=== PATIENT | female | born 1960 | race Caucasian/White ===

== ENCOUNTER 2017-11-28 22:03 | Emergency (ER) | payer OTHER ==
--- OUTSIDE RECORDS SUMMARY | 2017-11-28 22:07 | XMS REPORT | Clinical Summary ---
:1960 Author Organization [facility] Address [address] [place] [address] Care Team Providers Name Role Phone Asked, No Pcp Primary Care Provider Unavailable Allergies Active Allergy Reactions Severity Noted Date Comments Codeine GI Intolerance Medium 10/11/2016 Vomiting Penicillins Anaphylaxis High 04/06/2017 Current Medications Prescription Sig. Disp. Refills Start Date End Date Status spironolactone Take 0.5 mg by Active (ALDACTONE) 25 MG mouth daily. tablet ALPRAZolam (XANAX) 2 Take 2 mg by Active MG tablet mouth 3 (three) times a day. furosemide (LASIX) Take 80 mg by Discontinued 80 mg tablet mouth daily. 7 enalapril (VASOTEC) Take 5 mg by Discontinued 5 MG tablet mouth daily. 7 digOXIN (LANOXIN) Take 125 mcg Discontinued 125 mcg tablet by mouth 7 daily. potassium chloride Take 20 mEq by Discontinued (KLOR-CON) 20 mEq mouth daily. 7 packet traMADol (ULTRAM) 50 Take 1 tablet 60 tablet 0 04/19/2017 mg tablet (50 mg total) 7 by mouth 3 (three) times a day as needed for moderate pain for up to 60 doses. amIODarone Take 1 tablet 60 tablet 1 04/19/2017 (PACERONE) 400 MG (400 mg total) 7 tablet by mouth every 12 (twelve) hours for 30 days. apixaban (ELIQUIS) Take 1 tablet 60 tablet 0 04/19/2017 2.5 mg tablet (2.5 mg total) 7 by mouth 2 (two) times a day for 30 days. docusate sodium Take 1 capsule 60 capsule 0 04/19/2017 (COLACE) 100 MG (100 mg total) 7 capsule by mouth 2 (two) times a day for 30 days. polyethylene glycol Take 17 g by 30 packet 0 04/19/2017 (MIRALAX) 17 gram mouth daily 7 packet for 30 days. furosemide (LASIX) Take 3 tablets 180 tablet 2 04/19/2017 Discontinued 20 mg tablet (60 mg total) 7 by mouth 2 (two) times a day for 30 days. lidocaine (LIDODERM) Place 1 patch 30 patch 0 04/19/2017 5 % on the skin 7 daily for 30 days. Remove & Discard patch within 12 hours or as directed by furosemide (LASIX) Take 4 tablets 120 tablet 11 05/05/2017 20 mg tablet (80 mg total) 7 by mouth 2 (two) times a day for 30 days. potassium chloride Take 20 mEq by 30 packet 0 05/05/2017 (KLOR-CON) 20 mEq mouth daily 7 packet for 30 days. Active Problems Problem Noted Date Hypokalemia 05/04/2017 VT (ventricular tachycardia) 05/04/2017 Delirium due to multiple etiologies 04/11/2017 A-fib 04/10/2017 Cardiogenic shock 04/10/2017 Atrial fibrillation 04/09/2017 Anxiety 04/07/2017 Acute right otitis media 04/07/2017 Shortness of breath 04/06/2017 Combined systolic and diastolic congestive heart failure 10/11/2016 Encounters Date Type Specialty Care Team Description 05/04/2017 - Hospital Encounter Intensive Care Nicole Venegas Acute on chronic 05/05/2017 MD Anaid combined systolic Cem Rascon and diastolic MD Michael congestive heart failure (Primary Dx) 04/21/2017 Telephone Cardiology Pedro Torres 04/19/2017 Documentation Transplant Stephanie Rice MD 04/10/2017 Procedure Pass Procedural Cardiology 04/10/2017 Surgery Procedural Trachtenberg, Cv right heart cath Cardiology MD Los - Please leave in triple lumen [12672 (CPT)] 04/09/2017 Anesthesia Event Procedural Mary Jimenez CRNA 04/09/2017 Procedure Pass Procedural Cardiology 04/09/2017 Surgery Procedural Kiley Carias Ep cardioversion Cardiology MD Francia aborted lacy performed [19945 (CPT)] 04/06/2017 - Hospital Encounter Cardiology Kymberly Contreras Chest pain, unspecified type (Primary Dx); 04/19/2017 MD Pepe Shortness of breath; Swapnil Cisneros, Leukocytosis, unspecified type; MD Juliette Acute renal failure, unspecified acute renal failure type; Prsaanna Pyle Dehydration; Carli Blandon MD Lactic acidosis; Chronic heart failure, unspecified heart failure type; SOB (shortness of breath); Acute on chronic combined systolic and diastolic congestive heart failure; Anxiety; Acute mucoid otitis media of right ear; Paroxysmal atrial fibrillation after 11/27/2016 Family History Medical History Relation Name Comments Heart disease Father Liver disease Mother Relation Name Status Comments Father Mother Social History Tobacco Use Types Packs/Day Years Used Date Former Smoker Cigarettes Tobacco Cessation: Counseling Given: No Alcohol Use Drinks/Week oz/Week Comments No Sex Assigned at Date Recorded Not on file Last Filed Vital Signs Vital Sign Reading Time Taken Blood Pressure 128/66 05/05/2017 9:00 AM CDT Pulse 69 05/05/2017 10:00 AM CDT Temperature 36.7 C (98.1 F) 05/05/2017 8:00 AM CDT Respiratory Rate 22 05/05/2017 10:00 AM CDT Oxygen Saturation 96% 05/05/2017 10:00 AM CDT Inhaled Oxygen Concentration - - Weight 57.9 kg (127 lb 9.6 oz) 05/05/2017 5:00 AM CDT Height 157.5 cm (5' 2") 04/07/2017 12:54 AM CDT Body Mass Index 23.34 05/05/2017 5:00 AM CDT Plan of Treatment Health Maintenance Due Date Last Done Comments PAP SMEAR 1980 COLONOSCOPY 2009 MAMMOGRAM 2009 INFLUENZA VACCINE 03/20/2018 Implants Implanted Type Area Hand Cell Tuber Device Expiration Model / Identifier Date Serial / Lot Generator Grega Tenrikki Florez Frame Polisher-D - [id number] - [id number] Cardiac Pacemaker N/A : [employer] 08/19/2018 [id number] / Implanted: Qty: 1 on 10/11/2016 by Kiley Carias Jr., MD Generators N/A MEDICAL [id number] / [id number] Quartet, Lv Leads, Model 1458q-86 - [id number] - [id number] Cardiac Pacing N/A : [employer] 05/19/2019 [id number] / Implanted: Qty: 1 on 10/11/2016 by Kiley Carias Jr., MD Leads or N/A MEDICAL [id number] / Electrodes or [id number] Accessories Tendril Sts, Pacemaker Leads, Model [id number]/52 - [id number] - [id number] Cardiac Pacing N/A: [employer] 07/19/2019 [id number] / Implanted: Qty: 1 on 10/11/2016 by Kiley Carias Jr., MD Leads or N/A MEDICAL [id number] / Electrodes or [id number] Accessories Envlp Impl Crdvrtr Dfb Antbctrl Fully Resorb Lg Aigissrx R - [id number] Cardiovascular N/A: [employer] [id number] / Implanted: 10/11/2016 (Quantity not on file) Implants N/A / Procedures Procedure Name Priority Date/Time Associated Comments Diagnosis ECHOCARDIOGRAM 2D Routine 05/04/2017 5:48 Results for this COMPLETE W MMODE PM CDT procedure are in SPECTRAL COLOR DOPPLER the results (12691) section. CV DEFIBRILLATOR Routine 05/04/2017 1:42 PROGRAMMING ML PM CDT CV RIGHT HEART CATH Routine 04/10/2017 5:28 Results for this PM CDT procedure are in the results section. ECHOCARDIOGRAM Routine 04/09/2017 11:54 Results for this TRANSESOPHAGEAL AM CDT procedure are in the results section. EP CARDIOVERSION ABORTED Routine 04/09/2017 11:37 Results for this LACY PERFORMED AM CDT procedure are in the results section. ECHOCARDIOGRAM 2D Routine 04/07/2017 8:34 Results for this COMPLETE W MMODE AM CDT procedure are in SPECTRAL COLOR DOPPLER the results (68928) section. after 11/27/2016 Results Potassium level (05/05/2017 5:45 AM)Only the most recent of3 resultswithin the time period is included. Component Value Ref Range Potassium SEE COMMENT 3.5 - 5.0 mEq/L Comment: Footnote--------- Unable to report result, specimen hemolyzed. Specimen Performing Laboratory Plasma specimen [facility] DEPARTMENT OF PATHOLOGY AND GENOMIC MEDICINE [address] [place] [address] Phosphorus level (05/05/2017 5:45 AM)Only the most recent of5 resultswithin the time period is included. Component Value Ref Range Phosphorus 3.0 2.4 - 4.5 mg/dL Specimen Performing Laboratory Plasma specimen [facility] DEPARTMENT OF PATHOLOGY AND GENOMIC MEDICINE [address] [place] [address] Estimated GFR (05/05/2017 3:30 AM)Only the most recent of17 resultswithin the time period is included. Component Value Ref Range GFR Non Af Amer 29 (A) mL/min/1.73 m2 GFR Af Amer 35 (A) mL/min/1.73 m2 Comment: Chronic kidney disease: <60 mL/min/1.73m2 Kidney failure: <15 mL/min/1.73m2 The estimated GFR is calculated from the IDMS-traceable Modification of Diet in Renal Disease Equation. The accuracy of the calculation is poor when the creatinine is normal. Calculated values >90 mL/min/1.73m2 are not reported. This equation has not been validated in children (<18 years), women, the elderly (>70 years), or ethnic groups other than Caucasians and Americans. Specimen Performing Laboratory Plasma specimen [facility] DEPARTMENT OF PATHOLOGY AND GENOMIC MEDICINE [address] [place] [address] 19670 CBC with platelet and differential (05/05/2017 3:30 AM)Only the most recent of14 resultswithin the time period is included. Component Value Ref Range WBC 7.10 4.50 - 11.00 k/uL RBC 3.32 (L) 4.20 - 5.50 m/uL HGB 9.6 (L) 12.0 - 16.0 g/dL HCT 31.2 (L) 37.0 - 47.0 % MCV 94.0 82.0 - 100.0 fL MCH 28.9 27.0 - 34.0 pg MCHC 30.8 (L) 31.0 - 37.0 g/dL RDW - SD 50.4 37.0 - 55.0 fL MPV 12.0 8.8 - 13.2 fL Platelet count 210 150 - 400 k/uL Nucleated RBC 0.60 /100 WBC Neutrophils 62.2 39.0 - 69.0 % Lymphocytes 17.7 (L) 25.0 - 45.0 % Monocytes 13.8 (H) 0.0 - 10.0 % Eosinophils 4.9 0.0 - 5.0 % Basophils 0.8 0.0 - 1.0 % Immature granulocytes 0.6Comment: "Immature granulocytes" 0.0 - 1.0 % (promyelocytes, myelocytes, metamyelocytes) Specimen Performing Laboratory Blood [facility] DEPARTMENT PATHOLOGY [address] [address] Magnesium level (05/05/2017 3:30 AM)Only the most recent of10 resultswithin the time period is included. Component Value Ref Range Magnesium 2.1 1.6 - 2.6 mg/dL Specimen Performing Laboratory Plasma specimen [facility] PATHOLOGY [place] [id number] Ionized calcium (05/05/2017 3:30 AM)Only the most recent of4 resultswithin the time period is included. Component Value Ref Range pH 7.68 Ionized calcium 0.88 (L) 1.11 - 1.32 mmol/L Specimen Performing Laboratory Plasma specimen [facility] PATHOLOGY [address] [address] Basic metabolic panel (05/05/2017 3:30 AM)Only the most recent of9 resultswithin the time period is included. Component Value Ref Range Sodium 136 135 - 148 mEq/L Potassium Footnote 3.5 - 5.0 mEq/L Chloride 95 (L) 98 - 112 mEq/L CO2 28 24 - 31 mEq/L Anion gap 13 7 - 15 mEq/L Comment: Starting from November , anion gap calculation no longer incorporates potassium. Please note the change. BUN 25 (H) 6 - 20 mg/dL Creatinine 1.8 (H) 0.5 - 0.9 mg/dL Glucose 102 (H) 65 - 99 mg/dL Calcium 8.2 (L) 8.3 - 10.2 mg/dL Specimen Performing Laboratory Plasma specimen [facility] DEPARTMENT PATHOLOGY AND [place] [id number] Echocardiogram complete w contrast and 3D if needed (05/04/2017 5:48 PM) Specimen Performing Laboratory [facility] [address] [place] [address] Narrative Echocardiography Report [address] [place], [place] [address]Alan[address], [place] [address] Pat.Name:Penelope MARI.ID:[id number] .Date: 05/04/2017 Refer.MD:CEM RASCON MD Exam Time: 4:54:00 PMStudy Type:Routine Echo Height:62inWeight:126lb BSA: 1.57 m2 DOBAge:1960,56Y Sex: FEMALEBP:84/54 HR:63 bpmSonogrphr: ABRAHAM Robison Pat. Stat.:Inpatient Room:[place] [address] Study Status:Final Echo Event ID:[id number] Order ID:[id number] Reason for Study:Arrhythmias - Sustained or nonsustained atrial fibrillation, SVT, or VT; HFrEF Procedures:2D Echo, Colorflow Doppler Race:C SUMMARY: LV systolic function is severely depressed. RV systolic function is mild to moderately depressed. FINDINGS: LV: LV size is severely enlarged. LV systolic function is severelydepressed. Global hypokinesis. Estimated EF is <20%. RV: RV size is normal. A pacemaker wire is seen in the RV. RV systolicfunction is mild to moderately depressed. RV wall motionis hypokinetic. LA: LA volume is difficult to assess. RA: RA volume is difficult to assess. A pacemaker wire is seen. AO: Aortic root diameter is normal. BERNADINE: Small posterior pericardial effusion. AV: Mild thickening of AV leaflets. MV: No structural MV abnormalities noted. Mild mitral regurgitation. PV: No structural PV abnormalities noted. Mild pulmonic regurgitation. TV: No structural TV abnormalities noted. Mild tricuspid regurgitation Lay: LV relaxation is impaired. LV filling pressure is elevated. Other:Estimated PA systolic pressure is 51 mmHg, assuming a mean RAPof 10 mmHg. MEASUREMENTS: 2D Parasternal [place] Ao An1.8 cmLVPWd0.8 cm LVOT 1.7 cmLA Ds3.5 cm LVIDd7.2 cmIndex 4.6 cm/m Ao Rtd 2.5 cm Index1.6 cm/m LVIDs6.6 cmLV Wlmw130.8 g(87-129) LV%fs8.4 % LVM Ycjws315.2 g/m2 IVSd 0.6 cmRWT0.2 DOPPLER LVOT Stroke Vol LVOT 1.7 cmLVOT CO1.2 l/min LVOT TVI 8.5 cmLVOT CI0.7 l/m/m2 LVOT Tm233 nuwsXL73 bpm LVOT SV 19.2 ml TV Pressure Gradient TV PkVel 316.4 cm/sTV PG 40 mmHg Signed 05/05/2017 05:52 PM Teresita Sanders M.D. Procedure Note Interface, Radiology Results In - 05/05/2017 5:52 PM CDT Echocardiography Report [address]Name: JALEEL MARI Pat.ID: [id number] St.Date: 05/04/2017 Refer.MD: CEM RASCON MD Exam Time: 4:54:00 PM Study Type:Routine Echo Height: 62in Weight: 126lb BSA: 1.57 m2 Age: 2 1960,56Y Sex: FEMALE BP: 84/54 HR: 63 bpm Sonogrphr: ABRAHAM Robison Pat. Stat.:Inpatient Room: [place] [address] Study Status:Final Echo Event ID:[id number] Order ID: [id number] Reason for Study:Arrhythmias - Sustained or nonsustained atrial fibrillation, SVT, or VT; HFrEF Procedures:2D Echo, Colorflow Doppler Race: C SUMMARY: LV systolic function is severely depressed. RV systolic function is mild to moderately depressed. FINDINGS: LV: LV size is severely enlarged. LV systolic function is severely depressed. Global hypokinesis. Estimated EF is <20%. RV: RV size is normal. A pacemaker wire is seen in the RV. RV systolic function is mild to moderately depressed. RV wall motion is hypokinetic. LA: LA volume is difficult to assess. RA: RA volume is difficult to assess. A pacemaker wire is seen. AO: Aortic root diameter is normal. BERNADINE: Small posterior pericardial effusion. AV: Mild thickening of AV leaflets. MV: No structural MV abnormalities noted. Mild mitral regurgitation. PV: No structural PV abnormalities noted. Mild pulmonic regurgitation. TV: No structural TV abnormalities noted. Mild tricuspid regurgitation Lay: LV relaxation is impaired. LV filling pressure is elevated. Other: Estimated PA systolic pressure is 51 mmHg, assuming a mean RAP of 10 mmHg. MEASUREMENTS: 2D Parasternal [place] Ao An 1.8 cm LVPWd 0.8 cm LVOT 1.7 cm LA Ds 3.5 cm LVIDd 7.2 cm Index 4.6 cm/m Ao Rtd 2.5 cm Index 1.6 cm/m LVIDs 6.6 cm LV Mass 224.8 g (87-129) LV%fs 8.4 % LVM Index 143.2 g/m2 IVSd 0.6 cm RWT 0.2 DOPPLER LVOT Stroke Vol LVOT 1.7 cm LVOT CO 1.2 l/min LVOT TVI 8.5 cm LVOT CI 0.7 l/m/m2 LVOT Tm 233 msec HR 60 bpm LVOT SV 19.2 ml TV Pressure Gradient TV PkVel 316.4 cm/s TV PG 40 mmHg Signed 05/05/2017 05:52 PM Teresita Sanders M.D. CV pacemaker defib or ilr interrogation (05/04/2017 1:42 PM) Specimen Performing Laboratory [facility] [address] [place] [address] POC glucose (05/04/2017 9:04 AM)Only the most recent of3 resultswithin the time period is included. Component Value Ref Range POC glucose 109 (H) 65 - 99 mg/dL Comment: [facility] Notified RN Meter ID: [id number] Pole Shaver: Kailey Davis Specimen Performing Laboratory [facility] DEPARTMENT OF PATHOLOGY AND GENOMIC MEDICINE [address] [place] [address] XR Chest 1 Vw Portable (05/04/2017 2:22 AM)Only the most recent of2 resultswithin the time period is included. Specimen Performing Laboratory [facility] [address] [place] [address] Narrative EXAMINATION: XR CHEST 1 VW PORTABLE CLINICAL HISTORY: Congestive Heart Failure COMPARISON:04/10/2017.. IMPRESSION: Left AICD with stable leads. No pleural effusion or pneumothorax. The cardiac silhouette appears prominent, stable. No acute osseous abnormalities. Right axillary clips. [facility]-[id number] Procedure Note Interface, Radiology Results Incoming - 05/04/2017 2:36 AM CDT EXAMINATION: XR CHEST 1 VW PORTABLE CLINICAL HISTORY: Congestive Heart Failure COMPARISON: 04/10/2017.. IMPRESSION: Left AICD with stable leads. No pleural effusion or pneumothorax. The cardiac silhouette appears prominent, stable. No acute osseous abnormalities. Right axillary clips. [facility]-[id number] Troponin (05/04/2017 1:00 AM)Only the most recent of3 resultswithin the time period is included. Component Value Ref Range Troponin <0.30 0.00 - 0.30 ng/mL Comment: 0.30 - 1.49 ng/mlMay indicate increased risk of acute coronary syndrome. >=1.5 ng/mlConsistent with acute myocardial infarction. The diagnostic value of a single normal or non-diagnostic result is questionable.Serial samples at 2-6 hour intervals are required to rule out acute myocardial injury. Specimen Performing Laboratory Plasma specimen [facility] DEPARTMENT OF PATHOLOGY AND [facility] MEDICINE [address] [place] [address] Partial thromboplastin time, activated (05/04/2017 1:00 AM) Component Value Ref Range PTT 32.2 23.0 - 36.0 sec Comment: PTT therapeutic range for unfractionated heparin is 61.0-112.0 seconds which corresponds to Anti-Xa 0.3-0.7 U/ml. Specimen Performing Laboratory Blood [facility] DEPARTMENT OF PATHOLOGY AND [facility] MEDICINE [address] [place] [address] Prothrombin time with INR (05/04/2017 1:00 AM)Only the most recent of3 resultswithin the time period is included. Component Value Ref Range Prothrombin time 17.8 (H) 12.0 - 15.0 sec INR 1.4 Comment: The International Normalized Ratio (INR) is a therapeutic monitoring tool for patients who are stable on oral anticoagulant therapy. An INR of 2.0-3.0 is suggested for deep vein thrombosis/pulmonary embolism. Specimen Performing Laboratory Blood [facility] DEPARTMENT OF PATHOLOGY AND [facility] MEDICINE [address] [place] [address] B natriuretic peptide (05/04/2017 1:00 AM)Only the most recent of2 resultswithin the time period is included. Component Value Ref Range BNP 1,284 (H) 0 - 100 pg/mL Specimen Performing Laboratory Blood [facility] DEPARTMENT OF PATHOLOGY AND [address] [address] Comprehensive metabolic panel (05/04/2017 1:00 AM)Only the most recent of8 resultswithin the time period is included. Component Value Ref Range Sodium 145 135 - 148 mEq/L Potassium 3.6 3.5 - 5.0 mEq/L Chloride 97 (L) 98 - 112 mEq/L CO2 30 24 - 31 mEq/L Anion gap 18 (H) 7 - 15 mEq/L Comment: Starting from November , anion gap calculation no longer incorporates potassium. Please note the change. BUN 27 (H) 6 - 20 mg/dL Creatinine 1.9 (H) 0.5 - 0.9 mg/dL Glucose 104 (H) 65 - 99 mg/dL Calcium 8.5 8.3 - 10.2 mg/dL Protein 6.9 6.3 - 8.3 g/dL Comment: [place] 4.6-7.0 g/dL 1 week 4.4-7.6 g/dL 7 months-1year5.1-7.3 g/dL 1-2 years5.6-7.5 g/dL >3 years6.0-8.0 g/dL 18-150 6.3-8.3 g/dL Albumin 3.2 (L) 3.5 - 5.0 g/dL A/G ratio 0.9 0.7 - 3.8 Alkaline phosphatase 94 35 - 104 U/L AST 38 (H) 10 - 35 U/L ALT 47 5 - 50 U/L Total bilirubin 1.2 0.0 - 1.2 mg/dL Specimen Performing Laboratory Plasma specimen [facility] DEPARTMENT OF PATHOLOGY AND GENOMIC MEDICINE [address] [place] [address] ECG 12 lead (05/04/2017 12:39 AM)Only the most recent of4 resultswithin the time period is included. Component Value Ref Range Ventricular rate 60 Atrial rate 58 QRSD interval 168 QT interval 590 QTC interval 590 QRS axis 1 141 T wave axis 251 EKG impression AV dual-paced rhythm-Abnormal ECG-In automated comparison with ECG of 10-APR-2017 18:38,-Vent. rate has decreased BY 20 BPM- Specimen Performing Laboratory [facility] MUSE [address] [place] [address] ECG ED Preliminary Interpretation - NOT AN ORDER (04/28/2017 6:00 PM) Flavia Contreras MD 04/28/20176:00 PM ECG ED Preliminary Interpretation - Not an Order Performed by: KYMBERLY CONTRERAS Authorized by: KYMBERLY CONTRERAS ECG reviewed by ED Physician in the absence of a 3d designer: yes Interpretation: Interpretation: abnormal Rate: ECG rate:85 ECG rate assessment: normal Rhythm: Rhythm comment:Paced v QRS: QRS axis:Left QRS intervals:Wide ST segments: ST segments:Normal Manual differential (04/19/2017 4:05 AM)Only the most recent of4 resultswithin the time period is included. Component Value Ref Range Manual differential PERFORMED Neutrophils 77.0 (H) 39.0 - 69.0 % Lymphocytes 12.0 (L) 25.0 - 45.0 % Monocytes 6.0 0.0 - 10.0 % Eosinophils 4.0 0.0 - 5.0 % Basophils 1.0 0.0 - 1.0 % Metamyelocytes 0 % Promyelocytes 0 % Platelet slide review Yenny adequate Enlarged platelets Moderate (A) Specimen Performing Laboratory [facility] DEPARTMENT OF PATHOLOGY AND [facility] MEDICINE [address] [place] [address] Hepatic function panel (04/18/2017 8:35 AM) Component Value Ref Range Albumin 3.4 (L) 3.5 - 5.0 g/dL Total bilirubin 0.8 0.0 - 1.2 mg/dL Bilirubin direct 0.3 0.0 - 0.3 mg/dL Alkaline phosphatase 107 (H) 35 - 104 U/L Protein 8.0 6.3 - 8.3 g/dL Comment: [place] 4.6-7.0 g/dL 1 week 4.4-7.6 g/dL 7 months-1year5.1-7.3 g/dL 1-2 years5.6-7.5 g/dL >3 years6.0-8.0 g/dL 18-150 6.3-8.3 g/dL ALT 139 (H) 5 - 50 U/L AST 42 (H) 10 - 35 U/L Specimen Performing Laboratory Plasma specimen [facility] DEPARTMENT OF PATHOLOGY AND GENOMIC MEDICINE [address] [place] [address] Digoxin level (04/17/2017 4:00 AM)Only the most recent of2 resultswithin the time period is included. Component Value Ref Range Digoxin 4.3 (HH) 0.8 - 2.0 ng/mL Comment: For valid Digoxin results, at least 6 hours should elapse between time of last dose and collection of blood. Otherwise, result may be false high. Therapeutic Range: 0.8 - 2.0 ng/mL DIG results called to and read back by Autumn Luis at04/17/2017 05:02 by BB. Specimen Performing Laboratory Plasma specimen [facility] DEPARTMENT OF PATHOLOGY AND GENOMIC MEDICINE [address] [place] [address] Venous blood gas (04/13/2017 1:20 PM) Component Value Ref Range pH, venous 7.45 (H) 7.32 - 7.42 pCO2, venous 65 (H) 45 - 51 mmHg pO2, venous 33 25 - 40 mmHg Base excess, venous 17 (H) -2 - 2 meq/L O2 saturation, venous 62 40 - 70 % Bicarbonate, venous 44.3 (H) 21.0 - 28.0 mmol/L Specimen Performing Laboratory Blood [facility] DEPARTMENT OF PATHOLOGY AND GENOMIC MEDICINE [address] [place] [address] O2 saturation, venous (04/12/2017 11:50 AM)Only the most recent of4 resultswithin the time period is included. Component Value Ref Range Hemoglobin, venous, syringe 12.7 12.0 - 16.0 g/dL O2 saturation, venous 48 40 - 70 % Specimen Performing Laboratory Blood [facility] DEPARTMENT OF PATHOLOGY AND GENOMIC MEDICINE [address] [place] [address] US Abdomen Complete (04/11/2017 1:39 AM) Specimen Performing Laboratory [facility] [address] [place] [address] Narrative EXAM: US ABDOMEN COMPLETE CLINICAL HISTORY:ABDOMINAL PAIN, Abdominal examination was abnormal for an oval shape mass in mid-abdominal wall in front of rectus abdominus - Please evaluate for possibleabdominal wall hernia - Thanks COMPARISON: None. FINDINGS: Liver:The liver demonstrates normal echogenicity without focal mass. MPV:Doppler evaluation of the portal vein demonstrates normal hepatopedal flow. Main portal vein diameter 0.9 cm. Gallbladder:Patient is status post cholecystectomy. Bile ducts:Common bile duct measures 4 mm, within normal limits. No intrahepatic biliary dilatation. Pancreas:The visualized portions of the pancreas are within normal limits. Spleen:The spleen is homogeneous and not enlarged measuring 8.7 cm. Right kidney:The right kidney is normal in size and echogenicity. There is no evidence of mass, calculi, or hydronephrosis. The right kidney measures 8.4 cm. Left kidney:The left kidney is normal in size and echogenicity. There is no evidence of mass, calculi, or hydronephrosis. The left kidney measures 8.6 cm. Aorta:The visualized upper abdominal aorta demonstrates no evidence of ectasia or aneurysm. IVC:The visualized portions of the inferior vena cava are unremarkable. Ascites:No abnormal abdominal fluid collections are visualized. There is no evidence of ascites. Pleural effusion:There are no pleural effusions. Abdominal ultrasound measurement guidelines *Liver: Abnormal > 15.5 cm (craniocaudal dimension at the midclavicular line) *Spleen:Abnormal > 13 cm *GB: Abnormal > 9 x 4 cm (longitudinal and transverse dimensions) *Gallbladder wall thickness: Abnormal > 3 mm *CBD with GB: Abnormal > 6 mm (under 60 years of age. Allowed 1 additional millimeter per decade after 60) *CBD without GB: Abnormal > 10 mm *Kidneys: Abnormal < 9 cm or > 13 cm *Aorta: Ectatic if 2.5 - 2.9 cm *Aorta: Aneurysmal if > 3 cm *Portal vein: Abnormal > 1.3 cm (varying measurement dependent upon hydration status and respiration) IMPRESSION: 1.No sonographic evidence for mass in the area of the rectus abdominis. The palpable abnormality on physical examination may be secondary to diastases of the rectus abdominis and protrusion of the intra-abdominal contents into the rectus defect. 2.Otherwise unremarkable sonographic evaluation of the abdomen. [facility]-[id number] Procedure Note [facility], Radiology Results Incoming - 04/11/2017 1:50 AM CDT EXAM: US ABDOMEN COMPLETE CLINICAL HISTORY: ABDOMINAL PAIN, Abdominal examination was abnormal for an oval shape mass in mid-abdominal wall in front of rectus abdominus - Please evaluate for possible abdominal wall hernia - Thanks COMPARISON: None. FINDINGS: Liver: The liver demonstrates normal echogenicity without focal mass. MPV: Doppler evaluation of the portal vein demonstrates normal hepatopedal flow. Main portal vein diameter 0.9 cm. Gallbladder: Patient is status post cholecystectomy. Bile ducts: Common bile duct measures 4 mm, within normal limits. No intrahepatic biliary dilatation. Pancreas: The visualized portions of the pancreas are within normal limits. Spleen: The spleen is homogeneous and not enlarged measuring 8.7 cm. Right kidney: The right kidney is normal in size and echogenicity. There is no evidence of mass, calculi, or hydronephrosis. The right kidney measures 8.4 cm. Left kidney: The left kidney is normal in size and echogenicity. There is no evidence of mass, calculi, or hydronephrosis. The left kidney measures 8.6 cm. Aorta: The visualized upper abdominal aorta demonstrates no evidence of ectasia or aneurysm. IVC: The visualized portions of the inferior vena cava are unremarkable. Ascites: No abnormal abdominal fluid collections are visualized. There is no evidence of ascites. Pleural effusion: There are no pleural effusions. Abdominal ultrasound measurement guidelines * Liver: Abnormal > 15.5 cm (craniocaudal dimension at the midclavicular line) * Spleen: Abnormal > 13 cm * GB: Abnormal > 9 x 4 cm (longitudinal and transverse dimensions) * Gallbladder wall thickness: Abnormal > 3 mm * CBD with GB: Abnormal > 6 mm (under 60 years of age. Allowed 1 additional millimeter per decade after 60) * CBD without GB: Abnormal > 10 mm * Kidneys: Abnormal < 9 cm or > 13 cm * Aorta: Ectatic if 2.5 - 2.9 cm * Aorta: Aneurysmal if > 3 cm * Portal vein: Abnormal > 1.3 cm (varying measurement dependent upon hydration status and respiration) IMPRESSION: 1. No sonographic evidence for mass in the area of the rectus abdominis. The palpable abnormality on physical examination may be secondary to diastases of the rectus abdominis and protrusion of the intra-abdominal contents into the rectus defect. 2. Otherwise unremarkable sonographic evaluation of the abdomen. [facility]-[id number] Urinalysis screen and microscopy, with reflex to culture (04/10/2017 10:10 PM) Only the most recent of2 resultswithin the time period is included. Component Value Ref Range Specimen site [place] Color, UA Straw Appearance, UA Clear Specific gravity, UA 1.006 1.001 - 1.035 pH, UA 5.0 5.0 - 8.5 Protein, UA Negative Negative Glucose, UA Negative Negative Ketones, UA Negative Negative Bilirubin, UA Negative Negative Blood, UA Small (A) Negative Nitrite, UA Negative Negative Urobilinogen, UA <2.0 <2.0 Leukocyte esterase, UA Negative Negative Epithelial cells, UA <1 /HPF WBC, UA 3 0 - 4 /HPF RBC, UA <1 0 - 2 /HPF Bacteria, UA Few None seen Yeast, UA None seen Yeast with pseudohyphae, UA None seen Specimen Performing Laboratory Urine [facility] DEPARTMENT OF PATHOLOGY AND GENOMIC MEDICINE [address] [place] [id number] Urine culture (04/10/2017 10:10 PM)Only the most recent of2 resultswithin the time period is included. Component Value Ref Range Urine culture SEE COMMENTComment: Bacteriuria screen negative. Specimen Performing Laboratory [facility] DEPARTMENT OF PATHOLOGY AND [address] [address] Thyroid stimulating hormone (04/10/2017 7:15 PM)Only the most recent of2 resultswithin the time period is included. Component Value Ref Range TSH 2.69 0.27 - 4.20 uIU/mL Specimen Performing Laboratory Plasma specimen [facility] PATHOLOGY [address] [address] T4, free (04/10/2017 7:15 PM)Only the most recent of2 resultswithin the time period is included. Component Value Ref Range T4, free 1.3 0.9 - 1.7 ng/dL Specimen Performing Laboratory Plasma specimen [facility] PATHOLOG[facility] [address] [address] Lactic acid level (04/10/2017 7:15 PM)Only the most recent of3 resultswithin the time period is included. Component Value Ref Range Lactic acid 1.4 0.5 - 2.2 mmol/L Specimen Performing Laboratory Plasma specimen [facility] PATHOLOG[facility] [address] [address] Lipid panel (04/10/2017 7:15 PM)Only the most recent of2 resultswithin the time period is included. Component Value Ref Range Cholesterol 103 <200 mg/dL Triglycerides 98 <150 mg/dL HDL cholesterol 18 (L) >40 mg/dL LDL cholesterol 59Comment: Result obtained by direct LDL <100 mg/dL measurement Lipid panel interpretation SeeBelow Comment: Total Cholesterol (mg/dL) <200 Desirable 310-782Puyveutiir-rtti >=240High Triglycerides (mg/dL) <150 Normal 112-976Lyhdqbxshh-jyeq 200-499High >=500Very high HDL Cholesterol (mg/dL) <40Low (male) <40Low (female) LDL Cholesterol (mg/dL) <100 Optimal 100-129Near or above optimal [phone]-pmhy 160-189High >=190Very high Risk Catergories that modify LDL goals. Risk CatergoriesLDL goal (mg/dL) CHD and CHD risk equivalent<100 (10-year risk >20%) Multiple (2+) risk factors <130 (10-year risk=<20%) 0-1 risk factors <160 (<10-year risk) Defining levels of lipids in metabolic syndrome Triglycerides>=150 mg/dL HDL Cholesterol Men<40 mg/dL Women<40 mg/dL Non-HDL cholesterol is a second target for therapy in persons with high triglycerides (>=200 mg/dL) Specimen Performing Laboratory Plasma specimen [facility] DEPARTMENT OF PATHOLOGY AND GENOMIC MEDICINE [address] [place] [address] Cv invasive peripheral vascular procedure (04/10/2017 5:28 PM) Specimen Performing Laboratory [facility] [address] [place] [address] Narrative Right heart filling pressure is moderately elevated. Pulmonary hypertension is moderate. Wedge pressure is moderate. Cardiac output is decreased. 1. Severely decreased CO and high filling pressures with secondary pulmonary HTN 2. Will start inotropic support and consider advanced therapies evaluation Cv salvage laborer procedure (04/10/2017 5:28 PM) Specimen Performing Laboratory [facility] [address] [place] [address] Narrative Right heart filling pressure is moderately elevated. Pulmonary hypertension is moderate. Wedge pressure is moderate. Cardiac output is decreased. 1. Severely decreased CO and high filling pressures with secondary pulmonary HTN 2. Will start inotropic support and consider advanced therapies evaluation Respiratory pathogen panel (04/09/2017 3:18 PM) Component Value Ref Range Respiratory pathogen panel Negative for all pathogens tested: Negative for Adenovirus Negative for Coronavirus HKU1 Negative for Coronavirus NL63 Negative for Coronavirus 229E Negative for Coronavirus OC43 Negative for Human Metapneumovirus Negative for Rhinovirus/Enterovirus Negative for Influenza A Negative for Influenza A/H1 Negative for Influenza A/H3 Negative for Influenza A/H1-2009 Negative for Influenza B Negative for Parainfluenza Virus 1 Negative for Parainfluenza Virus 2 Negative for Parainfluenza Virus 3 Negative for Parainfluenza Virus 4 Negative for Respiratory Syncytial Virus Negative for Bordetella pertussis Negative for Chlamydophila pneumoniae Negative for Mycoplasma pneumoniae This real-time PCR assay detects the presence of nucleic acids (RNA or DNA) for the respiratory pathogens listed. A result of "Not-detected" does not exclude the possibility of the presence of one or more pathogens at concentrations less than the detectable limits of the assay. Comment: Specimen Information Specimen Source: Nares Specimen Site: Not specified Specimen Performing Laboratory Nares - Not specified [facility] DEPARTMENT OF PATHOLOGY AND GENOMIC MEDICINE [address] [place] [address] Echocardiogram transesophageal (04/09/2017 11:54 AM) Specimen Performing Laboratory [facility] [address] [place] [address] Narrative Transesophageal Echo Report Radha Razo, [place], [place] [address] Pat.Name:Penelope MARI.ID:[id number] .Date: 04/09/2017 Refer.MD:PRASANNA PYLE MD Exam Time: 10:36:00 AM Study Type:LACY Height:62inWeight:120lb BSA: 1.54 m2 DOBAge:1960,56Y Sex: FEMALEBP:114/60 HR:80 bpmSonogrphr: Cony Knott MD Pat. Stat.:Inpatient Study Status:Final Echo Event ID:[id number] Order ID:[id number] Reason for Study:EVAL TO FACILITATE CLINICAL DECISION MAKING WITH REGARD TO ANTICOAGULATION, CARDIOVERSION, AND / OR RADIOFREQUENCY ABLATION. Procedures:Transesophageal Echo with Colorflow Doppler Race:C SUMMARY: Diagnostic of thrombus in LA appendage. Dr Carias notified. FINDINGS: LACY:The attending 3d designer performed the LACY procedure and waspresent for the entire duration. The patient was counseledand an informed consent was obtained. Topical and intravenousanesthesia was administered. The esophagus was intubatedwithout difficulty. The probe was passed to the gastricfundus and all standard echocardiographic views wereobtained. The patient tolerated the procedure well. LV: LV size is severely enlarged. LV function is severely depressed.Overall wall motion is hypokinetic. Estimated EF is<20%. RV: RV size is enlarged. A pacemaker wire is seen in the RV. RV functionis depressed. LA: LA volume is enlarged. Spontaneous echo contrast is seen in theLA/LA appendage. Diagnostic of thrombus in LA appendage. RA: RA volume is enlarged. A pacemaker wire is seen. AO: Mild atherosclerotic changes seen in the aortic arch and descendingaorta. BERNADINE: No pericardial effusion. AV: Tricuspid aortic valve. PV: No structural PV abnormalities noted. Mild pulmonic regurgitation. TV: No structural TV abnormalities noted. Mild tricuspid regurgitation MV: Moderate mitral regurgitation. Etiology of MR is secondary toLV dysfunction and remodeling. LACY: Anesthesia: Per Anesthesia ASA Class: 4 Physician: Paras Loza MD Aircraft Quality Control Inspector: Cony Knott MD Pre TEEBP HR Post LACY BP HR 114/60 53687/50 80 Meds:Viscous xylocaine, Cetacaine spray to oropharynx, Per Anesthesia Complications: None Condition: Stable Signed 04/09/2017 1:12:00 PM Paras Loza MD Procedure Note Interface, Radiology Results In - 04/10/2017 12:23 PM CDT Transesophageal Echo Report [id number], [place], [place] [address] Pat.Name: JALEEL MARI Pat.ID: [id number] .Date: 04/09/2017 Refer.MD: PRASANNA PYLE MD Exam Time: 10:36:00 AM Study Type:LACY Height: 62in Weight: 120lb BSA: 1.54 m2 Age: 2 1960,56Y Sex: FEMALE BP: 114/60 HR: 80 bpm Sonogrphr: Cony Knott MD Pat. Stat.:Inpatient Study Status:Final Echo Event ID:[id number] Order ID: [id number] Reason for Study:EVAL TO FACILITATE CLINICAL DECISION MAKING WITH REGARD TO ANTICOAGULATION, CARDIOVERSION, AND / OR RADIOFREQUENCY ABLATION. Procedures:Transesophageal Echo with Colorflow Doppler Race: C SUMMARY: Diagnostic of thrombus in LA appendage. Dr Carias notified. FINDINGS: LACY: The attending 3d designer performed the LACY procedure and was present for the entire duration. The patient was counseled and an informed consent was obtained. Topical and intravenous anesthesia was administered. The esophagus was intubated without difficulty. The probe was passed to the gastric fundus and all standard echocardiographic views were obtained. The patient tolerated the procedure well. LV: LV size is severely enlarged. LV function is severely depressed. Overall wall motion is hypokinetic. Estimated EF is <20%. RV: RV size is enlarged. A pacemaker wire is seen in the RV. RV function is depressed. LA: LA volume is enlarged. Spontaneous echo contrast is seen in the LA/LA appendage. Diagnostic of thrombus in LA appendage. RA: RA volume is enlarged. A pacemaker wire is seen. AO: Mild atherosclerotic changes seen in the aortic arch and descending aorta. BERNADINE: No pericardial effusion. AV: Tricuspid aortic valve. PV: No structural PV abnormalities noted. Mild pulmonic regurgitation. TV: No structural TV abnormalities noted. Mild tricuspid regurgitation MV: Moderate mitral regurgitation. Etiology of MR is secondary to LV dysfunction and remodeling. LACY: Anesthesia: Per Anesthesia ASA Class: 4 Physician: Paras Loza MD Aircraft Quality Control Inspector: Cony Knott MD Pre LACY BP HR Post LACY BP HR 114/60 80 108/50 80 Meds: Viscous xylocaine, Cetacaine spray to oropharynx, Per Anesthesia Complications: None Condition: Stable Signed 04/09/2017 1:12:00 PM Paras Loza MD Cv electrophysiology procedure (04/09/2017 11:37 AM) Specimen Performing Laboratory [facility] [address] [place] [address] Narrative Cardiversion aborted due to DECLAN clot and SEC Smear review (04/09/2017 5:30 AM)Only the most recent of2 resultswithin the time period is included. Component Value Ref Range Platelet slide review Yenny adequate Anisocytosis Moderate Ovalocytes Moderate Enlarged platelets Moderate (A) Neutrophils, vacuolated Slight Specimen Performing Laboratory [facility] DEPARTMENT OF PATHOLOGY AND GENOMIC MEDICINE [address] [place] [address] CBC hemogram (04/07/2017 6:50 PM) Component Value Ref Range WBC 8.62 4.50 - 11.00 k/uL RBC 4.22 4.20 - 5.50 m/uL HGB 12.5 12.0 - 16.0 g/dL HCT 38.5 37.0 - 47.0 % MCV 91.2 82.0 - 100.0 fL MCH 29.6 27.0 - 34.0 pg MCHC 32.5 31.0 - 37.0 g/dL RDW - SD 46.9 37.0 - 55.0 fL MPV 11.7 8.8 - 13.2 fL Platelet count 126 (L) 150 - 400 k/uL Nucleated RBC 0.00 /100 WBC Specimen Performing Laboratory [facility] DEPARTMENT OF PATHOLOGY AND GENOMIC MEDICINE [address] [place] [address] Echocardiogram complete w contrast and 3D if needed (04/07/2017 8:34 AM) Specimen Performing Laboratory [facility] [address] [place], [place] [id number] Narrative Echocardiography Report [address] [place] [address].Name:Penelope MARI.ID:[id number] St.Date: 04/07/2017 Refer.MD:PRASANNA PYLE MD Exam Time: 8:03:00 AMStudy Type:Routine Echo Height:62inWeight:125lb BSA: 1.57 m2 DOBAge:1960,56Y Sex: FEMALEBP:105/58 HR:86 bpmSonogrphr: VANDANA Morris, [facility] Pat. Stat.:Inpatient Room:J809 Study Status:Final Echo Event ID:[id number] Order ID:[id number] Reason for Study:Chest Pains History / Clinical:Congestive Heart Failure, Hyperlipidemia, Hypertension, Cancer, Respiratory Failure, Abdominal Pain Procedures:2D Echo, Colorflow Doppler, Intravenous Optison Contrast Race:C FINDINGS: LV: LV size is moderately enlarged. LV function is severely depressed.Estimated EF is <20%. Septal motion is paradoxical. RV: RV size is mildly enlarged. A pacemaker wire is seen in the RV.RV function is moderately depressed. LA: LA volume is moderately enlarged. RA: RA volume is normal. A catheter or pacemaker wire is seen. AO: Aortic root diameter is normal. BERNADINE: Trace posterolateral pericardial effusion. AV: Mild thickening and calcification of AV leaflets. A trace of aorticregurgitation. MV: Mild thickening of mitral leaflets with apical tethering. Mildmitral regurgitation. PV: No structural PV abnormalities noted. Mild pulmonic regurgitation. TV: No structural TV abnormalities noted. A trace of tricuspid regurgitation Other:Estimated PA systolic pressure is at least 30 mmHg, assuming amean RAP of 10 mmHg. MEASUREMENTS: 2D Parasternal [place] LVOT 1.7 cmLA Ds4.1 cm LVIDd5.4 cmIndex 3.5 cm/m Ao An1.8 cm LVIDs4.8 cmAo Rtd 2.6 cm Index1.7 cm/m LV%fs 11.1 % LV Edkz474.8 g(87-129) IVSd 0.8 cmLVM Index 69.3 g/m2 LVPWd0.4 cmRWT0.1 Right Ventricle RVIDd4.1 cm (2.6-4.3) LA Sng Plane LA Area 21.8 cm2(8.8-23.4) LA Vol66.6 ml Index42.4 ml/m LA LngAx 5.9 cm RA Sng Plane RA Area 16.7 cm2(8.3-19.5) RA Vol42.8 ml Index27.3 ml/m RA LngAx 5.2 cm DOPPLER LVOT Stroke Vol LVOT 1.7 cmLVOT CO1.9 l/min LVOT TVI10.6 cmLVOT CI1.2 l/m/m2 LVOT Tm215 dijbXJ56 bpm LVOT SV 24.1 ml WALL MOTION: RESTING WALL MOTION: Wall Index=2.6 Signed 04/07/2017 01:52 PM Shanel Villavicencio MD Procedure Note Interface, Radiology Results In - 04/07/2017 1:52 PM CDT Echocardiography Report [address] [place] [address] Pat.Name: JALEEL MARI Pat.ID: [id number] .Date: 04/07/2017 Refer.MD: PRASANNA PYLE MD Exam Time: 8:03:00 AM Study Type:Routine Echo Height: 62in Weight: 125lb BSA: 1.57 m2 Age: 2 1960,56Y Sex: FEMALE BP: 105/58 HR: 86 bpm Sonogrphr: VANDANA Morris, [facility] Pat. Stat.:Inpatient Room: [facility] Study Status:Final Echo Event ID:[id number] Order ID: [id number] Reason for Study:Chest Pains History / Clinical:Congestive Heart Failure, Hyperlipidemia, Hypertension, Cancer, Respiratory Failure, Abdominal Pain Procedures:2D Echo, Colorflow Doppler, Intravenous Optison Contrast Race: C FINDINGS: LV: LV size is moderately enlarged. LV function is severely depressed. Estimated EF is <20%. Septal motion is paradoxical. RV: RV size is mildly enlarged. A pacemaker wire is seen in the RV. RV function is moderately depressed. LA: LA volume is moderately enlarged. RA: RA volume is normal. A catheter or pacemaker wire is seen. AO: Aortic root diameter is normal. BERNADINE: Trace posterolateral pericardial effusion. AV: Mild thickening and calcification of AV leaflets. A trace of aortic regurgitation. MV: Mild thickening of mitral leaflets with apical tethering. Mild mitral regurgitation. PV: No structural PV abnormalities noted. Mild pulmonic regurgitation. TV: No structural TV abnormalities noted. A trace of tricuspid regurgitation Other: Estimated PA systolic pressure is at least 30 mmHg, assuming a mean RAP of 10 mmHg. MEASUREMENTS: 2D Parasternal [place] LVOT 1.7 cm LA Ds 4.1 cm LVIDd 5.4 cm Index 3.5 cm/m Ao An 1.8 cm LVIDs 4.8 cm Ao Rtd 2.6 cm Index 1.7 cm/m LV%fs 11.1 % LV Mass 108.8 g (87-129) IVSd 0.8 cm LVM Index 69.3 g/m2 LVPWd 0.4 cm RWT 0.1 Right Ventricle RVIDd 4.1 cm (2.6-4.3) LA Sng Plane LA Area 21.8 cm2 (8.8-23.4) LA Vol 66.6 ml Index 42.4 ml/m LA LngAx 5.9 cm RA Sng Plane RA Area 16.7 cm2 (8.3-19.5) RA Vol 42.8 ml Index 27.3 ml/m RA LngAx 5.2 cm DOPPLER LVOT Stroke Vol LVOT 1.7 cm LVOT CO 1.9 l/min LVOT TVI 10.6 cm LVOT CI 1.2 l/m/m2 LVOT Tm 215 msec HR 80 bpm LVOT SV 24.1 ml WALL MOTION: RESTING WALL MOTION: Wall Index=2.6 Signed 04/07/2017 01:52 PM Shanel Villavicencio MD Gram stain (04/07/2017 1:05 AM) Component Value Ref Range Gram stain result No WBC's or organisms seen. Comment: Specimen Information Specimen Source: Urine Specimen Site: See UA Specimen Performing Laboratory Urine [facility] DEPARTMENT OF PATHOLOGY AND GENOMIC MEDICINE [address] [place] [id number] Blood culture, aerobic & anaerobic (04/06/2017 7:44 PM)Only the most recent of2 resultswithin the time period is included. Component Value Ref Range Blood culture isolate No growth after 5 days of incubation. Comment: Specimen Information Specimen Source: Blood Specimen Site: Foot, left Specimen Performing Laboratory Blood - Foot, left [facility] DEPARTMENT OF PATHOLOGY AND GENOMIC MEDICINE [address] [place] [id number] XR Chest 2 Vw (04/06/2017 5:26 PM) Specimen Performing Laboratory [facility] [address] [place] [id number] Narrative EXAM: Chest PA and lateral. INDICATION: Dyspnea. COMPARISON: Chest AP dated 10/11/2016. FINDINGS: Left chest AICD with left subclavian approach leads tip superimposed on right atrium, right ventricle, and likely coronary sinus. Surgical clips right axilla, right breast, and right upper quadrant. Major airways patent. Normal lung inflation. Lungs clear without consolidation, pleural effusion, or pneumothorax. Marked cardiomegaly. Moderate tortuosity descending thoracic aorta. Minimal gas distention stomach and loops of bowel upper abdomen. Visualized osseous and soft tissue structures are unremarkable. IMPRESSION: Unchanged since 10/11/2016 with persistent marked cardiomegaly and support devices/surgical material as detailed above. Procedure Note [facility], Radiology Results Incoming - 04/06/2017 5:32 PM CDT EXAM: Chest PA and lateral. INDICATION: Dyspnea. COMPARISON: Chest AP dated 10/11/2016. FINDINGS: Left chest AICD with left subclavian approach leads tip superimposed on right atrium, right ventricle, and likely coronary sinus. Surgical clips right axilla, right breast, and right upper quadrant. Major airways patent. Normal lung inflation. Lungs clear without consolidation , pleural effusion, or pneumothorax. Marked cardiomegaly. Moderate tortuosity descending thoracic aorta. Minimal gas distention stomach and loops of bowel upper abdomen. Visualized osseous and soft tissue structures are unremarkable. IMPRESSION: Unchanged since 10/11/2016 with persistent marked cardiomegaly and support devices/surgical material as detailed above. Creatine kinase, total (CPK) (04/06/2017 3:33 PM) Component Value Ref Range Creatine kinase 177 26 - 192 U/L Specimen Performing Laboratory Plasma specimen [facility] DEPARTMENT OF PATHOLOGY AND GENOMIC MEDICINE [address] [place] [id number] after 11/27/2016 Insurance Payer Benefit Plan / Group Subscriber ID Type Phone Address MEDICARE MEDICARE PART A AND B xxxxxxxxxx Medicare [place], [place] Home: [address] [facility] [address] [phone] [address]
[2017-11-29] MEDS ORDERED: IBUPROFEN 400 MG TAB ONE (01:45)
[2017-11-29 01:59] LABS: Urine Blood 2+ (NEG); Urine Glucose NEGATIVE (NEG); Urine Protein 1+ (NEG); Urine Specific Gravity 1.015 (1.005-1.030)
[2017-11-29] MEDS ORDERED: ONDANSETRON 4 MG/2 ML VIAL ONE (02:04)
[2017-11-29] MEDS ORDERED: MORPHINE 4 MG/ML SYR ONE (02:04)
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
[2017-11-29] MEDS ORDERED: SMZ./TMP. 800/160 MG TABLET ONE (02:49)
[2017-11-29 04:20] VITALS: BP 93/59; TEMP 98.1; O2SAT 96
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
--- NOTE | 2017-11-29 07:43 | RAD REPORT ---
EXAM DESCRIPTION: RAD - Ankle Right 3 View - 11/29/2017 1:47 am CLINICAL HISTORY: Right ankle pain status post fall FINDINGS: No fracture or dislocation is seen. The bones are osteoporotic
--- NOTE | 2017-11-29 07:44 | RAD REPORT ---
EXAM DESCRIPTION: RAD - Shoulder Right 2 View - 11/29/2017 1:48 am CLINICAL HISTORY: Right shoulder pain status post fall FINDINGS: No fracture or dislocation is seen. The bones are osteoporotic
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
--- NOTE | 2017-11-29 07:45 | RAD REPORT ---
EXAM DESCRIPTION: RAD - Femur Right - 11/29/2017 2:24 am CLINICAL HISTORY: Right leg pain FINDINGS: No fracture is seen. The bones are osteoporotic. If the patient continues to have symptoms to suggest an occult fracture t hen a CT scan would be recommended
== END 2017-11-29 04:12 | disposition home or self-care (01) ==
LOC: ER 22:03
DX: M25.511 Pain in right shoulder (principal); M25.571 Pain in right ankle and joints of right foot; N30.90 Cystitis, unspecified without hematuria; Y04.8XXA Assault by other bodily force, initial encounter; Z88.0 Allergy status to penicillin; Z88.5 Allergy status to narcotic agent; Z85.3 Personal history of malignant neoplasm of breast; Z95.0 Presence of cardiac pacemaker; Z85.828 Personal history of other malignant neoplasm of skin; I48.91 Unspecified atrial fibrillation; I25.10 Atherosclerotic heart disease of native coronary artery without angina pectoris; I50.9 Heart failure, unspecified
CPT/HCPCS: 70450; 72125; 72170; 73030; 73552; 73610; 81003; 87077 ×2; 87086; 87088; 87186 ×2; 96372; 99283; J2405

== ENCOUNTER 2018-01-14 22:22 | Emergency (ER) | payer OTHER ==
--- OUTSIDE RECORDS SUMMARY | 2018-01-14 22:24 | XMS REPORT | Clinical Summary ---
:1960 Author Organization [facility] Address [address] [place] [address] Care Team Providers Name Role Phone Asked, [...] Procedure Pass Procedural Cardiology 04/10/2017 Surgery Procedural Briantenberg, Cv right heart cath Cardiology MD Los - Please leave in triple lumen [21386 (CPT)] 04/09/2017 Anesthesia Event Procedural Mary Jimenez Cardiology AI Bush 04/09/2017 Procedure Pass Procedural Cardiology 04/09/2017 Surgery Procedural Kiley Carias Ep cardioversion Cardiology MD Francia aborted lacy performed [33767 (CPT)] 04/06/2017 - Hospital Encounter Cardiology Kymberly Contreras Chest pain, unspecified type (Primary Dx); 04/19/2017 MD Pepe Shortness of breath; Swapnil Cisneros, Leukocytosis, unspecified type; MD Juliette Acute renal failure, unspecified acute renal failure type; Prasanna Pyle Dehydration; Carli Blandon MD Lactic acidosis; Chronic heart failure, unspecified heart failure type; SOB (shortness of breath); Acute on chronic combined systolic and diastolic congestive heart failure; Anxiety; Acute mucoid otitis media of right ear; Paroxysmal atrial fibrillation after 01/13/2017 Family History Medical History Relation Name Comments [...] Health Maintenance Due Date Last Done Comments CERVICAL CANCER SCREENING 1980 BREAST CANCER SCREENING 2009 COLON CANCER SCREENING 2009 SHINGRIX VACCINE (#1) 2009 INFLUENZA VACCINE 03/20/2018 Implants Implanted Type Area Materials And Processes Manager Device Expiration Model / Identifier Date Serial / Lot Generator Grega Tamie Florez Medical Parasitologist-D - [id number] - [id number] Cardiac Pacemaker N/A : [employer] 08/19/2018 [id number] / Implanted: Qty: 1 on 10/11/2016 by Kiley Carias Jr., MD Generators N/A MEDICAL [id number] / [id number] Quartet, Lv Leads, Model 1458q-86 - [id number] - [id number] Cardiac Pacing N/A : [employer] 05/19/2019 [id number] / Implanted: Qty: 1 on 10/11/2016 by Kiley Carias Jr., MD Leads or N/A MEDICAL [id number] / Electrodes or [id number] Accessories Tendril Sts, Pacemaker Leads, Model 2088tc/52 - [id number] - [id number] Cardiac Pacing N/A: [employer] 07/19/2019 [id number]/52 / Implanted: Qty: 1 on 10/11/2016 by Kiley Carias Jr., MD Leads or N/A MEDICAL [id number] / Electrodes or [id number] Accessories Envlp Impl Crdvrtr Dfb Antbctrl Fully Resorb Lg Aigissrx R - [id number] Cardiovascular N/A: [employer] [id number] / Implanted: 10/11/2016 (Quantity not on file) Implants N/A / Procedures Procedure Name Priority Date/Time Associated Comments Diagnosis ECHOCARDIOGRAM 2D Routine 05/04/2017 5:48 Results for this COMPLETE W MMODE PM CDT procedure are in SPECTRAL COLOR DOPPLER the results (71608) section. CV DEFIBRILLATOR Routine 05/04/2017 1:42 PROGRAMMING [...] are in SPECTRAL COLOR DOPPLER the results (40344) section. after 01/13/2017 Results Potassium level (05/05/2017 5:45 AM)Only the most recent of3 resultswithin the time period is included. Component Value Ref Range Potassium SEE COMMENT 3.5 - 5.0 mEq/L Comment: Footnote--------- Unable to report result, specimen hemolyzed. Specimen Performing Laboratory Plasma specimen [facility] DEPARTMENT OF PATHOLOGY AND GENOMIC MEDICINE [address] [place] [address] Phosphorus level (05/05/2017 5:45 AM)Only the most recent of5 resultswithin the time period is included. Component Value Ref Range Phosphorus 3.0 2.4 - 4.5 mg/dL Specimen Performing Laboratory Plasma specimen [facility] DEPARTMENT OF PATHOLOGY AND GENOMIC MEDICINE [address] [place] [address] Estimated GFR (05/05/2017 3:30 AM)Only the most [...] and Americans. Specimen Performing Laboratory Plasma specimen [facility] DEPARTMENT OF PATHOLOGY AND GENOMIC MEDICINE [address] [place] [address] CBC with platelet and differential (05/05/2017 3:30 [...] (promyelocytes, myelocytes, metamyelocytes) Specimen Performing Laboratory Blood [facility] PATHOLOGY [address] [address] Magnesium level (05/05/2017 3:30 AM)Only the most recent of10 resultswithin the time period is included. Component Value Ref Range Magnesium 2.1 1.6 - 2.6 mg/dL Specimen Performing Laboratory Plasma specimen [facility] [address] [address] Ionized calcium (05/05/2017 3:30 AM)Only the most recent of4 resultswithin the time period is included. Component Value Ref Range pH 7.68 Ionized calcium 0.88 (L) 1.11 - 1.32 mmol/L Specimen Performing Laboratory Plasma specimen [facility] [address] [address] Basic metabolic panel (05/05/2017 3:30 AM)Only the [...] 10.2 mg/dL Specimen Performing Laboratory Plasma specimen [facility] DEPARTMENT PATHOLOGY AND [address] [address] Echocardiogram complete w contrast and 3D if needed (05/04/2017 5:48 PM) Specimen Performing Laboratory [facility] [address] [place] [address] Narrative Echocardiography Report [address] [place], [place] [address]Alanis [address] [place], [place] [id number] Pat.Name:Penelope MARI.ID:[id number] .Date: 05/04/2017 Refer.MD:CEM RASCON MD Exam Time: 4:54:00 PMStudy Type:Routine Echo Height:62inWeight: 126lb BSA: 1.57 m2 DOBAge:1960,56Y Sex: FEMALEBP:84/54 HR:63 bpmSonogrphr: ABRAHAM Robison Pat. Stat.:Inpatient Room:[place] [address] Study Status:Final Echo Event ID:[id number] Order ID:[id number] Reason for Study:Arrhythmias - Sustained or nonsustained [...] RAPof 10 mmHg. MEASUREMENTS: 2D Parasternal [place] Ao An1.8 cmLVPWd0.8 cm LVOT 1.7 cmLA Ds3.5 cm LVIDd7.2 cmIndex 4.6 cm/m Ao Rtd 2.5 cm Index1.6 cm/m LVIDs6.6 cmLV Jomp768.8 g(87-129) LV%fs8.4 % LVM Fiwgb431.2 g/m2 IVSd 0.6 cmRWT0.2 DOPPLER LVOT Stroke Vol LVOT 1.7 cmLVOT CO1.2 l/min LVOT TVI 8.5 cmLVOT CI0.7 l/m/m2 LVOT Tm233 rriyGP64 bpm LVOT SV 19.2 ml TV Pressure Gradient TV PkVel 316.4 cm/sTV PG 40 mmHg Signed 05/05/2017 05:52 PM Teresita Sanders M.D. Procedure Note Interface, Radiology Results In - 05/05/2017 5:52 PM CDT Echocardiography Report [address] [place] [address] Pat.Name: JALEEL MARI Pat.ID: [id number] .Date: 05/04/2017 Refer.MD: CEM RASCON MD Exam Time: 4:54:00 PM Study Type:Routine Echo Height: 62in Weight: 126lb BSA: 1.57 m2 Age: 2 1960,56Y Sex: FEMALE BP: 84/54 HR: 63 bpm Sonogrphr: ABRAHAM Robison Pat. Stat.:Inpatient Room: [place] [address] Study Status:Final Echo Event ID:[id number] Order ID: [id number] Reason for Study:Arrhythmias - Sustained or nonsustained [...] of 10 mmHg. MEASUREMENTS: 2D Parasternal [place] Ao An 1.8 cm LVPWd 0.8 cm [...] 1:42 PM) Specimen Performing Laboratory [facility] [address] [place] [address] POC glucose (05/04/2017 9:04 AM)Only the most recent of3 resultswithin the time period is included. Component Value Ref Range POC glucose 109 (H) 65 - 99 mg/dL Comment: [facility] Notified RN Meter ID: [id number] Reimbursement Director: Kailey Davis Specimen Performing Laboratory [facility] DEPARTMENT OF PATHOLOGY AND GENOMIC MEDICINE [address] [place] [address] XR Chest 1 Vw Portable (05/04/2017 2:22 AM)Only the most recent of2 resultswithin the time period is included. Specimen Performing Laboratory [facility] [address] [place] [address] Narrative EXAMINATION: XR CHEST 1 VW PORTABLE CLINICAL HISTORY: Congestive Heart Failure COMPARISON:04/10/2017.. IMPRESSION: Left AICD with stable leads. No pleural effusion or pneumothorax. The cardiac silhouette appears prominent, stable. No acute osseous abnormalities. Right axillary clips. [facility]-[id number] Procedure Note Interface, Radiology Results Incoming - 05/04/2017 2:36 AM CDT EXAMINATION: XR CHEST 1 VW PORTABLE CLINICAL HISTORY: Congestive Heart Failure COMPARISON: 04/10/2017.. IMPRESSION: Left AICD with stable leads. No pleural effusion or pneumothorax. The cardiac silhouette appears prominent, stable. No acute osseous abnormalities. Right axillary clips. [facility]-[id number] Troponin (05/04/2017 1:00 AM)Only the most recent [...] myocardial injury. Specimen Performing Laboratory Plasma specimen [facility] DEPARTMENT OF PATHOLOGY AND [facility] MEDICINE [address] [place] [address] Partial thromboplastin time, activated (05/04/2017 1:00 AM) Component Value Ref Range PTT 32.2 23.0 - 36.0 sec Comment: PTT therapeutic range for unfractionated heparin is 61.0-112.0 seconds which corresponds to Anti-Xa 0.3-0.7 U/ml. Specimen Performing Laboratory Blood [facility] DEPARTMENT OF PATHOLOGY AND [facility] MEDICINE [address] [place] [address] Prothrombin time with INR (05/04/2017 1:00 AM)Only [...] vein thrombosis/pulmonary embolism. Specimen Performing Laboratory Blood [facility] DEPARTMENT OF PATHOLOGY AND [facility] MEDICINE [address] [place] [address] B natriuretic peptide (05/04/2017 1:00 AM)Only the most recent of2 resultswithin the time period is included. Component Value Ref Range BNP 1,284 (H) 0 - 100 pg/mL Specimen Performing Laboratory Blood [facility] OF PATHOLOGY AND [address] [address] Comprehensive metabolic panel (05/04/2017 1:00 AM)Only the [...] Protein 6.9 6.3 - 8.3 g/dL Comment: Sells 4.6-7.0 g/dL 1 week 4.4-7.6 g/dL 7 months-1year5.1-7.3 g/dL 1-2 years5.6-7.5 g/dL >3 years6.0-8.0 g/dL 18-150 6.3-8.3 g/dL Albumin 3.2 (L) 3.5 - 5.0 g/dL A/G ratio 0.9 0.7 - 3.8 Alkaline phosphatase 94 35 - 104 U/L AST 38 (H) 10 - 35 U/L ALT 47 5 - 50 U/L Total bilirubin 1.2 0.0 - 1.2 mg/dL Specimen Performing Laboratory Plasma specimen [facility] DEPARTMENT OF PATHOLOGY AND GENOMIC MEDICINE [address] [place] [address] ECG 12 lead (05/04/2017 12:39 AM)Only the [...] decreased BY 20 BPM- Specimen Performing Laboratory [facility] MUSE [address] [place] [address] ECG ED Preliminary Interpretation - NOT AN ORDER (04/28/2017 6:00 PM) Flavia Contreras MD 04/28/20176:00 PM ECG ED Preliminary Interpretation - Not an Order Performed by: KYMBERLY CONTRERAS Authorized by: KYMBERLY CONTRERAS ECG reviewed by ED Physician in the absence of a framing mill operator helper: yes Interpretation: Interpretation: abnormal Rate: ECG rate:85 [...] Enlarged platelets Moderate (A) Specimen Performing Laboratory [facility] DEPARTMENT OF PATHOLOGY AND GENOMIC MEDICINE [address] [place] [address] Hepatic function panel (04/18/2017 8:35 AM) Component Value Ref Range Albumin 3.4 (L) 3.5 - 5.0 g/dL Total bilirubin 0.8 0.0 - 1.2 mg/dL Bilirubin direct 0.3 0.0 - 0.3 mg/dL Alkaline phosphatase 107 (H) 35 - 104 U/L Protein 8.0 6.3 - 8.3 g/dL Comment: Sells 4.6-7.0 g/dL 1 week 4.4-7.6 g/dL 7 months-1year5.1-7.3 g/dL 1-2 years5.6-7.5 g/dL >3 years6.0-8.0 g/dL 18-150 6.3-8.3 g/dL ALT 139 (H) 5 - 50 U/L AST 42 (H) 10 - 35 U/L Specimen Performing Laboratory Plasma specimen [facility] DEPARTMENT OF PATHOLOGY AND GENOMIC MEDICINE [address] [place] [address] Digoxin level (04/17/2017 4:00 AM)Only the most [...] back by Autumn Luis at04/17/2017 05:02 by ROBYN. Specimen Performing Laboratory Plasma specimen [facility] DEPARTMENT OF PATHOLOGY AND GENOMIC MEDICINE [address] [place] [address] Venous blood gas (04/13/2017 1:20 PM) Component Value Ref Range pH, venous 7.45 (H) 7.32 - 7.42 pCO2, venous 65 (H) 45 - 51 mmHg pO2, venous 33 25 - 40 mmHg Base excess, venous 17 (H) -2 - 2 meq/L O2 saturation, venous 62 40 - 70 % Bicarbonate, venous 44.3 (H) 21.0 - 28.0 mmol/L Specimen Performing Laboratory Blood [facility] DEPARTMENT OF PATHOLOGY AND GENOMIC MEDICINE [address] [place] [address] O2 saturation, venous (04/12/2017 11:50 AM)Only the most recent of4 resultswithin the time period is included. Component Value Ref Range Hemoglobin, venous, syringe 12.7 12.0 - 16.0 g/dL O2 saturation, venous 48 40 - 70 % Specimen Performing Laboratory Blood [facility] DEPARTMENT OF PATHOLOGY AND GENOMIC MEDICINE [address] [place] [address] US Abdomen Complete (04/11/2017 1:39 AM) [facility] [address] [place] [address] Narrative EXAM: US ABDOMEN COMPLETE CLINICAL HISTORY:ABDOMINAL [...] 2.Otherwise unremarkable sonographic evaluation of the abdomen. [facility]-[id number] Procedure Note [facility], Radiology Results Incoming - 04/11/2017 1:50 [...] Otherwise unremarkable sonographic evaluation of the abdomen. [facility]-[id number] Urinalysis screen and microscopy, with reflex to culture (04/10/2017 10:10 PM) Only the most recent of2 resultswithin the time period is included. Component Value Ref Range Specimen site Lieberman Color, UA Straw Appearance, UA Clear Specific [...] UA None seen Specimen Performing Laboratory Urine [facility] DEPARTMENT OF PATHOLOGY AND GENOMIC MEDICINE [address] [place] [address] Urine culture (04/10/2017 10:10 PM)Only the most recent of2 resultswithin the time period is included. Component Value Ref Range Urine culture SEE COMMENTComment: Bacteriuria screen negative. Specimen Performing Laboratory [facility] DEPARTMENT OF PATHOLOGY AND GENOMIC MEDICINE [address] [place] [address] Thyroid stimulating hormone (04/10/2017 7:15 PM)Only the most recent of2 resultswithin the time period is included. Component Value Ref Range TSH 2.69 0.27 - 4.20 uIU/mL Specimen Performing Laboratory Plasma specimen [facility] DEPARTMENT OF PATHOLOGY AND GENOMIC MEDICINE [address] [place] [address] T4, free (04/10/2017 7:15 PM)Only the most recent of2 resultswithin the time period is included. Component Value Ref Range T4, free 1.3 0.9 - 1.7 ng/dL Specimen Performing Laboratory Plasma specimen [facility] DEPARTMENT OF PATHOLOGY AND GENOMIC MEDICINE [address] [place] [address] Lactic acid level (04/10/2017 7:15 PM)Only the most recent of3 resultswithin the time period is included. Component Value Ref Range Lactic acid 1.4 0.5 - 2.2 mmol/L Specimen Performing Laboratory Plasma specimen [facility] DEPARTMENT OF PATHOLOGY AND [address] [address] Lipid panel (04/10/2017 7:15 PM)Only the most recent of2 resultswithin the time period is included. Component Value Ref Range Cholesterol 103 <200 mg/dL Triglycerides 98 <150 mg/dL HDL cholesterol 18 (L) >40 mg/dL LDL cholesterol 59Comment: Result obtained by direct LDL <100 mg/dL measurement Lipid panel interpretation SeeBelow Comment: Total Cholesterol (mg/dL) <200 Desirable 426-623Ffrotgsznf-bfhw >=240High Triglycerides (mg/dL) <150 Normal 315-926Bzcgnrdsdx-dgkl 200-499High >=500Very high HDL Cholesterol (mg/dL) <40Low (male) <40Low (female) LDL Cholesterol (mg/dL) <100 Optimal 100-129Near or above optimal 203-550Aqzwpezkgx-ldpj 160-189High >=190Very high Risk Catergories that modify [...] (>=200 mg/dL) Specimen Performing Laboratory Plasma specimen [facility] DEPARTMENT OF PATHOLOGY AND GENOMIC MEDICINE [address] [place] [address] Cv invasive peripheral vascular procedure (04/10/2017 5:28 PM) Specimen Performing Laboratory [facility] [address] [place] [address] Narrative Right heart filling pressure is moderately elevated. Pulmonary hypertension is moderate. Wedge pressure is moderate. Cardiac output is decreased. 1. Severely decreased CO and high filling pressures with secondary pulmonary HTN 2. Will start inotropic support and consider advanced therapies evaluation Cv phlebotomist medical lab assistant procedure (04/10/2017 5:28 PM) Specimen Performing Laboratory [facility] [address] [place] [address] Narrative Right heart filling pressure is moderately [...] Specimen Performing Laboratory Nares - Not specified [facility] DEPARTMENT OF PATHOLOGY AND GENOMIC MEDICINE [address] [place] [address] Echocardiogram transesophageal (04/09/2017 11:54 AM) Specimen Performing Laboratory [facility] [address] [place] [address] Narrative Transesophageal Echo Report [address], [place], [place] [address] Pat.Name:Penelope MARI.ID:[id number] .Date: 04/09/2017 Refer.MD:PRASANNA PYLE MD Exam Time: 10:36:00 AM Study Type:LACY Height:62inWeight: 120lb BSA: 1.54 m2 DOBAge:1960,56Y Sex: FEMALEBP:114/60 HR:80 bpmSonogrphr: Cony Knott MD Pat. Stat.:Inpatient Study Status:Final Echo Event ID:[id number] Order ID:[id number] Reason for Study:EVAL TO FACILITATE CLINICAL DECISION MAKING WITH REGARD TO ANTICOAGULATION, CARDIOVERSION, AND / OR RADIOFREQUENCY ABLATION. Procedures:Transesophageal Echo with Colorflow Doppler Race:C SUMMARY: Diagnostic of thrombus in LA appendage. Dr Carias notified. FINDINGS: LACY:The attending framing mill operator helper performed the LACY procedure and waspresent for [...] ASA Class: 4 Physician: Paras Loza MD Insole Doubler: Cony Knott MD Pre TEEBP HR Post LACY BP HR 114/60 34244/50 80 Meds:Viscous xylocaine, Cetacaine spray to oropharynx, Per Anesthesia Complications: None Condition: Stable Signed 04/09/2017 1:12:00 PM Paras Loza MD Procedure Note Interface, Radiology Results In - 04/10/2017 12:23 PM CDT Transesophageal Echo Report [address], [place], [place] [address] Pat.Name: JALEEL MARI Pat.ID: [id number] .Date: 04/09/2017 Refer.MD: PRASANNA PYLE MD Exam Time: 10:36:00 AM Study Type:LACY Height: 62in Weight: 120lb BSA: 1.54 m2 Age: 2 1960,56Y Sex: FEMALE BP: 114/60 HR: 80 bpm Sonogrphr: Cony Knott MD Pat. Stat.:Inpatient Study Status:Final Echo Event ID:[id number] Order ID: [id number] Reason for Study:EVAL TO FACILITATE CLINICAL DECISION MAKING WITH REGARD TO ANTICOAGULATION, CARDIOVERSION, AND / OR RADIOFREQUENCY ABLATION. Procedures:Transesophageal Echo with Colorflow Doppler Race: C SUMMARY: Diagnostic of thrombus in [place] appendage. Dr Carias notified. FINDINGS: LACY: The attending framing mill operator helper performed the LACY procedure and was present [...] ASA Class: 4 Physician: Paras Loza MD Insole Doubler: Cony Knott MD Pre LACY BP HR Post LACY BP HR 114/60 80 108/50 80 Meds: Viscous xylocaine, Cetacaine spray to oropharynx, Per Anesthesia Complications: None Condition: Stable Signed 04/09/2017 1:12:00 PM Paras Loza MD Cv electrophysiology procedure (04/09/2017 11:37 AM) Specimen Performing Laboratory [facility] [address] [place] [address] Narrative Cardiversion aborted due to DECLAN clot and SEC Smear review (04/09/2017 5:30 AM)Only the most recent of2 resultswithin the time period is included. Component Value Ref Range Platelet slide review Yenny adequate Anisocytosis Moderate Ovalocytes Moderate Enlarged platelets Moderate (A) Neutrophils, vacuolated Slight Specimen Performing Laboratory [facility] DEPARTMENT OF PATHOLOGY AND GENOMIC MEDICINE [address] [place] [address] CBC hemogram (04/07/2017 6:50 PM) Component Value [...] RBC 0.00 /100 WBC Specimen Performing Laboratory [facility] DEPARTMENT OF PATHOLOGY AND GENOMIC MEDICINE [address] [place] [address] Echocardiogram complete w contrast and 3D if needed (04/07/2017 8:34 AM) Specimen [place] [address] Narrative Echocardiography Report [address] [place] [address] Pat.Name:Penelope MARI.ID:[id number] .Date: 04/07/2017 Refer.MD:PRASANNA PYLE MD Exam Time: 8:03:00 AMStudy Type:Routine Echo Height:62inWeight: 125lb BSA: 1.57 m2 DOBAge:1960,56Y Sex: FEMALEBP:105/58 HR:86 bpmSonogrphr: VANDANA Morris, [facility] Pat. Stat.:[facility] Study Status:Final Echo Event ID:[id number] Order ID:[id number] Reason for Study:Chest Pains History / Clinical:Congestive [...] of 10 mmHg. MEASUREMENTS: 2D Parasternal [place] LVOT 1.7 cmLA Ds4.1 cm LVIDd5.4 cmIndex 3.5 cm/m Ao An1.8 cm LVIDs4.8 cmAo Rtd 2.6 cm Index1.7 cm/m LV%fs 11.1 % LV Eplm770.8 g(87-129) IVSd 0.8 cmLVM Index 69.3 g/m2 LVPWd0.4 cmRWT0.1 Right Ventricle RVIDd4.1 cm (2.6-4.3) LA Sng Plane LA Area 21.8 cm2(8.8-23.4) LA Vol66.6 ml Index42.4 ml/m LA LngAx 5.9 cm RA Sng Plane RA Area 16.7 cm2(8.3-19.5) RA Vol42.8 ml Index27.3 ml/m RA LngAx 5.2 cm DOPPLER LVOT Stroke Vol LVOT 1.7 cmLVOT CO1.9 l/min LVOT TVI10.6 cmLVOT CI1.2 l/m/m2 LVOT Tm215 mutoRZ47 bpm LVOT SV 24.1 ml WALL MOTION: RESTING WALL MOTION: Wall Index=2.6 Signed 04/07/2017 01:52 PM Shanel Villavicencio MD Procedure Note Interface, Radiology Results In - 04/07/2017 1:52 PM CDT Echocardiography Report [address] [place] [address] Pat.Name: JALEEL MARI Pat.ID: [id number] .Date: 04/07/2017 Refer.MD: PRASANNA PYLE MD Exam Time: 8:03:00 AM Study Type:Routine Echo Height: 62in Weight: 125lb BSA: 1.57 m2 Age: 2 1960,56Y Sex: FEMALE BP: 105/58 HR: 86 bpm Sonogrphr: VANDANA Morris, [facility] Pat. Stat.:Inpatient Room: [facility] Study Status:Final Echo Event ID:[id number] Order ID: [id number] Reason for Study:Chest Pains History / Clinical:Congestive [...] of 10 mmHg. MEASUREMENTS: 2D Parasternal [place] LVOT 1.7 cm LA Ds 4.1 cm [...] Site: See UA Specimen Performing Laboratory Urine [facility] DEPARTMENT OF PATHOLOGY AND GENOMIC MEDICINE [address] [place] [address] Blood culture, aerobic & anaerobic (04/06/2017 7:44 PM)Only the most recent of2 resultswithin the time period is included. Component Value Ref Range Blood culture isolate No growth after 5 days of incubation. Comment: Specimen Information Specimen Source: Blood Specimen Site: Foot, left Specimen Performing Laboratory Blood - Foot, left [facility] DEPARTMENT OF PATHOLOGY AND GENOMIC MEDICINE [address] [place] [address] XR Chest 2 Vw (04/06/2017 5:26 PM) Specimen Performing Laboratory [facility] [address] [place] [address] Narrative EXAM: Chest PA and lateral. INDICATION: [...] devices/surgical material as detailed above. Procedure Note Interface, Radiology Results Incoming - 04/06/2017 5:32 PM [...] 192 U/L Specimen Performing Laboratory Plasma specimen [facility] DEPARTMENT OF PATHOLOGY AND GENOMIC MEDICINE [address] [place] [address] after 01/13/2017 Insurance Payer Benefit Plan / Group Subscriber ID Type Phone Address MEDICARE MEDICARE PART A AND B xxxxxxxxxx Medicare [place], [place] Home: [phone] [address]
[2018-01-14] MEDS ORDERED: MORPHINE 4 MG/ML SYR ONE (23:09)
[2018-01-14] MEDS ORDERED: ONDANSETRON 4 MG (ODT) TAB ONE (23:09)
[2018-01-14] MEDS ORDERED: TETANUS & DIPHTHERIA TOX,ADULT 0.5 ML VIAL ONE (23:09)
--- NOTE | 2018-01-14 23:46 | EDPHYS ---
Physician Documentation [facility] Name: Lise Loera Age: 57 yrs Sex: Female : 1960 Arrival Date: 01/14/2018 Time: 22:28 Bed 7 Private MD: Andrzej Treviño S ED Physician Mo Vanessa HPI: 01/14 23:05 This 57 yrs old Female presents to ER via Wheelchair with complaints of Fall kdr Injury. 23:05 Details of fall: The patient fell from an upright position, while standing. Onset: The kdr symptoms/episode began/occurred suddenly, just prior to arrival. Associated injuries: The patient sustained Left foot and knee. Severity of symptoms: At their worst the symptoms were mild, moderate, just prior to arrival, in the emergency department the symptoms are unchanged. The patient has not experienced similar symptoms in the past. The patient has not recently seen a physician. Historical: - Allergies: 22:53 Codeine; ak1 22:53 PENICILLINS; ak1 - Home Meds: 22:53 amlodipine oral once daily [Active]; Lasix 100 mg Oral tab 1 tab once daily [Active]; ak1 Potassium Chloride Oral once daily [Active]; Xanax 2 mg Oral tab 1 tab 3 times per day [Active]; Iron CR Oral daily [Active]; - PMHx: 22:53 Anxiety; Atrial Fib; CAD; cancer - skin; Cancer, Breast; CHF; ak1 - PSHx: 22:53 pacemaker/Defibrillator; breast cancer surg with lymph on right; ak1 - Immunization history:: Adult Immunizations unknown. - Social history:: Smoking status: Patient/guardian denies using tobacco. - Ebola Screening: : No symptoms or risks identified at this time. ROS: 23:05 Constitutional: Negative for fever, chills, and weight loss, Eyes: Negative for injury, kdr pain, redness, and discharge, Neck: Negative for injury, pain, and swelling, Cardiovascular: Negative for chest pain, palpitations, and edema, Respiratory: Negative for shortness of breath, cough, wheezing, and pleuritic chest pain, Abdomen/GI: Negative for abdominal pain, nausea, vomiting, diarrhea, and constipation, Back: Negative for injury and pain, : Negative for injury, bleeding, discharge, and swelling, Neuro: Negative for headache, weakness, numbness, tingling, and seizure activity. Psych: Negative for depression, anxiety, suicide ideation, homicidal ideation, and hallucinations, Allergy/Immunology: Negative for hives, rash, and allergies, Endocrine: Negative for neck swelling, polydipsia, polyuria, polyphagia, and marked weight changes, Hematologic/Lymphatic: Negative for swollen nodes, abnormal bleeding, and unusual bruising. 23:05 MS/extremity: Positive for injury or acute deformity, abrasion, pain, swelling, tenderness, Negative for paresthesias, puncture, rash, swelling, tenderness. Exam: 23:05 Constitutional: This is a well developed, well nourished patient who is awake, alert, kdr and in no acute distress. Head/Face: Normocephalic, atraumatic. Eyes: Pupils equal round and reactive to light, extra-ocular motions intact. Lids and lashes normal. Conjunctiva and sclera are non-icteric and not injected. Cornea within normal limits. Periorbital areas with no swelling, redness, or edema. Neck: Trachea midline, no thyromegaly or masses palpated, and no cervical lymphadenopathy. Supple, full range of motion without nuchal rigidity, or vertebral point tenderness. No Meningismus. Chest/axilla: Normal chest wall appearance and motion. Nontender with no deformity. No lesions are appreciated. Cardiovascular: Regular rate and rhythm with a normal S1 and S2. No gallops, murmurs, or rubs. Normal PMI, no JVD. No pulse deficits. Respiratory: Lungs have equal breath sounds bilaterally, clear to auscultation and percussion. No rales, rhonchi or wheezes noted. No increased work of breathing, no retractions or nasal flaring. Abdomen/GI: Soft, non-tender, with normal bowel sounds. No distension or tympany. No guarding or rebound. No evidence of tenderness throughout. Back: No spinal tenderness. No costovertebral tenderness. Full range of motion. Neuro: Awake and alert, GCS 15, oriented to person, place, time, and situation. Cranial nerves II-XII grossly intact. Motor strength 5/5 in all extremities. Sensory grossly intact. Cerebellar exam normal. Normal gait. Psych: Awake, alert, with orientation to person, place and time. Behavior, mood, and affect are within normal limits. 23:05 Skin: injury, abrasion(s), moderate sized abrasion noted, of the left knee. Vital Signs: 22:53 BP 102 / 75; Pulse 61; Resp 18; Pulse Ox 94% on R/A; Weight 58.06 kg; Height 5 ft. 2 rv in. (157.48 cm); 22:53 BP 102 / 75; Pulse 71; Resp 18; Temp 97.7(O); Pulse Ox 96% on R/A; Weight 58.06 kg (R); ak1 Height 5 ft. 2 in. (157.48 cm) (R); Pain 10/10; 23:49 BP 102 / 75; Pulse 84; Resp 17; rv 22:53 Body Mass Index 23.41 (58.06 kg, 157.48 cm) ak1 MDM: 23:05 Data reviewed: vital signs, nurses notes, radiologic studies. Counseling: I had a kdr detailed discussion with the patient and/or guardian regarding: the historical points, exam findings, and any diagnostic results supporting the discharge/admit diagnosis, radiology results, the need for outpatient follow up. 23:45 Patient medically screened. [facility] 01/14 23:05 Order name: Foot Left 3 View XRAY [facility] 01/14 23:05 Order name: Knee Left 3 View XRAY [facility] 01/14 23:48 Order name: Misc. Order: Clean and dress wounds on knee [facility] 01/14 23:48 Order name: Bran wrap-joint: Left knee [facility] 01/15 00:13 Order name: Crutches [facility] Administered Medications: 23:21 Not Given (Patient Refused): Tetanus-Diphtheria Toxoid Adult 0.5 ml IM once mg2 23:21 Drug: morphine 4 mg Route: IM; Site: right gluteus; mg2 23:33 Follow up: Response: No adverse reaction; Pain is decreased rv 23:21 Drug: Zofran 4 mg Route: PO; mg2 23:33 Follow up: Response: No adverse reaction rv Disposition: 01/14/18 23:45 Discharged to Home. Impression: Other sprain of left foot, Unspecified sprain of left foot, Abrasion, left knee, Pain in left knee. - Condition is Stable. - Discharge Instructions: Foot Sprain, Musculoskeletal Pain, Abrasion, [id number], Knee Pain, [id number]. - Medication Reconciliation Form, Thank You Letter form. - Follow up: Andrzej Treviño MD; When: 2 - 3 days; Reason: If symptoms return, Further diagnostic work-up, Recheck today's complaints, Continuance of care, Re-evaluation by your physician. - Problem is new. - Symptoms have improved. Signatures: Dispatcher [employer] EDMS Mo Vanessa MD MD [facility] Lisseth Morales RN RN ak1 Malvin Shepherd RN RN mg2 Js Tyson RN RN rv Corrections: (The following items were deleted from the chart) 01/15 00:24 01/14 23:45 01/14/2018 23:45 Discharged to Home. Impression: Other sprain of left foot; rv Unspecified sprain of left foot; Abrasion, left knee; Pain in left knee. Condition is Stable. Forms are Medication Reconciliation Form, Thank You Letter, Antibiotic Education, Prescription Opioid Use. Follow up: Andrzej Treviño; When: 2 - 3 days; Reason: If symptoms return, Further diagnostic work-up, Recheck today's complaints, Continuance of care, Re-evaluation by your physician. Problem is new. Symptoms have improved. kdr
--- NOTE | 2018-01-14 23:46 | ER ---
Nurse's Notes [facility] Name: Lise Loera Age: 57 yrs Sex: Female : 1960 Arrival Date: 01/14/2018 Time: 22:28 Bed 7 Private MD: Andrzej Treviño S Diagnosis: Other sprain of left foot;Unspecified sprain of left foot;Abrasion, left knee;Pain in left knee Presentation: 01/14 22:50 Presenting complaint: Patient states: left knee pain s/p fall on cement. pt with ak1 abrasions to bilateral knees. pt c/o pain to 2nd toe on left foot. Transition of care: patient was not received from another setting of care. Onset of symptoms was January 14, 2018. Risk Assessment: Do you want to hurt yourself or someone else? Patient reports no desire to harm self or others. Initial Sepsis Screen: Does the patient meet any 2 criteria? No. Patient's initial sepsis screen is negative. Does the patient have a suspected source of infection? No. Patient's initial sepsis screen is negative. Care prior to arrival: None. 22:50 Method Of Arrival: Wheelchair ak1 22:50 Acuity: ESTRELLITA 4 ak1 Historical: - Allergies: 22:53 Codeine; ak1 22:53 PENICILLINS; ak1 - Home Meds: 22:53 amlodipine oral once daily [Active]; Lasix 100 mg Oral tab 1 tab once daily [Active]; ak1 Potassium Chloride Oral once daily [Active]; Xanax 2 mg Oral tab 1 tab 3 times per day [Active]; Iron CR Oral daily [Active]; - PMHx: 22:53 Anxiety; Atrial Fib; CAD; cancer - skin; Cancer, Breast; CHF; ak1 - PSHx: 22:53 pacemaker/Defibrillator; breast cancer surg with lymph on right; ak1 - Immunization history:: Adult Immunizations unknown. - Social history:: Smoking status: Patient/guardian denies using tobacco. - Ebola Screening: : No symptoms or risks identified at this time. Screenin:54 Abuse screen: Denies threats or abuse. Denies injuries from another. Nutritional ak1 screening: No deficits noted. Tuberculosis screening: No symptoms or risk factors identified. Fall Risk None identified. Assessment: 22:48 General: Appears in no apparent distress. comfortable, Behavior is calm, cooperative, rv appropriate for age. Pain: Complains of pain in left second toe and Left second toenail. Neuro: Level of Consciousness is awake, alert, obeys commands, Oriented to person, place, time, situation. Cardiovascular: Rhythm is regular. Respiratory: Airway is patent. GI: No signs and/or symptoms were reported involving the gastrointestinal system. : No signs and/or symptoms were reported regarding the genitourinary system. EENT: No signs and/or symptoms were reported regarding the EENT system. Injury Description: Abrasion sustained to left knee. Vital Signs: 22:53 BP 102 / 75; Pulse 61; Resp 18; Pulse Ox 94% on R/A; Weight 58.06 kg; Height 5 ft. 2 rv in. (157.48 cm); 22:53 BP 102 / 75; Pulse 71; Resp 18; Temp 97.7(O); Pulse Ox 96% on R/A; Weight 58.06 kg (R); ak1 Height 5 ft. 2 in. (157.48 cm) (R); Pain 10/10; 23:49 BP 102 / 75; Pulse 84; Resp 17; rv 22:53 Body Mass Index 23.41 (58.06 kg, 157.48 cm) ak1 ED Course: 22:28 Patient arrived in ED. es 22:28 Andrzej Treviño MD is Private Physician. es 22:42 Malvin Shepherd, DAMASO is Primary Nurse. mg2 22:52 Triage completed. ak1 22:53 Arm band placed on Patient placed in an exam room, on a stretcher, on pulse oximetry, ak1 Patient notified of wait time. 22:55 Patient has correct armband on for positive identification. Bed in low position. Call ak1 light in reach. Side rails up X 1. Adult w/ patient. Pulse ox on. NIBP on. 22:56 Mo Vanessa MD is Attending Physician. kdr 23:34 Wound care: to abrasion, located on right leg and left knee was cleaned with Hibiclens. rv 23:35 X-ray completed. Portable x-ray completed in exam room. Patient tolerated procedure kw well. 23:35 Foot Left 3 View XRAY In Process Unspecified. EDMS 23:35 Knee Left 3 View XRAY In Process Unspecified. EDMS 23:44 Andrzej Treviño MD is Referral Physician. kdr 23:48 No provider procedures requiring assistance completed. Patient did not have IV access mg2 during this emergency room visit. Administered Medications: 23:21 Not Given (Patient Refused): Tetanus-Diphtheria Toxoid Adult 0.5 ml IM once mg2 23:21 Drug: morphine 4 mg Route: IM; Site: right gluteus; mg2 23:33 Follow up: Response: No adverse reaction; Pain is decreased rv 23:21 Drug: Zofran 4 mg Route: PO; mg2 23:33 Follow up: Response: No adverse reaction rv Outcome: 23:45 Discharge ordered by MD. kdr 23:49 Discharged to home ambulatory. rv 23:49 Condition: stable 23:49 Discharge instructions given to patient. 01/15 00:24 Patient left the ED. rv Signatures: Dispatcher [employer] EDAZ Mo Vanessa MD MD kdr Salyer, Edna es Whitley, Kimberlee kw Krenek, Amber, RN RN ak1 Malvin Shepherd RN RN mg2 Js Tyson RN RN rv
[2018-01-15 00:44] VITALS: BP 102/75; TEMP 97.7; O2SAT 96
--- NOTE | 2018-01-15 08:28 | RAD REPORT ---
EXAM DESCRIPTION: RAD - Knee Left 3 View - 01/14/2018 11:40 pm CLINICAL HISTORY: Left knee pain status post injury FINDINGS: No fracture or dislocation is seen. If the patient continues have symptoms to suggest an occult fracture, ligamentous or meniscal injury then MRI be recommended
--- NOTE | 2018-01-15 08:35 | RAD REPORT ---
EXAM DESCRIPTION: RAD - Foot Left 3 View - 01/14/2018 11:41 pm CLINICAL HISTORY: Left Foot pain status post fall FINDINGS: No fracture or dislocation is seen. The bones are osteoporotic
== END 2018-01-15 00:24 | disposition home or self-care (01) ==
LOC: ER 22:22
DX: S93.692A Other sprain of left foot, initial encounter (principal); S80.212A Abrasion, left knee, initial encounter; W19.XXXA Unspecified fall, initial encounter; Y93.9 Activity, unspecified; Y92.9 Unspecified place or not applicable; Z88.0 Allergy status to penicillin; Z85.3 Personal history of malignant neoplasm of breast; Z88.5 Allergy status to narcotic agent; Z85.828 Personal history of other malignant neoplasm of skin; Z95.810 Presence of automatic (implantable) cardiac defibrillator; I48.91 Unspecified atrial fibrillation; F41.9 Anxiety disorder, unspecified; I50.9 Heart failure, unspecified
CPT/HCPCS: 90714; 96372; 99284

== ENCOUNTER 2018-03-13 15:19 | Emergency (ER) | payer OTHER ==
--- OUTSIDE RECORDS SUMMARY | 2018-03-13 15:22 | XMS REPORT | Clinical Summary ---
:1960 Author Organization [facility] Address [address] [place] [address] Care Team Providers Name Role Phone Asked, [...] Los - Please leave in triple lumen [36953 (CPT)] 04/09/2017 Anesthesia Event Procedural Mary Jimenez Cardiology AI [place] 04/09/2017 Procedure Pass Procedural Cardiology 04/09/2017 Surgery Procedural Kiley Carias Ep cardioversion Cardiology MD Francia aborted lacy performed [51108 (CPT)] 04/06/2017 - Hospital Encounter Cardiology Kymberly [...] of right ear; Paroxysmal atrial fibrillation after 03/12/2017 Family History Medical History Relation Name Comments [...] INFLUENZA VACCINE 03/20/2018 Implants Implanted Type 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 08/19/2018 [id number] / Implanted: Qty: 1 on 10/11/2016 by Kiley Carias Jr., MD Generators N/A MEDICAL [id number] Quartet, Lv Leads, Model 1458q-86 - [id number] - [id number] Cardiac Pacing N/A : [employer] 05/19/2019 [id number] / Implanted: Qty: 1 on 10/11/2016 by Kiley Carias Jr., MD Leads or N/A MEDICAL [id number] / Electrodes or [id number] Accessories Tendril Sts, Pacemaker Leads, Model [id number]/52 - [id number] - [id number] Cardiac Pacing N/A: [employer] 07/19/2019 [id number] / Implanted: Qty: 1 on 10/11/2016 by Kiley Carias Jr., MD Leads or N/A MEDICAL [id number] / Electrodes or [id number] Accessories Envlp Impl Crdvrtr Dfb Antbctrl Fully Resorb Lg Aigissrx R - [id number] Cardiovascular N/A: [employer] [id number] / Implanted: 10/11/2016 (Quantity not on file) Implants N/A / Procedures Procedure Name Priority Date/Time Associated Comments Diagnosis PHOSPHORUS LEVEL Routine 05/05/2017 5:45 Results for this AM CDT procedure are in the results section. POTASSIUM LEVEL Routine 05/05/2017 5:45 Results for this AM CDT procedure are in the results section. ESTIMATED GFR Routine 05/05/2017 3:30 Results for this AM CDT procedure are in the results section. IONIZED CALCIUM Routine 05/05/2017 3:30 Results for this AM CDT procedure are in the results section. PHOSPHORUS LEVEL Routine 05/05/2017 3:30 Results for this AM CDT procedure are in the results section. MAGNESIUM LEVEL Routine 05/05/2017 3:30 Results for this AM CDT procedure are in the results section. BASIC METABOLIC PANEL Routine 05/05/2017 3:30 Results for this AM CDT procedure are in the results section. HC COMPLETE BLD COUNT Routine 05/05/2017 3:30 Results for this W/AUTO DIFF AM CDT procedure are in the results section. POTASSIUM LEVEL Timed 05/04/2017 6:00 Results for this PM CDT procedure are in the results section. ECHOCARDIOGRAM 2D Routine 05/04/2017 5:48 Results for this COMPLETE W MMODE PM CDT procedure are in SPECTRAL COLOR DOPPLER the results (63887) section. CV DEFIBRILLATOR Routine 05/04/2017 1:42 PROGRAMMING ML PM CDT POTASSIUM LEVEL Routine 05/04/2017 9:39 Results for this AM CDT procedure are in the results section. POC GLUCOSE Routine 05/04/2017 9:04 Results for this AM CDT procedure are in the results section. POC GLUCOSE Routine 05/04/2017 5:00 Results for this AM CDT procedure are in the results section. XR CHEST 1 VW PORTABLE STAT 05/04/2017 2:22 Results for this AM CDT procedure are in the results section. POC GLUCOSE Routine 05/04/2017 1:01 Results for this AM CDT procedure are in the results section. B NATRIURETIC PEPTIDE Routine 05/04/2017 1:00 Results for this AM CDT procedure are in the results section. TROPONIN Routine 05/04/2017 1:00 Results for this AM CDT procedure are in the results section. MAGNESIUM LEVEL Routine 05/04/2017 1:00 Results for this AM CDT procedure are in the results section. ESTIMATED GFR Routine 05/04/2017 1:00 Results for this AM CDT procedure are in the results section. PARTIAL THROMBOPLASTIN Routine 05/04/2017 1:00 Results for this TIME (PTT) AM CDT procedure are in the results section. PROTHROMBIN TIME WITH Routine 05/04/2017 1:00 Results for this INR AM CDT procedure are in the results section. COMPREHENSIVE METABOLIC Routine 05/04/2017 1:00 Results for this PANEL AM CDT procedure are in the results section. HC COMPLETE BLD COUNT Routine 05/04/2017 1:00 Results for this W/AUTO DIFF AM CDT procedure are in the results section. ECG 12-LEAD Routine 05/04/2017 12:39 Results for this AM CDT procedure are in the results section. ECG ED PRELIMINARY Routine 04/28/2017 6:00 Results for this INTERPRETATION PM CDT procedure are in the results section. MANUAL DIFFERENTIAL Routine 04/19/2017 4:05 Results for this AM CDT procedure are in the results section. CBC WITH PLATELET AND Routine 04/19/2017 4:05 Results for this DIFFERENTIAL AM CDT procedure are in the results section. ESTIMATED GFR Routine 04/19/2017 4:00 Results for this AM CDT procedure are in the results section. MAGNESIUM LEVEL Routine 04/19/2017 4:00 Results for this AM CDT procedure are in the results section. COMPREHENSIVE METABOLIC Routine 04/19/2017 4:00 Results for this PANEL AM CDT procedure are in the results section. MANUAL DIFFERENTIAL STAT 04/18/2017 8:35 Results for this AM CDT procedure are in the results section. ESTIMATED GFR STAT 04/18/2017 8:35 Results for this AM CDT procedure are in the results section. HEPATIC FUNCTION PANEL STAT 04/18/2017 8:35 Results for this AM CDT procedure are in the results section. CBC WITH PLATELET AND STAT 04/18/2017 8:35 Results for this DIFFERENTIAL AM CDT procedure are in the results section. BASIC METABOLIC PANEL STAT 04/18/2017 8:35 Results for this AM CDT procedure are in the results section. HC COMPLETE BLD COUNT Routine 04/17/2017 4:15 Results for this W/AUTO DIFF AM CDT procedure are in the results section. ESTIMATED GFR Routine 04/17/2017 4:00 Results for this AM CDT procedure are in the results section. DIGOXIN LEVEL Routine 04/17/2017 4:00 Results for this AM CDT procedure are in the results section. BASIC METABOLIC PANEL Routine 04/17/2017 4:00 Results for this AM CDT procedure are in the results section. MAGNESIUM LEVEL Routine 04/17/2017 4:00 Results for this AM CDT procedure are in the results section. ESTIMATED GFR Routine 04/16/2017 8:39 Results for this AM CDT procedure are in the results section. BASIC METABOLIC PANEL Routine 04/16/2017 8:39 Results for this AM CDT procedure are in the results section. MAGNESIUM LEVEL Routine 04/16/2017 4:00 Results for this AM CDT procedure are in the results section. MANUAL DIFFERENTIAL Routine 04/16/2017 3:25 Results for this AM CDT procedure are in the results section. CBC WITH PLATELET AND Routine 04/16/2017 3:25 Results for this DIFFERENTIAL AM CDT procedure are in the results section. ESTIMATED GFR Routine 04/15/2017 4:00 Results for this AM CDT procedure are in the results section. HC COMPLETE BLD COUNT Routine 04/15/2017 4:00 Results for this W/AUTO DIFF AM CDT procedure are in the results section. COMPREHENSIVE METABOLIC Routine 04/15/2017 4:00 Results for this PANEL AM CDT procedure are in the results section. MAGNESIUM LEVEL Routine 04/15/2017 4:00 Results for this AM CDT procedure are in the results section. PHOSPHORUS LEVEL Routine 04/14/2017 4:00 Results for this AM CDT procedure are in the results section. ESTIMATED GFR Timed 04/13/2017 4:00 Results for this PM CDT procedure are in the results section. BASIC METABOLIC PANEL Timed 04/13/2017 4:00 Results for this PM CDT procedure are in the results section. VENOUS BLOOD GAS Routine 04/13/2017 1:20 Results for this PM CDT procedure are in the results section. ESTIMATED GFR Routine 04/13/2017 11:07 Results for this AM CDT procedure are in the results section. COMPREHENSIVE METABOLIC Routine 04/13/2017 11:07 Results for this PANEL AM CDT procedure are in the results section. ESTIMATED GFR Routine 04/13/2017 6:48 Results for this AM CDT procedure are in the results section. MAGNESIUM LEVEL Routine 04/13/2017 6:48 Results for this AM CDT procedure are in the results section. PHOSPHORUS LEVEL Routine 04/13/2017 6:48 Results for this AM CDT procedure are in the results section. BASIC METABOLIC PANEL Routine 04/13/2017 6:48 Results for this AM CDT procedure are in the results section. HC COMPLETE BLD COUNT Routine 04/13/2017 6:48 Results for this W/AUTO DIFF AM CDT procedure are in the results section. O2 SATURATION, VENOUS Routine 04/12/2017 11:50 Results for this AM CDT procedure are in the results section. PHOSPHORUS LEVEL Routine 04/12/2017 3:52 Results for this AM CDT procedure are in the results section. ESTIMATED GFR Routine 04/12/2017 3:52 Results for this AM CDT procedure are in the results section. MAGNESIUM LEVEL Routine 04/12/2017 3:52 Results for this AM CDT procedure are in the results section. IONIZED CALCIUM Routine 04/12/2017 3:52 Results for this AM CDT procedure are in the results section. HC COMPLETE BLD COUNT Routine 04/12/2017 3:52 Results for this W/AUTO DIFF AM CDT procedure are in the results section. COMPREHENSIVE METABOLIC Routine 04/12/2017 3:52 Results for this PANEL AM CDT procedure are in the results section. ESTIMATED GFR Routine 04/11/2017 5:00 Results for this AM CDT procedure are in the results section. O2 SATURATION, VENOUS Routine 04/11/2017 5:00 Results for this AM CDT procedure are in the results section. MAGNESIUM LEVEL Routine 04/11/2017 5:00 Results for this AM CDT procedure are in the results section. IONIZED CALCIUM Routine 04/11/2017 5:00 Results for this AM CDT procedure are in the results section. HC COMPLETE BLD COUNT Routine 04/11/2017 5:00 Results for this W/AUTO DIFF AM CDT procedure are in the results section. COMPREHENSIVE METABOLIC Routine 04/11/2017 5:00 Results for this PANEL AM CDT procedure are in the results section. US ABDOMEN COMPLETE STAT 04/11/2017 1:39 Results for this AM CDT procedure are in the results section. O2 SATURATION, VENOUS Routine 04/10/2017 11:55 Results for this PM CDT procedure are in the results section. URINALYSIS SCREEN AND Routine 04/10/2017 10:10 Results for this MICROSCOPY, WITH REFLEX PM CDT procedure are in TO CULTURE the results section. URINE CULTURE Routine 04/10/2017 10:10 Results for this PM CDT procedure are in the results section. XR CHEST 1 VW PORTABLE STAT 04/10/2017 7:54 Results for this PM CDT procedure are in the results section. ESTIMATED GFR Routine 04/10/2017 7:15 Results for this PM CDT procedure are in the results section. O2 SATURATION, VENOUS Routine 04/10/2017 7:15 Results for this PM CDT procedure are in the results section. MAGNESIUM LEVEL Routine 04/10/2017 7:15 Results for this PM CDT procedure are in the results section. PROTHROMBIN TIME WITH Routine 04/10/2017 7:15 Results for this INR PM CDT procedure are in the results section. HC COMPLETE BLD COUNT Routine 04/10/2017 7:15 Results for this W/AUTO DIFF PM CDT procedure are in the results section. IONIZED CALCIUM Routine 04/10/2017 7:15 Results for this PM CDT procedure are in the results section. T4, FREE Routine 04/10/2017 7:15 Results for this PM CDT procedure are in the results section. THYROID STIMULATING Routine 04/10/2017 7:15 Results for this HORMONE PM CDT procedure are in the results section. COMPREHENSIVE METABOLIC Routine 04/10/2017 7:15 Results for this PANEL PM CDT procedure are in the results section. LACTIC ACID LEVEL Routine 04/10/2017 7:15 Results for this PM CDT procedure are in the results section. LIPID PANEL Routine 04/10/2017 7:15 Results for this PM CDT procedure are in the results section. ECG 12-LEAD Routine 04/10/2017 6:38 Results for this PM CDT procedure are in the results section. CV NON TUNNELED CATHETER Routine 04/10/2017 5:28 Results for this INSERTION PM CDT procedure are in the results section. CV RIGHT HEART CATH Routine 04/10/2017 5:28 Results for this PM CDT procedure are in the results section. RESPIRATORY PATHOGEN Routine 04/09/2017 3:18 Results for this PANEL PM CDT procedure are in the results section. ECHOCARDIOGRAM Routine 04/09/2017 11:54 Results for this TRANSESOPHAGEAL AM CDT procedure are in the results section. EP CARDIOVERSION ABORTED Routine 04/09/2017 11:37 Results for this LACY PERFORMED AM CDT procedure are in the results section. SMEAR REVIEW Routine 04/09/2017 5:30 Results for this AM CDT procedure are in the results section. HC COMPLETE BLD COUNT Routine 04/09/2017 5:30 Results for this W/AUTO DIFF AM CDT procedure are in the results section. ESTIMATED GFR Routine 04/09/2017 4:00 Results for this AM CDT procedure are in the results section. BASIC METABOLIC PANEL Routine 04/09/2017 4:00 Results for this AM CDT procedure are in the results section. MANUAL DIFFERENTIAL Routine 04/08/2017 12:12 Results for this PM CDT procedure are in the results section. ESTIMATED GFR Routine 04/08/2017 12:12 Results for this PM CDT procedure are in the results section. BASIC METABOLIC PANEL Routine 04/08/2017 12:12 Results for this PM CDT procedure are in the results section. CBC WITH PLATELET AND Routine 04/08/2017 12:12 Results for this DIFFERENTIAL PM CDT procedure are in the results section. SMEAR REVIEW Routine 04/07/2017 6:50 Results for this PM CDT procedure are in the results section. CBC HEMOGRAM Routine 04/07/2017 6:50 Results for this PM CDT procedure are in the results section. ECHOCARDIOGRAM 2D Routine 04/07/2017 8:34 Results for this COMPLETE W MMODE AM CDT procedure are in SPECTRAL COLOR DOPPLER the results (38178) section. TROPONIN Routine 04/07/2017 4:00 Results for this AM CDT procedure are in the results section. DIGOXIN LEVEL Routine 04/07/2017 4:00 Results for this AM CDT procedure are in the results section. ESTIMATED GFR Routine 04/07/2017 4:00 Results for this AM CDT procedure are in the results section. T4, FREE Routine 04/07/2017 4:00 Results for this AM CDT procedure are in the results section. THYROID STIMULATING Routine 04/07/2017 4:00 Results for this HORMONE AM CDT procedure are in the results section. LIPID PANEL Routine 04/07/2017 4:00 Results for this AM CDT procedure are in the results section. BASIC METABOLIC PANEL Routine 04/07/2017 4:00 Results for this AM CDT procedure are in the results section. URINALYSIS SCREEN AND Routine 04/07/2017 1:20 Results for this MICROSCOPY, WITH REFLEX AM CDT procedure are in TO CULTURE the results section. GRAM STAIN Routine 04/07/2017 1:05 Results for this AM CDT procedure are in the results section. URINE CULTURE Routine 04/07/2017 1:05 Results for this AM CDT procedure are in the results section. LACTIC ACID LEVEL Timed 04/06/2017 11:53 Results for this PM CDT procedure are in the results section. ECG 12-LEAD STAT 04/06/2017 11:02 Results for this PM CDT procedure are in the results section. LACTIC ACID LEVEL Timed 04/06/2017 7:44 Results for this PM CDT procedure are in the results section. BLOOD CULTURE, AEROBIC & Routine 04/06/2017 7:44 Results for this ANAEROBIC PM CDT procedure are in the results section. BLOOD CULTURE, AEROBIC & Routine 04/06/2017 7:14 Results for this ANAEROBIC PM CDT procedure are in the results section. XR CHEST 2 VW STAT 04/06/2017 5:26 Results for this PM CDT procedure are in the results section. ESTIMATED GFR STAT 04/06/2017 3:33 Results for this PM CDT procedure are in the results section. B NATRIURETIC PEPTIDE STAT 04/06/2017 3:33 Results for this PM CDT procedure are in the results section. TROPONIN STAT 04/06/2017 3:33 Results for this PM CDT procedure are in the results section. CREATINE KINASE, TOTAL STAT 04/06/2017 3:33 Results for this (CPK) PM CDT procedure are in the results section. COMPREHENSIVE METABOLIC STAT 04/06/2017 3:33 Results for this PANEL PM CDT procedure are in the results section. PROTHROMBIN TIME WITH STAT 04/06/2017 3:33 Results for this INR PM CDT procedure are in the results section. HC COMPLETE BLD COUNT STAT 04/06/2017 3:33 Results for this W/AUTO DIFF PM CDT procedure are in the results section. ECG 12-LEAD STAT 04/06/2017 1:48 Results for this PM CDT procedure are in the results section. after 03/12/2017 Results Potassium level (05/05/2017 5:45 AM)Only the most recent of3 resultswithin the time period is included. Potassium SEE COMMENT 3.5 - 5.0 mEq/L [facility] DEPARTMENT OF PATHOLOGY Comment: AND GENOMIC MEDICINE Footnote--------- Unable to report result, specimen hemolyzed. Specimen Plasma specimen Performing Organization Address City/[facility] Phone Number [facility] DEPARTMENT OF PATHOLOGY AND [address] [place] [address] Phosphorus level (05/05/2017 5:45 AM)Only the most recent of5 resultswithin the time period is included. Phosphorus 3.0 2.4 - 4.5 mg/dL [facility] DEPARTMENT OF PATHOLOGY AND GENOMIC MEDICINE Specimen Plasma specimen Performing Organization Address City/[facility]ode Phone Number [facility] DEPARTMENT OF PATHOLOGY AND [address] [place] [address] Estimated GFR (05/05/2017 3:30 AM)Only the most recent of17 resultswithin the time period is included. GFR Non Af Amer 29 (A) mL/min/1.[address] [facility] DEPARTMENT OF PATHOLOGY AND GENOMIC MEDICINE GFR Af Amer 35 (A) mL/min/1.[address] [facility] DEPARTMENT OF Comment: PATHOLOGY AND GENOMIC Chronic kidney disease: <60 mL/min/1.73m2 MEDICINE Kidney failure: <15 mL/min/1.73m2 The estimated GFR is calculated from the IDMS-traceable Modification of Diet in Renal Disease Equation. The accuracy of the calculation is poor when the creatinine is normal. Calculated values >90 mL/min/1.73m2 are not reported. This equation has not been validated in children (<18 years), women, the elderly (>70 years), or ethnic groups other than Caucasians and Americans. Specimen Plasma specimen Performing Organization Address City/[facility]/Zipcode Phone Number [facility] DEPARTMENT PATHOLOGY AND [address] [place] [address] [facility] CBC with platelet and differential (05/05/2017 3:30 AM)Only the most recent of14 resultswithin the time period is included. WBC 7.10 4.50 - 11.00 k/uL [facility] DEPARTMENT OF PATHOLOGY AND GENOMIC MEDICINE RBC 3.32 (L) 4.20 - 5.50 m/uL [facility] DEPARTMENT OF PATHOLOGY AND GENOMIC MEDICINE HGB 9.6 (L) 12.0 - 16.0 g/dL [facility] DEPARTMENT OF PATHOLOGY AND GENOMIC MEDICINE HCT 31.2 (L) 37.0 - 47.0 % [facility] DEPARTMENT OF PATHOLOGY AND GENOMIC MEDICINE MCV 94.0 82.0 - 100.[address] [facility] DEPARTMENT OF PATHOLOGY AND GENOMIC MEDICINE MCH 28.9 27.0 - 34.[address] [facility] DEPARTMENT OF PATHOLOGY AND GENOMIC MEDICINE MCHC 30.8 (L) 31.0 - 37.0 g/dL [facility] DEPARTMENT OF PATHOLOGY AND GENOMIC MEDICINE RDW - SD 50.4 37.0 - 55.[address] [facility] DEPARTMENT OF PATHOLOGY AND GENOMIC MEDICINE MPV 12.0 8.8 - 13.[address] [facility] DEPARTMENT OF PATHOLOGY AND GENOMIC MEDICINE Platelet count 210 150 - 400 k/uL [facility] DEPARTMENT OF PATHOLOGY AND GENOMIC MEDICINE Nucleated RBC 0.60 /[address] [facility] DEPARTMENT OF PATHOLOGY AND GENOMIC MEDICINE Neutrophils 62.2 39.0 - 69.0 % [facility] DEPARTMENT OF PATHOLOGY AND GENOMIC MEDICINE Lymphocytes 17.7 (L) 25.0 - 45.0 % [facility] DEPARTMENT OF PATHOLOGY AND GENOMIC MEDICINE Monocytes 13.8 (H) 0.0 - 10.0 % [facility] DEPARTMENT OF PATHOLOGY AND GENOMIC MEDICINE Eosinophils 4.9 0.0 - 5.0 % [facility] DEPARTMENT OF PATHOLOGY AND GENOMIC MEDICINE Basophils 0.8 0.0 - 1.0 % [facility] DEPARTMENT OF PATHOLOGY AND GENOMIC MEDICINE Immature granulocytes 0.6Comment: 0.0 - 1.0 % [facility] DEPARTMENT OF "Immature PATHOLOGY AND GENOMIC granulocytes" MEDICINE (promyelocytes, myelocytes, metamyelocytes) Specimen Blood Performing Organization Address City/[facility]/Zipcode Phone Number [facility] DEPARTMENT OF PATHOLOGY AND [address] Magnesium level (05/05/2017 3:30 AM)Only the most recent of10 resultswithin the time period is included. Magnesium 2.1 1.6 - 2.6 mg/dL [facility] DEPARTMENT OF PATHOLOGY AND GENOMIC MEDICINE Specimen Plasma specimen Performing Organization Address City/[facility]out Phone Number [facility] DEPARTMENT OF PATHOLOGY AND [address] [place] [address] Ionized calcium (05/05/2017 3:30 AM)Only the most recent of4 resultswithin the time period is included. pH 7.68 [facility] DEPARTMENT OF PATHOLOGY AND GENOMIC MEDICINE Ionized calcium 0.88 (L) 1.11 - 1.32 mmol/L [facility] DEPARTMENT OF PATHOLOGY AND GENOMIC MEDICINE Specimen Plasma specimen Performing Organization Address [facility] Phone Number [facility] DEPARTMENT OF PATHOLOGY AND [address] [place] [address] Basic metabolic panel (05/05/2017 3:30 AM)Only the most recent of9 resultswithin the time period is included. Sodium 136 135 - 148 mEq/L [facility] DEPARTMENT OF PATHOLOGY AND GENOMIC MEDICINE Potassium Footnote 3.5 - 5.0 mEq/L [facility] DEPARTMENT OF PATHOLOGY AND GENOMIC MEDICINE Chloride 95 (L) 98 - 112 mEq/L [facility] DEPARTMENT OF PATHOLOGY AND GENOMIC MEDICINE CO2 28 24 - 31 mEq/L [facility] DEPARTMENT OF PATHOLOGY AND GENOMIC MEDICINE Anion gap 13 7 - 15 mEq/L [facility] DEPARTMENT OF PATHOLOGY Comment: [facility] Starting from November , anion gap calculation no longer incorporates potassium. Please note the change. BUN 25 (H) 6 - 20 mg/dL [facility] DEPARTMENT OF PATHOLOGY AND GENOMIC MEDICINE Creatinine 1.8 (H) 0.5 - 0.9 mg/dL [facility] DEPARTMENT OF PATHOLOGY AND GENOMIC MEDICINE Glucose 102 (H) 65 - 99 mg/dL [facility] DEPARTMENT OF PATHOLOGY AND GENOMIC MEDICINE Calcium 8.2 (L) 8.3 - 10.2 mg/dL [facility] DEPARTMENT OF PATHOLOGY AND GENOMIC MEDICINE Specimen Plasma specimen Performing Organization Address [facility] Phone Number [facility] DEPARTMENT OF PATHOLOGY AND [address] [place] [address] Echocardiogram complete w contrast and 3D if needed (05/04/2017 5:48 PM) Narrative Performed At [facility] Echocardiography Report [id number] [address] Pat.Name:Penelope MARI.ID:[id number] .Date: 05/04/2017 Refer.MD:CEM RASCON MD Exam Time: 4:54:00 PMStudy Type:Routine Echo Height:62inWeight: 126lb BSA: 1.57 m2 DOBAge:1960,56Y Sex: FEMALEBP:84/54 HR:63 bpmSonogrphr: ABRAHAM Robison Pat. Stat.:Inpatient Room:[place] [address] Study Status:Final Echo Event ID:[id number] Order ID:[id number] Reason for Study:Arrhythmias - Sustained or nonsustained [...] RAPof 10 mmHg. MEASUREMENTS: 2D Parasternal [place] Ao An1.8 cmLVPWd0.8 cm LVOT 1.7 cmLA Ds3.5 cm LVIDd7.2 cmIndex4.6 cm/m Ao Rtd 2.5 cm Index1.6 cm/m LVIDs6.6 cmLV Zhwc974.8 g(87-129) LV%fs8.4 % LVM Rxtus301.2 g/m2 IVSd 0.6 cmRWT0.2 DOPPLER LVOT Stroke Vol LVOT 1.7 cmLVOT CO1.2 l/min LVOT TVI 8.5 cmLVOT CI0.7 l/m/m2 LVOT Tm233 tgjmNZ65 bpm LVOT SV 19.2 ml TV Pressure Gradient TV PkVel 316.4 cm/sTV PG 40 mmHg Signed 05/05/2017 05:52 PM Teresita Sanders M.D. Procedure Note Interface, Radiology Results In - 05/05/2017 5:52 PM [facility] Echocardiography Report [address] [place] [address] Pat.Name: JALEEL MARI Pat.ID: [id number] .Date: 05/04/2017 Refer.MD: CEM RASCON MD Exam Time: 4:54:00 PM Study Type:Routine Echo Height: 62in Weight: 126lb BSA: 1.57 m2 Age: 2 1960,56Y Sex: FEMALE BP: 84/54 HR: 63 bpm Sonogrphr: ABRAHAM Robison Pat. Stat.:Inpatient Room: [place] [address] Study Status:Final Echo Event ID:[id number] Order ID: [id number] Reason for Study:Arrhythmias - Sustained or nonsustained [...] of 10 mmHg. MEASUREMENTS: 2D Parasternal [place] Ao An 1.8 cm LVPWd 0.8 cm [...] Signed 05/05/2017 05:52 PM Teresita Sanders M.D. Performing Organization Address [facility]ode Phone Number [facility] [address] [place] [address] CV pacemaker defib or ilr interrogation (05/04/2017 1:42 PM) Narrative Performed At Performing Organization Address [facility] Center/[facility] Phone Number C[facility] [address] [place] [address] POC glucose (05/04/2017 9:04 AM)Only the most recent of3 resultswithin the time period is included. POC glucose 109 (H) 65 - 99 mg/dL [facility] DEPARTMENT OF PATHOLOGY AND Comment: GENOMIC MEDICINE [facility] Notified RN Meter ID: [id number] Raw Juice Weigher: Kailey Davis Performing Organization Address [facility] CenterInvoy Technologiesut Phone Number [facility] DEPARTMENT OF PATHOLOGY AND [address] [place] [phone] GENOMIC MEDICINE XR Chest 1 Vw Portable (05/04/2017 2:22 AM)Only the most recent of2 resultswithin the time period is included. Narrative Performed At EXAMINATION: XR CHEST 1 VW PORTABLE [facility]IANT CLINICAL HISTORY: Congestive Heart Failure COMPARISON:04/10/2017.. IMPRESSION: Left AICD with stable leads. No pleural effusion or pneumothorax. The cardiac silhouette appears prominent, stable. No acute osseous abnormalities. Right axillary clips. [facility]-[id number] Procedure Note Interface, Radiology Results Incoming - 05/04/2017 2:36 AM CDT EXAMINATION: XR CHEST 1 VW PORTABLE CLINICAL HISTORY: Congestive Heart Failure COMPARISON: 04/10/2017.. IMPRESSION: Left AICD with stable leads. No pleural effusion or pneumothorax. The cardiac silhouette appears prominent, stable. No acute osseous abnormalities. Right axillary clips. [facility]-[id number] Performing Organization Address [facility]/Zipcode Phone Number [facility] [address] [place] [phone] Troponin (05/04/2017 1:00 AM)Only the most recent of3 resultswithin the time period is included. Troponin <0.30 0.00 - 0.30 ng/mL [facility] DEPARTMENT OF PATHOLOGY Comment: AND [facility] 0.30 - 1.49 ng/mlMay indicate increased risk of acute coronary syndrome. >=1.5 ng/mlConsistent with acute myocardial infarction. The diagnostic value of a single normal or non-diagnostic result is questionable.Serial samples at 2-6 hour intervals are required to rule out acute myocardial injury. Specimen Plasma specimen Performing Organization Address [facility] Centercode Phone Number [facility] DEPARTMENT OF PATHOLOGY AND [address] [place] [address] Partial thromboplastin time, activated (05/04/2017 1:00 AM) PTT 32.2 23.0 - 36.[address] [facility] DEPARTMENT OF PATHOLOGY Comment: AND [facility] PTT therapeutic range for unfractionated heparin is 61.0-112.0 seconds which corresponds to Anti-Xa 0.3-0.7 U/ml. Specimen Blood Performing Organization Address [facility] Phone Number [facility] DEPARTMENT OF PATHOLOGY AND [address] [place] [address] Prothrombin time with INR (05/04/2017 1:00 AM)Only the most recent of3 resultswithin the time period is included. Prothrombin time 17.8 (H) 12.0 - 15.[address] [facility] DEPARTMENT OF PATHOLOGY AND [facility] INR 1.4 [facility] DEPARTMENT OF Comment: PATHOLOGY AND GENOMIC The International Normalized Ratio (INR) is a therapeutic MEDICINE monitoring tool for patients who are stable on oral anticoagulant therapy. An INR of 2.0-3.0 is suggested for deep vein thrombosis/pulmonary embolism. Specimen Blood Performing Organization Address [facility] Centercode Phone Number [facility] DEPARTMENT OF PATHOLOGY AND [address] [place] [address] B natriuretic peptide (05/04/2017 1:00 AM)Only the most recent of2 resultswithin the time period is included. BNP 1,284 (H) 0 - 100 pg/mL [facility] DEPARTMENT OF PATHOLOGY AND GENOMIC MEDICINE Specimen Blood Performing Organization Address City/[facility]/Zipcode Phone Number [facility] DEPARTMENT OF PATHOLOGY [place] [address] [place] [address] GENOMIC MEDICINE Comprehensive metabolic panel (05/04/2017 1:00 AM)Only the most recent of8 resultswithin the time period is included. Sodium 145 135 - 148 mEq/L [facility] DEPARTMENT OF PATHOLOGY AND GENOMIC MEDICINE Potassium 3.6 3.5 - 5.0 mEq/L [facility] DEPARTMENT OF PATHOLOGY AND GENOMIC MEDICINE Chloride 97 (L) 98 - 112 mEq/L [facility] DEPARTMENT OF PATHOLOGY AND GENOMIC MEDICINE CO2 30 24 - 31 mEq/L [facility] DEPARTMENT OF PATHOLOGY AND GENOMIC MEDICINE Anion gap 18 (H) 7 - 15 mEq/L [facility] DEPARTMENT OF Comment: PATHOLOGY AND GENOMIC Starting from November , anion gap calculation MEDICINE no longer incorporates potassium. Please note the change. BUN 27 (H) 6 - 20 mg/dL [facility] DEPARTMENT OF PATHOLOGY AND GENOMIC MEDICINE Creatinine 1.9 (H) 0.5 - 0.9 mg/dL [facility] DEPARTMENT OF PATHOLOGY AND GENOMIC MEDICINE Glucose 104 (H) 65 - 99 mg/dL [facility] DEPARTMENT OF PATHOLOGY AND GENOMIC MEDICINE Calcium 8.5 8.3 - 10.2 mg/dL [facility] DEPARTMENT OF PATHOLOGY AND GENOMIC MEDICINE Protein 6.9 6.3 - 8.3 g/dL [facility] DEPARTMENT OF Comment: PATHOLOGY AND GENOMIC [place] 4.6-7.0 g/dL MEDICINE 1 week 4.4-7.6 g/dL 7 months-1year5.1-7.3 g/dL 1-2 years5.6-7.5 g/dL >3 years6.0-8.0 g/dL 18-150 6.3-8.3 g/dL Albumin 3.2 (L) 3.5 - 5.0 g/dL [facility] DEPARTMENT OF PATHOLOGY AND GENOMIC MEDICINE A/G ratio 0.9 0.7 - 3.8 [facility] DEPARTMENT OF PATHOLOGY AND GENOMIC MEDICINE Alkaline phosphatase 94 35 - 104 U/L [facility] DEPARTMENT OF PATHOLOGY AND GENOMIC MEDICINE AST 38 (H) 10 - 35 U/L [facility] DEPARTMENT OF PATHOLOGY AND GENOMIC MEDICINE ALT 47 5 - 50 U/L [facility] DEPARTMENT OF PATHOLOGY AND GENOMIC MEDICINE Total bilirubin 1.2 0.0 - 1.2 mg/dL [facility] DEPARTMENT OF PATHOLOGY AND GENOMIC MEDICINE Specimen Plasma specimen Performing Organization Address City/State/Zipcode Phone Number [facility] DEPARTMENT OF PATHOLOGY AND [address] [place] [address] GENOMIC MEDICINE ECG 12 lead (05/04/2017 12:39 AM)Only the most recent of4 resultswithin the time period is included. Ventricular rate 60 [facility] Atrial rate 58 [facility] QRSD interval 168 [facility] QT interval 590 [facility] QTC interval [address] [facility] QRS axis [address] [facility] T wave axis 251 [facility] EKG impression AV dual-paced rhythm-Abnormal ECG-In [facility] automated comparison with ECG of 10-APR-2017 18:38,-Vent. rate has decreased BY 20 BPM- Performing Organization Address City/[facility] Centercode Phone Number [facility] [address] [place] [address] ECG ED Preliminary Interpretation - NOT AN ORDER (04/28/2017 6:00 PM) Narrative Performed At Kymberly Contreras MD 04/28/20176:00 PM ECG ED Preliminary Interpretation - Not an Order Performed by: KYMBERLY CONTRERAS Authorized by: KYMBERLY CONTRERAS ECG reviewed by ED Physician in the absence of a package reinspector: yes Interpretation: Interpretation: abnormal Rate: ECG rate:85 ECG rate assessment: normal Rhythm: Rhythm comment:Paced v QRS: QRS axis:Left QRS intervals:Wide ST segments: ST segments:Normal Manual differential (04/19/2017 4:05 AM)Only the most recent of4 resultswithin the time period is included. Manual differential PERFORMED [facility] DEPARTMENT OF PATHOLOGY AND GENOMIC MEDICINE Neutrophils 77.0 (H) 39.0 - 69.0 % [facility] DEPARTMENT OF PATHOLOGY AND GENOMIC MEDICINE Lymphocytes 12.0 (L) 25.0 - 45.0 % [facility] DEPARTMENT OF PATHOLOGY AND GENOMIC MEDICINE Monocytes 6.0 0.0 - 10.0 % [facility] DEPARTMENT OF PATHOLOGY AND GENOMIC MEDICINE Eosinophils 4.0 0.0 - 5.0 % [facility] DEPARTMENT OF PATHOLOGY AND GENOMIC MEDICINE Basophils 1.0 0.0 - 1.0 % [facility] DEPARTMENT OF PATHOLOGY AND GENOMIC MEDICINE Metamyelocytes 0 % [facility] DEPARTMENT OF PATHOLOGY AND GENOMIC MEDICINE Promyelocytes 0 % [facility] DEPARTMENT OF PATHOLOGY AND GENOMIC MEDICINE Platelet slide review Yenny adequate [facility] DEPARTMENT OF PATHOLOGY AND GENOMIC MEDICINE Enlarged platelets Moderate (A) [facility] DEPARTMENT OF PATHOLOGY AND GENOMIC MEDICINE Performing Organization Address City/[facility] Centercode Phone Number [facility] DEPARTMENT OF PATHOLOGY AND [address] [place] [phone] [facility] Hepatic function panel (04/18/2017 8:35 AM) Albumin 3.4 (L) 3.5 - 5.0 g/dL [facility] DEPARTMENT OF PATHOLOGY AND GENOMIC MEDICINE Total bilirubin 0.8 0.0 - 1.2 mg/dL [facility] DEPARTMENT OF PATHOLOGY AND GENOMIC MEDICINE Bilirubin direct 0.3 0.0 - 0.3 mg/dL [facility] DEPARTMENT OF PATHOLOGY AND GENOMIC MEDICINE Alkaline phosphatase 107 (H) 35 - 104 U/L [facility] DEPARTMENT OF PATHOLOGY AND GENOMIC MEDICINE Protein 8.0 6.3 - 8.3 g/dL [facility] DEPARTMENT OF Comment: PATHOLOGY AND GENOMIC 4.6-7.0 g/dL MEDICINE 1 week 4.4-7.6 g/dL 7 months-1year5.1-7.3 g/dL 1-2 years5.6-7.5 g/dL >3 years6.0-8.0 g/dL 18-150 6.3-8.3 g/dL ALT 139 (H) 5 - 50 U/L [facility] DEPARTMENT OF PATHOLOGY AND GENOMIC MEDICINE AST 42 (H) 10 - 35 U/L [facility] DEPARTMENT OF PATHOLOGY AND GENOMIC MEDICINE Specimen Plasma specimen Performing Organization Address [facility] Centercode Phone Number [facility] DEPARTMENT OF PATHOLOGY AND [address] [place] [phone] [facility] Digoxin level (04/17/2017 4:00 AM)Only the most recent of2 resultswithin the time period is included. Digoxin 4.3 (HH) 0.8 - 2.0 ng/mL [facility] DEPARTMENT OF PATHOLOGY Comment: AND [facility] For valid Digoxin results, at least 6 hours should elapse between time of last dose and collection of blood. Otherwise, result may be false high. Therapeutic Range: 0.8 - 2.0 ng/mL DIG results called to and read back by Autumn Luis at04/17/2017 05:02 by ROBYN. Specimen Plasma specimen Performing Organization Address City/[facility] Centercode Phone Number [facility] DEPARTMENT OF PATHOLOGY AND [address] [place] [phone] [facility] Venous blood gas (04/13/2017 1:20 PM) pH, venous 7.45 (H) 7.32 - 7.42 [facility] DEPARTMENT OF PATHOLOGY AND GENOMIC MEDICINE pCO2, venous 65 (H) 45 - [address] [facility] DEPARTMENT OF PATHOLOGY AND GENOMIC MEDICINE pO2, venous 33 25 - [address] [facility] DEPARTMENT OF PATHOLOGY AND GENOMIC MEDICINE Base excess, venous 17 (H) -2 - 2 meq/L [facility] DEPARTMENT OF PATHOLOGY AND GENOMIC MEDICINE O2 saturation, venous 62 40 - 70 % [facility] DEPARTMENT OF PATHOLOGY AND GENOMIC MEDICINE Bicarbonate, venous 44.3 (H) 21.0 - 28.0 mmol/L [facility] DEPARTMENT OF PATHOLOGY AND GENOMIC MEDICINE Specimen Blood Performing Organization Address City/[facility]/Zipcode Phone Number [facility] PATHOLOGY AND [address] [place] [address] O2 saturation, venous (04/12/2017 11:50 AM)Only the most recent of4 resultswithin the time period is included. Hemoglobin, venous, syringe 12.7 12.0 - 16.0 g/dL [facility] DEPARTMENT OF PATHOLOGY AND GENOMIC MEDICINE O2 saturation, venous 48 40 - 70 % [facility] OF PATHOLOGY AND GENOMIC MEDICINE Specimen Blood Performing Organization Address City/[facility]/Zipcode Phone Number [facility] AND [address] [place] [address] US Abdomen Complete (04/11/2017 1:39 AM) Narrative Performed At EXAM: US ABDOMEN COMPLETE RADIANT CLINICAL HISTORY:ABDOMINAL PAIN, Abdominal examination was abnormal [...] 2.Otherwise unremarkable sonographic evaluation of the abdomen. [facility]-[id number] Procedure Note [facility], Radiology Results Incoming - 04/11/2017 1:50 [...] Otherwise unremarkable sonographic evaluation of the abdomen. [facility]-[id number] Performing Organization Address City/State/Zipcode Phone Number [facility] [address] [place] [address] Urinalysis screen and microscopy, with reflex to culture (04/10/2017 10:10 PM) Only the most recent of2 resultswithin the time period is included. Specimen site Lieberman [facility] DEPARTMENT OF PATHOLOGY AND GENOMIC MEDICINE Color, UA Straw [facility] DEPARTMENT OF PATHOLOGY AND GENOMIC MEDICINE Appearance, UA Clear [facility] DEPARTMENT OF PATHOLOGY AND GENOMIC MEDICINE Specific gravity, UA 1.006 1.001 - 1.035 [facility] DEPARTMENT OF PATHOLOGY AND GENOMIC MEDICINE pH, UA 5.0 5.0 - 8.5 [facility] DEPARTMENT OF PATHOLOGY AND GENOMIC MEDICINE Protein, UA Negative Negative [facility] DEPARTMENT OF PATHOLOGY AND GENOMIC MEDICINE Glucose, UA Negative Negative [facility] DEPARTMENT OF PATHOLOGY AND GENOMIC MEDICINE Ketones, UA Negative Negative [facility] DEPARTMENT OF PATHOLOGY AND GENOMIC MEDICINE Bilirubin, UA Negative Negative [facility] DEPARTMENT OF PATHOLOGY AND GENOMIC MEDICINE Blood, UA Small (A) Negative [facility] DEPARTMENT OF PATHOLOGY AND GENOMIC MEDICINE Nitrite, UA Negative Negative [facility] DEPARTMENT OF PATHOLOGY AND GENOMIC MEDICINE Urobilinogen, UA <2.[address]0 [facility] DEPARTMENT OF PATHOLOGY AND GENOMIC MEDICINE Leukocyte esterase, UA Negative Negative [facility] DEPARTMENT OF PATHOLOGY AND GENOMIC MEDICINE Epithelial cells, UA <1 /HPF [facility] DEPARTMENT OF PATHOLOGY AND GENOMIC MEDICINE WBC, UA 3 0 - 4 /HPF [facility] DEPARTMENT OF PATHOLOGY AND GENOMIC MEDICINE RBC, UA <1 0 - 2 /HPF [facility] DEPARTMENT OF PATHOLOGY AND GENOMIC MEDICINE Bacteria, UA Few None seen [facility] DEPARTMENT OF PATHOLOGY AND GENOMIC MEDICINE Yeast, UA None seen [facility] DEPARTMENT OF PATHOLOGY AND GENOMIC MEDICINE Yeast with pseudohyphae, UA None seen [facility] DEPARTMENT OF PATHOLOGY AND GENOMIC MEDICINE Specimen Urine Performing Organization Address City/[facility] Centercode Phone Number [facility] DEPARTMENT OF PATHOLOGY AND [address] [place] [address] Urine culture (04/10/2017 10:10 PM)Only the most recent of2 resultswithin the time period is included. Urine culture SEE COMMENTComment: Bacteriuria [facility] DEPARTMENT OF PATHOLOGY screen negative. AND GENOMIC MEDICINE Performing Organization Address [facility] Phone Number [facility] DEPARTMENT OF PATHOLOGY AND [address] [place] [address] Thyroid stimulating hormone (04/10/2017 7:15 PM)Only the most recent of2 resultswithin the time period is included. TSH 2.69 0.27 - 4.20 uIU/mL [facility] DEPARTMENT OF PATHOLOGY AND GENOMIC MEDICINE Specimen Plasma specimen Performing Organization Address City/[facility] Centercode Phone Number [facility] DEPARTMENT OF PATHOLOGY AND [address] [place] [address] T4, free (04/10/2017 7:15 PM)Only the most recent of2 resultswithin the time period is included. T4, free 1.3 0.9 - 1.7 ng/dL [facility] DEPARTMENT OF PATHOLOGY AND GENOMIC MEDICINE Specimen Plasma specimen Performing Organization Address [facility] Centercode Phone Number [facility] DEPARTMENT OF PATHOLOGY AND [address] [place] [address] Lactic acid level (04/10/2017 7:15 PM)Only the most recent of3 resultswithin the time period is included. Lactic acid 1.4 0.5 - 2.2 mmol/L [facility] DEPARTMENT OF PATHOLOGY AND GENOMIC MEDICINE Specimen Plasma specimen Performing Organization Address City/State/Zipcode Phone Number [facility] DEPARTMENT OF PATHOLOGY AND [address] [place] [address] [facility] Lipid panel (04/10/2017 7:15 PM)Only the most recent of2 resultswithin the time period is included. Cholesterol 103 <200 mg/dL [facility] DEPARTMENT OF PATHOLOGY AND GENOMIC MEDICINE Triglycerides 98 <150 mg/dL [facility] DEPARTMENT OF PATHOLOGY AND GENOMIC MEDICINE HDL cholesterol 18 (L) >40 mg/dL [facility] DEPARTMENT OF PATHOLOGY AND GENOMIC MEDICINE LDL cholesterol 59Comment: Result <100 mg/dL [facility] DEPARTMENT obtained by direct LDL PATHOLOGY AND GENOMIC measurement MEDICINE Lipid panel interpretation SeeBelow [facility] DEPARTMENT OF Comment: PATHOLOGY AND GENOMIC Total Cholesterol (mg/dL) MEDICINE <200 Desirable [phone]-eonr >=240High Triglycerides (mg/dL) <150 Normal [id number]-ovnh 200-499High >=500Very high HDL Cholesterol (mg/dL) <40Low (male) <40Low (female) LDL Cholesterol (mg/dL) <100 Optimal 100-129Near or above optimal [phone]-fhuc 160-189High >=190Very high Risk Catergories that modify [...] persons with high triglycerides (>=200 mg/dL) Specimen Plasma specimen Performing Organization Address City/State/Zipcode Phone Number [facility] DEPARTMENT OF PATHOLOGY AND [address] [place] [address] [facility] MEDICINE Cv invasive peripheral vascular procedure (04/10/2017 5:28 PM) Narrative Performed At [facility] Right heart filling pressure is moderately elevated. Pulmonary hypertension is moderate. Wedge pressure is moderate. Cardiac output is decreased. 1. Severely decreased CO and high filling pressures with secondary pulmonary HTN 2. Will start inotropic support and consider advanced therapies evaluation Performing Organization Address [facility] Centercout Phone Number [facility] [address] [place] [address] Cv cardiac catheterization technologist procedure (04/10/2017 5:28 PM) Narrative Performed At [facility] Right heart filling pressure is moderately elevated. Pulmonary hypertension is moderate. Wedge pressure is moderate. Cardiac output is decreased. 1. Severely decreased CO and high filling pressures with secondary pulmonary HTN 2. Will start inotropic support and consider advanced therapies evaluation Performing Organization Address [facility] Phone Number [facility] [address] [place] [phone] Respiratory pathogen panel (04/09/2017 3:18 PM) Respiratory pathogen Negative for all pathogens tested: [facility] DEPARTMENT OF panel Negative for Adenovirus PATHOLOGY AND GENOMIC Negative for Coronavirus HKU1 MEDICINE Negative for Coronavirus NL63 Negative for Coronavirus [...] Source: Nares Specimen Site: Not specified Specimen Nares - Not specified Performing Organization Address [facility] Centercout Phone Number [facility] DEPARTMENT OF PATHOLOGY AND [address] [place] [phone] Audit Verify Echocardiogram transesophageal (04/09/2017 11:54 AM) Narrative Performed At [facility] Transesophageal Echo Report [id number], [place] [id number] Pat.Name:Penelope MARI.ID:[id number] .Date: 04/09/2017 Refer.MD:PRASANNA PYLE MD Exam Time: 10:36:00 AM Study Type:LACY Height:62inWeight: 120lb BSA: 1.54 m2 DOBAge:1960,56Y Sex: FEMALEBP:114/60 HR:80 bpmSonogrphr: Cony Knott MD Pat. Stat.:Inpatient Study Status:Final Echo Event ID:[id number] Order ID:[id number] Reason for Study:EVAL TO FACILITATE CLINICAL DECISION MAKING WITH REGARD TO ANTICOAGULATION, CARDIOVERSION, AND / OR RADIOFREQUENCY ABLATION. Procedures:Transesophageal Echo with Colorflow Doppler Race:C SUMMARY: Diagnostic of thrombus in [place] appendage. Dr Carias notified. FINDINGS: LACY:The attending package reinspector performed the LACY procedure and waspresent for [...] ASA Class: 4 Physician: Paras Loza MD Crew Lead: Cony Knott MD Pre TEEBP HR Post LACY BP HR 114/60 33259/50 80 Meds:Viscous xylocaine, Cetacaine spray to oropharynx, Per Anesthesia Complications: None Condition: Stable Signed 04/09/2017 1:12:00 PM Paras Loza MD Procedure Note Interface, Radiology Results In - 04/10/2017 12:23 PM CDT Transesophageal Echo Report [id number], [place], [place] [address] Pat.Name: JALEEL MARI Pat.ID: [id number] .Date: 04/09/2017 Refer.MD: PRASANNA PYLE MD Exam Time: 10:36:00 AM Study Type:LACY Height: 62in Weight: 120lb BSA: 1.54 m2 Age: 2 1960,56Y Sex: FEMALE BP: 114/60 HR: 80 bpm Sonogrphr: Cony Knott MD Pat. Stat.:Inpatient Study Status:Final Echo Event ID:[id number] Order ID: [id number] Reason for Study:EVAL TO FACILITATE CLINICAL DECISION MAKING WITH REGARD TO ANTICOAGULATION, CARDIOVERSION, AND / OR RADIOFREQUENCY ABLATION. Procedures:Transesophageal Echo with Colorflow Doppler Race: C SUMMARY: Diagnostic of thrombus in [place] appendage. Dr Carias notified. FINDINGS: LACY: The attending package reinspector performed the LACY procedure and was present [...] ASA Class: 4 Physician: Paras Loza MD Crew Lead: Cony Knott MD Pre LACY BP HR Post LACY BP HR 114/60 80 108/50 80 Meds: Viscous xylocaine, Cetacaine spray to oropharynx, Per Anesthesia Complications: None Condition: Stable Signed 04/09/2017 1:12:00 PM Paras Loza MD Performing Organization Address City/State/Zipcode Phone Number [facility] [address] [place] [address] Cv electrophysiology procedure (04/09/2017 11:37 AM) Narrative Performed At [facility] aborted due to DECLAN clot and SEC [facility] Performing Organization Address City/State/Zipcode Phone Number [facility] [address] [place] [address] Smear review (04/09/2017 5:30 AM)Only the most recent of2 resultswithin the time period is included. Platelet slide review Yenny adequate [facility] DEPARTMENT OF PATHOLOGY AND GENOMIC MEDICINE Anisocytosis Moderate [facility] DEPARTMENT OF PATHOLOGY AND GENOMIC MEDICINE Ovalocytes Moderate [facility] DEPARTMENT OF PATHOLOGY AND GENOMIC MEDICINE Enlarged platelets Moderate (A) [facility] DEPARTMENT OF PATHOLOGY AND GENOMIC MEDICINE Neutrophils, vacuolated Slight [facility] DEPARTMENT OF PATHOLOGY AND GENOMIC MEDICINE Performing Organization Address City/[facility] Centercout Phone Number [facility] DEPARTMENT OF PATHOLOGY AND [address] [place] [address] [facility] CBC hemogram (04/07/2017 6:50 PM) WBC 8.62 4.50 - 11.00 k/uL [facility] DEPARTMENT OF PATHOLOGY AND GENOMIC MEDICINE RBC 4.22 4.20 - 5.50 m/uL [facility] DEPARTMENT OF PATHOLOGY AND GENOMIC MEDICINE HGB 12.5 12.0 - 16.0 g/dL [facility] DEPARTMENT OF PATHOLOGY AND GENOMIC MEDICINE HCT 38.5 37.0 - 47.0 % [facility] DEPARTMENT OF PATHOLOGY AND GENOMIC MEDICINE MCV 91.2 82.0 - 100.[address] [facility] DEPARTMENT OF PATHOLOGY AND GENOMIC MEDICINE MCH 29.6 27.0 - 34.[address] [facility] DEPARTMENT OF PATHOLOGY AND GENOMIC MEDICINE MCHC 32.5 31.0 - 37.0 g/dL [facility] DEPARTMENT OF PATHOLOGY AND GENOMIC MEDICINE RDW - SD 46.9 37.0 - 55.[address] [facility] DEPARTMENT OF PATHOLOGY AND GENOMIC MEDICINE MPV 11.7 8.8 - 13.[address] [facility] DEPARTMENT OF PATHOLOGY AND GENOMIC MEDICINE Platelet count 126 (L) 150 - 400 k/uL [facility] DEPARTMENT OF PATHOLOGY AND GENOMIC MEDICINE Nucleated RBC 0.00 /[address] [facility] DEPARTMENT OF PATHOLOGY AND GENOMIC MEDICINE Performing Organization Address City/[facility] Centercode Phone Number [facility] DEPARTMENT PATHOLOGY AND [address] [place] [address] [employer] MEDICINE Echocardiogram complete w contrast and 3D if needed (04/07/2017 8:34 AM) Narrative Performed At [facility] Echocardiography Report [address] [address], [place] [address] Pat.Name:Penelope MARI.ID:[id number] .Date: 04/07/2017 Refer.MD:PRASANNA PYLE MD Exam Time: 8:03:00 AMStudy Type:Routine Echo Height:62inWeight: 125lb BSA: 1.57 m2 DOBAge:1960,56Y Sex: FEMALEBP:105/58 HR:86 bpmSonogrphr: VANDANA Morris, [facility] Pat. Stat.:Inpatient Room:[facility] Study Status:Final Echo Event ID:[id number] Order ID:[id number] Reason for Study:Chest Pains History / Clinical:Congestive [...] of 10 mmHg. MEASUREMENTS: 2D Parasternal Long [place] LVOT 1.7 cmLA Ds4.1 cm LVIDd5.4 cmIndex3.5 cm/m Ao An1.8 cm LVIDs4.8 cmAo Rtd 2.6 cm Index1.7 cm/m LV%fs 11.1 % LV Mgsv249.8 g(87-129) IVSd 0.8 cmLVM Index 69.3 g/m2 LVPWd0.4 cmRWT0.1 Right Ventricle RVIDd4.1 cm (2.6-4.3) LA Sng Plane LA Area 21.8 cm2(8.8-23.4) LA Vol66.6 ml Index42.4 ml/m LA LngAx 5.9 cm RA Sng Plane RA Area 16.7 cm2(8.3-19.5) RA Vol42.8 ml Index27.3 ml/m RA LngAx 5.2 cm DOPPLER LVOT Stroke Vol LVOT 1.7 cmLVOT CO1.9 l/min LVOT TVI10.6 cmLVOT CI1.2 l/m/m2 LVOT Tm215 rovyGT75 bpm LVOT SV 24.1 ml WALL MOTION: RESTING WALL MOTION: Wall Index=2.6 Signed 04/07/2017 01:52 PM Shanel Villavicencio MD Procedure Note Interface, Radiology Results In - 04/07/2017 1:52 PM CDT Echocardiography Report [address] [place] [address] Pat.Name: JALEEL MARI Pat.ID: [id number] .Date: 04/07/2017 Refer.MD: PRASANNA PYLE MD Exam Time: 8:03:00 AM Study Type:Routine Echo Height: 62in Weight: 125lb BSA: 1.57 m2 Age: 2 1960,56Y Sex: FEMALE BP: 105/58 HR: 86 bpm Sonogrphr: VANDANA Morris, R[facility] Pat. Stat.:Inpatient Room: 809 Study Status:Final Echo Event ID:[id number] Order ID: [id number] Reason for Study:Chest Pains History / Clinical:Congestive [...] of 10 mmHg. MEASUREMENTS: 2D Parasternal Long [place] LVOT 1.7 cm LA Ds 4.1 cm [...] Signed 04/07/2017 01:52 PM Shanel Villavicencio MD Performing Organization Address [facility] Phone Number [facility] [address] [place] [address] Gram stain (04/07/2017 1:05 AM) Gram stain result No WBC's or organisms seen. [facility] DEPARTMENT OF PATHOLOGY Comment: AND GENOMIC MEDICINE Specimen Information Specimen Source: Urine Specimen Site: See UA Specimen Urine Performing Organization Address [facility] Phone Number [facility] DEPARTMENT OF PATHOLOGY AND [address] [place] [address] [employer] Blood culture, aerobic & anaerobic (04/06/2017 7:44 PM)Only the most recent of2 resultswithin the time period is included. Blood culture isolate No growth after [address] [facility] DEPARTMENT OF Comment: PATHOLOGY AND GENOMIC Specimen Information MEDICINE Specimen Source: Blood Specimen Site: Foot, left Specimen Blood - Foot, left Performing Organization Address [facility] Phone Number [facility] DEPARTMENT OF PATHOLOGY AND [address] [place] [address] [employer] [facility] XR Chest 2 Vw (04/06/2017 5:26 PM) Narrative Performed At EXAM: [facility] Chest PA and lateral. INDICATION: Dyspnea. COMPARISON: [...] and support devices/surgical material as detailed above. Performing Organization Address [facility]/Zipcode Phone Number [facility] [address] [place] [address] Creatine kinase, total (CPK) (04/06/2017 3:33 PM) Creatine kinase 177 26 - 192 U/L [facility] DEPARTMENT OF PATHOLOGY AND GENOMIC MEDICINE Specimen Plasma specimen Performing Organization Address City/State/Zipcode Phone Number [facility] DEPARTMENT OF PATHOLOGY AND [address] [place] [address] GENOMIC MEDICINE after 03/12/2017 Insurance Payer Benefit Plan / Group Subscriber ID Type Phone Address MEDICARE MEDICARE PART A AND B xxxxxxxxxx Medicare [place], [place] Home: [address] [facility] [address] [phone] [place] [id number]
[2018-03-13 16:13] LABS: Urine Blood TRACE (NEG); Urine Glucose NEGATIVE (NEG); Urine Protein NEGATIVE (NEG); Urine Specific Gravity 1.015 (1.005-1.030)
--- NOTE | 2018-03-13 18:02 | ER ---
Nurse's Notes [facility] Name: Lise Loera Age: 57 yrs Sex: Female : 1960 Arrival Date: 03/13/2018 Time: 15:24 Bed 28 Private MD: Andrzej Treviño S Diagnosis: Concern for sexually transmitted infection Presentation: 03/13 15:26 Presenting complaint: Patient states: wants to get tested for STD and HIV. Pt had sex sv with a man that had sex with a man. Transition of care: patient was not received from another setting of care. Onset of symptoms is unknown. Care prior to arrival: None. 15:26 Method Of Arrival: Ambulatory sv 15:26 Acuity: ESTRELLITA 4 sv 17:26 Risk Assessment: Do you want to hurt yourself or someone else? Patient reports no fc desire to harm self or others. Initial Sepsis Screen: Does the patient meet any 2 criteria? No. Patient's initial sepsis screen is negative. Does the patient have a suspected source of infection? No. Patient's initial sepsis screen is negative. Triage Assessment: 15:26 General: Appears in no apparent distress. uncomfortable, Behavior is cooperative, sv anxious. Pain: Denies pain. Neuro: Level of Consciousness is awake, alert, obeys commands, Oriented to person, place, time, situation, Moves all extremities. Full function Gait is steady. Respiratory: Respiratory effort is even, unlabored, Respiratory pattern is regular, symmetrical. Derm: Skin is pink, warm \T\ dry. Musculoskeletal: Range of motion: intact in all extremities. Historical: - Allergies: 15:28 Codeine; sv 15:28 PENICILLINS; sv - Home Meds: 15:28 amlodipine oral once daily [Active]; Iron CR Oral daily [Active]; Lasix 100 mg Oral tab sv 1 tab once daily [Active]; Potassium Chloride Oral once daily [Active]; Xanax 2 mg Oral tab 1 tab 3 times per day [Active]; - PMHx: 15:28 Anxiety; Atrial Fib; CAD; cancer - skin; Cancer, Breast; CHF; sv - PSHx: 15:28 pacemaker/Defibrillator; breast cancer surg with lymph on right; sv - Immunization history:: Adult Immunizations up to date. - Social history:: Smoking status: Patient/guardian denies using tobacco. - Ebola Screening: : No symptoms or risks identified at this time. - Family history:: not pertinent. - Hospitalizations: : No recent hospitalization is reported. Screenin:21 Abuse screen: Denies threats or abuse. Denies injuries from another. Nutritional sv screening: No deficits noted. Tuberculosis screening: No symptoms or risk factors identified. Fall Risk None identified. Assessment: 17:05 Reassessment: No changes from previously documented assessment. See triage assessment. sv 17:15 Reassessment: No changes from previously documented assessment. Dr Yun in to see pt fc and explain about STD. Vital Signs: 15:28 BP 103 / 66; Pulse 80; Resp 18; Pulse Ox 97% ; Weight 58.97 kg; Height 5 ft. 2 in. sv (157.48 cm); Pain 0/10; 15:28 Body Mass Index 23.78 (58.97 kg, 157.48 cm) sv ED Course: 15:24 Patient arrived in ED. mr 15:24 Andrzej Treviño MD is Private Physician. mr 15:27 Triage completed. sv 15:28 Arm band placed on right wrist. sv 17:05 Gian Yun MD is Attending Physician. rn 17:21 Patient has correct armband on for positive identification. sv 17:21 No provider procedures requiring assistance completed. Patient did not have IV access sv during this emergency room visit. Administered Medications: No medications were administered Outcome: 17:26 Discharged to home ambulatory. fc 17:26 Condition: good 17:26 Discharge instructions given to patient, Instructed on discharge instructions, follow up and referral plans. Demonstrated understanding of instructions, follow-up care, Prescriptions given X none 18:02 Discharge ordered by . rn 18:03 Patient left the ED. fc Signatures: Reshma Sousa, RN DAMASO Caity Cash mr Beverly Soto RN RN Gian Yun MD MD rn
--- NOTE | 2018-03-13 18:03 | EDPHYS ---
Physician Documentation [facility] Name: Lise Loera Age: 57 yrs Sex: Female : 1960 Arrival Date: 03/13/2018 Time: 15:24 Bed 28 Private MD: Andrzej Treviño S ED Physician Gian Yun HPI: 03/13 17:19 This 57 yrs old Female presents to ER via Ambulatory with complaints of STD rn Exposure. 17:19 Reports had sex twice with homeless man, unprotected, last week, here today because rn wants to know if she has HIV/STD, doesn't have any symptoms, feels fine, "just freaking out". . 17:20 Onset: The symptoms/episode began/occurred at an unknown time. The patient has not rn experienced similar symptoms in the past. The patient has not recently seen a physician. Historical: - Allergies: 15:28 Codeine; sv 15:28 PENICILLINS; sv - Home Meds: 15:28 amlodipine oral once daily [Active]; Iron CR Oral daily [Active]; Lasix 100 mg Oral tab sv 1 tab once daily [Active]; Potassium Chloride Oral once daily [Active]; Xanax 2 mg Oral tab 1 tab 3 times per day [Active]; - PMHx: 15:28 Anxiety; Atrial Fib; CAD; cancer - skin; Cancer, Breast; CHF; sv - PSHx: 15:28 pacemaker/Defibrillator; breast cancer surg with lymph on right; sv - Immunization history:: Adult Immunizations up to date. - Social history:: Smoking status: Patient/guardian denies using tobacco. - Ebola Screening: : No symptoms or risks identified at this time. - Family history:: not pertinent. - Hospitalizations: : No recent hospitalization is reported. ROS: 17:20 Constitutional: Negative for fever, chills, and weight loss, Eyes: Negative for injury, rn pain, redness, and discharge, Cardiovascular: Negative for chest pain, palpitations, and edema, Respiratory: Negative for shortness of breath, cough, wheezing, and pleuritic chest pain, Abdomen/GI: Negative for abdominal pain, nausea, vomiting, diarrhea, and constipation, : Negative for injury, bleeding, discharge, and swelling, MS/Extremity: Negative for injury and deformity, Skin: Negative for injury, rash, and discoloration, Neuro: Negative for headache, weakness, numbness, tingling, and seizure. Exam: 17:20 Constitutional: This is a well developed, well nourished patient who is awake, alert, rn and in no acute distress. Head/Face: Normocephalic, atraumatic. Skin: Warm, dry with normal turgor. Normal color with no rashes, no lesions, and no evidence of cellulitis. Neuro: Awake and alert, GCS 15, oriented to person, place, time, and situation. Motor strength 5/5 in all extremities. Sensory grossly intact. Vital Signs: 15:28 BP 103 / 66; Pulse 80; Resp 18; Pulse Ox 97% ; Weight 58.97 kg; Height 5 ft. 2 in. sv (157.48 cm); Pain 0/10; 15:28 Body Mass Index 23.78 (58.97 kg, 157.48 cm) sv MDM: 17:05 Patient medically screened. rn 17:57 Differential Diagnosis STD exposure. Data reviewed: vital signs, nurses notes, and as a rn result, I will discharge patient. Counseling: I had a detailed discussion with the patient and/or guardian regarding: the need for outpatient follow up, to return to the emergency department if symptoms worsen or persist or if there are any questions or concerns that arise at home. ED course: Spoke with patient, told her we do not screen for STD/HIV, especially without symptoms, offered prophylactic treatment which she declined, and recommended f/u with her pcp for further testing.. 03/13 16:03 Order name: Urine Dipstick--Ancillary (enter results); Complete Time: 17:05 bd 03/13 16:03 Order name: Urine --Ancillary (enter results); Complete Time: 17:05 bd Administered Medications: No medications were administered Disposition: 03/13/18 18:02 Discharged to Home. Impression: Concern for sexually transmitted infection. - Condition is Stable. - Medication Reconciliation Form, Thank You Letter, Antibiotic Education, Prescription Opioid Use form. - Follow up: Private Physician; When: As needed; Reason: Recheck today's complaints, Re-evaluation by your physician. - Problem is new. - Symptoms are unchanged. Signatures: Dispatcher [employer] EDKY Reshma Sousa RN RN Beverly Soto RN RN fc Gian Yun MD MD furnace helper: (The following items were deleted from the chart) 18:03 18:02 03/13/2018 18:02 Discharged to Home. Impression: Concern for sexually transmitted fc infection. Condition is Stable. Forms are Medication Reconciliation Form, Thank You Letter, Antibiotic Education, Prescription Opioid Use. Follow up: Private Physician; When: As needed; Reason: Recheck today's complaints, Re-evaluation by your physician. Problem is new. Symptoms are unchanged. rn
[2018-03-13 18:07] VITALS: BP 103/66; O2SAT 97
== END 2018-03-13 18:03 | disposition home or self-care (01) ==
LOC: ER 15:19
DX: Z20.2 Contact with and (suspected) exposure to infections with a predominantly sexual mode of transmission (principal); I50.9 Heart failure, unspecified; Z88.6 Allergy status to analgesic agent; Z88.0 Allergy status to penicillin
CPT/HCPCS: 81003; 81025; 99281

== ENCOUNTER 2018-05-04 19:44 | Emergency (ER) | payer OTHER ==
--- OUTSIDE RECORDS SUMMARY | 2018-05-04 19:46 | XMS REPORT | Clinical Summary ---
:1960 Author Organization [facility] Address [address] [place] [address] Care Team Providers Name Role Phone Asked, [...] tablet mouth 3 (three) times a day. potassium chloride Take 20 mEq by Discontinued [...] on chronic 05/05/2017 MD Anaid combined systolic and Cem Hart diastolic congestive MD Michael heart failure (Primary Dx) after 05/03/2017 Family History Medical History Relation Name Comments [...] 9.6 oz) 05/05/2017 5:00 AM CDT Height - - Body Mass Index 23.34 05/05/2017 5:00 AM CDT Plan of Treatment Health Maintenance Due Date Last Done Comments CERVICAL CANCER SCREENING 1980 BREAST CANCER SCREENING 2009 COLON CANCER SCREENING 2009 SHINGRIX VACCINE (#1) 2009 INFLUENZA VACCINE 03/20/2018 Implants Implanted Type Area [employer] Superintendent Device Expiration Model / Identifier Date Serial / Lot Generator Quadrheidi Willett [employer] Inspection [employer] Testing Supervisor-D - [id number] - [id number] Cardiac Pacemaker N/A : [employer] 08/19/2018 [id number] / Implanted: Qty: 1 on 10/11/2016 by Kiley Carias Jr., MD Generators N/A MEDICAL [id number] / [id number] Quartet, Lv Leads, Model 1458q-86 - [id number] - [id number] Cardiac Pacing N/A : [employer] 05/19/2019 [id number] / Implanted: Qty: 1 on 10/11/2016 by Kiley Carias Jr., MD Leads or N/A MEDICAL [id number] / Electrodes or [id number] Accessories Tendril Sts, Pacemaker Leads, Model [id number]/52 - [id number] - [id number] Cardiac Pacing N/A: [employer] 07/19/2019 [id number]/52 / Implanted: Qty: 1 on 10/11/2016 by Kiley Carias Jr., MD Leads or N/A MEDICAL [id number] / Electrodes or [id number] Accessories Envlp Impl Crdvrtr Dfb Antbctrl Fully Resorb Lg Aigissrx R - [id number] Cardiovascular N/A: [employer] [id number] / Implanted: 10/11/2016 (Quantity not on file) Implants N/A / Procedures Procedure Name Priority Date/Time Associated Comments Diagnosis PHOSPHORUS LEVEL Routine 05/05/2017 5:45 Results for this AM CDT procedure are in the results section. POTASSIUM LEVEL Routine 05/05/2017 5:45 Results for this AM CDT procedure are in the results section. ZZESTIMATED GFR Routine 05/05/2017 3:30 Results for this [...] are in SPECTRAL COLOR DOPPLER the results (86033) section. CV DEFIBRILLATOR Routine 05/04/2017 1:42 PROGRAMMING [...] CDT procedure are in the results section. ZZESTIMATED GFR Routine 05/04/2017 1:00 Results for this [...] procedure are in the results section. after 05/03/2017 Results Potassium level (05/05/2017 5:45 AM)Only the most recent of3 resultswithin the time period is included. Potassium SEE COMMENT 3.5 - 5.0 mEq/L [facility] DEPARTMENT OF PATHOLOGY Comment: AND [facility] MEDICINE Footnote--------- Unable to report result, specimen hemolyzed. Specimen Plasma specimen Performing Organization Address City/[facility] Phone Number [facility] DEPARTMENT OF PATHOLOGY AND [address] [place] [address] Phosphorus level (05/05/2017 5:45 AM)Only the most recent of2 resultswithin the time period is included. Phosphorus 3.0 2.4 - 4.5 mg/dL [facility] DEPARTMENT OF PATHOLOGY AND GENOMIC MEDICINE Specimen Plasma specimen Performing Organization Address [facility] Phone Number [facility] DEPARTMENT OF PATHOLOGY AND [address] [place] [address] Estimated GFR (05/05/2017 3:30 AM)Only the most recent of2 resultswithin the time period is included. GFR Non Af Amer 29 (A) mL/min/1.73 m2 [facility] DEPARTMENT OF PATHOLOGY AND GENOMIC MEDICINE GFR Af Amer 35 (A) mL/min/1.73 m2 [facility] DEPARTMENT OF Comment: PATHOLOGY AND GENOMIC Chronic [...] Americans. Specimen Plasma specimen Performing Organization Address [facility] Services[facility] Phone Number [facility] DEPARTMENT OF PATHOLOGY AND [address] [place] [address] [facility] CBC with platelet and differential (05/05/2017 3:30 AM)Only the most recent of2 resultswithin the time period is included. WBC 7.10 4.50 - 11.00 k/uL [facility] DEPARTMENT OF PATHOLOGY AND GENOMIC MEDICINE RBC 3.32 (L) 4.20 - 5.50 m/uL [facility] DEPARTMENT OF PATHOLOGY AND GENOMIC MEDICINE HGB 9.6 (L) 12.0 - 16.0 g/dL [facility] DEPARTMENT OF PATHOLOGY AND GENOMIC MEDICINE HCT 31.2 (L) 37.0 - 47.0 % [facility] DEPARTMENT OF PATHOLOGY AND GENOMIC MEDICINE MCV 94.0 82.0 - 100.0 fL [facility] DEPARTMENT OF PATHOLOGY AND GENOMIC MEDICINE MCH 28.9 27.0 - 34.0 pg [facility] DEPARTMENT OF PATHOLOGY AND GENOMIC MEDICINE MCHC 30.8 (L) 31.0 - 37.0 g/dL [facility] DEPARTMENT OF PATHOLOGY AND GENOMIC MEDICINE RDW - SD 50.4 37.0 - 55.0 fL [facility] DEPARTMENT OF PATHOLOGY AND GENOMIC MEDICINE MPV 12.0 8.8 - 13.2 fL [facility] DEPARTMENT OF PATHOLOGY AND GENOMIC MEDICINE Platelet count 210 150 - 400 k/uL [facility] DEPARTMENT OF PATHOLOGY AND GENOMIC MEDICINE Nucleated RBC 0.60 /100 WBC [facility] DEPARTMENT OF PATHOLOGY AND GENOMIC MEDICINE Neutrophils 62.2 39.0 - 69.0 % [facility] DEPARTMENT OF PATHOLOGY AND GENOMIC MEDICINE Lymphocytes 17.7 (L) 25.0 - 45.0 % [facility] DEPARTMENT OF PATHOLOGY AND GENOMIC MEDICINE Monocytes 13.8 (H) 0.0 - 10.0 % [facility] DEPARTMENT OF PATHOLOGY AND GENOMIC MEDICINE Eosinophils 4.9 0.0 - 5.0 % [facility] DEPARTMENT OF PATHOLOGY AND GENOMIC MEDICINE Basophils 0.8 0.0 - 1.0 % [facility] DEPARTMENT OF PATHOLOGY AND GENOMIC MEDICINE Immature granulocytes 0.6Comment: 0.0 - 1.0 % [facility] DEPARTMENT OF "Immature PATHOLOGY AND GENOMIC granulocytes" MEDICINE (promyelocytes, myelocytes, metamyelocytes) Specimen Blood Performing Organization Address City/State/Zipcode Phone Number [facility] DEPARTMENT OF PATHOLOGY AND [address] [place] [address] GENOMIC MEDICINE Magnesium level (05/05/2017 3:30 AM)Only the most recent of2 resultswithin the time period is included. Magnesium 2.1 1.6 - 2.6 mg/dL [facility] DEPARTMENT OF PATHOLOGY AND GENOMIC MEDICINE Specimen Plasma specimen Performing Organization Address [facility] Phone Number [facility] DEPARTMENT OF PATHOLOGY AND [address] [place] [address] MEDICINE Ionized calcium (05/05/2017 3:30 AM) pH 7.68 [facility] DEPARTMENT OF PATHOLOGY AND GENOMIC MEDICINE Ionized calcium 0.88 (L) 1.11 - 1.32 mmol/L [facility] DEPARTMENT OF PATHOLOGY AND GENOMIC MEDICINE Specimen Plasma specimen Performing Organization Address [facility] Phone Number [facility] DEPARTMENT OF PATHOLOGY AND [address] [place] [address] Basic metabolic panel (05/05/2017 3:30 AM) Sodium 136 135 - 148 mEq/L [facility] DEPARTMENT OF PATHOLOGY AND GENOMIC MEDICINE Potassium Footnote 3.5 - 5.0 mEq/L [facility] DEPARTMENT OF PATHOLOGY AND GENOMIC MEDICINE Chloride 95 (L) 98 - 112 mEq/L [facility] DEPARTMENT OF PATHOLOGY AND GENOMIC MEDICINE CO2 28 24 - 31 mEq/L [facility] DEPARTMENT OF PATHOLOGY AND GENOMIC MEDICINE Anion gap 13 7 - 15 mEq/L [facility] DEPARTMENT OF PATHOLOGY Comment: AND [facility] Starting from November , anion gap calculation no longer incorporates potassium. Please note the change. BUN 25 (H) 6 - 20 mg/dL [facility] DEPARTMENT OF PATHOLOGY AND GENOMIC MEDICINE Creatinine 1.8 (H) 0.5 - 0.9 mg/dL [facility] DEPARTMENT OF PATHOLOGY AND GENOMIC MEDICINE Glucose 102 (H) 65 - 99 mg/dL [facility] DEPARTMENT OF PATHOLOGY AND GENOMIC MEDICINE Calcium 8.2 (L) 8.3 - 10.2 mg/dL [facility] DEPARTMENT OF PATHOLOGY AND GENOMIC MEDICINE Specimen Plasma specimen Performing Organization Address [facility] Phone Number [facility] DEPARTMENT OF PATHOLOGY AND [address] [place] [address] Echocardiogram complete w contrast and 3D if needed (05/04/2017 5:48 PM) Narrative Performed At [facility] Echocardiography Report [address] [place] [address] Pat.Name:Penelope HERNANDEZ.ID:[id number] .Date: 05/04/2017 Refer.MD:CEM HART MD Exam Time: 4:54:00 PMStudy Type:Routine Echo Height:62inWeight: 126lb BSA: 1.57 m2 DOBAge:1960,56Y Sex: FEMALEBP:84/54 HR:63 bpmSonogrphr: Yuni Rdz [facility] Pat. Stat.:Inpatient Room:[place] [address] Study Status:Final Echo Event ID:[id number] Order ID:[id number] Reason for Study:Arrhythmias - Sustained or nonsustained [...] RAPof 10 mmHg. MEASUREMENTS: 2D Parasternal [place] Ao An1.8 cmLVPWd0.8 cm LVOT 1.7 cmLA Ds3.5 cm LVIDd7.2 cmIndex4.6 cm/m Ao Rtd 2.5 cm Index1.6 cm/m LVIDs6.6 cmLV Fmkj790.8 g(87-129) LV%fs8.4 % LVM Msaeg144.2 g/m2 IVSd 0.6 cmRWT0.2 DOPPLER LVOT Stroke Vol LVOT 1.7 cmLVOT CO1.2 l/min LVOT TVI 8.5 cmLVOT CI0.7 l/m/m2 LVOT Tm233 ffezOZ41 bpm LVOT SV 19.2 ml TV Pressure Gradient TV PkVel 316.4 cm/sTV PG 40 mmHg Signed 05/05/2017 05:52 PM Teresita Sanders M.D. Procedure Note Interface, Radiology Results In - 05/05/2017 5:52 PM CDT Echocardiography Report [address] [place] [address] Pat.Name: JALEEL HERNANDEZ Pat.ID: [id number] .Date: 05/04/2017 Refer.MD: CEM HART MD Exam Time: 4:54:00 PM Study Type:Routine Echo Height: 62in Weight: 126lb BSA: 1.57 m2 Age: 2 1960,56Y Sex: FEMALE BP: 84/54 HR: 63 bpm Sonogrphr: ABRAHAM Robison Pat. Stat.:Inpatient Room: [place] [address] Study Status:Final Echo Event ID:[id number] Order ID: [id number] Reason for Study:Arrhythmias - Sustained or nonsustained [...] of 10 mmHg. MEASUREMENTS: 2D Parasternal [place] Ao An 1.8 cm LVPWd 0.8 cm [...] PM Teresita Sanders M.D. Performing Organization Address City/[facility]/Zipcode Phone Number [facility] [address] [place] [address] CV pacemaker defib or ilr interrogation (05/04/2017 1:42 PM) Narrative Performed At Performing Organization Address [facility]/Zipcode Phone Number [facility] [address] [place] [address] POC glucose (05/04/2017 9:04 AM)Only the most recent of3 resultswithin the time period is included. POC glucose 109 (H) 65 - 99 mg/dL [facility] DEPARTMENT OF PATHOLOGY AND Comment: GENOMIC MEDICINE [facility] Notified RN Meter ID: [id number] Writer Technical Publications: Kailey Davis Performing Organization Address [facility] Phone Number [facility] DEPARTMENT OF PATHOLOGY AND [address] [place] [address] GENOMIC MEDICINE XR Chest 1 Vw Portable (05/04/2017 2:22 AM) Narrative Performed At EXAMINATION: XR CHEST 1 VW PORTABLE [facility] CLINICAL HISTORY: Congestive Heart Failure COMPARISON:04/10/2017.. IMPRESSION: Left AICD with stable leads. No pleural effusion or pneumothorax. The cardiac silhouette appears prominent, stable. No acute osseous abnormalities. Right axillary clips. [facility]-[id number] Procedure Note Hm Interface, Radiology Results Incoming - 05/04/2017 2:36 AM CDT EXAMINATION: XR CHEST 1 VW PORTABLE CLINICAL HISTORY: Congestive Heart Failure COMPARISON: 04/10/2017.. IMPRESSION: Left AICD with stable leads. No pleural effusion or pneumothorax. The cardiac silhouette appears prominent, stable. No acute osseous abnormalities. Right axillary clips. [facility]-[id number] Performing Organization Address [facility]/Zipcode Phone Number [facility] [address] [place] [address] Troponin (05/04/2017 1:00 AM) Troponin <0.30 0.00 - 0.30 ng/mL [facility] DEPARTMENT OF PATHOLOGY Comment: AND GENOMIC MEDICINE 0.30 - 1.49 ng/mlMay indicate increased risk of acute coronary syndrome. >=1.5 ng/mlConsistent with acute myocardial infarction. The diagnostic value of a single normal or non-diagnostic result is questionable.Serial samples at 2-6 hour intervals are required to rule out acute myocardial injury. Specimen Plasma specimen Performing Organization Address [facility] Phone Number [facility] DEPARTMENT OF PATHOLOGY AND [address] [place] [address] Partial thromboplastin time, activated (05/04/2017 1:00 AM) PTT 32.2 23.0 - 36.0 sec [facility] DEPARTMENT OF PATHOLOGY Comment: AND [facility] PTT therapeutic range for unfractionated heparin is 61.0-112.0 seconds which corresponds to Anti-Xa 0.3-0.7 U/ml. Specimen Blood Performing Organization Address [facility] Phone Number [facility] DEPARTMENT OF PATHOLOGY AND [address] [place] [address] Prothrombin time with INR (05/04/2017 1:00 AM) Prothrombin time 17.8 (H) 12.0 - 15.0 sec [facility] DEPARTMENT OF PATHOLOGY AND GENOMIC MEDICINE INR 1.4 [facility] DEPARTMENT OF Comment: PATHOLOGY AND GENOMIC The International Normalized Ratio (INR) is a therapeutic MEDICINE monitoring tool for patients who are stable on oral anticoagulant therapy. An INR of 2.0-3.0 is suggested for deep vein thrombosis/pulmonary embolism. Specimen Blood Performing Organization Address [facility] Phone Number [facility] DEPARTMENT OF PATHOLOGY AND [address] [place] [address] B natriuretic peptide (05/04/2017 1:00 AM) BNP 1,284 (H) 0 - 100 pg/mL [facility] DEPARTMENT OF PATHOLOGY AND GENOMIC [facility] Specimen Blood Performing Organization Address [facility] Phone Number [facility] DEPARTMENT OF PATHOLOGY AND [address] [place] [address] Comprehensive metabolic panel (05/04/2017 1:00 AM) Sodium 145 135 - 148 mEq/L [facility] DEPARTMENT OF PATHOLOGY AND GENOMIC MEDICINE Potassium 3.6 3.5 - 5.0 mEq/L [facility] DEPARTMENT OF PATHOLOGY AND GENOMIC MEDICINE Chloride 97 (L) 98 - 112 mEq/L [facility] DEPARTMENT OF PATHOLOGY AND GENOMIC MEDICINE CO2 30 24 - 31 mEq/L [facility] DEPARTMENT OF PATHOLOGY AND GENOMIC MEDICINE Anion gap 18 (H) 7 - 15 mEq/L [facility] DEPARTMENT OF Comment: PATHOLOGY AND GENOMIC Starting from November , anion gap calculation MEDICINE no longer incorporates potassium. Please note the change. BUN 27 (H) 6 - 20 mg/dL [facility] DEPARTMENT OF PATHOLOGY AND GENOMIC MEDICINE Creatinine 1.9 (H) 0.5 - 0.9 mg/dL [facility] DEPARTMENT OF PATHOLOGY AND GENOMIC MEDICINE Glucose 104 (H) 65 - 99 mg/dL [facility] DEPARTMENT OF PATHOLOGY AND GENOMIC MEDICINE Calcium 8.5 8.3 - 10.2 mg/dL [facility] DEPARTMENT OF PATHOLOGY AND GENOMIC MEDICINE Protein 6.9 6.3 - 8.3 g/dL [facility] DEPARTMENT OF Comment: PATHOLOGY AND GENOMIC 4.6-7.0 g/dL MEDICINE 1 week 4.4-7.6 g/dL 7 months-1year5.1-7.3 g/dL 1-2 years5.6-7.5 g/dL >3 years6.0-8.0 g/dL 18-150 6.3-8.3 g/dL Albumin 3.2 (L) 3.5 - 5.0 g/dL [facility] DEPARTMENT OF PATHOLOGY AND GENOMIC MEDICINE A/G ratio 0.9 0.7 - 3.8 [facility] DEPARTMENT OF PATHOLOGY AND GENOMIC MEDICINE Alkaline phosphatase 94 35 - 104 U/L [facility] DEPARTMENT OF PATHOLOGY AND GENOMIC MEDICINE AST 38 (H) 10 - 35 U/L [facility] DEPARTMENT OF PATHOLOGY AND GENOMIC MEDICINE ALT 47 5 - 50 U/L [facility] DEPARTMENT OF PATHOLOGY AND GENOMIC MEDICINE Total bilirubin 1.2 0.0 - 1.2 mg/dL [facility] DEPARTMENT OF PATHOLOGY AND GENOMIC MEDICINE Specimen Plasma specimen Performing Organization Address City/[facility] Phone Number [facility] DEPARTMENT OF PATHOLOGY AND [address] [place] [address] [facility] ECG 12 lead (05/04/2017 12:39 AM) Ventricular rate 60 [facility] Atrial rate 58 [facility] QRSD interval 168 [facility] QT interval 590 [facility] QTC interval 590 [facility] QRS axis 1 141 [facility] T wave axis 251 [facility] EKG impression AV dual-paced rhythm-Abnormal ECG-In [facility] MUSE automated comparison with ECG of 10-APR-2017 18:38,-Vent. rate has decreased BY 20 BPM- Performing Organization Address City/[facility] Servicescode Phone Number [facility] MUSE [address] [place] [address] after 05/03/2017 Insurance Payer Benefit Plan / Group Subscriber ID Type Phone Address MEDICARE MEDICARE PART A AND B xxxxxxxxxx Medicare [place], [place] Home: [address] [facility] [address] [phone] [place] [id number]
[2018-05-04] MEDS ORDERED: NA CHLORIDE 0.9% 1,000 ML ONE (20:38)
--- NOTE | 2018-05-04 20:44 | RAD REPORT ---
EXAM DESCRIPTION: CT - Head Brain Wo Cont - 05/04/2018 8:34 pm CLINICAL HISTORY: Breast cancer and weakness COMPARISON: November 2017 TECHNIQUE: Computed axial tomography of the head was obtained. IV contrast was not requested. All CT scans are performed using dose optimization technique as appropriate and may include automated exposure control or mA/KV adjustment according to patient size. FINDINGS: An intracranial bleed is not seen . The ventricles are normal in caliber. No extra-axial fluid collection is noted. Mild to moderate low-density areas within periventricular, deep and subcortical white matter likely represent ischemic changes secondary to small vessel disease . Fluid within the sinuses/ mastoids is not seen. IMPRESSION: No acute intracranial abnormality is seen. If patient's symptoms persist MRI of the bra in would be recommended.
[2018-05-04 21:48] LABS: Barbiturates NEGATIVE (NEGATIVE); Benzodiazepines POSITIVE (NEGATIVE); Cocaine NEGATIVE (NEGATIVE); METHAMPHETAM NEGATIVE (NEGATIVE); Methadone NEGATIVE (NEGATIVE); Opiates NEGATIVE (NEGATIVE); Phencyclidine NEGATIVE (NEGATIVE); THC Cannibis NEGATIVE (NEGATIVE)
--- NOTE | 2018-05-04 22:40 | EDPHYS ---
Physician Documentation [facility] Name: Lise Loera Age: 57 yrs Sex: Female : 1960 Arrival Date: 05/04/2018 Time: 19:46 Bed 6 Private MD: ED Physician Donis Mota HPI: 05/04 22:31 This 57 yrs old Female presents to ER via EMS with complaints of Fatigue near gs syncope. 22:31 The patient has experienced near-syncope, almost passed out. Onset: The gs symptoms/episode began/occurred acutely, just prior to arrival. Duration: This was a single episode. Associated injury: The patient did not suffer any apparent associated injury. Associated signs and symptoms: Pertinent positives: back pain, Pertinent negatives: abdominal pain. Current symptoms: decreased level of consciousness, talking like she is intoxicated. The patient has experienced similar episodes in the past, a few times. Historical: - Allergies: 19:58 Codeine; ea 19:58 PENICILLINS; ea - Home Meds: 19:58 Xanax 2 mg Oral tab 1 tab 3 times per day [Active]; Potassium Chloride Oral once daily ea [Active]; Lasix 100 mg Oral tab 1 tab once daily [Active]; Iron CR Oral daily [Active]; amlodipine oral once daily [Active]; - PMHx: 19:58 CHF; Anxiety; Atrial Fib; CAD; cancer - skin; Cancer, Breast; ea - PSHx: 19:58 pacemaker/Defibrillator; breast cancer surg with lymph on right; ea - Immunization history:: Adult Immunizations up to date. - Social history:: Smoking status: Patient/guardian denies using tobacco. - Ebola Screening: : No symptoms or risks identified at this time. ROS: 22:31 All other systems are negative. gs Exam: 22:31 Head/Face: Normocephalic, atraumatic. Eyes: Pupils equal round and reactive to light, gs extra-ocular motions intact. Lids and lashes normal. Conjunctiva and sclera are non-icteric and not injected. Cornea within normal limits. Periorbital areas with no swelling, redness, or edema. ENT: Nares patent. No nasal discharge, no septal abnormalities noted. Tympanic membranes are normal and external auditory canals are clear. Oropharynx with no redness, swelling, or masses, exudates, or evidence of obstruction, uvula midline. Mucous membranes moist. Neck: Trachea midline, no thyromegaly or masses palpated, and no cervical lymphadenopathy. Supple, full range of motion without nuchal rigidity, or vertebral point tenderness. No Meningismus. Chest/axilla: Normal chest wall appearance and motion. Nontender with no deformity. No lesions are appreciated. Cardiovascular: Regular rate and rhythm with a normal S1 and S2. No gallops, murmurs, or rubs. Normal PMI, no JVD. No pulse deficits. Respiratory: Lungs have equal breath sounds bilaterally, clear to auscultation and percussion. No rales, rhonchi or wheezes noted. No increased work of breathing, no retractions or nasal flaring. Abdomen/GI: Soft, non-tender, with normal bowel sounds. No distension or tympany. No guarding or rebound. No evidence of tenderness throughout. Back: No spinal tenderness. No costovertebral tenderness. Full range of motion. Skin: Warm, dry with normal turgor. Normal color with no rashes, no lesions, and no evidence of cellulitis. MS/ Extremity: Pulses equal, no cyanosis. Neurovascular intact. Full, normal range of motion. 22:31 Neuro: Orientation: to person, place \T\ time. Mentation: slow to respond, Cranial nerves: CN II- XII are normal as tested, Cerebellar function: no acute changes, Motor: moves all fours, Sensation: no obvious gross deficits. Vital Signs: 19:48 BP 130 / 117; Pulse 73; Resp 18; Temp 98; Pulse Ox 99% on R/A; Weight 61.23 kg; Height ea 5 ft. 2 in. (157.48 cm); Pain 0/10; 20:02 BP 73 / 45; Pulse 73; Resp 18; Pulse Ox 99% ; ea 20:24 BP 77 / 53; Pulse 75; Resp 18; Pulse Ox 99% ; ea 21:09 BP 83 / 65; Pulse 72; Resp 18; Pulse Ox 99% on R/A; ea 19:48 Body Mass Index 24.69 (61.23 kg, 157.48 cm) ea MDM: 20:04 Patient medically screened. 22:31 Differential Diagnosis: aortic aneurysm, cerebrovascular accident, drug effect. Data gs reviewed: vital signs, nurses notes. Response to treatment: the patient's symptoms have mildly improved after treatment, pt demand morphine shot told her with her BP and incomplete workup could not give her meds, she chose to leave AMA. 22:40 ED course: also refused blood draw. 05/04 20:07 Order name: Basic Metabolic Panel 05/04 20:07 Order name: CBC with Diff 05/04 20:07 Order name: CPK 05/04 20:07 Order name: XRAY Chest (1 view) 05/04 20:07 Order name: Urine Drug Screen; Complete Time: 22:40 05/04 20:07 Order name: EKG; Complete Time: 20:08 05/04 20:07 Order name: Cardiac monitoring; Complete Time: 20:23 05/04 20:07 Order name: EKG - Nurse/Tech; Complete Time: 20:23 05/04 20:07 Order name: O2 Per Protocol; Complete Time: 20:23 05/04 20:07 Order name: O2 Sat Monitoring; Complete Time: 20:23 05/04 20:07 Order name: CT Head Brain wo Cont; Complete Time: 22:40 gs Administered Medications: No medications were administered Disposition: 05/04/18 22:39 Patient has left against medical advice. Impression: Syncope and collapse. - Patients states they are going to Home. - Condition is Stable. - Discharge Instructions: Near-Syncope. Follow up: Private Physician; When: 2 - 3 days; Reason: Re-evaluation by your physician. - Problem is new. - Symptoms have improved. Signatures: Dispatcher [employer] [facility] Beverly Soto RN RN fc Antunez, Elena, RN RN ea Starr, Gregory, MD MD Corrections: (The following items were deleted from the chart) 22:43 22:20 Stone Protocol+CT.RAD.BRZ ordered. [facility] 22:57 22:39 05/04/2018 22:39 Patients has left against medical advice. Impression: Syncope fc and collapse. Patient states they are going to Home. Condition is Stable. Follow up: Private Physician; When: 2 - 3 days; Reason: Re-evaluation by your physician. Problem is new. Symptoms have improved.
--- NOTE | 2018-05-04 22:40 | ER ---
Nurse's Notes [facility] Name: Lise Loera Age: 57 yrs Sex: Female : 1960 Arrival Date: 05/04/2018 Time: 19:46 Bed 6 Private MD: Diagnosis: Syncope and collapse Presentation: 05/04 19:48 Presenting complaint: EMS states: EMS reports patient was hypotensive and complaining ea of weakness. EMS states pt normally runs 90/50 but was running 74/40 and was positive for orthostatic hypotension. BGL 122. Transition of care: patient was not received from another setting of care. Onset of symptoms was May 04, 2018. Risk Assessment: Do you want to hurt yourself or someone else? Patient reports no desire to harm self or others. Initial Sepsis Screen: Does the patient meet any 2 criteria? No. Patient's initial sepsis screen is negative. Does the patient have a suspected source of infection? No. Patient's initial sepsis screen is negative. Care prior to arrival: BGL 122, EMS reports patient refused IV. 19:48 Method Of Arrival: EMS: [facility] ea 19:48 Acuity: ESTRELLITA 3 ea Triage Assessment: 19:58 General: Appears uncomfortable, Behavior is calm, cooperative, appropriate for age. ea Pain: Denies pain. EENT: No signs and/or symptoms were reported regarding the EENT system. Neuro: Level of Consciousness is awake, alert, obeys commands, Oriented to person, place, time, situation. Cardiovascular: Patient's skin is warm and dry. Cardiovascular: Heart tones S1 S2 present Parent/caregiver reports patient has had patient reports she has a pacemaker/defibrillator in place. Respiratory: Airway is patent Respiratory effort is even, unlabored, Respiratory pattern is regular, symmetrical. GI: No signs and/or symptoms were reported involving the gastrointestinal system. Bowel sounds present X 4 quads. : No signs and/or symptoms were reported regarding the genitourinary system. Derm: Skin is pink, warm \\T\\ dry. Musculoskeletal: Circulation, motion, and sensation intact. Historical: - Allergies: 19:58 Codeine; ea 19:58 PENICILLINS; ea - Home Meds: 19:58 Xanax 2 mg Oral tab 1 tab 3 times per day [Active]; Potassium Chloride Oral once daily ea [Active]; Lasix 100 mg Oral tab 1 tab once daily [Active]; Iron CR Oral daily [Active]; amlodipine oral once daily [Active]; - PMHx: 19:58 CHF; Anxiety; Atrial Fib; CAD; cancer - skin; Cancer, Breast; ea - PSHx: 19:58 pacemaker/Defibrillator; breast cancer surg with lymph on right; ea - Immunization history:: Adult Immunizations up to date. - Social history:: Smoking status: Patient/guardian denies using tobacco. - Ebola Screening: : No symptoms or risks identified at this time. Screenin:56 Abuse screen: Denies threats or abuse. Nutritional screening: No deficits noted. ea Tuberculosis screening: No symptoms or risk factors identified. Fall Risk Secondary diagnosis (15 points) weakness. Assessment: 19:48 Reassessment: see triage assessment. ea 20:26 Reassessment: Pt taken to CT. ea 20:42 Reassessment: Patient and/or family updated on plan of care and expected duration. Pain ea level reassessed. Patient is alert, oriented x 3, equal unlabored respirations, skin warm/dry/pink. Returned from CT. 20:50 Reassessment: Attempting to start IV, pt states she is unable to have IV's on ea extremities reports it's due to breast cancer with lymph removal. Pt states the only place available is in her foot. 21:30 Reassessment: Went in to start midline on pt and pt refused to allow that to happen. fc She states that she does not need the iv and just wants a shot. 21:35 Reassessment: Refused IV, patient states "all I need is a shot of morphine and ea something for nausea, I don't need an IV". Provider notified of pt refusing IV. 22:15 Reassessment: Dr Mota went in to talk with pt about her needing blood and an IV. Pt fc states that she does not want to do that, she is just wanting medication for her back. He explained to her that we needed to find out why she was feeling bad and pt stated that she just wants her back fixed and that her blood pressure is normally low. He tired to reason with pt and she continued to just state that she has back pain and needs medication for it. He explained again that he would not give her Morphine which she asked for. Pt got very upset and stated that she would just leave if he was not going to fix her back. He explained that she would have to sign out AMA and pt stated that she would. 22:20 Reassessment: Patient is alert, oriented x 3, equal unlabored respirations, skin ea warm/dry/pink. Pt requesting to go AMA, pt educated on the possible adverse effects of going AMA, pt verbalized the understanding. Vital Signs: 19:48 BP 130 / 117; Pulse 73; Resp 18; Temp 98; Pulse Ox 99% on R/A; Weight 61.23 kg; Height ea 5 ft. 2 in. (157.48 cm); Pain 0/10; 20:02 BP 73 / 45; Pulse 73; Resp 18; Pulse Ox 99% ; ea 20:24 BP 77 / 53; Pulse 75; Resp 18; Pulse Ox 99% ; ea 21:09 BP 83 / 65; Pulse 72; Resp 18; Pulse Ox 99% on R/A; ea 19:48 Body Mass Index 24.69 (61.23 kg, 157.48 cm) ea ED Course: 19:46 Patient arrived in ED. aa1 19:48 Renetta Nina, RN is Primary Nurse. ea 19:48 Arm band placed on left wrist. Patient placed in an exam room, on a stretcher, on ea outside property agent, on pulse oximetry. 19:49 Patient has correct armband on for positive identification. Bed in low position. Call aa1 light in reach. Side rails up X2. 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 Pulse ox on. NIBP on. Warm blanket given. 19:50 Donis Mota MD is Attending Physician. gs 19:56 Triage completed. ea 20:20 EKG done, by electrocardiograph technician. reviewed by Donis Mota MD. ea 20:33 CT completed. Patient moved to CT via stretcher. Patient moved back from CT. cw1 20:34 CT Head Brain wo Cont In Process Unspecified. EDMS 21:10 Missed attempt(s): 22 gauge in left foot. Pt refuses to allow staff to attempt IV start aa1 in any other location than her foot first. Pt informed that this is not an ideal location but she insists that staff attempt IV access in her foot prior to attempting any other location. Bleeding controlled, band aid applied, catheter tip intact. 21:20 Missed attempt(s): 22 gauge in right wrist. Bleeding controlled, band aid applied, aa1 catheter tip intact. 22:07 XRAY Chest (1 view) In Process Unspecified. EDMS 22:20 No provider procedures requiring assistance completed. Patient did not have IV access ea during this emergency room visit. 22:[address] via stretcher. cw1 Administered Medications: No medications were administered Outcome: 22:20 AMA AMA form signed ea 22:57 Patient left the ED. fc Signatures: Dispatcher [employer] EDHailey Cavazos RN RN aa1 Beverly Soto RN RN Jennifer Magana cw1 Renetta Nina RN RN ea Donis Mota MD MD gs Corrections: (The following items were deleted from the chart) 21:15 20:50 Reassessment: Attempting to start IV, pt states she is unable to have IV's on ea extremities reports it's due to breast cancer with lymph removal ea 05/05 00:51 00:48 Reassessment: Patient is alert, oriented x 3, equal unlabored respirations, skin ea warm/dry/pink. Pt requesting to go AMA, pt educated on the possible adverse effects of going AMA, pt verbalized the understanding. ea
[2018-05-04 23:01] VITALS: TEMP 98; O2SAT 99
[2018-05-04 23:04] VITALS: BP 83/65
--- NOTE | 2018-05-05 08:17 | RAD REPORT ---
EXAM DESCRIPTION: RAD - Chest Single View - 05/04/2018 10:08 pm CLINICAL HISTORY: Weakness, shortness of breath, history of coronary artery disease, atrial fibrilla tion and CHF COMPARISON: April 2017 TECHNIQUE: AP portable chest image was obtained 2047 hours . FINDINGS: No peripheral mass or consolidation. Prominent breast soft tissue hand implants increase o verall haziness to the lung [place]. Lung markings are not outside of normal range but are minimally p rominent. Interstitial pattern is similar to comparison. Mild cardiomegaly is present. No vascular engorgement seen. Pacemaker/ defibrillator is in place. Tr achea is midline. No measurable pleural effusion and no pneumothorax. No gross bony abnormality seen. No acute aortic findings suspected. IMPRESSION: Mild cardiomegaly similar to comparison. No vascular engorgement. Interstitial markings are mildly prominent but not clearly different. No focal consolidation, mass or significant failure.
--- NOTE | 2018-05-06 06:54 | EKG ---
Test Date: 2018-05-04 Test Time: 20:19:41 Corporate Pilot: RICKEY MEASUREMENT RESULTS: Intervals: Rate: 73 NJ: 126 QRSD: 172 QT: 548 QTc: 603 Junior: P: 67 NJ: 126 QRS: 145 T: -60 INTERPRETIVE STATEMENTS: Atrial-sensed ventricular-paced rhythm Biventricular pacemaker detected Abnormal ECG Compared to ECG 05/03/2017 19:47:44 No significant changes Electronically Signed On 05-06-18 06:51:29 CDT by Juma Dickey
== END 2018-05-04 22:57 | disposition left against medical advice (07) ==
LOC: ER 19:44
DX: R55 Syncope and collapse (principal); Z88.6 Allergy status to analgesic agent; Z88.0 Allergy status to penicillin; F41.9 Anxiety disorder, unspecified; I50.9 Heart failure, unspecified; Z95.0 Presence of cardiac pacemaker
CPT/HCPCS: 70450; 71045; 80307 ×8; 93005; 99285; J7030

== ENCOUNTER 2018-12-13 21:07 | Observation (INO) | payer OTHER ==
--- OUTSIDE RECORDS SUMMARY | 2018-12-13 21:09 | XMS REPORT | Clinical Summary ---
:1960 Author Organization [facility] Address [address] [place] [id number] Care Team Providers Name Role Phone Asked, No Pcp Primary Care Provider Unavailable Allergies Active Allergy Reactions Severity Noted Date Comments Codeine GI Intolerance Medium 10/11/2016 Vomiting Penicillins Anaphylaxis High 04/06/2017 Medications Medication Sig Dispensed Refills Start Date End Date Status spironolactone Take 0.5 mg by 0 Active (ALDACTONE) 25 MG tablet mouth daily. ALPRAZolam (XANAX) 2 MG Take 2 mg by 0 Active tablet mouth 3 (three) times a day. Active Problems Problem Noted Date Hypokalemia 05/04/2017 VT (ventricular tachycardia) 05/04/2017 Delirium due to multiple etiologies 04/11/2017 A-fib 04/10/2017 Cardiogenic shock 04/10/2017 Atrial fibrillation 04/09/2017 Anxiety 04/07/2017 Acute right otitis media 04/07/2017 Shortness of breath 04/06/2017 Combined systolic and diastolic congestive heart failure 10/11/2016 Family History Medical History Relation Name Comments Heart disease Father Liver disease Mother Relation Name Status Comments Father Mother Social History Tobacco Use Types Packs/Day Years Used Date Former Smoker Cigarettes Tobacco Cessation: Counseling Given: No Alcohol Use Drinks/Week oz/Week Comments No Sex Assigned at Date Recorded Not on file Job Start Date Occupation Industry Not on file Not on file Not on file Travel History Travel Start Travel End No recent travel history available. Last Filed Vital Signs Not on file Plan of Treatment Health Maintenance Due Date Last Done Comments CERVICAL CANCER SCREENING 1980 BREAST CANCER SCREENING 2009 COLON CANCER SCREENING 2009 SHINGLES VACCINES (#1) 2009 INFLUENZA VACCINE 03/20/2019 Implants Implanted Type Area Immigration Inspector Device Shelf Model / Identifier Expiration Serial / Date Lot Generator Quadra Assura Mp Coding Educator-D - [id number] - [id number] Cardiac Pacemaker N/A : [employer] 08/19/2018 [id number] / Implanted: Qty: 1 on 10/11/2016 by Kiley Carias Jr., MD Generators N/A MEDICAL [id number] / [id number] Quartet, Lv Leads, Model 1458q-86 - [id number] - [id number] Cardiac Pacing N/A : [employer] 05/19/2019 [id number] / Implanted: Qty: 1 on 10/11/2016 by Kiley Carias Jr., MD Leads or N/A MEDICAL [id number] / Electrodes or [id number] Accessories Tendril Sts, Pacemaker Leads, Model 8tc/52 - [id number] - [id number] Cardiac Pacing N/A: [employer] 07/19/2019 [id number] / Implanted: Qty: 1 on 10/11/2016 by Kiley Carias Jr., MD Leads or N/A MEDICAL [id number] / Electrodes or [id number] Accessories Envlp Impl Crdvrtr Dfb Antbctrl Fully Resorb Lg Aigissrx R - [id number] Cardiovascular N/A: [employer] [id number] / Implanted: 10/11/2016 (Quantity not on file) Implants N/A / Results Not on fileafter 12/12/2017 Insurance Payer Benefit Plan / Group Subscriber ID Type Phone Address MEDICARE MEDICARE PART A AND B xxxxxxxxxx Medicare [place], [place] Advance Directives Patient has advance care planning documents, and code status on file. For more information, please contact:[place] [address] Code Status Date Activated Date Inactivated Comments DNR 04/17/2017 10:02 AM 04/19/2017 4:40 PM Code Status decision reached by: Patient Full Code 04/07/2017 1:50 AM 04/17/2017 10:02 AM Code Status decision reached by: Patient
--- OUTSIDE RECORDS SUMMARY | 2018-12-13 21:09 | XMS REPORT ---
:1960 [facility] Address [address] [place] [address] Dr. Damon [address] [place] [id number] Care Team Providers Name Role Phone Unavailable Unavailable Unavailable Problems This patient has no known problems. Allergies, Adverse Reactions, Alerts This patient has no known allergies or adverse reactions. Medications This patient has no known medications.
[2018-12-13 22:11] LABS: Absolute Monocytes 0.7 K/uL (0.1-1.3); Absolute Neutrophil 3.6 K/uL (1.8-8.0); Basophils % 1.2 % (0-1.3); Eosinophils % 0.6 % (0-4.4); Lymphocytes % 18.8 % (15.3-44.8); MPV 10.6 fL (7.6-11.3); Monocytes % 12.4 % (3.3-12.3); RBC Red Blood Cell Count 4.15 M/uL (3.86-4.86)
[2018-12-13 22:17] LABS: Protime INR 1.06
[2018-12-13 22:40] LABS: Barbiturates NEGATIVE (NEGATIVE); Benzodiazepines POSITIVE (NEGATIVE); Cocaine NEGATIVE (NEGATIVE); METHAMPHETAM NEGATIVE (NEGATIVE); Methadone NEGATIVE (NEGATIVE); Opiates NEGATIVE (NEGATIVE); Phencyclidine NEGATIVE (NEGATIVE); THC Cannibis POSITIVE (NEGATIVE)
[2018-12-13 22:41] LABS: ALT/SGPT 36 U/L (12-78); AST/SGOT 34 U/L (15-37); Albumin 4.2 g/dL (3.4-5.0); Alkaline Phosphatase 190 U/L (45-117); BUN Blood Urea Nitrogen 35 mg/dL (7-18); Bicarbonate 29 mmol/L (21-32); Bilirubin Direct 0.1 mg/dL (0-0.2); Bilirubin Total 0.5 mg/dL (0.2-1.0); Glucose Level 109 mg/dL (74-106); Magnesium 2.5 mg/dL (1.8-2.4); NT PRO-BNP 13694 pg/mL (<125); Potassium 3.8 mmol/L (3.5-5.1); Protein, Total 7.9 g/dL (6.4-8.2); Sodium Level 143 mmol/L (136-145); Troponin (Emerg Dept Use Only) < 0.02 ng/mL (0.0-0.045)
[2018-12-13 23:47] LABS: Urine Blood 2+ (NEG); Urine Glucose NEGATIVE (NEG); Urine Protein TRACE (NEG); Urine pH 5.5 (5.0-7.0)
[2018-12-14] MEDS ORDERED: NA CHLORIDE 0.9% 1,000 ML ONE (00:33)
[2018-12-14] MEDS ORDERED: CEFTRIAXONE/SWI 1gm 1 GM/10 ML SYR ONE (00:33)
--- NOTE | 2018-12-14 00:46 | ER ---
Nurse's Notes [facility] Name: Lise Loera Age: 58 yrs Sex: Female : 1960 Arrival Date: 12/13/2018 Time: 21:12 Bed 25 Private MD: Diagnosis: Anxiety disorder, unspecified;Atrial fibrillation and flutter;Chest pain, unspecified;Cardiomegaly;Unspecified combined systolic (congestive) and diastolic (congestive) heart failure;Abuse of non-psychoactive substances;Bipolar disorder;Urinary tract infection, site not specified Presentation: 12/13 21:12 Presenting complaint: EMS states: called in for Chest pain and . Transition of care: ca1 patient was not received from another setting of care. Onset of symptoms was December 13, 2018. Risk Assessment: Do you want to hurt yourself or someone else? Patient reports no desire to harm self or others. Initial Sepsis Screen: Does the patient meet any 2 criteria? No. Patient's initial sepsis screen is negative. Does the patient have a suspected source of infection? No. Patient's initial sepsis screen is negative. 21:12 Method Of Arrival: EMS: [facility] ca1 21:12 Acuity: ESTRELLITA 3 ca1 21:12 Care prior to arrival: None. ca1 Triage Assessment: 21:18 General: Appears in no apparent distress. uncomfortable, Behavior is agitated. Pain: ca1 Complains of pain in anterior aspect of left upper chest. Historical: - Allergies: 21:18 Codeine; ca1 21:18 PENICILLINS; ca1 - Home Meds: 21:18 Lasix Oral [Active]; ca1 - PMHx: 21:18 Anxiety; Atrial Fib; CAD; cancer - skin; Cancer, Breast; CHF; ca1 - PSHx: 21:18 pacemaker/Defibrillator; breast cancer surg with lymph on right; ca1 - Immunization history:: Adult Immunizations up to date. - Social history:: Smoking status: Patient/guardian denies using tobacco. - Ebola Screening: : No symptoms or risks identified at this time. - Family history:: not pertinent. Screenin:21 Abuse screen: Denies threats or abuse. Denies injuries from another. Nutritional ca1 screening: No deficits noted. Tuberculosis screening: No symptoms or risk factors identified. Fall Risk None identified. Assessment: 21:21 General: Appears in no apparent distress. Behavior is agitated. Pain: Complains of pain ca1 in chest and anterior aspect of left upper chest Pain does not radiate. Pain currently is 9 out of 10 on a pain scale. Neuro: Level of Consciousness is awake, alert, obeys commands, Oriented to person, place, time, situation. Cardiovascular: Heart tones S1 S2 present Capillary refill < 3 seconds Patient's skin is warm and dry. Cardiovascular: Rhythm is Respiratory: Airway is patent Respiratory effort is even, unlabored, Respiratory pattern is regular, symmetrical, Breath sounds are clear bilaterally. GI: Abdomen is flat, non-distended, Bowel sounds present X 4 quads. Abd is soft and non tender X 4 quads. : No deficits noted. No signs and/or symptoms were reported regarding the genitourinary system. EENT: No deficits noted. No signs and/or symptoms were reported regarding the EENT system. Derm: Skin is intact, is healthy with good turgor, Skin is pink, warm \T\ dry. Musculoskeletal: Circulation, motion, and sensation intact. Capillary refill < 3 seconds. 21:30 Reassessment: Pt refused IV insertion after one failed attempt. Notified provider. ca1 22:30 Reassessment: Patient appears in no apparent distress at this time. No changes from ca1 previously documented assessment. Patient and/or family updated on plan of care and expected duration. Pain level reassessed. Patient is alert, oriented x 3, equal unlabored respirations, skin warm/dry/pink. 12/14 00:12 Reassessment: Notified provider that pt requested for EJ IV insertion. ca1 00:19 Reassessment: Patient appears in no apparent distress at this time. Patient is alert, ca1 oriented x 3, equal unlabored respirations, skin warm/dry/pink. 01:17 Reassessment: Patient appears in no apparent distress at this time. Patient is alert, ca1 oriented x 3, equal unlabored respirations, skin warm/dry/pink. Vital Signs: 12/13 21:18 BP 103 / 69; Pulse 81; Resp 19 S; Temp 97.8; Pulse Ox 97% on R/A; Weight 57.15 kg; ca1 Height 5 ft. 1 in. (154.94 cm); Pain 9/10; 22:30 BP 120 / 72; Pulse 75; Resp 18 S; Pulse Ox 98% on R/A; ca1 12/14 00:11 BP 99 / 66; Pulse 90; Resp 18 S; Pulse Ox 95% on R/A; ca1 01:11 BP 95 / 62; Pulse 73; Resp 17 S; Pulse Ox 98% on R/A; ca1 01:17 BP 91 / 67; Pulse 63; Resp 18 S; Pulse Ox 98% on R/A; ca1 02:21 BP 104 / 67; Pulse 81; Resp 18; Pulse Ox 97% ; rv 12/13 21:18 Body Mass Index 23.81 (57.15 kg, 154.94 cm) ca1 ED Course: 12/13 21:12 Patient arrived in ED. ca1 21:15 Triage completed. ca1 21:18 Major Sheridan MD is Attending Physician. adriana 21:18 Arm band placed on right wrist. ca1 21:21 Patient has correct armband on for positive identification. Placed in gown. Bed in low ca1 position. Call light in reach. Side rails up X 1. case monitor on. Pulse ox on. NIBP on. Warm blanket given. 21:28 Emily Camara, RN is Primary Nurse. ca1 21:30 Missed attempt(s): 22 gauge in left forearm. Bleeding controlled, band aid applied, ca1 catheter tip intact. 22:15 XRAY Chest (1 view) In Process Unspecified. EDMS 12/14 00:41 Inserted saline lock: 20 gauge in left EJ, using aseptic technique. ,using aseptic ca1 technique. by Dr. Sheridan. 00:43 Ethel Jacques MD is Hospitalizing Provider. adriana 02:22 No provider procedures requiring assistance completed. Patient admitted, IV remains in rv place. Administered Medications: 12/13 22:17 Not Given (Patient Refused): Ativan 1 mg IVP once ca1 22:17 Not Given (Patient Refused): Ativan 1 mg IVP once ca1 12/14 00:43 Drug: NS 0.9% 1000 ml Route: IV; Rate: 1 bolus; Site: left jugular; ca1 02:17 Follow up: IV Status: Completed infusion; IV Intake: 1000ml rv 00:43 Drug: Rocephin - (cefTRIAXone) 1 grams Route: IVPB; Infused Over: 30 mins; Site: left ca1 jugular; 00:52 Follow up: IV Status: IVP per pharmacy protocol ca1 02:18 Follow up: IV Status: Completed infusion; IV Intake: 10ml rv 00:45 Drug: LaSIX 20 mg Route: PO; ca1 02:20 Follow up: Response: No adverse reaction rv 00:50 Drug: Aspirin 81 mg Route: PO; ca1 02:20 Follow up: Response: No adverse reaction rv 00:51 Drug: Lovenox 40 mg Route: Sub-Q; Site: left lower abdomen; ca1 02:19 Follow up: Response: No adverse reaction rv 00:55 Drug: Zofran 4 mg Route: IVP; Site: left jugular; ca1 02:18 Follow up: Response: No adverse reaction rv 00:57 Drug: morphine 2 mg Route: IVP; Site: left jugular; ca1 02:19 Follow up: Response: No adverse reaction rv 00:58 Drug: XANax Tablet 1 mg Route: PO; ca1 02:18 Follow up: Response: No adverse reaction rv 02:17 Not Given (low bp): morphine 2 mg IVP once rv Intake: 02:17 IV: 1000ml; Total: 1000ml. rv 02:18 IV: 10ml; Total: 1010ml. rv Outcome: 00:45 Decision to Hospitalize by Provider. adriana 02:28 Admitted to Med/surg accompanied by nurse, via wheelchair, room 213, with chart, Report rv called to DANIELLE RN 02:28 Condition: good 02:28 Instructed on the need for admit, Demonstrated understanding of instructions. 02:46 Patient left the ED. Signatures: Dispatcher [employer] EDMajor Long MD MD cha Chretien, Felicia, RN RN Js Tyson RN RN rv Emily Camara RN RN ca1 Corrections: (The following items were deleted from the chart) 12/13 22:48 21:18 BP 103 / 69; Pulse 81bpm; Resp 19bpm; Pulse Ox 97% RA; ca1 ca1
--- NOTE | 2018-12-14 00:46 | EDPHYS ---
Physician Documentation [facility] Name: Lise Loera Age: 58 yrs Sex: Female : 1960 Arrival Date: 12/13/2018 Time: 21:12 Bed 25 Private MD: ED Physician Major Sheridan HPI: 12/13 21:29 This 58 yrs old Female presents to ER via EMS with complaints of anxiety. adriana 12/14 00:39 This 58 yrs old Female presents to ER via EMS with complaints of chest pain adriana and sob, anxious. 12/13 21:29 The patient presents to the emergency department with anxiety, over unknown adriana circumstances. Onset: The symptoms/episode began/occurred today. Past psychiatric history: Prior diagnosis: no previous psychiatric diagnosis known. Associated signs and symptoms: The patient has no apparent associated signs or symptoms. Severity of symptoms: At their worst the symptoms were mild moderate in the emergency department the symptoms are unchanged. It is unknown whether or not the patient has had similar symptoms in the past. Historical: - Allergies: 21:18 Codeine; ca1 21:18 PENICILLINS; ca1 - Home Meds: 21:18 Lasix Oral [Active]; ca1 - PMHx: 21:18 Anxiety; Atrial Fib; CAD; cancer - skin; Cancer, Breast; CHF; ca1 - PSHx: 21:18 pacemaker/Defibrillator; breast cancer surg with lymph on right; ca1 - Immunization history:: Adult Immunizations up to date. - Social history:: Smoking status: Patient/guardian denies using tobacco. - Ebola Screening: : No symptoms or risks identified at this time. - Family history:: not pertinent. ROS: 12/14 00:40 Constitutional: Negative for fever, chills, and weight loss, Eyes: Negative for injury, adriana pain, redness, and discharge, ENT: Negative for injury, pain, and discharge, Neck: Negative for injury, pain, and swelling, Abdomen/GI: Negative for abdominal pain, nausea, vomiting, diarrhea, and constipation, Back: Negative for injury and pain, : Negative for injury, bleeding, discharge, and swelling, MS/Extremity: Negative for injury and deformity, Skin: Negative for injury, rash, and discoloration, Neuro: Negative for headache, weakness, numbness, tingling, and seizure, Allergy/Immunology: Negative for hives, rash, and allergies, Endocrine: Negative for neck swelling, polydipsia, polyuria, polyphagia, and marked weight changes, Hematologic/Lymphatic: Negative for swollen nodes, abnormal bleeding, and unusual bruising. Cardiovascular: Positive for chest pain. Respiratory: Positive for cough, dyspnea on exertion, orthopnea, shortness of breath. Exam: 00:40 Constitutional: This is a well developed, well nourished patient who is awake, alert, adriana and in no acute distress. Head/Face: Normocephalic, atraumatic. Eyes: Pupils equal round and reactive to light, extra-ocular motions intact. Lids and lashes normal. Conjunctiva and sclera are non-icteric and not injected. Cornea within normal limits. Periorbital areas with no swelling, redness, or edema. ENT: Nares patent. No nasal discharge, no septal abnormalities noted. Tympanic membranes are normal and external auditory canals are clear. Oropharynx with no redness, swelling, or masses, exudates, or evidence of obstruction, uvula midline. Mucous membranes moist. Neck: Trachea midline, no thyromegaly or masses palpated, and no cervical lymphadenopathy. Supple, full range of motion without nuchal rigidity, or vertebral point tenderness. No Meningismus. Chest/axilla: Normal chest wall appearance and motion. Nontender with no deformity. No lesions are appreciated. Cardiovascular: Regular rate and rhythm with a normal S1 and S2. No gallops, murmurs, or rubs. Normal PMI, no JVD. No pulse deficits. Abdomen/GI: Soft, non-tender, with normal bowel sounds. No distension or tympany. No guarding or rebound. No evidence of tenderness throughout. Back: No spinal tenderness. No costovertebral tenderness. Full range of motion. Female : Normal external genitalia. Skin: Warm, dry with normal turgor. Normal color with no rashes, no lesions, and no evidence of cellulitis. MS/ Extremity: Pulses equal, no cyanosis. Neurovascular intact. Full, normal range of motion. Neuro: Awake and alert, GCS 15, oriented to person, place, time, and situation. Cranial nerves II-XII grossly intact. Motor strength 5/5 in all extremities. Sensory grossly intact. Cerebellar exam normal. Normal gait. Psych: Awake, alert, with orientation to person, place and time. Behavior, mood, and affect are within normal limits. 00:40 Respiratory: mild respiratory distress is noted, Respirations: labored breathing, that is mild. 00:40 Abdomen/GI: Inspection: abdomen appears normal, Bowel sounds: normal, Palpation: abdomen is soft and non-tender, in all quadrants, Liver: no appreciated palpable abnormalities, Hernia: not appreciated. Vital Signs: 12/13 21:18 BP 103 / 69; Pulse 81; Resp 19 S; Temp 97.8; Pulse Ox 97% on R/A; Weight 57.15 kg; ca1 Height 5 ft. 1 in. (154.94 cm); Pain 9/10; 22:30 BP 120 / 72; Pulse 75; Resp 18 S; Pulse Ox 98% on R/A; ca1 12/14 00:11 BP 99 / 66; Pulse 90; Resp 18 S; Pulse Ox 95% on R/A; ca1 01:11 BP 95 / 62; Pulse 73; Resp 17 S; Pulse Ox 98% on R/A; ca1 01:17 BP 91 / 67; Pulse 63; Resp 18 S; Pulse Ox 98% on R/A; ca1 02:21 BP 104 / 67; Pulse 81; Resp 18; Pulse Ox 97% ; rv 12/13 21:18 Body Mass Index 23.81 (57.15 kg, 154.94 cm) ca1 Procedures: 00:48 Peripheral line: by aseptic technique a peripheral line was placed in the left external adriana jugular vein. MDM: 12/13 21:18 Patient medically screened. [facility] 21:29 Data reviewed: vital signs, nurses notes, lab test result(s), EKG, radiologic studies, [facility] plain films. 12/13 21:28 Order name: Basic Metabolic Panel; Complete Time: 23:52 [facility] 12/13 21:28 Order name: CBC with Diff; Complete Time: 23:52 [facility] 12/13 21:28 Order name: LFT's; Complete Time: 23:52 [facility] 12/13 21:28 Order name: Magnesium; Complete Time: 23:52 [facility] 12/13 21:28 Order name: NT PRO-BNP; Complete Time: 23:52 [facility] 12/13 21:28 Order name: PT-INR; Complete Time: 23:52 [facility] 12/13 21:28 Order name: Troponin (emerg Dept Use Only); Complete Time: 23:52 [facility] 12/13 21:28 Order name: Acetaminophen; Complete Time: 23:52 [facility] 12/13 21:28 Order name: ETOH Level; Complete Time: 23:52 [facility] 12/13 21:28 Order name: Ptt, Activated; Complete Time: 23:52 [facility] 12/13 21:28 Order name: Salicylate; Complete Time: 23:52 [facility] 12/13 21:28 Order name: Urine Drug Screen; Complete Time: 23:52 [facility] 12/13 22:39 Order name: Urine Dipstick--Ancillary (enter results); Complete Time: 23:52 [facility] 12/13 23:54 Order name: Urine Culture [facility] 12/13 21:28 Order name: XRAY Chest (1 view) [facility] 12/14 02:09 Order name: Echo with Doppler [facility] 12/14 02:09 Order name: CBC with Automated Diff [facility] 12/14 02:09 Order name: CBC with Automated Diff [facility] 12/14 02:09 Order name: Comprehensive Metabolic Panel [facility] 12/14 02:09 Order name: Comprehensive Metabolic Panel [facility] 12/14 02:09 Order name: Troponin I [facility] 12/14 02:09 Order name: Troponin I [facility] 12/13 21:28 Order name: EKG; Complete Time: 21:30 [facility] 12/13 21:28 Order name: Cardiac monitoring; Complete Time: 22:12 [facility] 12/13 21:28 Order name: EKG - Nurse/Tech; Complete Time: 22:12 [facility] 12/13 21:28 Order name: IV Saline Lock; Complete Time: 00:43 [facility] 12/13 21:28 Order name: Labs collected and sent; Complete Time: 22:25 [facility] 12/13 21:28 Order name: O2 Per Protocol; Complete Time: 22:12 [facility] 12/13 21:28 Order name: O2 Sat Monitoring; Complete Time: 22:12 [facility] 12/13 21:28 Order name: Urine Dipstick-Ancillary (obtain specimen); Complete Time: 22:24 [facility] 12/14 02:09 Order name: CONS Pharmacy Consult [facility] 12/14 02:09 Order name: CONS Physician Consult [facility] 12/14 02:09 Order name: [facility] Administered Medications: 22:17 Not Given (Patient Refused): Ativan 1 mg IVP once ca1 22:17 Not Given (Patient Refused): Ativan 1 mg IVP once [facility] 12/14 00:43 Drug: NS 0.9% 1000 ml Route: IV; Rate: 1 bolus; Site: left jugular; ca1 02:17 Follow up: IV Status: Completed infusion; IV Intake: 1000ml rv 00:43 Drug: Rocephin - (cefTRIAXone) 1 grams Route: IVPB; Infused Over: 30 mins; Site: left ca1 jugular; 00:52 Follow up: IV Status: IVP per pharmacy protocol ca1 02:18 Follow up: IV Status: Completed infusion; IV Intake: 10ml rv 00:45 Drug: LaSIX 20 mg Route: PO; ca1 02:20 Follow up: Response: No adverse reaction rv 00:50 Drug: Aspirin 81 mg Route: PO; ca1 02:20 Follow up: Response: No adverse reaction rv 00:51 Drug: Lovenox 40 mg Route: Sub-Q; Site: left lower abdomen; ca1 02:19 Follow up: Response: No adverse reaction rv 00:55 Drug: Zofran 4 mg Route: IVP; Site: left jugular; ca1 02:18 Follow up: Response: No adverse reaction rv 00:57 Drug: morphine 2 mg Route: IVP; Site: left jugular; ca1 02:19 Follow up: Response: No adverse reaction rv 00:58 Drug: XANax Tablet 1 mg Route: PO; ca1 02:18 Follow up: Response: No adverse reaction rv 02:17 Not Given (low bp): morphine 2 mg IVP once rv Disposition: 12/14/18 00:45 Hospitalization ordered by Ethel Jacques for Inpatient Admission. Preliminary diagnosis are Anxiety disorder, unspecified, Atrial fibrillation and flutter, Chest pain, unspecified, Cardiomegaly, Unspecified combined systolic (congestive) and diastolic (congestive) heart failure, Abuse of non-psychoactive substances, Bipolar disorder, Urinary tract infection, site not specified. - Bed requested for Telemetry/MedSurg (Inpatient). - Status is Inpatient Admission. fc - Condition is Fair. - Problem is new. - Symptoms have improved. UTI on Admission? No Signatures: Dispatcher [employer] EDMS Sigrid Pappas RN RN mw Anderson, Corey, MD MD cha Chretien, Felicia, RN RN Emily Camara RN RN ca1 Vicente, Ronaldo RN rv Corrections: (The following items were deleted from the chart) 00:12/13 21:29 Constitutional: Negative for fever, chills, and weight loss, Eyes: Negative [facility] for injury, pain, redness, and discharge, ENT: Negative for injury, pain, and discharge, Neck: Negative for injury, pain, and swelling, Cardiovascular: Negative for chest pain, palpitations, and edema, Respiratory: Negative for shortness of breath, cough, wheezing, and pleuritic chest pain, Abdomen/GI: Negative for abdominal pain, nausea, vomiting, diarrhea, and constipation, Back: Negative for injury and pain, : Negative for injury, bleeding, discharge, and swelling, MS/Extremity: Negative for injury and deformity, Skin: Negative for injury, rash, and discoloration, Neuro: Negative for headache, weakness, numbness, tingling, and seizure, Allergy/Immunology: Negative for hives, rash, and allergies, Endocrine: Negative for neck swelling, polydipsia, polyuria, polyphagia, and marked weight changes, Hematologic/Lymphatic: Negative for swollen nodes, abnormal bleeding, and unusual bruising, [facility] 12/14 00:12/13 21:29 Psych: Positive for anxiety, [facility] 12/14 00:12/13 21:29 Constitutional: This is a well developed, well nourished patient who is adriana awake, alert, and in no acute distress. Head/Face: Normocephalic, atraumatic. Eyes: Pupils equal round and reactive to light, extra-ocular motions intact. Lids and lashes normal. Conjunctiva and sclera are non-icteric and not injected. Cornea within normal limits. Periorbital areas with no swelling, redness, or edema. ENT: Nares patent. No nasal discharge, no septal abnormalities noted. Tympanic membranes are normal and external auditory canals are clear. Oropharynx with no redness, swelling, or masses, exudates, or evidence of obstruction, uvula midline. Mucous membranes moist. Neck: Trachea midline, no thyromegaly or masses palpated, and no cervical lymphadenopathy. Supple, full range of motion without nuchal rigidity, or vertebral point tenderness. No Meningismus. Chest/axilla: Normal chest wall appearance and motion. Nontender with no deformity. No lesions are appreciated. Cardiovascular: Regular rate and rhythm with a normal S1 and S2. No gallops, murmurs, or rubs. Normal PMI, no JVD. No pulse deficits. Respiratory: Lungs have equal breath sounds bilaterally, clear to auscultation and percussion. No rales, rhonchi or wheezes noted. No increased work of breathing, no retractions or nasal flaring. Abdomen/GI: Soft, non-tender, with normal bowel sounds. No distension or tympany. No guarding or rebound. No evidence of tenderness throughout. Back: No spinal tenderness. No costovertebral tenderness. Full range of motion. Skin: Warm, dry with normal turgor. Normal color with no rashes, no lesions, and no evidence of cellulitis. MS/ Extremity: Pulses equal, no cyanosis. Neurovascular intact. Full, normal range of motion. Neuro: Awake and alert, GCS 15, oriented to person, place, time, and situation. Cranial nerves II-XII grossly intact. Motor strength 5/5 in all extremities. Sensory grossly intact. Cerebellar exam normal. Normal gait. [facility] 12/14 00:39 12/13 21:29 Psych: Behavior/mood is anxious, Affect is animated, Oriented to person, adriana place, time, Patient having thoughts of suicide. Judgement / Insight is normal. Delusions/hallucinations are not present. [facility] 12/14 00:45 00:45 Hospitalization Ordered by Ethel Jacques MD for Inpatient Admission. Preliminary [facility] diagnosis is Anxiety disorder, unspecified; Atrial fibrillation and flutter; Chest pain, unspecified; Cardiomegaly; Unspecified combined systolic (congestive) and diastolic (congestive) heart failure. Bed requested for Telemetry/MedSurg (Inpatient). Status is Inpatient Admission. Condition is Fair. Problem is new. Symptoms have improved. UTI on Admission? No. adriana 00:46 00:45 12/14/2018 00:45 Hospitalization Ordered by Ethel Jacques MD for Inpatient adriana Admission. Preliminary diagnosis is Anxiety disorder, unspecified; Atrial fibrillation and flutter; Chest pain, unspecified; Cardiomegaly; Unspecified combined systolic (congestive) and diastolic (congestive) heart failure; Abuse of non-psychoactive substances; Bipolar disorder. Bed requested for Telemetry/MedSurg (Inpatient). Status is Inpatient Admission. Condition is Fair. Problem is new. Symptoms have improved. UTI on Admission? No. adriana 00:53 00:46 12/14/2018 00:45 Hospitalization Ordered by Ethel Jacques MD for Inpatient Admission. Preliminary diagnosis is Anxiety disorder, unspecified; Atrial fibrillation and flutter; Chest pain, unspecified; Cardiomegaly; Unspecified combined systolic (congestive) and diastolic (congestive) heart failure; Abuse of non-psychoactive substances; Bipolar disorder; Urinary tract infection, site not specified. Bed requested for Telemetry/MedSurg (Inpatient). Status is Inpatient Admission. Condition is Fair. Problem is new. Symptoms have improved. UTI on Admission? No. adriana 02:46 00:53 12/14/2018 00:45 Hospitalization Ordered by Ethel Jacques MD for Inpatient Admission. Preliminary diagnosis is Anxiety disorder, unspecified; Atrial fibrillation and flutter; Chest pain, unspecified; Cardiomegaly; Unspecified combined systolic (congestive) and diastolic (congestive) heart failure; Abuse of non-psychoactive substances; Bipolar disorder; Urinary tract infection, site not specified. Bed requested for Telemetry/MedSurg (Inpatient). Status is Inpatient Admission. Condition is Fair. Problem is new. Symptoms have improved. UTI on Admission? No. mw
[2018-12-14] MEDS ORDERED: FUROSEMIDE 20 MG TABLET ONE (00:58)
[2018-12-14] MEDS ORDERED: ASPIRIN EC 81 MG TAB PO ONE (00:59)
[2018-12-14] MEDS ORDERED: ENOXAPARIN 40 MG/0.4 ML SQ ONE (00:59)
[2018-12-14] MEDS ORDERED: ALPRAZOLAM 1 MG TABLET ONE (01:10)
[2018-12-14] MEDS ORDERED: MORPHINE 4 MG/ML SYR ONE (01:10)
[2018-12-14] MEDS ORDERED: ONDANSETRON 4 MG/2 ML VIAL ONE (01:11)
[2018-12-14] MEDS ORDERED: ONDANSETRON 4 MG/2 ML VIAL IV PRN (02:03)
[2018-12-14] MEDS ORDERED: ACETAMINOPHEN 500 MG TAB PO PRN ×2 (02:03)
[2018-12-14] MEDS ORDERED: TEMAZEPAM 15 MG CAP PO PRN (02:10)
[2018-12-14 03:15] VITALS: BMI 23.8
[2018-12-14] MEDS: MORPHINE 2 MG/ML SYR IV PRN ×2 (04:57→09:46)
[2018-12-14] MEDS ORDERED: FUROSEMIDE 40 MG/4 ML VIAL IV SCH (09:00)
[2018-12-14] MEDS ORDERED: METOPROLOL TAR 50 MG TAB PO SCH (09:00)
--- NOTE | 2018-12-14 09:39 | RAD REPORT ---
EXAM DESCRIPTION: Manpreet Single View12/13/2018 10:15 pm CLINICAL HISTORY: sob COMPARISON: April 2018 FINDINGS: The lungs appear clear of acute infiltrate. The heart is moderately to markedly enlarged. Pacemaker leads are in place. IMPRESSION: No acute abnormalities displayed
[2018-12-14 09:56] VITALS: BP 92/55
[2018-12-14 10:04] VITALS: TEMP 98.3
--- NOTE | 2018-12-14 10:28 | EKG ---
Test Date: 2018-12-13 Test Time: 21:35:45 Accounting Associate: JULIETTE MEASUREMENT RESULTS: Intervals: Rate: 79 MO: 134 QRSD: 168 QT: 474 QTc: 543 [place]: P: 17 MO: 134 QRS: -60 T: -8 INTERPRETIVE STATEMENTS: Atrial-sensed ventricular-paced rhythm Biventricular pacemaker detected Abnormal ECG Compared to ECG 05/04/2018 20:19:41 No significant changes Electronically Signed On 12-14-18 10:28:04 CDT by Juma Dickey
--- NOTE | 2018-12-14 11:46 | P.SSS ---
Patient History Date of Service: 12/14/18 Reason for admission: Chest palpitation History of Present Illness: 58-year-old female with significant past medical history of atrial fibrillation , congestive heart failure, and significant psych history as well who presented to the ED stating that she was having an anxiety attack. Patient stated that she was having some chest palpitation because of her son at the house and thus decided to come to the ER. Patient was admitted to the hospital for AFib with RVR and CHF exacerbation. Allergies Penicillins Allergy (Intermediate, Verified 12/14/18 03:10) Hives/Rash codeine Allergy (Verified 12/14/18 03:10) Unknown Home Medications: ALPRAZolam [Alprazolam] 1 tab PO TID 12/14/18 Amiodarone HCl [Cordarone*] 1 tab PO DAILY 12/14/18 Aspirin [Adult Low Dose Aspirin EC] 2 tab PO DAILY 12/14/18 Furosemide 3 tab PO BID 12/14/18 Potassium Chloride 1 tab PO DAILY 12/14/18 - Past Medical/Surgical History Has patient received pneumonia vaccine in the past: No Diabetic: No -: anxiety -: AFIB -: CAD -: skin ca -: breast ca -: CHF -: cholecystectomy -: pacemaker/ defib -: R breast surg - Social History Smoking Status: Never smoker Alcohol use: No CD- Drugs: No Caffeine use: No Place of Residence: Home Review of Systems 10-point ROS is otherwise unremarkable Physical Examination - Vital Signs Temperature: 98.3 F Blood Pressure: 92/55 Pulse: 69 Respirations: 17 Pulse Ox (%): 94 - Physical Exam General: Alert, In no apparent distress HEENT: Atraumatic, PERRLA, Mucous membr. moist/pink, EOMI, Sclerae nonicteric Neck: Supple, 2+ carotid pulse no bruit, No LAD, Without JVD or thyroid abnormality Respiratory: Clear to auscultation bilaterally, Normal air movement Cardiovascular: Regular rate/rhythm, Normal S1 S2 Gastrointestinal: Normal bowel sounds, No tenderness Musculoskeletal: No tenderness Integumentary: No rashes Neurological: Normal gait, Normal speech, Normal strength at 5/5 x4 extr, Normal tone, Normal affect Lymphatics: No axilla or inguinal lymphadenopathy - Studies Laboratory Data (last 24 hrs) 12/13/18 22:00: PT 12.5, INR 1.06, APTT 28.0 04/26/19 22:00: WBC 5.4, Hgb 12.6, Hct 38.0, Plt Count 152 12/13/18 22:00: Sodium 143, Potassium 3.8, BUN 35 H, Creatinine 2.46 H, Glucose 109 H, Magnesium 2.5 H, Total Bilirubin 0.5, AST 34, ALT 36, Alkaline Phosphatase 190 H - Diagnosis (Problem(s)) (1) Atrial fibrillation Current Visit: Yes Status: Chronic Plan: AFib with RVR Qualifiers: Atrial fibrillation type: chronic Qualified Code(s): I48.2 - Chronic atrial fibrillation (2) CHF exacerbation Current Visit: Yes Status: Chronic Plan: Acute CHF exacerbation Qualifiers: Heart failure type: diastolic Qualified Code(s): I50.33 - Acute on chronic diastolic (congestive) heart failure (3) Anxiety attack Current Visit: Yes Status: Acute Treatment Summary: Overall during the hospital stay patient remained stable Patient was initially admitted to the hospital for atrial fibrillation with RVR and CHF exacerbation. Patient was started on Lasix IV here in the hospital along with her medication for atrial fibrillation at home. Patient stated that she has not been taking her medicine for AFib at home for past couple of days due to having anxiety at home. Cardiology was consulted who recommended the patient be restarted back on her medication and be discharged home under stable condition have outpatient follow up with cardiology to repeat an echocardiogram done and follow up with today's symptoms. Patient did well overall while here in the hospital. Rate was controlled. Patient thus was discharged home under stable condition was asked to continue taking her CHF medication of Lasix and was also asked to continue taking her atrial fibrillation medication which was amiodarone and aspirin. Patient was also asked to follow up with primary care provider along with cardiology in about 1-2 days post discharge. Patient demonstrate understanding and thus was discharged home under stable condition - Disposition Disposition: ROUTINE DISCHARGE Condition: GOOD Patient Discharge Instructions: Please f.u with PCP and Cardiology in 1 to 2 days post discharge. No new medication Diet: Regular Activity: Ad hugo
--- NOTE | 2018-12-14 14:34 | P.HP ---
Certification for Inpatient Patient admitted to: Observation With expected LOS: <2 Midnights Patient will require the following post-hospital care: None Practitioner: I am a practitioner with admitting privileges, knowledge of patient current condition, hospital course, and medical plan of care. Services: Services provided to patient in accordance with Admission requirements found in Title 42 Section 412.3 of the Code of Federal Regulations Patient History Date of Service: 12/14/18 Reason for admission: Chest palpitation; dyspnea History of Present Illness: Patient is a 58-year-old female who came to the hospital with congestive heart failure. Patient was short of breath and diaphoretic. Patient states she also has a history of COPD. She follows up with her senior network security architect Dr. Segovia. However, when I saw her she still appear to be feeling much better. She did have some basilar crackles but overall clinically she appears to be doing well. We will go ahead and admit her for observation. She has a pacemaker in place. We can discuss with Cardiology if this needs to be interrogated. But otherwise as far as her respiratory status goes it is improved after diuresing in the ER. Will continue on the floor and hopefully discharge in the next 24 hrs. Allergies Penicillins Allergy (Intermediate, Verified 12/14/18 03:10) Hives/Rash codeine Allergy (Verified 12/14/18 03:10) Unknown Home Medications: ALPRAZolam [Alprazolam] 1 tab PO TID 12/14/18 Amiodarone HCl [Cordarone*] 1 tab PO DAILY 12/14/18 Aspirin [Adult Low Dose Aspirin EC] 2 tab PO DAILY 12/14/18 Furosemide 3 tab PO BID 12/14/18 Potassium Chloride 1 tab PO DAILY 12/14/18 - Past Medical/Surgical History Has patient received pneumonia vaccine in the past: No Diabetic: No -: anxiety -: AFIB -: CAD -: skin ca -: breast ca -: CHF -: cholecystectomy -: pacemaker/ defib -: R breast surg - Family History Father Family History: Reviewed- Non-Contributory - Social History Smoking Status: Never smoker Alcohol use: No CD- Drugs: No Caffeine use: No Place of Residence: Home Review of Systems 10-point ROS is otherwise unremarkable Physical Examination - Vital Signs Temperature: 98.3 F Blood Pressure: 92/55 Pulse: 69 Respirations: 17 Pulse Ox (%): 94 - Physical Exam General: Alert, In no apparent distress, Oriented x3 HEENT: Atraumatic, PERRLA, Mucous membr. moist/pink, EOMI, Sclerae nonicteric Neck: Supple, 2+ carotid pulse no bruit, No LAD, Without JVD or thyroid abnormality Respiratory: Crackles/rales Cardiovascular: Regular rate/rhythm, Normal S1 S2, No murmurs Gastrointestinal: Normal bowel sounds, Soft and benign, Non-distended, No tenderness Musculoskeletal: No clubbing, No swelling, No tenderness Integumentary: No rashes Neurological: Normal gait, Normal speech, Normal strength at 5/5 x4 extr, Normal tone, Sensation intact, Cranial nerves 3-12 intact, Normal affect Lymphatics: No axilla or inguinal lymphadenopathy - Studies Laboratory Data (last 24 hrs) 12/13/18 22:00: PT 12.5, INR 1.06, APTT 28.0 12/13/18 22:00: WBC 5.4, Hgb 12.6, Hct 38.0, Plt Count 152 12/13/18 22:00: Sodium 143, Potassium 3.8, BUN 35 H, Creatinine 2.46 H, Glucose 109 H, Magnesium 2.5 H, Total Bilirubin 0.5, AST 34, ALT 36, Alkaline Phosphatase 190 H Assessment & Plan - Problems (Diagnosis) (1) Anxiety attack Status: Acute (2) Atrial fibrillation Status: Chronic Qualifiers: Atrial fibrillation type: chronic Qualified Code(s): I48.2 - Chronic atrial fibrillation (3) CHF exacerbation Status: Chronic Qualifiers: Heart failure type: diastolic Qualified Code(s): I50.33 - Acute on chronic diastolic (congestive) heart failure - Plan 1. Echocardiogram if it has not been performed in the last 6 months; otherwise this can be done as an outpatient if it is unavailable today 2. Continue ARB 3. Continue Beta jessica; rate controlled; anti-platelet therapy and no anticoagulation recommended by the senior network security architect because of an anaphylactic reaction 4. Cardiology consultation 5. Aggressive diuresis 6. Strict I's and O's 7. Repeat CXR 8. Daily weights 9. Education regarding diet and treatment of congestive heart failure Discharge Plan: Home Plan to discharge in: 24 Hours - Advance Directives Does patient have a Living Will: No Does patient have a Durable POA for Healthcare: No - Code Status/Comfort Care Code Status Assessed: Yes Code Status: Full Code Critical Care: No Time Spent Managing PTS Care (In Minutes): 45
[2018-12-14 15:02] VITALS: O2SAT 93
[2018-12-14] MEDS ORDERED: ENOXAPARIN 60 MG/0.6 ML SQ SCH (21:00)
[2018-12-15] MEDS ORDERED: ASPIRIN EC 81 MG TAB PO SCH (09:00)
[2018-12-15] MEDS ORDERED: AMIODARONE HCL 200 MG TAB PO SCH (09:00)
--- NOTE | 2018-12-15 14:02 | CON ---
Date of Consultation: 12/14/2018 Reason For Consultation: Atrial fibrillation. History Of Present Illness: Ms. Mari is a 58-year-old woman. She is a patient of Dr. Segovia in my office. She has had a history of atrial fibrillation before for which she takes amiodarone. She has a history of congestive heart failure that is a nonischemic dilated cardiomyopathy with normal co ronaries. She is status post AICD and pacemaker. Also, has a history of anxiety and history of el st cancer in the past. She apparently is allergic to anticoagulants according to her, and so she is not taking any anticoagulants for her atrial fibrillation except for aspirin. The main reason she re ally came in was an anxiety attack according to her and some shortness of breath. Her atrial fibrill ation is chronic. She is not feeling back to normal. Denied any chest pain, and denied any syncope. She denied any palpitations. Allergies: PENICILLIN, CODEINE, AND ELIQUIS. Review of Systems: Negative. Social History: Negative. Family History: Noncontributory. Medications: At home include Entresto, Xanax, amiodarone, aspirin, potassium, and Lasix 60 b.i.d. Physical Examination: General: She was anxious, but no acute distress. Denied any shortness of breath or chest pain. She was in a paced rhythm with underlying atrial fibrillation. HEENT: Negative. Neck: Supple without any bruit, lymphadenopathy, JVD, or thyromegaly. Chest: Reveals some rales, both bases. Cardiac: Revealed a regular rhythm and rate without any gallops, murmurs, or rubs. Abdomen: Benign. Extremities: Revealed only trace edema. Diagnostic Data: Creatinine of 2.36. Her BNP was 13,694. Urinalysis showed positive benzodiazepine and positive THC in the urine. Troponin was negative. Impression And Plan: 1.Anxiety. 2.Chronic atrial fibrillation, paced rhythm. 3.Congestive heart failure with normal coronaries, chronic systolic, status post automatic implantab le cardioverter-defibrillator and pacemaker. 4.History of breast cancer. 5.Renal insufficiency, stage 4. The patient is asymptomatic at this point. I feel comfortable with her going home. She has had an appointment to check her defibrillator on the January 11. She should also get an appointment and echocardiogram, and she needs her creatinine followed rather carefully. We may have to back off the Entresto down the road. We will continue the amiodarone otherwise. DON/MODL Voice ID: [id number] Report ID: [id number]
--- NOTE | 2018-12-16 07:11 | EKG ---
Test Date: 2018-12-14 Test Time: 04:11:26 Interventional Physiatrist: RT Arroyo MEASUREMENT RESULTS: Intervals: Rate: 63 DC: 126 QRSD: 192 QT: 572 QTc: 585 [place]: P: 49 DC: 126 QRS: -77 T: -31 INTERPRETIVE STATEMENTS: Electronic ventricular pacemaker Compared to ECG 12/13/2018 21:35:45 Atrial-sensed ventricular-paced complex(es) or rhythm no longer present Electronically Signed On 12-16-18 07:10:31 CDT by Stephen Segovia
== END 2018-12-14 13:40 | disposition home or self-care (01) ==
LOC: ER 21:07 → INTOOBSV 12-14 02:04 → ERHOLD 12-14 02:04 → 2ND 12-14 02:32
PROVIDERS: ADMIT Hospitalist; ATTEND Hospitalist
DX: I48.2 Chronic atrial fibrillation (principal); I50.33 Acute on chronic diastolic (congestive) heart failure; F41.9 Anxiety disorder, unspecified; I25.10 Atherosclerotic heart disease of native coronary artery without angina pectoris; Z85.3 Personal history of malignant neoplasm of breast; Z95.810 Presence of automatic (implantable) cardiac defibrillator; Z88.0 Allergy status to penicillin
CPT/HCPCS: 96361; 93005 ×2; 87088; 85025; 87086; 80048; 36415; 80320; 83735; 80329 ×2; 85610; 80076; 80307 ×8; 85730; 81003; 84484 ×2; 83880; 71045; 97162; 96375; 96372; 96374; 99285; J1940; J1650; J2270 ×2; J0696; J7030; J2405 ×2; G0378 ×2

== ENCOUNTER 2018-12-16 22:43 | Emergency (ER) | payer OTHER ==
--- OUTSIDE RECORDS SUMMARY | 2018-12-16 22:45 | XMS REPORT | Clinical Summary ---
:1960 Author Organization [facility] Address [address] [place] [id number] Care Team Providers Name Role Phone Asked, [...] INFLUENZA VACCINE 03/20/2019 Implants Implanted Type Area Reed Or Wind Instrument Repairer Device Shelf Model / Identifier Expiration Serial / Date Lot Generator Quadra Assura Mp Chemical Dependency Therapist-D - [id number] - [id number] Cardiac Pacemaker N/A : [employer] 08/19/2018 [id number] / Implanted: Qty: 1 on 10/11/2016 by Kiley Carias Jr., MD Generators N/A MEDICAL [id number] / [id number] Quartet, Lv Leads, Model 1458q-86 - [id number] - [id number] Cardiac Pacing N/A : [employer]WOA 05/19/2019 [id number] 86 / Implanted: Qty: 1 on 10/11/2016 by Kiley Carias Jr., MD Leads or N/A MEDICAL [id number] / Electrodes or [id number] Accessories Tendril Sts, Pacemaker Leads, Model 8tc/52 - [id number] - [id number] Cardiac Pacing N/A: [employer]WOA 07/19/2019 [id number]/52 / Implanted: Qty: 1 on 10/11/2016 by Kiley Carias Jr., MD Leads or N/A MEDICAL [id number] / Electrodes or [id number] Accessories Envlp Impl Crdvrtr Dfb Antbctrl Fully Resorb Lg Aigissrx R - [id number] Cardiovascular N/A: [employer] [id number] / Implanted: 10/11/2016 (Quantity not on file) Implants N/A / Results Not on fileafter 12/15/2017 Insurance Payer Benefit Plan / Group Subscriber ID Type Phone Address MEDICARE MEDICARE PART A AND B xxxxxxxxxx Medicare [place], [place] Advance Directives Patient has advance care planning documents, and code status on file. For more information, please contact:[place] [address] Code Status Date Activated Date Inactivated Comments DNR 04/17/2017 10:02 AM 04/19/2017 4:40 PM Code Status decision reached by: Patient Full Code 04/07/2017 1:50 AM 04/17/2017 10:02 AM Code Status decision reached by: Patient
--- OUTSIDE RECORDS SUMMARY | 2018-12-16 22:45 | XMS REPORT ---
:1960 [facility] Address [address] [place] [address] Dr. Damon [address] [place] [id number] Care Team Providers Name Role Phone Unavailable Unavailable Unavailable Problems This patient has no known problems. Allergies, Adverse Reactions, Alerts This patient has no known allergies or adverse reactions. Medications This patient has no known medications.
[2018-12-16 23:54] LABS: Urine Blood TRACE (NEG); Urine Glucose NEGATIVE (NEG); Urine Protein NEGATIVE (NEG); Urine Specific Gravity 1.015 (1.005-1.030); Urine pH 6.5 (5.0-7.0)
[2018-12-17 00:11] LABS: Barbiturates NEGATIVE (NEGATIVE); Benzodiazepines POSITIVE (NEGATIVE); Cocaine NEGATIVE (NEGATIVE); METHAMPHETAM NEGATIVE (NEGATIVE); Methadone NEGATIVE (NEGATIVE); Opiates NEGATIVE (NEGATIVE); Phencyclidine NEGATIVE (NEGATIVE); THC Cannibis POSITIVE (NEGATIVE)
[2018-12-17] MEDS ORDERED: ONDANSETRON 4 MG (ODT) TAB ONE (00:19)
[2018-12-17 00:32] LABS: Absolute Lymphocytes (CBC) 1.5 K/uL (0.7-4.9); Absolute Monocytes 0.9 K/uL (0.1-1.3); Absolute Neutrophil 4.5 K/uL (1.8-8.0); Eosinophils % 1.2 % (0-4.4); Hematocrit 37.2 % (36.0-45.0); Lymphocytes % 21.1 % (15.3-44.8); MPV 10.4 fL (7.6-11.3); Monocytes % 12.6 % (3.3-12.3); RBC Red Blood Cell Count 4.07 M/uL (3.86-4.86)
[2018-12-17 00:41] LABS: Protime INR 1.04
[2018-12-17] MEDS ORDERED: KETOROLAC 30 MG/ML INJ ONE (00:41)
[2018-12-17 00:53] LABS: ALT/SGPT 45 U/L (12-78); AST/SGOT 40 U/L (15-37); Alkaline Phosphatase 187 U/L (45-117); BUN Blood Urea Nitrogen 33 mg/dL (7-18); Bicarbonate 32 mmol/L (21-32); Bilirubin Direct 0.1 mg/dL (0-0.2); Bilirubin Total 0.5 mg/dL (0.2-1.0); Glucose Level 95 mg/dL (74-106); Magnesium 2.4 mg/dL (1.8-2.4); NT PRO-BNP 10665 pg/mL (<125); Potassium 3.4 mmol/L (3.5-5.1); Protein, Total 7.7 g/dL (6.4-8.2); Sodium Level 140 mmol/L (136-145); Troponin (Emerg Dept Use Only) < 0.02 ng/mL (0.0-0.045)
--- NOTE | 2018-12-17 01:02 | EDPHYS ---
Physician Documentation [facility] Name: Lise Loera Age: 58 yrs Sex: Female : 1960 Arrival Date: 12/16/2018 Time: 22:43 Bed 25 Private MD: ED Physician Pierre Roldan HPI: 12/16 23:41 This 58 yrs old Female presents to ER via EMS with complaints of chest pain. tw4 23:41 The patient or guardian reports chest pain that is located primarily in the anterior tw4 chest wall, left. Onset: today. The pain does not radiate. Associated signs and symptoms: The patient has no apparent associated signs or symptoms. The chest pain is described as dull. Duration: The patient or guardian reports a single episode. Severity of pain: At its worst the pain was moderate in the emergency department the pain is unchanged. Historical: - Allergies: 22:47 Codeine; rv 22:47 PENICILLINS; rv - Home Meds: 22:47 amlodipine oral once daily [Active]; Iron CR Oral daily [Active]; Lasix Oral [Active]; rv Potassium Chloride Oral once daily [Active]; Xanax 2 mg Oral tab 1 tab 3 times per day [Active]; - PMHx: 22:47 Anxiety; Atrial Fib; CAD; cancer - skin; Cancer, Breast; CHF; ADD/ADHD; rv - PSHx: 22:47 Unable to obtain; rv - Immunization history:: Adult Immunizations up to date. - Social history:: Smoking status: . - Ebola Screening: : No symptoms or risks identified at this time. ROS: 23:41 Constitutional: Negative for fever, chills, and weight loss, Eyes: Negative for injury, tw4 pain, redness, and discharge, Respiratory: Negative for shortness of breath, cough, wheezing, and pleuritic chest pain, Abdomen/GI: Negative for abdominal pain, nausea, vomiting, diarrhea, and constipation, Back: Negative for injury and pain, MS/Extremity: Negative for injury and deformity, Skin: Negative for injury, rash, and discoloration. 23:41 Cardiovascular: Positive for chest pain, Negative for edema, orthopnea, palpitations, paroxysmal nocturnal dyspnea. Exam: 23:41 Constitutional: This is a well developed, well nourished patient who is awake, alert, tw4 and in no acute distress. Head/Face: Normocephalic, atraumatic. Chest/axilla: Normal chest wall appearance and motion. Nontender with no deformity. No lesions are appreciated. Cardiovascular: Regular rate and rhythm with a normal S1 and S2. No gallops, murmurs, or rubs. Normal PMI, no JVD. No pulse deficits. Respiratory: Lungs have equal breath sounds bilaterally, clear to auscultation and percussion. No rales, rhonchi or wheezes noted. No increased work of breathing, no retractions or nasal flaring. Abdomen/GI: Soft, non-tender, with normal bowel sounds. No distension or tympany. No guarding or rebound. No evidence of tenderness throughout. Back: No spinal tenderness. No costovertebral tenderness. Full range of motion. MS/ Extremity: Pulses equal, no cyanosis. Neurovascular intact. Full, normal range of motion. Neuro: Awake and alert, GCS 15, oriented to person, place, time, and situation. Cranial nerves II-XII grossly intact. Motor strength 5/5 in all extremities. Sensory grossly intact. Cerebellar exam normal. Normal gait. Vital Signs: 22:48 BP 108 / 71; Pulse 68; Resp 17; Temp 98.1; Pulse Ox 98% on R/A; rv 12/17 00:57 BP 107 / 62; Pulse 83; Resp 18; Pulse Ox 95% on R/A; mg2 MDM: 12/16 22:53 Patient medically screened. tw4 12/17 05:54 Differential diagnosis: abnormal EKG, pulmonary embolus, stable angina, thoracic aortic tw4 disection. Data reviewed: vital signs, nurses notes. Data interpreted: Pulse oximetry: Interpretation: normal. Counseling: I had a detailed discussion with the patient and/or guardian regarding: the historical points, exam findings, and any diagnostic results supporting the discharge/admit diagnosis. Refusal of service: The patient/guardian displays adequate decision making capability and despite a detailed discussion of alternatives, benefits, risks, and consequences refuses: Admission to the hospital for further work-up and treatment, Medications. 05:54 ED course: Pt was requesting pain medications prior to initial workup. Pt had bizarre tw4 behavior that was witnessed by staff. Shouting and screaming for minor requests. Pt was recently seen in the ED for CP 2 days ago and admitted and had a negative workup. Pt was offered Toradol for pain and refused stating that she wanted morphine. Pt stated that since she not is receiving Morphine she is leaving. 12/16 22:47 Order name: Basic Metabolic Panel 12/16 22:47 Order name: CBC with Diff 12/16 22:47 Order name: LFT's 12/16 22:47 Order name: Magnesium 12/16 22:47 Order name: NT PRO-BNP 12/16 22:47 Order name: PT-INR 12/16 22:47 Order name: Troponin (emerg Dept Use Only) 12/16 22:47 Order name: XRAY Chest (1 view) 12/16 22:47 Order name: EKG; Complete Time: 22:48 12/16 23:30 Order name: Alcohol Level 12/16 23:30 Order name: Urine Drug Screen 12/16 23:52 Order name: Urine Dipstick--Ancillary (enter results) [facility] 12/16 22:47 Order name: Cardiac monitoring; Complete Time: 00:20 12/16 22:47 Order name: EKG - Nurse/Tech; Complete Time: 00:20 12/16 22:47 Order name: IV Saline Lock; Complete Time: 00:20 12/16 22:47 Order name: Labs collected and sent; Complete Time: 00:20 12/16 22:47 Order name: O2 Per Protocol; Complete Time: 00:20 12/16 22:47 Order name: O2 Sat Monitoring; Complete Time: 00:20 EC/29 23:42 Rate is 62 beats/min. Rhythm is regular. QRS [place] is Normal. IA interval is normal. QRS tw4 interval is normal. QT interval is normal. T waves are Inverted in leads V3, V5, V6. T waves are Flattened. No ST changes noted. Clinical impression: Abnormal EKG without significant change and No evidence of ischemia. Interpreted by me. Reviewed by me. Administered Medications: 12/17 01:03 Not Given (Patient Refused): Aspirin 81 mg PO once rv 01:03 Not Given (Patient Refused): TORadol 30 mg IVP once rv Disposition: 04/30/19 01:02 Patient left the facility after being seen by provider. Preliminary diagnosis are Cannabis abuse, Chest pain, unspecified, Substance abuse. - Patient left due to unknown. - Condition is Stable. - Problem is an ongoing problem. - Symptoms are unchanged. Signatures: Dispatcher [employer] EDPierre Harden MD MD tw4 Js Tyson, RN RN rv Corrections: (The following items were deleted from the chart) 01:04 01:02 12/17/2018 01:02 Patient left the facility after being seen by provider. rv Preliminary diagnosis is Cannabis abuse; Chest pain, unspecified; Substance abuse. Reason stated they are leaving due to unknown. Condition is Stable. Problem is an ongoing problem. Symptoms are unchanged. tw4
--- NOTE | 2018-12-17 01:02 | ER ---
Nurse's Notes [facility] Name: Lise Loera Age: 58 yrs Sex: Female : 1960 Arrival Date: 12/16/2018 Time: 22:43 Bed 25 Private MD: Diagnosis: Cannabis abuse;Chest pain, unspecified;Substance abuse Presentation: 12/16 22:44 Presenting complaint: Patient states: PATIENT WAS HERE SUNDAY FOR THE SAME REASON. rv ADMITTED FOR UTI. TODAY COMPLAINED AGAIN FOR CHEST PAIN. NON RADIATING. ASPIRIN GIVEN BY EMS. Transition of care: patient was not received from another setting of care. Onset of symptoms was December 16, 2018 at 22:15. Risk Assessment: Do you want to hurt yourself or someone else? Patient reports no desire to harm self or others. Initial Sepsis Screen: Does the patient meet any 2 criteria? No. Patient's initial sepsis screen is negative. Does the patient have a suspected source of infection? No. Patient's initial sepsis screen is negative. Care prior to arrival: None. 22:44 Method Of Arrival: EMS: [facility] 22:44 Acuity: ESTRELLITA 3 rv Triage Assessment: 22:49 General: Appears in no apparent distress. comfortable, Behavior is cooperative, crying, rv restless. Pain: Complains of pain in chest. EENT: No signs and/or symptoms were reported regarding the EENT system. Neuro: Level of Consciousness is awake, alert, obeys commands, Oriented to person, place, time, situation. Cardiovascular: Capillary refill < 3 seconds. Respiratory: Airway is patent. GI: No signs and/or symptoms were reported involving the gastrointestinal system. : No signs and/or symptoms were reported regarding the genitourinary system. Derm: Skin is intact. Musculoskeletal: No signs and/or symptoms reported regarding the musculoskeletal system. Historical: - Allergies: 22:47 Codeine; rv 22:47 PENICILLINS; rv - Home Meds: 22:47 amlodipine oral once daily [Active]; Iron CR Oral daily [Active]; Lasix Oral [Active]; rv Potassium Chloride Oral once daily [Active]; Xanax 2 mg Oral tab 1 tab 3 times per day [Active]; - PMHx: 22:47 Anxiety; Atrial Fib; CAD; cancer - skin; Cancer, Breast; CHF; ADD/ADHD; rv - PSHx: 22:47 Unable to obtain; rv - Immunization history:: Adult Immunizations up to date. - Social history:: Smoking status: . - Ebola Screening: : No symptoms or risks identified at this time. Screenin:51 Abuse screen: Denies threats or abuse. Denies injuries from another. Nutritional rv screening: No deficits noted. Tuberculosis screening: No symptoms or risk factors identified. Fall Risk None identified. Assessment: 12/17 00:30 Reassessment: Patient appears in no apparent distress at this time. Patient and/or rv family updated on plan of care and expected duration. Pain level reassessed. Patient is alert, oriented x 3, equal unlabored respirations, skin warm/dry/pink. patient refused toradol. asking for morphine. referred to Dr Roldan. 00:59 Reassessment: patient is agitated. Katy went to the room, took the patient's IV rv catheter. patient eloped. Vital Signs: 12/16 22:48 BP 108 / 71; Pulse 68; Resp 17; Temp 98.1; Pulse Ox 98% on R/A; rv 12/17 00:57 BP 107 / 62; Pulse 83; Resp 18; Pulse Ox 95% on R/A; mg2 ED Course: 12/16 22:43 Patient arrived in ED. rv 22:46 Triage completed. rv 22:51 Patient has correct armband on for positive identification. Bed in low position. Call rv light in reach. Side rails up X 1. orderly on. Pulse ox on. NIBP on. 22:51 Arm band placed on right wrist. Patient placed in an exam room, on a stretcher, on rv mixer runner, on pulse oximetry, Patient notified of wait time. 22:52 Js Tyson, DAMASO is Primary Nurse. rv 22:52 EKG completed in triage. Results shown to MD. rv 22:53 Pierre Roldan MD is Attending Physician. tw4 23:26 X-ray completed. Portable x-ray completed in exam room. Patient tolerated procedure kw well. 23:27 XRAY Chest (1 view) In Process Unspecified. EDMS 23:42 No provider procedures requiring assistance completed. mg2 23:51 Missed attempt(s): 22 gauge in left upper arm. rv 12/17 00:20 Initial lab(s) drawn, by me, sent to lab. Missed attempt(s): 22 gauge in left foot. bb Bleeding controlled, band aid applied, catheter tip intact. Inserted saline lock: 18 gauge in left upper arm, using aseptic technique. Blood collected. 01:04 IV discontinued, intact, bleeding controlled, No redness/swelling at site. Pressure rv dressing applied. Administered Medications: 01:03 Not Given (Patient Refused): Aspirin 81 mg PO once rv 01:03 Not Given (Patient Refused): TORadol 30 mg IVP once rv Outcome: 01:00 Eloped from patient exam room, after seeing physician patient refused treatment. walked rv out from the room. 01:00 Condition: stable 01:04 Patient left the ED. rv Signatures: Dispatcher [employer] EDMS Katy Cameron RN RN Olive Hammond Terrence, MD MD tw4 Malvin Shepherd RN RN mg2 Js Tyson RN RN rv
[2018-12-17 01:08] VITALS: TEMP 98.1
[2018-12-17 01:09] VITALS: BP 107/62; O2SAT 95
--- NOTE | 2018-12-17 07:03 | RAD REPORT ---
EXAM DESCRIPTION: RAD - Chest Single View - 12/16/2018 11:30 pm CLINICAL HISTORY: Chest pain COMPARISON: December 13 TECHNIQUE: AP portable chest image was obtained 2325 hours . FINDINGS: No acute lung parenchymal process seen. Lung markings are similar to comparison. Cardiomeg corie is present without acute vascular engorgement. Vasculature is similar to comparison. Defibrillato r is in place. Surgical clips overlie the right axilla and right breast. No measurable pleural effusi on and no pneumothorax. No acute bony abnormality seen. No acute aortic findings suspected. IMPRESSION: No acute cardiopulmonary process. No significant change from comparison.
--- NOTE | 2018-12-17 07:13 | EKG ---
Test Date: 2018-12-16 Test Time: 23:00:40 Hand Shoes Sewer: TRIP MEASUREMENT RESULTS: Intervals: Rate: 62 TN: 114 QRSD: 176 QT: 562 QTc: 570 [place]: P: 78 TN: 114 QRS: 124 T: -24 INTERPRETIVE STATEMENTS: Electronic ventricular pacemaker with occasional AV sequential pacing Compared to ECG 12/14/2018 04:11:26 No significant changes Electronically Signed On 12-17-18 07:12:47 CDT by Stephen Segovia
--- NOTE | 2018-12-17 21:42 | EKG ---
Test Date: 2018-12-16 Test Time: 22:34:27 Track Hoe Operator: MEASUREMENT RESULTS: Intervals: Rate: 70 CO: 118 QRSD: 180 QT: 524 QTc: 565 [place]: P: 48 CO: 118 QRS: 238 T: 90 INTERPRETIVE STATEMENTS: Atrial-sensed ventricular-paced rhythm Biventricular pacemaker detected Abnormal ECG Compared to ECG 12/14/2018 04:11:26 No significant changes Electronically Signed On 12-17-18 21:38:51 CDT by Juma Dickey
== END 2018-12-17 01:04 | disposition left against medical advice (07) ==
LOC: ER 22:43
DX: F12.10 Cannabis abuse, uncomplicated (principal); F19.10 Other psychoactive substance abuse, uncomplicated; I50.9 Heart failure, unspecified; F41.9 Anxiety disorder, unspecified; I25.10 Atherosclerotic heart disease of native coronary artery without angina pectoris; I48.91 Unspecified atrial fibrillation; Z85.3 Personal history of malignant neoplasm of breast; Z88.0 Allergy status to penicillin; Z88.5 Allergy status to narcotic agent; Z85.828 Personal history of other malignant neoplasm of skin
CPT/HCPCS: 36415; 71045; 80048; 80076; 80307; 80320; 81003; 83735; 83880; 84484; 85025; 85610; 93005

== ENCOUNTER 2018-12-22 00:43 | Emergency (ER) | payer OTHER ==
--- OUTSIDE RECORDS SUMMARY | 2018-12-22 00:45 | XMS REPORT ---
:1960 [facility] Address [address] [place] [address] Dr. Damon [address] [place] [id number] Care Team Providers Name Role Phone Unavailable Unavailable Unavailable Problems This patient has no known problems. Allergies, Adverse Reactions, Alerts This patient has no known allergies or adverse reactions. Medications This patient has no known medications.
--- OUTSIDE RECORDS SUMMARY | 2018-12-22 00:45 | XMS REPORT | Clinical Summary ---
:1960 Author Organization [facility] Address [address] [place] [id number] Care Team Providers Name Role Phone Asked, [...] INFLUENZA VACCINE 03/20/2019 Implants Implanted Type Area Emergency Department Aide Device Shelf Model / Identifier Expiration Serial / Date Lot Generator Quadra Assura Mp Magazine Keeper-D - [id number] - [id number] Cardiac Pacemaker N/A : [employer] 08/19/2018 [id number] / Implanted: Qty: 1 on 10/11/2016 by Kiley Carias Jr., MD Generators N/A MEDICAL [id number] / [id number] Quartet, Lv Leads, Model 1458q-86 - [id number] - [id number] Cardiac Pacing N/A : [employer]. [employer]WOA 05/19/2019 1458Q 86 / Implanted: Qty: 1 on 10/11/2016 by Kiley Carias Jr., MD Leads or N/A MEDICAL [id number] / Electrodes or [id number] Accessories Tendril Sts, Pacemaker Leads, Model 8tc/52 - [id number] - [id number] Cardiac Pacing N/A: [employer]. [employer]A 07/19/2019 2088TC/52 / Implanted: Qty: 1 on 10/11/2016 by Kiley Carias Jr., MD Leads or N/A MEDICAL [id number] / Electrodes or [id number] Accessories Envlp Impl Crdvrtr Dfb Antbctrl Fully Resorb Lg Aigissrx R - [id number] Cardiovascular N/A: [employer] [id number] / Implanted: 10/11/2016 (Quantity not on file) Implants N/A / Results Not on fileafter 12/21/2017 Insurance Payer Benefit Plan / Group Subscriber ID Type Phone Address MEDICARE MEDICARE PART A AND B xxxxxxxxxx Medicare [place], [place] Advance Directives Patient has advance care planning documents, and code status on file. For more information, please contact:[place] [address] Code Status Date Activated Date Inactivated Comments DNR 04/17/2017 10:02 AM 04/19/2017 4:40 PM Code Status decision reached by: Patient Full Code 04/07/2017 1:50 AM 04/17/2017 10:02 AM Code Status decision reached by: Patient
[2018-12-22 01:24] LABS: Urine Bacteria <20 /HPF (<20); Urine Culture Reflex Order NOT NEEDED; Urine RBC <5 /HPF (NONE SEEN)
[2018-12-22] MEDS ORDERED: MAGNE/ALUM HYDROXD 30 ML UCUP ONE (01:29)
[2018-12-22] MEDS ORDERED: FAMOTIDINE 20 MG/2 ML VIAL IV ONE (01:30)
[2018-12-22] MEDS ORDERED: MEPERIDINE HCL 25 MG/0.5 ML ONE (01:30)
[2018-12-22] MEDS ORDERED: LIDOCAINE VISCOUS 2% SOLN 15 ML UDC ONE (01:30)
[2018-12-22 01:32] LABS: Urine Blood TRACE (NEG); Urine Glucose NEGATIVE (NEG); Urine Protein NEGATIVE (NEG); Urine Specific Gravity 1.015 (1.005-1.030)
[2018-12-22 02:05] LABS: Absolute Lymphocytes (CBC) 1.2 K/uL (0.7-4.9); Absolute Monocytes 0.8 K/uL (0.1-1.3); Absolute Neutrophil 4.4 K/uL (1.8-8.0); Basophils % 0.9 % (0-1.3); Eosinophils % 1.8 % (0-4.4); Hematocrit 36.3 % (36.0-45.0); MPV 10.4 fL (7.6-11.3); RBC Red Blood Cell Count 3.97 M/uL (3.86-4.86)
[2018-12-22 02:22] LABS: Albumin 3.8 g/dL (3.4-5.0); Bilirubin Direct 0.1 mg/dL (0-0.2); Bilirubin Total 0.4 mg/dL (0.2-1.0); Potassium 3.9 mmol/L (3.5-5.1); Protein, Total 7.5 g/dL (6.4-8.2)
--- NOTE | 2018-12-22 03:35 | ER ---
Nurse's Notes [facility] Name: Lise Loera Age: 58 yrs Sex: Female : 1960 Arrival Date: 12/22/2018 Time: 00:45 Bed 13 Private MD: Diagnosis: Upper abdominal pain, unspecified Presentation: 12/22 00:51 Presenting complaint: EMS states: Pt reports epigastric pain since around 0800. Pt ed1 refused all EMS interventions. Transition of care: patient was not received from another setting of care. Onset of symptoms was December 21, 2018 at 08:00. Risk Assessment: Do you want to hurt yourself or someone else? Patient reports no desire to harm self or others. Initial Sepsis Screen: Does the patient meet any 2 criteria? No. Patient's initial sepsis screen is negative. Does the patient have a suspected source of infection? No. Patient's initial sepsis screen is negative. Care prior to arrival: None. Pt refused all EMS interventions. 00:51 Method Of Arrival: EMS: [facility] ed1 00:51 Acuity: ESTRELLITA 3 ed1 Triage Assessment: 00:53 General: Appears in no apparent distress. Behavior is uncooperative. Pain: Complains of ed1 pain in epigastric area and right upper quadrant. GI: Patient currently denies diarrhea, nausea, vomiting. Historical: - Allergies: 00:53 Codeine; ed1 00:53 PENICILLINS; ed1 - Home Meds: 00:53 amlodipine oral once daily [Active]; Iron CR Oral daily [Active]; Lasix Oral [Active]; ed1 Potassium Chloride Oral once daily [Active]; Xanax 2 mg Oral tab 1 tab 3 times per day [Active]; - PMHx: 00:53 ADD/ADHD; Anxiety; Atrial Fib; CAD; cancer - skin; Cancer, Breast; CHF; ed1 - PSHx: 00:53 Cholecystectomy; ed1 - Immunization history:: Adult Immunizations unknown. - Social history:: Smoking status: unknown. - Ebola Screening: : Patient negative for fever greater than or equal to 101.5 degrees Fahrenheit, and additional compatible Ebola Virus Disease symptoms Patient denies exposure to infectious person Patient denies travel to an Ebola-affected area in the 21 days before illness onset No symptoms or risks identified at this time. - Family history:: not pertinent. - Hospitalizations: : No recent hospitalization is reported. Screenin:58 Abuse screen: Denies threats or abuse. Denies injuries from another. Nutritional cc3 screening: No deficits noted. Tuberculosis screening: No symptoms or risk factors identified. Fall Risk Ambulatory Aid- None/Bed Rest/Nurse Assist (0 pts). Gait- Normal/Bed Rest/Wheelchair (0 pts) Mental Status- Oriented to own ability (0 pts). Assessment: 00:58 Reassessment: Patient appears in no apparent distress at this time. Patient and/or cc3 family updated on plan of care and expected duration. Pain level reassessed. Patient is alert, oriented x 3, equal unlabored respirations, skin warm/dry/pink. 01:25 Reassessment: Patient appears in no apparent distress at this time. Patient and/or cc3 family updated on plan of care and expected duration. Pain level reassessed. Patient is alert, oriented x 3, equal unlabored respirations, skin warm/dry/pink. 02:26 Reassessment: Patient appears in no apparent distress at this time. Patient and/or cc3 family updated on plan of care and expected duration. Pain level reassessed. Patient is alert, oriented x 3, equal unlabored respirations, skin warm/dry/pink. 03:50 Reassessment: Patient appears in no apparent distress at this time. Patient and/or cc3 family updated on plan of care and expected duration. Pain level reassessed. Patient is alert, oriented x 3, equal unlabored respirations, skin warm/dry/pink. Dr. Yun discharged the patient home, no prescription given. No IV cannula in situ, patient left ER vitally stable and ambulatory. Patient states feeling better. Patient states symptoms have improved. Vital Signs: 00:53 BP 109 / 77; Pulse 94; Resp 22; Temp 97.7(O); Pulse Ox 96% on R/A; ed1 01:48 BP 112 / 73; Pulse 95; Resp 20 S; Pulse Ox 96% on R/A; cc3 02:45 BP 119 / 98; Pulse 93; Resp 20 S; Pulse Ox 96% on R/A; cc3 03:20 BP 108 / 87; Pulse 92; Resp 19 S; Pulse Ox 97% on R/A; cc3 ED Course: 00:45 Patient arrived in ED. fc 00:46 Gian Yun MD is Attending Physician. rn 00:52 Triage completed. ed1 00:53 Arm band placed on. ed1 00:58 Alyssa Tapia is Primary Nurse. cc3 00:58 Patient has correct armband on for positive identification. Placed in gown. Bed in low cc3 position. Call light in reach. Side rails up X 1. hose operator on. Pulse ox on. NIBP on. 03:50 No provider procedures requiring assistance completed. Patient did not have IV access cc3 during this emergency room visit. Administered Medications: 01:20 Drug: GI Cocktail without - (Maalox Suspension 30 ml, Lidocaine Liquid 2 % 15 cc3 ml) Route: PO; 02:00 Follow up: Response: No adverse reaction cc3 01:34 CANCELLED (Physician Discretion): Pepcid 20 mg IVP once cc3 01:34 Not Given (Other Intervention Used; order changed to IM): Demerol 25 mg IVP once cc3 01:50 Drug: Demerol 25 mg Route: IM; Site: right gluteus; cc3 02:15 Follow up: Response: No adverse reaction cc3 03:36 CANCELLED (Other Intervention Used): Phenergan 25 mg IVP once cc3 03:40 Drug: Phenergan 25 mg Route: IM; Site: left gluteus; cc3 03:50 Follow up: Response: No adverse reaction; Nausea is decreased cc3 Outcome: 03:34 Discharge ordered by . rn 03:50 Discharged to home ambulatory. cc3 03:50 Condition: stable 03:50 Discharge instructions given to patient, Instructed on discharge instructions, follow up and referral plans. Demonstrated understanding of instructions, follow-up care. 03:57 Patient left the ED. cc3 Signatures: Beverly Soto RN RN Gian Yun MD MD rn Riggs, Erika, RN RN ed1 Alyssa Tapia cc3 Corrections: (The following items were deleted from the chart) 00:58 00:53 BP 109 / 77; Pulse 94bpm; Resp 22bpm; Pulse Ox 96% RA; ed1 ed1
--- NOTE | 2018-12-22 03:35 | EDPHYS ---
Physician Documentation [facility] Name: Lise Loera Age: 58 yrs Sex: Female : 1960 Arrival Date: 12/22/2018 Time: 00:45 Bed 13 Private MD: ED Physician Gian Yun HPI: 12/22 00:56 This 58 yrs old Female presents to ER via EMS with complaints of Epigastric rn Pain. 00:56 The patient presents with abdominal pain in the epigastric area. Onset: The rn symptoms/episode began/occurred yesterday. The symptoms do not radiate. Associated signs and symptoms: Pertinent positives: nausea, Pertinent negatives: anorexia, blood in stools, chest pain, constipation, diarrhea, dysuria, fever, shortness of breath, vomiting, vomiting blood. The symptoms are described as crampy. Modifying factors: The symptoms are alleviated by nothing, the symptoms are aggravated by bending over. The patient has not experienced similar symptoms in the past. Reports epigastric abd pain, no fever/nausea/vomiting/diarrhea. Denies chest pain or sob. Has had gallbladder removed already. Reports has never had this pain before. Worse when she bends over. . Historical: - Allergies: 00:53 Codeine; ed1 00:53 PENICILLINS; ed1 - Home Meds: 00:53 amlodipine oral once daily [Active]; Iron CR Oral daily [Active]; Lasix Oral [Active]; ed1 Potassium Chloride Oral once daily [Active]; Xanax 2 mg Oral tab 1 tab 3 times per day [Active]; - PMHx: 00:53 ADD/ADHD; Anxiety; Atrial Fib; CAD; cancer - skin; Cancer, Breast; CHF; ed1 - PSHx: 00:53 Cholecystectomy; ed1 - Immunization history:: Adult Immunizations unknown. - Social history:: Smoking status: unknown. - Ebola Screening: : Patient negative for fever greater than or equal to 101.5 degrees Fahrenheit, and additional compatible Ebola Virus Disease symptoms Patient denies exposure to infectious person Patient denies travel to an Ebola-affected area in the 21 days before illness onset No symptoms or risks identified at this time. - Family history:: not pertinent. - Hospitalizations: : No recent hospitalization is reported. ROS: 00:56 Constitutional: Negative for fever, chills, and weight loss, Eyes: Negative for injury, rn pain, redness, and discharge, Neck: Negative for injury, pain, and swelling, Cardiovascular: Negative for chest pain, palpitations, and edema, Respiratory: Negative for shortness of breath, cough, wheezing, and pleuritic chest pain, Abdomen/GI: Negative for nausea, vomiting, diarrhea, and constipation, MS/Extremity: Negative for injury and deformity, Skin: Negative for injury, rash, and discoloration, Neuro: Negative for headache, weakness, numbness, tingling, and seizure. Exam: 00:56 Constitutional: This is a well developed, well nourished patient who is awake, alert, rn and in no acute distress. Head/Face: Normocephalic, atraumatic. Cardiovascular: Regular rate and rhythm, No pulse deficits. Respiratory: Speaking full sentences, clear bilateral breath sounds Abdomen/GI: soft, + tender epigastric region, no rebound, no masses Skin: Warm, dry with normal turgor. Normal color with no rashes, no lesions, and no evidence of cellulitis. MS/ Extremity: Pulses equal, no cyanosis. Neurovascular intact. Full, normal range of motion. Equal circumference. Neuro: Awake and alert, GCS 15, oriented to person, place, time, and situation. Cranial nerves II-XII grossly intact. Motor strength 5/5 in all extremities. Sensory grossly intact. Vital Signs: 00:53 BP 109 / 77; Pulse 94; Resp 22; Temp 97.7(O); Pulse Ox 96% on R/A; ed1 01:48 BP 112 / 73; Pulse 95; Resp 20 S; Pulse Ox 96% on R/A; cc3 02:45 BP 119 / 98; Pulse 93; Resp 20 S; Pulse Ox 96% on R/A; cc3 03:20 BP 108 / 87; Pulse 92; Resp 19 S; Pulse Ox 97% on R/A; cc3 MDM: 00:46 Patient medically screened. rn 03:30 Differential diagnosis: gastritis, gastroesophageal reflux disease, non-specific abd rn pain, pancreatitis, urinary tract infection. Data reviewed: vital signs, nurses notes, lab test result(s), EKG, and as a result, I will discharge patient. Counseling: I had a detailed discussion with the patient and/or guardian regarding: the historical points, exam findings, and any diagnostic results supporting the discharge/admit diagnosis, lab results, radiology results, the need for outpatient follow up, to return to the emergency department if symptoms worsen or persist or if there are any questions or concerns that arise at home. Response to treatment: the patient's symptoms have mildly improved after treatment, and as a result, I will discharge patient. Special discussion: Based on the patient's Hx, exam, and Dx evaluation, there is no indication for emergent surgery or inpatient Tx. It is understood by the patient/guardian that if the Sx's persist or worsen they need to return immediately for re-evaluation. I discussed with the patient/guardian in detail that at this point there is no indication for admission to the hospital. It is understood, however, that if the symptoms persist or worsen the patient needs to return immediately for re-evaluation. ED course: Normal w/u, no ischemia on ecg, . 03:33 ED course: Pt very anxious, explained to her limitations of testing in ER, she is rn thankful for pain control and will f/u with pcp.. 12/22 00:55 Order name: Basic Metabolic Panel; Complete Time: 02:39 rn 12/22 00:55 Order name: CBC with Diff; Complete Time: 02:39 rn 12/22 00:55 Order name: Hepatic Function; Complete Time: :39 rn 12/22 00:55 Order name: Lipase; Complete Time: 02:39 rn 12/22 00:55 Order name: Urine Microscopic Only; Complete Time: 01:33 rn 12/22 01:09 Order name: Urine Dipstick--Ancillary (enter results); Complete Time: :33 [facility] 12/22 00:55 Order name: EKG; Complete Time: 00:57 rn 12/22 00:55 Order name: Labs collected and sent; Complete Time: 02:06 rn 12/22 00:55 Order name: Urine Dipstick-Ancillary (obtain specimen); Complete Time: 01:26 rn 12/22 00:55 Order name: EKG - Nurse/Tech; Complete Time: 01:14 rn Administered Medications: 01:20 Drug: GI Cocktail without - (Maalox Suspension 30 ml, Lidocaine Liquid 2 % 15 cc3 ml) Route: PO; 02:00 Follow up: Response: No adverse reaction cc3 01:34 CANCELLED (Physician Discretion): Pepcid 20 mg IVP once cc3 01:34 Not Given (Other Intervention Used; order changed to IM): Demerol 25 mg IVP once cc3 01:50 Drug: Demerol 25 mg Route: IM; Site: right gluteus; cc3 02:15 Follow up: Response: No adverse reaction cc3 03:36 CANCELLED (Other Intervention Used): Phenergan 25 mg IVP once cc3 03:40 Drug: Phenergan 25 mg Route: IM; Site: left gluteus; cc3 03:50 Follow up: Response: No adverse reaction; Nausea is decreased cc3 Disposition: 12/22/18 03:34 Discharged to Home. Impression: Upper abdominal pain, unspecified. - Condition is Stable. - Discharge Instructions: Abdominal Pain, Adult, Pain Without a Known Cause. - Medication Reconciliation Form, Thank You Letter, Antibiotic Education, Prescription Opioid Use form. - Follow up: Private Physician; When: As needed; Reason: Recheck today's complaints, Re-evaluation by your physician. - Problem is new. - Symptoms have improved. Signatures: Dispatcher [employer] EDMS Gian Yun MD MD rn Riggs, Erika, RN RN ed1 Alyssa Tapia cc3 Corrections: (The following items were deleted from the chart) 01:34 00:56 Pepcid 20 mg IVP once ordered. rn cc3 01:34 01:34 Pepcid 20 mg IVP once ordered. cc3 cc3 03:36 03:30 Phenergan 25 mg IVP once ordered. rn cc3 03:57 03:34 12/22/2018 03:34 Discharged to Home. Impression: Upper abdominal pain, cc3 unspecified. Condition is Stable. Forms are Medication Reconciliation Form, Thank You Letter, Antibiotic Education, Prescription Opioid Use. Follow up: Private Physician; When: As needed; Reason: Recheck today's complaints, Re-evaluation by your physician. Problem is new. Symptoms have improved. rn
[2018-12-22] MEDS ORDERED: PROMETHAZINE 25 MG/ML VIAL ONE (03:52)
[2018-12-22 04:09] VITALS: BP 109/77; TEMP 97.7; O2SAT 96
--- NOTE | 2018-12-22 21:03 | EKG ---
Test Date: 2018-12-22 Test Time: 01:06:22 Sat Tutor: ARNAUD MEASUREMENT RESULTS: Intervals: Rate: 77 CO: 116 QRSD: 180 QT: 498 QTc: 563 [place]: P: 64 CO: 116 QRS: -73 T: 45 INTERPRETIVE STATEMENTS: Electronic ventricular pacemaker Compared to ECG 12/16/2018 23:00:40 AV dual-paced complex(es) or rhythm no longer present Electronically Signed On 12-22-18 21:02:24 CDT by Stephen Segovia
== END 2018-12-22 03:57 | disposition home or self-care (01) ==
LOC: ER 00:43
DX: R10.13 Epigastric pain (principal); F41.9 Anxiety disorder, unspecified; I25.10 Atherosclerotic heart disease of native coronary artery without angina pectoris; I50.9 Heart failure, unspecified; Z88.0 Allergy status to penicillin; Z88.6 Allergy status to analgesic agent
CPT/HCPCS: 93005; 85025; 80048; 36415; 80076; 83690; 96372; 99284; J2550; J2175; 74176; 81003; 81015; 96374

== ENCOUNTER 2018-12-22 19:46 | Emergency (ER) | payer OTHER ==
--- OUTSIDE RECORDS SUMMARY | 2018-12-22 19:49 | XMS REPORT | Clinical Summary ---
:1960 Author Organization [facility] Address [address] [place] [id number] Care Team Providers Name Role Phone Asked, [...] INFLUENZA VACCINE 03/20/2019 Implants Implanted Type Area Fur Scraper Device Shelf Model / Identifier Expiration Serial / Date Lot Generator Quadra Assura Mp Transport Pilot-D - [id number] - [id number] Cardiac Pacemaker N/A : [employer] 08/19/2018 [id number] 40C / Implanted: Qty: 1 on 10/11/2016 by Kiley Carias Jr., MD Generators N/A MEDICAL [id number] / [id number] Quartet, Lv Leads, Model 1458q-86 - [id number] - [id number] Cardiac Pacing N/A : [employer]. ADWOA 05/19/2019 1458Q 86 / Implanted: Qty: 1 on 10/11/2016 by Kiley Carias Jr., MD Leads or N/A MEDICAL [id number] / Electrodes or [id number] Accessories Tendril Sts, Pacemaker Leads, Model 8tc/52 - [id number] - [id number] Cardiac Pacing N/A: [employer]. ADWOA 07/19/2019 2088TC/52 / Implanted: Qty: 1 on 10/11/2016 by Kiley Carias Jr., MD Leads or N/A MEDICAL [id number] / Electrodes or [id number] Accessories Envlp Impl Crdvrtr Dfb Antbctrl Fully Resorb Lg Aigissrx R - [id number] Cardiovascular N/A: [employer] [id number] / Implanted: 10/11/2016 (Quantity not on file) Implants N/A / Results Not on fileafter 12/21/2017 Insurance Payer Benefit Plan / Group Subscriber ID Type Phone Address MEDICARE MEDICARE PART A AND B xxxxxxxxxx Medicare [place], [place] Advance Directives Patient has advance care planning documents, and code status on file. For more information, please contact:[place] [address] Code Status Date Activated Date Inactivated Comments DNR 04/17/2017 10:02 AM 04/19/2017 4:40 PM Code Status decision reached by: Patient Full Code 04/07/2017 1:50 AM 04/17/2017 10:02 AM Code Status decision reached by: Patient
--- OUTSIDE RECORDS SUMMARY | 2018-12-22 19:49 | XMS REPORT ---
:1960 [facility] Address [address] [place] [address] Dr. [address] [place] [id number] Care Team Providers Name Role Phone Unavailable Unavailable Unavailable Problems This patient has no known problems. Allergies, Adverse Reactions, Alerts This patient has no known allergies or adverse reactions. Medications This patient has no known medications.
[2018-12-22 20:44] LABS: Absolute Monocytes 0.7 K/uL (0.1-1.3); Absolute Neutrophil 4.3 K/uL (1.8-8.0); Basophils % 1.1 % (0-1.3); Lymphocytes % 15.6 % (15.3-44.8); MPV 10.2 fL (7.6-11.3); Monocytes % 12.1 % (3.3-12.3); RBC Red Blood Cell Count 4.04 M/uL (3.86-4.86)
[2018-12-22 20:56] LABS: Albumin 4.1 g/dL (3.4-5.0); Bilirubin Direct 0.2 mg/dL (0-0.2); Bilirubin Total 0.6 mg/dL (0.2-1.0); Potassium 4.2 mmol/L (3.5-5.1); Protein, Total 7.9 g/dL (6.4-8.2)
[2018-12-22] MEDS ORDERED: MAGNE/ALUM HYDROXD 30 ML UCUP ONE (21:08)
[2018-12-22] MEDS ORDERED: MORPHINE 4 MG/ML SYR ONE (21:08)
[2018-12-22] MEDS ORDERED: LIDOCAINE VISCOUS 2% SOLN 15 ML UDC ONE (21:09)
--- NOTE | 2018-12-22 22:30 | ER ---
Nurse's Notes [facility] Name: Lise Loera Age: 58 yrs Sex: Female : 1960 Arrival Date: 12/22/2018 Time: 19:52 Bed 4 Private MD: Diagnosis: Upper abdominal pain, unspecified;Fatty (change of) liver, not elsewhere classified Presentation: 12/22 19:56 Presenting complaint: EMS states: they were toned out for report of pt having abdominal bb pain pt was seen here last night. Transition of care: patient was not received from another setting of care. Onset of symptoms was December 22, 2018. Risk Assessment: Do you want to hurt yourself or someone else? Patient reports no desire to harm self or others. Initial Sepsis Screen: Does the patient meet any 2 criteria? No. Patient's initial sepsis screen is negative. Does the patient have a suspected source of infection? No. Patient's initial sepsis screen is negative. Care prior to arrival: None. 19:56 Method Of Arrival: EMS: [facility] 19:56 Acuity: ESTRELLITA 3 bb Historical: - Allergies: 20:00 Codeine; bb 20:00 PENICILLINS; bb - Home Meds: 20:00 amlodipine oral once daily [Active]; Iron CR Oral daily [Active]; Lasix Oral [Active]; bb Potassium Chloride Oral once daily [Active]; Xanax 2 mg Oral tab 1 tab 3 times per day [Active]; - PMHx: 20:00 ADD/ADHD; Anxiety; Atrial Fib; CAD; cancer - skin; Cancer, Breast; CHF; bb - PSHx: 20:00 Cholecystectomy; bb - Immunization history:: Adult Immunizations up to date. - Social history:: Smoking status: Patient/guardian denies using tobacco, Patient uses alcohol, occasionally. - Family history:: not pertinent. - Ebola Screening: : No symptoms or risks identified at this time. - Hospitalizations: : No recent hospitalization is reported. Screenin:04 Abuse screen: Denies threats or abuse. Denies injuries from another. Nutritional ak1 screening: No deficits noted. Tuberculosis screening: No symptoms or risk factors identified. Fall Risk None identified. Assessment: 20:04 General: Appears in no apparent distress. Behavior is talkative, hyperactivity. . Pain: ak1 Complains of pain in abdomen. Neuro: No deficits noted. Cardiovascular: Reports. Respiratory: No deficits noted. GI: Abdomen is flat, pt seen in ER last night for same s/s. : No signs and/or symptoms were reported regarding the genitourinary system. EENT: No signs and/or symptoms were reported regarding the EENT system. Derm: No signs and/or symptoms reported regarding the dermatologic system. Musculoskeletal: No signs and/or symptoms reported regarding the musculoskeletal system. 20:05 Reassessment: pt stated she is a "19 year recovering IV drug user" and will need to be ak1 "stuck in the foot" Charge nurse and ERP notified, US IV attempt to be placed. 20:26 Reassessment: pt stated she found a "bone" in her stool. ak1 21:09 Reassessment: pt to CT scan. ak1 21:30 Reassessment: Patient is alert, oriented x 3, equal unlabored respirations, skin bb warm/dry/pink. pt is sitting on stool by bed talking on her telephone, pt states pain improved slightly now 7/10. 23:08 Reassessment: pt stated her sister is picking her up. pt refused to stay on vials ak1 machine for visit. pt A\\T\\OX4 with steady gait at discharge. no vomiting or diarrhea noted or reported during pt ER visit. Vital Signs: 20:00 BP 103 / 75; Pulse 85; Resp 22 S; Temp 98.5(O); Pulse Ox 97% on R/A; Pain 10/10; bb 21:30 bb 22:51 BP 106 / 52; Pulse 70; Resp 18; Temp 97.9; Pulse Ox 97% on R/A; aa1 21:30 pt is refusing to stay on monitor bb ED Course: 19:52 Patient arrived in ED. rn 19:52 Gian Yun MD is Attending Physician. rn 19:56 Lisseth Morales, DAMASO is Primary Nurse. ak1 19:58 Triage completed. bb 20:00 Arm band placed on Patient placed in an exam room, on a stretcher, on pulse oximetry. bb 20:04 Patient has correct armband on for positive identification. Bed in low position. Call ak1 light in reach. Side rails up X2. Pulse ox on. NIBP on. 20:41 Inserted saline lock: 18 gauge in left antecubital area, using aseptic technique. Blood la1 collected. 21:34 CT completed. Patient tolerated procedure well. Patient moved back from CT. bq 23:07 No provider procedures requiring assistance completed. IV discontinued, intact, ak1 bleeding controlled, No redness/swelling at site. Pressure dressing applied. Administered Medications: 21:02 Drug: morphine 4 mg Route: IVP; Site: left antecubital; 21:30 Follow up: Response: Pain is decreased bb 21: Not Given (Patient Refused): GI Cocktail without - (Maalox Suspension 30 ml, bb Lidocaine Liquid 2 % 15 ml) PO once Outcome: 22:29 Discharge ordered by . rn 23:07 Discharged to home ambulatory. ak1 23:07 Condition: stable 23:07 Discharge instructions given to patient, Instructed on discharge instructions, follow up and referral plans. Demonstrated understanding of instructions, follow-up care. 23:09 Patient left the ED. ak1 Signatures: Hailey Kwon RN RN Wendi Sorenson Katy Cameron RN RN bb Gian Yun MD MD rn Attema, Lee, RN RN la1 Lisseth Morales RN RN ak1
--- NOTE | 2018-12-22 22:30 | EDPHYS ---
Physician Documentation [facility] Name: Lise Loera Age: 58 yrs Sex: Female : 1960 Arrival Date: 12/22/2018 Time: 19:52 Bed 4 Private MD: ED Physician Gian Yun HPI: 12/22 19:52 This 58 yrs old Female presents to ER via Unassigned with complaints of rn abdominal pain. 19:52 The patient presents with abdominal pain in the epigastric area. Onset: The rn symptoms/episode began/occurred yesterday. The symptoms do not radiate. Associated signs and symptoms: Pertinent negatives: blood in stools, constipation, diarrhea, fever, shortness of breath, vaginal discharge. The symptoms are described as crampy, intermittent. Modifying factors: The symptoms are alleviated by nothing, the symptoms are aggravated by touching the area. Severity of pain: At its worst the pain was moderate in the emergency department the pain is unchanged. The patient has experienced similar episodes in the past. The patient has been recently seen at the [facility] Emergency Department, yesterday. I saw this patient last night for same complaint, bloodwork normal, she returns because pain went away last night when went home but returned this morning, pooped, and found strange structure in her stool, states "looks like a joint". . Historical: - Allergies: 20:00 Codeine; bb 20:00 PENICILLINS; bb - Home Meds: 20:00 amlodipine oral once daily [Active]; Iron CR Oral daily [Active]; Lasix Oral [Active]; bb Potassium Chloride Oral once daily [Active]; Xanax 2 mg Oral tab 1 tab 3 times per day [Active]; - PMHx: 20:00 ADD/ADHD; Anxiety; Atrial Fib; CAD; cancer - skin; Cancer, Breast; CHF; bb - PSHx: 20:00 Cholecystectomy; bb - Immunization history:: Adult Immunizations up to date. - Social history:: Smoking status: Patient/guardian denies using tobacco, Patient uses alcohol, occasionally. - Family history:: not pertinent. - Ebola Screening: : No symptoms or risks identified at this time. - Hospitalizations: : No recent hospitalization is reported. ROS: 19:52 Constitutional: Negative for fever, chills, and weight loss, Eyes: Negative for injury, rn pain, redness, and discharge, Neck: Negative for injury, pain, and swelling, Cardiovascular: Negative for chest pain, palpitations, and edema, Respiratory: Negative for shortness of breath, cough, wheezing, and pleuritic chest pain, Abdomen/GI: Negative for nausea, vomiting, diarrhea, and constipation MS/Extremity: Negative for injury and deformity, Skin: Negative for injury, rash, and discoloration, Neuro: Negative for headache, weakness, numbness, tingling, and seizure. Exam: 19:52 Constitutional: This is a well developed, well nourished patient who is awake, alert, rn very anxious, demanding pain medication Head/Face: Normocephalic, atraumatic. Eyes: Pupils equal round and reactive to light, extra-ocular motions intact. Lids and lashes normal. Conjunctiva and sclera are non-icteric and not injected. Cornea within normal limits. Periorbital areas with no swelling, redness, or edema. ENT: MMM Respiratory: No increased work of breathing, no retractions or nasal flaring. Abdomen/GI: soft, non-tender MS/ Extremity: Pulses equal, no cyanosis. Neurovascular intact. Full, normal range of motion. Equal circumference. Neuro: Awake and alert, GCS 15, oriented to person, place, time, and situation. Cranial nerves II-XII grossly intact. Motor strength 5/5 in all extremities. Sensory grossly intact. Vital Signs: 20:00 BP 103 / 75; Pulse 85; Resp 22 S; Temp 98.5(O); Pulse Ox 97% on R/A; Pain 10/10; bb 21:30 bb 22:51 BP 106 / 52; Pulse 70; Resp 18; Temp 97.9; Pulse Ox 97% on R/A; aa1 21:30 pt is refusing to stay on monitor bb MDM: 19:52 Patient medically screened. rn 22:28 Differential diagnosis: gastritis, gastroesophageal reflux disease, non-specific abd rn pain, pancreatitis. Data reviewed: vital signs, nurses notes, lab test result(s), radiologic studies, CT scan, and as a result, I will discharge patient. Counseling: I had a detailed discussion with the patient and/or guardian regarding: the historical points, exam findings, and any diagnostic results supporting the discharge/admit diagnosis, lab results, radiology results, the need for outpatient follow up, to return to the emergency department if symptoms worsen or persist or if there are any questions or concerns that arise at home. Special discussion: Based on the patient's Hx, exam, and Dx evaluation, there is no indication for emergent surgery or inpatient Tx. It is understood by the patient/guardian that if the Sx's persist or worsen they need to return immediately for re-evaluation. I discussed with the patient/guardian in detail that at this point there is no indication for admission to the hospital. It is understood, however, that if the symptoms persist or worsen the patient needs to return immediately for re-evaluation. 12/22 19:52 Order name: Basic Metabolic Panel; Complete Time: 20:57 rn 12/22 19:52 Order name: CBC with Diff; Complete Time: 20:57 rn 12/22 19:52 Order name: Hepatic Function; Complete Time: 20:57 rn 12/22 19:52 Order name: Lipase; Complete Time: 20:57 rn 12/22 19:52 Order name: IV Saline Lock; Complete Time: 20:54 rn 12/22 19:52 Order name: Labs collected and sent; Complete Time: 20:54 rn Administered Medications: 21:02 Drug: morphine 4 mg Route: IVP; Site: left antecubital; bb 21:30 Follow up: Response: Pain is decreased bb 21:02 Not Given (Patient Refused): GI Cocktail without - (Maalox Suspension 30 ml, bb Lidocaine Liquid 2 % 15 ml) PO once Disposition: 12/22/18 22:29 Discharged to Home. Impression: Upper abdominal pain, unspecified, Fatty (change of) liver, not elsewhere classified. - Condition is Stable. - Discharge Instructions: Abdominal Pain, Adult, Pain Without a Known Cause. - Medication Reconciliation Form, Thank You Letter, Antibiotic Education, Prescription Opioid Use form. - Follow up: Private Physician; When: As needed; Reason: Recheck today's complaints, Re-evaluation by your physician. - Problem is an ongoing problem. - Symptoms have improved. Signatures: Dispatcher [employer] EDMS Katy Cameron RN RN bb Nieto, Roman, MD MD rn Krenek, Amber, RN RN ak1 Corrections: (The following items were deleted from the chart) 23:09 22:29 12/22/2018 22:29 Discharged to Home. Impression: Upper abdominal pain, ak1 unspecified; Fatty (change of) liver, not elsewhere classified. Condition is Stable. Forms are Medication Reconciliation Form, Thank You Letter, Antibiotic Education, Prescription Opioid Use. Follow up: Private Physician; When: As needed; Reason: Recheck today's complaints, Re-evaluation by your physician. Problem is an ongoing problem. Symptoms have improved. rn
[2018-12-22 23:18] VITALS: O2SAT 97
[2018-12-22 23:20] VITALS: BP 106/52; TEMP 97.9
--- NOTE | 2018-12-23 11:16 | RAD REPORT ---
EXAM DESCRIPTION: Abdomen Pelvis W Contrast CLINICAL HISTORY: LLQ pain COMPARISON: None. TECHNIQUE: CT ABDOMEN PELVIS WITH IV CONTRAST on 12/22/2018 7:40 PM CDT This exam was performed according to our departmental dose-optimization program, which includes autom ated exposure control, adjustment of the mA and/or kV according to patient size and/or use of iterati ve reconstruction technique. FINDINGS: Lower lungs are clear. Abdomen: The liver is normal in appearance. There is no biliary dilatation. Gallbladder is normal in appearance. There are multiple visible mesenteric and especially right lower quadrant lymph nodes. Th e pancreas and spleen are normal in appearance. The adrenal glands and kidneys are unremarkable. Abdominal aorta is normal in course and caliber without aneurysm. There is no free air. There is no r etroperitoneal adenopathy. Pelvis: There is no bowel obstruction. Urinary bladder is unremarkable. There is no free fluid. Appen rachel is partially visualized without surrounding inflammation. Skeleton: There are no acute osseous findings. No suspicious bony lesions. IMPRESSION: Probable mesenteric diverticulitis. No acute inflammatory process otherwise. Electronically signed by: Miguel Gamez MD 12/22/2018 10:19 PM CDT Due to temporary technical issues with the PACS/Fluency reporting system, reports are being signed by the in house radiologist as a courtesy to ensure prompt reporting. The interpreting radiologist is brianne bellely responsible for the content of the report.
== END 2018-12-22 23:09 | disposition home or self-care (01) ==
LOC: ER 19:46
DX: K76.0 Fatty (change of) liver, not elsewhere classified (principal); I50.9 Heart failure, unspecified; I48.91 Unspecified atrial fibrillation; F41.9 Anxiety disorder, unspecified; F98.8 Other specified behavioral and emotional disorders with onset usually occurring in childhood and adolescence; Z88.6 Allergy status to analgesic agent; Z88.0 Allergy status to penicillin
CPT/HCPCS: 36415; 74176; 80048; 80076; 83690; 85025; 96374; 99284

== ENCOUNTER 2018-12-26 18:12 | Emergency (ER) | payer OTHER ==
--- OUTSIDE RECORDS SUMMARY | 2018-12-26 18:14 | XMS REPORT ---
:1960 [facility] Address [address] [place] [address] Dr[address] [place] [id number] Care Team Providers Name Role Phone Unavailable Unavailable Unavailable Problems This patient has no known problems. Allergies, Adverse Reactions, Alerts This patient has no known allergies or adverse reactions. Medications This patient has no known medications.
--- OUTSIDE RECORDS SUMMARY | 2018-12-26 18:14 | XMS REPORT | Clinical Summary ---
:1960 Author Organization [facility] Address [address] [place] [id number] Care Team Providers Name Role Phone Asked, [...] INFLUENZA VACCINE 03/20/2019 Implants Implanted Type Area Fiber Optics Technician Device Shelf Model / Identifier Expiration Serial / Date Lot Generator Quadra Assura Mp Senior Software Quality Analyst-D - [id number] - [id number] Cardiac Pacemaker N/A : [employer] 08/19/2018 [id number] / Implanted: Qty: 1 on 10/11/2016 by Kiley Carias Jr., MD Generators N/A MEDICAL [id number] / [id number] Quartet, Lv Leads, Model 1458q-86 - [id number] - [id number] Cardiac Pacing N/A : [employer] 05/19/2019 [id number] / Implanted: Qty: 1 on 10/11/2016 by Kiley Carias Jr., MD Leads or N/A MEDICAL [id number] / Electrodes or [id number] Accessories Tendril Sts, Pacemaker Leads, Model 8tc/52 - [id number] - [id number] Cardiac Pacing N/A: [employer] 07/19/2019 [id number] / Implanted: Qty: 1 on 10/11/2016 by Kiley Carias Jr., MD Leads or N/A MEDICAL [id number] / Electrodes or [id number] Accessories Envlp Impl Crdvrtr Dfb Antbctrl Fully Resorb Lg Aigissrx R - [id number] Cardiovascular N/A: [employer] [id number] / Implanted: 10/11/2016 (Quantity not on file) Implants N/A / Results Not on fileafter 12/25/2017 Insurance Payer Benefit Plan / Group Subscriber ID Type Phone Address MEDICARE MEDICARE PART A AND B xxxxxxxxxx Medicare [place], [place] Advance Directives Patient has advance care planning documents, and code status on file. For more information, please contact:[place] [address] Code Status Date Activated Date Inactivated Comments DNR 04/17/2017 10:02 AM 04/19/2017 4:40 PM Code Status decision reached by: Patient Full Code 04/07/2017 1:50 AM 04/17/2017 10:02 AM Code Status decision reached by: Patient
[2018-12-26] MEDS ORDERED: MAGNE/ALUM HYDROXD 30 ML UCUP ONE (21:03)
[2018-12-26] MEDS ORDERED: LIDOCAINE VISCOUS 2% SOLN 15 ML UDC ONE (21:04)
[2018-12-26] MEDS ORDERED: LORazepam 2 MG/ML VIAL ONE (21:04)
--- NOTE | 2018-12-26 21:10 | EDPHYS ---
Physician Documentation [facility] Name: Lise Loera Age: 58 yrs Sex: Female : 1960 Arrival Date: 12/26/2018 Time: 18:24 Bed 20 Private MD: ED Physician Major Sheridan HPI: 12/26 21:05 This 58 yrs old Female presents to ER via EMS with complaints of Anxiety, jr8 numbness, abdominal pain . 21:05 Patient stated that she has been having abdominal pain. Feels numb all over. And very jr8 anxious. Patient has been seen several times recently for similar symptoms. Has been worked up by GI and currently on antibiotics for inflammation/infection of stomach per patient. Came today for same symptoms . Severity of symptoms: At their worst the symptoms were moderate in the emergency department the symptoms are unchanged. The patient has experienced similar episodes in the past, a few times. The patient has been recently seen by a physician:. Historical: - Allergies: 18:51 Codeine; sv 18:51 PENICILLINS; sv - PMHx: 18:51 ADD/ADHD; Anxiety; Atrial Fib; CAD; cancer - skin; Cancer, Breast; CHF; sv - PSHx: 18:51 Cholecystectomy; sv - Immunization history:: Adult Immunizations up to date. - Social history:: Smoking status: Patient/guardian denies using tobacco. - Ebola Screening: : No symptoms or risks identified at this time. ROS: 21:05 Eyes: Negative for injury, pain, redness, and discharge, ENT: Negative for injury, jr8 pain, and discharge, Neck: Negative for injury, pain, and swelling, Cardiovascular: Negative for chest pain, palpitations, and edema, Respiratory: Negative for shortness of breath, cough, wheezing, and pleuritic chest pain, Back: Negative for injury and pain, MS/Extremity: Negative for injury and deformity, Skin: Negative for injury, rash, and discoloration, Neuro: Negative for headache, weakness, numbness, tingling, and seizure. 21:05 Abdomen/GI: Positive for abdominal pain, Negative for nausea, vomiting, and diarrhea, abdominal distension, anorexia, dysphagia, hematemesis, black/tarry stool, rectal pain, rectal bleeding, bowel incontinence, flatulence. 21:05 Psych: Positive for anxiety. Exam: 21:05 Eyes: Pupils equal round and reactive to light, extra-ocular motions intact. Lids and jr8 lashes normal. Conjunctiva and sclera are non-icteric and not injected. Cornea within normal limits. Periorbital areas with no swelling, redness, or edema. ENT: Nares patent. No nasal discharge, no septal abnormalities noted. Tympanic membranes are normal and external auditory canals are clear. Oropharynx with no redness, swelling, or masses, exudates, or evidence of obstruction, uvula midline. Mucous membranes moist. Neck: Trachea midline, no thyromegaly or masses palpated, and no cervical lymphadenopathy. Supple, full range of motion without nuchal rigidity, or vertebral point tenderness. No Meningismus. Cardiovascular: Regular rate and rhythm with a normal S1 and S2. No gallops, murmurs, or rubs. Normal PMI, no JVD. No pulse deficits. Respiratory: Lungs have equal breath sounds bilaterally, clear to auscultation and percussion. No rales, rhonchi or wheezes noted. No increased work of breathing, no retractions or nasal flaring. Back: No spinal tenderness. No costovertebral tenderness. Full range of motion. Skin: Warm, dry with normal turgor. Normal color with no rashes, no lesions, and no evidence of cellulitis. MS/ Extremity: Pulses equal, no cyanosis. Neurovascular intact. Full, normal range of motion. Neuro: Awake and alert, GCS 15, oriented to person, place, time, and situation. Cranial nerves II-XII grossly intact. Motor strength 5/5 in all extremities. Sensory grossly intact. Cerebellar exam normal. Normal gait. 21:05 Constitutional: The patient appears alert, awake, anxious. 21:05 Abdomen/GI: Inspection: abdomen appears normal, Bowel sounds: active, all quadrants, Palpation: soft, in all quadrants, mild abdominal tenderness, in the epigastric area, mass, is not appreciated, rebound tenderness, is not appreciated, voluntary guarding, is not appreciated, involuntary guarding, is not appreciated, no appreciated organomegaly, Indicators: McBurney's point is not tender, Deal's sign is negative, Rovsing's sign is negative, Liver: tenderness, is not appreciated. Vital Signs: 18:20 BP 90 / 50; Pulse 76; Resp 30; Temp 98; Pulse Ox 100% ; Pain 10/10; sv 18:58 BP 97 / 43; Pulse 73; Resp 22; Pulse Ox 97% ; sv 19:08 BP 104 / 76; Pulse 86 MON; Resp 18; Pulse Ox 98% on R/A; sv 20:50 BP 106 / 73; Pulse 84; Resp 19 S; Pulse Ox 98% on R/A; cc3 MDM: 19:50 Patient medically screened. 8 21:05 Data reviewed: vital signs, nurses notes, lab test result(s). Data interpreted: Pulse jr8 oximetry: on room air is 98 %. Interpretation: normal. ED course: Patient became more anxious here and refused medication that we offered to help her. Would not stay to get blood work results. Tried to calm her down but would not listen. Got up and walked out after we D/C'd her IV. Would not sign AMA . Administered Medications: 20:48 CANCELLED (Other Intervention Used; changed order to IM): Ativan 1 mg IVP once cc3 21:14 Not Given (Patient Refused): GI Cocktail without - (Maalox Suspension 30 ml, cc3 Lidocaine Liquid 2 % 15 ml) PO once 21:14 Not Given (Patient Refused): Ativan 1 mg IM once cc3 Disposition: 12/27 14:59 Co-signature as Attending Physician, Major Sheridan MD I agree with the assessment and adriana plan of care. Disposition: 12/26/18 21:10 Patient has left against medical advice. Impression: Gastritis, unspecified, Anxiety disorder, unspecified. - Patients states they are going to Home. - Condition is Stable. Follow up: Private Physician; When: 1 - 2 days; Reason: Recheck today's complaints, Continuance of care, Re-evaluation by your physician. - Problem is new. - Symptoms are unchanged. Signatures: Dispatcher [employer] EDMS Reshma Sousa RN RN sv Anderson, Corey, MD MD cha Roszak, Josh, PA PA jr8 Alyssa Tapia cc3 Corrections: (The following items were deleted from the chart) 12/26 20:48 20:32 Ativan 1 mg IVP once ordered. jr8 cc3 20:48 20:47 Ativan 1 mg IVP once ordered. cc3 cc3 21:15 21:10 12/26/2018 21:10 Patients has left against medical advice. Impression: Gastritis, cc3 unspecified; Anxiety disorder, unspecified. Patient states they are going to Home. Condition is Stable. Follow up: Private Physician; When: 1 - 2 days; Reason: Recheck today's complaints, Continuance of care, Re-evaluation by your physician. Problem is new. Symptoms are unchanged. jr8
--- NOTE | 2018-12-26 21:10 | ER ---
Nurse's Notes [facility] Name: Lise Loera Age: 58 yrs Sex: Female : 1960 Arrival Date: 12/26/2018 Time: 18:24 Bed 20 Private MD: Diagnosis: Gastritis, unspecified;Anxiety disorder, unspecified Presentation: 12/26 18:10 Presenting complaint: EMS states: called out for numbness to both hands and feet x 3 sv days. BP 93/59 HR-88. Transition of care: patient was not received from another setting of care. Onset of symptoms was December 23, 2018. Risk Assessment: Do you want to hurt yourself or someone else? Patient reports no desire to harm self or others. Initial Sepsis Screen: Does the patient meet any 2 criteria? RR > 20 per min. No. Patient's initial sepsis screen is negative. Does the patient have a suspected source of infection? No. Patient's initial sepsis screen is negative. Care prior to arrival: None. 18:10 Method Of Arrival: EMS: [facility] sv 18:10 Acuity: ESTRELLITA 3 sv 18:15 Presenting complaint: Patient states: SOB, chest pain, and reports that she has been sv weaning herself off of her Xanax as well. Triage Assessment: 18:10 General: Appears uncomfortable, well developed, Behavior is anxious, restless. General: sv Pt demanding to use the bathroom. Informed pt that I would get a beside commode for her to use. Pt very anxious at this time.. Pain: Complains of pain in abdomen Pain currently is 10 out of 10 on a pain scale. Quality of pain is described as burning, Pain began 2-3 days ago. Is continuous. Neuro: Level of Consciousness is awake, alert, obeys commands, Oriented to person, place, time, situation, Moves all extremities. Full function Speech is normal. Cardiovascular: Patient's skin is warm and dry. Respiratory: Reports shortness of breath at rest on exertion Airway is patent Respiratory effort is even, unlabored, Respiratory pattern is symmetrical, hyperventilation. GI: Reports lower abdominal pain, upper abdominal pain. Derm: Skin is normal, multiple stages of bruising noted on bilateral arms. Historical: - Allergies: 18:51 Codeine; sv 18:51 PENICILLINS; sv - PMHx: 18:51 ADD/ADHD; Anxiety; Atrial Fib; CAD; cancer - skin; Cancer, Breast; CHF; sv - PSHx: 18:51 Cholecystectomy; sv - Immunization history:: Adult Immunizations up to date. - Social history:: Smoking status: Patient/guardian denies using tobacco. - Ebola Screening: : No symptoms or risks identified at this time. Screenin:30 Abuse screen: Denies threats or abuse. Denies injuries from another. Nutritional sv screening: No deficits noted. Tuberculosis screening: No symptoms or risk factors identified. Fall Risk None identified. Assessment: 18:20 Reassessment: Pt assisted to the BSC. sv 18:29 Reassessment: EKG being done. Pt very anxious at this time. Pt educated on breathing sv exercises and keep calm. 18:40 Reassessment: Call dolan on, pt appears anxious. Pt given deep breathing instruction and sv a NRB placed with no oxygen. 18:50 Reassessment: Call dolan on, pt wanting to speak to a doctor. sv 19:20 Reassessment: Patient appears in no apparent distress at this time. Patient and/or cc3 family updated on plan of care and expected duration. Pain level reassessed. Patient is alert, oriented x 3, equal unlabored respirations, skin warm/dry/pink. Received this female patient from morning shift DAMASO Justice as a case of anxiety. No IV cannula in situ. 20:25 Reassessment: Patient appears in no apparent distress at this time. Patient and/or cc3 family updated on plan of care and expected duration. Pain level reassessed. Patient is alert, oriented x 3, equal unlabored respirations, skin warm/dry/pink. 21:05 Reassessment: Patient appears in no apparent distress at this time. Patient and/or cc3 family updated on plan of care and expected duration. Pain level reassessed. Patient is alert, oriented x 3, equal unlabored respirations, skin warm/dry/pink. Patient refused medications and wanting to leave against medical advice though risks and consequences explained. Refused to sign AMA form then left ER vitally stable and ambulatory, AMANDA Johnson and charge nurse Beverly informed. Vital Signs: 18:20 BP 90 / 50; Pulse 76; Resp 30; Temp 98; Pulse Ox 100% ; Pain 10/10; sv 18:58 BP 97 / 43; Pulse 73; Resp 22; Pulse Ox 97% ; sv 19:08 BP 104 / 76; Pulse 86 MON; Resp 18; Pulse Ox 98% on R/A; sv 20:50 BP 106 / 73; Pulse 84; Resp 19 S; Pulse Ox 98% on R/A; cc3 ED Course: 18:15 Arm band placed on. sv 18:20 Patient maintains SpO2 saturation greater than 95% on room air. sv 18:24 Patient arrived in ED. sv 18:29 EKG done, by ED staff, reviewed by Major Sheridan MD. sv 18:30 Patient has correct armband on for positive identification. Bed in low position. Call sv light in reach. Side rails up X2. electronic device monitor on. Pulse ox on. NIBP on. Door closed. Head of bed elevated. 18:41 Reshma Sousa RN is Primary Nurse. sv 18:51 Triage completed. sv 19:05 Report given to Alyssa PETIT. sv 19:34 Primary Nurse role handed off by Reshma Sousa RN sv 19:40 Alyssa Tapia is Primary Nurse. cc3 19:49 Enrrique Johnson PA is PHCP. jr8 19:49 Major Sheridan MD is Attending Physician. jr8 21:05 No provider procedures requiring assistance completed. Patient did not have IV access cc3 during this emergency room visit. Administered Medications: 20:48 CANCELLED (Other Intervention Used; changed order to IM): Ativan 1 mg IVP once cc3 21:14 Not Given (Patient Refused): GI Cocktail without - (Maalox Suspension 30 ml, cc3 Lidocaine Liquid 2 % 15 ml) PO once 21:14 Not Given (Patient Refused): Ativan 1 mg IM once cc3 Outcome: 21:05 AMA Other refused to sign AMA form cc3 21:05 Condition: stable 21:05 Instructed on follow up and referral plans. 21:15 Patient left the ED. cc3 Signatures: Reshma Sousa RN RN Enrrique Johnson PA PA jr8 Alyssa Tapia cc3 Corrections: (The following items were deleted from the chart) 12/27 04:39 05/09 20:18 BP 106 / 73; Pulse 84bpm; Resp 19bpm; Spontaneous; Pulse Ox 98% RA; cc3 cc3
[2018-12-26 21:25] VITALS: TEMP 98
[2018-12-26 21:28] VITALS: BP 104/76; O2SAT 98
--- NOTE | 2018-12-27 14:44 | EKG ---
Test Date: 2018-12-26 Test Time: 18:29:08 Electric Melt Operator: YESIKA MEASUREMENT RESULTS: Intervals: Rate: 77 MI: 132 QRSD: 168 QT: 490 QTc: 554 [place]: P: 86 MI: 132 QRS: -60 T: -44 INTERPRETIVE STATEMENTS: Electronic ventricular pacemaker Compared to ECG 12/22/2018 01:06:22 No significant changes Electronically Signed On 12-27-18 14:41:06 CDT by Juma Dickey
== END 2018-12-26 21:15 | disposition left against medical advice (07) ==
LOC: ER 18:12
DX: K29.70 Gastritis, unspecified, without bleeding (principal); F41.9 Anxiety disorder, unspecified; F90.9 Attention-deficit hyperactivity disorder, unspecified type; I48.91 Unspecified atrial fibrillation; I25.10 Atherosclerotic heart disease of native coronary artery without angina pectoris; I50.9 Heart failure, unspecified; C44.90 Unspecified malignant neoplasm of skin, unspecified; C50.919 Malignant neoplasm of unspecified site of unspecified female breast; Z88.5 Allergy status to narcotic agent; Z88.0 Allergy status to penicillin; Z53.29 Procedure and treatment not carried out because of patient's decision for other reasons
CPT/HCPCS: 93005; 99285

== ENCOUNTER 2019-03-10 14:38 | Observation (INO) | payer OTHER ==
--- OUTSIDE RECORDS SUMMARY | 2019-03-10 14:41 | XMS REPORT ---
:1960 [facility] Address [address] [place] [address] Dr. Damon [address] [place] [id number] Care Team Providers Name Role Phone Unavailable Unavailable Unavailable Problems This patient has no known problems. Allergies, Adverse Reactions, Alerts This patient has no known allergies or adverse reactions. Medications This patient has no known medications.
--- OUTSIDE RECORDS SUMMARY | 2019-03-10 14:41 | XMS REPORT | Clinical Summary ---
:1960 Author Organization [facility] Address [address] [place] [id number] Care Team Providers Name Role Phone Asked, [...] Health Maintenance Due Date Last Done Comments BREAST CANCER SCREENING 2009 COLONOSCOPY SCREENING 2009 SHINGLES VACCINES (#1) 2009 INFLUENZA VACCINE 03/20/2019 Implants Implanted Type Area Paving Block Cutter Device Shelf Model / Identifier Expiration Serial / Date Lot Generator Quadra Assura Mp Accessories Repairer-D - [id number] - [id number] Cardiac Pacemaker N/A : [employer] 08/19/2018 [id number] / Implanted: Qty: 1 on 10/11/2016 by Kiley Carias Jr., MD Generators N/A MEDICAL [id number] / [id number] Quartet, Lv Leads, Model 1458q-86 - [id number] - [id number] Cardiac Pacing N/A : [employer] 05/19/2019 [id number] 86 / Implanted: Qty: 1 on 10/11/2016 by Kiley Carias Jr., MD Leads or N/A MEDICAL [id number] / Electrodes or [id number] Accessories Tendril Sts, Pacemaker Leads, Model 8tc/52 - [id number] - [id number] Cardiac Pacing N/A: [employer] 07/19/2019 [id number]/52 / Implanted: Qty: 1 on 10/11/2016 by Kiley Carias Jr., MD Leads or N/A MEDICAL [id number] / Electrodes or [id number] Accessories Envlp Impl Crdvrtr Dfb Antbctrl Fully Resorb Lg Aigissrx R - [id number] Cardiovascular N/A: [employer] [id number] / Implanted: 10/11/2016 (Quantity not on file) Implants N/A / Results Not on fileafter 03/09/2018 Insurance Payer Benefit Plan / Subscriber ID Effective Dates Phone Address Type Group MEDICARE MEDICARE PART A xxxxxxxxxx 2010-Present [place], [place] Medicare AND B Advance Directives Patient has advance care planning documents, and code status on file. For more information, please contact:[place] [address] Code Status Date Activated Date Inactivated Comments DNR 04/17/2017 10:02 AM 04/19/2017 4:40 PM Code Status decision reached by: Patient Full Code 04/07/2017 1:50 AM 04/17/2017 10:02 AM Code Status decision reached by: Patient
[2019-03-10 15:46] LABS: Urine Blood 2+ (NEG); Urine Glucose NEGATIVE (NEG); Urine Protein 2+ (NEG); Urine Specific Gravity 1.025 (1.005-1.030)
[2019-03-10] MEDS ORDERED: ALBUTEROL 2.5 MG/3 ML NEB SOL ONE (15:48)
[2019-03-10] MEDS ORDERED: IPRATROPIUM BROM 0.5MG/2.5ML ONE (15:49)
[2019-03-10] MEDS ORDERED: ONDANSETRON 4 MG/2 ML VIAL ONE (15:49)
[2019-03-10 17:06] LABS: Basophils % 1.1 % (0-1.3); Hematocrit 36.9 % (36.0-45.0); Lymphocytes % 16.8 % (15.3-44.8); MPV 10.1 fL (7.6-11.3); RBC Red Blood Cell Count 4.01 M/uL (3.86-4.86)
--- NOTE | 2019-03-10 17:20 | RAD REPORT ---
EXAM DESCRIPTION: RAD - Chest Single View - 03/10/2019 5:13 pm CLINICAL HISTORY: Cough;SOB Chest pain. COMPARISON: Chest Single View dated 12/16/2018; Chest Single View dated 12/13/2018; Chest Single View dated 05/04/2018; Chest Single View dated 05/03/2017 FINDINGS: Portable technique limits examination quality. Mild interstitial pulmonary edema. The heart is moderately enlarged with a multilead pacer/defibrilla tor device seen. No displaced fractures. IMPRESSION: Mild CHF.
[2019-03-10 17:27] LABS: ALT/SGPT 24 U/L (12-78); AST/SGOT 21 U/L (15-37); Albumin 3.8 g/dL (3.4-5.0); Alkaline Phosphatase 162 U/L (45-117); BUN Blood Urea Nitrogen 30 mg/dL (7-18); Bicarbonate 21 mmol/L (21-32); Bilirubin Direct 0.3 mg/dL (0-0.2); Bilirubin Total 0.7 mg/dL (0.2-1.0); Glucose Level 108 mg/dL (74-106); Magnesium 2.7 mg/dL (1.8-2.4); NT PRO-BNP 15250 pg/mL (<125); Potassium 3.7 mmol/L (3.5-5.1); Protein, Total 7.4 g/dL (6.4-8.2); Sodium Level 140 mmol/L (136-145); Troponin (Emerg Dept Use Only) < 0.02 ng/mL (0.0-0.045)
[2019-03-10 18:13] LABS: Protime INR 1.19
--- NOTE | 2019-03-10 18:45 | ER ---
Nurse's Notes [facility] Name: Lise Loera Age: 58 yrs Sex: Female : 1960 Arrival Date: 03/10/2019 Time: 14:40 Bed 20 Private MD: Andrzej Treviño S Diagnosis: Unspecified combined systolic (congestive) and diastolic (congestive) heart failure;Hypotension, unspecified Presentation: 03/10 14:55 Presenting complaint: Patient states: "I have fluid build up because I have CHF". Pt aa5 reports SOB, cough, and chest. Care prior to arrival: None. 14:55 Acuity: ESTRELLITA 3 aa5 14:55 Transition of care: patient was not received from another setting of care. Onset of aa5 symptoms was March 10, 2019. Risk Assessment: Do you want to hurt yourself or someone else? Patient reports no desire to harm self or others. Initial Sepsis Screen: Does the patient meet any 2 criteria? No. Patient's initial sepsis screen is negative. Does the patient have a suspected source of infection? No. Patient's initial sepsis screen is negative. 14:55 Method Of Arrival: Ambulatory aa5 Triage Assessment: 19:19 General: Appears. ae4 Historical: - Allergies: 14:59 Codeine; aa5 14:59 PENICILLINS; aa5 - PMHx: 14:59 ADD/ADHD; Anxiety; Atrial Fib; CAD; cancer - skin; Cancer, Breast; CHF; aa5 - PSHx: 14:59 Cholecystectomy; Pacemaker/defibrillator; aa5 - Immunization history:: Flu vaccine is up to date. - Social history:: Smoking status: Patient/guardian denies using tobacco. - Ebola Screening: : No symptoms or risks identified at this time. Screenin:19 Abuse screen: Denies threats or abuse. Nutritional screening: No deficits noted. ae4 Tuberculosis screening: No symptoms or risk factors identified. Fall Risk None identified. Assessment: 15:00 General: Appears distressed, uncomfortable, slender, Behavior is cooperative, anxious, ae4 crying, restless. Neuro: Level of Consciousness is awake, alert, obeys commands, Oriented to person, place, time, situation, Appropriate for age. Cardiovascular: Heart tones S1 S2 present Patient's skin is warm and dry. Rhythm is regular. Respiratory: Airway is patent Respiratory effort is even, unlabored, Respiratory pattern is regular, symmetrical, Breath sounds with crackles bilaterally. GI: Reports nausea. : No signs and/or symptoms were reported regarding the genitourinary system. EENT: No signs and/or symptoms were reported regarding the EENT system. Derm: Skin is pale. Musculoskeletal: Reports Generalized weakness. 16:00 Reassessment: Patient Patient insists insert IV in neck. Provider notified, ae4 provider talked to patient and provided teaching. Lab called to collect blood. 18:12 Pain: Complains of pain in right leg, left lateral ankle, left Achilles, left medial ae4 ankle and anterior aspect of left ankle. 19:15 Reassessment: Patient appears in no apparent distress at this time. Patient and/or jb4 family updated on plan of care and expected duration. Pain level reassessed. Patient is alert, oriented x 3, equal unlabored respirations, skin warm/dry/pink. 19:18 Reassessment: Patient and/or family updated on plan of care and expected duration. Pain ae4 level reassessed. Report and hand off care to DAMASO Prince. Patient states feeling better. 20:05 Reassessment: Patient appears in no apparent distress at this time. Patient and/or jb4 family updated on plan of care and expected duration. Pain level reassessed. Patient is alert, oriented x 3, equal unlabored respirations, skin warm/dry/pink. report called to DAMASO Carolina. Vital Signs: 14:58 BP 101 / 78; Pulse 88; Resp 18 S; Temp 98.0(O); Pulse Ox 97% on R/A; Weight 54.43 kg aa5 (R); Height 5 ft. 1 in. (154.94 cm) (R); Pain 10/10; 17:38 BP 96 / 50; Pulse 73; Resp 19; Pulse Ox 95% on R/A; ae4 19:30 BP 102 / 62; Pulse 73; Resp 20; Temp 98.1(O); Pulse Ox 95% on R/A; jb4 20:00 BP 112 / 52; Pulse 73; Resp 16; Pulse Ox 92% on R/A; jb4 14:58 Body Mass Index 22.67 (54.43 kg, 154.94 cm) aa5 ED Course: 14:40 Patient arrived in ED. ag5 14:42 Andrzej Treviño MD is Private Physician. ag5 14:55 Arm band placed on. aa5 15:02 Triage completed. aa5 15:02 EKG completed in triage. Results shown to MD. aa5 15:15 Major Bertrand PA is PHCP. cp 15:16 Major Sheridan MD is Attending Physician. cp 15:17 EKG done, by aviation safety equipment technician. reviewed by Major PATEL. 3 15:18 Shamar Laguerre, RN is Primary Nurse. ae4 16:04 Radiology exam delayed due to IV insertion attempt and/or patient not having az appropriate IV at this time. 16:30 Missed attempt(s): 22 gauge in left foot. patient insists IV be placed in foot. ae4 Provider notified, ok to attempt IV in foot.. 16:53 Radiology exam delayed due to IV insertion attempt and/or patient not having sw appropriate IV at this time. 17:16 XRAY Chest (1 view) In Process Unspecified. EDMS 17:39 Bed in low position. Call light in reach. Side rails up X 1. Adult w/ patient. Cardiac ae4 monitor on. Pulse ox on. NIBP on. Warm blanket given. 18:08 Inserted saline lock: 20 gauge in left EJ, using aseptic technique. ,using aseptic ae4 technique. Inserted by AMANDA Mcgowan. Blood collected. 18:31 Gian Yun MD is Attending Physician. cp 18:41 Lorena Mcneal MD is Hospitalizing Provider. cp 20:00 No provider procedures requiring assistance completed. Patient admitted, IV remains in jb4 place. Administered Medications: 15:00 Drug: Albuterol - atroVENT (3:1) (2.5 mg - 0.5 mg) 3 ml Route: Nebulizer; ae4 18:12 Follow up: Response: Wheezing diminished ae4 18:12 Drug: Zofran 4 mg Route: IVP; Site: left jugular; ae4 18:48 Follow up: Response: Nausea is decreased ae4 18:47 Drug: NS 0.9% 250 ml Route: IV; Rate: bolus; Site: left jugular; ae4 19:05 Follow up: Response: No adverse reaction; IV Status: Completed infusion; IV Intake: jb4 250ml 18:47 Drug: fentaNYL (PF) 25 mcg Route: IVP; Site: left jugular; ae4 19:15 Follow up: Response: No adverse reaction; Pain is decreased jb4 Intake: 19:05 IV: 250ml; Total: 250ml. jb4 Outcome: 18:42 Decision to Hospitalize by Provider. cp 20:19 Admitted to Tele accompanied by tech, via wheelchair, room 401, with chart, Report jb4 called to DAMASO Carolina 20:19 Condition: stable 20:19 Discharge instructions given to patient, Instructed on the need for admit, Demonstrated understanding of instructions. 20:20 Patient left the ED. jb4 Signatures: Dispatcher [employer] EDMS Kiana Alcala, RN RN aa5 Suzanne Rowland Corey, PA PA cp Bryson, James, RN RN jb4 Dominga Vogel sm3 Najma Galindo Ajare ag5 Shamar Laguerre RN RN ae4 Corrections: (The following items were deleted from the chart) 15:02 14:58 BP 101 / 78; Pulse 88bpm; Resp 18bpm; Spontaneous; Pulse Ox 97% RA; Temp 98.0F aa5 Oral; aa5 19:43 19:30 BP 102 / 62; Pulse 73bpm; Resp 20bpm; Pulse Ox 95% RA; jb4 jb4
--- NOTE | 2019-03-10 18:45 | EDPHYS ---
Physician Documentation [facility] Name: Lise Loera Age: 58 yrs Sex: Female : 1960 Arrival Date: 03/10/2019 Time: 14:40 Bed 20 Private MD: Andrzej Treviño S ED Physician Gian Yun HPI: 03/10 15:32 This 58 yrs old Female presents to ER via Ambulatory with complaints of cp Cough, fluid build up. 15:32 The patient has shortness of breath with light activity, when lying flat. Onset: The cp symptoms/episode began/occurred gradually, and became worse 1 week(s) ago. Duration: The symptoms are continuous, and are steadily getting worse. Associated signs and symptoms: Pertinent positives: non-productive cough, Pertinent negatives: chest pain, diaphoresis, dizziness, fever, hemoptysis, vomiting. Severity of symptoms: in the emergency department the symptoms are unchanged despite home interventions. Historical: - Allergies: 14:59 Codeine; aa5 14:59 PENICILLINS; aa5 - PMHx: 14:59 ADD/ADHD; Anxiety; Atrial Fib; CAD; cancer - skin; Cancer, Breast; CHF; aa5 - PSHx: 14:59 Cholecystectomy; Pacemaker/defibrillator; aa5 - Immunization history:: Flu vaccine is up to date. - Social history:: Smoking status: Patient/guardian denies using tobacco. - Ebola Screening: : No symptoms or risks identified at this time. ROS: 15:40 Constitutional: Negative for body aches, chills, fever, poor PO intake. cp 15:40 Eyes: Negative for injury, pain, redness, and discharge. cp 15:40 ENT: Negative for drainage from ear(s), ear pain, sore throat, difficulty swallowing, difficulty handling secretions. 15:40 Cardiovascular: Negative for chest pain, palpitations. 15:40 Respiratory: Positive for cough, with no reported sputum, orthopnea, shortness of breath, on exertion. Negative for hemoptysis, wheezing. 15:40 Abdomen/GI: Negative for abdominal pain, nausea, vomiting, and diarrhea. 15:40 Back: Negative for pain at rest, pain with movement. 15:40 Skin: Negative for cellulitis, rash. 15:40 Neuro: Negative for altered mental status, dizziness, headache, syncope, weakness. 15:40 All other systems are negative. Exam: 15:45 Constitutional: The patient appears in no acute distress, alert, awake, cp non-diaphoretic, non-toxic, well developed, well nourished. 15:45 Head/Face: Normocephalic, atraumatic. cp 15:45 Eyes: Periorbital structures: appear normal, Conjunctiva: normal, no exudate, no injection, Sclera: no appreciated abnormality, Lids and lashes: appear normal, bilaterally. 15:45 ENT: External ear(s): are unremarkable, Ear canal(s): are normal, clear, TM's: dullness, bilaterally, Nose: is normal, Mouth: is normal, Posterior pharynx: is normal, airway is patent, no erythema, no exudate. 15:45 Neck: ROM/movement: is normal, is supple, without pain, no range of motions limitations, no nuchal rigidity. 15:45 Chest/axilla: Inspection: normal, Palpation: is normal, no crepitus, no tenderness. 15:45 Cardiovascular: Rate: normal, Rhythm: regular, Edema: is not appreciated, JVD: is not appreciated. 15:45 Respiratory: the patient does not display signs of respiratory distress, Respirations: labored breathing, that is mild, Breath sounds: decreased breath sounds, that are mild, throughout, stridor, is not appreciated, wheezing: is not appreciated. 15:45 Abdomen/GI: Inspection: abdomen appears normal, Palpation: abdomen is soft and non-tender, in all quadrants. 15:45 Back: CVA tenderness, is absent. 15:45 Skin: no rash present. 15:45 Neuro: Orientation: to person, place \T\ time. Mentation: is normal, Cerebellar function: is grossly normal, Motor: moves all fours, strength is normal. Vital Signs: 14:58 BP 101 / 78; Pulse 88; Resp 18 S; Temp 98.0(O); Pulse Ox 97% on R/A; Weight 54.43 kg aa5 (R); Height 5 ft. 1 in. (154.94 cm) (R); Pain 10/10; 17:38 BP 96 / 50; Pulse 73; Resp 19; Pulse Ox 95% on R/A; ae4 19:30 BP 102 / 62; Pulse 73; Resp 20; Temp 98.1(O); Pulse Ox 95% on R/A; jb4 20:00 BP 112 / 52; Pulse 73; Resp 16; Pulse Ox 92% on R/A; jb4 14:58 Body Mass Index 22.67 (54.43 kg, 154.94 cm) aa5 MDM: 15:20 Patient medically screened. adriana 16:00 Differential diagnosis: CHF exacerbation, Chronic Obstructive Pulmonary Disease cp Myocardial Infarction pneumonia, pulmonary edema, Pulmonary Embolism Unstable Angina. 18:20 Data reviewed: vital signs, nurses notes, lab test result(s), radiologic studies, plain cp films. 18:35 Physician consultation: Lorena Mcneal MD was called at 18:35, was contacted at 18:35, cp regarding admission, to the telemetry unit. patient's condition. 03/10 15:16 Order name: Urine Dipstick--Ancillary (enter results); Complete Time: 17:14 bd 03/10 17:15 Interpretation: Normal except: UBLD 2+; UPROT 2+. 03/10 15:28 Order name: Basic Metabolic Panel 03/10 15:28 Order name: CBC with Diff 03/10 15:28 Order name: LFT's; Complete Time: 18:12 03/10 15:28 Order name: Magnesium; Complete Time: 18:12 03/10 15:28 Order name: NT PRO-BNP; Complete Time: 18:12 03/10 18:13 Interpretation: Abnormal: NT PRO-BNP 48854. 03/10 15:28 Order name: PT-INR; Complete Time: 18:33 03/10 15:28 Order name: Troponin (emerg Dept Use Only); Complete Time: 18:12 03/10 15:28 Order name: XRAY Chest (1 view); Complete Time: 17:25 03/10 17:24 Interpretation: Report review. 03/10 15:30 Order name: Basic Metabolic Panel; Complete Time: 18:12 EDMS 03/10 18:15 Interpretation: Normal except: GLUC 108; BUN 30; CRE 2.41; GFR 21; CA 8.4. 03/10 15:30 Order name: CBC with Automated Diff; Complete Time: 17:14 EDMS 03/10 18:14 Interpretation: Normal except: RDW 15.4; Reviewed. 03/10 15:28 Order name: EKG; Complete Time: 15:30 03/10 15:28 Order name: Cardiac monitoring; Complete Time: 17:42 03/10 15:28 Order name: EKG - Nurse/Tech; Complete Time: 18:12 03/10 15:28 Order name: IV Saline Lock; Complete Time: 18:12 03/10 15:28 Order name: Labs collected and sent; Complete Time: 17:42 03/10 15:28 Order name: O2 Per Protocol; Complete Time: 17:42 cp 03/10 15:28 Order name: O2 Sat Monitoring; Complete Time: 17:42 cp Administered Medications: 15:00 Drug: Albuterol - atroVENT (3:1) (2.5 mg - 0.5 mg) 3 ml Route: Nebulizer; ae4 18:12 Follow up: Response: Wheezing diminished ae4 18:12 Drug: Zofran 4 mg Route: IVP; Site: left jugular; ae4 18:48 Follow up: Response: Nausea is decreased ae4 18:47 Drug: NS 0.9% 250 ml Route: IV; Rate: bolus; Site: left jugular; ae4 19:05 Follow up: Response: No adverse reaction; IV Status: Completed infusion; IV Intake: jb4 250ml 18:47 Drug: fentaNYL (PF) 25 mcg Route: IVP; Site: left jugular; ae4 19:15 Follow up: Response: No adverse reaction; Pain is decreased jb4 Disposition: 03/10/19 18:42 Hospitalization ordered by Lorena Mcneal for Observation. Preliminary diagnosis are Unspecified combined systolic (congestive) and diastolic (congestive) heart failure, Hypotension, unspecified. - Bed requested for Telemetry/MedSurg (observation). - Status is Observation. jb4 - Condition is Stable. - Problem is an acute exacerbation. - Symptoms have improved. UTI on Admission? No Addendum: 03/12/2019 07:06 Co-signature as Attending Physician, Gian Yun MD. r n Signatures: Dispatcher [employer] EDMS Sigrid Pappas RN RN mw Anderson, Corey, MD MD cha Nieto, Roman, MD MD rn Calderon, Audri RN RN aa5 Major Bertrand PA PA cp Bryson, James, RN RN jb4 Shamar Laguerre RN RN ae4 Corrections: (The following items were deleted from the chart) 03/10 18:14 17:15 Reviewed. cp cp 18:14 18:14 Normal except: Reviewed. cp cp 18:15 18:13 Normal except: GLUC 108; BUN 30; CRE 2.41; GFR 21. cp cp 19:25 18:42 Hospitalization Ordered by Lorena Mcneal MD for Inpatient Admission. Preliminary cp diagnosis is Unspecified combined systolic (congestive) and diastolic (congestive) heart failure; Hypotension, unspecified. Bed requested for Telemetry/MedSurg (observation). Status is Inpatient Admission. Condition is Stable. Problem is an acute exacerbation. Symptoms have improved. UTI on Admission? No. cp 19:40 19:25 03/10/2019 18:42 Hospitalization Ordered by Lorena Mcneal MD for Observation. mw Preliminary diagnosis is Unspecified combined systolic (congestive) and diastolic (congestive) heart failure; Hypotension, unspecified. Bed requested for Telemetry/MedSurg (observation). Status is Observation. Condition is Stable. Problem is an acute exacerbation. Symptoms have improved. UTI on Admission? No. cp 19:40 19:40 03/10/2019 18:42 Hospitalization Ordered by Lorena Mcneal MD for Observation. mw Preliminary diagnosis is Unspecified combined systolic (congestive) and diastolic (congestive) heart failure; Hypotension, unspecified. Bed requested for Telemetry/MedSurg (observation). Status is Observation. Condition is Stable. Problem is an acute exacerbation. Symptoms have improved. UTI on Admission? No. 20:20 19:40 03/10/2019 18:42 Hospitalization Ordered by Lorena Mcneal MD for Observation. jb4 Preliminary diagnosis is Unspecified combined systolic (congestive) and diastolic (congestive) heart failure; Hypotension, unspecified. Bed requested for Telemetry/MedSurg (observation). Status is Observation. Condition is Stable. Problem is an acute exacerbation. Symptoms have improved. UTI on Admission? No. judy
[2019-03-10] MEDS ORDERED: FENTANYL CITR 100 MCG/2 ML ONE (18:56)
[2019-03-10] MEDS ORDERED: NA CHLORIDE 0.9% 250 ML ONE (18:57)
--- NOTE | 2019-03-10 20:05 | P.HP ---
Certification for Inpatient Patient admitted to: Observation With expected LOS: <2 Midnights Patient will require the following post-hospital care: Home Health Services Practitioner: I am a practitioner with admitting privileges, knowledge of patient current condition, hospital course, and medical plan of care. Services: Services provided to patient in accordance with Admission requirements found in Title 42 Section 412.3 of the Code of Federal Regulations Patient History Date of Service: 03/10/19 Primary Care Provider: Dr. Treviño([place]); Cardiology-Dr. Segovia Reason for admission: Shortness of breath History of Present Illness: 58-year-old female presented to the emergency room with shortness of breath. Patient with history of atrial fibrillation not on chronic anti coagulation therapy, systolic CHF, hypertension, CAD, chronic kidney disease, stage IV, prior pacemaker/defibrillator, and anxiety. Patient presented with increasing shortness of breath over the past 3 days. This has been getting worse. She denies fever, chills. She denies recent upper respiratory infection. She denies any significant swelling. Patient was last hospitalized for CHF exacerbation in November. Patient reports compliance with her medication. Prior hospitalization likely related to noncompliance. In the ER patient was stabilize. Blood pressure stable at 1 0 2/67. White count 5.9, hemoglobin 12.1, sodium 140, potassium 3.7. BUN of 30, creatinine 2.41 with a GFR 21. BNP elevated. Troponin unremarkable. Chest x-ray showed mild CHF. Patient was admitted for further evaluation and treatment. When I saw the patient the ER, she appeared stable. Increased anxiety noted. Allergies Penicillins Allergy (Intermediate, Verified 12/14/18 03:10) Hives/Rash codeine Allergy (Verified 12/14/18 03:10) Unknown Home medications list reviewed: Yes Home Medications: ALPRAZolam [Alprazolam] 1 tab PO TID 12/14/18 Amiodarone HCl [Cordarone*] 1 tab PO DAILY 12/14/18 Aspirin [Adult Low Dose Aspirin EC] 2 tab PO DAILY 12/14/18 Furosemide 3 tab PO BID 12/14/18 Potassium Chloride 1 tab PO DAILY 12/14/18 - Past Medical/Surgical History Diabetic: No -: Chronic anxiety -: Atrial fibrillation, not on chronic anti coagulation therapy -: CAD -: History pacemaker/defibrillator -: History of breast cancer -: CHF, systolic dysfunction -: cholecystectomy -: pacemaker/ defib -: R breast surg Psychosocial/ Personal History: Patient is single. She has 2 children - Family History Family History: Reviewed- Non-Contributory - Social History Smoking Status: Never smoker Alcohol use: No CD- Drugs: No Caffeine use: No Place of Residence: Home Review of Systems General: As per HPI Eyes: Unremarkable ENT: Unremarkable Respiratory: Shortness of Breath, As per HPI Cardiovascular: As per HPI Gastrointestinal: Unremarkable Genitourinary: Unremarkable Musculoskeletal: Unremarkable Integumentary: Unremarkable Neurological: Unremarkable Lymphatics: Unremarkable Physical Examination - Physical Exam General: Alert, In no apparent distress, Oriented x3, Cooperative, Other ( Increased anxiety noted) HEENT: Atraumatic, Normocephalic, PERRLA, Mucous membr. moist/pink Neck: Supple Respiratory: Crackles/rales (To the bases bilateral) Cardiovascular: Normal pulses, Regular rate/rhythm Gastrointestinal: Normal bowel sounds, Soft and benign, Non-distended, No tenderness, No masses, No rebound, No guarding Musculoskeletal: No erythema, No tenderness, No warmth Integumentary: No tenderness/swelling, No erythema, No warmth, No cyanosis Neurological: Normal speech, Normal strength at 5/5 x4 extr, Normal tone, Abnormal affect (Increased anxiety) - Studies Laboratory Data (last 24 hrs) 03/10/19 17:47: PT 13.9 H, INR 1.19 03/10/19 16:50: WBC 5.9, Hgb 12.1, Hct 36.9, Plt Count 191 03/10/19 16:50: Sodium 140, Potassium 3.7, BUN 30 H, Creatinine 2.41 H, Glucose 108 H, Magnesium 2.7 H, Total Bilirubin 0.7, AST 21, ALT 24, Alkaline Phosphatase 162 H Assessment and Plan - Plan Impression: Shortness of breath secondary to CHF exacerbation, systolic dysfunction Chronic Atrial fibrillation not on chronic anti coagulation therapy History of pacemaker/defibrillator CAD Anxiety Chronic renal disease, stage IV Plan: Shortness of breath secondary to CHF exacerbation, systolic dysfunction: Patient will be admitted for observation and treatment. Will continue with diuresis with Lasix 20 mg IV twice daily. Will teach on 1500 cc per day fluid restriction. Will order echocardiogram to reassess her CHF. Will need to verify home medication including Entresto so that this can be restarted. Will consult cardiology for further evaluation and recommendation. Compliance with medication will be addressed in detail. Anticipate improvement over the next 24 hr. Likely discharge as early as tomorrow with clinical improvement. Patient may require home oxygen at discharge. Will consult social welfare research worker to help with this. Will start DVT prophylaxis-Lovenox. Chronic Atrial fibrillation not on chronic anti coagulation therapy: Will continue with DVT prophylaxis-Lovenox. Will need to restart home medication of amiodarone. History of pacemaker/defibrillator: Overall stable. Cardiology to further evaluate CAD: Will continue with aspirin 81 mg daily. Anxiety: Will provide anxiety medication as needed. Chronic renal disease, stage IV: This appears stable at this time. Will monitor closely. Patient may require nephrology consultation as an outpatient. Future medications will need to be renally dosed. Recommend no further use of nonsteroidal anti-inflammatories. Discharge Plan: Home Plan to discharge in: 24 Hours - Advance Directives Does patient have a Living Will: No Does patient have a Durable POA for Healthcare: No - Code Status/Comfort Care Code Status Assessed: Yes (Patient is full code) Time Spent Managing Pts Care (In Minutes): 55
[2019-03-10] MEDS ORDERED: ONDANSETRON 4 MG/2 ML VIAL IV PRN (20:40)
[2019-03-10] MEDS ORDERED: ACETAMINOPHEN 500 MG TAB PO PRN (20:40)
[2019-03-10] MEDS ORDERED: ALPRAZOLAM 0.25 MG TABLET PO PRN (20:40)
[2019-03-10] MEDS ORDERED: SACUBITRIL/VALSARTAN 24/26 MG TAB PO SCH (21:00)
[2019-03-10 21:19] VITALS: BMI 23.8
[2019-03-10 23:03] LABS: Thyroid Stimulating Hormone 5.61 uIU/mL (0.360-3.740)
[2019-03-11 00:39] VITALS: O2SAT 97
[2019-03-11 01:34] LABS: CKMB Creatine Kinase MB < 1.0 ng/mL (0.3-3.6); Creatine Phosphokinase 103 U/L (26-192); Troponin I < 0.02 ng/mL (0.0-0.045)
[2019-03-11 06:38] LABS: Basophils % 0.4 % (0-1.3); Hematocrit 32.5 % (36.0-45.0); Lymphocytes % 16.9 % (15.3-44.8); MPV 10.3 fL (7.6-11.3); RBC Red Blood Cell Count 3.51 M/uL (3.86-4.86)
[2019-03-11 06:57] LABS: CKMB Creatine Kinase MB < 1.0 ng/mL (0.3-3.6); Creatine Phosphokinase 108 U/L (26-192); Magnesium 2.6 mg/dL (1.8-2.4); Potassium 4.1 mmol/L (3.5-5.1); Troponin I < 0.02 ng/mL (0.0-0.045)
--- NOTE | 2019-03-11 08:29 | RAD REPORT ---
EXAM DESCRIPTION: RAD - Chest Pa And Lat (2 Views) - 03/11/2019 6:54 am CLINICAL HISTORY: follow up CHF Chest pain. COMPARISON: Chest Single View dated 03/10/2019; Chest Single View dated 12/16/2018; Chest Single View dated 12/13/2018; Chest Single View dated 05/04/2018 FINDINGS: Mild interstitial pulmonary edema is seen with trace pleural effusions. Overall, lung aera tion is mildly improved since comparative study. The heart is significantly enlarged with multilead p acer/defibrillator device present. No displaced fractures. IMPRESSION: Mild improvement in CHF since comparative study.
[2019-03-11] MEDS ORDERED: ASPIRIN EC 81 MG TAB PO SCH (09:00)
[2019-03-11] MEDS ORDERED: ENOXAPARIN 30 MG/0.3 ML SQ SCH (09:00)
[2019-03-11] MEDS ORDERED: FUROSEMIDE 20 MG/ 2ML VIAL IV SCH (09:00)
[2019-03-11] MEDS ORDERED: AMIODARONE HCL 200 MG TAB PO SCH ×2 (09:00)
[2019-03-11] MEDS ORDERED: SACUBITRIL/VALSARTAN 24/26 MG TAB PO SCH (09:30)
--- NOTE | 2019-03-11 10:41 | EKG ---
Test Date: 2019-03-10 Test Time: 15:07:09 Department Director: [place] MEASUREMENT RESULTS: Intervals: Rate: 92 ND: 140 QRSD: 186 QT: 458 QTc: 566 [place]: P: 76 ND: 140 QRS: 122 T: -27 INTERPRETIVE STATEMENTS: Atrial-sensed ventricular-paced rhythm Biventricular pacemaker detected Abnormal ECG Compared to ECG 12/26/2018 18:29:08 No significant changes Electronically Signed On 03-11-19 10:38:35 CDT by Juma Dickey
--- NOTE | 2019-03-11 11:16 | ECHO ---
HEIGHT: 5 ft 1 in WEIGHT: 126 lb 4.8 oz DATE OF STUDY: 03/11/[address]: 2-DIMENSIONAL: YES M.MODE: YES DOPPLER: YES COLOR FLOW: YES TDS: NO PORTABLE: NO DEFINITY: NO BUBBLE STUDY: NO DIAGNOSIS: ATRIAL FIBRILLATION, CONGESTIVE HEART FAILURE CARDIAC HISTORY: CATHERIZATION: NO SURGERY: YES PROSTHETIC VALVE: NO PACEMAKER: YES MEASUREMENTS (cm) DIASTOLIC (NORMALS) SYSTOLIC (NORMALS) IVSd 0.8 (0.6-1.2) LA Diam 3.9 (1.9-4.0) LVEF 27% LVIDd 7.0 (3.5-5.7) LVIDs 6.1 (2.0-3.5) %FS 13% LVPWd 0.8 (0.6-1.2) Ao Diam 2.2 (2.0-3.7) 2 DIMENSIONAL ASSESSMENT: RIGHT ATRIUM: NORMAL LEFT ATRIUM: NORMAL RIGHT VENTRICLE: NORMAL LEFT VENTRICLE: DILATED TRICUSPID VALVE: NORMAL MITRAL VALVE: NORMAL PULMONIC VALVE: NORMAL AORTIC VALVE: NORMAL PERICARDIAL EFFUSION: NONE AORTIC ROOT: NORMAL LEFT VENTRICULAR WALL MOTION: SEVERE GLOBAL HYPOKINESIS. DOPPLER/COLOR FLOW: MILD MITRAL REGURGITATION AND TRICUSPID REGURGITATION. COMMENTS: SEVERE GLOBAL HYPOKINESIS. EJECTION FRACTION 25-27%. PACEMAKER IN RIGHT VENTRICULAR APEX. MILD MITRAL REGURGITATION AND TRICUSPID REGURGITATION. TECHNOLOGIST: PADMAJA SHANKAR RDCS
[2019-03-11 12:21] VITALS: BP 98/61; TEMP 98.4
[2019-03-11] MEDS ORDERED: LEVALBUTEROL 1.25 MG/3 ML NEB NEB ONE (12:55)
--- NOTE | 2019-03-12 01:10 | DS ---
Date of Discharge: 03/11/2019 Consultants: Dr. Dickey with Cardiology. Discharge Diagnoses: 1.Shortness of breath. 2.Acute on chronic systolic heart failure exacerbation. 3.Chronic atrial fibrillation, not on anticoagulation. 4.History of pacemaker defibrillator. 5.Coronary artery disease, kenaitze artery and kenaitze heart without angina. 6.Generalized anxiety disorder. 7.Chronic kidney disease stage 4. 8.Hypotension. 9.Hypothyroidism. Hospital Course: Patient is a 58-year-old female, comes into the hospital with shortness of breath. Patient was found to have acute on chronic exacerbation of her systolic congestive heart failure. S he had elevated BNP. Chest x-ray showed mild CHF. Patient was diuresed. Repeat chest x-ray showed improvement. Her clinical condition improved as well. Her shortness of breath improved. She was ab le to be weaned off supplemental oxygen. She was ambulating well without difficulty or any dyspnea u kiesha exertion. Her kidney function improved from 2.41 to 2.13. She was somewhat hypotensive likely d ue to her medications. She does tend to run on the low side 90s over 50s. According to the patient, she is asymptomatic. I did discuss her case with Dr. Dickey, who was consulted from Cardiology sta hipoint. He did not recommend any changes to her medications. She is on the low dose of Entresto as well. Her echocardiogram showed EF of 25% to 27%. Patient does have a pacemaker. Patient was then cleared for discharge as her condition had improved. She was transferred home in a stable condition . Medications: As per medication reconciliation list. Followup: Follow up with primary care physician in 2 to 3 days. Follow up with respiratory care program director, Dr. Milton schmidt, in 2 weeks. Recheck TSH in 6 to 8 weeks. Return to ER for worsening condition. Diet: Low-sodium, 1500 mL fluid restriction. Activity: As tolerated. No driving or operating heavy machinery while on benzodiazepines. Physical Examination: General: Awake, alert, oriented x3, in no acute distress. CV: S1, S2. Respiratory: Moving air well bilaterally. Abdomen: Soft, nontender, nondistended. Positive bowel sounds. Extremities: No clubbing, cyanosis, or edema. Neuro: Nonfocal. SA/MODL Voice ID: [id number] Report ID: [id number]
--- NOTE | 2019-03-12 10:41 | CON ---
Date of Consultation: 03/11/2019 The patient was admitted to Dr. Berkowitz's service on 03/10/2019. I saw the patient on 03/11/2019. Reason For Consultation: Congestive heart failure. History Of Present Illness: Ms. Mari is 58. She is known to us from previous office visits and hospital admissions. She has chronic systolic congestive heart failure status post defibrillator pac emaker. She has an ejection fraction about 25%. This was confirmed today on an echocardiogram. She has a history of atrial fibrillation, coronary artery disease, breast cancer, ADD, and anxiety. She came in with CHF exacerbation. Past Medical History: As stated above. Allergies: SHE IS ALLERGIC TO PENICILLIN AND CODEINE. Review of Systems: Negative. Social History: Negative. Family History: Noncontributory. Medications: At home include; Xanax, amiodarone, aspirin, Lasix 60 mg b.i.d., potassium, and Entrest o. Physical Examination: Vital Signs: By the time I saw her, she was already asymptomatic, has diuresed well. Her blood pres sure was 95/64. HEENT: Negative. Neck: Supple with no bruit, lymphadenopathy, JVD, or thyromegaly. Chest: Clear to auscultation and percussion. Cardiac: Revealed a paced rhythm. No murmurs, gallops, or rubs. Abdomen: Benign. Extremities: Revealed no clubbing, cyanosis, or edema. Skin: Dry and intact. Pulses are present distally bilaterally. Neurologic: She was nonfocal. Diagnostic Data: Creatinine of 2.3. Hemoglobin 10.5. Her BNP was 15,250. Echocardiogram showed an ejection fraction of 25%, severe global hypokinesis. Impression And Plan: 1.Acute on chronic exacerbation of systolic congestive heart failure. 2.Status post pacemaker and defibrillator. 3.Attention deficit disorder and anxiety. 4.Atrial fibrillation. 5.Coronary artery disease. 6.History of breast cancer. 7.Renal insufficiency stage IV. 8.Mild anemia. 9.Mild hypotension. History Of Present Illness: Ms. Mari has improved on her present regimen and has diuresed well. We need to continue her Entresto despite her renal dysfunction and hypotension for now. Her ejectio n fraction has actually improved slightly on the Entresto. I believe she can go home whenever it is okay with Dr. Berkowitz. We will see her in the office in the near future. No change in her outpatient medical regimen. DON/MARION Voice ID: [id number] Report ID: [id number]
== END 2019-03-11 15:06 | disposition home or self-care (01) ==
LOC: ER 14:38 → ERHOLD 19:45 → 4TH 20:08
PROVIDERS: ADMIT Family Medicine; ATTEND Family Medicine
DX: I50.23 Acute on chronic systolic (congestive) heart failure (principal); I48.2 Chronic atrial fibrillation; I25.10 Atherosclerotic heart disease of native coronary artery without angina pectoris; F98.8 Other specified behavioral and emotional disorders with onset usually occurring in childhood and adolescence; F41.1 Generalized anxiety disorder; N18.4 Chronic kidney disease, stage 4 (severe); D63.1 Anemia in chronic kidney disease; D64.9 Anemia, unspecified; E03.9 Hypothyroidism, unspecified; I95.9 Hypotension, unspecified; I34.0 Nonrheumatic mitral (valve) insufficiency; I07.1 Rheumatic tricuspid insufficiency; R94.31 Abnormal electrocardiogram [ECG] [EKG]; Z79.82 Long term (current) use of aspirin; Z79.899 Other long term (current) drug therapy; Z95.0 Presence of cardiac pacemaker; Z85.3 Personal history of malignant neoplasm of breast
CPT/HCPCS: 96365; 93005; 93306; 85025 ×2; 80048 ×2; 36415; 83735 ×2; 82550 ×2; 85610; 80061; 80076; 84443; 81003; 84484 ×3; 82553 ×2; 84439; 83880; 71045; 71046; 94640 ×2; 96375; 99285; J1650; J3010; J2405; G0378 ×2

== ENCOUNTER 2019-03-17 07:27 | Emergency (ER) | payer OTHER ==
--- OUTSIDE RECORDS SUMMARY | 2019-03-17 07:29 | XMS REPORT | Clinical Summary ---
:1960 Author Organization [facility] Address [address] [place] [id number] Care Team Providers Name Role Phone Asked, [...] INFLUENZA VACCINE 03/20/2019 Implants Implanted Type Area Piece Work Checker Device Shelf Model / Identifier Expiration Serial / Date Lot Generator Quadra Assura Mp Mass Spectrometry Manager-D - [id number] - [id number] Cardiac Pacemaker N/A : [employer] 08/19/2018 [id number] / Implanted: Qty: 1 on 10/11/2016 by Kliey Carias Jr., MD Generators N/A MEDICAL [id number] / [id number] Quartet, Lv Leads, Model 1458q-86 - [id number] - [id number] Cardiac Pacing N/A : [employer] 05/19/2019 [id number] / Implanted: Qty: 1 on 10/11/2016 by Kiley Carias Jr., MD Leads or N/A MEDICAL [id number] / Electrodes or [id number] Accessories Tendril Sts, Pacemaker Leads, Model 8tc/52 - [id number] - [id number] Cardiac Pacing N/A: [employer] 07/19/2019 [id number] / Implanted: Qty: 1 on 10/11/2016 by Kiley Carias Jr., MD Leads or N/A MEDICAL [id number] / Electrodes or [id number] Accessories Envlp Impl Crdvrtr Dfb Antbctrl Fully Resorb Lg Aigissrx R - [id number] Cardiovascular N/A: [employer] [id number] / Implanted: 10/11/2016 (Quantity not on file) Implants N/A / Results Not on fileafter 03/16/2018 Insurance Payer Benefit Plan / Subscriber ID Effective Dates Phone Address Type Group MEDICARE MEDICARE PART A xxxxxxxxxx 2010-Present [place], [place] Medicare AND B Advance Directives Patient has advance care planning documents, and code status on file. For more information, please contact:[place] [address] Code Status Date Activated Date Inactivated Comments DNR 04/17/2017 10:02 AM 04/19/2017 4:40 PM Code Status decision reached by: Patient Full Code 04/07/2017 1:50 AM 04/17/2017 10:02 AM Code Status decision reached by: Patient
--- OUTSIDE RECORDS SUMMARY | 2019-03-17 07:29 | XMS REPORT ---
:1960 Author Organization [facility] Address [address] [place] [address] Dr. Damon [address] [place] [id number] Care Team Providers Name Role Phone Unavailable Unavailable Unavailable Problems This patient has no known problems. Allergies, Adverse Reactions, Alerts This patient has no known allergies or adverse reactions. Medications This patient has no known medications.
[2019-03-17] MEDS ORDERED: ALBUTEROL 2.5 MG/3 ML NEB SOL ONE (08:16)
[2019-03-17] MEDS ORDERED: LORAZEPAM 1 MG TABLET ONE (08:16)
--- NOTE | 2019-03-17 09:17 | RAD REPORT ---
EXAM DESCRIPTION: RAD - Chest Single View - 03/17/2019 8:51 am CLINICAL HISTORY: Cough COMPARISON: March 11 TECHNIQUE: AP portable chest image was obtained 0833 hours . FINDINGS: No focal lung parenchymal process identifiable. There is a mild prominence of the lung mar kings not clearly different from comparison. Under penetrated film technique accentuate chest finding s. Cardiomegaly is present similar to the comparison. Vasculature within normal limits. Left-sided defi brillator/pacemaker in place. No measurable pleural effusion and no pneumothorax. No acute bony abnor mality seen. No acute aortic findings suspected. IMPRESSION: No acute cardiopulmonary process. Chest findings are not substantially different from comparison. Early interstitial edema or infiltrate changes can be masked by the chronic pattern.
--- NOTE | 2019-03-17 09:24 | EDPHYS ---
Physician Documentation [facility] Name: Lise Loera Age: 58 yrs Sex: Female : 1960 Arrival Date: 03/17/2019 Time: 07: Bed 16 Private MD: out of town, doctor ED Physician Mo Vanessa HPI: 03/17 07:52 This 58 yrs old Female presents to ER via Wheelchair with complaints of snw Breathing Difficulty. 07:52 The patient has shortness of breath at rest. Onset: The symptoms/episode began/occurred snw last night. Duration: The symptoms are continuous. Associated signs and symptoms: Pertinent positives: non-productive cough. Severity of symptoms: At their worst the symptoms were moderate severe in the emergency department the symptoms are unchanged. It is unknown whether or not the patient has had similar symptoms in the past. sees Dr. Treviño. Historical: - Allergies: 07:33 Codeine; ph 07:33 PENICILLINS; ph - Home Meds: 08:22 amlodipine oral once daily [Active]; Iron CR Oral daily [Active]; Lasix Oral [Active]; ph Potassium Chloride Oral once daily [Active]; Xanax 2 mg Oral tab 1 tab 3 times per day [Active]; levothyroxine oral [Active]; - PMHx: 07:33 ADD/ADHD; Anxiety; Atrial Fib; CAD; cancer - skin; Cancer, Breast; CHF; ph - PSHx: 07:33 Cholecystectomy; Pacemaker/defibrillator; ph - Immunization history:: Adult Immunizations unknown. - Ebola Screening: : No symptoms or risks identified at this time. - Social history:: Smoking status: unknown. ROS: 07:50 Eyes: Negative for injury, pain, redness, and discharge, ENT: Negative for injury, snw pain, and discharge, Neck: Negative for injury, pain, and swelling, Cardiovascular: Negative for chest pain, palpitations, and edema. 07:50 Abdomen/GI: Negative for abdominal pain, nausea, vomiting, diarrhea, and constipation, Back: Negative for injury and pain, : Negative for injury, bleeding, discharge, and swelling, MS/Extremity: Negative for injury and deformity, Skin: Negative for injury, rash, and discoloration, Neuro: Negative for headache, weakness, numbness, tingling, and seizure. 07:50 Constitutional: Positive for "allergic reaction". 07:50 Respiratory: Positive for cough, shortness of breath, wheezing. 07:50 Psych: Positive for "allergic reaction" pt states she will never take Levothyroxine again, states she did not take her ativan/xanax. Exam: 07:48 Constitutional: This is a well developed, well nourished patient who is awake, alert, snw and in no acute distress. Head/Face: Normocephalic, atraumatic. Eyes: Pupils equal round and reactive to light, extra-ocular motions intact. Lids and lashes normal. Conjunctiva and sclera are non-icteric and not injected. Cornea within normal limits. Periorbital areas with no swelling, redness, or edema. ENT: Nares patent. No nasal discharge, no septal abnormalities noted. Tympanic membranes are normal and external auditory canals are clear. Oropharynx with no redness, swelling, or masses, exudates, or evidence of obstruction, uvula midline. Mucous membranes moist. Neck: Trachea midline, no thyromegaly or masses palpated, and no cervical lymphadenopathy. Supple, full range of motion without nuchal rigidity, or vertebral point tenderness. No Meningismus. Chest/axilla: Normal chest wall appearance and motion. Nontender with no deformity. No lesions are appreciated. Cardiovascular: Regular rate and rhythm with a normal S1 and S2. No gallops, murmurs, or rubs. Normal PMI, no JVD. No pulse deficits. Abdomen/GI: Soft, non-tender, with normal bowel sounds. No distension or tympany. No guarding or rebound. No evidence of tenderness throughout. Back: No spinal tenderness. No costovertebral tenderness. Full range of motion. Skin: Warm, dry with normal turgor. Normal color with no rashes, no lesions, and no evidence of cellulitis. MS/ Extremity: Pulses equal, no cyanosis. Neurovascular intact. Full, normal range of motion. Neuro: Awake and alert, GCS 15, oriented to person, place, time, and situation. Cranial nerves II-XII grossly intact. Motor strength 5/5 in all extremities. Sensory grossly intact. Cerebellar exam normal. Normal gait. 07:48 Psych: Patient has no thoughts/intents to harm self or others. Judgement / Insight is normal. hyperverbal. 07:48 Respiratory: the patient does not display signs of respiratory distress, Respirations: snw normal, Breath sounds: wheezing: expiratory is heard in the left posterior lower lobe and right posterior lower lobe, forced cough. Vital Signs: 07:46 BP 111 / 79; Pulse 90; Resp 20 S; Temp 97.4(TE); Pulse Ox 96% on R/A; Weight 57.15 kg; iw Height 5 ft. 1 in. (154.94 cm); Pain 4/10; 09:31 BP 108 / 76; Pulse 69; Resp 20; Temp 97.8; Pulse Ox 98% on R/A; ph 07:46 Body Mass Index 23.81 (57.15 kg, 154.94 cm) iw MDM: 07:53 Patient medically screened. snw 09:24 Data reviewed: vital signs, nurses notes. Data interpreted: Pulse oximetry: on room air snw is 96 %. Interpretation: acceptable. Counseling: I had a detailed discussion with the patient and/or guardian regarding: the historical points, exam findings, and any diagnostic results supporting the discharge/admit diagnosis, radiology results, the need for outpatient follow up, to return to the emergency department if symptoms worsen or persist or if there are any questions or concerns that arise at home. Response to treatment: the patient's symptoms have markedly improved after treatment. 03/17 07:48 Order name: Chest Single View XRAY; Complete Time: 09:21 snw 03/17 07:52 Order name: Misc. Order: Med list in chart please; Complete Time: 07:54 snw 03/17 08:55 Order name: Recheck VS; Complete Time: 09:33 snw Administered Medications: 08:05 Drug: Albuterol 2.5 mg Route: Inhalation; ph 09:33 Follow up: Response: No adverse reaction ph 10:22 Not Given (Patient Refused): Ativan 2 mg PO once; please administer sublingually ph Disposition: 10:58 Co-signature as Attending Physician, Mo Vanessa MD I agree with the assessment and kdr plan of care. Disposition: 03/17/19 09:22 Discharged to Home. Impression: Cough. - Condition is Stable. - Discharge Instructions: Allergies, Adult, Cool Mist Vaporizer, Cough, Adult, [id number]. - Prescriptions for Albuterol Sulfate 90 mcg/actuation - inhale 1-2 puff by INHALATION route every 4-6 hours; 1 Inhaler. - Medication Reconciliation Form, Thank You Letter, Antibiotic Education, Prescription Opioid Use form. - Follow up: Emergency Department; When: As needed; Reason: Worsening of condition. Follow up: Private Physician; When: 1 - 2 days; Reason: Recheck today's complaints, Continuance of care, Re-evaluation by your physician. - Notes: Discuss with your PCP your refusal to take Levothyroxine. Signatures: Dispatcher [employer] EDMS Mo Vanessa MD MD kdr Sherrie Barker, LEVER TENDER-C LEVER TENDER-Csnw Loyda Ly RN RN ph Corrections: (The following items were deleted from the chart) 07:50 07:48 Psych: Patient has no thoughts/intents to harm self or others. Judgement / snw Insight is normal. hyperverbal. snw 10:23 09:22 03/17/2019 09:22 Discharged to Home. Impression: Cough. Condition is Stable. ph Forms are Medication Reconciliation Form, Thank You Letter, Antibiotic Education, Prescription Opioid Use. Follow up: Emergency Department; When: As needed; Reason: Worsening of condition. Follow up: Private Physician; When: 1 - 2 days; Reason: Recheck today's complaints, Continuance of care, Re-evaluation by your physician. snw
--- NOTE | 2019-03-17 09:24 | ER ---
Nurse's Notes [facility] Name: Lise Loera Age: 58 yrs Sex: Female : 1960 Arrival Date: 03/17/2019 Time: 07:29 Bed 16 Private MD: out of town, doctor Diagnosis: Cough Presentation: 03/17 07:43 Presenting complaint: Patient states: has had a hard time breathing, feels like throat iw is swelling, was recently started on levothyroxine last week, stopped it on Sunday because she was swelling and had difficulty breathing. Transition of care: patient was not received from another setting of care. Onset of symptoms was March 15, 2019. Risk Assessment: Do you want to hurt yourself or someone else? Patient reports no desire to harm self or others. Initial Sepsis Screen: Does the patient meet any 2 criteria? No. Patient's initial sepsis screen is negative. Does the patient have a suspected source of infection? No. Patient's initial sepsis screen is negative. Care prior to arrival: None. 07:43 Method Of Arrival: Wheelchair iw 07:43 Acuity: ESTRELLITA 3 iw Historical: - Allergies: 07:33 Codeine; ph 07:33 PENICILLINS; ph - Home Meds: 08:22 amlodipine oral once daily [Active]; Iron CR Oral daily [Active]; Lasix Oral [Active]; ph Potassium Chloride Oral once daily [Active]; Xanax 2 mg Oral tab 1 tab 3 times per day [Active]; levothyroxine oral [Active]; - PMHx: 07:33 ADD/ADHD; Anxiety; Atrial Fib; CAD; cancer - skin; Cancer, Breast; CHF; ph - PSHx: 07:33 Cholecystectomy; Pacemaker/defibrillator; ph - Immunization history:: Adult Immunizations unknown. - Ebola Screening: : No symptoms or risks identified at this time. - Social history:: Smoking status: unknown. Screenin:17 Abuse screen: Denies threats or abuse. Denies injuries from another. Nutritional ph screening: No deficits noted. Tuberculosis screening: No symptoms or risk factors identified. Fall Risk None identified. Assessment: 07:30 General: Appears in no apparent distress. comfortable, well groomed, Behavior is ph cooperative, anxious, Denies fever, feeling ill, pt very talkative, speaking in full sentences w/ no difficulty noted. Pain: Denies pain. Neuro: Level of Consciousness is awake, alert, obeys commands, Oriented to person, place, time, situation. Cardiovascular: Reports shortness of breath, Denies chest pain, nausea, palpitations, Rhythm is Respiratory: Reports shortness of breath at rest Airway is patent Respiratory effort is even, unlabored, Respiratory pattern is regular, symmetrical, Breath sounds are absent in mediastinum. GI: No signs and/or symptoms were reported involving the gastrointestinal system. Patient currently denies abdominal pain, nausea, vomiting. Derm: Skin is intact, is fragile, Skin is pink, warm \\T\\ dry. Musculoskeletal: Circulation, motion, and sensation intact. Range of motion: intact in all extremities. 08:10 Reassessment: Patient appears in no apparent distress at this time. Patient and/or ph family updated on plan of care and expected duration. Pain level reassessed. Patient is alert, oriented x 3, equal unlabored respirations, skin warm/dry/pink. Pt refusing PO Ativan, states, " What I need is some pain medication. I was up all night last night because I didn't take my Xanax, and now I'm hurting in all of my joints." ERP notified, no pain medication ordered at his time. 08:22 Reassessment: Patient appears in no apparent distress at this time. Pt again refusing ph Ativan, states, " I just really need something for pain, all of my joints are hurting, and I know that if I take that my blood pressure will go down and I won't be able to have any pain medication" Explained to the pt that the provider was not ordering any pain medication at this time since the pt is here for breathing issues and that the provider recommended the anxiety medication since the pt had not taken her at home Xanax, pt continues to refuse, states, " You can leave it here, if I take I take it, you'll know I did if it's gone, but I probably won't." Medication remains w/ nurse at this time. 09:30 Reassessment: Patient appears in no apparent distress at this time. Patient and/or ph family updated on plan of care and expected duration. Pain level reassessed. Patient is alert, oriented x 3, equal unlabored respirations, skin warm/dry/pink. Pt sitting in bed, talking on cell phone w/ no breathing difficulty noted. 09:44 Reassessment: Patient appears in no apparent distress at this time. Patient is alert, ph oriented x 3, equal unlabored respirations, skin warm/dry/pink. Attempted to d/c pt, pt requesting to speak to ERP before d/c, states, " I am not leaving here still in pain.". 10:19 Reassessment: ERP went to speak w/ pt per pt request, pt found gone from room, d/c ph paperwork also gone from room including pt and hospital copy. Vital Signs: 07:46 BP 111 / 79; Pulse 90; Resp 20 S; Temp 97.4(TE); Pulse Ox 96% on R/A; Weight 57.15 kg; iw Height 5 ft. 1 in. (154.94 cm); Pain 4/10; 09:31 BP 108 / 76; Pulse 69; Resp 20; Temp 97.8; Pulse Ox 98% on R/A; ph 07:46 Body Mass Index 23.81 (57.15 kg, 154.94 cm) iw ED Course: 07:29 Patient arrived in ED. dl4 07:29 out of town, doctor is Private Physician. dl4 07:31 Loyda Ly, RN is Primary Nurse. ph 07:31 Mo Vanessa MD is Attending Physician. kdr 07:32 [facility]C [facility]. snw 07:46 Triage completed. iw 07:46 Arm band placed on. iw 08:16 EKG done, by certified medical technician assistant. reviewed by Sherrie CARDENAS. tc 08:19 Patient has correct armband on for positive identification. Placed in gown. Bed in low ph position. Call light in reach. conveyor monitor on. Pulse ox on. NIBP on. Door closed. Noise minimized. Warm blanket given. 08:53 Chest Single View XRAY In Process Unspecified. EDMS 09:32 No provider procedures requiring assistance completed. Patient did not have IV access ph during this emergency room visit. Administered Medications: 08:05 Drug: Albuterol 2.5 mg Route: Inhalation; ph 09:33 Follow up: Response: No adverse reaction ph 10:22 Not Given (Patient Refused): Ativan 2 mg PO once; please administer sublingually ph Outcome: 09:22 Discharge ordered by . rosmery 10:21 Discharged to home ambulatory. ph 10:21 Condition: good 10:21 Discharge instructions given to patient, pt left before signing, taking hospital copy w/ her Instructed on discharge instructions, follow up and referral plans. medication usage, Prescriptions given X 1. 10:23 Patient left the ED. ph Signatures: Dispatcher [employer] EDMS Mo Vanessa MD MD [facility] Sherrie Barker, DRESSMAKER GARMENT FITTER-C DRESSMAKER GARMENT FITTER-Csnw Azalia Robertson, RN RN Viry Amaya, revenue enforcement collection agent EKG Ttc Loyda Ly RN RN Basil Medrano dl4 Corrections: (The following items were deleted from the chart) 08:38 08:22 Reassessment: Patient appears in no apparent distress at this time. Pt again ph refusing Ativan, states, " I just really need something for pain, all of my joints are hurting, and I know that if I take that my blood pressure will go down and I won't be able to have any pain medication" Explained to the pt that the provider was not ordering any pain medication at this time since the pt is here for breathing issues and that the provider recommended the anxiety medication since the pt had not taken her at home Xanax, pt continues to refuse, states, " You can leave it here, if I take I take it but I probably won't." Medication remains w/ nurse at this time ph
[2019-03-17 10:36] VITALS: BP 108/76; TEMP 97.8; O2SAT 98
--- NOTE | 2019-03-18 13:39 | EKG ---
Test Date: 2019-03-17 Test Time: 07:48:09 Stave Hewer: SCOTT MEASUREMENT RESULTS: Intervals: Rate: 83 UT: 144 QRSD: 166 QT: 470 QTc: 552 Norton: P: 83 UT: 144 QRS: -58 T: -1 INTERPRETIVE STATEMENTS: Electronic ventricular pacemaker Compared to ECG 03/10/2019 15:07:09 Atrial-sensed ventricular-paced complex(es) or rhythm no longer present Electronically Signed On 03-18-19 13:34:31 CDT by Juma Dickey
== END 2019-03-17 10:23 | disposition home or self-care (01) ==
LOC: ER 07:27
DX: R05 Cough (principal); I48.91 Unspecified atrial fibrillation; F41.9 Anxiety disorder, unspecified; I50.9 Heart failure, unspecified; Z88.0 Allergy status to penicillin; Z88.5 Allergy status to narcotic agent; Z85.3 Personal history of malignant neoplasm of breast; Z85.828 Personal history of other malignant neoplasm of skin; Z95.810 Presence of automatic (implantable) cardiac defibrillator
CPT/HCPCS: 71045; 93005; 99285

== ENCOUNTER 2020-06-18 08:09 | Emergency (ER) | payer OTHER ==
--- OUTSIDE RECORDS SUMMARY | 2020-06-18 08:20 | XMS REPORT | Summary of Care ---
:[address] [facility] Address [address] [place] [id number] Care Team Providers Name Role Phone MD Hudson Primary Care Provider Reason for Visit Reason Comments Refill Request Encounter Details Date Type Department Care Team Description 06/14/2020 Telephone [facility] Family Iris Treviño MD Refill Request Medicine - [address] [place] [address] [place] [address] [phone] Allergies Active Allergy Reactions Severity Noted Date Comments Codeine Nausea Only 05/27/2007 Penicillins Unknown - See comments 05/27/2007 Highl y allergic documented as of this encounter (statuses as of 06/14/2020) Medications Medication Sig Dispensed Refills Start Date End Date Status PROPOXYPHENE 65 MG ORAL 1 Cap Oral 60 2 06/21/2007 Active CAP Q4HPRN OMEGA 3 ORAL None Entered 0 Acti ve furosemide (LASIX) 80 mg Take 80 mg by 0 Active tablet mouth daily. DIGOXIN ORAL Take by mouth. 0 A ctive SPIRONOLACTONE ORAL Take by mouth. 0 Active ENALAPRIL MALEATE ORAL Take by mouth. 0 Active sacubitril-valsartan Take by mouth 2 0 Active (ENTRESTO) 24-26 mg Tab (two) times daily. dicyclomine (BENTYL) 20 Take 1 tablet by 20 tablet 0 9 Active mg tabletIndications: mouth 4 (four) Abdominal pain, times daily. unspecified abdominal location sulfamethoxazole-trimeth Take 1 tablet by 14 tablet 0 02/27/20 19 Active oprim (BACTRIM) 400-80 mouth 2 (two) mg per times daily. 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 Patient is requesting a call back. documented in this encounter Plan of Treatment Health Maintenance Due Date Last Done Comments PNEUMOCOCCAL 0-64 YEARS COMBINED SERIES (1 1965 of 3 - PCV13) Depression Screening 1971 DTaP,Tdap,and Td Vaccines (1 - Tdap) 1978 Breast Cancer Screening (MAMMOGRAM) 07/25/2007 07/25/2006 PAP SMEAR 06/07/2009 06/07/2006 COLON CANCER SCREENING ANNUAL FIT/FOBT 2009 COLON CANCER SCREENING FIT DNA EVERY 3 2009 YEARS COLON CANCER SCREENING SIGMOIDOSCOPY EVERY 2009 5 YEARS COLONOSCOPY 2009 Colorectal Cancer Screening 2009 Zoster Recombinant Vaccine (SHINGRIX) (1 2009 of 2) LUNG CANCER SCREEN: Recommended for age 0209/28/2014 55-80 with 30 + pack year history INFLUENZA VACCINE (#1) 2020 HEPATITIS C (HCV) SCREEN Completed 09/24/2017, 08/09/2006 documented as of this encounter Results Not on filedocumented in this encounter Insurance Payer Benefit Plan / Subscriber ID Effective Dates Phone Addre ss Type Group MEDICARE MEDICARE PART [id number] 2010-Kat [phone] Medicare A & B t 2 [id number] [place] [id number] documented as of this encounter
--- OUTSIDE RECORDS SUMMARY | 2020-06-18 08:20 | XMS REPORT | Clinical Summary ---
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 CARDIAC CATHETERIZATION 04/10/2017 N/A Procedur e: Cv right heart cath - Please le ave in triple lumen; S urgeon: Los eckert MD; Location: [facility] th Lab Invasive Locatio n; Service: Cardiov ascular; Laterality: N/A; CARDIAC CATHETERIZATION 04/10/2017 N/A Procedur e: Cv non tunneled catheter inserti on; Surgeon: Los Hendrix MD ; Location: [facility] Ca th Lab Invasive Locatio n; Service: Cardiov ascular; Laterality: N/A; CARDIAC ELECTROPHYSIOLOGY 04/09/2017 N/A Proced ure: Ep cardioversion PROCEDURE aborted lacy perf ormed; Surgeon: Kiley ramirez Jr., MD; Location: [facility] House Painter Invasive Locatio n; Service: Cardiov ascular; Laterality: N/A; DECLAN clot Medical History Medical History Date Comments CHF (congestive heart failure) (HCC) Cancer (HCC) Anxiety Delirium due to multiple etiologies 04/11/2017 Arrhythmia Deep vein thrombosis (HCC) Family History Medical History Relation Name Comments Heart disease Father Liver disease Mother Relation Name Status Comments Father Mother Social History Tobacco Use Types Packs/Day Years Used Date Former Smoker Cigarettes Tobacco Cessation: Counseling Given: No Alcohol Use Drinks/Week oz/Week Comments No Sex Assigned at Date Recorded Not on file Last Filed Vital Signs Not on file Plan of Treatment Health Maintenance Due Date Last Done Comments CERVICAL CANCER SCREENING 1980 BREAST CANCER SCREENING 2009 COLONOSCOPY SCREENING 2009 SHINGLES VACCINES (#1) 2009 INFLUENZA VACCINE 03/20/2020 Implants Implanted Type Area Clinical Data Management Manager Device Shelf Model / Identifier Expiration Serial / Date Lot Generator Marko Willett Mp Svp Programmatic Tv-D - [id number] - [id number] Cardiac Pacemaker N/A: [employer]. [employer]A 08/19/2018 [id number] / Implanted: Qty: 1 on 10/11/2016 by Kiley Carias Jr., M D at [facility] Generators N/A MEDICAL [id number] / [id number] Quartet, Lv Leads, Model [id number] - [id number] - [id number] Cardi ac Pacing N/A: [employer]. ADWOA 05/19/2019 [id number] / Implanted: Qty: 1 on 10/11/2016 by Kiley Carias Jr., M D at [facility] Leads or N/A MEDICAL [id number] / Electrodes or [id number] Accessories Tendril Sts, Pacemaker Leads, Model [id number] - [id number] - [id number] Cardiac Pacing N/A: [employer]. ADWOA 07/19/20198TC/52 / Implanted: Qty: 1 on 10/11/2016 by Kiley Carias Jr., M D at [facility] Leads or N/A MEDICAL [id number] / Electrodes or [id number] Accessories Envlp Impl Crdvrtr Dfb Antbctrl Fully Resorb Lg Aigiss rx R - [id number] Cardiovascular N/A: [employer] [id number] / Implanted: 10/11/2016 at [facility] (Quantity not on file) Implants N/A / Results Not on fileafter 06/18/2019 Insurance Payer Benefit Plan / Subscriber ID Effective Dates Phone Addre ss Type Group MEDICARE MEDICARE PART A [id number] 2010-Present [place] Medicare AND B Advance Directives For more information, please contact: [phone] Type Date Recorded 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
--- OUTSIDE RECORDS SUMMARY | 2020-06-18 08:20 | XMS REPORT | Summary of Care ---
:1960 Author Organization [facility] Address [address] [place] [address] Care Team Providers Name Role Phone MD Hudson Primary Care Provider Reason for Visit Reason Comments Refill Request Encounter Details Date Type Department Care Team Description 06/14/2020 Telephone [facility] Family Iris Treviño MD Refill Request Medicine - [address] [place] [address] [place] [address] [phone] Allergies Active Allergy Reactions Severity Noted Date Comments Codeine Nausea Only 05/27/2007 Penicillins Unknown - See comments 05/27/2007 Highl y allergic documented as of this encounter (statuses as of 06/15/2020) Medications Medication Sig Dispensed Refills Start Date [...] as of this encounter (statuses as of 06/15/2020) Active Problems Problem Noted Date Malignant neoplasm of lower-inner quadrant of female b reast 07/04/2007 Generalized anxiety disorder 05/27/2007 documented as of this encounter (statuses as of 06/15/2020) Social History Tobacco Use Types Packs/Day Years Used Date Former Smoker Smokeless Tobacco: Never Used Sex Assigned at Date Recorded Not on file documented as of this encounter Last Filed Vital Signs Not on filedocumented in this encounter Miscellaneous Notes Telephone Encounter - Chiqui Gonzales LVN - 06/15/2020 8:23 AM CDTPatient notified that she will need to be seen does not want to be seen through urgent care only wants to see Dr Treviño. Appointment made for first available Sunday this week. elephone Encounter - Lori Rangel - 06/14/2020 9:07 AM CDTPatient is calling stating that she has a UTI and is wanting to know if BACTRIM can be called into the pharmacy. Patient is requesting a call back. documented in this encounter Plan of Treatment Date Type Specialty Care Team Description 06/17/2020 Office Visit Family Medicine Andrzej Treviño MD [address] [place] [address] [phone] Health Maintenance Due Date Last Done Comments [...] Addre ss Type Group MEDICARE MEDICARE PART [id number] 2010-Kat [phone] [facility] Medicare A & B t 2 [id number] AMANDA VALERA [phone] documented as of this encounter
--- OUTSIDE RECORDS SUMMARY | 2020-06-18 08:20 | XMS REPORT | Summary of Care ---
:1960 Author Organization [facility] Address [address] [place] [address] Care Team Providers Name Role Phone MD Hudson Primary Care Provider Reason for Visit Reason Comments Refill Request Encounter Details Date Type Department Care Team Description 06/01/2020 Refill [facility] Family Medicine Andrzej Miller MD Refill Request - [address] [place] [address] [place] [address] [phone] Allergies Active Allergy Reactions Severity Noted Date Comments Codeine Nausea Only 05/27/2007 Penicillins Unknown - See comments 05/27/2007 Highl y allergic documented as of this encounter (statuses as of 06/02/2020) Medications Medication Sig Dispensed Refills Start Date End Date Status PROPOXYPHENE 65 MG 1 Cap Oral 60 2 06/21/2007 Active ORAL CAP Q4HPRN OMEGA 3 ORAL None Entered 0 Acti ve furosemide (LASIX) Take 80 mg 0 Active 80 mg tablet by mouth daily. DIGOXIN ORAL Take by 0 Active mouth. SPIRONOLACTONE ORAL Take by 0 Active mouth. ENALAPRIL MALEATE Take by 0 Ac tive ORAL mouth. sacubitril-valsarta Take by 0 Active n (ENTRESTO) 24-26 mouth 2 mg Tab (two) times daily. dicyclomine Take 1 20 tablet 0 12/24/2018 Active (BENTYL) 20 mg tablet by tabletIndications: mouth 4 Abdominal pain, (four) times unspecified daily. abdominal location sulfamethoxazole-tr Take 1 14 tablet 0 02/26/2019 Active imethoprim tablet by (BACTRIM) 400-80 mg mouth 2 per (two) times tabletIndications: daily. 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 She wants to get this at the [facility] now will need to send a new script. Last filled [facility] on 05/04/2020 for a one month supply. ALPRAZolam 2 mg tablet 90 tablet 5 02/26/2020 [id number] - [place], [place] - [address] [facility] elephone Encounter - Ioana Kimbrough - 06/01/2020 11:20 AM CDTPatient is requesting for medication to be changed to [facility] in [place], please call patient back in regards to this encounter to inform patient when medication has been transferred. documented in this encounter Plan of Treatment [...] Results Not on filedocumented in this encounter Visit Diagnoses Diagnosis Generalized anxiety disorder documented in this encounter Insurance Payer Benefit Plan / Subscriber ID Effective Dates Phone Addre ss Type Group MEDICARE MEDICARE PART [id number] 2010-Kat [phone] [facility] Medicare A & B t 2 [id number] AMANDA VALERA [phone] documented as of this encounter
--- OUTSIDE RECORDS SUMMARY | 2020-06-18 08:20 | XMS REPORT | Continuity of Care Document ---
:1960 Author Organization [facility] t Address [address] [place] [address] Care Team Providers Name Role Phone Asked, Pcp Primary Care Physician Unavailable Hudson NAVARRO Attending Clinician Problems Condition Condition Condition Status Onset Resolution Last Treating Co mments Source Name Details Category Date Date Treatment Clinician Date Hypokalemi Hypokalemi Disease Active [place] a a 9-15 [facility] 00:00: st 00 VT VT Disease Active [place] (ventricul (ventricul 15 Me thodi ar ar 00:00: st tachycardi tachycardi 00 a) a) Delirium Delirium Disease Active [place] due to due to 04-11 [facility] multiple multiple 00:00: st etiologies etiologies 00 A-fib A-fib Disease Active [place] 04-10 Methodi 00:00: st 00 Cardiogeni Cardiogeni Disease Active [place] c shock c shock 04-10 Methodi 00:00: st 00 Atrial Atrial Disease Active [place] fibrillati fibrillati 04-09 Me thodi on on 00:00: st 00 Anxiety Anxiety Disease Active [place] 04-07 Methodi 00:00: st 00 Acute Acute Disease Active [place] right right 04-07 [facility] otitis otitis 00:00: st media media 00 Shortness Shortness Disease Active Jamie ston of breath of breath 04-06 Meth chris 00:00: st 00 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 2-22 Method i and and 00:00: st diastolic diastolic 00 congestive congestive heart heart failure failure Allergies, Adverse Reactions, Alerts Allergy Allergy Status Severity Reaction(s) Onset Inactive Treating Comm ents Source Name Type Date Date Clinician Courtney Fordi Active Anaphylaxis [place] ins ty to 8-18 [facility] adverse 00:00: st reaction 00 s to drug Codeine Propensi Active GI Vomiting [place] ty to Intolerance 2-22 Metho di adverse 00:00: st reaction 00 s to drug Family History Family Member Diagnosis Comments Start Date Stop Date Source Natural father Heart disease [facility] Natural mother Liver disease [facility] Social History Social Habit Start Date Stop Date Quantity Comments Source History of Cigarette Smoker [facility] tobacco use Sex Assigned At [facility]ist Alcohol intake 2017-05-22 2017-05-22 [facility] non-drinker of alcohol (finding) Smoking Status Start Date Stop Date Source Former smoker 2017-05-22 00:00:00 2017-05-22 00:00:00 [place] [facility] Medications Ordered Filled Start Stop Current Ordering Indication Dosage Frequency Signature Comments Components Source Medication Medication Date Date Medication? Clinician (SIG) Name Name spironolact Yes .5mg QD Take 0.5 Ho noe one 9-16 mg by [facility] (ALDACTONE) 10:58: mouth st 25 MG 05 daily. tablet ALPRAZolam Yes 2mg [id number] Take 2 mg [place] (XANAX) 2 9-16 [id number] by mouth 3 [facility] MG tablet 10:58: 3D (three) st 05 times a day. Procedures This patient has no known procedures. Plan of Care Planned Activity Planned Date Details Comments Source Future Scheduled 2020-03-20 INFLUENZA VACCINE [place] [facility] 00:00:00 [code = INFLUENZA VACCINE] Future Scheduled 2009 BREAST CANCER [facility]ist Test 00:00:00 SCREENING [code = BREAST CANCER SCREENING] Future Scheduled 2009 COLONOSCOPY SCREENING [place] [facility] 00:00:00 [code = COLONOSCOPY SCREENING] Future Scheduled 2009 SHINGLES VACCINES [place] [facility] 00:00:00 (#1) [code = SHINGLES VACCINES (#1)] Future Scheduled 1980 Screening for [facility]ist Test 00:00:00 malignant neoplasm of cervix (procedure) [code = 098557532] Encounters Start End Encounter Admission Attending Care Care Encounter Source Date/Time Date/Time Type Type Clinicians Facility Department ID 2020-06-17 2020-06-17 Office MOLLY Treviño [id number] 30 14:05:17 14:53:39 [facility] [id number] [place] [id number] [id number] [facility] [address] Office [address] Results This patient has no known results.
--- OUTSIDE RECORDS SUMMARY | 2020-06-18 08:21 | XMS REPORT | Summary of Care ---
:1960 Author Organization [facility] Address [address] [place] [address] Care Team Providers Name Role Phone MD Hudson Primary Care Provider Reason for Referral (Routine) Status Reason Specialty Diagnoses / Referred By Referred To Procedures Contact Contact New Request Cardiology Diagnoses Pacemaker Andrzej Treviño, Procedures CONSULT/REFERRAL CARDIOLOGY [address] [place] [phone] Reason for Visit Reason Comments UTI s/s x 1 week Encounter Details Date Type Department Care Team Description 06/17/2020 Office Visit [facility] Family Iris Treviño MD Urinary tract infection without hematuri a, site unspecified (Primary Dx); Medicine - [address] Pacemaker [address] [place] [phone] Allergies Active Allergy Reactions Severity Noted Date Comments Codeine Nausea Only Medium 05/27/2007 Other reaction( s): GI Intolerance Vomiting Penicillins Unknown - See comments, High 05/27/2007 High ly allergic Anaphylaxis documented as of this encounter (statuses as of 06/17/2020) Medications Medication Sig Dispensed Refills Start Date End Date Status PROPOXYPHENE 65 MG 1 Cap Oral 60 2 06/21/2007 Active ORAL CAP Q4HPRN OMEGA 3 ORAL None Entered 0 Acti ve furosemide (LASIX) Take 80 mg 0 Active 80 mg tablet by mouth daily. DIGOXIN ORAL Take by 0 Active mouth. ENALAPRIL MALEATE Take by 0 Ac tive ORAL mouth. sacubitril-valsarta Take by 0 Active n (ENTRESTO) 24-26 mouth 2 mg Tab (two) times daily. dicyclomine Take 1 20 tablet 0 12/24/2018 Active (BENTYL) 20 mg tablet by tabletIndications: mouth 4 Abdominal pain, (four) times unspecified daily. abdominal location ALPRAZolam 2 mg TAKE 1 90 tablet 1 06/02/2020 Act jackson tabletIndications: TABLET BY Generalized anxiety MOUTH THREE disorder TIMES DAILY NEEDED spironolactone 25 Take 0.5 mg 0 Active mg tablet by mouth. ciprofloxacin HCl Take 1 14 tablet 0 06/17/2020 A ctive (CIPRO) 250 mg tablet by tabletIndications: mouth every Urinary tract 12 (twelve) infection without hours. hematuria, site unspecified ciprofloxacin HCl Take 1 14 tablet 0 06/17/2020 A ctive (CIPRO) 250 mg tablet by tabletIndications: mouth every Urinary tract 12 (twelve) infection without hours. hematuria, site unspecified SPIRONOLACTONE ORAL Take by 0 Discontinued mouth. 0 (Patient Reported) sulfamethoxazole-tr Take 1 14 tablet 0 02/26/2019 Discontinued imethoprim tablet by 0 (Patient (BACTRIM) 400-80 mg mouth 2 Reported) per (two) times tabletIndications: daily. Burning with urination furosemide 20 mg Take 80 mg 0 05/14/2020 D iscontinued tablet by mouth 2 0 (Patient (two) times Reported ) daily. ALPRAZolam 2 mg Take 2 mg by 0 D iscontinued tablet mouth. 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 documented as of this encounter Last Filed Vital Signs Vital Sign Reading Time Taken Comments Blood Pressure 104/70 06/17/2020 2:27 PM CDT Pulse 79 06/17/2020 2:27 PM CDT Temperature - - Respiratory Rate - - Oxygen Saturation - - Inhaled Oxygen Concentration - - Weight 55.1 kg (121 lb 6.4 oz) 06/17/2020 2:27 PM CDT Height 160 cm (5' 3") 06/17/2020 2:27 PM CDT Body Mass Index 21.51 06/17/2020 2:27 PM CDT documented in this encounter Progress Notes Andrzej Treviño MD - 06/17/2020 2:30 PM CDT Cc: possible uti Chief Complaint Patient presents with UTI s/s x 1 week Lise Mari is a 59 year old female. Here for uti, heart issues Allergies Lise is allergic to codeine and pcn [penicillins]. Medications Outpatient Medications Prior to Visit Medication Sig Dispense Refill ALPRAZolam 2 mg tablet TAKE 1 TABLET BY MOUTH THREE TIMES DAILY NEEDED 90 tablet 1 sulfamethoxazole-trimethoprim (BACTRIM) 400-80 mg per tablet Take 1 tablet by mouth 2 (two) times daily. 14 tablet 0 dicyclomine (BENTYL) 20 mg tablet Take 1 tablet by mouth 4 (four) times daily. 20 tablet 0 sacubitril-valsartan (ENTRESTO) 24-26 mg Tab Take by mouth 2 (two) times daily. DIGOXIN ORAL Take by mouth. ENALAPRIL MALEATE ORAL Take by mouth. furosemide (LASIX) 80 mg tablet Take 80 mg by mouth daily. SPIRONOLACTONE ORAL Take by mouth. OMEGA 3 ORAL None Entered PROPOXYPHENE 65 MG ORAL CAP 1 Cap Oral Q4HPRN 60 2 No facility-administered medications prior to visit. Histories Past Medical History: Diagnosis Date Anxiety Cancer h/o breast cancer CHF (congestive heart failure) Hypertension ICD (implantable cardioverter-defibrillator) in place Past Surgical History: Procedure Laterality Date AUGMENTATION MAMMOPLASTY 08/11/06 AUGMENTATION MAMMOPLASTY 04/15/04 BREAST LUMPECTOMY 06/20/07 Rt breast w/axillary dissection SECTION 08/20/83 MANDIBULAR LESION ENUCLEATION & CURETTAGE Left 05/10/2016 Surgeon: Romeo Beltre; [facility] OTHER 03/09/05 implant deflated and replaced TOOTH EXTRACTION Left 05/10/2016 Surgeon: Romeo Beltre; [facility] Social History Socioeconomic History Marital status: Single Spouse name: Not on file Number of children: Not on file Years of education: Not on file Highest education level: Not on file Occupational History Not on file Social Needs Financial resource strain: Not on file Food insecurity Worry: Not on file Inability: Not on file Transportation needs Medical: Not on file Non-medical: Not on file Tobacco Use Smoking status: Former Smoker Smokeless tobacco: Never Used Substance and Sexual Activity Alcohol use: Not on file Drug use: Not on file Sexual activity: Not on file Lifestyle Physical activity Days per week: Not on file Minutes per session: Not on file Stress: Not on file Relationships Social connections Talks on phone: Not on file Gets together: Not on file Attends nondenominational service: Not on file Active member of club or organization: Not on file Attends meetings of clubs or organizations: Not on file Relationship status: Not on file Intimate partner violence Fear of current or ex partner: Not on file Emotionally abused: Not on file Physically abused: Not on file Forced sexual activity: Not on file Other Topics Concern Not on file Social History Narrative Not on file Family History Problem Relation Age of Onset Heart Father Heart Paternal Grandfather Review of Systems Vital Signs There were no vitals taken for this visit. Physical Exam Vitals signs reviewed. Constitutional: Appearance: Normal appearance. HENT: Head: Normocephalic. Neck: Musculoskeletal: Normal range of motion and neck supple. Cardiovascular: Rate and Rhythm: Normal rate and regular rhythm. Pulses: Normal pulses. Heart sounds: Normal heart sounds. Pulmonary: Effort: Pulmonary effort is normal. Abdominal: General: Abdomen is flat. Musculoskeletal: Normal range of motion. Skin: General: Skin is warm and dry. Neurological: General: No focal deficit present. Mental Status: She is alert. Assessment/Plan UTI, cipro Pacemaker status, cardiology consult This visit did not involve counseling and coordination that comprised more than 50% of the visit time. documented in this encounter Plan of Treatment Health Maintenance Due Date Last Done Comments PNEUMOCOCCAL 0-64 YEARS 1965 COMBINED SERIES (1 of 3 - PCV13) DTaP,Tdap,and Td Vaccines (1 1978 - Tdap) Breast Cancer Screening 07/25/2007 07/25/2006 (MAMMOGRAM) PAP SMEAR 06/07/2009 06/07/2006 COLON CANCER SCREENING ANNUAL 2009 FIT/FOBT COLON CANCER SCREENING FIT 2009 DNA EVERY 3 YEARS COLON CANCER SCREENING 2009 SIGMOIDOSCOPY EVERY 5 YEARS COLONOSCOPY 2009 Colorectal Cancer Screening 2009 Zoster Recombinant Vaccine 2009 (SHINGRIX) (1 of 2) LUNG CANCER SCREEN: 2014 Recommended for age 55-80 with 30 + pack year history INFLUENZA VACCINE (#1) 2021 Postponed from 04/20/2020 (Refused) Depression Screening 06/17/2021 06/17/2020 HEPATITIS C (HCV) SCREEN Completed 09/24/2017, 08/09/2006 documented as of this encounter Results Not on filedocumented in this encounter Visit Diagnoses Diagnosis Urinary tract infection without hematuri a, site unspecified - Primary Pacemaker Cardiac pacemaker in situ documented in this encounter Insurance Payer Benefit Plan / Subscriber ID Effective Dates Phone Addre ss Type Group MEDICARE MEDICARE PART [id number] 2010-Kat [phone] [address] Medicare A & B t 2 [id number] BADINAMANDA [id number] documented as of this encounter
--- OUTSIDE RECORDS SUMMARY | 2020-06-18 08:21 | XMS REPORT | Summary of Care ---
:1960 Author Organization [facility] Address [address] [place] [id number] Care Team Providers Name Role Phone MD Hudson Primary Care Provider Reason for Referral (Routine) Status Reason Specialty Diagnoses / Referred By Referred To Procedures Contact Contact New Request Cardiology Diagnoses Pacemaker Andrzej Treviño, Procedures CONSULT/REFERRAL CARDIOLOGY [address] [place] [phone] Reason for Visit Reason Comments UTI s/s x 1 week Encounter Details Date Type Department Care Team Description 06/17/2020 Office Visit [facility] Family Iris Treviño MD Urinary tract infection without hematuri a, site unspecified (Primary Dx); Medicine - [address] Pacemaker; [address] [place] [address] [place] [phone] Allergies Active Allergy Reactions Severity Noted Date [...] Romeo Beltre; Location: [facility] Location OTHER 03/09/05 implant deflated and replaced TOOTH [...] file Gets together: Not on file Attends worship service: Not on file Active member of [...] the visit time. documented in this encounter Miscellaneous Notes Addendum Note - Lucie Wilder LVN - 06/17/2020 2:30 PM CDT Addended by: LUCIE WILDER on: 06/17/2020 02:53 PM Modules accepted: Orders documented in this encounter Plan of Treatment Date Type Specialty Care Team Description 06/22/2020 Office Visit Cardiology Deysi Jaquez MD [address] [place] [phone] 09/01/2020 Office Visit Family Medicine Andrzej Treviño MD [address] [place], [place] [phone] Name Type Priority Associated Diagnoses Order S chedule URINE CULTURE LAB Routine Urinary tract infection wit hout Ordered: 06/17/2020 hematuria, site unspecified Health Maintenance Due Date Last Done Comments [...] 09/24/2017, 08/09/2006 documented as of this encounter Procedures Procedure Name Priority Date/Time Associated Diagnosis Comme nts POCT URINALYSIS Routine 06/17/2020 2:49 PM UTI symptoms Resul ts for this CDT procedure are i n the results section. documented in this encounter Results POCT URINALYSIS W SPECIFIC GRAVITY (06/17/2020 2:49 PM CDT) Pathologist Sig nature POCT U SP GRAV 1.025 1.005 - 1.025 mg/dl POCT PH U 6 5 - 8 mg/dl POCT U LEUK EST trace (A) Negative - Negative POCT U NIT negative Negative - Negative POCT U PROT negative Negative - Negative POCT U GLU negative Negative - Negative POCT U KETONE negative Negative - Negative POCT U UROBILI normal 0.2 - 1 mg/dl POCT U BILI +++ Negative - Negative POCT U BLD 250 (A) Negative - Negative POCT U COLOR light yellow POCT U APPEAR clear Specimen Urine - URINE, CLEAN CATCH documented in this encounter Visit Diagnoses Diagnosis Urinary tract infection without hematuri a, site unspecified - Primary Pacemaker Cardiac pacemaker in situ UTI symptoms documented in this encounter Insurance Payer Benefit Plan / Subscriber ID Effective Dates Phone Addre ss Type Group MEDICARE MEDICARE PART [id number] 2010-Kat [phone] [address] Medicare A & B t 2 [id number] AMANDA VALERA [phone] documented as of this encounter
--- OUTSIDE RECORDS SUMMARY | 2020-06-18 08:21 | XMS REPORT | Summary of Care ---
:1960 Author Organization [facility] Address [address] [place] [address] Care Team Providers Name Role Phone MD Hudson Primary Care Provider Reason for Referral (Routine) Status Reason Specialty Diagnoses / Referred By Referred To Procedures Contact Contact New Request Cardiology Diagnoses Pacemaker Andrzej Treviño, Procedures CONSULT/REFERRAL CARDIOLOGY [address] [place] [phone] Reason for Visit Reason Comments UTI s/s x 1 week Encounter Details Date Type Department Care Team Description 06/17/2020 Office Visit [facility] Family Iris Treviño MD Urinary tract infection without hematuri a, site unspecified (Primary Dx); Medicine - [address] Pacemaker; [address] [place] [address] [place] [phone] Allergies Active Allergy Reactions Severity Noted Date [...] file Gets together: Not on file Attends catholic service: Not on file Active member of [...] Cardiology Deysi Jaquez MD [address] [place] [phone] 09/01/2020 Office Visit Family Medicine Andrzej Treviño MD [address] [place], [place] [phone] Name Type Priority Associated [...] Addre ss Type Group MEDICARE MEDICARE PART [id number] 2010-Kat [phone] [address] Medicare A & B t 2 [id number] AMANDA VALERA [phone] documented as of this encounter
--- OUTSIDE RECORDS SUMMARY | 2020-06-18 08:21 | XMS REPORT | Summary of Care ---
:[address] [facility] Address [address] [place] [address] Care Team Providers Name Role Phone MD Hudson Primary Care Provider Reason for Referral (Routine) Status Reason Specialty Diagnoses / Referred By Referred To Procedures Contact Contact New Request Cardiology Diagnoses Pacemaker Andrzej Treviño, Procedures CONSULT/REFERRAL CARDIOLOGY [address] [place] [phone] Reason for Visit Reason Comments UTI s/s x 1 week Encounter Details Date Type Department Care Team Description 06/17/2020 Office Visit [facility] Family Iris Treviño MD Urinary tract infection without hematuri a, site unspecified (Primary Dx); Medicine - [address] Pacemaker [address] [place] [phone] Allergies Active Allergy Reactions Severity Noted Date [...] file Gets together: Not on file Attends pentecostal service: Not on file Active member of [...] Addre ss Type Group MEDICARE MEDICARE PART [id number] 2010-Kat [phone] [address] Medicare A & B t 2 [id number] TOTZAMANDA [phone] documented as of this encounter
[2020-06-18] MEDS ORDERED: ONDANSETRON 4 MG (ODT) TAB ONE (09:07)
[2020-06-18] MEDS ORDERED: MORPHINE 4 MG/ML SYR ONE (09:07)
--- NOTE | 2020-06-18 09:49 | EDPHYS ---
Physician Documentation [facility] Name: Lise Loera Age: 59 yrs Sex: Female : 1960 Arrival Date: 06/18/2020 Time: 08:12 Bed 18 Private MD: ED Physician Mo Vanessa HPI: 06/18 15:11 This 59 yrs old Female presents to ER via Wheelchair with complaints of kdr Shoulder Injury. 15:11 The patient or guardian complains of decreased range of motion, an injury, pain, that kdr is acute, tenderness. left shoulder. Context: The problem was sustained at home, resulted from a fall, Standing on step sttol, The patient experiences decreased range of motion, The patient reports no obvious deformity. Onset: The symptoms/episode began/occurred suddenly, just prior to arrival. Modifying factors: the symptoms are alleviated by remaining still, shoulder immobilizer, The symptoms are aggravated by movement, rotation of arm. Associated signs and symptoms: The patient has no apparent associated signs or symptoms. Severity of symptoms: At their worst the symptoms were moderate, in the emergency department the symptoms have improved, mildly. Treatment prior to arrival includes: no previous treatment. The patient has not experienced similar symptoms in the past. The patient has not recently seen a physician. Historical: - Allergies: 08:37 Codeine; bp 08:37 PENICILLINS; bp - Home Meds: 08:37 None [Active]; bp - PMHx: 08:37 CHF; Cancer, Breast; cancer - skin; CAD; Anxiety; Atrial Fib; ADD/ADHD; Pacemaker; bp Hypertension; Myocardial infarction; - Immunization history:: Adult Immunizations unknown. - Social history:: Smoking status: Patient reports the use of cigarette tobacco products, unknown amount. ROS: 15:11 Constitutional: Negative for fever, chills, and weight loss, Eyes: Negative for injury, kdr pain, redness, and discharge, ENT: Negative for injury, pain, and discharge, Neck: Negative for injury, pain, and swelling, Cardiovascular: Negative for chest pain, palpitations, and edema, Respiratory: Negative for shortness of breath, cough, wheezing, and pleuritic chest pain, Abdomen/GI: Negative for abdominal pain, nausea, vomiting, diarrhea, and constipation, Back: Negative for injury and pain, : Negative for injury, bleeding, discharge, and swelling, Skin: Negative for injury, rash, and discoloration, Neuro: Negative for headache, weakness, numbness, tingling, and seizure activity. Psych: Negative for depression, anxiety, suicide ideation, homicidal ideation, and hallucinations, Allergy/Immunology: Negative for hives, rash, and allergies, Endocrine: Negative for neck swelling, polydipsia, polyuria, polyphagia, and marked weight changes, Hematologic/Lymphatic: Negative for swollen nodes, abnormal bleeding, and unusual bruising. 15:11 MS/extremity: Positive for injury or acute deformity, decreased range of motion, pain, of the chest, anterior aspect of left shoulder and posterior aspect of left shoulder. Exam: 15:11 Constitutional: This is a well developed, well nourished patient who is awake, alert, kdr and in no acute distress. Head/Face: Normocephalic, atraumatic. Eyes: Pupils equal round and reactive to light, extra-ocular motions intact. Lids and lashes normal. Conjunctiva and sclera are non-icteric and not injected. Cornea within normal limits. Periorbital areas with no swelling, redness, or edema. Neck: Trachea midline, no thyromegaly or masses palpated, and no cervical lymphadenopathy. Supple, full range of motion without nuchal rigidity, or vertebral point tenderness. No Meningismus. Chest/axilla: Normal chest wall appearance and motion. Nontender with no deformity. No lesions are appreciated. Cardiovascular: Regular rate and rhythm with a normal S1 and S2. No gallops, murmurs, or rubs. Normal PMI, no JVD. No pulse deficits. Respiratory: Lungs have equal breath sounds bilaterally, clear to auscultation and percussion. No rales, rhonchi or wheezes noted. No increased work of breathing, no retractions or nasal flaring. Abdomen/GI: Soft, non-tender, with normal bowel sounds. No distension or tympany. No guarding or rebound. No evidence of tenderness throughout. Back: No spinal tenderness. No costovertebral tenderness. Full range of motion. Skin: Warm, dry with normal turgor. Normal color with no rashes, no lesions, and no evidence of cellulitis. Neuro: Awake and alert, GCS 15, oriented to person, place, time, and situation. Cranial nerves II-XII grossly intact. Motor strength 5/5 in all extremities. Sensory grossly intact. Cerebellar exam normal. Normal gait. Psych: Awake, alert, with orientation to person, place and time. Behavior, mood, and affect are within normal limits. 15:11 Musculoskeletal/extremity: Extremities: grossly normal except: noted in the anterior aspect of left shoulder and posterior aspect of left shoulder: decreased ROM, pain, tenderness, ROM: Vital Signs: 08:20 BP 108 / 64; Pulse 86; Resp 16; Temp 97.8; Pulse Ox 94% ; Weight 54.43 kg; Height 5 ft. bp 2 in. (157.48 cm); 09:00 BP 92 / 67; Pulse 82; Resp 16; Pulse Ox 95% ; bp 10:00 BP 109 / 60; Pulse 86; Resp 17; Temp 98; Pulse Ox 96% ; bp 08:20 Body Mass Index 21.95 (54.43 kg, 157.48 cm) bp MDM: 09:49 Patient medically screened. kdr 15:11 Data reviewed: vital signs, nurses notes, radiologic studies. Counseling: I had a kdr detailed discussion with the patient and/or guardian regarding: the historical points, exam findings, and any diagnostic results supporting the discharge/admit diagnosis, radiology results, the need for outpatient follow up. 06/18 08:47 Order name: Shoulder Left (2 View) XRAY kdr 06/18 08:47 Order name: Sling; Complete Time: 09:42 kdr Administered Medications: 09:00 Drug: morphine 4 mg {Note: GIVEN IM PER MD.} Route: IVP; Site: Other; bp 09:42 Follow up: Response: No adverse reaction; Pain is decreased bp 09:00 Drug: Ondansetron (Zofran) 4 mg Route: PO; bp 09:42 Follow up: Response: No adverse reaction bp Disposition: 06/18/20 09:49 Discharged to Home. Impression: Left humeral neck fracture, closed. - Condition is Stable. - Discharge Instructions: Humerus Fracture Treated With Immobilization, [id number]. - Prescriptions for Tramadol 50 mg Oral Tablet - take 1 tablet by ORAL route every 8 hours As needed as needed; 16 tablet. - Medication Reconciliation Form, Thank You Letter, Prescription Opioid Use form. - Follow up: Private Physician; When: 2 - 3 days; Reason: If symptoms return, Further diagnostic work-up, Recheck today's complaints, Continuance of care, Re-evaluation by your physician. - Problem is new. - Symptoms have improved. Signatures: Dispatcher [employer] Mo Diggs MD MD kdr Cory Gomez, RN RN bp Corrections: (The following items were deleted from the chart) 10:20 09:49 06/18/2020 09:49 Discharged to Home. Impression: Left humeral neck fracture, bp closed. Condition is Stable. Forms are Medication Reconciliation Form, Thank You Letter, Antibiotic Education, Prescription Opioid Use. Follow up: Private Physician; When: 2 - 3 days; Reason: If symptoms return, Further diagnostic work-up, Recheck today's complaints, Continuance of care, Re-evaluation by your physician. Problem is new. Symptoms have improved. kdr
--- NOTE | 2020-06-18 09:49 | ER ---
Nurse's Notes [facility] Name: Lise Loera Age: 59 yrs Sex: Female : 1960 Arrival Date: 06/18/2020 Time: 08:12 Bed 18 Private MD: Diagnosis: Left humeral neck fracture, closed Presentation: 06/18 08:20 Chief complaint: Patient states: FALL FROM STANDING IN CHAIR THIS AM, NOW WITH LEFT bp SHOULDER PAIN/DEFORMITY. Coronavirus screen: At this time, the client does not indicate any symptoms associated with coronavirus-19. Ebola Screen: No symptoms or risks identified at this time. Initial Sepsis Screen: Does the patient meet any 2 criteria? No. Patient's initial sepsis screen is negative. Does the patient have a suspected source of infection? No. Patient's initial sepsis screen is negative. Risk Assessment: Do you want to hurt yourself or someone else? Patient reports no desire to harm self or others. Onset of symptoms was June 18, 2020 at 08:00. 08:20 Method Of Arrival: Wheelchair bp 08:20 Acuity: ESTRELLITA 3 bp Triage Assessment: 08:37 General: Appears distressed, uncomfortable, Behavior is cooperative, appropriate for bp age, anxious. Pain: Complains of pain in left arm. EENT: No deficits noted. Neuro: No deficits noted. Cardiovascular: No deficits noted. Respiratory: No deficits noted. GI: No signs and/or symptoms were reported involving the gastrointestinal system. : No signs and/or symptoms were reported regarding the genitourinary system. Derm: No deficits noted. Musculoskeletal: Circulation, motion, and sensation intact. Range of motion: limited in left shoulder Bony deformity noted of anterior aspect of left shoulder. Injury Description: Deformity sustained to anterior aspect of left shoulder. Historical: - Allergies: 08:37 Codeine; bp 08:37 PENICILLINS; bp - Home Meds: 08:37 None [Active]; bp - PMHx: 08:37 CHF; Cancer, Breast; cancer - skin; CAD; Anxiety; Atrial Fib; ADD/ADHD; Pacemaker; bp Hypertension; Myocardial infarction; - Immunization history:: Adult Immunizations unknown. - Social history:: Smoking status: Patient reports the use of cigarette tobacco products, unknown amount. Screenin:39 Abuse screen: Denies threats or abuse. Denies injuries from another. Nutritional bp screening: No deficits noted. Tuberculosis screening: No symptoms or risk factors identified. Fall Risk Fall in past 12 months (25 points). No secondary diagnosis (0 pts). No IV (0 pts). Ambulatory Aid- None/Bed Rest/Nurse Assist (0 pts). Gait- Normal/Bed Rest/Wheelchair (0 pts) Mental Status- Oriented to own ability (0 pts). Total Pugh Fall Scale indicates High Risk Score (45 or more points). Fall prevention measures have been instituted. Side Rails Up X 2 Placed Close to Nursing Station Frequent Obs/Assessments Occuring As available patient and family educated on Fall Prevention Program and Strategies. Assessment: 08:39 General: SEE TRIAGE NOTE. bp 10:19 Reassessment: PT D/C HOME VIA W/C WITH FAMILY, DX WITH LEFT HUMERAL HEAD FX. bp Vital Signs: 08:20 BP 108 / 64; Pulse 86; Resp 16; Temp 97.8; Pulse Ox 94% ; Weight 54.43 kg; Height 5 ft. bp 2 in. (157.48 cm); 09:00 BP 92 / 67; Pulse 82; Resp 16; Pulse Ox 95% ; bp 10:00 BP 109 / 60; Pulse 86; Resp 17; Temp 98; Pulse Ox 96% ; bp 08:20 Body Mass Index 21.95 (54.43 kg, 157.48 cm) bp ED Course: 08:12 Patient arrived in ED. as 08:21 Mo Vanessa MD is Attending Physician. kdr 08:35 Cory Gomez, DAMASO is Primary Nurse. bp 08:36 Triage completed. bp 08:39 Arm band placed on. bp 08:39 Patient has correct armband on for positive identification. Bed in low position. Call bp light in reach. Side rails up X2. 09:01 Shoulder Left (2 View) XRAY Sent. bp 09:32 Shoulder Left (2 View) XRAY In Process Unspecified. EDMS 09:43 Sling applied to left arm. bp 10:19 No provider procedures requiring assistance completed. Patient did not have IV access bp during this emergency room visit. Administered Medications: 09:00 Drug: morphine 4 mg {Note: GIVEN IM PER MD.} Route: IVP; Site: Other; bp 09:42 Follow up: Response: No adverse reaction; Pain is decreased bp 09:00 Drug: Ondansetron (Zofran) 4 mg Route: PO; bp 09:42 Follow up: Response: No adverse reaction bp Outcome: 09:49 Discharge ordered by . kdr 10:19 Discharged to home via wheelchair, with family. bp 10:19 Condition: stable 10:19 Discharge instructions given to patient, Instructed on discharge instructions, follow up and referral plans. medication usage, Demonstrated understanding of instructions, follow-up care, medications, splint care, Prescriptions given X 1. 10:20 Patient left the ED. bp Signatures: Dispatcher [employer] EDMS Mo Vanessa MD MD kdr Martinez, Amelia as Peltier, Brian, RN RN bp Corrections: (The following items were deleted from the chart) 09:45 08:20 BP 108 / 64; Pulse 86bpm; Resp 16bpm; Pulse Ox 97.8%; Temp 94F; 54.43 kg; Height bp 5 ft. 2 in.; BMI: 21.9; bp
--- NOTE | 2020-06-18 09:59 | RAD REPORT ---
EXAM DESCRIPTION: RAD - Shoulder Left 2 View - 06/18/2020 9:32 am CLINICAL HISTORY: PAIN, fall with left shoulder pain COMPARISON: No comparisons TECHNIQUE: Internal and external rotation views of the left shoulder were obtained. FINDINGS: Transverse fracture of the proximal left humerus is present at the surgical neck. There is an additional vertical oriented fracture line through the greater tuberosity. No significant distrac tion or angulation deformities. No pathologic component. Mild underlying degenerative changes shoulder joint. AC joint is unremarkable. Delete select IMPRESSION: Left proximal humerus surgical neck and greater tuberosity fractures as detailed.
[2020-06-18 10:32] VITALS: BP 109/60; TEMP 98; O2SAT 96
== END 2020-06-18 10:20 | disposition home or self-care (01) ==
LOC: ER 08:09
DX: S42.292A Other displaced fracture of upper end of left humerus, initial encounter for closed fracture (principal); W19.XXXA Unspecified fall, initial encounter; Y93.89 Activity, other specified; Y92.009 Unspecified place in unspecified non-institutional (private) residence as the place of occurrence of the external cause; Z85.3 Personal history of malignant neoplasm of breast; Z88.0 Allergy status to penicillin; Z88.5 Allergy status to narcotic agent; Z95.0 Presence of cardiac pacemaker; Z85.828 Personal history of other malignant neoplasm of skin; I10 Essential (primary) hypertension; F17.210 Nicotine dependence, cigarettes, uncomplicated
CPT/HCPCS: 96374; 99284

== ENCOUNTER 2020-11-27 00:26 | Emergency (ER) | payer OTHER ==
--- OUTSIDE RECORDS SUMMARY | 2020-11-27 00:29 | XMS REPORT | Continuity of Care Document ---
:1960 Author Organization [facility] t Address [address] [place] [address] Care Team Providers Name Role Phone Asked, Pcp Primary Care Physician Unavailable Daryl Lockett Attending Clinician Hudson NAVARRO Attending Clinician Dior RN, D Attending Clinician Unavailable Siomara Alonzo MA Attending Clinician Unavailable Mable NAVARRO, H. Attending Clinician MABLE Admitting Clinician Unavailable Payers Payer Name Policy Type Policy Effective Date Expiration Date Sour ce Number MEDICAREMEDICARE PART [id number] 2010 noe A AND 00:00:00 Rastafari [id number] 2009- [place], [place] Condition Condition Condition Status Onset Resolution Last Treating Co mments Source Name Details Category Date Date Treatment Clinician Date Acute Acute Disease Active 2019-08 [place] non-ST non-ST 1-10 [facility] segment segment 00:00: st elevation elevation 00 myocardial myocardial infarction infarction Hypokalemi Hypokalemi Disease Active [place] a a 9-15 Methodi 00:00: st 00 VT VT Disease Active [place] (ventricul (ventricul 15 [place] ar ar 00:00: st tachycardi tachycardi 00 a) a) Delirium Delirium Disease Active [place] due to due to 04-11 [facility] multiple multiple 00:00: st etiologies etiologies 00 A-fib A-fib Disease Active [place] 04-10 Methodi 00:00: st 00 Cardiogeni Cardiogeni Disease Active [place] c shock c shock 04-10 Methodi 00:00: st 00 Atrial Atrial Disease Active [place] fibrillati fibrillati 04-09 [place] on 00:00: st 00 Anxiety Anxiety Disease Active [place] 04-07 [facility] 00:00: st 00 Acute Acute Disease Active [place] right right 04-07 [facility] otitis otitis 00:00: st media media 00 Shortness Shortness Disease Active Jamie ston of breath of breath 8-18 Meth chris 00:00: st 00 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 2-22 Method i and and 00:00: st diastolic diastolic 00 congestive congestive heart heart failure failure Allergies, Adverse Reactions, Alerts Allergy Allergy Status Severity Reaction(s) Onset Inactive Treating Comm ents Source Name Type Date Date Clinician Codeine Propensi Active GI Vomiting [place] ty to Intolerance 2-22 Metho di adverse 00:00: st reaction 00 s to drug Penicill Propensi Active Rash 2006-08 [place] ins ty to 0-08 Method[facility] adverse 00:00: st reaction 00 s to drug Family History Family Member Diagnosis Comments Start Date Stop Date Source Natural father Heart disease Brodie Davis Natural mother Liver disease [place] Rastafari Social History Social Habit Start Date Stop Date Quantity Comments Source History of tobacco Current smoker Franklin Davis use Cigarettes smoked 2020-07-14 2020-07-14 Brodie Davis current (pack per 00:00:00 00:00:00 day) - Reported Tobacco use and 2020-07-14 2020-07-14 Never used [facility] ethodist exposure 00:00:00 00:00:00 Alcohol intake 2020-07-14 2020-07-14 Current [facility] thodist 00:00:00 00:00:00 non-drinker of alcohol (finding) Sex Ass[birth year] [facility] ethodist 00:00:00 00:00:00 Smoking Status Start Date Stop Date Source Former smoker 2020-07-14 00:00:00 2020-07-14 00:00:00 Brodie Rastafari Medications Ordered Filled Start Stop Current Ordering Indication Dosage Frequency Signature Comments Components Source Medication Medication Date Date Medication? Clinician (SIG) Name Name ALPRAZolam 2019-08 Yes 2mg [id number] Take 2 mg [place] (XANAX) 2 1-15 [id number] by mouth 3 Methodi MG tablet 14:35: 3D (three) st 39 times a day. sacubitriL- 2019-08 Yes 1{tbl} Q.5D Take 1 [place] valsartan 1-15 tablet by Metho di (ENTRESTO) 14:35: mouth 2 st 24-26 mg 39 (two) tablet per times a tablet day. amIODarone 2019-08- No 200mg Q.5D Take 1 [place] ston (Pacerone) -15 12-15 tablet Method i 200 MG 00:00: 23:59 ([address] tablet 00 :00 total) by mouth 2 (two) times a day for 30 days. aspirin 2019-08- No 325mg QD Take 1 [place] (ECOTRIN) -03 08-15 tablet Methodi 325 MG 00:00: 23:59 ([address] enteric 00 :00 total) by coated mouth tablet daily for 30 days. atorvastati 2019-08- No 20mg QD Take 1 [place] st[place] n (LIPITOR) -15 -15 tablet (20 M ethodi 20 mg 00:00: 23:59 mg total) st tablet 00 :00 by mouth nightly for 30 days. potassium 2019-08- No 20meq QD Take 2 [place] chloride -15 -15 tablets Methodi (K-DUR) 10 00:00: 23:59 ([address] MEQ CR 00 :00 total) by tablet mouth daily for 30 days. metoprolol 2019-08- No 12.5mg QD Take 0.5 [place] succinate -15 12-15 tablets Method i XL (Toprol 00:00: 23:59 (12.[address] XL) 25 mg 00 :00 total) by 24 hr mouth tablet daily for 30 days. HOLD DOSE FOR SBP LESS THAN 100 AND/ OR HR LESS THAN 50 furosemide 2019-08- No 40mg QD Take 2 [place] (LASIX) 20 -15 12-15 tablets Metho di mg tablet 00:00: 23:59 ([address] 00 :00 total) by mouth daily for 30 days. aspirin 81 2019-08- No 324mg QD Chew 4 [place] mg chewable 09-02 tablets Meth chris tablet 00:00: 00:00 ([address] 00 :00 total) daily for 30 days. atorvastati 2019-08 No 20mg QD Take 1 [place] st[place] n (LIPITOR) 09-01 tablet (20 M ethodi 20 mg 00:00: 00:00 mg total) st tablet 00 :00 by mouth nightly for 30 days. furosemide 2019-08 No 40mg QD Take 2 [place] (LASIX) 20 09-01 tablets Metho di mg tablet 00:00: 00:00 ([address] 00 :00 total) by mouth daily. potassium 2019-08 No 20meq QD Take 2 [place] chloride 09-01 tablets Method[facility] (K-DUR) 10 00:00: 00:00 ([address] MEQ CR 00 :00 total) by tablet mouth daily. amIODarone 2019-08 No 200mg Q.5D Take 1 [place] (Pacerone) 09-01 tablet Method i 200 MG 00:00: 00:00 ([address] tablet 00 :00 total) by mouth 2 (two) times a day. aspirin 2019-08 No 325mg QD Take 1 [place] (ECOTRIN) 09-01 tablet Methodi 325 MG 00:00: 00:00 ([address] enteric 00 :00 total) by coated mouth tablet daily for 30 days. metoprolol 2019-08 No 12.5mg QD Take 0.5 [place] succinate 09-01 tablets Method i XL (Toprol 00:00: 00:00 (12.[address] XL) 25 mg 00 :00 total) by 24 hr mouth tablet daily for 30 days. HOLD DOSE FOR SBP LESS THAN 100 AND/ OR HR LESS THAN 50 amIODarone 2019-08- No Take 1 [place] (PACERONE) 09-01 tablet Method i 400 MG 00:00: 00:00 ([address] tablet 00 :00 total) by mouth 2 (two) times a day for 14 days, THEN 1 tablet (400 mg total) daily for 30 days, THEN 0.5 tablets (200 mg total) daily for 30 days. metoprolol 2019-08 No 12.5mg QD Take 0.5 [place] succinate 09-01-13 tablets Method i XL (Toprol 00:00: 00:00 (12.[address] XL) 25 mg 00 :00 total) by 24 hr mouth tablet daily for 30 days. metoprolol 2019-08 No 12.5mg QD Take 0.5 [place] succinate 09-01- tablets Method i XL (Toprol 00:00: 00:00 (12.[address] XL) 25 mg 00 :00 total) by 24 hr mouth tablet daily for 30 days. HOLD DOSE FOR SBP LESS THAN 100 AND HR LESS THAN 50 spironolact 2019-08- No .5mg QD Take 0.5 [place] one 08-3011 mg by Methodi (ALDACTONE) 08:58: 00:[address] 25 MG 02 :00 daily. tablet furosemide No 40mg Q.5D Take 40 mg [place] (LASIX) 20 05-14 by mouth 2 Me th[place] mg tablet 00:00: 00:00 (two) st 00 :00 times a day. Vital Signs Vital Name Observation Time Observation Value Comments Source Systolic blood 2020-07-04 11:27:27 99 mm[Hg] [place] Rastafari pressure Diastolic blood 2020-07-04 11:27:27 59 mm[Hg] Steph on Rastafari pressure Heart rate 2020-07-04 11:27:27 87 /min Brdoie Davis Body temperature 2020-07-04 11:27:27 36.06 Freya [place] Rastafari Respiratory rate 2020-07-04 11:27:27 20 /min [place] Rastafari Oxygen saturation in 2020-07-04 11:27:27 96 /min Brodie Davis Arterial blood by Pulse oximetry Body weight 2020-07-04 06:18:00 84.9 kg Brodie Davis BMI 2020-07-04 06:18:00 34.23 kg/m2 Brodie Davis Body height 2020-06-29 21:40:40 157.5 cm Brodie Davis Procedures Procedure Date / Time Performed Performing Clinician Sourc e THYROID STIMULATING 2020-07-02 14:25:00 Iván Cintron Rastafari HORMONE HC COMPLETE BLD COUNT 2020-07-02 02:25:00 Cintron, Iván merchant Rastafari W/AUTO DIFF MAGNESIUM LEVEL 2020-07-02 02:25:00 Cintron, Croatian ChetMarco [place] Meth odist PHOSPHORUS LEVEL 2020-07-02 02:25:00 Cintron, Croatian ChetMarco Calloway Met hodkerri ESTIMATED GFR 2020-07-02 02:25:00 Cintron, Croatian ChetMarco C[place] Meth odist BASIC METABOLIC PANEL 2020-07-02 02:25:00 Cintron, Iván merchant Rastafari BASIC METABOLIC PANEL 2020-07-01 03:55:00 Cintron, Iván merchant Rastafari HC COMPLETE BLD COUNT 2020-07-01 03:55:00 Cintron, Iván Shookist W/AUTO DIFF MAGNESIUM LEVEL 2020-07-01 03:55:00 Cintron, Croatian ChetMarco [place] Meth odist PHOSPHORUS LEVEL 2020-07-01 03:55:00 Cintron, Iván Calloway Met hodist ESTIMATED GFR 2020-07-01 03:55:00 Cintron, Iván [place] Meth odist TROPONIN 2020-06-30 [facility] Met bernard Frazier COVID-19 QUALITATIVE PCR 2020-06-30 12:15:00 Ishaan Siddiqui TTE COMPLETE, WO 2020-06-30 10:02:17 Ishaan Siddiqui Met bernard ANTONIO, W THOMAS Christy ([id number]) NM LUNG PERFUSION IMAGING 2020-06-30 08:16:17 Cintron, Iván Davis B NATRIURETIC PEPTIDE 2020-06-30 06:54:00 [facility] 2020-06-30 06:54:00 [facility]ernard Frazier PROTHROMBIN TIME WITH INR 2020-06-30 06:54:00 Fegaing FeChet vallejo ECG 12-LEAD 2020-06-30 06:40:01 [facility] bernard Frazier BASIC METABOLIC PANEL 2020-06-30 04:45:00 Cintron, Iván Duong n Rastafari HC COMPLETE BLD COUNT 2020-06-30 04:45:00 Cintron, Iván Duong n Rastafari W/AUTO DIFF MAGNESIUM LEVEL 2020-06-30 04:45:00 Cintron, Iván [place] Meth odist PHOSPHORUS LEVEL 2020-06-30 04:45:00 Cintron, Iván [place] Met hodist TROPONIN 2020-06-30 04:45:00 Cintron, Iván [place] Meth odist ESTIMATED GFR 2020-06-30 04:45:00 Cintron, Iván [place] Meth odist TROPONIN 2020-06-30 01:25:00 Cintron, Iván C[place]ay Meth odist ECG 12-LEAD 2020-06-30 01:05:27 Cintron, Iván Norris odist CREATINE KINASE, TOTAL 2020-06-29 21:45:00 Cintron, Iván Choi on Rastafari (CPK) HC COMPLETE BLD COUNT 2020-06-29 21:45:00 Cintron, Iván merchant Rastafari W/AUTO DIFF COMPREHENSIVE METABOLIC 2020-06-29 21:45:00 Cintron, Iván graf Rastafari PANEL HCG QUALITATIVE, SERUM 2020-06-29 21:45:00 Cintron, Iván Choi on Rastafari SCREEN MAGNESIUM LEVEL 2020-06-29 21:45:00 Cintron, Iván [place]ay Meth odist ESTIMATED GFR 2020-06-29 21:45:00 Cintron, Iván [place] Meth odist TROPONIN 2020-06-29 21:45:00 Cintron, Iván [place] Meth odist LIPID PANEL 2020-06-29 21:45:00 Cintron, Iván Calloway Meth odist ECG 12-LEAD 2020-06-29 21:06:23 Cintron, Iván Calloway Meth odist ECG 12-LEAD 2020-06-29 21:05:30 Cintron, Iván Calloway Meth odist XR CHEST 1 VW PORTABLE 2020-06-29 20:38:01 Cintron, Iván Choi on Rastafari Plan of Care Planned Activity Planned Date Details Comments Source Future Scheduled 2021-03-20 INFLUENZA VACCINE [place] Rastafari Test 00:00:00 [code = INFLUENZA VACCINE] Future Scheduled 2009 BREAST CANCER [facility] thodist Test 00:00:00 SCREENING [code = BREAST CANCER SCREENING] Future Scheduled 2009 COLONOSCOPY SCREENING [place] [facility]ast[facility]ari Test 00:00:00 [code = COLONOSCOPY SCREENING] Future Scheduled 2009 SHINGLES VACCINES [place] [facility]ast[facility] Test 00:00:00 (#1) [code = SHINGLES VACCINES (#1)] Future Scheduled 1980 Screening for [facility] Me thodist Test 00:00:00 malignant neoplasm of cervix (procedure) [code = 085195623] Future Scheduled 1977 Hepatitis C screening [place] Rastafari Test 00:00:00 (procedure) [code = 128614066] Future Scheduled 1975 COVID-19 VACCINE (1) Jamierm dupreen Rastafari Test 00:00:00 [code = COVID-19 VACCINE (1)] Encounters Start End Encounter Admission Attending Care Care Encounter Source Date/Time Date/Time Type Type Clinicians Facility Department ID 2020-11-26 2020-11-27 Emergency Lore [facility] [id number] 21:15:00 00:04:00 Ernestina Brito [place] [id number] [employer] [id number] [place] [id number] 2020-09-22 2020-09-22 [id number] 00:00:00 00:00:00 [facility] [id number] [place] [id number] [facility] [id number] nal 044 [address] 2020-09-01 2020-09-01 Office [facility] [id number] 12:28:02 12:43:02 Visit [facility] [id number] [place] [id number] Profess [id number] nal 044 Office [address] 2020-06-29 2020-07-04 Inpatient MABLE [facility] [id number] [place] 00:00:00 00:00:[address] Results Test Description Test Time Test Comments Results Result Comments Source ECG 12 lead 2020-06-30 20:34:24 Test Item Value Reference Range Interpretation Comme nts Ventricular rate (test code = 253) 94 Atrial rate (test code = 255) 94 FL interval (test code = 266) 126 QRSD interval (test code = 260) 174 QT interval (test code = 264) 472 QTC interval (test code = 265) 590 P axis 1 (test code = 267) 25 QRS axis 1 (test code = 268) 212 T wave axis (test code = 270) 36 EKG impression (test code = 273) Atrial-sensed ventricular-paced yt with occasional premature ventricular complexes-Biventricular pacemaker detected-Abnormal ECG-In automated comparison with ECG of 30-JUN-2020 01:05,-premature ventricular complexes are now present-Vent. rate has increased BY 18 BPM- Brodie MethodkerirTransthoracic Echocardiogram Complete, (w Contrast, Strain and 3D if needed)2020-06-30 12:11:09 Test Item Value Reference Range Interpretation Comments Ao Root Diameter (test 2.78 cm code = 8363509317) AoV Area, Vmax (test 2.08 cm2 code = 5148766472) AoV Area, VTI (test 1.89 cm2 code = 7086780308) AoV Mean PG (test code 1.98 mmHg = 7178470402) AoV Peak PG (test code 3.65 mmHg = 9275402327) AoV Vmax (test code = 0.99 m/s 0643894398) AoV VTI (test code = 0.14 m 8755466474) IVS,d (test code = 0.87 cm 2028493492) IVS/LVPW,2D (test code 0.80 = 3591125791) Left Atrium Dimension 3.16 cm Anterior (test code = 1035918014) LA Area d A4C (test 22.18 cm2 code = 9567832615) LV,d (test code = 6.34 cm 2738097810) LV EF,2D (test code = -4.59 % 0969622004) LV,s (test code = 6.44 cm 2188787817) LVOT area (test code = 4.05 cm2 4941635536) LVOT Diam,S (test code 2.27 cm = 8836007443) LVOT Vmax (test code = 0.49 m/s 9717645679) LVOT VTI (test code = 0.06 m 7724632759) LVPWD,d (test code = 1.09 cm 0140832396) PV Mean Grad (test 1.31 mmHg code = 2909462973) PV Pk Grad (test code 2.19 mmHg = 3491821569) PV VMAX (test code = 0.72 m/s 4673963651) PV VTI (test code = 0.12 m 1210192625) RVOT Vmax (test code = 0.28 m/s 7215041132) TR Vpeak (test code = 3.14 mm/s 1439085970) TR pk grad (test code 35.04 mmHg = 6665198630) PV Vmn (test code = 0.55 4541613771) AV LVOT peak gradient 0.97 mmHg (test code = 1365295507) Ascending aorta (test 2.77 cm code = 2361592028) Ao Root Diameter (test 2.78 cm code = 0686772300) LV SYS VOL (test code 211.52 ml = 8885097392) LV HERNANDEZ VOL (test code 204.44 ml = 8821223357) LV SV Teich 2D (test -7.07 ml code = 5775529503) LV Vol s Teich PSAX 211.52 ml (test code = 0378498755) LVOT CO (test code = 2.40 l/min 2191369449) LVOT HR for LVOT CO 92.60 bpm (test code = 6282692981) RVOT pk grad (test 0.32 mmHg code = 2824057356) AoV Vmn (test code = 0.65 4201402782) IVS s 2D (test code = 0.56 2031984467) LV FS Teich 2D (test -1.51 code = 8278429574) LV FS Cube 2D (test -1.51 code = 7024867409) LVOT Vmn (test code = 0.33 4731594339) Aov area Vmn (test 2.02 cm2 code = 9111050084) LA Vol d MOD A4C (test 62.11 ml code = 6662872695) LVOT mean grad (test 0.50 mmHg code = 6490138491) MAX Pred HR (test code 159.25 = 3421580699) RVOT mean grad (test 0.16 mmHg code = 2812238199) RVOT Vmn (test code = 0.19 m/s 5270393026) RVOT VTI (test code = 0.04 m 2569435566) 85 of MPHR (test code 135.36 = 2571970627) Calc MPHR (test code = 159.25 bpm 9710284679) IVS pct thck PLAX -35.97 % (test code = 9091656747) LV SV Cube 2D (test -11.73 ml code = 0199534734) LV vol d cube 2D (test 255.40 ml code = 3224210525) LV vol s cube 2D (test 267.13 ml code = 0392215686) LVPW pct thck PLAX 16.02 % (test code = 2202109966) LVPW s PLAX (test code 1.27 cm = 5862334812) Pred Exer Dur R1 (test 7.82 code = 3997432544) Pred METS R1 (test 6.80 code = 3063849760) Velocity Ratio (V1/V2) 0.49 m/s (test code = 4689) EF (test code = -3.46 % 0921849723) RA pressure (test code 10.00 mmHg = 0655635582) RVSP (test code = 45.00 mmHg 5163281970) FLY (test code = FLY) Left Ventricular ejection fraction is <20%. Left ventricular systolic function is severely impaired. Global right ventricle systolic function is moderately reduced. Left atrium size is mildly dilated. There is moderate mitral valve regurgitation. Moderate tricuspid valve regurgitation. The left ventricle chamber size is severely enlarged. Brodie Hassan Lung Perfusion [id number] 08:33:42Hm Interface, Radiology Results [facility] - 06/30/2020 8:36 AM CST PROCEDURE: PA LUNG PERFUSION IMAGINGINDICATION: elevated troponin rule out PECOMPARISON: Chest radiograph 06/29/2020TECHNIQUE: Perfusion imaging in multiple projections was performed after intravenous administration of 5 mCi of Tc-99m labeled MAA. No ventilation imaging was performed.FINDINGS: Irregular nonsegmental defect is seen in the mid left lung. Tracer distribution is otherwise moderately heterogeneous in the remaining lung domingo. Cardiomediastinal silhouette is enlarged. Areas of soft tissue attenuation are noted.IMPRESSION:Low probability of acute pulmonary embol ism.[facility]-[id number] MethodistXR Chest 1 Vw [id number] 20:53:59Hm Interface, Radiology Results - 06/29/2020 8:57 PM CST EXAMINATION: XR CHEST 1 VW PORTABLECLINICAL HISTORY: shoulder chest painafter a recent fallCOMPARISON: Most Recent Prior at HIMPRESSION:Left subclavian pacing device. The heart is enlarged. The pulmonary vasculature is normal. There are no acute infiltrates or effusions. Mild interstitial scarring is noted. Degenerative changes of the osseous structures.[facility]-[id number] Rastafari
[2020-11-27] MEDS ORDERED: MORPHINE 4 MG/ML SYR ONE (02:55)
[2020-11-27 02:58] LABS: Barbiturates NEGATIVE (NEGATIVE); Benzodiazepines POSITIVE (NEGATIVE); Cocaine NEGATIVE (NEGATIVE); METHAMPHETAM NEGATIVE (NEGATIVE); Methadone NEGATIVE (NEGATIVE); Opiates NEGATIVE (NEGATIVE); Phencyclidine NEGATIVE (NEGATIVE); THC Cannibis NEGATIVE (NEGATIVE)
[2020-11-27] MEDS ORDERED: ONDANSETRON 4 MG (ODT) TAB ONE (03:40)
--- NOTE | 2020-11-27 04:10 | ER ---
Nurse's Notes [facility] Name: Lise Loera Age: 60 yrs Sex: Female : 1960 Arrival Date: 11/27/2020 Time: 00:31 Bed 17 Private MD: Diagnosis: Rib Contusion Presentation: 11/27 01:18 Chief complaint: Patient states: she was diagnosed with rib fractures a week ago at [facility] and the pain is getting worse. Coronavirus screen: At this time, the client does not indicate any symptoms associated with coronavirus-19. Ebola Screen: No symptoms or risks identified at this time. Initial Sepsis Screen: Does the patient meet any 2 criteria? No. Patient's initial sepsis screen is negative. Does the patient have a suspected source of infection? No. Patient's initial sepsis screen is negative. Risk Assessment: Do you want to hurt yourself or someone else? Patient reports no desire to harm self or others. Onset of symptoms was November 2020. 01:18 Method Of Arrival: Ambulatory 01:18 Acuity: ESTRELLITA 4 bb Historical: - Allergies: 01:21 Codeine; bb 01:21 PENICILLINS; bb 01:21 tylenol; bb 02:47 Eliquis; sf - Home Meds: 02:18 Xanax 2 mg Oral tab 1 tab 3 times per day [Active]; potassium chloride 10 mEq Oral cpER sf 1 cap once daily [Active]; amiodarone 100 mg Oral tab 1 tab 2 times per day [Active]; Lasix 20 mg Oral tab 60 mg in am, 40 mg in pm [Active]; Aspirin EC Oral [Active]; 02:47 Entresto 49-51 mg oral tab [Active]; sf - PMHx: 01:21 ADD/ADHD; Anxiety; Atrial Fib; CAD; cancer - skin; Cancer, Breast; CHF; Hypertension; bb Myocardial infarction; Pacemaker; - PSHx: 02:18 pacemaker; sf - Immunization history:: Adult Immunizations up to date. - Social history:: Smoking status: unknown. Screenin:51 Abuse screen: Denies threats or abuse. Denies injuries from another. Nutritional sf screening: No deficits noted. Tuberculosis screening: No symptoms or risk factors identified. Never had TB. Possible symptoms: None Risk factors: None. Fall Risk Fall in past 12 months (25 points). No secondary diagnosis (0 pts). No IV (0 pts). Ambulatory Aid- None/Bed Rest/Nurse Assist (0 pts). Gait- Normal/Bed Rest/Wheelchair (0 pts) Mental Status- Oriented to own ability (0 pts). Total Pugh Fall Scale indicates Low Risk Score (25-44 pts). Fall prevention measures have been instituted. Side Rails Up X 2 Placed close to Nursing Station. Assessment: 01:49 General: Appears in no apparent distress. comfortable, Behavior is calm, cooperative. sf Pain: Complains of pain in left lower ribs. Neuro: Level of Consciousness is awake, alert, Oriented to person, place, time, situation. Cardiovascular: No deficits noted. Patient's skin is warm and dry. Respiratory: No deficits noted. Airway is patent Respiratory effort is even, unlabored, Respiratory pattern is regular, symmetrical, left chest tenderness. GI: No signs and/or symptoms were reported involving the gastrointestinal system. : No signs and/or symptoms were reported regarding the genitourinary system. Derm: No signs and/or symptoms reported regarding the dermatologic system. Derm: Reports abrasion to left knee from fall 6 days ago. Musculoskeletal: No signs and/or symptoms reported regarding the musculoskeletal system. 02:39 Reassessment: Patient appears in no apparent distress at this time. No changes from sf previously documented assessment. Patient and/or family updated on plan of care and expected duration. Pain level reassessed. Patient is alert, oriented x 3, equal unlabored respirations, skin warm/dry/pink. 03:28 Reassessment: Patient appears in no apparent distress at this time. No changes from sf previously documented assessment. Patient and/or family updated on plan of care and expected duration. Pain level reassessed. Patient is alert, oriented x 3, equal unlabored respirations, skin warm/dry/pink. Patient states feeling better. Patient states symptoms have improved. 04:33 Reassessment: Patient is alert, oriented x 3, equal unlabored respirations, skin bb warm/dry/pink. pt verbalized understanding of and agrees to plan of care discharge instructions given Patient states feeling better. 04:43 Reassessment: pt given sandwich and soda and advised to wait for an hour before bb discharge as her ride is no longer available and she will be driving herself home, pt agreed. 05:42 Reassessment: Patient is alert, oriented x 3, equal unlabored respirations, skin bb warm/dry/pink. pt ready for discharge states she is feeling better, ambulated with steady gait to exit. Vital Signs: 01:18 BP 95 / 63; Pulse 78; Resp 20 S; Temp 97.7(O); Pulse Ox 96% on R/A; Weight 49.9 kg (R); bb Height 5 ft. 2 in. (157.48 cm) (R); Pain 10/10; 02:30 BP 109 / 86; Pulse 72; Resp 16; Pulse Ox 97% ; sf 03:31 BP 105 / 68; Pulse 78; Resp 16; Pulse Ox 96% ; sf 04:34 BP 110 / 74; Pulse 96; Resp 16 S; Temp 97.7(O); Pulse Ox 96% on R/A; bb 05:42 BP 95 / 66; Pulse 71; Resp 16 S; Temp 97.6(O); Pulse Ox 96% on R/A; bb 01:18 Body Mass Index 20.12 (49.90 kg, 157.48 cm) bb ED Course: 00:31 Patient arrived in ED. cl3 01:20 Triage completed. bb 01:21 Arm band placed on Patient placed in an exam room, on a stretcher, on pulse oximetry. bb 01:24 Jaret Donahue MD is Attending Physician. mh7 01:27 Husam Parks, DAMASO is Primary Nurse. sf 01:51 Patient has correct armband on for positive identification. Bed in low position. Call sf light in reach. Side rails up X 1. Pulse ox on. NIBP on. Door closed. Noise minimized. Visitors limited. Lights dimmed. 02:10 Urine collected: clean catch specimen, clear. sf 02:37 UDS Sent. sf 02:46 Chest Pa And Lat (2 Views) XRAY Sent. sf 02:46 Ribs Left XRAY Sent. sf 03:15 Ribs Left XRAY In Process Unspecified. EDMS 03:15 Chest Pa And Lat (2 Views) XRAY In Process Unspecified. EDMS 04:35 No provider procedures requiring assistance completed. Patient did not have IV access bb during this emergency room visit. Administered Medications: 02:39 Drug: morphine 4 mg Route: IM; Site: Ventrogluteal RIGHT; sf 03:28 Follow up: Response: No adverse reaction sf 03:31 Drug: Ondansetron (Zofran) 4 mg Route: PO; sf 05:03 Follow up: Response: No adverse reaction sf Outcome: 04:09 Discharge ordered by . angella 05:43 Discharged to home ambulatory. bb 05:43 Condition: stable 05:43 Discharge instructions given to patient, Instructed on discharge instructions, follow up and referral plans. no driving heavy equipment, medication usage, Demonstrated understanding of instructions, follow-up care, medications, Prescriptions given X 1. 05:43 Patient left the ED. bb Signatures: Dispatcher [employer] EDKaty Patricia RN RN bb Stacie Luis cl3 Jaret Donahue MD MD Husam Santacruz RN RN sf Corrections: (The following items were deleted from the chart) 02:18 01:51 Home Meds: Unable to obtain; sf sf
--- NOTE | 2020-11-27 04:10 | EDPHYS ---
Physician Documentation [facility] Name: Lise Loera Age: 60 yrs Sex: Female : 1960 Arrival Date: 11/27/2020 Time: 00:31 Bed 17 Private MD: ED Physician Jaret Donahue HPI: 11/27 02:43 This 60 yrs old Female presents to ER via Ambulatory with complaints of Rib mh7 Pain. 02:43 Details of fall: The patient fell from an upright position, while standing. Onset: The mh7 symptoms/episode began/occurred 6 day(s) ago. Associated injuries: The patient sustained injury to the chest, specifically the left lateral anterior chest, tenderness. Severity of symptoms: At their worst the symptoms were moderate, 4 day(s) ago, in the emergency department the symptoms are unchanged. The patient has been recently seen by a physician: seen at another ED for the same complaint. Historical: - Allergies: 01:21 Codeine; bb 01:21 PENICILLINS; bb 01:21 tylenol; bb 02:47 Eliquis; sf - Home Meds: 02:18 Xanax 2 mg Oral tab 1 tab 3 times per day [Active]; potassium chloride 10 mEq Oral cpER sf 1 cap once daily [Active]; amiodarone 100 mg Oral tab 1 tab 2 times per day [Active]; Lasix 20 mg Oral tab 60 mg in am, 40 mg in pm [Active]; Aspirin EC Oral [Active]; 02:47 Entresto 49-51 mg oral tab [Active]; sf - PMHx: 01:21 ADD/ADHD; Anxiety; Atrial Fib; CAD; cancer - skin; Cancer, Breast; CHF; Hypertension; bb Myocardial infarction; Pacemaker; - PSHx: 02:18 pacemaker; sf - Immunization history:: Adult Immunizations up to date. - Social history:: Smoking status: unknown. ROS: 02:43 Constitutional: Negative for fever, chills, and weight loss, Eyes: Negative for injury, mh7 pain, redness, and discharge, ENT: Negative for injury, pain, and discharge, Neck: Negative for injury, pain, and swelling. 02:43 Respiratory: Negative for shortness of breath, cough, wheezing, and pleuritic chest pain, Abdomen/GI: Negative for abdominal pain, nausea, vomiting, diarrhea, and constipation, Back: Negative for injury and pain, : Negative for injury, bleeding, discharge, and swelling, MS/Extremity: Negative for injury and deformity, Skin: Negative for injury, rash, and discoloration, Neuro: Negative for headache, weakness, numbness, tingling, and seizure, Psych: Negative for depression, anxiety, suicide ideation, homicidal ideation, and hallucinations, Allergy/Immunology: Negative for hives, rash, and allergies, Endocrine: Negative for neck swelling, polydipsia, polyuria, polyphagia, and marked weight changes, Hematologic/Lymphatic: Negative for swollen nodes, abnormal bleeding, and unusual bruising. 02:43 Cardiovascular: Negative for edema, orthopnea, palpitations, paroxysmal nocturnal dyspnea. Exam: 02:43 Constitutional: This is a well developed, well nourished patient who is awake, alert, mh7 and in no acute distress. Head/Face: Normocephalic, atraumatic. Eyes: Pupils equal round and reactive to light, extra-ocular motions intact. Lids and lashes normal. Conjunctiva and sclera are non-icteric and not injected. Cornea within normal limits. Periorbital areas with no swelling, redness, or edema. Neck: Trachea midline, no thyromegaly or masses palpated, and no cervical lymphadenopathy. Supple, full range of motion without nuchal rigidity, or vertebral point tenderness. No Meningismus. 02:43 Cardiovascular: Regular rate and rhythm with a normal S1 and S2. No gallops, murmurs, or rubs. Normal PMI, no JVD. No pulse deficits. Respiratory: Lungs have equal breath sounds bilaterally, clear to auscultation and percussion. No rales, rhonchi or wheezes noted. No increased work of breathing, no retractions or nasal flaring. Abdomen/GI: Soft, non-tender, with normal bowel sounds. No distension or tympany. No guarding or rebound. No evidence of tenderness throughout. Back: No spinal tenderness. No costovertebral tenderness. Full range of motion. Skin: Warm, dry with normal turgor. Normal color with no rashes, no lesions, and no evidence of cellulitis. MS/ Extremity: Pulses equal, no cyanosis. Neurovascular intact. Full, normal range of motion. Neuro: Awake and alert, GCS 15, oriented to person, place, time, and situation. Cranial nerves II-XII grossly intact. Motor strength 5/5 in all extremities. Sensory grossly intact. Cerebellar exam normal. Normal gait. Psych: Awake, alert, with orientation to person, place and time. Behavior, mood, and affect are within normal limits. 02:43 Chest/axilla: Inspection: normal, Palpation: tenderness, that is moderate, of the left lateral anterior chest, that totally reproduces the patient's complaints, Axilla: are normal, Lymph nodes: lymphadenopathy is not appreciated. Vital Signs: 01:18 BP 95 / 63; Pulse 78; Resp 20 S; Temp 97.7(O); Pulse Ox 96% on R/A; Weight 49.9 kg (R); bb Height 5 ft. 2 in. (157.48 cm) (R); Pain 10/; 02:30 BP 109 / 86; Pulse 72; Resp 16; Pulse Ox 97% ; sf 03:31 BP 105 / 68; Pulse 78; Resp 16; Pulse Ox 96% ; sf 04:34 BP 110 / 74; Pulse 96; Resp 16 S; Temp 97.7(O); Pulse Ox 96% on R/A; bb 05:42 BP 95 / 66; Pulse 71; Resp 16 S; Temp 97.6(O); Pulse Ox 96% on R/A; 01:18 Body Mass Index 20.12 (49.90 kg, 157.48 cm) MDM: 04:07 Differential diagnosis: abrasion, contusion, fracture. Data reviewed: vital signs, [facility] nurses notes, radiologic studies, plain films. Data interpreted: Pulse oximetry: on room air is 96 %. Interpretation: normal. Counseling: I had a detailed discussion with the patient and/or guardian regarding: the historical points, exam findings, and any diagnostic results supporting the discharge/admit diagnosis, lab results, radiology results, the need for outpatient follow up, to return to the emergency department if symptoms worsen or persist or if there are any questions or concerns that arise at home. Response to treatment: the patient's symptoms have markedly improved after treatment. 04:09 Patient medically screened. [facility] 11/27 02:11 Order name: UDS; Complete Time: 03:42 [facility] 11/27 01:57 Order name: Ribs Left XRAY; Complete Time: 03:42 [facility] 11/27 01:57 Order name: Chest Pa And Lat (2 Views) XRAY; Complete Time: 03:42 mh7 Administered Medications: 02:39 Drug: morphine 4 mg Route: IM; Site: Ventrogluteal RIGHT; sf 03:28 Follow up: Response: No adverse reaction sf 03:31 Drug: Ondansetron (Zofran) 4 mg Route: PO; sf 05:03 Follow up: Response: No adverse reaction sf Disposition: 11/27/20 04:09 Discharged to Home. Impression: Rib Contusion. - Condition is Stable. - Discharge Instructions: Rib Contusion. - Prescriptions for Tramadol 50 mg Oral Tablet - take 1 tablet by ORAL route every 8 hours As needed as needed; 10 tablet. - Medication Reconciliation Form, Thank You Letter, Antibiotic Education, Prescription Opioid Use form. - Follow up: Private Physician; When: 1 - 2 days; Reason: Worsening of condition, Recheck today's complaints, Continuance of care, Re-evaluation by your physician. - Problem is new. - Symptoms have improved. Signatures: Dispatcher [employer] EDMS Katy Cameron RN RN bb Jaret Donahue MD MD [facility] Husam Parks RN RN sf Corrections: (The following items were deleted from the chart) 02:18 01:51 Home Meds: Unable to obtain; sf sf 05:43 04:09 11/27/2020 04:09 Discharged to Home. Impression: Rib Contusion. Condition is bb Stable. Forms are Medication Reconciliation Form, Thank You Letter, Antibiotic Education, Prescription Opioid Use. Follow up: Private Physician; When: 1 - 2 days; Reason: Worsening of condition, Recheck today's complaints, Continuance of care, Re-evaluation by your physician. Problem is new. Symptoms have improved. [facility]
[2020-11-27 15:22] VITALS: O2SAT 96
[2020-11-27 15:25] VITALS: BP 95/66; TEMP 97.6
--- NOTE | 2020-11-29 11:02 | RAD REPORT ---
EXAM DESCRIPTION: RAD - Chest Pa And Lat (2 Views) - 11/27/2020 3:17 am CLINICAL HISTORY: Fall TECHNIQUE: Two views of the chest are submitted. COMPARISON: None available for comparison FINDINGS: Lungs: Coarsened interstitial markings. No focal consolidation. Pleura: No appreciable effusion. No pneumothorax. Heart: The cardiothoracic silhouette is enlarged. Left chest wall triple lead pacer. Mediastinum: Thoracic aortic atherosclerosis. Bones: Remote left humeral neck fracture. No acute fracture. Upper abdomen: Right upper quadrant surgical clips. Other: Right axillary and breast surgical clips. EXAM DESCRIPTION: XR Ribs Left (accession [id number]) CLINICAL HISTORY: Fall TECHNIQUE: 2 rib detail views of the left hemithorax are submitted. COMPARISON: None available for comparison FINDINGS: Bones: No acute rib fracture. Remote left humeral neck fracture. Lungs: Coarsened interstitial markings. No focal consolidation. Pleura: No appreciable effusion. No pneumothorax. Heart: The cardiothoracic silhouette is enlarged. Left chest wall triple lead pacer. Mediastinum: Thoracic aortic atherosclerosis. Upper abdomen: Right upper quadrant surgical clips. Other: Right axillary and breast surgical clips. IMPRESSION: CHEST: No acute injury. LEFT RIBS: No acute injury. Electronically signed by: Chata Navarro MD 11/27/2020 3:46 AM CDT Due to temporary technical issues with the PACS/Fluency reporting system, reports are being signed by the in house radiologist without review as a courtesy to ensure prompt reporting. The interpreting r adiologist is fully responsible for the content of the report.
--- NOTE | 2020-11-29 11:03 | RAD REPORT ---
EXAM DESCRIPTION: RAD - Ribs Left - 11/27/2020 3:17 am CLINICAL HISTORY: Fall TECHNIQUE: Two views of the chest are submitted. COMPARISON: None available for comparison FINDINGS: Lungs: Coarsened interstitial markings. No focal consolidation. Pleura: No appreciable effusion. No pneumothorax. Heart: The cardiothoracic silhouette is enlarged. Left chest wall triple lead pacer. Mediastinum: Thoracic aortic atherosclerosis. Bones: Remote left humeral neck fracture. No acute fracture. Upper abdomen: Right upper quadrant surgical clips. Other: Right axillary and breast surgical clips. EXAM DESCRIPTION: XR Ribs Left (accession [id number]) CLINICAL HISTORY: Fall TECHNIQUE: 2 rib detail views of the left hemithorax are submitted. COMPARISON: None available for comparison FINDINGS: Bones: No acute rib fracture. Remote left humeral neck fracture. Lungs: Coarsened interstitial markings. No focal consolidation. Pleura: No appreciable effusion. No pneumothorax. Heart: The cardiothoracic silhouette is enlarged. Left chest wall triple lead pacer. Mediastinum: Thoracic aortic atherosclerosis. Upper abdomen: Right upper quadrant surgical clips. Other: Right axillary and breast surgical clips. IMPRESSION: CHEST: No acute injury. LEFT RIBS: No acute injury. Electronically signed by: Chata Navarro MD 11/27/2020 3:46 AM CDT Due to temporary technical issues with the PACS/Fluency reporting system, reports are being signed by the in house radiologist without review as a courtesy to ensure prompt reporting. The interpreting r adiologist is fully responsible for the content of the report.
== END 2020-11-27 05:43 | disposition home or self-care (01) ==
LOC: ER 00:26
DX: S20.212A Contusion of left front wall of thorax, initial encounter (principal); W19.XXXA Unspecified fall, initial encounter; Z95.0 Presence of cardiac pacemaker; F90.9 Attention-deficit hyperactivity disorder, unspecified type; F41.9 Anxiety disorder, unspecified; I48.91 Unspecified atrial fibrillation; I25.10 Atherosclerotic heart disease of native coronary artery without angina pectoris; Z85.828 Personal history of other malignant neoplasm of skin; Z85.3 Personal history of malignant neoplasm of breast; I11.0 Hypertensive heart disease with heart failure; I50.9 Heart failure, unspecified; I25.2 Old myocardial infarction
CPT/HCPCS: 71046; 80307; 96372; 99284

== ENCOUNTER 2020-12-10 03:36 | Emergency (ER) | payer OTHER ==
--- OUTSIDE RECORDS SUMMARY | 2020-12-10 03:39 | XMS REPORT | Continuity of Care Document ---
:1960 Author Organization Formerly [facility] t Address [address] [place] [address] Care Team Providers Name Role Phone YASIR Attending Clinician Unavailable Hudson NAVARRO Attending Clinician Gillian JACKSON R Attending Clinician Provider, Urgent Care Attending Clinician Unavailable Lore BURKS, F Attending Clinician Hemalatha Ring RN Attending Clinician Unavailable AKINS Attending Clinician Unavailable YASIR Admitting Clinician Unavailable MABLE Admitting Clinician Unavailable Problems This patient has no known problems. Allergies, Adverse Reactions, Alerts This patient has no known allergies or adverse reactions. Medications This patient has no known medications. Procedures This patient has no known procedures. Encounters Start End Encounter Admission Attending Care Care Encounter Source Date/Time Date/Time Type Type Clinicians Facility Department ID 2020-12-04 2020-12-06 Inpatient YASIR [facility] [id number] [place] 00:00:00 00:00:00 JENNIFER [address] 2020-12-05 2020-12-05 Telephone MOLLY Treviño [id number] 00:00:00 00:00:00 [facility] [id number] [place] [id number] [facility] [phone] nal [address] 2020-12-02 2020-12-02 Emergency MOLLY French [id number] 10:56:00 12:00:00 Lori Romero [id number] [place] [id number] [place] [id number] 2020-12-02 2020-12-02 [facility] [id number] 07:50:30 09:40:15 Care [facility] [id number] Care [place] [id number] Profess[place] [phone] nal 044 [address] 2020-12-02 2020-12-02 [facility] [id number] 00:00:00 00:00:00 [facility] [id number] [place] [id number] Professio [phone] nal 0[address] 2020-11-30 2020-11-30 [facility] [id number] 00:00:00 00:00:00 [facility] [id number] [place] [id number] Profess[place] [phone] nal 044 [address] 2020-11-26 2020-11-27 Emergency [facility] [id number] 21:15:00 00:04:00 Ernestina Romero [id number] [place] [id number] [place] [id number] 2020-11-27 2020-11-27 Nurse Hemalatha CALDERON [id number] 00:00:00 00:00:00 Triage ROLANDO Ring [id number] [facility] [id number] 2020-09-22 2020-09-22 [facility] [id number] 00:00:00 00:00:00 [facility] [id number] [place] [id number] [facility] [phone] nal 044 [address] 2020-09-01 2020-09-01 Office [place] [facility] [id number] 12:28:02 12:43:02 Visit [facility] [id number] [place] [id number] Evel[place] [phone] nal 044 [address] 2020-06-29 2020-07-04 Inpatient [facility] [id number] [place] 00:00:00 00:00:[address] Results This patient has no known results.
[2020-12-10 04:59] LABS: Absolute Lymphocytes (CBC) 0.6 K/uL (0.7-4.9); Basophils % 1.1 % (0-1.3); Hematocrit 39.3 % (36.0-45.0); MPV 9.4 fL (7.6-11.3); RBC Red Blood Cell Count 3.98 M/uL (3.86-4.86)
[2020-12-10 05:22] LABS: ALT/SGPT 27 U/L (12-78); AST/SGOT 28 U/L (15-37); Albumin 3.9 g/dL (3.4-5.0); Alkaline Phosphatase 174 U/L (45-117); BUN Blood Urea Nitrogen 44 mg/dL (7-18); Bicarbonate 30 mmol/L (21-32); Bilirubin Direct 0.4 mg/dL (0-0.2); Glucose Level 96 mg/dL (74-106); NT PRO-BNP 9939 pg/mL (<125); Potassium 3.8 mmol/L (3.5-5.1); Protein, Total 7.4 g/dL (6.4-8.2); Sodium Level 137 mmol/L (136-145); Troponin (Emerg Dept Use Only) < 0.02 ng/mL (0.0-0.045)
[2020-12-10 05:25] LABS: Protime INR 1.19
--- NOTE | 2020-12-10 07:12 | EDPHYS ---
Physician Documentation [facility] Name: Lise Loera Age: 60 yrs Sex: Female : 1960 Arrival Date: 12/10/2020 Time: 03:47 Bed 5 Private MD: ED Physician Pierre Roldan HPI: 12/10 05:18 This 60 yrs old Female presents to ER via EMS with complaints of hands and tw4 legs swelling. 05:18 The patient presents with a history of heart skipping beats. Context: The symptoms tw4 occur at rest. Onset: The symptoms/episode began/occurred just prior to arrival. Duration: The patient or guardian reports a single episode, that is now resolved. Modifying factors: The symptoms are aggravated by nothing. The symptoms are alleviated by nothing. The patient has not experienced similar symptoms in the past. Historical: - Allergies: 04:00 Codeine; rr5 04:00 Eliquis; rr5 04:00 PENICILLINS; rr5 04:00 Tylenol; rr5 - Home Meds: 04:00 amiodarone 100 mg Oral tab 1 tab 2 times per day [Active]; Aspirin EC Oral [Active]; rr5 Entresto 49-51 mg Oral tab [Active]; Lasix 20 mg Oral tab 60 mg in am, 40 mg in pm [Active]; potassium chloride 10 mEq Oral cpER 1 cap once daily [Active]; Xanax 2 mg Oral tab 1 tab 3 times per day [Active]; - PMHx: 04:00 ADD/ADHD; Anxiety; Atrial Fib; CAD; cancer - skin; Cancer, Breast; CHF; Hypertension; rr5 Myocardial infarction; Pacemaker; - PSHx: 04:00 Cholecystectomy; ; lymph node removed right breast; Hysterectomy; rr5 - Immunization history:: Adult Immunizations up to date. - Social history:: Smoking status: unknown. ROS: 05:24 Constitutional: Negative for fever, chills, and weight loss, Eyes: Negative for injury, tw4 pain, redness, and discharge, Respiratory: Negative for shortness of breath, cough, wheezing, and pleuritic chest pain, Abdomen/GI: Negative for abdominal pain, nausea, vomiting, diarrhea, and constipation, Back: Negative for injury and pain, MS/Extremity: Negative for injury and deformity, Skin: Negative for injury, rash, and discoloration, Neuro: Negative for headache, weakness, numbness, tingling, and seizure. 05:24 Cardiovascular: Positive for palpitations. Exam: 05:18 Constitutional: This is a well developed, well nourished patient who is awake, alert, tw4 and in no acute distress. Head/Face: Normocephalic, atraumatic. Chest/axilla: Normal chest wall appearance and motion. Nontender with no deformity. No lesions are appreciated. Respiratory: Lungs have equal breath sounds bilaterally, clear to auscultation and percussion. No rales, rhonchi or wheezes noted. No increased work of breathing, no retractions or nasal flaring. Abdomen/GI: Soft, non-tender, with normal bowel sounds. No distension or tympany. No guarding or rebound. No evidence of tenderness throughout. Skin: Warm, dry with normal turgor. Normal color with no rashes, no lesions, and no evidence of cellulitis. MS/ Extremity: Pulses equal, no cyanosis. Neurovascular intact. Full, normal range of motion. Neuro: Awake and alert, GCS 15, oriented to person, place, time, and situation. Cranial nerves II-XII grossly intact. Motor strength 5/5 in all extremities. Sensory grossly intact. Cerebellar exam normal. Normal gait. 05:18 Cardiovascular: Rate: normal, Rhythm: regular, Pulses: no pulse deficits are appreciated. Vital Signs: 04:00 BP 115 / 65; Pulse 64; Resp 20; Temp 97.8; Pulse Ox 95% ; Weight 52.62 kg; Height 5 ft. rr5 2 in. (157.48 cm); Pain 0/10; 05:08 BP 108 / 59; Pulse 60; Resp 17; Pulse Ox 94% ; rr5 06:21 BP 112 / 58; Pulse 60; Resp 19; Pulse Ox 98% ; rr5 07:39 BP 108 / 55; Pulse 65; Resp 18; Pulse Ox 98% on R/A; Pain 0/10; ll1 04:00 Body Mass Index 21.22 (52.62 kg, 157.48 cm) rr5 MDM: 03:53 Patient medically screened. 12/10 04:02 Order name: Basic Metabolic Panel 12/10 04:02 Order name: CBC with Diff 12/10 04:02 Order name: LFT's; Complete Time: 07:02 12/10 07:03 Interpretation: Normal except: ALK 174; BILID 0.4. 12/10 04:02 Order name: Magnesium; Complete Time: 07:02 12/10 07:03 Interpretation: Abnormal: MG 3.0. 12/10 04:02 Order name: NT PRO-BNP; Complete Time: 07:02 12/10 07:03 Interpretation: Abnormal: NT PRO-BNP 9939. 12/10 04:02 Order name: PT-INR; Complete Time: 07:02 12/10 07:03 Interpretation: Normal except: PT 13.7. 12/10 04:02 Order name: Troponin (emerg Dept Use Only); Complete Time: 07:02 12/10 07:03 Interpretation: Within normal limits: TROPED < 0.02. 12/10 04:02 Order name: XRAY Chest (1 view) 12/10 04:02 Order name: EKG; Complete Time: 04:03 12/10 04:02 Order name: Cardiac monitoring; Complete Time: 04:18 12/10 04:02 Order name: EKG - Nurse/Tech; Complete Time: 04:18 12/10 04:02 Order name: Basic Metabolic Panel; Complete Time: 07:02 EDMS 12/10 07:03 Interpretation: Normal except: BUN 44; CRE 2.27; GFR 22. 12/10 04:02 Order name: CBC with Automated Diff; Complete Time: 07:02 EDMS 12/10 07:03 Interpretation: MCV 98.7; RDW 16.8. 12/10 04:02 Order name: IV Saline Lock; Complete Time: 04:18 12/10 04:02 Order name: Labs collected and sent; Complete Time: 04:18 12/10 04:02 Order name: O2 Per Protocol; Complete Time: 04:18 12/10 04:02 Order name: O2 Sat Monitoring; Complete Time: 04:18 tw4 EC:08 Rate is 65 beats/min. Rhythm is regular. QRS [place] is Normal. Left axis deviation noted. tw4 [place] interval is normal. QRS interval is normal. QT interval is normal. No Q waves. T waves are Normal. Clinical impression: VENTRICULARPACED RHYTYM. Interpreted by me. Reviewed by me. Administered Medications: 07:18 Drug: Lasix (furosemide) 20 mg Route: IVP; Site: left antecubital; ll1 07:40 Follow up: Response: No adverse reaction; RASS: Alert and Calm (0) ll1 Disposition: 12/10/20 07:11 Discharged to Home. Impression: Palpitations. - Condition is Stable. - Discharge Instructions: Heart Failure, Holter Monitoring, Palpitations, Palpitations, [id number]. - Medication Reconciliation Form, Thank You Letter, Antibiotic Education, Prescription Opioid Use form. - Follow up: Private Physician; When: Upon discharge from the Emergency Department; Reason: Recheck today's complaints, Continuance of care, Re-evaluation by your physician. - Problem is new. - Symptoms have improved. Signatures: Dispatcher [employer] EDPierre Harden MD MD tw4 Darryl Naylor RN RN rr5 Tushar Luis RN RN ll1 Corrections: (The following items were deleted from the chart) 05:25 05:18 Constitutional: Negative for fever, chills, and weight loss, Eyes: Negative for tw4 injury, pain, redness, and discharge, Cardiovascular: Negative for chest pain, palpitations, and edema, Respiratory: Negative for shortness of breath, cough, wheezing, and pleuritic chest pain, Abdomen/GI: Negative for abdominal pain, nausea, vomiting, diarrhea, and constipation, Back: Negative for injury and pain, MS/Extremity: Negative for injury and deformity, Skin: Negative for injury, rash, and discoloration, Neuro: Negative for headache, weakness, numbness, tingling, and seizure, tw4 07:41 07:11 12/10/2020 07:11 Discharged to Home. Impression: Palpitations. Condition is ll1 Stable. Forms are Medication Reconciliation Form, Thank You Letter, Antibiotic Education, Prescription Opioid Use. Follow up: Private Physician; When: Upon discharge from the Emergency Department; Reason: Recheck today's complaints, Continuance of care, Re-evaluation by your physician. Problem is new. Symptoms have improved. tw4
--- NOTE | 2020-12-10 07:12 | ER ---
Nurse's Notes [facility] Name: Lise Loera Age: 60 yrs Sex: Female : 1960 Arrival Date: 12/10/2020 Time: 03:47 Bed 5 Private MD: Diagnosis: Palpitations Presentation: 12/10 04:00 Chief complaint: EMS states: she complaint of hands, legs swelling and she heard her rr5 defibrillator/pacemaker buzz twice she was instructed that if she hear that sound it means the battery will . 04:00 Coronavirus screen: Client denies travel out of the [place] in the last 14 days. At this rr5 time, the client does not indicate any symptoms associated with coronavirus-19. Ebola Screen: Patient negative for fever greater than or equal to 101.5 degrees Fahrenheit, and additional compatible Ebola Virus Disease symptoms Patient denies exposure to infectious person. Patient denies travel to an Ebola-affected area in the 21 days before illness onset. Initial Sepsis Screen: Does the patient meet any 2 criteria? No. Patient's initial sepsis screen is negative. Does the patient have a suspected source of infection? No. Patient's initial sepsis screen is negative. Risk Assessment: Do you want to hurt yourself or someone else? Patient reports no desire to harm self or others. Onset of symptoms was December 10, 2020. 04:00 Method Of Arrival: EMS: [facility] rr5 04:00 Acuity: ESTRELLITA 3 rr5 Historical: - Allergies: 04:00 Codeine; rr5 04:00 Eliquis; rr5 04:00 PENICILLINS; rr5 04:00 Tylenol; rr5 - Home Meds: 04:00 amiodarone 100 mg Oral tab 1 tab 2 times per day [Active]; Aspirin EC Oral [Active]; rr5 Entresto 49-51 mg Oral tab [Active]; Lasix 20 mg Oral tab 60 mg in am, 40 mg in pm [Active]; potassium chloride 10 mEq Oral cpER 1 cap once daily [Active]; Xanax 2 mg Oral tab 1 tab 3 times per day [Active]; - PMHx: 04:00 ADD/ADHD; Anxiety; Atrial Fib; CAD; cancer - skin; Cancer, Breast; CHF; Hypertension; rr5 Myocardial infarction; Pacemaker; - PSHx: 04:00 Cholecystectomy; ; lymph node removed right breast; Hysterectomy; rr5 - Immunization history:: Adult Immunizations up to date. - Social history:: Smoking status: unknown. Screenin:52 Abuse screen: Denies threats or abuse. Denies injuries from another. Nutritional rv screening: No deficits noted. Tuberculosis screening: No symptoms or risk factors identified. Fall Risk None identified. Assessment: 04:51 General: Appears comfortable, Behavior is calm, cooperative, TALKATIVE. Pain: Denies rv pain. Neuro: Level of Consciousness is awake, alert, obeys commands, Oriented to person, place, time, situation. Cardiovascular: Patient's skin is warm and dry. Respiratory: Airway is patent Respiratory effort is even, unlabored. Derm: Skin is intact. 06:00 Reassessment: Patient appears in no apparent distress at this time. Patient is alert, rr5 oriented x 3, equal unlabored respirations, skin warm/dry/pink. awaiting for results. 07:00 Reassessment: No changes from previously documented assessment. Patient and/or family ll1 updated on plan of care and expected duration. Pain level reassessed. Patient states feeling better. Vital Signs: 04:00 BP 115 / 65; Pulse 64; Resp 20; Temp 97.8; Pulse Ox 95% ; Weight 52.62 kg; Height 5 ft. rr5 2 in. (157.48 cm); Pain 0/10; 05:08 BP 108 / 59; Pulse 60; Resp 17; Pulse Ox 94% ; rr5 06:21 BP 112 / 58; Pulse 60; Resp 19; Pulse Ox 98% ; rr5 07:39 BP 108 / 55; Pulse 65; Resp 18; Pulse Ox 98% on R/A; Pain 0/10; ll1 04:00 Body Mass Index 21.22 (52.62 kg, 157.48 cm) rr5 ED Course: 03:47 Patient arrived in ED. iw 03:53 Pierre Roldan MD is Attending Physician. tw4 04:15 Darryl Naylor, DAMASO is Primary Nurse. rr5 04:21 Triage completed. rr5 04:26 XRAY Chest (1 view) In Process Unspecified. EDMS 04:50 Initial lab(s) drawn, by me, sent to lab. Inserted saline lock: 20 gauge in left rv forearm, using aseptic technique. Blood collected. 04:51 Arm band placed on right wrist. Patient placed in the treatment room, on a stretcher, rv Patient notified of wait time. 04:52 Patient has correct armband on for positive identification. communications lead on. Pulse rv ox on. NIBP on. 07:40 No provider procedures requiring assistance completed. IV discontinued, intact, ll1 bleeding controlled, No redness/swelling at site. Pressure dressing applied. Administered Medications: 07:18 Drug: Lasix (furosemide) 20 mg Route: IVP; Site: left antecubital; ll1 07:40 Follow up: Response: No adverse reaction; RASS: Alert and Calm (0) 1 Output: 06:24 Urine: 950ml (Voided); Total: 950ml. rr5 Outcome: 07:11 Discharge ordered by . tw4 07:40 Discharged to home ambulatory. ll1 07:40 Condition: stable 07:40 Discharge instructions given to patient, Instructed on discharge instructions, follow up and referral plans. Demonstrated understanding of instructions, follow-up care. 07:41 Patient left the ED. ll1 Signatures: Dispatcher [employer] EDMS Azalia Robertson RN RN iw Pierre Roldan MD MD tw4 Js Tyson RN RN rv Roque, Raymond, RN RN rr5 Tushar Luis RN RN ll1
[2020-12-10] MEDS ORDERED: FUROSEMIDE 20 MG/ 2ML VIAL ONE (07:31)
[2020-12-10 07:49] VITALS: TEMP 97.8
[2020-12-10 07:51] VITALS: O2SAT 98
[2020-12-10 07:53] VITALS: BP 108/55
--- NOTE | 2020-12-10 08:24 | RAD REPORT ---
EXAM DESCRIPTION: Manpreet Single View12/10/2020 4:26 am CLINICAL HISTORY: Chest pain COMPARISON: November 27, 2020 FINDINGS: The lungs appear clear of acute infiltrate. The heart is markedly enlarged. Pacemaker rain ds are in place. IMPRESSION: No acute abnormalities displayed
--- NOTE | 2020-12-11 07:59 | EKG ---
Test Date: 2020-12-10 Test Time: 04:07:51 Machine Sewer: RR MEASUREMENT RESULTS: Intervals: Rate: 65 AL: 124 QRSD: 172 QT: 534 QTc: 555 [place]: P: 62 AL: 124 QRS: -57 T: -31 INTERPRETIVE STATEMENTS: Electronic ventricular pacemaker Compared to ECG 03/17/2019 07:48:09 No significant changes Electronically Signed On 12-11-20 07:57:20 CDT by Juma Dickey
== END 2020-12-10 07:41 | disposition home or self-care (01) ==
LOC: ER 03:36
DX: R00.2 Palpitations (principal); R22.33 Localized swelling, mass and lump, upper limb, bilateral; R22.43 Localized swelling, mass and lump, lower limb, bilateral; F90.9 Attention-deficit hyperactivity disorder, unspecified type; F41.9 Anxiety disorder, unspecified; I48.91 Unspecified atrial fibrillation; I25.10 Atherosclerotic heart disease of native coronary artery without angina pectoris; Z85.828 Personal history of other malignant neoplasm of skin; Z85.3 Personal history of malignant neoplasm of breast; I11.0 Hypertensive heart disease with heart failure; I50.9 Heart failure, unspecified; I25.2 Old myocardial infarction
CPT/HCPCS: 93005; 85025; 80048; 36415; 83735; 85610; 80076; 84484; 83880; 71045; 96374; 99284; J1940

== ENCOUNTER 2020-12-25 03:21 | Emergency (ER) | payer OTHER ==
--- OUTSIDE RECORDS SUMMARY | 2020-12-25 03:27 | XMS REPORT | Continuity of Care Document ---
:1960 Author Organization [facility] t Address [address] [place] [address] Care Team Providers Name Role Phone Hudson NAVARRO Primary Care Physician Doctor Unassigned, Name Attending Clinician Unavailable Fransico Attending Clinician Unavailable Guzman PETIT Attending Clinician Unavailable Jamie Benson DO Attending Clinician Baylee NAVARRO Attending Clinician Hudson NAVARRO Attending Clinician Gillian JACKSON, R Attending Clinician Provider, Urgent Care Attending Clinician Unavailable Lore BURKS, F Attending Clinician Hemalatha Ring RN Attending Clinician Unavailable Dior PETIT, D Attending Clinician Unavailable Clinton GARCIA M Attending Clinician Unavailable Mable NAVARRO, H. Attending Clinician BAYLEE Admitting Clinician Unavailable MABLE Admitting Clinician Unavailable Payers Payer Name Policy Type Policy Effective Date Expiration Source Number Date MEDICAREMEDICARE PART [id number] 2010 Un iversity of A & 00:00:00 [facility] AclazdmmBK292/ formerly [facility] [phone]. [address]TS[address] AMANDA JOSEPH [id number] MEDICAREMEDICARE PART [id number] 2010 [place] liu A AND 00:00:00 Shinto [id number] 2009[place] Condition Condition Condition Status Onset Resolution Last Treating Co mments Source Name Details Category Date Date Treatment Clinician Date Other Other Disease Active [place] chronic chronic 4-17 Methodi pain pain 00:00: st 00 Acute Acute Disease Active 2019-08 [place] non-ST non-ST 1-10 Methodi segment segment 00:00: st elevation elevation 00 myocardial myocardial infarction infarction Hypokalemi Hypokalemi Disease Active [place] a a 9-15 Methodi 00:00: st 00 VT VT Disease Active [facility] (ventricul (ventricul 15 Me thodi ar ar 00:00: st tachycardi tachycardi 00 a) a) Delirium Delirium Disease Active [place] due to due to 04-11 Methodi multiple multiple 00:00: st etiologies etiologies 00 A-fib A-fib Disease Active [place] 8 Methodi 00:00: st 00 Cardiogeni Cardiogeni Disease Active [place] c shock c shock 04-10 Methodi 00:00: st 00 Atrial Atrial Disease Active [place] fibrillati fibrillati 8-21 Me thodi on on 00:00: st 00 Anxiety Anxiety Disease Active [place] 8-19 Methodi 00:00: st 00 Acute Acute Disease Active [place] right right 819 Methodi otitis otitis 00:00: st media media 00 Shortness Shortness Disease Active Jamie ston of breath of breath 8-18 Meth chris 00:00: st 00 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 2-22 Method i and and 00:00: st diastolic diastolic 00 congestive congestive heart heart failure failure Malignant Malignant Disease Active 2006-08 Uni vers neoplasm neoplasm 1-15 ity of of of 00:00: [place] lower-inne lower-inne 00 Me dical r quadrant r quadrant Br anch of female of female breast breast Generalize Generalize Disease Active 2006-08 U nivers d anxiety d anxiety 0-08 ity of disorder disorder 00:00: [place] 00 Medical Branch Allergies, Adverse Reactions, Alerts Allergy Allergy Status Severity Reaction(s) Onset Inactive Treating Comm ents Source Name Type Date Date Clinician Other Propensi Active Rash Surgical [place] ty to 12-04 Mask Methodi adverse 00:00: st reaction 00 s Codeine Propensi Active GI Vomiting [place] ty to Intolerance 10-11 Metho di adverse 00:00: st reaction 00 s to drug Codeine Propensi Active Nausea Only 2006-08 Other Un jennifer ty to 0-08 reaction( ity of adverse 00:00: s): GI [place] reaction 00 Intoleran Medic al s ceVomitin Branch g Penicill Propensi Active Rash 2006-08 [place] ins ty to 0-08 Methodi adverse 00:00: st reaction 00 s to drug Penicill Propensi Active Unknown - 2006-08 Highly Uni vers ins ty to See 0-08 allergic ity of adverse comments, 00:00: [place] reaction Anaphylaxis 00 Med ical s Branch Family History Family Member Diagnosis Comments Start Date Stop Date Source Natural father Heart disease Brodie Davis Natural mother Liver disease Brodie Davis Social History Social Habit Start Date Stop Date Quantity Comments Source Exposure to Not sure University of SARS-CoV-2 (event) [place] [facility] History of tobacco Current smoker [place] Davis use Cigarettes smoked 2020-12-04 2020-12-04 Brodie Davis current (pack per 00:00:00 00:00:00 day) - Reported Tobacco use and 2020-12-04 2020-12-04 Never used [facility] ethodist exposure 00:00:00 00:00:00 Alcohol intake 2020-12-04 2020-12-04 Current [facility] thodist 00:00:00 00:00:00 non-drinker of alcohol (finding) Sex Ass[birth year] [facility] josé antonioodist 00:00:00 00:00:00 Smoking Status Start Date Stop Date Source Former smoker 2020-12-04 00:00:00 2020-12-04 00:00:00 Brodie Davis Medications Ordered Filled Start Stop Current Ordering Indication Dosage Frequency Signature Comments Components Source Medication Medication Date Date Medication? Clinician (SIG) Name Name aspirin 325 Yes 325mg QD Take 325 [place] MG tablet 4-19 mg by Methodi 13:59: mouth st 50 daily. furosemide 2021-0 Yes 80mg Q.5D Take 80 mg [place] (LASIX) 80 4-19 by mouth 2 Met hodi mg tablet 13:59: (two) st 50 times a day. amIODarone Yes 200mg QD Take 200 [place] (PACERONE) 4-19 mg by Methodi 200 MG 13:59: mouth st tablet 50 daily. ALPRAZolam Yes 2mg Q.[id number] Take 2 mg [place] (XANAX) 2 4-19 [id number] by mouth 3 Methodi MG tablet 13:59: 3D (three) st 49 times a day. sacubitriL- Yes 1{tbl} Q.5D Take 1 [place] valsartan 4-19 tablet by Martine turner (ENTRESTO) 13:59: mouth 2 st 24-26 mg 49 (two) tablet per times a tablet day. potassium Yes 20meq QD Take 20 [place] chloride 4-19 mEq by Methodi (K-DUR) 10 13:59: mouth st MEQ CR 49 daily. tablet traMADoL 50 Yes acute pain 50mg Take 1 Univers mg tablet 4-10 tablet by ity o f 00:00: mouth [place] 00 every 6 Medical (six) Branch hours as needed for Pain (scale 7-10). Indication s: acute pain ALPRAZolam Yes Generalized TAKE 1 Univers 2 mg tablet 1-13 anxiety TABLET BY ity of 00:00: disorder MOUTH [place] 00 THREE Medical TIMES Branch DAILY NEEDED amIODarone 2019-08- No 200mg Q.5D Take 1 Jamie ston (Pacerone) -08-03 tablet Method i 200 MG 00:00: 23:59 ([address] tablet 00 :00 total) by mouth 2 (two) times a day for 30 days. aspirin 2019-08- No 325mg QD Take 1 [place] (ECOTRIN) 09-03-15 tablet Methodi 325 MG 00:00: 23:59 ([address] enteric 00 :00 total) by coated mouth tablet daily for 30 days. atorvastati 2019-08- No 20mg QD Take 1 Jamie ston n (LIPITOR) 09-03-15 tablet (20 M ethodi 20 mg 00:00: 23:59 mg total) st tablet 00 :00 by mouth nightly for 30 days. potassium 2019-08- No 20meq QD Take 2 [place] chloride -15 12-15 tablets Methodi (K-DUR) 10 00:00: 23:59 ([address] MEQ CR 00 :00 total) by tablet mouth daily for 30 days. metoprolol 2019-08- No 12.5mg QD Take 0.5 [place] succinate 15 12-15 tablets Method i XL (Toprol 00:00: 23:59 (12.[address] XL) 25 mg 00 :00 total) by 24 hr mouth tablet daily for 30 days. HOLD DOSE FOR SBP LESS THAN 100 AND/ OR HR LESS THAN 50 furosemide 2019-08- No 40mg QD Take 2 [place] (LASIX) 20 15 12-15 tablets Metho di mg tablet 00:00: 23:59 ([address] 00 :00 total) by mouth daily for 30 days. aspirin 81 2019-08- No 324mg QD Chew 4 Jamie ston mg chewable 09-02-13 tablets Meth chris tablet 00:00: 00:00 ([address] 00 :00 total) daily for 30 days. atorvastati 2019-08- No 20mg QD Take 1 Jamie ston n (LIPITOR) 09-01-15 tablet (20 M ethodi 20 mg 00:00: 00:00 mg total) st tablet 00 :00 by mouth nightly for 30 days. furosemide 2019-08- No 40mg QD Take 2 [place] (LASIX) 20 09-01 11-15 tablets Metho di mg tablet 00:00: 00:00 ([address] 00 :00 total) by mouth daily. potassium 2019-08- No 20meq QD Take 2 [place] chloride 09-01-15 tablets Methodi (K-DUR) 10 00:00: 00:00 ([address] MEQ CR 00 :00 total) by tablet mouth daily. amIODarone 2019-08- No 200mg Q.5D Take 1 Jamie ston (Pacerone) 09-01-15 tablet Method i 200 MG 00:00: 00:00 ([address] tablet 00 :00 total) by mouth 2 (two) times a day. aspirin 2019-08- No 325mg QD Take 1 [place] (ECOTRIN) 09-01 tablet Methodi 325 MG 00:00: 00:00 ([address] enteric 00 :00 total) by coated mouth tablet daily for 30 days. metoprolol 2019-08- No [...] mouth tablet daily for 30 days. metoprolol 2019-08- No 12.5mg QD Take 0.5 [place] succinate 09-01 tablets Method i XL (Toprol 00:00: 00:00 (12.[address] XL) 25 mg 00 :00 total) by 24 hr mouth tablet daily for 30 days. HOLD DOSE FOR SBP LESS THAN 100 AND HR LESS THAN 50 spironolact 2019-08- No .5mg QD Take 0.5 [place] one -11 11-11 mg by Methodi (ALDACTONE) 08:58: 00:[address] 25 MG 02 :00 daily. tablet spironolact 2019-08 Yes .5mg Take 0.5 Un jennifer one 25 mg 0-29 mg by ity of tablet 19:32: mouth. [address] furosemide 2019- No 40mg Q.5D Take 40 mg [place] (LASIX) 20 05-14 by mouth 2 Me thodi mg tablet 00:00: 00:00 (two) st 00 :00 times a day. DIGOXIN Yes Take by Univer s ORAL 7-10 mouth. ity of 19:00: [address] Branch ENALAPRIL Yes Take by Univ ers MALEATE 7-10 mouth. ity of ORAL 19:00: [address] Branch sacubitril- Yes Take by Un jennifer valsartan 7-10 mouth 2 ity of (ENTRESTO) 19:00: (two) [place] 24-26 mg 17 times Medical Tab daily. Branch furosemide Yes 80mg Take 80 mg U nivers (LASIX) 80 7-10 by mouth ity o f mg tablet 19:00: daily. [address] Branch dicyclomine Yes Abdominal 20mg Take 1 Univers (BENTYL) 20 5-07 pain, tablet by it y of mg tablet 00:00: unspecified mouth 4 [place] 00 abdominal (four) Medical location times Branch daily. OMEGA 3 Yes None Univers ORAL 9-21 Entered ity of 20:48: [address] Vital Signs Vital Name Observation Time Observation Value Comments Source Systolic blood 2020-12-06 11:44:29 99 mm[Hg] [place] n Shinto pressure Diastolic blood 2020-12-06 11:44:29 56 mm[Hg] Steph on Shinto pressure Heart rate 2020-12-06 11:44:29 70 /min Brodie Davis Body temperature 2020-12-06 11:44:29 36.44 Freya [place] [facility]into Respiratory rate 2020-12-06 11:44:29 18 /min [place] [facility]into Oxygen saturation in 2020-12-06 11:44:29 95 /min Brodie Davis Arterial blood by Pulse oximetry Body height 2020-12-04 09:34:00 157.5 cm Brodie Davis Body weight 2020-12-04 09:34:00 57.153 kg Brodie Davis BMI 2020-12-04 09:34:00 23.05 kg/m2 Brodie Davis Procedures Procedure Date / Time Performing Clinician Source Performed EXTERNAL PROVIDER RECORDS 2020-12-23 05:01:00 Doctor Unassigned, [facility] [place] [facility] RENAL 2020-12-06 11:29:45 Jennifer Beach Meth odist US HEPATIC 2020-12-06 11:28:58 Jennifer Beach Meth odkerri TTE COMPLETE, W CONTRAST, 2020-12-05 10:05:00 Jennifer Beach W DOPPLER ([id number]) XR SHOULDER 2+ VW LEFT 2020-12-05 08:43:27 Jennifer Beach on Shinto US RENAL 2020-12-04 21:20:00 Jennifer Beach Meth odist URINE CULTURE 2020-12-04 17:31:00 Jennifer Beach Meth odist URINALYSIS SCREEN AND 2020-12-04 10:05:00 Jennifer Beach n Shinto MICROSCOPY, WITH REFLEX TO CULTURE URINE DRUGS OF ABUSE 2020-12-04 10:05:[address] CHEST WO CONTRAST 2020-12-04 07:07:54 Jermaine Bensno on Shinto Jamie LACTIC ACID LEVEL, SEPSIS 2020-12-04 05:59:00 Jennifer Beach - NOW AND REPEAT 2X EVERY 3 HOURS TROPONIN 2020-12-04 05:59:00 Jennifer Beach odkerri COMPREHENSIVE METABOLIC 2020-12-04 05:59:00 Jermaine Benson PANEL Jamie CREATINE KINASE, TOTAL 2020-12-04 05:59:00 Jermaine Benson (CPK) Jamie B NATRIURETIC PEPTIDE 2020-12-04 05:59:00 Jermaine Benson ESTIMATED GFR 2020-12-04 05:59:00 Jermaine Benson PROTHROMBIN TIME WITH INR 2020-12-04 05:20:00 Jermaine Benson PARTIAL THROMBOPLASTIN 2020-12-04 05:20:00 Jermaine Benson TIME (PTT) Jamie XR CHEST 1 VW PORTABLE 2020-12-04 04:51:00 Jermaine Benson ECG 12-LEAD 2020-12-04 04:39:05 Jermaine Benson thodist Ayala URINALYSIS SCREEN AND 2020-12-04 04:35:00 Jermaine Benson MICROSCOPY, WITH REFLEX Jamie TO CULTURE URINE CULTURE 2020-12-04 04:35:00 Jermaine Benson COVID-19 QUALITATIVE PCR 2020-12-04 03:54:00 Jermaine Benson COMPREHENSIVE METABOLIC 2020-12-04 03:50:00 Jermaine Benson PANEL Jamie LACTIC ACID LEVEL, SEPSIS 2020-12-04 03:50:00 Jennifer Beach - NOW AND REPEAT 2X EVERY 3 HOURS CREATINE KINASE, TOTAL 2020-12-04 03:50:00 Jermaine Benson (CPK) Jamie TROPONIN 2020-12-04 03:50:00 Jennifer Beach B NATRIURETIC PEPTIDE 2020-12-04 03:50:00 Jremaine Benson HC COMPLETE BLD COUNT 2020-12-04 03:50:00 Jermaine Benson W/AUTO DIFF Jamie PROTHROMBIN TIME WITH INR 2020-12-04 03:50:00 Jermaine Benson PARTIAL THROMBOPLASTIN 2020-12-04 03:50:00 Jermaine Benson TIME (PTT) Jamie ESTIMATED GFR 2020-12-04 03:50:00 Jermaine Benson Tx nirali Ayala ECG ED PRELIMINARY 2020-12-04 03:42:29 Jermaine Benson INTERPRETATION Jamie THYROID STIMULATING 2020-07-02 14:25:00 Iván Cintron HORMONE BASIC METABOLIC PANEL 2020-07-02 02:25:00 Iván Cintron HC COMPLETE BLD COUNT 2020-07-02 02:25:00 Iván Cintron W/AUTO DIFF MAGNESIUM LEVEL 2020-07-02 02:25:00 Iván Cintron odkerri PHOSPHORUS LEVEL 2020-07-02 02:25:00 CintronIván bartlett ESTIMATED GFR 2020-07-02 02:25:00 Iván Cintron Meth odkerri BASIC METABOLIC PANEL 2020-07-01 03:55:00 CintronIván HC COMPLETE BLD COUNT 2020-07-01 03:55:00 CintronIvánist W/AUTO DIFF MAGNESIUM LEVEL 2020-07-01 03:55:00 Cintron, Iván Calloway Meth odist PHOSPHORUS LEVEL 2020-07-01 03:55:00 Cintron, Iván Calloway Met hodist ESTIMATED GFR 2020-07-01 03:55:00 Cintron, Iván Calloway Meth odist TROPONIN 2020-06-30 13:00:00 [facility] hod[facility] Frazier COVID-19 QUALITATIVE PCR 2020-06-30 12:15:00 Ishaan Siddiqui TTE COMPLETE, WO 2020-06-30 10:02:17 Ishaan Siddiqui Met hodkerri ANTONIO W THOMAS Christy ([id number]) NM LUNG PERFUSION IMAGING 2020-06-30 08:16:17 Cintron, Iván Davis B NATRIURETIC PEPTIDE 2020-06-30 06:54:00 Fegaing [facility] on Shinto Vy Frazier D-DIMER 2020-06-30 06:54:00 [facility] a[facility] Vy Frazier PROTHROMBIN TIME WITH INR 2020-06-30 06:54:00 [facility] Davis Vy De Balzak ECG 12-LEAD 2020-06-30 06:40:01 [facility] Met bernard Frazier BASIC METABOLIC PANEL 2020-06-30 04:45:00 Cintron, Iván Davis HC COMPLETE BLD COUNT 2020-06-30 04:45:00 Cintron, Iván Davis W/AUTO DIFF MAGNESIUM LEVEL 2020-06-30 04:45:00 Cintron, Iván Calloway Meth odist PHOSPHORUS LEVEL 2020-06-30 04:45:00 Cintron, Iván Calloway Met hodist TROPONIN 2020-06-30 04:45:00 Cintron, Iván Calloway Meth odist ESTIMATED GFR 2020-06-30 04:45:00 Cintron, Iván Calloway Meth odist TROPONIN 2020-06-30 01:25:00 CintronIván Meth odist ECG 12-LEAD 2020-06-30 01:05:27 Cintron, Iván Calloway Meth odist CREATINE KINASE, TOTAL 2020-06-29 21:45:00 Cintron, Iván Choi on Shinto (CPK) HC COMPLETE BLD COUNT 2020-06-29 21:45:00 Cintron, Iván merchant Shinto W/AUTO DIFF COMPREHENSIVE METABOLIC 2020-06-29 21:45:00 Cintron, Iván graf Shinto PANEL HCG QUALITATIVE, SERUM 2020-06-29 21:45:00 Cintron, Iván Choi on Shinto SCREEN MAGNESIUM LEVEL 2020-06-29 21:45:00 Cintron, Iván RosenbergMarco Calloway Meth odist ESTIMATED GFR 2020-06-29 21:45:00 Cintron, Iván RosenbergMarco Calloway Meth odist TROPONIN 2020-06-29 21:45:00 [facility], Iván RosenbergMarco Calloway Meth odist LIPID PANEL 2020-06-29 21:45:00 [facility], Iván RosenbergMarco Calloway Meth odist ECG 12-LEAD 2020-06-29 21:06:23 [facility], Iván RosenbergMarco Calloway Meth odist ECG 12-LEAD 2020-06-29 21:05:30 Cintron, Iván RosenbergMarco Calloway Meth odist XR CHEST 1 VW PORTABLE 2020-06-29 20:38:01 Cintron, Iván Choi on Shinto Plan of Care Planned Activity Planned Date Details Comments Source Future Scheduled 2021-06-17 Depression screening Uni versity of Test 00:00:00 (procedure) [code = [facility] dical 847141041] Branch Future Scheduled 2021-03-20 INFLUENZA VACCINE Rhoda merchant Shinto Test 00:00:00 [code = INFLUENZA VACCINE] Future Scheduled 2021-02-16 INFLUENZA VACCINE Postponed from Univ ersity of Test 00:00:00 (#1) [code = 04/20/2020 [facility] INFLUENZA VACCINE (Refused) Branch (#1)] Future Scheduled 2014 Screening for University of Test 00:00:00 malignant neoplasm [place] [facility] ical of lung (procedure) Branch [code = 536379514] Future Scheduled 2009 Screening for occult Uni versity of Test 00:00:00 blood in feces [facility] (procedure) [code = Branch 738430736] Future Scheduled 2009 Stool DNA-based Universi ty of Test 00:00:00 colorectal cancer [facility] screening Branch (procedure) [code = 868526764514348] Future Scheduled 2009 Flexible fiberoptic Univ ersity of Test 00:00:00 sigmoidoscopy [place] [facility] (procedure) [code = Branch 20647448] Future Scheduled 2009 Screening for University of Test 00:00:00 malignant neoplasm [place] Med ical of colon (procedure) Branch [code = 670490100] Future Scheduled 2009 Screening for University of Test 00:00:00 malignant neoplasm [place] [facility] ical of colon (procedure) Branch [code = 587921687] Future Scheduled 2009 Zoster Recombinant Unive rsity of Test 00:00:00 Vaccine (SHINGRIX) [place] Med ical (1 of 2) [code = Branch Zoster Recombinant Vaccine (SHINGRIX) (1 of 2)] Future Scheduled 2009 BREAST CANCER [place] [facility] thodist Test 00:00:00 SCREENING [code = BREAST CANCER SCREENING] Future Scheduled 2009 COLONOSCOPY [place] Met hodist Test 00:00:00 SCREENING [code = COLONOSCOPY SCREENING] Future Scheduled 2009 SHINGLES VACCINES [place] Shinto Test 00:00:00 (#1) [code = SHINGLES VACCINES (#1)] Future Scheduled 2009-06-07 Screening for University of Test 00:00:00 malignant neoplasm [place] [facility] ical of cervix Branch (procedure) [code = 053228562] Future Scheduled 2007-07-25 Screening for University of Test 00:00:00 malignant neoplasm [place] [facility] ical of breast Branch (procedure) [code = 839167783] Future Scheduled 1980 Screening for [place] Me thodist Test 00:00:00 malignant neoplasm of cervix (procedure) [code = 619076983] Future Scheduled 1978 DTaP,Tdap,and Td Univers ity of Test 00:00:00 Vaccines (1 - Tdap) [facility] dical [code = Branch DTaP,Tdap,and Td Vaccines (1 - Tdap)] Future Scheduled 1977 Hepatitis C [place] Met hodist Test 00:00:00 screening (procedure) [code = 509447242] Future Scheduled 1975 COVID-19 VACCINE (1) Jamie ston Shinto Test 00:00:00 [code = COVID-19 VACCINE (1)] Future Scheduled 1965 PNEUMOCOCCAL 0-64 Univer sity of Test 00:00:00 YEARS COMBINED [place] [facility] SERIES (1 of 3 - Branch PCV13) [code = PNEUMOCOCCAL 0-64 YEARS COMBINED SERIES (1 of 3 - PCV13)] Encounters Start End Encounter Admission Attending Care Care Encounter Source Date/Time Date/Time Type Type Clinicians Facility Department ID 2020-12-23 2020-12-23 Orders Doctor KVNG [id number] 00:00:00 00:00:00 Only Unassigned, ROLANDO [id number] [place] [facility] [id number] [id number] 2020-12-04 2020-12-06 Inpatient [facility], [facility] [id number] [place] 00:00:00 00:00:00 JENNIFER [address] 2020-12-05 2020-12-05 Telephone Hudson AZJACK [id number] 00:00:00 00:00:00 [facility] [id number] Index 4.2.7.2.686 Professio [phone] nal [address] One 2020-12-02 2020-12-02 Emergency [place], [facility] [id number] 10:56:00 12:00:00 Lori Romero [id number] [place] 4.2.7.2.686 [place] [id number] 2020-12-02 2020-12-02 Urgent [facility] [id number] 07:50:30 09:40:15 Care [facility] [id number] Care Index 4.2.7.2.686 [facility] [id number] nal 044 [address] One 2020-12-02 2020-12-02 Telephone [place] AZJACK [id number] 00:00:00 00:00:00 [facility] [id number] Index 4.2.7.2.686 Professio [phone] nal 044 Office [address] One 2020-11-30 2020-11-30 Telephone [place] [facility] [id number] 00:00:00 00:00:00 [facility] [id number] Index [id number] Professio [phone] [place] [address] [address] 2020-11-26 2020-11-27 [facility] [id number] 21:15:00 00:04:00 Ernestina Daryl Index [id number] [place] 4.2.7.2.686 [place] [id number] 2020-11-27 2020-11-27 Nurse Hemalatha CALDERON [id number] 00:00:00 00:00:00 Triage ROLANDO Ring 350.1.13.10 [facility] [id number] [id number] 2020-09-22 2020-09-22 Telephone [facility] [id number] 00:00:00 00:00:00 [facility] [id number] Index 4.2.7.2.686 Professio [phone] [place] [address] [address] 2020-09-01 2020-09-01 Office [facility] [id number] 12:28:02 12:43:02 Visit [facility] 350.1.13.10 Index 4.2.7.2.686 Professio [phone] [place] [address] [address] 2020-06-29 2020-07-04 Inpatient [facility] [id number] [place] 00:00:00 00:00:[address] Results Test Description Test Time Test Comments Results Result Sourc e Comments US Hepatic 2020-11-18 [facility] [address] 12:16:59 Incoming - 12/06/2020 12:20 PM CDT EXAMINATION : US HEPATICCLINICAL HISTORY: alk phos elevationTECHNIQUE: Ultrasound of liver.COMPARISON: Ultrasound abdomen 04/10/2017IMPRESSION: Distention of the hepatic veins and hepatic IVC, indicating elevated right heart pressures. Liver is normal in echogenicity, with no focal lesion identified. It is normal in size. Main portal vein patent and normal in size, 8 mm. Common bile duct 3 mm within normal range. The gallbladder [id number] US Renal 2020-11-18 [facility] [place] [address] 11:31:35 Incoming - 12/06/2020 11:34 AM CDT EXAMINATION : US RENALCLINICAL HISTORY: Renal failure acuteTECHNIQUE: Sonographic evaluation of the kidneys and bladder was performed with grayscale, color-flow, and spectral analysis.COMPARISON: None.FINDINGS: The kidneys are normal in size and echogenicity. There is no evidence of renal mass, calculi, or hydronephrosis.The right kidney measures 7.8 x 4.6 x 4.0 cm.The left kidney measures 8.4 x 3.7 x 4.1 cm.The urinary bladder is unremarkable.IMPRESS ION:Negative renal ultrasound examination.[facility]-2UA3 [id number] Urine culture 2020-12-05 18:47:48 Test Item Value Reference Range Interpretation Comme nts Urine culture isolate Mixed dianna <=10-3 Specimen InformationSpecimen (test code = 28631-3) col/cc Source : UrineSpecimen Site: [facility] Complete, (w Contrast, Strain and 3D if needed)2020-12-05 11:54:00Interface, Radiology Results In - 12/05/2020 11:55 AM CDT Echocardiography Report [id number] [address] Pat.Name: JLAEEL HERNANDEZ Pat.ID: [id number] St.Date: 12/05/2020 Refer.MD: JENNIFER BEACH MD Exam Time: 9:10:00 AM Study Type:Routine Echo Height: 62in Weight: 126lb BSA: 1.57 m2 Age: 2 1960,60Y Sex: FEMALE BP: 111/53 HR: 71 bpm Sonogrphr: ABRAHAM Leiva Pat. Stat.:Inpatient Room: [place] [address] Study Status:Final Echo Event ID:[id number] Order ID: [id number] Reason for Study:Cardiomyopathies - Initial eval of known or suspectedcardiomyopathy (e.g. restrictive, infiltrative, dilated, hypertophic,or genetic cardiomyopathyProcedures: 2D Echo, Colorflow Doppler, Portable, Intravenous DefinityContrastRace:C SUMMARY: ---LV size is severely enlarged. LV EF is severely depressed.RV size is enlarged. RV systolic function is severely depressed.Bi-atrial enlargement.Moderate tricuspid regurgitation. Diastolic dysfunction Grade III (Severe): Impaired relaxation withrestrictive LV filling pressures.Estimated PA systolic pressure is 50 mmHg, assuming a mean RAP of 10mmHg.Cannot exclude a layered apical thrombus. FINDINGS: LV: LV size is severelyenlarged. There is severe eccentric LV hypertrophy. Cannot exclude a layered apical thrombus. LV EF is severely depressed. Global hypokinesis. Estimated EF is <20%.RV: RV size is enlarged. A pacemaker wire is seen in the RV. RV systolic function is severely depressed.LA: LA volume is severely enlarged.RA: RA volume is severely enlarged. A pacemaker wire is seen.AO: Aortic root diameter is normal.BERNADINE: Trace posterior pericardial effusion.AV: No structural AV abnormalities noted.MV: Dilated annulus with apical tethering Mild mitral regurgitation. Etiology of MR is secondary to LV dysfunction and remodeling.PV: No structural PV abnormalities noted. Mild pulmonic regurgitation. TV: Dilated tricuspid annulus. Moderate tricuspid regurgitationDias: Diastolic dysfunction Grade III (Severe): Impaired relaxation with restrictive LV filling pressures.Other: Estimated PA sys tolic pressure is 50 mmHg, assuming a mean RAP of 10 mmHg. --MEASUREMENTS: 2DParasternal Long [place] Ao An 2.1 cm LVPWd 0.9 cm Ao Rtd 2.6 cm Index 1.6 cm/m2 LA Ds 3.5 cm IVSd 0.7 cm RWT 0.3 LVIDd 6.9 cm Index 4.4 cm/m2 LV Mass 237 g (87-129) LVIDs 6 cm LVM Index 151 g/m2 LV%fs 13.4 % LVOT 1.9 cm LA Sng Plane LA Area 26.3 cm2 (8.8-23.4) LAVol 81.4 ml Index 51.9 ml/m2 LA LngAx 6.9 cm RA Sng Plane RA Vol 131.9 ml Index 84 ml/m2 RA LngAx 5.8 cm RA Area 29.6 cm2 (8.3-19.5)LVOT LVOT Area 2.8 cm2 DOPPLERLVOT For Flow LVOT TVI 11.6 cm LVOTmnPG 1 mmHg LVOTpkVel 67.2 cm/s HR 63 bpm LVOTpkPG 1.8 mmHg LVOT LVOT SV 32.7 ml LVOT CO 2.1 l/min SVi 20.8 ml/m2 LVOT CI 1.3 l/m/m2MV E/A Ratio MV pkE 63.1 cm/s (60-130) MV E/A 3.4 MV pkA 18.7 cm/s Right Ventricle RV Sm 8.5 cm/s TV Pressure Gradient TV PkVel 317.2 cm/s TV PG 40.2 mmHg Signed 12/05/2020 11:54 [facility] Should[facility] 2+ Vw [id number] 09:18:05 Interface, Radiology Results 12/05/2020 9:21 AM CDT EXAMINATION: XR SHOULDER 2 VW LEFTCLINICAL HISTORY: Fracture shoulderCOMPARISON: None.IMPRESSION:Multiple views reveal no acute fracture or dislocation. Cortical irregularity noted of the humeral head suggestive of sequelae of prior trauma. Left-sided multi lead pacemaker in place. Remainder of the examination is unremarkable.[facility]-[id number] [facility]Christian [facility] drugs of abuse [id number] 12:44:04 Test Item Value Reference Interpretation Comments Range Amphetamine screen, Negative urine (test code = 3349-8) Barbiturate screen, Negative urine (test code = 3377-9) Benzodiazepine Positive A screen, urine (test code = 3390-2) Cocaine screen, Negative urine (test code = 3397-7) Methadone Negative metabolite (EDDP), urine (test code = 65965-9) Opiates screen, Negative urine (test code = 3879-4) Oxycodone screen, Negative urine (test code = 62426-1) Phencyclidine Negative screen, urine (test code = 3936-2) Tricyclic screen, Negative urine (test code = 20154-4) Cannabinoid screen, Negative Drug scr een minimum urine (test code = concentra tion of 3427-2) detectabilityAm phetamines 1000 ng/mLBarbiturat es 200 ng/mLBe nzodiazepines 300 ng/mLCocaine 300 ng/mLMethadone 300 ng/mLOp iates 300 ng/mLOxycodone 300 ng/mLPh encyclidine 25 ng/mLCannabinoi ds 50 ng/mLTr icyclics 1000 ng/mLResults are from screen ing tests and should only be used for medical evaluat ion. Drug testing for leg al purposes requires defini tive (or confirmatory) t esting methods, which are available upon request. C ontact the laboratory if d efinitive testing is requ ired. Lab Interpretation Abnormal (test code = 82218-0) Brodie DavisJIM TAL[facility] 12 [id number] 09:09:10 Test Item Value Reference Range Interpretation Comments Ventricular rate (test 71 code = 253) Atrial rate (test code 71 = 255) GA interval (test code 118 = 266) QRSD interval (test 182 code = 260) QT interval (test code 520 = 264) QTC interval (test code 565 = 265) P axis 1 (test code = 70 267) QRS axis 1 (test code = 130 268) T wave axis (test code -24 = 270) EKG impression (test Atrial-sensed code = 273) ventricular-paced rhythm-Biventricular pacemaker detected-Abnormal ECG-In automated comparison with ECG of 30-JUN-2020 06:40,-premature ventricular complexes are no longer present-Vent. rate has decreased BY 23 BPM- [place] [facility] Chest Wo [id number] 07:53:15Hm Interface, Radiology Results Incoming - 12/04/2020 7:56 AM CDTFormatting of this note might be di fferent from the original.CT CHEST WO CONTRASTCLINICAL INDICATION: chest wall pain around pacemakerTECHNIQUE: Multidetector CT imaging of the chest was performed without intravenous contrast with multiplanar reconstructions. CT imaging was performed with iterative reconstruction technique and/or automated exposure control to reduce radiation dose.COMPARISON: None FINDINGS:LUNGS AND AIRWAYS: There is mild bibasilar atelectasis. There is mild, smooth septal thickening within both lungs. The centralairways are patent.PLEURA: No pleural effusion or pneumothorax. MEDIASTINUM AND LYMPH NODES: No mediastinal mass or hematoma. No pathological adenopathy in the patricia, axilla or mediastinum.CARDIOVASCULAR: There is moderate cardiomegaly. There is no pericardial effusion. The thoracic aorta is normalin caliber. The main pulmonary artery is dilated, suggestive of pulmonary hypertension.MUSCULOSKELETAL: There is no acute osseous abnormality. There is a left chest wall AICD. There are bilateral breast implants. There is a chronic, healed left humeral neck fracture.UPPER ABDOMEN: No acute intra-abdominal abnormality is identified.IMPRESSION:1. Mild interstitial edema of both lungs.2. Left chest wall AICD without imaging findings to explain the reported chest wall pain.[facility]-[id number] MethodistXR Chest 1 Vw [id number] 05:11:01Hm Interface, Radiology Results Incoming - 12/04/2020 5:14 AM CDT EXAMINATION: XR CHEST 1 VW PORTABLECLINICAL HISTORY: chest painCOMPARISON: 06/29/2020.IMPRESSION:Left AICD with stable leads.Mild pulmonary vascular congestion. No focal consolidation.No pleural effusion or pneumothorax. Cardiac silhouette is enlarged.Diffuse osteopenia. No acute osseous abnormalities.[facility]-[id number] MethodistECG ED Preliminary Interpretation - Not an [id number] 03:42:29 Test Item Value Reference Range Interpretation Comments FLY (test code = FLY) Jermaine Benson DO 12/04/2020 6:22 AMECG ED Preliminary Interpretation - Not an OrderPerformed by: Jermaine Benson DOAuthorized by: Jermaine Benson DO ECG reviewed by ED Physician in the absence of a accounts payable supervisor: yes Previous ECG: Previous ECG: Compared to current Comparison ECG info: 06/30/2020 Similarity: No changeInterpretation: Interpretation: abnormal Rate: ECG rate: 71 ECG rate assessment: normal Rhythm: Rhythm: paced Pacing: Capture: Complete Type of pacing: AVQRS: QRS axis: Normal QRS intervals: WideConduction: Conduction: normal Lab Interpretation Abnormal (test code = 67344-3) [place] MethodistTransthoracic Echocardiogram Complete, (w Contrast, Strain and 3D if needed)2020-06-30 12:11:09 Test Item Value Reference Range Interpretation Comments Ao Root Diameter (test 2.78 cm code = 2721467967) AoV Area, Vmax (test 2.08 cm2 code = 1199941795) AoV Area, VTI (test 1.89 cm2 code = 0913231598) AoV Mean PG (test code 1.98 mmHg = 5506711839) AoV Peak PG (test code 3.65 mmHg = 2238283662) AoV Vmax (test code = 0.99 m/s 5594565783) AoV VTI (test code = 0.14 m 5969979774) IVS,d (test code = 0.87 cm 0480401715) IVS/LVPW,2D (test code 0.80 = 5024007954) Left Atrium Dimension 3.16 cm Anterior (test code = 6963083159) LA Area d A4C (test 22.18 cm2 code = 2139465910) LV,d (test code = 6.34 cm 8411762659) LV EF,2D (test code = -4.59 % 1754692735) LV,s (test code = 6.44 cm 2527977233) LVOT area (test code = 4.05 cm2 5469346901) LVOT Diam,S (test code 2.27 cm = 7116016517) LVOT Vmax (test code = 0.49 m/s 2399601729) LVOT VTI (test code = 0.06 m 4652801850) LVPWD,d (test code = 1.09 cm 4832075952) PV Mean Grad (test 1.31 mmHg code = 0331231984) PV Pk Grad (test code 2.19 mmHg = 4299290312) PV VMAX (test code = 0.72 m/s 4993716904) PV VTI (test code = 0.12 m 4029538238) RVOT Vmax (test code = 0.28 m/s 6164917244) TR Vpeak (test code = 3.14 mm/s 4429676186) TR pk grad (test code 35.04 mmHg = 4411238469) PV Vmn (test code = 0.55 5492355019) AV LVOT peak gradient 0.97 mmHg (test code = 6985793661) Ascending aorta (test 2.77 cm code = 7044815481) Ao Root Diameter (test 2.78 cm code = 7629145823) LV SYS VOL (test code 211.52 ml = 7469403515) LV HERNANDEZ VOL (test code 204.44 ml = 9268539373) LV SV Teich 2D (test -7.07 ml code = 2974455316) LV Vol s Teich PSAX 211.52 ml (test code = 2720538811) LVOT CO (test code = 2.40 l/min 5156270377) LVOT HR for LVOT CO 92.60 bpm (test code = 4517739084) RVOT pk grad (test 0.32 mmHg code = 2897095874) AoV Vmn (test code = 0.65 9457218907) IVS s 2D (test code = 0.56 9455746843) LV FS Teich 2D (test -1.51 code = 1846959592) LV FS Cube 2D (test -1.51 code = 6621765944) LVOT Vmn (test code = 0.33 3253461749) Aov area Vmn (test 2.02 cm2 code = 8368815296) LA Vol d MOD A4C (test 62.11 ml code = 1426742583) LVOT mean grad (test 0.50 mmHg code = 0851845360) MAX Pred HR (test code 159.25 = 4474673727) RVOT mean grad (test 0.16 mmHg code = 2259451898) RVOT Vmn (test code = 0.19 m/s 5936206793) RVOT VTI (test code = 0.04 m 9298781958) 85 of MPHR (test code 135.36 = 1217389291) Calc MPHR (test code = 159.25 bpm 3185914191) IVS pct thck PLAX -35.97 % (test code = 7966200272) LV SV Cube 2D (test -11.73 ml code = 3060622416) LV vol d cube 2D (test 255.40 ml code = 0055616244) LV vol s cube 2D (test 267.13 ml code = 5106832530) LVPW pct thck PLAX 16.02 % (test code = 2820419753) LVPW s PLAX (test code 1.27 cm = 2493229280) Pred Exer Dur R1 (test 7.82 code = 3405132647) Pred METS R1 (test 6.80 code = 5912890486) Velocity Ratio (V1/V2) 0.49 m/s (test code = 4689) EF (test code = -3.46 % 6436564862) RA pressure (test code 10.00 mmHg = 9014290632) RVSP (test code = 45.00 mmHg 9535210618) FLY (test code = FLY) Left Ventricular ejection fraction is <20%. Left ventricular systolic function is severely impaired. Global right ventricle systolic function is moderately reduced. Left atrium size is mildly dilated. There is moderate mitral valve regurgitation. Moderate tricuspid valve regurgitation. The left ventricle chamber size is severely enlarged. Brodie DavisID Lung Perfusion [id number] 08:33:42Hm Interface, Radiology Results Incoming - 06/30/2020 8:36 AM CST PROCEDURE: ID LUNG PERFUSION IMAGINGINDICATION: elevated troponin rule out [...] are noted.IMPRESSION:Low probability of acute pulmonary embol ism.[facility]-[id number] Shinto
[2020-12-25 04:32] LABS: Absolute Lymphocytes (CBC) 0.7 K/uL (0.7-4.9); Basophils % 0.3 % (0-1.3); Hematocrit 39.2 % (36.0-45.0); Lymphocytes % 15.3 % (15.3-44.8); MPV 8.7 fL (7.6-11.3); RBC Red Blood Cell Count 4.08 M/uL (3.86-4.86)
[2020-12-25 04:39] LABS: Protime INR 1.12
[2020-12-25 04:51] LABS: Albumin 3.8 g/dL (3.4-5.0); Bilirubin Direct 0.3 mg/dL (0-0.2); Bilirubin Total 0.8 mg/dL (0.2-1.0); Magnesium 2.8 mg/dL (1.8-2.4); Potassium 3.7 mmol/L (3.5-5.1); Protein, Total 7.7 g/dL (6.4-8.2); Troponin (Emerg Dept Use Only) 0.02 ng/mL (0.0-0.045)
--- NOTE | 2020-12-25 05:42 | ER ---
Nurse's Notes [facility] Name: Lise Loera Age: 60 yrs Sex: Female : 1960 Arrival Date: 12/25/2020 Time: 03:27 Bed 7 Private MD: Diagnosis: Acute on chronic combined systolic (congestive) and diastolic (congestive) heart failure Presentation: 12/25 04:11 Chief complaint: Patient states: Reports she was sitting on the couch and started ea feeling short of breath. Coronavirus screen: At this time, the client does not indicate any symptoms associated with coronavirus-19. Ebola Screen: No symptoms or risks identified at this time. Initial Sepsis Screen: Does the patient meet any 2 criteria? No. Patient's initial sepsis screen is negative. Does the patient have a suspected source of infection? No. Patient's initial sepsis screen is negative. Risk Assessment: Do you want to hurt yourself or someone else? Patient reports no desire to harm self or others. Onset of symptoms was December 25, 2020. 04:11 Acuity: ESTRELLITA 3 ea 04:11 Method Of Arrival: Wheelchair ea Triage Assessment: 04:12 General: Appears in no apparent distress. Behavior is restless. Pain: Denies pain. ea Neuro: Level of Consciousness is awake, alert, obeys commands, Oriented to person, place, time. Cardiovascular: Patient's skin is warm and dry. Respiratory: Airway is patent Respiratory effort is even, unlabored, Respiratory pattern is regular, symmetrical. Derm: Skin is pink, warm \\T\\ dry. Historical: - Allergies: 04:11 Codeine; ea 04:11 Eliquis; ea 04:11 PENICILLINS; ea 04:11 Tylenol; ea - Home Meds: 04:11 Xanax 2 mg Oral tab 1 tab 3 times per day [Active]; potassium chloride 10 mEq Oral cpER ea 1 cap once daily [Active]; Lasix 20 mg Oral tab 60 mg in am, 40 mg in pm [Active]; Entresto 49-51 mg Oral tab [Active]; Aspirin EC Oral [Active]; amiodarone 100 mg Oral tab 1 tab 2 times per day [Active]; - PMHx: 04:11 Pacemaker; Myocardial infarction; Hypertension; Cancer, Breast; CHF; cancer - skin; ea CAD; Atrial Fib; Anxiety; ADD/ADHD; - PSHx: 04:11 Hysterectomy; lymph node removed right breast; ; Cholecystectomy; ea - Immunization history:: Adult Immunizations up to date. - Social history:: Smoking status: Patient denies any tobacco usage or history of. Screenin:08 Abuse screen: Denies threats or abuse. Nutritional screening: No deficits noted. ea Tuberculosis screening: No symptoms or risk factors identified. Fall Risk None identified. Assessment: 04:30 General: Appears in no apparent distress. Behavior is anxious. Pain: Complains of pain ea in right leg and left leg. Neuro: Level of Consciousness is awake, alert, obeys commands, Oriented to person, place, time. Cardiovascular: Patient's skin is warm and dry. Respiratory: Airway is patent Respiratory effort is even, unlabored, Respiratory pattern is regular, symmetrical. Derm: Skin is pink, warm \\T\\ dry. 05:42 Reassessment: Patient and/or family updated on plan of care and expected duration. Pain ea level reassessed. Patient is alert, oriented x 3, equal unlabored respirations, skin warm/dry/pink. Pt states " It's a holiday weekend and I am not going to stay". Pt verbalized the understanding of signing AMA. Vital Signs: 04:08 BP 91 / 74; Pulse 76; Resp 18; Temp 97.2; Pulse Ox 95% on R/A; Weight 50.8 kg; Height 5 ea ft. 2 in. (157.48 cm); 05:06 BP 89 / 62; Pulse 66; Resp 19; Pulse Ox 95% ; ea 04:08 Body Mass Index 20.48 (50.80 kg, 157.48 cm) ea ED Course: 03:27 Patient arrived in ED. cf2 03:37 Jaret Donahue MD is Attending Physician. 7 04:08 Patient maintains SpO2 saturation greater than 95% on room air. ea 04:09 Patient has correct armband on for positive identification. Bed in low position. Call ea light in reach. panel monitor on. Pulse ox on. NIBP on. 04:11 XRAY Chest (1 view) In Process Unspecified. EDMS 04:12 Triage completed. ea 04:12 Arm band placed on right wrist. Patient placed in an exam room, on a stretcher, on ea panel monitor, on pulse oximetry. 04:13 Renetta Nina, RN is Primary Nurse. ea 04:25 Initial lab(s) drawn, by me, sent to lab. Inserted saline lock: 22 gauge in right bb antecubital area, using aseptic technique. Blood collected. 05:42 No provider procedures requiring assistance completed. IV discontinued, intact, ea bleeding controlled, No redness/swelling at site. Pressure dressing applied. Administered Medications: No medications were administered Outcome: 05:43 AMA AMA form signed ea 05:43 Condition: stable 05:43 Instructed on the need for admit, Demonstrated understanding of instructions. 05:43 Patient left the ED. ea Signatures: Dispatcher [employer] Katy Torres RN RN bb Antunez, Elena, DAMASO RN Nhung Diaz cf2 Jaret Donahue MD MD mh7
--- NOTE | 2020-12-25 05:42 | EDPHYS ---
Physician Documentation [facility] Name: Lise Loera Age: 60 yrs Sex: Female : 1960 Arrival Date: 12/25/2020 Time: 03:27 Bed 7 Private MD: ED Physician Jaret Donahue HPI: 12/25 04:13 This 60 yrs old Female presents to ER via Wheelchair with complaints of Chest mh7 Pain, Shortness Of Breath, Leg Pain. 04:13 The patient has shortness of breath at rest. mh7 04:13 Onset: The symptoms/episode began/occurred last night. Duration: The symptoms are mh7 intermittent, with no pattern. The patient's shortness of breath is aggravated by supine position, is alleviated by nothing. Associated signs and symptoms: Pertinent negatives: chest pain, non-productive cough, productive cough, diaphoresis, dizziness, fever, hemoptysis, loss of consciousness, nausea, numbness in extremities, visual changes, vomiting. Severity of symptoms: At their worst the symptoms were moderate last night, in the emergency department the symptoms are unchanged. Historical: - Allergies: 04:11 Codeine; ea 04:11 Eliquis; ea 04:11 PENICILLINS; ea 04:11 Tylenol; ea - Home Meds: 04:11 Xanax 2 mg Oral tab 1 tab 3 times per day [Active]; potassium chloride 10 mEq Oral cpER ea 1 cap once daily [Active]; Lasix 20 mg Oral tab 60 mg in am, 40 mg in pm [Active]; Entresto 49-51 mg Oral tab [Active]; Aspirin EC Oral [Active]; amiodarone 100 mg Oral tab 1 tab 2 times per day [Active]; - PMHx: 04:11 Pacemaker; Myocardial infarction; Hypertension; Cancer, Breast; CHF; cancer - skin; ea CAD; Atrial Fib; Anxiety; ADD/ADHD; - PSHx: 04:11 Hysterectomy; lymph node removed right breast; ; Cholecystectomy; ea - Immunization history:: Adult Immunizations up to date. - Social history:: Smoking status: Patient denies any tobacco usage or history of. ROS: 04:13 Constitutional: Negative for fever, chills, and weight loss, Eyes: Negative for injury, mh7 pain, redness, and discharge, ENT: Negative for injury, pain, and discharge, Neck: Negative for injury, pain, and swelling, Abdomen/GI: Negative for abdominal pain, nausea, vomiting, diarrhea, and constipation, Back: Negative for injury and pain, : Negative for injury, bleeding, discharge, and swelling, MS/Extremity: Negative for injury and deformity, Skin: Negative for injury, rash, and discoloration, Neuro: Negative for headache, weakness, numbness, tingling, and seizure, Psych: Negative for depression, anxiety, suicide ideation, homicidal ideation, and hallucinations, Allergy/Immunology: Negative for hives, rash, and allergies, Endocrine: Negative for neck swelling, polydipsia, polyuria, polyphagia, and marked weight changes, Hematologic/Lymphatic: Negative for swollen nodes, abnormal bleeding, and unusual bruising. Exam: 04:13 Head/Face: Normocephalic, atraumatic. Eyes: Pupils equal round and reactive to light, mh7 extra-ocular motions intact. Lids and lashes normal. Conjunctiva and sclera are non-icteric and not injected. Cornea within normal limits. Periorbital areas with no swelling, redness, or edema. Neck: Trachea midline, no thyromegaly or masses palpated, and no cervical lymphadenopathy. Supple, full range of motion without nuchal rigidity, or vertebral point tenderness. No Meningismus. Chest/axilla: Normal chest wall appearance and motion. Nontender with no deformity. No lesions are appreciated. Cardiovascular: Regular rate and rhythm with a normal S1 and S2. No gallops, murmurs, or rubs. Normal PMI, no JVD. No pulse deficits. Respiratory: Lungs have equal breath sounds bilaterally, clear to auscultation and percussion. No rales, rhonchi or wheezes noted. No increased work of breathing, no retractions or nasal flaring. Abdomen/GI: Soft, non-tender, with normal bowel sounds. No distension or tympany. No guarding or rebound. No evidence of tenderness throughout. Back: No spinal tenderness. No costovertebral tenderness. Full range of motion. Skin: Warm, dry with normal turgor. Normal color with no rashes, no lesions, and no evidence of cellulitis. MS/ Extremity: Pulses equal, no cyanosis. Neurovascular intact. Full, normal range of motion. Neuro: Awake and alert, GCS 15, oriented to person, place, time, and situation. Cranial nerves II-XII grossly intact. Motor strength 5/5 in all extremities. Sensory grossly intact. Cerebellar exam normal. Normal gait. 04:13 Constitutional: The patient appears in no acute distress, alert, awake, anxious. 04:13 Psych: Behavior/mood is anxious, Affect is animated, Oriented to person, place, time, Patient has no thoughts/intents to harm self or others. Judgement / Insight is normal. Memory is normal. Delusions/hallucinations are not present. Vital Signs: 04:08 BP 91 / 74; Pulse 76; Resp 18; Temp 97.2; Pulse Ox 95% on R/A; Weight 50.8 kg; Height 5 ea ft. 2 in. (157.48 cm); 05:06 BP 89 / 62; Pulse 66; Resp 19; Pulse Ox 95% ; ea 04:08 Body Mass Index 20.48 (50.80 kg, 157.48 cm) ea MDM: 05:38 Differential diagnosis: Anemia Anxiety Reaction asthma, Bronchitis CHF exacerbation, 7 Chronic Obstructive Pulmonary Disease Myocardial Infarction pneumonia, Pneumothorax Psychogenic pulmonary edema, Pulmonary Embolism reactive airway disease. Data reviewed: vital signs, nurses notes, old medical records, lab test result(s), cardiac enzymes, CBC, electrolytes, EKG, radiologic studies, plain films. Data interpreted: Pulse oximetry: on room air is 95 %. Interpretation: normal. Counseling: I had a detailed discussion with the patient and/or guardian regarding: the historical points, exam findings, and any diagnostic results supporting the discharge/admit diagnosis, lab results, radiology results, the need for further work-up and treatment in the hospital. Response to treatment: the patient's symptoms have mildly improved after treatment. Refusal of service: The patient/guardian displays adequate decision making capability and despite a detailed discussion of alternatives, benefits, risks, and consequences refuses: Admission to the hospital for further work-up and treatment, Medications. 05:41 Patient medically screened. [facility] 12/25 03:49 Order name: Basic Metabolic Panel; Complete Time: 05:11 [facility] 12/25 03:49 Order name: CBC with Diff; Complete Time: 04:37 [facility] 12/25 03:49 Order name: LFT's; Complete Time: 05:11 [facility] 12/25 03:49 Order name: Magnesium; Complete Time: 05:11 [facility] 12/25 03:49 Order name: NT PRO-BNP; Complete Time: 05:11 12/25 03:49 Order name: PT-INR; Complete Time: 05:11 [facility] 12/25 03:49 Order name: Troponin (emerg Dept Use Only); Complete Time: 05:11 12/25 03:49 Order name: XRAY Chest (1 view) [facility] 12/25 03:49 Order name: EKG; Complete Time: 03:50 12/25 03:49 Order name: Cardiac monitoring; Complete Time: 04:14 12/25 03:49 Order name: EKG - Nurse/Tech; Complete Time: 04: [facility] 12/25 03:49 Order name: IV Saline Lock; Complete Time: 04:25 12/25 03:50 Order name: ETOH Level; Complete Time: 05:11 [facility] 12/25 03:49 Order name: Labs collected and sent; Complete Time: 04: [facility] 12/25 03:49 Order name: O2 Per Protocol; Complete Time: 04: 12/25 03:49 Order name: O2 Sat Monitoring; Complete Time: 04: [facility] Administered Medications: No medications were administered Disposition: 12/25/20 05:41 Patient has left against medical advice. Impression: Acute on chronic combined systolic (congestive) and diastolic (congestive) heart failure. - Patients states they are going to Home. - Condition is Stable. - Discharge Instructions: Heart Failure, [id number]. Follow up: Private Physician; When: 1 - 2 days; Reason: Worsening of condition, Recheck today's complaints, Continuance of care, Re-evaluation by your physician. - Problem is an acute exacerbation. - Symptoms have improved. Signatures: Dispatcher [employer] EDRenetta Diaz RN RN ea Holmes, Maurice, MD MD 7 Corrections: (The following items were deleted from the chart) 05:43 05:41 12/25/2020 05:41 Patients has left against medical advice. Impression: Acute on ea chronic combined systolic (congestive) and diastolic (congestive) heart failure. Patient states they are going to Home. Condition is Stable. Follow up: Private Physician; When: 1 - 2 days; Reason: Worsening of condition, Recheck today's complaints, Continuance of care, Re-evaluation by your physician. Problem is an acute exacerbation. Symptoms have improved. mh7
[2020-12-25 05:50] VITALS: TEMP 97.2; O2SAT 95
[2020-12-25 05:51] VITALS: BP 89/62
--- NOTE | 2020-12-25 09:39 | RAD REPORT ---
EXAM DESCRIPTION: RAD - Chest Single View - 12/25/2020 4:12 am CLINICAL HISTORY: SOB Chest pain. COMPARISON: Chest Single View dated 12/10/2020; Chest Pa And Lat (2 Views) dated 11/27/2020; Chest Sin gle View dated 03/17/2019; Chest Pa And Lat (2 Views) dated 03/11/2019 FINDINGS: Portable technique limits examination quality. Mild interstitial pulmonary edema. The heart is enlarged in size with multilead pacer/defibrillator d evice. No displaced fractures. IMPRESSION: Mild CHF.
--- NOTE | 2020-12-26 12:14 | EKG ---
Test Date: 2020-12-25 Test Time: 03:48:40 Refiner Operator: RICKEY MEASUREMENT RESULTS: Intervals: Rate: 68 GA: 158 QRSD: 188 QT: 536 QTc: 569 [place]: P: 43 GA: 158 QRS: 132 T: 56 INTERPRETIVE STATEMENTS: Atrial-sensed ventricular-paced rhythm with occasional AV dual-paced complexes Abnormal ECG Compared to ECG 12/10/2020 04:07:51 No significant changes Electronically Signed On 12-26-20 12:12:06 CDT by Juma Dickey
== END 2020-12-25 05:43 | disposition left against medical advice (07) ==
LOC: ER 03:21
DX: I11.0 Hypertensive heart disease with heart failure (principal); I50.43 Acute on chronic combined systolic (congestive) and diastolic (congestive) heart failure; Z53.20 Procedure and treatment not carried out because of patient's decision for unspecified reasons; Z85.3 Personal history of malignant neoplasm of breast; Z85.828 Personal history of other malignant neoplasm of skin; Z95.0 Presence of cardiac pacemaker; I25.2 Old myocardial infarction; I48.91 Unspecified atrial fibrillation; F41.9 Anxiety disorder, unspecified; I25.10 Atherosclerotic heart disease of native coronary artery without angina pectoris; F90.9 Attention-deficit hyperactivity disorder, unspecified type
CPT/HCPCS: 36415; 71045; 80048; 80076; 80320; 83735; 83880; 84484; 85025; 85610; 93005; 99285

== ENCOUNTER 2021-06-28 11:37 | Emergency (ER) | payer OTHER ==
[2021-06-28 14:08] LABS: Absolute Lymphocytes (CBC) 0.9 K/uL (0.7-4.9); Basophils % 1.2 % (0-1.3); Hematocrit 37.5 % (36.0-45.0); Lymphocytes % 14.4 % (15.3-44.8); MPV 9.2 fL (7.6-11.3); RBC Red Blood Cell Count 3.89 M/uL (3.86-4.86)
[2021-06-28 14:17] LABS: Potassium 3.9 mmol/L (3.5-5.1)
[2021-06-28] MEDS ORDERED: FUROSEMIDE 20 MG/ 2ML VIAL ONE (14:30)
--- NOTE | 2021-06-28 14:32 | EDPHYS ---
Physician Documentation [facility] Name: Lise Loera Age: 60 yrs Sex: Female : 1960 Arrival Date: 06/28/2021 Time: 11:39 Bed 4 Private MD: ED Physician Leo Ramirez HPI: 06/28 13:32 This 60 yrs old Female presents to ER via Ambulatory with complaints of Hand pkl Swelling. 13:32 The patient or guardian reports swelling. The complaints affect the fingers both hands. pkl Onset: The symptoms/episode began/occurred today. Historical: - Allergies: 11:52 Codeine; aa5 11:52 Eliquis; aa5 11:52 PENICILLINS; aa5 11:52 Tylenol; aa5 - PMHx: 11:52 ADD/ADHD; Anxiety; Atrial Fib; CAD; cancer - skin; Cancer, Breast; CHF; Hypertension; aa5 Myocardial infarction; Pacemaker; - Immunization history:: Client reports having NOT received the Covid vaccine. - Social history:: Smoking status: Patient denies any tobacco usage or history of. ROS: 13:32 Eyes: Negative for injury, pain, redness, and discharge, ENT: Negative for injury, pkl pain, and discharge, Neck: Negative for injury, pain, and swelling, Cardiovascular: Negative for chest pain, palpitations, and edema, Respiratory: Negative for shortness of breath, cough, wheezing, and pleuritic chest pain, Abdomen/GI: Negative for abdominal pain, nausea, vomiting, diarrhea, and constipation, Back: Negative for injury and pain, : Negative for injury, bleeding, discharge, and swelling. 13:32 MS/extremity: Positive for swelling, of the fingers both hands. 13:32 Skin: Negative for rash. 13:32 Neuro: Negative for altered mental status, loss of consciousness. Exam: 13:35 Head/Face: Normocephalic, atraumatic. Eyes: Pupils equal round and reactive to light, pkl extra-ocular motions intact. Lids and lashes normal. Conjunctiva and sclera are non-icteric and not injected. Cornea within normal limits. Periorbital areas with no swelling, redness, or edema. ENT: Nares patent. No nasal discharge, no septal abnormalities noted. Tympanic membranes are normal and external auditory canals are clear. Oropharynx with no redness, swelling, or masses, exudates, or evidence of obstruction, uvula midline. Mucous membranes moist. Neck: Trachea midline, no thyromegaly or masses palpated, and no cervical lymphadenopathy. Supple, full range of motion without nuchal rigidity, or vertebral point tenderness. No Meningismus. Chest/axilla: Normal chest wall appearance and motion. Nontender with no deformity. No lesions are appreciated. Cardiovascular: Regular rate and rhythm with a normal S1 and S2. No gallops, murmurs, or rubs. Normal PMI, no JVD. No pulse deficits. Respiratory: Lungs have equal breath sounds bilaterally, clear to auscultation and percussion. No rales, rhonchi or wheezes noted. No increased work of breathing, no retractions or nasal flaring. Abdomen/GI: Soft, non-tender, with normal bowel sounds. No distension or tympany. No guarding or rebound. No evidence of tenderness throughout. Back: No spinal tenderness. No costovertebral tenderness. Full range of motion. Skin: Warm, dry with normal turgor. Normal color with no rashes, no lesions, and no evidence of cellulitis. 13:35 Musculoskeletal/extremity: Extremities: grossly normal except: noted in the both hands: swelling. 13:35 Skin: Exam negative for rash. 13:35 Neuro: Orientation: is normal, Mentation: is normal, Cranial nerves: grossly normal, Motor: is normal. Vital Signs: 11:52 BP 110 / 74; Pulse 74; Resp 16 S; Temp 98.2(TE); Pulse Ox 97% on R/A; Weight 53.98 kg aa5 (R); Height 5 ft. 2 in. (157.48 cm) (R); 14:45 BP 112 / 81; Pulse 77; Resp 20; Pulse Ox 100% ; ll1 11:52 Body Mass Index 21.77 (53.98 kg, 157.48 cm) aa5 MDM: 12:59 Patient medically screened. pk 14:30 Data reviewed: vital signs, nurses notes. [facility] 06/28 13:17 Order name: CBC with Diff; Complete Time: 14:29 pkl 06/28 13:17 Order name: Chem 7; Complete Time: 14:29 pk 06/28 13:17 Order name: Saline Lock; Complete Time: 13:17 pkl 06/28 13:17 Order name: EKG; Complete Time: 13:18 pkl Administered Medications: 14:36 Drug: Lasix (furosemide) 20 mg Route: IVP; Site: right wrist; ll1 14:48 Follow up: Response: No adverse reaction ll1 Disposition Summary: 06/28/21 14:31 Discharge Ordered Location: Home pkl Problem: new pkl Symptoms: are unchanged pkl Condition: Stable pkl Diagnosis - Swelling fingers both hands. 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
--- NOTE | 2021-06-28 14:32 | ER ---
Nurse's Notes [facility] Name: Lise Loera Age: 60 yrs Sex: Female : 1960 Arrival Date: 06/28/2021 Time: 11:39 Bed 4 Private MD: Diagnosis: Swelling fingers both hands. Chronic renal disease Presentation: 06/28 11:52 Onset of symptoms was June 28, 2021. aa5 11:52 Chief complaint: Patient states: "I know I am retaining fluid and my fingers are aa5 swelling up, I need some Lasix". No swelling noted to lower extremities. 11:52 Coronavirus screen: At this time, the client does not indicate any symptoms associated aa5 with coronavirus-19. Ebola Screen: No symptoms or risks identified at this time. Initial Sepsis Screen: Does the patient meet any 2 criteria? No. Patient's initial sepsis screen is negative. Does the patient have a suspected source of infection? No. Patient's initial sepsis screen is negative. Risk Assessment: Do you want to hurt yourself or someone else? Patient reports no desire to harm self or others. 11:52 Acuity: ESTRELLITA 3 aa5 11:52 Method Of Arrival: Ambulatory aa5 Triage Assessment: 14:01 General: Appears in no apparent distress. Behavior is calm, cooperative. Pain: ll1 Complains of pain in right hand and left hand Pain Quality of pain is described as tightness. Historical: - Allergies: 11:52 Codeine; aa5 11:52 Eliquis; aa5 11:52 PENICILLINS; aa5 11:52 Tylenol; aa5 - PMHx: 11:52 ADD/ADHD; Anxiety; Atrial Fib; CAD; cancer - skin; Cancer, Breast; CHF; Hypertension; aa5 Myocardial infarction; Pacemaker; - Immunization history:: Client reports having NOT received the Covid vaccine. - Social history:: Smoking status: Patient denies any tobacco usage or history of. Screenin:59 Fall Risk None identified. ll1 13:59 Abuse screen: Denies threats or abuse. Nutritional screening: No deficits noted. ll1 Tuberculosis screening: No symptoms or risk factors identified. Assessment: 14:48 Reassessment: No changes from previously documented assessment. Patient and/or family ll1 updated on plan of care and expected duration. Pain level reassessed. Vital Signs: 11:52 BP 110 / 74; Pulse 74; Resp 16 S; Temp 98.2(TE); Pulse Ox 97% on R/A; Weight 53.98 kg aa5 (R); Height 5 ft. 2 in. (157.48 cm) (R); 14:45 BP 112 / 81; Pulse 77; Resp 20; Pulse Ox 100% ; ll1 11:52 Body Mass Index 21.77 (53.98 kg, 157.48 cm) aa5 ED Course: 11:39 Patient arrived in ED. as 11:52 Arm band placed on. aa5 11:55 Triage completed. aa5 12:59 Leo Ramirez MD is Attending Physician. pkl 13:02 Tushar Luis, DAMASO is Primary Nurse. ll1 13:58 Inserted saline lock: 22 gauge in right hand, using aseptic technique. Blood collected. ll1 14:00 Patient has correct armband on for positive identification. Fall risk band placed. ll1 Placed in gown. Bed in low position. Call light in reach. Side rails up X 1. campus monitor on. Pulse ox on. NIBP on. Lights dimmed. 14:30 Leo Ramirez MD is Referral Physician. pkl 14:48 No provider procedures requiring assistance completed. IV discontinued, intact, ll1 bleeding controlled, No redness/swelling at site. Pressure dressing applied. Administered Medications: 14:36 Drug: Lasix (furosemide) 20 mg Route: IVP; Site: right wrist; ll1 14:48 Follow up: Response: No adverse reaction ll1 Outcome: 14:31 Discharge ordered by . pkl 14:46 Discharged to home ambulatory. ll1 14:46 Condition: stable 14:46 Discharge instructions given to patient, Instructed on discharge instructions, follow up and referral plans. Demonstrated understanding of instructions, follow-up care. 14:52 Patient left the ED. ll1 Signatures: Leo Ramirez MD MD pkl Martinez, Amelia as Calderon, Audri, RN RN aa5 Tushar Luis, DAMASO RN ll1 Corrections: (The following items were deleted from the chart) 13:59 13:58 Inserted saline lock: 22 gauge in right hand, using aseptic technique. ll1 ll1
[2021-06-28 16:38] VITALS: TEMP 98.2
[2021-06-28 16:39] VITALS: BP 112/81; O2SAT 100
--- NOTE | 2021-06-29 11:21 | EKG ---
Test Date: 2021-06-28 Test Time: 13:24:09 Drywaller: ANAHY MEASUREMENT RESULTS: Intervals: Rate: 65 [place]: 120 QRSD: 182 QT: 524 QTc: 544 [place]: P: 68 [place]: 120 QRS: 263 T: 264 INTERPRETIVE STATEMENTS: Atrial-sensed ventricular-paced rhythm Abnormal ECG Compared to ECG 12/25/2020 03:49:29 No significant changes Electronically Signed On 06-29-21 11:20:19 LEGAL SPECIALIST by Juma Dickey
--- OUTSIDE RECORDS SUMMARY | 2021-07-02 18:13 | XMS REPORT | Continuity of Care Document ---
:1960 Author Organization [facility] t Address [address] [place] [address] Care Team Providers Name Role Phone Mirza NAVARRO Primary Care Physician MIRZA Attending Clinician Unavailable Mirza NAVARRO Attending Clinician Doctor Unassigned, Name Attending Clinician Unavailable VICTORIA Attending Clinician Unavailable YASIR Attending Clinician Unavailable MD YASIR Attending Clinician Unavailable French EMNP, R Attending Clinician Provider, Urgent Care Attending Clinician Unavailable Anene SPOOL SANDER Attending Clinician ANENE Attending Clinician Unavailable Lore HURLEYP, F Attending Clinician Hemalatha Ring RN Attending Clinician Unavailable Gerard NAVARRO L Attending Clinician Marcel GEE Attending Clinician Unavailable MABLE Attending Clinician Unavailable MD MABLE H. Attending Clinician Unavailable KATHIE KMarcoHMarco Attending Clinician Unavailable VICTORIA Admitting Clinician Unavailable YASIR Admitting Clinician Unavailable MD YASIR Admitting Clinician Unavailable MABLE Admitting Clinician Unavailable MD MABLE H. Admitting Clinician Unavailable Payers Payer Name Policy Type Policy Number Effective Date Expiration Date S mikki MEDICARE PART A [id number] 2010 \T\ B 00:00:00 Problems Condition Condition Condition Status Onset Resolution Last Treating Co mments Source Name Details Category Date Date Treatment Clinician Date Cardiac Cardiac Disease Active [facility] arrhythmia arrhythmia 5-25 it y of , , 00:00: [place] unspecifie unspecifie 00 Me dical d cardiac d cardiac Bran ch arrhythmia arrhythmia type type Malignant Malignant Disease Active 2006-08 Uni vers [...] Type Date Date Clinician Codeine Propensi Active Nausea Only 2006-08 Other Un jennifer ty to 0-08 reaction( ity of adverse 00:00: s): GI [place] reaction 00 Intoleran Medic al s ceVomitin Branch g Penicill Propensi Active Anaphylaxis 2006-08 Highly U nivers ins ty to 0-08 allergic ity of adverse 00:00: [place] reaction 00 Medical s Branch CODEINE DRUG Active Med NAUSEA ONLY 2006-08 Univ ers INGREDI 0-08 ity of 00:00: [place] 00 Medical Branch PENICILL Drug Active High Unknown-Cmnt 2006-08 Un jennifer INS Class 0-08 ity of 00:00: [place] 00 Medical Branch Social History Social Habit Start Date Stop Date Quantity Comments Source Exposure to Not sure [facility] SARS-CoV-2 (event) Medica l Branch Tobacco use and 2017-12-14 2017-12-14 Never used [facility] exposure 00:00:00 00:00:00 [facility] Branch Sex [birth year] [facility] 00:00:00 00:00:00 [facility] Smoking Status Start Date Stop Date Source Former smoker 2020-12-02 00:00:00 2020-12-02 00:00:00 [facility] Medications Ordered Filled Start Stop Current Ordering Indication Dosage Frequency Signature Comments Components Source Medication Medication Date Date Medication? Clinician (SIG) Name Name traMADoL 50 2020-08 Yes [id number] 50mg Take 1 Univ ers mg tablet 08-28 tablet by ity o f 00:00: mouth [place] 00 every 6 Medical (six) Branch hours as needed for Pain (scale 7-10). Indication s: acute pain traMADoL 50 1 Yes [id number] 50mg Take 1 Univ ers mg tablet 1-09 tablet by ity o f 00:00: mouth [place] 00 every 6 Medical (six) Branch hours as needed for Pain (scale 7-10). Indication s: acute pain ALPRAZolam 2020-0 Yes [id number] TAKE 1 U nivers 2 mg tablet 9-15 TABLET BY ity of 00:00: MOUTH [place] 00 THREE Medical TIMES Branch DAILY NEEDED ALPRAZolam 2020-0 Yes [id number] TAKE 1 U nivers 2 mg tablet 9-15 TABLET BY ity of 00:00: MOUTH [place] 00 THREE Medical TIMES Branch DAILY NEEDED ALPRAZolam 2020-0 Yes [id number] TAKE 1 U nivers 2 mg tablet 9-15 TABLET BY ity of 00:00: MOUTH [place] 00 THREE Medical TIMES Branch DAILY NEEDED ALPRAZolam 2020-0 Yes [id number] TAKE 1 U nivers 2 mg tablet 9-15 TABLET BY ity of 00:00: MOUTH [place] 00 THREE Medical TIMES Branch DAILY NEEDED ALPRAZolam 2020-0 Yes [id number] TAKE 1 U nivers 2 mg tablet 6-16 TABLET BY ity of 00:00: MOUTH [place] 00 THREE Medical TIMES Branch DAILY NEEDED ALPRAZolam 2020-0 Yes [id number] TAKE 1 U nivers 2 mg tablet 6-16 TABLET BY ity of 00:00: MOUTH [place] 00 THREE Medical TIMES Branch DAILY NEEDED ALPRAZolam 2020-0 2021- No [id number] TAKE 1 Univers 2 mg tablet 6-16 09-15 TABLET BY it y of 00:00: 00:00 MOUTH [place] 00 :00 THREE Medical TIMES Branch DAILY NEEDED ALPRAZolam 2020-0 202- No [id number] TAKE 1 Univers 2 mg tablet 6-16 09-15 TABLET BY it y of 00:00: 00:00 MOUTH [place] 00 :00 THREE Medical TIMES Branch DAILY NEEDED traMADoL 50 2020-0 Yes [id number] 50mg Take 1 Univ ers mg tablet 4-10 tablet by ity o f 00:00: mouth [place] 00 every 6 Medical (six) Branch hours as needed for Pain (scale 7-10). Indication s: acute pain traMADoL 50 2020-0 Yes [id number] 50mg Take 1 Univ ers mg tablet 4-10 tablet by ity o f 00:00: mouth [place] 00 every 6 Medical (six) Branch hours as needed for Pain (scale 7-10). Indication s: acute pain traMADoL 50 2020-0 Yes [id number] 50mg Take 1 Univ ers mg tablet 4-10 tablet by ity o f 00:00: mouth [place] 00 every 6 Medical (six) Branch hours as needed for Pain (scale 7-10). Indication s: acute pain traMADoL 50 2020-0 Yes [id number] 50mg Take 1 Univ ers mg tablet 4-10 tablet by ity o f 00:00: mouth [place] 00 every 6 Medical (six) Branch hours as needed for Pain (scale 7-10). Indication s: acute pain traMADoL 50 2020-0 Yes [id number] 50mg Take 1 Univ ers mg tablet 4-10 tablet by ity o f 00:00: mouth [place] 00 every 6 Medical (six) Branch hours as needed for Pain (scale 7-10). Indication s: acute pain traMADoL 50 2020-0 Yes [id number] 50mg Take 1 Univ ers mg tablet 4-10 tablet by ity o f 00:00: mouth [place] 00 every 6 Medical (six) Branch hours as needed for Pain (scale 7-10). Indication s: acute pain traMADoL 50 2020-0 Yes [id number] 50mg Take 1 Univ ers mg tablet 4-10 tablet by ity o f 00:00: mouth [place] 00 every 6 Medical (six) Branch hours as needed for Pain (scale 7-10). Indication s: acute pain traMADoL 50 2020-0 Yes [id number] 50mg Take 1 Univ ers mg tablet 4-10 tablet by ity o f 00:00: mouth [place] 00 every 6 Medical (six) Branch hours as needed for Pain (scale 7-10). Indication s: acute pain traMADoL 50 2020-0 Yes [id number] 50mg Take 1 Univ ers mg tablet 4-10 tablet by ity o f 00:00: mouth [place] 00 every 6 Medical (six) Branch hours as needed for Pain (scale 7-10). Indication s: acute pain traMADoL 50 2020-0 Yes [id number] 50mg Take 1 Univ ers mg tablet 4-10 tablet by ity o f 00:00: mouth [place] 00 every 6 Medical (six) Branch hours as needed for Pain (scale 7-10). Indication s: acute pain traMADoL 50 2020-0 Yes [id number] 50mg Take 1 Univ ers mg tablet 4-10 tablet by ity o f 00:00: mouth [place] 00 every 6 Medical (six) Branch hours as needed for Pain (scale 7-10). Indication s: acute pain traMADoL 50 2020-0 Yes [id number] 50mg Take 1 Univ ers mg tablet 4-10 tablet by ity o f 00:00: mouth [place] 00 every 6 Medical (six) Branch hours as needed for Pain (scale 7-10). Indication s: acute pain traMADoL 50 2020-0 Yes [id number] 50mg Take 1 Univ ers mg tablet 4-10 tablet by ity o f 00:00: mouth [place] 00 every 6 Medical (six) Branch hours as needed for Pain (scale 7-10). Indication s: acute pain traMADoL 50 2020-0 Yes [id number] 50mg Take 1 Univ ers mg tablet 4-10 tablet by ity o f 00:00: mouth [place] 00 every 6 Medical (six) Branch hours as needed for Pain (scale 7-10). Indication s: acute pain traMADoL 50 2020-0 Yes acute pain 50mg Take 1 Univers mg tablet 4-10 tablet by ity o f 00:00: mouth [place] 00 every 6 Medical (six) Branch hours as needed for Pain (scale 7-10). Indication s: acute pain traMADoL 50 2020-0 2020- No [id number] 50mg Take 1 Uni vers mg tablet 4-10 11-09 tablet by ity of 00:00: 00:00 mouth [place] 00 :00 every 6 Medical (six) Branch hours as needed for Pain (scale 7-10). Indication s: acute pain ALPRAZolam 2020-0 Yes [id number] TAKE 1 U nivers 2 mg tablet 1-13 TABLET BY ity of 00:00: MOUTH [place] 00 THREE Medical TIMES Branch DAILY NEEDED ALPRAZolam 0 Yes [id number] TAKE 1 U nivers 2 mg tablet 1-13 TABLET BY ity of 00:00: MOUTH [place] 00 THREE Medical TIMES Branch DAILY NEEDED ALPRAZolam 2020-0 Yes [id number] TAKE 1 U nivers 2 mg tablet 1-13 TABLET BY ity of 00:00: MOUTH [place] 00 THREE Medical TIMES Branch DAILY NEEDED ALPRAZolam 2020-0 Yes [id number] TAKE 1 U nivers 2 mg tablet 1-13 TABLET BY ity of 00:00: MOUTH [place] 00 THREE Medical TIMES Branch DAILY NEEDED ALPRAZolam 2020-0 Yes [id number] TAKE 1 U nivers 2 mg tablet 1-13 TABLET BY ity of 00:00: MOUTH [place] 00 THREE Medical TIMES Branch DAILY NEEDED ALPRAZolam 2020-0 Yes [id number] TAKE 1 U nivers 2 mg tablet 1-13 TABLET BY ity of 00:00: MOUTH [place] THREE Medical TIMES Branch DAILY NEEDED ALPRAZolam 2020-0 Yes [id number] TAKE 1 U nivers 2 mg tablet 1-13 TABLET BY ity of 00:00: MOUTH [place] THREE Medical TIMES Branch DAILY NEEDED ALPRAZolam 2020-0 Yes [id number] TAKE 1 U nivers 2 mg tablet 1-13 TABLET BY ity of 00:00: MOUTH [place] 00 THREE Medical TIMES Branch DAILY NEEDED ALPRAZolam 2020-0 Yes [id number] TAKE 1 U nivers 2 mg tablet 1-13 TABLET BY ity of 00:00: [facility] THREE Medical TIMES Branch DAILY NEEDED ALPRAZolam 2020-0 Yes [id number] TAKE 1 U nivers 2 mg tablet 1-13 TABLET BY ity of 00:00: [facility] THREE Medical TIMES Branch DAILY NEEDED ALPRAZolam 2020-0 Yes [id number] TAKE 1 U nivers 2 mg tablet 1-13 TABLET BY ity of 00:00: MOUTH [place] 00 THREE Medical TIMES Branch DAILY NEEDED ALPRAZolam 2020-0 Yes [id number] TAKE 1 U nivers 2 mg tablet 1-13 TABLET BY ity of 00:00: [facility] THREE Medical TIMES Branch DAILY NEEDED ALPRAZolam 2020-0 Yes [id number] TAKE 1 U nivers 2 mg tablet 1-13 TABLET BY ity of 00:00: MOUTH [place] 00 THREE Medical TIMES Branch DAILY NEEDED ALPRAZolam 2020-0 Yes Generalized TAKE 1 Univers 2 mg tablet 1-13 anxiety TABLET BY ity of 00:00: disorder MOUTH [place] 00 THREE Medical TIMES Branch DAILY NEEDED ALPRAZolam 2020-0 2020- No [id number] TAKE 1 Univers 2 mg tablet 1-13 06-16 TABLET BY it y of 00:00: 00:00 MOUTH [place] 00 :00 THREE Medical TIMES Branch DAILY NEEDED traMADoL 50 2019-1 2020- No [id number] 50mg Take 1 Uni vers mg tablet 2-10 12-18 tablet by ity of 00:00: 05:59 mouth [place] 00 :00 every 6 Medical (six) Branch hours as needed for Pain (scale 4-6) for up to 7 days. Indication s: chronic pain ALPRAZolam 2019- Yes [id number] TAKE 1 U nivers 2 mg tablet 2-02 TABLET BY ity of 00:00: MOUTH [place] 00 THREE Medical TIMES Branch DAILY NEEDED ALPRAZolam 2019-08 Yes [id number] TAKE 1 U nivers 2 mg tablet 2-02 TABLET BY ity of 00:00: MOUTH [place] 00 THREE Medical TIMES Branch DAILY NEEDED ALPRAZolam 2019-08 Yes [id number] TAKE 1 U nivers 2 mg tablet 2-02 TABLET BY ity of 00:00: MOUTH [place] 00 THREE Medical TIMES Branch DAILY NEEDED ALPRAZolam 2019-08 Yes [id number] TAKE 1 U nivers 2 mg tablet 2-02 TABLET BY ity of 00:00: MOUTH [place] 00 THREE Medical TIMES Branch DAILY NEEDED ALPRAZolam 2019-08 Yes [id number] TAKE 1 U nivers 2 mg tablet 2-02 TABLET BY ity of 00:00: MOUTH [place] 00 THREE Medical TIMES Branch DAILY NEEDED ALPRAZolam 2019-08 Yes [id number] TAKE 1 U nivers 2 mg tablet 2-02 TABLET BY ity of 00:00: MOUTH [place] 00 THREE Medical TIMES Branch DAILY NEEDED ALPRAZolam 2019-08 Yes [id number] TAKE 1 U nivers 2 mg tablet 2-02 TABLET BY ity of 00:00: MOUTH [place] 00 THREE Medical TIMES Branch DAILY NEEDED ALPRAZolam 2019- Yes [id number] TAKE 1 U nivers 2 mg tablet 2-02 TABLET BY ity of 00:00: MOUTH [place] 00 THREE Medical TIMES Branch DAILY NEEDED ALPRAZolam 2019-08 Yes [id number] TAKE 1 U nivers 2 mg tablet 2-02 TABLET BY ity of 00:00: MOUTH [place] 00 THREE Medical TIMES Branch DAILY NEEDED ALPRAZolam 2019- Yes [id number] TAKE 1 U nivers 2 mg tablet 2-02 TABLET BY ity of 00:00: MOUTH [place] 00 THREE Medical TIMES Branch DAILY NEEDED ALPRAZolam 2019- Yes [id number] TAKE 1 U nivers 2 mg tablet 2-02 TABLET BY ity of 00:00: MOUTH [place] 00 THREE Medical TIMES Branch DAILY NEEDED ALPRAZolam 2019-08 No [id number] TAKE 1 Univers 2 mg tablet 09-21 TABLET BY it y of 00:00: 00:00 MOUTH [place] 00 :00 THREE Medical TIMES Branch DAILY NEEDED ALPRAZolam 2019-08 No [id number] TAKE 1 Univers 2 mg tablet 09-21 TABLET BY it y of 00:00: 00:00 MOUTH [place] 00 :00 THREE Medical TIMES Branch DAILY NEEDED traMADoL 50 2019-08- No [id number] 50mg Take 1 Uni vers mg tablet 09-04-24 tablet by ity of 00:00: 05:59 mouth [place] 00 :00 every 6 Medical (six) Branch hours as needed for Pain (scale 4-6) for up to 7 days. Indication s: chronic pain traMADoL 50 2019-08 No [id number] 50mg Take 1 Uni vers mg tablet 09-0424 tablet by ity of 00:00: 05:59 mouth [place] 00 :00 every 6 Medical (six) Branch hours as needed for Pain (scale 4-6) for up to 7 days. Indication s: chronic pain traMADoL 50 2019-08 No [id number] 50mg Take 1 Uni vers mg tablet 09-04-24 tablet by ity of 00:00: 05:59 mouth [place] 00 :00 every 6 Medical (six) Branch hours as needed for Pain (scale 4-6) for up to 7 days. Indication s: chronic pain traMADoL 50 2019-08- No [id number] 50mg Take 1 Uni vers mg tablet 09-04-24 tablet by ity of 00:00: 05:59 mouth [place] 00 :00 every 6 Medical (six) Branch hours as needed for Pain (scale 4-6) for up to 7 days. Indication s: chronic pain traMADoL 50 2019-08- No [id number] 50mg Take 1 Uni vers mg tablet 16 -24 tablet by ity of 00:00: 05:59 mouth [place] 00 :00 every 6 Medical (six) Branch hours as needed for Pain (scale 4-6) for up to 7 days. Indication s: chronic pain spironolact 2019-08 Yes .5mg Take 0.5 Un jennifer one 25 mg 0-29 mg by ity of tablet 19:32: mouth. [address] Branch spironolact 2020-1 Yes .5mg Take 0.5 Un jennifer one 25 mg 0-29 mg by ity of tablet 19:32: mouth. [place] [address] Medical Branch spironolact 2020-1 Yes .5mg Take 0.5 Un jennifer one 25 mg 0-29 mg by ity of tablet 19:32: mouth. [address] Branch spironolact 2020- Yes .5mg Take 0.5 Un jennifer one 25 mg 0-29 mg by ity of tablet 19:32: mouth. [address] Branch spironolact 2020- Yes .5mg Take 0.5 Un jennifer one 25 mg 0-29 mg by ity of tablet 19:32: mouth. [address] Branch spironolact 2020- Yes .5mg Take 0.5 Un jennifer one 25 mg 0-29 mg by ity of tablet 19:32: mouth. [address] spironolact 2020- Yes .5mg Take 0.5 Un jennifer one 25 mg 0-29 mg by ity of tablet 19:32: mouth. [address] Branch spironolact 2020- Yes .5mg Take 0.5 Un jennifer one 25 mg 0-29 mg by ity of tablet 19:32: mouth. [address] spironolact 2020-1 Yes .5mg Take 0.5 Un jennifer one 25 mg 0-29 mg by ity of tablet 19:32: mouth. [address] Branch spironolact 2020-1 Yes .5mg Take 0.5 Un jennifer one 25 mg 0-29 mg by ity of tablet 19:32: mouth. [address] Branch spironolact 2020-1 Yes .5mg Take 0.5 Un jennifer one 25 mg 0-29 mg by ity of tablet 19:32: mouth. [address] Branch spironolact 2020-1 Yes .5mg Take 0.5 Un jennifer one 25 mg 0-29 mg by ity of tablet 19:32: mouth. [address] spironolact 2020-1 Yes .5mg Take 0.5 Un jennifer one 25 mg 0-29 mg by ity of tablet 19:32: mouth. [address] Branch spironolact 2020-1 Yes .5mg Take 0.5 Un jennifer one 25 mg 0-29 mg by ity of tablet 19:32: mouth. [address] Branch spironolact 2020-1 Yes .5mg Take 0.5 Un jennifer one 25 mg 0-29 mg by ity of tablet 19:32: mouth. [address] Branch spironolact 2020- Yes .5mg Take 0.5 Un jennifer one 25 mg 0-29 mg by ity of tablet 19:32: mouth. [address] Branch spironolact 2020- Yes .5mg Take 0.5 Un jennifer one 25 mg 0-29 mg by ity of tablet 19:32: mouth. [address] Branch spironolact 2020- Yes .5mg Take 0.5 Un jennifer one 25 mg 0-29 mg by ity of tablet 19:32: mouth. [address] spironolact 2020- Yes .5mg Take 0.5 Un jennifer one 25 mg 0-29 mg by ity of tablet 19:32: mouth. [address] spironolact 2020- Yes .5mg Take 0.5 Un jennifer one 25 mg 0-29 mg by ity of tablet 19:32: mouth. [address] spironolact 2020- Yes .5mg Take 0.5 Un jennifer one 25 mg 0-29 mg by ity of tablet 19:32: mouth. [address] spironolact 2020- Yes .5mg Take 0.5 Un jennifer one 25 mg 0-29 mg by ity of tablet 19:32: mouth. [address] spironolact 2020-1 Yes .5mg Take 0.5 Un jennifer one 25 mg 0-29 mg by ity of tablet 19:32: mouth. [address] Branch spironolact 2020-1 Yes .5mg Take 0.5 Un jennifer one 25 mg 0-29 mg by ity of tablet 19:32: mouth. [address] Branch spironolact 2020-1 Yes .5mg Take 0.5 Un jennifer one 25 mg 0-29 mg by ity of tablet 19:32: mouth. [address] spironolact 2020-1 Yes .5mg Take 0.5 Un jennifer one 25 mg 0-29 mg by ity of tablet 19:32: mouth. [address] Branch spironolact 2020-1 Yes .5mg Take 0.5 Un jennifer one 25 mg 0-29 mg by ity of tablet 19:32: mouth. [place] [address] Medical Branch spironolact 2020-1 Yes .5mg Take 0.5 Un jennifer one 25 mg 0-29 mg by ity of tablet 19:32: mouth. [address] Branch spironolact 2020- Yes .5mg Take 0.5 Un jennifer one 25 mg 0-29 mg by ity of tablet 19:32: mouth. [address] Branch spironolact 2020- Yes .5mg Take 0.5 Un jennifer one 25 mg 0-29 mg by ity of tablet 19:32: mouth. [address] Branch spironolact 2020- Yes .5mg Take 0.5 Un jennifer one 25 mg 0-29 mg by ity of tablet 19:32: mouth. [address] spironolact 2020- Yes .5mg Take 0.5 Un jennifer one 25 mg 0-29 mg by ity of tablet 19:32: mouth. [address] Branch spironolact 2020- Yes .5mg Take 0.5 Un jennifer one 25 mg 0-29 mg by ity of tablet 19:32: mouth. [address] spironolact 2020-1 Yes .5mg Take 0.5 Un jennifer one 25 mg 0-29 mg by ity of tablet 19:32: mouth. [address] Branch spironolact 2020-1 Yes .5mg Take 0.5 Un jennifer one 25 mg 0-29 mg by ity of tablet 19:32: mouth. [address] Branch spironolact 2020-1 Yes .5mg Take 0.5 Un jennifer one 25 mg 0-29 mg by ity of tablet 19:32: mouth. [address] Branch spironolact 2020-1 Yes .5mg Take 0.5 Un jennifer one 25 mg 0-29 mg by ity of tablet 19:32: mouth. [address] spironolact 2020-1 Yes .5mg Take 0.5 Un jennifer one 25 mg 0-29 mg by ity of tablet 19:32: mouth. [address] Branch spironolact 2020-1 Yes .5mg Take 0.5 Un jennifer one 25 mg 0-29 mg by ity of tablet 19:32: mouth. [address] spironolact 2019- Yes .5mg Take 0.5 Un jennifer one 25 mg 0-29 mg by ity of tablet 19:32: mouth. [address] spironolact 2019-08 Yes .5mg Take 0.5 Un jennifer one 25 mg 0-29 mg by ity of tablet 19:32: mouth. [address] SPIRONOLACT 2019-08 2020- No Take by U nivers ONE ORAL 0-29 10-29 mouth. ity of 19:30: 00:00 [place] [address] :00 [facility] ALPRAZolam 2020- 2020- No 2mg Take 2 mg U nivers 2 mg tablet 0-29 10-29 by mouth. it y of 19:30: 00:00 [place] 45 :00 [facility] SPIRONOLACT 2019- 2020- No Take by U nivers ONE ORAL 0-29 10-29 mouth. ity of 19:30: 00:00 [place] [address] :00 [facility] ALPRAZolam 2020- 2020- No 2mg Take 2 mg U nivers 2 mg tablet 0-29 10-29 by mouth. it y of 19:30: 00:00 [place] 45 :00 [facility] SPIRONOLACT 2019- 2020- No Take by U nivers ONE ORAL 0-29 10-29 mouth. ity of 19:30: 00:00 [place] 45 :00 [facility] ALPRAZolam 2020- 2020- No 2mg Take 2 mg U nivers 2 mg tablet 0-29 10-29 by mouth. it y of 19:30: 00:00 [place] 45 :00 [facility] SPIRONOLACT 2020- 2020- No Take by U nivers ONE ORAL 0-29 10-29 mouth. ity of 19:30: 00:00 [place] 45 :00 [facility] ALPRAZolam 2020- 2020- No 2mg Take 2 mg U nivers 2 mg tablet 0-29 10-29 by mouth. it y of 19:30: 00:00 [place] 45 :[address] [place] [address] spironolact 2020- Yes .5mg Take 0.5 Un jennifer one 25 mg 0-29 mg by ity of tablet 14:32: mouth. [place] 48 Medical Branch spironolact 2019-08 Yes .5mg Take 0.5 Un jennifer one 25 mg 0-29 mg by ity of tablet 14:32: mouth. [address] Branch spironolact 2019- Yes .5mg Take 0.5 Un jennifer one 25 mg 0-29 mg by ity of tablet 14:32: mouth. [address] spironolact 2019- Yes .5mg Take 0.5 Un jennifer one 25 mg 0-29 mg by ity of tablet 14:32: mouth. [address] spironolact 2019- Yes .5mg Take 0.5 Un jennifer one 25 mg 0-29 mg by ity of tablet 14:32: mouth. [address] ciprofloxac 2019- Yes [id number] 250mg Take 1 Univers in HCl 0-29 tablet by ity of (CIPRO) 250 00:00: mouth [place] mg tablet 00 every 12 Medica l (twelve) Branch hours. ciprofloxac 2019- Yes [id number] 250mg Take 1 Univers in HCl 0-29 tablet by ity of (CIPRO) 250 00:00: mouth [place] mg tablet 00 every 12 Medica l (twelve) Branch hours. ciprofloxac 2019- Yes [id number] 250mg Take 1 Univers in HCl 0-29 tablet by ity of (CIPRO) 250 00:00: mouth [place] mg tablet 00 every 12 Medica l (twelve) Branch hours. ciprofloxac 2019- Yes [id number] 250mg Take 1 Univers in HCl 0-29 tablet by ity of (CIPRO) 250 00:00: mouth [place] mg tablet 00 every 12 Medica l (twelve) Branch hours. ciprofloxac 2019- Yes [id number] 250mg Take 1 Univers in HCl 0-29 tablet by ity of (CIPRO) 250 00:00: mouth [place] mg tablet 00 every 12 Medica l (twelve) Branch hours. ciprofloxac 2019- Yes [id number] 250mg Take 1 Univers in HCl 0-29 tablet by ity of (CIPRO) 250 00:00: mouth [place] mg tablet 00 every 12 Medica l (twelve) Branch hours. ciprofloxac 2019- Yes [id number] 250mg Take 1 Univers in HCl 0-29 tablet by ity of (CIPRO) 250 00:00: mouth [place] mg tablet 00 every 12 Medica l (twelve) Branch hours. ciprofloxac 2019- Yes [id number] 250mg Take 1 Univers in HCl 0-29 tablet by ity of (CIPRO) 250 00:00: mouth [place] mg tablet 00 every 12 Medica l (twelve) Branch hours. ciprofloxac 2019- Yes [id number] 250mg Take 1 Univers in HCl 0-29 tablet by ity of (CIPRO) 250 00:00: mouth [place] mg tablet 00 every 12 Medica l (twelve) Branch hours. ciprofloxac 2019- Yes [id number] 250mg Take 1 Univers in HCl 0-29 tablet by ity of (CIPRO) 250 00:00: mouth [place] mg tablet 00 every 12 Medica l (twelve) Branch hours. ciprofloxac 2019- Yes [id number] 250mg Take 1 Univers in HCl 0-29 tablet by ity of (CIPRO) 250 00:00: mouth [place] mg tablet 00 every 12 Medica l (twelve) Branch hours. ciprofloxac 2019- Yes [id number] 250mg Take 1 Univers in HCl 0-29 tablet by ity of (CIPRO) 250 00:00: mouth [place] mg tablet 00 every 12 Medica l (twelve) Branch hours. ciprofloxac 2019- Yes [id number] 250mg Take 1 Univers in HCl 0-29 tablet by ity of (CIPRO) 250 00:00: mouth [place] mg tablet 00 every 12 Medica l (twelve) Branch hours. ciprofloxac 2019- Yes [id number] 250mg Take 1 Univers in HCl 0-29 tablet by ity of (CIPRO) 250 00:00: mouth [place] mg tablet 00 every 12 Medica l (twelve) Branch hours. ciprofloxac 2019- Yes [id number] 250mg Take 1 Univers in HCl 0-29 tablet by ity of (CIPRO) 250 00:00: mouth [place] mg tablet 00 every 12 Medica l (twelve) Branch hours. ciprofloxac 2019- Yes [id number] 250mg Take 1 Univers in HCl 0-29 tablet by ity of (CIPRO) 250 00:00: mouth [place] mg tablet 00 every 12 Medica l (twelve) Branch hours. ciprofloxac 2020- Yes [id number] 250mg Take 1 Univers in HCl 0-29 tablet by ity of (CIPRO) 250 00:00: mouth [place] mg tablet 00 every 12 Medica l (twelve) Branch hours. ciprofloxac 2019- Yes [id number] 250mg Take 1 Univers in HCl 0-29 tablet by ity of (CIPRO) 250 00:00: mouth [place] mg tablet 00 every 12 Medica l (twelve) Branch hours. ciprofloxac 2019- Yes [id number] 250mg Take 1 Univers in HCl 0-29 tablet by ity of (CIPRO) 250 00:00: mouth [place] mg tablet 00 every 12 Medica l (twelve) Branch hours. ciprofloxac 2019- Yes [id number] 250mg Take 1 Univers in HCl 0-29 tablet by ity of (CIPRO) 250 00:00: mouth [place] mg tablet 00 every 12 Medica l (twelve) Branch hours. ciprofloxac 2019- Yes [id number] 250mg Take 1 Univers in HCl 0-29 tablet by ity of (CIPRO) 250 00:00: mouth [place] mg tablet 00 every 12 Medica l (twelve) Branch hours. ciprofloxac 2019- Yes [id number] 250mg Take 1 Univers in HCl 0-29 tablet by ity of (CIPRO) 250 00:00: mouth [place] mg tablet 00 every 12 Medica l (twelve) Branch hours. ciprofloxac 2019- Yes [id number] 250mg Take 1 Univers in HCl 0-29 tablet by ity of (CIPRO) 250 00:00: mouth [place] mg tablet 00 every 12 Medica l (twelve) Branch hours. ciprofloxac 2019- Yes [id number] 250mg Take 1 Univers in HCl 0-29 tablet by ity of (CIPRO) 250 00:00: mouth [place] mg tablet 00 every 12 Medica l (twelve) Branch hours. ciprofloxac 2020- Yes [id number] 250mg Take 1 Univers in HCl 0-29 tablet by ity of (CIPRO) 250 00:00: mouth [place] mg tablet 00 every 12 Medica l (twelve) Branch hours. ciprofloxac 2019- Yes [id number] 250mg Take 1 [facility] HCl 0-29 tablet by [facility] of (CIPRO) 250 00:00: mouth [place] mg tablet 00 every 12 [facility] l (twelve) Branch hours. ciprofloxac 2019- Yes [id number] 250mg Take 1 [facility] in HCl 0-29 tablet by [facility] of (CIPRO) 250 00:00: mouth [place] mg tablet 00 every 12 [facility] (twelve) Branch hours. ciprofloxac 2019- Yes [id number] 250mg Take 1 [facility] in HCl 0-29 tablet by [facility] of (CIPRO) 250 00:00: mouth [place] mg tablet 00 every 12 Med[facility] l (twelve) Branch hours. ciprofloxac 2019-08 Yes [id number] 250mg Take 1 [facility] in HCl 0-29 tablet by [facility] of (CIPRO) 250 00:00: mouth [place] mg tablet 00 every 12 Med[facility] l (twelve) Branch hours. ciprofloxac 2019-08 Yes [id number] 250mg Take 1 [facility] in HCl 0-29 tablet by [facility]y of (CIPRO) 250 00:00: mouth [place] mg tablet 00 every 12 Medica l (twelve) Branch hours. ciprofloxac 2019-08 Yes [id number] 250mg Take 1 [facility] in HCl 0-29 tablet by [facility] of (CIPRO) 250 00:00: mouth [place] mg tablet 00 every 12 Medica l (twelve) Branch hours. ciprofloxac 2019- Yes [id number] 250mg Take 1 [facility] in HCl 0-29 tablet by [facility] of (CIPRO) 250 00:00: mouth [place] mg tablet 00 every 12 Medica l (twelve) Branch hours. ciprofloxac 2019- Yes [id number] 250mg Take 1 [facility] in HCl 0-29 tablet by [facility] of (CIPRO) 250 00:00: mouth [place] mg tablet 00 every 12 Medica l (twelve) Branch hours. ciprofloxac 2019- Yes [id number] 250mg Take 1 [facility] in HCl 0-29 tablet by [facility] of (CIPRO) 250 00:00: mouth [place] mg tablet 00 every 12 Medica l (twelve) Branch hours. ciprofloxac 2019- Yes [id number] 250mg Take 1 [facility] in HCl 0-29 tablet by ity of (CIPRO) 250 00:00: mouth [place] mg tablet 00 every 12 Medica l (twelve) Branch hours. ciprofloxac 2020- Yes [id number] 250mg Take 1 [facility] in HCl 0-29 tablet by [facility] of (CIPRO) 250 00:00: mouth [place] mg tablet 00 every 12 Medica l (twelve) Branch hours. ciprofloxac 2020- Yes [id number] 250mg Take 1 [facility] in HCl 0-29 tablet by [facility] of (CIPRO) 250 00:00: mouth [place] mg tablet 00 every 12 Medica l (twelve) Branch hours. ciprofloxac 2019- Yes [id number] 250mg Take 1 [facility] in HCl 0-29 tablet by [facility] of (CIPRO) 250 00:00: mouth [place] mg tablet 00 every 12 Medica l (twelve) Branch hours. ciprofloxac 2019- Yes [id number] 250mg Take 1 [facility] in HCl 0-29 tablet by [facility] of (CIPRO) 250 00:00: mouth [place] mg tablet 00 every 12 [facility]ica [facility] (twelve) Branch hours. ciprofloxac 2019- Yes [id number] 250mg Take 1 [facility] in HCl 0-29 tablet by [facility] of (CIPRO) 250 00:00: mouth [place] mg tablet 00 every 12 [facility] (twelve) Branch hours. ciprofloxac 2019- Yes [id number] 250mg Take 1 [facility] in HCl 0-29 tablet by [facility] of (CIPRO) 250 00:00: mouth [place] mg tablet 00 every 12 [facility] (twelve) Branch hours. ciprofloxac 2019- Yes [id number] 250mg Take 1 [facility] in HCl 0-29 tablet by [facility] of (CIPRO) 250 00:00: mouth [place] mg tablet 00 every 12 Medica [facility] (twelve) Branch hours. ciprofloxac 2020- Yes [id number] 250mg Take 1 [facility] in HCl 0-29 tablet by [facility] of (CIPRO) 250 00:00: mouth [place] mg tablet 00 every 12 Medica l (twelve) Branch hours. ciprofloxac 2020- Yes [id number] 250mg Take 1 [facility] in HCl 0-29 tablet by [facility]y of (CIPRO) 250 00:00: mouth [place] mg tablet 00 every 12 Medica l (twelve) Branch hours. ciprofloxac 2020- Yes [id number] 250mg Take 1 [facility] in HCl 0-29 tablet by [facility] of (CIPRO) 250 00:00: mouth [place] mg tablet 00 every 12 [facility]ica [facility] (twelve) Branch hours. ciprofloxac 2019- Yes [id number] 250mg Take 1 [facility] in HCl 0-29 tablet by [facility] of (CIPRO) 250 00:00: mouth [place] mg tablet 00 every 12 [facility] (twelve) Branch hours. ciprofloxac 2019- Yes [id number] 250mg Take 1 [facility] in HCl 0-29 tablet by [facility] of (CIPRO) 250 00:00: mouth [place] mg tablet 00 every 12 [facility] (twelve) Branch hours. ciprofloxac 2019- Yes [id number] 250mg Take 1 [facility] in HCl 0-29 tablet by [facility] of (CIPRO) 250 00:00: mouth [place] mg tablet 00 every 12 Medica l (twelve) Branch hours. ciprofloxac 2019- Yes [id number] 250mg Take 1 [facility] in HCl 0-29 tablet by ity of (CIPRO) 250 00:00: mouth [place] mg tablet 00 every 12 [facility]ica [facility] (twelve) Branch hours. ciprofloxac 2019- Yes [id number] 250mg Take 1 [facility] in HCl 0-29 tablet by ity of (CIPRO) 250 00:00: mouth [place] mg tablet 00 every 12 Medica [facility] (twelve) Branch hours. ciprofloxac 2019- Yes [id number] 250mg Take 1 [facility] in HCl 0-29 tablet by ity of (CIPRO) 250 00:00: mouth [place] mg tablet 00 every 12 Medica [facility] (twelve) Branch hours. ciprofloxac 2019- Yes [id number] 250mg Take 1 [facility] in HCl 0-29 tablet by [facility] of (CIPRO) 250 00:00: mouth [place] mg tablet 00 every 12 Medica l (twelve) Branch hours. ciprofloxac 2019- Yes [id number] 250mg Take 1 [facility] in HCl 0-29 tablet by [facility] of (CIPRO) 250 00:00: mouth [place] mg tablet 00 every 12 Medica [facility] (twelve) Branch hours. ciprofloxac 2019- Yes [id number] 250mg Take 1 [facility] in HCl 0-29 tablet by [facility] of (CIPRO) 250 00:00: mouth [place] mg tablet 00 every 12 [facility]ica [facility] (twelve) Branch hours. ciprofloxac 2020- Yes [id number] 250mg Take 1 [facility] in HCl 0-29 tablet by [facility] of (CIPRO) 250 00:00: mouth [place] mg tablet 00 every 12 [facility]ica [facility] (twelve) Branch hours. ciprofloxac 2019- Yes [id number] 250mg Take 1 [facility] in HCl 0-29 tablet by [facility] of (CIPRO) 250 00:00: mouth [place] mg tablet 00 every 12 [facility] (twelve) Branch hours. ciprofloxac 2019- Yes [id number] 250mg Take 1 [facility] in HCl 0-29 tablet by [facility]y of (CIPRO) 250 00:00: mouth [place] mg tablet 00 every 12 Medica [facility] (twelve) Branch hours. ciprofloxac 2019- Yes [id number] 250mg Take 1 [facility] in HCl 0-29 tablet by ity of (CIPRO) 250 00:00: mouth [place] mg tablet 00 every 12 Medica [facility] (twelve) Branch hours. ciprofloxac 2019- Yes [id number] 250mg Take 1 [facility] in HCl 0-29 tablet by [facility]y of (CIPRO) 250 00:00: mouth [place] mg tablet 00 every 12 [facility] (twelve) Branch hours. ciprofloxac 2019- Yes [id number] 250mg Take 1 [facility] in HCl 0-29 tablet by ity of (CIPRO) 250 00:00: mouth [place] mg tablet 00 every 12 Med[facility] l (twelve) Branch hours. ciprofloxac 2019- Yes [id number] 250mg Take 1 [facility] in HCl 0-29 tablet by ity of (CIPRO) 250 00:00: mouth [place] mg tablet 00 every 12 [facility] (twelve) Branch hours. ciprofloxac 2019- Yes [id number] 250mg Take 1 [facility] in HCl 0-29 tablet by ity of (CIPRO) 250 00:00: mouth [place] mg tablet 00 every 12 Medica l (twelve) Branch hours. ciprofloxac 2019- Yes [id number] 250mg Take 1 [facility] in HCl 0-29 tablet by ity of (CIPRO) 250 00:00: mouth [place] mg tablet 00 every 12 Medica l (twelve) Branch hours. ciprofloxac 2019-08 Yes [id number] 250mg Take 1 [facility] in HCl 0-29 tablet by ity of (CIPRO) 250 00:00: mouth [place] mg tablet 00 every 12 Medica l (twelve) Branch hours. ciprofloxac 2019-08- No [id number] 250mg Take 1 [facility] in HCl 0-29 04-15 tablet by [facility] of (CIPRO) 250 00:00: 00:00 mouth [place] mg tablet 00 :00 every 12 [facility] (twelve) Branch hours. ciprofloxac 2019-08- No [id number] 250mg Take 1 [facility] in HCl 0-29 04-15 tablet by [facility]y of (CIPRO) 250 00:00: 00:00 mouth [place] mg tablet 00 :00 every 12 Medica l (twelve) Branch hours. ALPRAZolam 2019-08 Yes [id number] TAKE 1 [facility] 2 mg tablet 0-14 TABLET BY ity of 00:00: MOUTH [place] 00 THREE Medical TIMES Branch DAILY NEEDED ALPRAZolam 2020- Yes [id number] TAKE 1 [facility] 2 mg tablet 0-14 TABLET BY ity of 00:00: MOUTH [place] 00 THREE Medical TIMES Branch DAILY NEEDED ALPRAZolam 2020- Yes [id number] TAKE 1 [facility] 2 mg tablet 0-14 TABLET BY ity of 00:00: MOUTH [place] 00 THREE Medical TIMES Branch DAILY NEEDED ALPRAZolam 2020- Yes [id number] TAKE 1 [facility] 2 mg tablet 0-14 TABLET BY ity of 00:00: MOUTH [place] THREE Medical TIMES Branch DAILY NEEDED ALPRAZolam 2020- Yes [id number] TAKE 1 [facility] 2 mg tablet 0-14 TABLET BY ity of 00:00: MOUTH [place] THREE Medical TIMES Branch DAILY NEEDED ALPRAZolam 2020- Yes [id number] TAKE 1 [facility] 2 mg tablet 0-14 TABLET BY ity of 00:00: MOUTH [place] 00 THREE Medical TIMES Branch DAILY NEEDED ALPRAZolam 2020- Yes [id number] TAKE 1 [facility] n[facility] 2 mg tablet 0-14 TABLET BY ity of 00:00: MOUTH [place] 00 THREE Medical TIMES Branch DAILY NEEDED ALPRAZolam 2020- Yes [id number] TAKE 1 [facility] nivers 2 mg tablet 0-14 TABLET BY ity of 00:00: MOUTH [place] 00 THREE Medical TIMES Branch DAILY NEEDED ALPRAZolam 2020-1 Yes [id number] TAKE 1 [facility] nivers 2 mg tablet 0-14 TABLET BY ity of 00:00: MOUTH [place] 00 THREE Medical TIMES Branch DAILY NEEDED ALPRAZolam 2020-1 Yes [id number] TAKE 1 [facility] nivers 2 mg tablet 0-14 TABLET BY ity of 00:00: MOUTH [place] THREE Medical TIMES Branch DAILY NEEDED ALPRAZolam 2020-1 Yes [id number] TAKE 1 [facility] nivers 2 mg tablet 0-14 TABLET BY ity of 00:00: MOUTH [place] THREE Medical TIMES Branch DAILY NEEDED ALPRAZolam 2020-1 Yes [id number] TAKE 1 [facility] nivers 2 mg tablet 0-14 TABLET BY ity of 00:00: MOUTH [place] THREE Medical TIMES Branch DAILY NEEDED ALPRAZolam 2020-1 Yes [id number] TAKE 1 [facility] nivers 2 mg tablet 0-14 TABLET BY ity of 00:00: [facility] THREE Medical TIMES Branch DAILY NEEDED ALPRAZolam 2020-1 Yes [id number] TAKE 1 U nivers 2 mg tablet 0-14 TABLET BY ity of 00:00: MOUTH [place] THREE Medical TIMES Branch DAILY NEEDED ALPRAZolam 2020-1 Yes [id number] TAKE 1 U nivers 2 mg tablet 0-14 TABLET BY ity of 00:00: MOUTH [place] THREE Medical TIMES Branch DAILY NEEDED ALPRAZolam 2020-1 Yes [id number] TAKE 1 U nivers 2 mg tablet 0-14 TABLET BY ity of 00:00: [facility] THREE Medical TIMES Branch DAILY NEEDED ALPRAZolam 2020-1 Yes [id number] TAKE 1 U nivers 2 mg tablet 0-14 TABLET BY ity of 00:00: MOUTH [place] THREE Medical TIMES Branch DAILY NEEDED ALPRAZolam 2020-1 Yes [id number] TAKE 1 [facility] nivers 2 mg tablet 0-14 TABLET BY ity of 00:00: MOUTH [place] 00 THREE Medical TIMES Branch DAILY NEEDED ALPRAZolam 2020-1 2020- No [id number] TAKE 1 [facility] 2 mg tablet 0-14 12-02 TABLET BY it y of 00:00: 00:00 MOUTH [place] 00 :00 THREE Medical TIMES Branch DAILY NEEDED ALPRAZolam 2020-1 2020- No [id number] TAKE 1 [facility] 2 mg tablet 0-14 12-02 TABLET BY it y of 00:00: 00:00 MOUTH [place] 00 :00 THREE Medical TIMES Branch DAILY NEEDED ALPRAZolam 2019- 2020- No [id number] TAKE 1 [facility] 2 mg tablet 0-14 - TABLET BY it y of 00:00: 00:00 MOUTH [place] 00 :00 THREE Medical TIMES Branch DAILY NEEDED furosemide 2019-0 2020- No 80mg Take 80 mg [facility] 20 mg 9-13 06-29 by mouth 2 ity of tablet 00:00: 00:00 (two) [place] 00 :00 times Medical daily. Branch furosemide 2019-0 2020- No 80mg Take 80 mg [facility] 20 mg 9-13 06-29 by mouth 2 ity of tablet 00:00: 00:00 (two) [place] 00 :00 times Medical daily. Branch furosemide 2020-0 2020- No 80mg Take 80 mg [facility] 20 mg -13 06- by mouth 2 ity of tablet 00:00: 00:00 (two) [place] 00 :00 times Medical daily. Branch furosemide 2019-0 2020- No 80mg Take 80 mg [facility] 20 mg -13 06- by mouth 2 ity of tablet 00:00: 00:00 (two) [place] 00 :00 times Medical daily. Branch traMADol 50 2019-0 2020- No [id number] 50mg Take 1 Uni vers mg tablet 03-17- tablet by ity of 00:00: 04:59 mouth [place] 00 :00 every 6 Medical (six) Branch hours as needed for Pain (scale 4-6) for up to 7 days. Indication s: acute pain traMADol 50 2019-0 2020- No [id number] 50mg Take 1 [facility] vers mg tablet 03-17- tablet by ity of 00:00: 04:59 mouth [place] 00 :00 every 6 Medical (six) Branch hours as needed for Pain (scale 4-6) for up to 7 days. Indication s: acute pain ALPRAZolam 2020-0 Yes [id number] TAKE 1 [facility] nivers 2 mg tablet 7-09 TABLET BY ity of 00:00: MOUTH [place] 00 THREE Medical TIMES Branch DAILY NEEDED ALPRAZolam 2020-0 Yes [id number] TAKE 1 [facility] nivers 2 mg tablet 7-09 TABLET BY ity of 00:00: MOUTH [place] 00 THREE Medical TIMES Branch DAILY NEEDED ALPRAZolam 2020-0 Yes [id number] TAKE 1 [facility] nivers 2 mg tablet 7-09 TABLET BY ity of 00:00: MOUTH [place] 00 THREE Medical TIMES Branch DAILY NEEDED ALPRAZolam 2020-0 Yes [id number] TAKE 1 [facility] nivers 2 mg tablet 7-09 TABLET BY ity of 00:00: MOUTH [place] 00 THREE Medical TIMES Branch DAILY NEEDED ALPRAZolam 2020-0 2020- No [id number] TAKE 1 [facility] 2 mg tablet 7- 10-14 TABLET BY it y of 00:00: 00:00 MOUTH [place] 00 :00 THREE Medical TIMES Branch DAILY NEEDED ALPRAZolam 2020-0 Yes [id number] TAKE 1 [facility] nivers 2 mg tablet 1-09 TABLET BY ity of 00:00: MOUTH [place] 00 THREE Medical TIMES Branch DAILY NEEDED FOR SLEEP ALPRAZolam 2020-0 Yes [id number] TAKE 1 [facility] nivers 2 mg tablet 1-09 TABLET BY ity of 00:00: MOUTH [place] 00 THREE Medical TIMES Branch DAILY NEEDED FOR SLEEP ALPRAZolam 2020-0 2020- No [id number] TAKE 1 [facility] 2 mg tablet 1-04 26- TABLET BY it y of 00:00: 00:00 MOUTH [place] 00 :00 THREE Medical TIMES Branch DAILY NEEDED FOR SLEEP ALPRAZolam 2020-0 2020- No [id number] TAKE 1 [facility] 2 mg tablet 08-28- TABLET BY it y of 00:00: 00:00 MOUTH [place] 00 :00 THREE Medical TIMES Branch DAILY NEEDED FOR SLEEP DIGOXIN 2019-0 Yes Take by [employer] [facility] ORAL 7-10 mouth. ity of 19:00: [address] Branch ENALAPRIL 2019-0 Yes Take by Univ ers MALEATE 7-10 mouth. ity of ORAL 19:00: [address] Branch sacubitril- 2019-0 Yes Take by [facility] jennifer valsartan 7-10 mouth 2 ity of (ENTRESTO) 19:00: (two) [place] 24-26 mg 17 times Medical Tab daily. Branch furosemide 2019-0 Yes 80mg Take 80 mg U nivers (LASIX) 80 7-10 by mouth ity o f mg tablet 19:00: daily. [address] DIGOXIN 2019-0 Yes Take by [employer] [facility] ORAL 7-10 mouth. ity of 19:00: [address] Branch SPIRONOLACT 2019-0 Yes Take by Un jennifer ONE ORAL 7-10 mouth. ity of 19:00: [address] ENALAPRIL 2018-0 Yes Take by Univ ers MALEATE 7-10 mouth. ity of ORAL 19:00: [address] Branch sacubitril- 0 Yes Take by Un jennifer valsartan 7-10 mouth 2 ity of (ENTRESTO) 19:00: (two) [place] 24-26 mg 17 times Medical Tab daily. Branch furosemide 2019-0 Yes 80mg Take 80 mg U nivers (LASIX) 80 7-10 by mouth ity o f mg tablet 19:00: daily. [address] DIGOXIN 2018-0 Yes Take by Univer s ORAL 7-10 mouth. ity of 19:00: [address] SPIRONOLACT Yes Take by Un jennifer ONE ORAL 7-10 mouth. ity of 19:00: [address] ENALAPRIL Yes Take by Univ ers MALEATE 7-10 mouth. ity of ORAL 19:00: [address] sacubitril- Yes Take by Un jennifer valsartan 7-10 mouth 2 ity of (ENTRESTO) 19:00: (two) [place] 24-26 mg 17 times Medical Tab daily. Branch furosemide 2018- Yes 80mg Take 80 mg U nivers (LASIX) 80 7-10 by mouth ity o f mg tablet 19:00: daily. [address] DIGOXIN 2018-0 Yes Take by Univer s ORAL 7-10 mouth. ity of 19:00: [address] SPIRONOLACT 0 Yes Take by Un jennifer ONE ORAL 7-10 mouth. ity of 19:00: [address] ENALAPRIL 2018- Yes Take by Univ ers MALEATE 7-10 mouth. ity of ORAL 19:00: [address] sacubitril- Yes Take by Un jenn[facility] valsartan 7-10 mouth 2 ity of (ENTRESTO) 19:00: (two) [place] 24-26 mg 17 times Medical Tab daily. Branch furosemide 2019-0 Yes 80mg Take 80 mg U nivers (LASIX) 80 7-10 by mouth ity o f mg tablet 19:00: daily. [address] DIGOXIN 2018-0 Yes Take by Univer s ORAL 7-10 mouth. ity of 19:00: [address] SPIRONOLACT Yes Take by Un jennifer ONE ORAL 7-10 mouth. ity of 19:00: [address] Branch ENALAPRIL Yes Take by Univ ers MALEATE 7-10 mouth. ity of ORAL 19:00: [address] Branch sacubitril- Yes Take by Un jennifer valsartan 7-10 mouth 2 ity of (ENTRESTO) 19:00: (two) [place] 24-26 mg 17 times Medical Tab daily. Branch furosemide 0 Yes 80mg Take 80 mg U nivers (LASIX) 80 7-10 by mouth ity o f mg tablet 19:00: daily. [address] DIGOXIN Yes Take by Univer s ORAL 7-10 mouth. ity of 19:00: [address] SPIRONOLACT Yes Take by Un jenn[facility] ONE ORAL 7-10 mouth. ity of 19:00: [address] ENALAPRIL Yes Take by [employer] [facility] MALEATE 7-10 mouth. ity of ORAL 19:00: [address] sacubitril- Yes Take by Un jennifer valsartan 7-10 mouth 2 ity of (ENTRESTO) 19:00: (two) [place] 24-26 mg 17 times Medical Tab daily. Branch furosemide Yes 80mg Take 80 mg U nivers (LASIX) 80 7-10 by mouth ity o f mg tablet 19:00: daily. [address] DIGOXIN 2018- Yes Take by Univer s ORAL 7-10 mouth. ity of 19:00: [address] SPIRONOLACT Yes Take by Un jennifer ONE ORAL 7-10 mouth. ity of 19:00: [address] ENALAPRIL 2018- Yes Take by [employer] [facility] MALEATE 7-10 mouth. ity of ORAL 19:00: [address] Branch sacubitril- Yes Take by Un jennifer valsartan 7-10 mouth 2 ity of (ENTRESTO) 19:00: (two) [place] 24-26 mg 17 times Medical Tab daily. Branch furosemide 2018-0 Yes 80mg Take 80 mg U nivers (LASIX) 80 7-10 by mouth ity o f mg tablet 19:00: daily. [address] Branch DIGOXIN 2018-0 Yes Take by Univer s ORAL 7-10 mouth. ity of 19:00: [address] Branch SPIRONOLACT 2018-0 Yes Take by Un jennifer ONE ORAL 7-10 mouth. ity of 19:00: [address] Branch ENALAPRIL 2018-0 Yes Take by Univ ers MALEATE 7-10 mouth. ity of ORAL 19:00: [address] Branch sacubitril- 2018-0 Yes Take by Un jennifer valsartan 7-10 mouth 2 ity of (ENTRESTO) 19:00: (two) [place] 24-26 mg 17 times Medical Tab daily. Branch furosemide 2018-0 Yes 80mg Take 80 mg U nivers (LASIX) 80 7-10 by mouth ity o f mg tablet 19:00: daily. [address] DIGOXIN 2018-0 Yes Take by Univer s ORAL 7-10 mouth. ity of 19:00: [address] SPIRONOLACT 2018-0 Yes Take by Un jennifer ONE ORAL 7-10 mouth. ity of 19:00: [address] ENALAPRIL 2018-0 Yes Take by Univ ers MALEATE 7-10 mouth. ity of ORAL 19:00: [address] Branch sacubitril- 0 Yes Take by Un j[facility] valsartan 7-10 mouth 2 ity of (ENTRESTO) 19:00: (two) [place] 24-26 mg 17 times Medical Tab daily. Branch furosemide 2019-0 Yes 80mg Take 80 mg U nivers (LASIX) 80 7-10 by mouth ity o f mg tablet 19:00: daily. [address] Branch DIGOXIN 2018-0 Yes Take by Univer s ORAL 7-10 mouth. ity of 19:00: [address] Branch SPIRONOLACT 2018-0 Yes Take by Un j[facility] ONE ORAL 7-10 mouth. ity of 19:00: [address] Branch ENALAPRIL 2019-0 Yes Take by Univ ers MALEATE 7-10 mouth. ity of ORAL 19:00: [address] Branch sacubitril- 2018-0 Yes Take by Un jenn[facility] valsartan 7-10 mouth 2 ity of (ENTRESTO) 19:00: (two) [place] 24-26 mg 17 times Medical Tab daily. Branch furosemide Yes 80mg Take 80 mg U nivers (LASIX) 80 7-10 by mouth ity o f mg tablet 19:00: daily. [address] DIGOXIN 0 Yes Take by Univer s ORAL 7-10 mouth. ity of 19:00: [address] SPIRONOLACT Yes Take by Un jenn[facility] ONE ORAL 7-10 mouth. ity of 19:00: [address] ENALAPRIL Yes Take by Univ ers MALEATE 7-10 mouth. ity of ORAL 19:00: [address] sacubitril- Yes Take by Un jenn[facility] valsartan 7-10 mouth 2 ity of (ENTRESTO) 19:00: (two) [place] 24-26 mg 17 times Medical Tab daily. Branch furosemide Yes 80mg Take 80 mg U nivers (LASIX) 80 7-10 by mouth ity o f mg tablet 19:00: daily. [address] DIGOXIN Yes Take by Univer s ORAL 7-10 mouth. ity of 19:00: [address] ENALAPRIL Yes Take by Univ ers MALEATE 7-10 mouth. ity of ORAL 19:00: [address] sacubitril- Yes Take by Un jennifer valsartan 7-10 mouth 2 ity of (ENTRESTO) 19:00: (two) [place] 24-26 mg 17 times Medical Tab daily. Branch furosemide Yes 80mg Take 80 mg U nivers (LASIX) 80 7-10 by mouth ity o f mg tablet 19:00: daily. [address] DIGOXIN Yes Take by Univer s ORAL 7-10 mouth. ity of 19:00: [address] ENALAPRIL Yes Take by Univ ers MALEATE 7-10 mouth. ity of ORAL 19:00: [address] sacubitril- Yes Take by Un [facility] valsartan 7-10 mouth 2 ity of (ENTRESTO) 19:00: (two) [place] 24-26 mg 17 times Medical Tab daily. Branch furosemide Yes 80mg Take 80 mg U nivers (LASIX) 80 7-10 by mouth ity o f mg tablet 19:00: daily. [address] Branch DIGOXIN 2018-0 Yes Take by Univer s ORAL 7-10 mouth. ity of 19:00: [address] Branch ENALAPRIL 0 Yes Take by Univ ers MALEATE 7-10 mouth. ity of ORAL 19:00: [address] sacubitril- Yes Take by Un jenn[facility] valsartan 7-10 mouth 2 ity of (ENTRESTO) 19:00: (two) [place] 24-26 mg 17 times Medical Tab daily. Branch furosemide Yes 80mg Take 80 mg U nivers (LASIX) 80 7-10 by mouth ity o f mg tablet 19:00: daily. [address] DIGOXIN Yes Take by Univer s ORAL 7-10 mouth. ity of 19:00: [address] ENALAPRIL Yes Take by Univ ers MALEATE 7-10 mouth. ity of ORAL 19:00: [address] sacubitril- Yes Take by [facility] valsartan 7-10 mouth 2 ity of (ENTRESTO) 19:00: (two) [place] 24-26 mg 17 times Medical Tab daily. Branch furosemide Yes 80mg Take 80 mg U nivers (LASIX) 80 7-10 by mouth ity o f mg tablet 19:00: daily. [address] DIGOXIN Yes Take by Univer s ORAL 7-10 mouth. ity of 19:00: [address] ENALAPRIL Yes Take by Univ ers MALEATE 7-10 mouth. ity of ORAL 19:00: [address] sacubitril- Yes Take by [facility] valsartan 7-10 mouth 2 ity of (ENTRESTO) 19:00: (two) [place] 24-26 mg 17 times Medical Tab daily. Branch furosemide Yes 80mg Take 80 mg U nivers (LASIX) 80 7-10 by mouth ity o f mg tablet 19:00: daily. [address] DIGOXIN 2018- Yes Take by Univer s ORAL 7-10 mouth. ity of 19:00: [address] ENALAPRIL 2018-0 Yes Take by Univ ers MALEATE 7-10 mouth. ity of ORAL 19:00: [address] Branch sacubitril- 0 Yes Take by [facility] valsartan 7-10 mouth 2 ity of (ENTRESTO) 19:00: (two) [place] 24-26 mg 17 times Medical Tab daily. Branch furosemide 2018-0 Yes 80mg Take 80 mg U nivers (LASIX) 80 7-10 by mouth ity o f mg tablet 19:00: daily. [place] [address] Medical Branch DIGOXIN 2018-0 Yes Take by Univer s ORAL 7-10 mouth. ity of 19:00: [address] Branch ENALAPRIL 0 Yes Take by [employer] [facility] MALEATE 7-10 mouth. ity of ORAL 19:00: [address] Branch sacubitril- Yes Take by Un [facility] valsartan 7-10 mouth 2 ity of (ENTRESTO) 19:00: (two) [place] 24-26 mg 17 times Medical Tab daily. Branch furosemide Yes 80mg Take 80 mg U nivers (LASIX) 80 7-10 by mouth ity o f mg tablet 19:00: daily. [address] DIGOXIN Yes Take by [employer] ORAL 7-10 mouth. ity of 19:00: [address] ENALAPRIL 2018-0 Yes Take by [employer] [facility] MALEATE 7-10 mouth. ity of ORAL 19:00: [address] sacubitril- Yes Take by [facility] valsartan 7-10 mouth 2 ity of (ENTRESTO) 19:00: (two) [place] 24-26 mg 17 times Medical Tab daily. Branch furosemide 0 Yes 80mg Take 80 mg U nivers (LASIX) 80 7-10 by mouth ity o f mg tablet 19:00: daily. [address] DIGOXIN 2018-0 Yes Take by [employer] ORAL 7-10 mouth. ity of 19:00: [address] Branch ENALAPRIL 2018-0 Yes Take by Univ ers MALEATE 7-10 mouth. ity of ORAL 19:00: [address] Branch sacubitril- 0 Yes Take by [facility] valsartan 7-10 mouth 2 ity of (ENTRESTO) 19:00: (two) [place] 24-26 mg 17 times Medical Tab daily. Branch furosemide Yes 80mg Take 80 mg U nivers (LASIX) 80 7-10 by mouth ity o f mg tablet 19:00: daily. [place] [address] Medical Branch DIGOXIN 0 Yes Take by Univer s ORAL 7-10 mouth. ity of 19:00: [address] ENALAPRIL Yes Take by Univ ers MALEATE 7-10 mouth. ity of ORAL 19:00: [address] Branch sacubitril- Yes Take by [facility] valsartan 7-10 mouth 2 ity of (ENTRESTO) 19:00: (two) [place] 24-26 mg 17 times Medical Tab daily. Branch furosemide Yes 80mg Take 80 mg U nivers (LASIX) 80 7-10 by mouth ity o f mg tablet 19:00: daily. [address] DIGOXIN Yes Take by [employer] ORAL 7-10 mouth. ity of 19:00: [address] ENALAPRIL Yes Take by [employer] [facility] MALEATE 7-10 mouth. ity of ORAL 19:00: [address] sacubitril- Yes Take by [facility] valsartan 7-10 mouth 2 ity of (ENTRESTO) 19:00: (two) [place] 24-26 mg 17 times Medical Tab daily. Branch furosemide Yes 80mg Take 80 mg U nivers (LASIX) 80 7-10 by mouth ity o f mg tablet 19:00: daily. [address] DIGOXIN Yes Take by Univer s ORAL 7-10 mouth. ity of 19:00: [address] ENALAPRIL Yes Take by [employer] [facility] MALEATE 7-10 mouth. ity of ORAL 19:00: [address] sacubitril- Yes Take by [facility] valsartan 7-10 mouth 2 ity of (ENTRESTO) 19:00: (two) [place] 24-26 mg 17 times Medical Tab daily. Branch furosemide Yes 80mg Take 80 mg U nivers (LASIX) 80 7-10 by mouth ity o f mg tablet 19:00: daily. [address] DIGOXIN 0 Yes Take by Univer s ORAL 7-10 mouth. ity of 19:00: [place] [address] Medical Branch ENALAPRIL 2018-0 Yes Take by Univ ers MALEATE 7-10 mouth. ity of ORAL 19:00: [place] [address] Medical Branch sacubitril- Yes Take by [facility] valsartan 7-10 mouth 2 ity of (ENTRESTO) 19:00: (two) [place] 24-26 mg 17 times Medical Tab daily. Branch furosemide 2018-0 Yes 80mg Take 80 mg [facility] (LASIX) 80 7-10 by mouth ity o f mg tablet 19:00: daily. [address] Branch DIGOXIN Yes Take by [employer] ORAL 7-10 mouth. ity of 19:00: [address] Branch ENALAPRIL Yes Take by Univ ers MALEATE 7-10 mouth. ity of ORAL 19:00: [address] sacubitril- Yes Take by Un jennifer valsartan 7-10 mouth 2 ity of (ENTRESTO) 19:00: (two) [place] 24-26 mg 17 times Medical Tab daily. Branch furosemide Yes 80mg Take 80 mg [facility] (LASIX) 80 7-10 by mouth ity o f mg tablet 19:00: daily. [address] DIGOXIN 2018- Yes Take by [employer] ORAL 7-10 mouth. ity of 19:00: [address] ENALAPRIL 2018-0 Yes Take by Univ ers MALEATE 7-10 mouth. ity of ORAL 19:00: [place] [address] Medical Branch sacubitril- Yes Take by Un jennifer valsartan 7-10 mouth 2 ity of (ENTRESTO) 19:00: (two) [place] 24-26 mg 17 times Medical Tab daily. Branch furosemide 2018-0 Yes 80mg Take 80 mg [facility] (LASIX) 80 7-10 by mouth ity o f mg tablet 19:00: daily. [place] [address] [facility] [place] DIGOXIN 2018-0 Yes Take by Univer s ORAL 7-10 mouth. ity of 19:00: [address] Branch ENALAPRIL 2018-0 Yes Take by Univ ers MALEATE 7-10 mouth. ity of ORAL 19:00: [place] [address] Medical Branch sacubitril- Yes Take by Un jennifer valsartan 7-10 mouth 2 ity of (ENTRESTO) 19:00: (two) [place] 24-26 mg 17 times Medical Tab daily. Branch furosemide Yes 80mg Take 80 mg [facility] (LASIX) 80 7-10 by mouth ity o f mg tablet 19:00: daily. [address] DIGOXIN 0 Yes Take by Univer s ORAL 7-10 mouth. ity of 19:00: [address] ENALAPRIL Yes Take by Univ ers MALEATE 7-10 mouth. ity of ORAL 19:00: [address] sacubitril- Yes Take by Un jennifer valsartan 7-10 mouth 2 ity of (ENTRESTO) 19:00: (two) [place] 24-26 mg 17 times Medical Tab daily. Branch furosemide Yes 80mg Take 80 mg [facility]ivers (LASIX) 80 7-10 by mouth ity o f mg tablet 19:00: daily. [address] DIGOXIN Yes Take by Univer s ORAL 7-10 mouth. ity of 19:00: [address] ENALAPRIL Yes Take by Univ ers MALEATE 7-10 mouth. ity of ORAL 19:00: [address] sacubitril- Yes Take by Un jennifer valsartan 7-10 mouth 2 ity of (ENTRESTO) 19:00: (two) [place] 24-26 mg 17 times Medical Tab daily. Branch furosemide Yes 80mg Take 80 mg [facility] (LASIX) 80 7-10 by mouth ity o f mg tablet 19:00: daily. [address] DIGOXIN Yes Take by Univer s ORAL 7-10 mouth. ity of 19:00: [address] ENALAPRIL 2018- Yes Take by Univ ers MALEATE 7-10 mouth. ity of ORAL 19:00: [address] sacubitril- 0 Yes Take by Un jennifer valsartan 7-10 mouth 2 ity of (ENTRESTO) 19:00: (two) [place] 24-26 mg 17 times Medical Tab daily. Branch furosemide Yes 80mg Take 80 mg [facility] (LASIX) 80 7-10 by mouth ity o f mg tablet 19:00: daily. [address] Branch DIGOXIN 2018-0 Yes Take by Univer s ORAL 7-10 mouth. ity of 19:00: [address] Branch ENALAPRIL 2018-0 Yes Take by Univ ers MALEATE 7-10 mouth. ity of ORAL 19:00: [address] sacubitril- Yes Take by Un jennifer valsartan 7-10 mouth 2 ity of (ENTRESTO) 19:00: (two) [place] 24-26 mg 17 times Medical Tab daily. Branch furosemide Yes 80mg Take 80 mg [facility] (LASIX) 80 7-10 by mouth ity o f mg tablet 19:00: daily. [place] [address] [facility] [place] DIGOXIN Yes Take by Univer s ORAL 7-10 mouth. ity of 19:00: [address] ENALAPRIL Yes Take by Univ ers MALEATE 7-10 mouth. ity of ORAL 19:00: [address] sacubitril- Yes Take by Un jennifer valsartan 7-10 mouth 2 ity of (ENTRESTO) 19:00: (two) [place] 24-26 mg 17 times Medical Tab daily. Branch furosemide Yes 80mg Take 80 mg [facility] (LASIX) 80 7-10 by mouth ity o f mg tablet 19:00: daily. [address] DIGOXIN Yes Take by [employer] ORAL 7-10 mouth. ity of 19:00: [address] ENALAPRIL Yes Take by Univ ers MALEATE 7-10 mouth. ity of ORAL 19:00: [address] sacubitril- Yes Take by Un jennifer valsartan 7-10 mouth 2 ity of (ENTRESTO) 19:00: (two) [place] 24-26 mg 17 times Medical Tab daily. Branch furosemide Yes 80mg Take 80 mg [facility]ivers (LASIX) 80 7-10 by mouth ity o f mg tablet 19:00: daily. [address] DIGOXIN 2018-0 Yes Take by Univer s ORAL 7-10 mouth. ity of 19:00: [address] ENALAPRIL 2018-0 Yes Take by Univ ers MALEATE 7-10 mouth. ity of ORAL 19:00: [address] Branch sacubitril- 0 Yes Take by Un jennifer valsartan 7-10 mouth 2 ity of (ENTRESTO) 19:00: (two) [place] 24-26 mg 17 times Medical Tab daily. Branch furosemide 2018-0 Yes 80mg Take 80 mg [facility] (LASIX) 80 7-10 by mouth ity o f mg tablet 19:00: daily. [address] Branch DIGOXIN 2018-0 Yes Take by Univer s ORAL 7-10 mouth. ity of 19:00: [address] Branch ENALAPRIL 0 Yes Take by Univ ers MALEATE 7-10 mouth. ity of ORAL 19:00: [address] sacubitril- Yes Take by Un jennifer valsartan 7-10 mouth 2 ity of (ENTRESTO) 19:00: (two) [place] 24-26 mg 17 times Medical Tab daily. Branch furosemide Yes 80mg Take 80 mg [facility] (LASIX) 80 7-10 by mouth ity o f mg tablet 19:00: daily. [address] DIGOXIN Yes Take by [employer] ORAL 7-10 mouth. ity of 19:00: [address] ENALAPRIL 2018-0 Yes Take by [employer] [facility] MALEATE 7-10 mouth. ity of ORAL 19:00: [address] sacubitril- Yes Take by Un jennifer valsartan 7-10 mouth 2 ity of (ENTRESTO) 19:00: (two) [place] 24-26 mg 17 times Medical Tab daily. Branch furosemide 0 Yes 80mg Take 80 mg [facility] (LASIX) 80 7-10 by mouth ity o f mg tablet 19:00: daily. [address] DIGOXIN 2018-0 Yes Take by Univer s ORAL 7-10 mouth. ity of 19:00: [address] ENALAPRIL 2018-0 Yes Take by Univ ers MALEATE 7-10 mouth. ity of ORAL 19:00: [address] sacubitril- Yes Take by Un jennifer valsartan 7-10 mouth 2 ity of (ENTRESTO) 19:00: (two) [place] 24-26 mg 17 times Medical Tab daily. Branch furosemide Yes 80mg Take 80 mg [facility] (LASIX) 80 7-10 by mouth ity o f mg tablet 19:00: daily. [place] [address] Medical Branch DIGOXIN Yes Take by Univer s ORAL 7-10 mouth. ity of 19:00: [address] ENALAPRIL Yes Take by Univ ers MALEATE 7-10 mouth. ity of ORAL 19:00: [address] Branch sacubitril- Yes Take by Un jennifer valsartan 7-10 mouth 2 ity of (ENTRESTO) 19:00: (two) [place] 24-26 mg 17 times Medical Tab daily. Branch furosemide Yes 80mg Take 80 mg [facility] (LASIX) 80 7-10 by mouth ity o f mg tablet 19:00: daily. [address] DIGOXIN Yes Take by [employer] ORAL 7-10 mouth. ity of 19:00: [address] ENALAPRIL Yes Take by [employer] [facility] MALEATE 7-10 mouth. ity of ORAL 19:00: [address] sacubitril- Yes Take by Un jenn[facility] valsartan 7-10 mouth 2 ity of (ENTRESTO) 19:00: (two) [place] 24-26 mg 17 times Medical Tab daily. Branch furosemide Yes 80mg Take 80 mg [facility] (LASIX) 80 7-10 by mouth ity o f mg tablet 19:00: daily. [address] DIGOXIN Yes Take by Univer s ORAL 7-10 mouth. ity of 19:00: [address] ENALAPRIL Yes Take by Univ ers MALEATE 7-10 mouth. ity of ORAL 19:00: [address] sacubitril- Yes Take by Un jennifer valsartan 7-10 mouth 2 ity of (ENTRESTO) 19:00: (two) [place] 24-26 mg 17 times Medical Tab daily. Branch furosemide Yes 80mg Take 80 mg [facility]ivers (LASIX) 80 7-10 by mouth ity o f mg tablet 19:00: daily. [address] DIGOXIN Yes Take by Univer s ORAL 7-10 mouth. ity of 19:00: [place] [address] Medical Branch ENALAPRIL 2018-0 Yes Take by [facility] ers MALEATE 7-10 mouth. ity of ORAL 19:00: [place] [address] Medical Branch sacubitril- Yes Take by Un jenn[facility] valsartan 7-10 mouth 2 ity of (ENTRESTO) 19:00: (two) [place] 24-26 mg 17 times Medical Tab daily. Branch furosemide 2018-0 Yes 80mg Take 80 mg [facility] (LASIX) 80 7-10 by mouth ity o f mg tablet 19:00: daily. [place] [address] Medical Branch DIGOXIN 0 Yes Take by Univer s ORAL 7-10 mouth. ity of 19:00: [address] Branch ENALAPRIL Yes Take by [facility] ers MALEATE 7-10 mouth. ity of ORAL 19:00: [address] Branch sacubitril- Yes Take by Un jennifer valsartan 7-10 mouth 2 ity of (ENTRESTO) 19:00: (two) [place] 24-26 mg 17 times Medical Tab daily. Branch furosemide Yes 80mg Take 80 mg [facility] (LASIX) 80 7-10 by mouth ity o f mg tablet 19:00: daily. [place] [address] [facility] [place] DIGOXIN 2018-0 Yes Take by Univer s ORAL 7-10 mouth. ity of 19:00: [place] [address] [facility] [place] ENALAPRIL 2018-0 Yes Take by [facility] ers MALEATE 7-10 mouth. ity of ORAL 19:00: [place] [address] Medical Branch sacubitril- Yes Take by Un jennifer valsartan 7-10 mouth 2 ity of (ENTRESTO) 19:00: (two) [place] 24-26 mg 17 times Medical Tab daily. Branch furosemide 2018-0 Yes 80mg Take 80 mg [facility] (LASIX) 80 7-10 by mouth ity o f mg tablet 19:00: daily. [place] [address] Medical Branch DIGOXIN 2018-0 Yes Take by Univer s ORAL 7-10 mouth. ity of 19:00: [place] [address] Medical Branch ENALAPRIL 2018-0 Yes Take by [facility] ers MALEATE 7-10 mouth. ity of ORAL 19:00: [place] [address] Medical Branch sacubitril- Yes Take by Un jennifer valsartan 7-10 mouth 2 ity of (ENTRESTO) 19:00: (two) [place] 24-26 mg 17 times Medical Tab daily. Branch furosemide Yes 80mg Take 80 mg [facility]ivers (LASIX) 80 7-10 by mouth ity o f mg tablet 19:00: daily. [address] DIGOXIN 0 Yes Take by Univer s ORAL 7-10 mouth. ity of 19:00: [address] ENALAPRIL Yes Take by [facility] ers MALEATE 7-10 mouth. ity of ORAL 19:00: [address] sacubitril- Yes Take by Un jennifer valsartan 7-10 mouth 2 ity of (ENTRESTO) 19:00: (two) [place] 24-26 mg 17 times Medical Tab daily. Branch furosemide Yes 80mg Take 80 mg [facility]ivers (LASIX) 80 7-10 by mouth ity o f mg tablet 19:00: daily. [address] DIGOXIN Yes Take by Univer s ORAL 7-10 mouth. ity of 19:00: [address] ENALAPRIL Yes Take by [facility] ers MALEATE 7-10 mouth. ity of ORAL 19:00: [address] sacubitril- Yes Take by Un jenn[facility] valsartan 7-10 mouth 2 ity of (ENTRESTO) 19:00: (two) [place] 24-26 mg 17 times Medical Tab daily. Branch furosemide Yes 80mg Take 80 mg [facility]ivers (LASIX) 80 7-10 by mouth ity o f mg tablet 19:00: daily. [address] DIGOXIN Yes Take by Univer s ORAL 7-10 mouth. ity of 19:00: [address] ENALAPRIL 2018- Yes Take by [facility] ers MALEATE 7-10 mouth. ity of ORAL 19:00: [address] sacubitril- Yes Take by Un jennifer valsartan 7-10 mouth 2 ity of (ENTRESTO) 19:00: (two) [place] 24-26 mg 17 times Medical Tab daily. Branch furosemide Yes 80mg Take 80 mg [facility]ivers (LASIX) 80 7-10 by mouth ity o f mg tablet 19:00: daily. [place] [address] Medical Branch DIGOXIN 2018-0 Yes Take by [employer] ORAL 7-10 mouth. ity of 19:00: [address] Branch ENALAPRIL 2018-0 Yes Take by [facility] ers MALEATE 7-10 mouth. ity of ORAL 19:00: [address] sacubitril- Yes Take by Un jennifer valsartan 7-10 mouth 2 ity of (ENTRESTO) 19:00: (two) [place] 24-26 mg 17 times Medical Tab daily. Branch furosemide Yes 80mg Take 80 mg [facility]ivers (LASIX) 80 7-10 by mouth ity o f mg tablet 19:00: daily. [place] [address] [facility] [place] DIGOXIN Yes Take by Univer s ORAL 7-10 mouth. ity of 19:00: [address] ENALAPRIL Yes Take by [facility] ers MALEATE 7-10 mouth. ity of ORAL 19:00: [address] sacubitril- Yes Take by Un jennifer valsartan 7-10 mouth 2 ity of (ENTRESTO) 19:00: (two) [place] 24-26 mg 17 times Medical Tab daily. Branch furosemide Yes 80mg Take 80 mg [facility] (LASIX) 80 7-10 by mouth ity o f mg tablet 19:00: daily. [address] DIGOXIN Yes Take by [employer] ORAL 7-10 mouth. ity of 19:00: [address] ENALAPRIL 2018- Yes Take by [facility] MALEATE 7-10 mouth. ity of ORAL 19:00: [address] sacubitril- Yes Take by Un jenn[facility] valsartan 7-10 mouth 2 ity of (ENTRESTO) 19:00: (two) [place] 24-26 mg 17 times Medical Tab daily. Branch furosemide 2018-0 Yes 80mg Take 80 mg [facility]ivers (LASIX) 80 7-10 by mouth ity o f mg tablet 19:00: daily. [address] DIGOXIN 2018-0 Yes Take by Univer s ORAL 7-10 mouth. ity of 19:00: [address] ENALAPRIL 2018-0 Yes Take by [facility] ers MALEATE 7-10 mouth. ity of ORAL 19:00: [address] Branch sacubitril- 2018-0 Yes Take by Un jenn[facility] valsartan 7-10 mouth 2 ity of (ENTRESTO) 19:00: (two) [place] 24-26 mg 17 times Medical Tab daily. Branch furosemide 2019-0 Yes 80mg Take 80 mg [facility]ivers (LASIX) 80 7-10 by mouth ity o f mg tablet 19:00: daily. [address] furosemide 2018-0 Yes 80mg Take 80 mg [facility] (LASIX) 80 7-10 by mouth ity o f mg tablet 14:00: daily. [address] DIGOXIN 2018-0 Yes Take by Univer s ORAL 7-10 mouth. ity of 14:00: [address] ENALAPRIL 2018-0 Yes Take by [facility] ers MALEATE 7-10 mouth. ity of ORAL 14:00: [address] sacubitril- Yes Take by Un jenn[facility] valsartan 7-10 mouth 2 ity of (ENTRESTO) 14:00: (two) [place] 24-26 mg 17 times Medical Tab daily. Branch furosemide 2018-0 Yes 80mg Take 80 mg [facility]ivers (LASIX) 80 7-10 by mouth ity o f mg tablet 14:00: daily. [address] DIGOXIN 2018-0 Yes Take by Univer s ORAL 7-10 mouth. ity of 14:00: [address] ENALAPRIL 2018-0 Yes Take by [facility] ers MALEATE 7-10 mouth. ity of ORAL 14:00: [address] sacubitril- 2018-0 Yes Take by Un jenn[facility] valsartan 7-10 mouth 2 ity of (ENTRESTO) 14:00: (two) [place] 24-26 mg 17 times Medical Tab daily. Branch furosemide 2019-0 Yes 80mg Take 80 mg [facility]ivers (LASIX) 80 7-10 by mouth ity o f mg tablet 14:00: daily. [address] DIGOXIN 2018-0 Yes Take by Univer s ORAL 7-10 mouth. ity of 14:00: [address] ENALAPRIL 2019-0 Yes Take by [facility] ers MALEATE 7-10 mouth. ity of ORAL 14:00: [address] sacubitril- 2019-0 Yes Take by Un [facility]enn[facility] valsartan 7-10 mouth 2 ity of (ENTRESTO) 14:00: (two) [place] 24-26 mg 17 times Medical Tab daily. Branch furosemide Yes 80mg Take 80 mg [facility]ivers (LASIX) 80 7-10 by mouth ity o f mg tablet 14:00: daily. [address] Branch DIGOXIN Yes Take by Univer s ORAL 7-10 mouth. ity of 14:00: [place] [address] Medical Branch ENALAPRIL Yes Take by [facility] ers MALEATE 7-10 mouth. ity of ORAL 14:00: [place] [address] Medical Branch sacubitril- Yes Take by Un jennifer valsartan 7-10 mouth 2 ity of (ENTRESTO) 14:00: (two) [place] 24-26 mg 17 times Medical Tab daily. Branch furosemide Yes 80mg Take 80 mg [facility] nivers (LASIX) 80 7-10 by mouth ity o f mg tablet 14:00: daily. [address] DIGOXIN Yes Take by Univer s ORAL 7-10 mouth. ity of 14:00: [address] Branch ENALAPRIL Yes Take by [facility] ers MALEATE 7-10 mouth. ity of ORAL 14:00: [address] Branch sacubitril- Yes Take by Un jennifer valsartan 7-10 mouth 2 ity of (ENTRESTO) 14:00: (two) [place] 24-26 mg 17 times Medical Tab daily. Branch ALPRAZolam Yes [id number] TAKE 1 U nivers 2 mg tablet 7-10 TABLET BY ity of 00:00: MOUTH [place] 00 THREE Medical TIMES Branch DAILY NEEDED FOR SLEEP sulfamethox 2018- Yes [id number] 1{tbl} Take 1 [facility] azole-trime 7-10 tablet by ity of thoprim 00:00: mouth 2 [place] (BACTRIM) 00 (two) Medical 400-80 mg times Branch per tablet daily. sulfamethox 2019- Yes [id number] 1{tbl} Take 1 [facility] azole-trime 7-10 tablet by ity of thoprim 00:00: mouth 2 [place] (BACTRIM) 00 (two) Medical 400-80 mg times Branch per tablet daily. sulfamethox Yes [id number] 1{tbl} Take 1 [facility] azole-trime 7-10 tablet by ity of thoprim 00:00: mouth 2 [place] (BACTRIM) 00 (two) Medical 400-80 mg times Branch per tablet daily. sulfamethox Yes [id number] 1{tbl} Take 1 [facility] azole-trime 7-10 tablet by ity of thoprim 00:00: mouth 2 [place] (BACTRIM) 00 (two) Medical 400-80 mg times Branch per tablet daily. sulfamethox Yes [id number] 1{tbl} Take 1 [facility] azole-trime 7-10 tablet by ity of thoprim 00:00: mouth 2 [place] (BACTRIM) 00 (two) Medical 400-80 mg times Branch per tablet daily. sulfamethox Yes [id number] 1{tbl} Take 1 [facility] azole-trime 7-10 tablet by ity of thoprim 00:00: mouth 2 [place] (BACTRIM) 00 (two) Medical 400-80 mg times Branch per tablet daily. sulfamethox Yes [id number] 1{tbl} Take 1 [facility] azole-trime 7-10 tablet by ity of thoprim 00:00: mouth 2 [place] (BACTRIM) 00 (two) Medical 400-80 mg times Branch per tablet daily. sulfamethox Yes [id number] 1{tbl} Take 1 [facility] azole-trime 7-10 tablet by ity of thoprim 00:00: mouth 2 [place] (BACTRIM) 00 (two) Medical 400-80 mg times Branch per tablet daily. sulfamethox Yes [id number] 1{tbl} Take 1 [facility] azole-trime 7-10 tablet by ity of thoprim 00:00: mouth 2 [place] (BACTRIM) 00 (two) Medical 400-80 mg times Branch per tablet daily. sulfamethox 2019 Yes [id number] 1{tbl} Take 1 [facility] azole-trime 7-10 tablet by ity of thoprim 00:00: mouth 2 [place] (BACTRIM) 00 (two) Medical 400-80 mg times Branch per tablet daily. sulfamethox 2020- No [id number] 1{tbl} Take 1 [facility] azole-trime 7-10 10-29 tablet by it y of thoprim 00:00: 00:00 mouth 2 [place] (BACTRIM) 00 :00 (two) Medical 400-80 mg times Branch per tablet daily. sulfamethox 2020- No [id number] 1{tbl} Take 1 [facility] azole-trime 7-10 10-29 tablet by it y of thoprim 00:00: 00:00 mouth 2 [place] (BACTRIM) 00 :00 (two) Medical 400-80 mg times Branch per tablet daily. sulfamethox 2019- No [id number] 1{tbl} Take 1 [facility] azole-trime 7-10 10-29 tablet by it y of thoprim 00:00: 00:00 mouth 2 [place] (BACTRIM) 00 :00 (two) Medical 400-80 mg times Branch per tablet daily. sulfamethox 2019- No [id number] 1{tbl} Take 1 [facility] azole-trime 7-10 10-29 tablet by it y of thoprim 00:00: 00:00 mouth 2 [place] (BACTRIM) 00 :00 (two) Medical 400-80 mg times Branch per tablet daily. dicyclomine 2019 Yes Abdominal 20mg Take 1 [facility] (BENTYL) 20 5-07 pain, tablet by it y of mg tablet 00:00: unspecified mouth 4 [place] 00 abdominal (four) Medical location times Branch daily. dicyclomine 2019- Yes [id number] 20mg Take 1 [facility] (BENTYL) 20 5-07 tablet by ity of mg tablet 00:00: mouth 4 [place] 00 (four) Medical times Branch daily. dicyclomine 2019-0 Yes [id number] 20mg Take 1 [facility] (BENTYL) 20 5-07 tablet by ity of mg tablet 00:00: mouth 4 [place] 00 (four) Medical times Branch daily. dicyclomine 2019-0 Yes [id number] 20mg Take 1 Univers (BENTYL) 20 5-07 tablet by ity of mg tablet 00:00: mouth 4 [place] 00 (four) Medical times Branch daily. dicyclomine 2019- Yes [id number] 20mg Take 1 [facility] (BENTYL) 20 5-07 tablet by ity of mg tablet 00:00: mouth 4 [place] 00 (four) Medical times Branch daily. dicyclomine 2019-0 Yes [id number] 20mg Take 1 Univers (BENTYL) 20 5-07 tablet by ity of mg tablet 00:00: mouth [place] ([facility]) Medical times Branch daily. dicyclomine 2019-0 Yes [id number] 20mg Take 1 Univers (BENTYL) 20 5-07 tablet by ity of mg tablet 00:00: mouth ([facility]) Medical times Branch daily. dicyclomine 2019-0 Yes [id number] 20mg Take 1 [facility] (BENTYL) 20 5-07 tablet by ity of mg tablet 00:00: mouth ([facility]) Medical times Branch daily. dicyclomine 2019-0 Yes [id number] 20mg Take 1 Univers (BENTYL) 20 5-07 tablet by ity of mg tablet 00:00: mouth [place] ([facility]) Medical times Branch daily. dicyclomine 2019-0 Yes [id number] 20mg Take 1 Univers (BENTYL) 20 5-07 tablet by ity of mg tablet 00:00: mouth [place] ([facility]) Medical times Branch daily. dicyclomine 2019-0 Yes [id number] 20mg Take 1 Univers (BENTYL) 20 5-07 tablet by ity of mg tablet 00:00: mouth [place] ([facility]) Medical times Branch daily. dicyclomine 2019-0 Yes [id number] 20mg Take 1 Univers (BENTYL) 20 5-07 tablet by ity of mg tablet 00:00: mouth [place] ([facility]) Medical times Branch daily. dicyclomine 2019-0 Yes [id number] 20mg Take 1 Univers (BENTYL) 20 5-07 tablet by ity of mg tablet 00:00: mouth [place] ([facility]) Medical times Branch daily. dicyclomine 2019-0 Yes [id number] 20mg Take 1 Univers (BENTYL) 20 5-07 tablet by ity of mg tablet 00:00: mouth [place] ([facility]) Medical times Branch daily. dicyclomine 2019-0 Yes [id number] 20mg Take 1 Univers (BENTYL) 20 5-07 tablet by ity of mg tablet 00:00: mouth [place] ([facility]) Medical times Branch daily. dicyclomine 2019-0 Yes [id number] 20mg Take 1 Univers (BENTYL) 20 5-07 tablet by ity of mg tablet 00:00: mouth ([facility]) Medical times Branch daily. dicyclomine 2019-0 Yes [id number] 20mg Take 1 Univers (BENTYL) 20 5-07 tablet by ity of mg tablet 00:00: mouth [place] ([facility]) Medical times Branch daily. dicyclomine 2019-0 Yes [id number] 20mg Take 1 Univers (BENTYL) 20 5-07 tablet by ity of mg tablet 00:00: mouth [place] ([facility]) Medical times Branch daily. dicyclomine 2019-0 Yes [id number] 20mg Take 1 Univers (BENTYL) 20 5-07 tablet by ity of mg tablet 00:00: mouth [place] ([facility]) Medical times Branch daily. dicyclomine 2019-0 Yes [id number] 20mg Take 1 [facility] (BENTYL) 20 5-07 tablet by ity of mg tablet 00:00: mouth [place] ([facility]) Medical times Branch daily. dicyclomine 2019-0 Yes [id number] 20mg Take 1 [facility] (BENTYL) 20 5-07 tablet by ity of mg tablet 00:00: mouth [place] ([facility]) Medical times Branch daily. dicyclomine 2019-0 Yes [id number] 20mg Take 1 [facility] (BENTYL) 20 5-07 tablet by ity of mg tablet 00:00: mouth [place] ([facility]) Medical times Branch daily. dicyclomine 2019-0 Yes [id number] 20mg Take 1 [facility] (BENTYL) 20 5-07 tablet by ity of mg tablet 00:00: mouth [place] ([facility]) Medical times Branch daily. dicyclomine 2019-0 Yes [id number] 20mg Take 1 [facility] (BENTYL) 20 5-07 tablet by ity of mg tablet 00:00: mouth [place] ([facility]) Medical times Branch daily. dicyclomine 2019-0 Yes [id number] 20mg Take 1 [facility] (BENTYL) 20 5-07 tablet by ity of mg tablet 00:00: mouth [place] ([facility]) Medical times Branch daily. dicyclomine 2019-0 Yes [id number] 20mg Take 1 [facility] (BENTYL) 20 5-07 tablet by ity of mg tablet 00:00: mouth [place] ([facility]) Medical times Branch daily. dicyclomine 2019-0 Yes [id number] 20mg Take 1 [facility] (BENTYL) 20 5-07 tablet by ity of mg tablet 00:00: mouth ([facility]) Medical times Branch daily. dicyclomine 2019-0 Yes [id number] 20mg Take 1 [facility] (BENTYL) 20 5-07 tablet by ity of mg tablet 00:00: mouth (four) Medical times Branch daily. dicyclomine 2019-0 Yes [id number] 20mg Take 1 [facility] (BENTYL) 20 5-07 tablet by ity of mg tablet 00:00: mouth (four) Medical times Branch daily. dicyclomine 2019-0 Yes [id number] 20mg Take 1 [facility] (BENTYL) 20 5-07 tablet by ity of mg tablet 00:00: mouth ([facility]) Medical times Branch daily. dicyclomine 2019-0 Yes [id number] 20mg Take 1 [facility] (BENTYL) 20 5-07 tablet by ity of mg tablet 00:00: mouth ([facility]) Medical times Branch daily. dicyclomine 2019-0 Yes [id number] 20mg Take 1 [facility] (BENTYL) 20 5-07 tablet by ity of mg tablet 00:00: mouth ([facility]) Medical times Branch daily. dicyclomine 2019-0 Yes [id number] 20mg Take 1 [facility] (BENTYL) 20 5-07 tablet by ity of mg tablet 00:00: mouth ([facility]) Medical times Branch daily. dicyclomine 2019-0 Yes [id number] 20mg Take 1 [facility] (BENTYL) 20 5-07 tablet by ity of mg tablet 00:00: mouth ([facility]) Medical times Branch daily. dicyclomine 2019-0 Yes [id number] 20mg Take 1 [facility] (BENTYL) 20 5-07 tablet by ity of mg tablet 00:00: mouth ([facility]) Medical times Branch daily. dicyclomine 2019-0 Yes [id number] 20mg Take 1 [facility] (BENTYL) 20 5-07 tablet by ity of mg tablet 00:00: mouth ([facility]) Medical times Branch daily. dicyclomine 2019-0 Yes [id number] 20mg Take 1 [facility] (BENTYL) 20 5-07 tablet by ity of mg tablet 00:00: mouth ([facility]) Medical times Branch daily. dicyclomine 2019-0 Yes [id number] 20mg Take 1 [facility] (BENTYL) 20 5-07 tablet by ity of mg tablet 00:00: mouth ([facility]) Medical times Branch daily. dicyclomine 2019-0 Yes [id number] 20mg Take 1 Univers (BENTYL) 20 5-07 tablet by ity of mg tablet 00:00: [place] ([facility]) Medical times Branch daily. dicyclomine 2019-0 Yes [id number] 20mg Take 1 Univers (BENTYL) 20 5-07 tablet by ity of mg tablet 00:00: [place] ([facility]) Medical times Branch daily. dicyclomine 2019-0 Yes [id number] 20mg Take 1 Univers (BENTYL) 20 5-07 tablet by ity of mg tablet 00:00: [place] ([facility]) Medical times Branch daily. dicyclomine 2019-0 Yes [id number] 20mg Take 1 Univers (BENTYL) 20 5-07 tablet by ity of mg tablet 00:00: [place] ([facility]) Medical times Branch daily. dicyclomine 2018-0 Yes [id number] 20mg Take 1 Univers (BENTYL) 20 5-07 tablet by ity of mg tablet 00:00: mouth [place] ([facility]) Medical times Branch daily. dicyclomine 2019-0 Yes [id number] 20mg Take 1 Univers (BENTYL) 20 5-07 tablet by ity of mg tablet 00:00: mouth [place] ([facility]) Medical times Branch daily. dicyclomine 2019-0 Yes [id number] 20mg Take 1 Univers (BENTYL) 20 5-07 tablet by ity of mg tablet 00:00: mouth [place] ([facility]) Medical times Branch daily. dicyclomine 2019-0 Yes [id number] 20mg Take 1 Univers (BENTYL) 20 5-07 tablet by ity of mg tablet 00:00: mouth [place] ([facility]) Medical times Branch daily. dicyclomine 2019-0 Yes [id number] 20mg Take 1 Univers (BENTYL) 20 5-07 tablet by ity of mg tablet 00:00: mouth [place] ([facility]) Medical times Branch daily. dicyclomine 2019-0 Yes [id number] 20mg Take 1 Univers (BENTYL) 20 5-07 tablet by ity of mg tablet 00:00: [place]) Medical times Branch daily. dicyclomine 2018- Yes [id number] 20mg Take 1 Univers (BENTYL) 20 5-07 tablet by ity of mg tablet 00:00: [place]) Medical times Branch daily. dicyclomine 2018- Yes [id number] 20mg Take 1 Univers (BENTYL) 20 5-07 tablet by ity of mg tablet 00:00: [place] ([facility]) Medical times Branch daily. dicyclomine 2018- Yes [id number] 20mg Take 1 Univers (BENTYL) 20 5-07 tablet by ity of mg tablet 00:00: mouth [place] ([facility]) Medical times Branch daily. dicyclomine 2018- Yes [id number] 20mg Take 1 Univers (BENTYL) 20 5-07 tablet by ity of mg tablet 00:00: mouth [place] ([facility]) Medical times Branch daily. dicyclomine 2018- Yes [id number] 20mg Take 1 Univers (BENTYL) 20 5-07 tablet by ity of mg tablet 00:00: mouth [place] ([facility]) Medical times Branch daily. dicyclomine 2018- Yes [id number] 20mg Take 1 Univers (BENTYL) 20 5-07 tablet by ity of mg tablet 00:00: mouth [place] ([facility]) Medical times Branch daily. dicyclomine 2018- Yes [id number] 20mg Take 1 Univers (BENTYL) 20 5-07 tablet by ity of mg tablet 00:00: mouth [place] ([facility]) Medical times Branch daily. dicyclomine Yes [id number] 20mg Take 1 Univers (BENTYL) 20 5-07 tablet by ity of mg tablet 00:00: mouth [place] ([facility]) Medical times Branch daily. OMEGA 3 Yes None Univers ORAL 9-21 Entered ity of 20:48: [address] Branch OMEGA 3 Yes None Univers ORAL 9-21 Entered ity of 20:48: [address] Branch OMEGA 3 Yes None Univers ORAL 9-21 Entered ity of 20:48: [address] OMEGA 3 Yes None Univers ORAL 9-21 Entered ity of 20:48: [address] Branch OMEGA 3 Yes None Univers ORAL 9-21 Entered ity of 20:48: [address] OMEGA 3 2015- Yes None Univers ORAL 9-21 Entered ity of 20:48: [address] OMEGA 3 2015- Yes None Univers ORAL 9-21 Entered ity of 20:48: [address] OMEGA 3 2015- Yes None Univers ORAL 9-21 Entered ity of 20:48: [address] OMEGA 3 2015- Yes None Univers ORAL 9-21 Entered ity of 20:48: [address] OMEGA 3 2015- Yes None Univers ORAL 9-21 Entered ity of 20:48: [address] 3 2015- Yes None Univers ORAL 9-21 Entered ity of 20:48: [address] 3 2015- Yes None Univers ORAL 9-21 Entered ity of 20:48: [address] 3 2015- Yes None Univers ORAL 9-21 Entered ity of 20:48: [place] [id number] Yes None Univers ORAL 9-21 Entered ity of 20:48: [address] 3 2015- Yes None Univers ORAL 9-21 Entered ity of 20:48: [address] 3 2015- Yes None Univers ORAL 9-21 Entered ity of 20:48: [address] 3 2015- Yes None Univers ORAL 9-21 Entered ity of 20:48: [address] 3 2015- Yes None Univers ORAL 9-21 Entered ity of 20:48: [address] OMEGA 3 2015- Yes None Univers ORAL 9-21 Entered ity of 20:48: [address] OMEGA 3 2015- Yes None Univers ORAL 9-21 Entered ity of 20:48: [address] OMEGA 3 2015- Yes None Univers ORAL 9-21 Entered ity of 20:48: [address] OMEGA 3 2015- Yes None Univers ORAL 9-21 Entered ity of 20:48: [address] OMEGA 3 2015- Yes None Univers ORAL 9-21 Entered ity of 20:48: [address] OMEGA 3 2015- Yes None Univers ORAL 9-21 Entered ity of 20:48: [address] OMEGA 3 2015- Yes None Univers ORAL 9-21 Entered ity of 20:48: [address] OMEGA 3 Yes None Univers ORAL 9-21 Entered ity of 20:48: [address] OMEGA 3 Yes None Univers ORAL 9-21 Entered ity of 20:48: [address] OMEGA 3 Yes None Univers ORAL 9-21 Entered ity of 20:48: [address] OMEGA 3 Yes None Univers ORAL 9-21 Entered ity of 20:48: [address] OMEGA 3 Yes None Univers ORAL 9-21 Entered ity of 20:48: [address] OMEGA 3 Yes None Univers ORAL 9-21 Entered ity of 20:48: [address] OMEGA 3 Yes None Univers ORAL 9-21 Entered ity of 20:48: [address] OMEGA 3 Yes None Univers ORAL 9-21 Entered ity of 20:48: [address] OMEGA 3 Yes None Univers ORAL 9-21 Entered ity of 20:48: [address] 3 Yes None Univers ORAL 9-21 Entered ity of 20:48: [address] OMEGA 3 Yes None Univers ORAL 9-21 Entered ity of 20:48: [address] OMEGA 3 Yes None Univers ORAL 9-21 Entered ity of 20:48: [address] OMEGA 3 Yes None Univers ORAL 9-21 Entered ity of 20:48: [address] OMEGA 3 Yes None Univers ORAL 9-21 Entered ity of 20:48: [address] OMEGA 3 Yes None Univers ORAL 9-21 Entered ity of 20:48: [address] OMEGA 3 Yes None Univers ORAL 9-21 Entered ity of 20:48: [address] OMEGA 3 Yes None Univers ORAL 9-21 Entered ity of 20:48: [address] OMEGA 3 Yes None Univers ORAL 9-21 Entered ity of 20:48: [address] OMEGA 3 Yes None Univers ORAL 9-21 Entered ity of 20:48: [address] OMEGA 3 Yes None Univers ORAL 9-21 Entered ity of 20:48: [address] OMEGA 3 2015- Yes None Univers ORAL 9-21 Entered ity of 20:48: [address] OMEGA 3 Yes None Univers ORAL 9-21 Entered ity of 20:48: [address] OMEGA 3 Yes None Univers ORAL 9-21 Entered ity of 20:48: [address] OMEGA 3 Yes None Univers ORAL 9-21 Entered ity of 20:48: [address] OMEGA 3 Yes None Univers ORAL 9-21 Entered ity of 20:48: [address] OMEGA 3 Yes None Univers ORAL 9-21 Entered ity of 20:48: [address] OMEGA 3 Yes None Univers ORAL 9-21 Entered ity of 15:48: [address] OMEGA 3 Yes None Univers ORAL 9-21 Entered ity of 15:48: [address] OMEGA 3 Yes None Univers ORAL 9-21 Entered ity of 15:48: [address] OMEGA 3 Yes None Univers ORAL 9-21 Entered ity of 15:48: [address] OMEGA 3 Yes None Univers ORAL 9-21 Entered ity of 15:48: [address] PROPOXYPHEN 2006-08 Yes 1 Cap Oral Univers E 65 MG 08-21 Q4HPRN ity of ORAL CAP 00:00: [address] PROPOXYPHEN 2006-08 Yes 1 Cap Oral Univers E 65 MG 08-21 Q4HPRN ity of ORAL CAP 00:00: [address] PROPOXYPHEN 2006-08 Yes 1 Cap Oral Univers E 65 MG 08-21 Q4HPRN ity of ORAL CAP 00:00: [address] PROPOXYPHEN 2006- Yes 1 Cap Oral Univers E 65 MG 08-21 Q4HPRN ity of ORAL CAP 00:00: [address] PROPOXYPHEN 2006-08 Yes 1 Cap Oral Univers E 65 MG 02 Q4HPRN ity of ORAL CAP 00:00: [address] PROPOXYPHEN 2006- Yes 1 Cap Oral Univers E 65 MG 08-21 Q4HPRN ity of ORAL CAP 00:00: [address] PROPOXYPHEN 2006-08 Yes 1 Cap Oral Univers E 65 MG 08-21 Q4HPRN ity of ORAL CAP 00:00: [address] PROPOXYPHEN 2006-08 Yes 1 Cap Oral Univers E 65 MG 08-21 Q4HPRN ity of ORAL CAP 00:00: [place] 00 [facility] PROPOXYPHEN 2006- Yes 1 Cap Oral Univers E 65 MG - Q4HPRN ity of ORAL CAP 00:00: [place] 00 [facility] PROPOXYPHEN 2006- Yes 1 Cap Oral Univers E 65 MG 08-21 Q4HPRN ity of ORAL CAP 00:00: [address] PROPOXYPHEN 2006- Yes 1 Cap Oral Univers E 65 MG 08-21 Q4HPRN ity of ORAL CAP 00:00: [address] PROPOXYPHEN 2006- Yes 1 Cap Oral Univers E 65 MG 08-21 Q4HPRN ity of ORAL CAP 00:00: [address] PROPOXYPHEN 2006- Yes 1 Cap Oral Univers E 65 MG 08-21 Q4HPRN ity of ORAL CAP 00:00: [address] PROPOXYPHEN 2006- Yes 1 Cap Oral Univers E 65 MG 08-21 Q4HPRN ity of ORAL CAP 00:00: [address] PROPOXYPHEN 2006- Yes 1 Cap Oral Univers E 65 MG 08-21 Q4HPRN ity of ORAL CAP 00:00: [place] 00 [facility] PROPOXYPHEN 2006- Yes 1 Cap Oral Univers E 65 MG 08-21 Q4HPRN ity of ORAL CAP 00:00: [place] 00 [facility] PROPOXYPHEN 2006- Yes 1 Cap Oral Univers E 65 MG 08-21 Q4HPRN ity of ORAL CAP 00:00: [address] PROPOXYPHEN 2006- Yes 1 Cap Oral Univers E 65 MG 08-21 Q4HPRN ity of ORAL CAP 00:00: [place] 00 [facility] PROPOXYPHEN 2006- Yes 1 Cap Oral Univers E 65 MG - Q4HPRN ity of ORAL CAP 00:00: [place] 00 [facility] PROPOXYPHEN 2006- Yes 1 Cap Oral Univers E 65 MG - Q4HPRN ity of ORAL CAP 00:00: [place] 00 [facility] PROPOXYPHEN 2006- Yes 1 Cap Oral Univers E 65 MG - Q4HPRN ity of ORAL CAP 00:00: [address] PROPOXYPHEN 2006- Yes 1 Cap Oral Univers E 65 MG - Q4HPRN ity of ORAL CAP 00:00: [place] 00 [facility] Branch PROPOXYPHEN 2006-08 Yes 1 Cap Oral Univers E 65 MG -02 Q4HPRN ity of ORAL CAP 00:00: [place] 00 [facility] Branch PROPOXYPHEN 2006- Yes 1 Cap Oral Univers E 65 MG 08-21 Q4HPRN ity of ORAL CAP 00:00: [place] 00 [facility] Branch PROPOXYPHEN 2006- Yes 1 Cap Oral Univers E 65 MG 08-21 Q4HPRN ity of ORAL CAP 00:00: [place] 00 [facility] Branch PROPOXYPHEN 2006- Yes 1 Cap Oral Univers E 65 MG 08-21 Q4HPRN ity of ORAL CAP 00:00: [place] 00 [facility] PROPOXYPHEN 2006- Yes 1 Cap Oral Univers E 65 MG 08-21 Q4HPRN ity of ORAL CAP 00:00: [place] 00 [facility] Branch PROPOXYPHEN 2006- Yes 1 Cap Oral Univers E 65 MG 08-21 Q4HPRN ity of ORAL CAP 00:00: [place] 00 [facility] Branch PROPOXYPHEN 2006- Yes 1 Cap Oral Univers E 65 MG -02 Q4HPRN ity of ORAL CAP 00:00: [place] 00 Medical Branch PROPOXYPHEN 2006- Yes 1 Cap Oral Univers E 65 MG 02 Q4HPRN ity of ORAL CAP 00:00: [place] 00 [facility] Branch PROPOXYPHEN 2006- Yes 1 Cap Oral Univers E 65 MG 08-21 Q4HPRN ity of ORAL CAP 00:00: [place] 00 [facility] Branch PROPOXYPHEN 2006- Yes 1 Cap Oral Univers E 65 MG 02 Q4HPRN ity of ORAL CAP 00:00: [place] 00 [facility] PROPOXYPHEN 2006- 2020- No 1 Cap Oral Univers E 65 MG 08-21 12-10 Q4HPRN ity of ORAL CAP 00:00: 00:00 [place] 00 :00 [facility] Vital Signs Vital Name Observation Time Observation Value Comments Source Systolic blood 2021-05-04 17:10:00 94 mm[Hg] Univer sity of pressure [facility] Diastolic blood 2021-05-04 17:10:00 65 mm[Hg] Unive rsity of pressure [facility] Body weight 2021-05-04 17:10:00 53.978 kg Universi ty of [facility] BMI 2021-05-04 17:10:00 21.77 kg/m2 Universi ty of [place] [facility] Systolic blood 2021-01-11 14:29:00 112 mm[Hg] Univer sity of pressure [place] [facility] Diastolic blood 2021-01-11 14:29:00 60 mm[Hg] Unive rsity of pressure [place] [facility] Body weight 2021-01-11 14:29:00 50.349 kg Universi ty of [place] [facility] BMI 2021-01-11 14:29:00 20.30 kg/m2 Universi ty of [place] [facility] Systolic blood 2020-12-02 16:06:00 97 mm[Hg] Univer sity of pressure [place] [facility] Diastolic blood 2020-12-02 16:06:00 66 mm[Hg] Unive rsity of pressure [place] [facility] Heart rate 2020-12-02 16:06:00 80 /min Universi ty of [place] [facility] Body temperature 2020-12-02 16:06:00 36.17 Freya [facility] ersity of [facility] Branch Respiratory rate 2020-12-02 16:06:00 18 /min Univ ersity of [place] [facility] Body weight 2020-12-02 16:06:00 51.256 kg Universi ty of [place] [facility] BMI 2020-12-02 16:06:00 20.67 kg/m2 Universi ty of [facility] Branch Oxygen saturation in 2020-12-02 16:06:00 95 /min University of Arterial blood by [facility] Pulse oximetry Branch Systolic blood 2020-12-02 16:06:00 97 mm[Hg] Univer sity of pressure [facility] Branch Diastolic blood 2020-12-02 16:06:00 66 mm[Hg] Unive rsity of pressure [facility] Branch Heart rate 2020-12-02 16:06:00 80 /min Universi ty of [place] [facility] Body temperature 2020-12-02 16:06:00 36.17 Freya [facility] ersity of [facility] Branch Respiratory rate 2020-12-02 16:06:00 18 /min Univ ersity of [place] [facility] Body weight 2020-12-02 16:06:00 51.256 kg Universi ty of [place] [facility] BMI 2020-12-02 16:06:00 20.67 kg/m2 Universi ty of [place] [facility] Oxygen saturation in 2020-12-02 16:06:00 95 /min University of Arterial blood by [place] [facility] Pulse oximetry Branch Systolic blood 2020-12-02 13:23:00 91 mm[Hg] Univer sity of pressure [place] [facility] Diastolic blood 2020-12-02 13:23:00 63 mm[Hg] Unive rsity of pressure [place] [facility] Heart rate 2020-12-02 13:09:00 81 /min Universi ty of [place] [facility] Body temperature 2020-12-02 13:09:00 35.94 Freya Univ ersity of [place] [facility] Respiratory rate 2020-12-02 13:09:00 17 /min Univ ersity of [place] [facility] Body height 2020-12-02 13:09:00 157.5 cm Universi ty of [place] [facility] Body weight 2020-12-02 13:09:00 51.256 kg Universi ty of [place] [facility] BMI 2020-12-02 13:09:00 20.67 kg/m2 Universi ty of [place] [facility] Oxygen saturation in 2020-12-02 13:09:00 99 /min University of Arterial blood by [place] [facility] Pulse oximetry Branch Systolic blood 2020-12-02 13:23:00 91 mm[Hg] Univer sity of pressure [place] [facility] Diastolic blood 2020-12-02 13:23:00 63 mm[Hg] Unive rsity of pressure [place] [facility] Heart rate 2020-12-02 13:09:00 81 /min Universi ty of [place] [facility] Body temperature 2020-12-02 13:09:00 35.94 Freya Univ ersity of [place] [facility] Respiratory rate 2020-12-02 13:09:00 17 /min Univ ersity of [place] [facility] Body height 2020-12-02 13:09:00 157.5 cm Universi ty of [place] [facility] Body weight 2020-12-02 13:09:00 51.256 kg Universi ty of [place] [facility] BMI 2020-12-02 13:09:00 20.67 kg/m2 Universi ty of [place] [facility] Oxygen saturation in 2020-12-02 13:09:00 99 /min University of Arterial blood by [place] Medi rosie Pulse oximetry Branch Systolic blood 2020-11-27 02:14:00 98 mm[Hg] Univer sity of pressure [place] [facility] Diastolic blood 2020-11-27 02:14:00 58 mm[Hg] Unive rsity of pressure [place] [facility] Heart rate 2020-11-27 02:14:00 85 /min Universi ty of [place] [facility] Body temperature 2020-11-27 02:14:00 36.67 Freya Univ ersity of [place] [facility] Respiratory rate 2020-11-27 02:14:00 18 /min Univ ersity of [place] [facility] Body weight 2020-11-27 02:14:00 52.164 kg Universi ty of [place] [facility] BMI 2020-11-27 02:14:00 21.03 kg/m2 Universi ty of [place] [facility] Oxygen saturation in 2020-11-27 02:14:00 100 /min University of Arterial blood by [place] Medi rosie Pulse oximetry Branch Systolic blood 2020-11-27 02:14:00 98 mm[Hg] Univer sity of pressure [place] [facility] Diastolic blood 2020-11-27 02:14:00 58 mm[Hg] Unive rsity of pressure [place] [facility] Heart rate 2020-11-27 02:14:00 85 /min Universi ty of [place] [facility] Body temperature 2020-11-27 02:14:00 36.67 Freya Univ ersity of [place] [facility] Respiratory rate 2020-11-27 02:14:00 18 /min Univ ersity of [place] [facility] Body weight 2020-11-27 02:14:00 52.164 kg Universi ty of [place] [facility] BMI 2020-11-27 02:14:00 21.03 kg/m2 Universi ty of [place] [facility] Oxygen saturation in 2020-11-27 02:14:00 100 /min University of Arterial blood by [place] Medi rosie Pulse oximetry Branch Systolic blood 2020-09-01 18:56:00 100 mm[Hg] Univer sity of pressure [place] [facility] Diastolic blood 2020-09-01 18:56:00 60 mm[Hg] Unive rsity of pressure [place] [facility] Body weight 2020-09-01 18:56:00 52.164 kg Universi ty of [place] [facility] BMI 2020-09-01 18:56:00 21.03 kg/m2 Universi ty [facility] [place] [facility] Systolic blood 2020-09-01 18:56:00 100 mm[Hg] Univer sity of pressure [place] [facility] Diastolic blood 2020-09-01 18:56:00 60 mm[Hg] Unive rsity of pressure [place] [facility] Body weight 2020-09-01 18:56:00 52.164 kg Universi ty of [place] [facility] BMI 2020-09-01 18:56:00 21.03 kg/m2 Universi ty of [place] [facility] Systolic blood 2020-07-28 19:28:00 80 mm[Hg] Univer sity of pressure [place] [facility] Diastolic blood 2020-07-28 19:28:00 54 mm[Hg] Unive rsity of pressure [place] [facility] Heart rate 2020-07-28 19:28:00 76 /min Universi ty of [place] [facility] Respiratory rate 2020-07-28 19:26:00 18 /min Univ ersity of [facility] Body height 2020-07-28 19:26:00 157.5 cm Universi ty of [place] [facility] Body weight 2020-07-28 19:26:00 52.073 kg Universi ty of [place] [facility] BMI 2020-07-28 19:26:00 21.00 kg/m2 Universi ty [facility] [place] [facility] Systolic blood 2020-07-21 19:22:00 80 mm[Hg] Univer sity of pressure [place] [facility] Diastolic blood 2020-07-21 19:22:00 60 mm[Hg] Unive rsity of pressure [place] [facility] Body weight 2020-07-21 19:22:00 54.885 kg Universi ty of [place] [facility] BMI 2020-07-21 19:22:00 21.43 kg/m2 Universi ty [facility] [place] [facility] Systolic blood 2020-06-17 19:27:00 104 mm[Hg] Univer sity of pressure [place] [facility] Diastolic blood 2020-06-17 19:27:00 70 mm[Hg] Unive rsity of pressure [place] [facility] Heart rate 2020-06-17 19:27:00 79 /min Universi ty [facility] [place] [facility] Body height 2020-06-17 19:27:00 160 cm [facility]i ty [facility] [place] [facility] Body weight 2020-06-17 19:27:00 55.067 kg [facility]i ty [facility] [place] [facility] BMI 2020-06-17 19:27:00 21.51 kg/m2 [facility] ty [facility] [place] [facility] Systolic blood 2020-02-26 15:31:00 77 mm[Hg] Univer sity of pressure [facility] Diastolic blood 2020-02-26 15:31:00 52 mm[Hg] Unive rsity of pressure [facility] Heart rate 2020-02-26 15:31:00 69 /min Universi ty [facility] Body temperature 2020-02-26 15:31:00 36.11 Freya [facility] ersity [facility] Respiratory rate 2020-02-26 15:31:00 18 /min [facility] 2020-02-26 15:31:00 157.5 cm Universi ty of [facility] Body weight 2020-02-26 15:31:00 53.978 kg Universi ty [facility] BMI 2020-02-26 15:31:00 [facility]77 [facility] Procedures Procedure Date / Time Performed Performing Clinician Sour e ASSIGNMENT OF BENEFITS 2021-05-04 17:07:58 Doctor Unassigned, No [facility] Medical Branch EXTERNAL PROVIDER 2020-12-23 05:01:00 Doctor Unassigned, No Univ ersity of [place] RECORDS [facility] [place] EXTERNAL PROVIDER 2020-12-23 05:01:00 Doctor Unassigned, No Univ ersity [facility] RECORDS [facility] URINALYSIS 2020-12-02 13:53:00 Kasey Arita [facility] POCT URINALYSIS 2020-12-02 13:28:00 Kasey Arita [facility] XR HUMERUS 2 VW LEFT 2020-11-27 03:15:30 Ernestina Torrez Uni versity [facility] XR RIBS 4+ VW LEFT 2020-11-27 03:15:30 [facility] 2020-11-27 02:01:49 Doctor Unassigned, No Un [facility]versity of [place] DIAGNOSIS AND Name Medical Branch TREATMENT NOTICE OF PRIVACY 2020-11-27 02:01:34 Doctor Unassigned, No Univ [facility]ity [facility] [place] PRACTICES Name [facility] [place] HOME HEALTH - OTHER 2020-08-19 06:01:00 Doctor Unassigned, No Un iversity of [facility] [place] Medical Branch XR SHOULDER <2 VW LEFT 2020-07-28 19:51:52 Consuelo Gee Uni versity of [facility] HOME HEALTH - OTHER 2020-07-27 06:01:00 Doctor Unassigned, No Un iversity of [facility] [place] Medical Branch XR HUMERUS 2 VW LEFT 2020-07-21 21:05:13 [place] [employer] ity of [facility] EXTERNAL PROVIDER 2020-06-30 06:01:00 Doctor Unassigned, No Univ ersity of [place] RECORDS Name [facility] [place] POCT URINALYSIS 2020-06-17 19:49:00 [place] Blue o f [facility] EXTERNAL PROVIDER 2019-03-19 05:01:00 Doctor Unassigned, No Univ ersity of [place] RECORDS Name [facility] [place] Plan of Care Planned Activity Planned Date Details Comments Source Future Scheduled 2021-06-17 Depression screening Uni versity of Test 00:00:00 (procedure) [code = [facility] dical 606909692] Branch Future Scheduled 2021-02-16 INFLUENZA VACCINE Postponed from Univ ersity of Test 00:00:00 (#1) [code = 04/20/2020 [facility] INFLUENZA VACCINE (Refused) Branch (#1)] Future Scheduled 2014 Screening for University of Test 00:00:00 malignant neoplasm [place] [facility] ical of lung (procedure) Branch [code = 933205224] Future Scheduled 2009 Screening for occult Uni versity of Test 00:00:[address] [facility] (procedure) [code = Branch 545018736] Future Scheduled 2009 Stool DNA-based Universi ty of Test 00:00:00 colorectal cancer [facility] screening Branch (procedure) [code = 715421948340054] Future Scheduled 2009 Flexible fiberoptic Univ ersity of Test 00:00:[address] [facility] (procedure) [code = Branch [id number]] Future Scheduled 2009 Screening for University of Test 00:00:00 malignant neoplasm [place] [facility] ical of colon (procedure) Branch [code = 420721343] Future Scheduled 2009 Screening for University of Test 00:00:00 malignant neoplasm [place] [facility] ical of colon (procedure) Branch [code = 364579426] Future Scheduled 2009 Zoster Recombinant Unive rsity of Test 00:00:00 Vaccine (SHINGRIX) [facility] ical (1 of 2) [code = Branch Zoster Recombinant Vaccine (SHINGRIX) (1 of 2)] Future Scheduled 2009-06-07 Screening for University of Test 00:00:00 malignant neoplasm [place] [facility] ical of cervix Branch (procedure) [code = 193599336] Future Scheduled 2007-07-25 Screening for University of Test 00:00:00 malignant neoplasm [place] [facility] ical of breast Branch (procedure) [code = 053120424] Future Scheduled 1978 DTaP,Tdap,and Td Univers ity of Test 00:00:00 Vaccines (1 - Tdap) [facility] dical [code = Branch DTaP,Tdap,and Td Vaccines (1 - Tdap)] Future Scheduled 1965 PNEUMOCOCCAL 0-64 Univer sity of Test 00:00:00 YEARS COMBINED [place] [facility] SERIES (1 of 3 - Branch PCV13) [code = PNEUMOCOCCAL 0-64 YEARS COMBINED SERIES (1 of 3 - PCV13)] Encounters Start End Encounter Admission Attending Care Care Encounter Source Date/Time Date/Time Type Type Clinicians Facility Department ID 2021-06-[address] [facility] [id number] Univers 13:07:02 ity of [facility] 2021-06-[address] [facility] [id number] Univers 11:59:00 ity [facility] 2021-08-03 2021-08-03 Outpatient [facility] [id number] Univers 12:00:00 12:00:00 CASTRO [id number] ity [facility] 2021-06-28 2021-06-28 [facility] [id number] Univers 00:00:00 00:00:00 [employer] [id number] it y of [place] [id number] Mikey as [place]?BLEA [id number] Ga dical [address] MEDICAL OFFICE BUILDING 2021-06-24 2021-06-24 Refill [facility] 1.2.840.114 [id number] Univers 00:00:00 00:00:00 [facility] 350.1.13.10 it y of [place] 4.2.7.2.686 Mikey as BRENTON?BLEA [phone] Ga jaskaran HARRIS [address] [place] [facility] 2021-05-04 2021-05-04 Office [facility] 1.2.840.114 [id number] Univers 12:08:03 12:23:[address] [facility] 350.1.13.10 it y of [place] 4.2.7.2.686 Mikey as Brenton?Blea [phone] Ga jaskaran harris [address] [place] [address] Office Building 2021-05-04 2021-05-[address] [facility] [id number] -20 Univers 12:00:00 12:00:00 CASTRO [id number] [facility] 2021-05-04 2021-05-[address] [facility] [id number] Univers 12:00:00 12:00:00 [facility] 2021-05-04 2021-05-04 Orders Doctor KV[facility] 1.2.840.114 [id number] Univers 00:00:00 00:00:00 Only Unassigned, ROLANDO 350.1.13.10 ity of [facility] 4.2.7.2.686 Mikey as [phone] [address] 2021-02-02 2021-02-02 Outpatient [facility] [id number] [place] [address] 00:00:00 00:00:[address] NADIM [address] 2021-02-01 2021-02-01 Refill [facility] 1.2.840.114 [id number] Univers 00:00:00 00:00:00 [facility] 350.1.13.10 it y of [place] 4.2.7.2.686 Mikey as Professio [phone] Ga jaskaran [address] Office Building One 2021-01-27 2021-01-27 Outpatient [facility] [id number] 321 [place] 00:00:00 00:00:00 NADIM [address] 2021-01-11 2021-01-11 Office [facility] 1.2.840.114 [id number] Univers 09:28:35 09:43:35 Visit [facility] 350.1.13.10 it y of [place] 4.2.7.2.686 Mikey as Professio [phone] Ga dical nal 044 [facility] One 2021-01-11 2021-01-[address] [facility] [id number] -20 Univers 09:30:00 09:30:00 CASTRO [id number] [facility] 2021-01-11 2021-01-[address] [facility] [id number] Univers 09:30:00 09:30:00 [facility] 2020-12-23 2020-12-23 Orders Doctor [facility] 1.2.840.114 [id number] Univers 00:00:00 00:00:00 Only Unassigned, ROLANDO 350.1.13.10 ity of [place] [facility] 4.2.7.2.686 Mikey as [phone] [address] 2020-12-23 2020-12-23 Orders Doctor KV[facility] 1.2.840.114 [id number] 13 00:00:00 00:00:00 Only Unassigned, ROLANDO 350.1.13.10 [place] [facility] 4.2.7.2.686 [phone] 009 2020-12-06 2020-12-06 Outpatient Reshma [facility] [id number] -20 Univers 10:15:00 10:15:00 CASTRO [id number] [facility] 2020-12-06 2020-12-[address] [facility] [id number] Univers 10:15:00 10:15:00 [facility] 2020-12-04 2020-12-06 Inpatient YASIR, [facility] [id number] 73 [place] 00:00:00 00:00:00 JENNIFER [address] 2020-12-05 2020-12-05 Telephone [facility] 1.2.409.709 [id number] Univers 00:00:00 00:00:00 [facility] 350.1.13.10 it y of [place] 4.2.7.2.686 Mikey as Professio [phone] [facility] nal 044 [facility] One 2020-12-05 2020-12-05 Telephone Mirza [facility] 1.2.503.347 [id number] 00:00:00 00:00:00 [facility] 350.1.13.10 [place] 4.2.7.2.686 Professio [phone] [place] [address] Office Building One 2020-12-02 2020-12-02 Emergency [facility] 1.2.305.161 [id number] Univers 10:56:00 12:00:00 Lori R [place] 350.1.13.10 i ty of [place] 4.2.7.2.686 [place] [facility] [phone] [place] 1852[address] [place] 2020-12-02 2020-12-02 Emergency [facility] 1.2.902.892 [id number] 10:56:00 12:00:00 Lori R [place] 350.1.13.10 [place] 4.2.7.2.686 [place] [phone] [facility] 2020-12-02 2020-12-02 Urgent Provider, [facility] 1.2.840.114 [id number] Univers 07:50:30 09:40:15 Care Sarah, [facility] 350.1.13.10 ity of [place] 4.2.7.2.686 Mikey Professio [phone] Ga dical [address] Office Building One 2020-12-02 2020-12-02 Urgent Provider, [facility] 1.2.455.514 [id number] 5403 07:50:30 09:40:15 Care [facility] 350.1.13.10 Care [place] 4.2.7.2.686 Professio [phone] [place] [address] Office Building One 2020-12-02 2020-12-[address] [facility] [id number] -20 Univers 09:20:00 09:20:00 [id number] ity [facility] 2020-12-02 2020-12-02 [facility]patient [facility] [id number] Univers 09:20:00 09:20:00 NICHOLE ity [facility] 2020-12-02 2020-12-02 Telephone [facility] 1.2.993.794 [id number] Univers 00:00:00 00:00:00 [facility] 350.1.13.10 it y of [place] 4.2.7.2.686 Mikey as Professio [phone] [address] Office [facility] One 2020-12-02 2020-12-02 Telephone [facility] 1.2.100.956 [id number] 00:00:00 00:00:00 [facility] 350.1.13.10 [place] 4.2.7.2.686 Professio [phone] [place] [address] Office [facility] One 2020-11-30 2020-11-30 Telephone [facility] 1.2.340.230 [id number] Univers 00:00:00 00:00:00 [facility] 350.1.13.10 it y of [place] 4.2.7.2.686 Mikey as Professio [phone] [address] One 2020-11-30 2020-11-30 [facility] 1.2.426.409 [id number] 1871 00:00:00 00:00:00 [facility] 350.1.13.10 [place] 4.2.7.2.686 Professio [phone] [address] 2020-11-26 2020-11-27 Emergency [facility] 1.2.840.114 [id number] Univers 21:15:00 00:04:00 Ernestina Romero 350.1.13.10 ity of [place] 4.2.7.2.686 [facility] [phone] [address] 2020-11-26 2020-11-27 Emergency [facility] 1.2.840.114 [id number] 21:15:00 00:04:00 Ernestina Romero 350.1.13.10 [place] 4.2.7.2.686 [place] [phone] [facility] 2020-11-27 2020-11-27 Nurse Hemalatha CALDERON 1.2.840.114 [id number] [facility] 00:00:00 00:00:00 Triage ROLANDO Ring 350.1.13.10 ity of [facility] 4.2.7.2.686 Mikey as [phone] [address] 2020-11-27 2020-11-27 Nurse Hemalatha CALDERON 1.2.840.114 [id number] 00:00:00 00:00:00 Triage ROLANDO Ring 350.1.13.10 [facility] 4.2.7.2.686 [phone] [facility] 2020-09-22 2020-09-22 Telephone [facility] 1.2.173.949 [id number] 8553 [facility] 00:00:00 00:00:00 [facility] 350.1.13.10 it y of [place] 4.2.7.2.686 Mikey as Professio [phone] [address] Office [facility] One 2020-09-22 2020-09-22 Telephone [facility] 1.2.526.406 [id number] 00:00:00 00:00:00 [facility] 350.1.13.10 [place] 4.2.7.2.686 Professio [phone] [place] [address] Office [facility] One 2020-09-01 2020-09-01 Office [facility] 1.2.840.114 [id number] Univers 12:28:02 12:43:02 Visit [facility] 350.1.13.10 it y of [place] 4.2.7.2.686 Mikey as Professio [phone] [address] Office Building One 2020-09-01 2020-09-01 Office [facility] 1.2.840.114 [id number] 12:28:02 12:43:02 Visit [facility] 350.1.13.10 [place] 4.2.7.2.686 Professio [phone] [place] [address] Office [facility] One 2020-09-01 2020-09-[address] Reshma [facility] [id number] -20 Univers 12:00:00 12:00:00 CASTRO [id number] ity [facility] 2020-09-01 2020-09-[address] [facility] [id number] Univers 12:00:00 12:00:00 CASTRO ity of [facility] 2020-08-23 2020-08-23 Telephone [facility] 1.2.419.645 [id number] Univers 00:00:00 00:00:00 [facility] 350.1.13.10 it y of [place] 4.2.7.2.686 Mikey as Professio [phone] Ga dical nal [address] [place] Office [facility] 2020-08-19 2020-08-19 Orders Doctor KVNG 1.2.840.114 [id number] Univers 00:00:00 00:00:00 Only Unassigned, ROLANDO 350.1.13.10 ity of [place] [facility] 4.2.7.2.686 Mikey as [phone] [address] 2020-07-29 2020-07-29 Telephone [facility] 1.2.930.484 [id number] Univers 00:00:00 00:00:00 [facility] 350.1.13.10 it y of [place] 4.2.7.2.686 Mikey as Professio [phone] Ga dical nal 044 [facility] 2020-07-28 2020-07-[address] [facility] 1.2.840.114 [id number] Univers 13:51:50 23:59:00 Encounter [facility] 350.1.13.10 ity of Surgical 4.2.7.2.686 Mikey as Specialti [phone] Ga dical es 809 [facility] 2020-07-28 2020-07-28 [facility] [id number] Univers 14:15:00 14:15:00 CONSUELO [id number] ity [facility] 2020-07-28 2020-07-28 Out[facility] [id number] Univers 14:15:00 14:15:00 CONSUELO ity [facility] 2020-07-28 2020-07-[address] [facility] 1.2.007.061 [id number] Univers 13:19:49 14:14:10 Visit [facility] 350.1.13.10 it y of Surgical 4.2.7.2.686 Mikey as Specialti [phone] Ga dical es 198 [facility] 2020-07-27 2020-07-27 Orders Doctor KVNG 1.2.840.114 [id number] Univers 00:00:00 00:00:00 Only Unassigned, ROLANDO 350.1.13.10 ity of [place] [facility] 4.2.7.2.686 Mikey as [phone] [facility] [address] [place] 2020-07-21 2020-07-21 Hospital [facility] 1.2.840.114 [id number] Univers 14:30:00 23:59:00 Encounter Castro Romero 350.1.13.10 ity of [place] 4.2.7.2.[place] [phone] [facility] 8[address] [place] 2020-07-21 2020-07-21 Office [facility] 1.2.840.114 [id number] Univers 13:10:30 13:40:[address] [facility] 350.1.13.10 it y of [place] 4.2.7.2.686 Mikey as Professio [phone] Ga dical nal 044 [place] Office [facility] 2020-07-21 2020-07-21 Outpatient [facility] [id number] -20 Univers 13:30:00 13:30:00 [facility] 2020-07-21 2020-07-21 Outpatient [facility] [id number] Univers 13:30:00 13:30:00 CASTRO [facility] 2020-07-09 2020-07-09 Telephone [facility] 1.2.344.392 [id number] Univers 00:00:00 00:00:00 [facility] 350.1.13.10 it y of [place] 4.2.7.2.686 Mikey as Professio [phone] Ga dical nal 044 [place] Office [facility] 2020-07-05 2020-07-05 Outpatient [facility] [id number] -20 Univers 14:30:00 14:30:00 CASTRO [id number] [facility] 2020-07-05 2020-07-05 Outpatient [facility] [id number] Univers 14:30:00 14:30:00 CASTRO ity [facility] 2020-07-05 2020-07-05 Telephone [facility] 1.2.373.458 [id number] Univers 00:00:00 00:00:00 [facility] 350.1.13.10 it y of [place] 4.2.7.2.686 Mikey as Professio [phone] [address] Office Building One 2020-06-29 2020-07-04 Inpatient AKINS, [facility] [id number] 0434 [place] 00:00:00 00:00:[address] 2020-06-30 2020-06-30 Orders Doctor KVNG 1..840.114 [id number] [facility] 00:00:00 00:00:00 Only Unassigned, ROLANDO 350.1.13.10 ity of [place] [facility] 4.2.7.2.686 Mikey as [phone] [address] 2020-06-22 2020-06-22 Outpatient Reshma VÁZQUEZ [facility] [id number] -[id number] Univers 10:00:00 10:00:00 SENDIL [id number] ity [facility] 2020-06-22 2020-06-22 Outpatient R KATHIE [facility] [id number] Univers 10:00:00 10:00:00 SENDIL [facility] 2020-06-22 2020-06-22 Telephone [facility] 1.2.592.858 [id number] Univers 00:00:00 00:00:00 [facility] 350.1.13.10 it y of [place] 4.2.7.2.686 Mikey as Professio [phone] [address] Office [facility] One 2020-06-22 2020-06-22 Telephone [facility] 1.2.351.575 [id number] Univers 00:00:00 00:00:00 [facility] 350.1.13.10 it y of [place] 4.2.7.2.686 Mikey as Professio [phone] [address] Office Building One 2020-06-21 2020-06-21 Telephone [facility] 1.2.068.421 [id number] Univers 00:00:00 00:00:00 [facility] 350.1.13.10 it y of [place] 4.2.7.2.686 Mikey as Professio [phone] [address] Office [facility] 2020-06-17 2020-06-17 Office Mirza [facility] 1.2.840.114 [id number] Univers 14:05:17 14:53:39 Visit [facility] 350.1.13.10 it y of [place] 4.2.7.2.686 Mikey as Professio [phone] [address] Office [facility] One 2020-06-17 2020-06-[address] [facility] [id number] -[id number] Univers 14:30:00 14:30:00 CASTRO [id number] [facility] 2020-06-17 2020-06-17 Outpatient R MIRZA [facility] [id number] Univers 14:30:00 14:30:00 CASTRO tam [facility] 2020-06-14 2020-06-14 Telephone [facility] 1.2.294.729 [id number] Univers 00:00:00 00:00:[address] [facility] 350.1.13.10 it y of [place] 4.2.7.2.686 Mikey as Professio [phone] [address] 2020-06-01 2020-06-01 [facility]ill [facility] 1.2.840.114 [id number] Univers 00:00:00 00:00:[address] [facility] 350.1.13.10 it y of [place] 4.2.7.2.686 Mikey as Professio [phone] [address] Office [facility] 2020-03-17 2020-03-17 Telephone [facility] 1.2.563.650 [id number] Univers 00:00:00 00:00:00 Castro Romero 350.1.13.10 i ty of [place] 4.2.7.2.[place] Profess[place] [phone] [address] 2020-03-11 2020-03-[address] [facility] [id number] -20 Univers 12:00:00 12:00:00 CASTRO [id number] ity [facility] 2020-02-26 2020-02-[address] [facility] [id number] -20 Univers 12:00:00 12:00:00 CASTRO ity [facility] 2020-02-26 2020-02-[address]hma [facility] [id number] Univers 12:00:00 12:00:00 CASTRO tam [facility] 2020-02-26 2020-02-26 Office [facility] 1.2.840.114 [id number] Univers 10:19:41 10:34:41 Visit Castro Nick 350.1.13.10 i ty of [place] 4.2.7.2.686 [place] Profess[place] [phone] [address] 2020-02-26 2020-02-[address]hma [facility] [id number] Univers 10:15:00 10:15:00 CASTRO villalta [facility] 2020-02-23 2020-02-23 Refill [facility] 1.2.840.114 [id number] Univers 00:00:00 00:00:00 [facility] 350.1.13.10 it y of [place] 4.2.7.2.686 Mikey as Professio [phone] [address] One 2019-11-21 2019-11-21 Telephone Mirza [facility] 1.2.471.956 [id number] Univers 00:00:00 00:00:[address] [facility] 350.1.13.10 it y of [place] 4.2.7.2.686 Mikey as Professio [phone] [address] Office Building One 2019-03-19 2019-03-19 Orders Doctor KVNG 1.2.840.114 [id number] Univers 00:00:00 00:00:00 Only Unassigned, ROLANDO 350.1.13.10 ity of [place] [facility] 4.2.7.2.686 Mikey as [phone] [address] Results Test Description Test Time Test Comments Results Result Comments Source SARS-CoV-2 (COVID-19) RNA [Presence] in Respiratory sp ecimen by 2020-12-04 09:35:29 TALIA with probe detection Test Item Value Reference Range Interpretation Comme nts SARS-CoV-2 (COVID-19) RNA [Presence] in Respiratory Not detected No t-Detected specimen by TALIA with probe detection (test code = 96832-5) [id number] 17:06:17 Test Item Value Reference Range Interpretation Comments APPEARANCE (test code = Clear Clear 1965524565) COLOR (test code = Yellow Yellow 2315522271) PH (test code = 4.8-8.0 7931168607) SP GRAVITY (test code = 1.003-1.030 5802982499) GLU U QUAL (test code = Normal Normal 1341866566) BLOOD (test code = 1+ Negative A 4627955622) KETONES (test code = Negative Negative 9046948797) PROTEIN (test code = Negative Negative 2887-8) UROBILIN (test code = Normal Normal 7562508897) BILIRUBIN (test code = Negative Negative 7835051351) NITRITE (test code = Negative Negative 6969719181) LEUK JED (test code = Negative Negative 8786453708) RBC/HPF (test code = See_Comment [Autom ated message] 8760109239) The system [employer] generated this result transmitted ref erence range: 0 - 3 HP F. The reference range was not used to int erpret this result as normal/abnormal . WBC/HPF (test code = <1 See_Comment [Autom ated message] 1717556319) The system [employer] generated this result transmitted ref erence range: 0 - 5 HP F. The reference range was not used to int erpret this result as normal/abnormal . BACTERIA (test code = Negative Negative 0430141669) SQ EPITH (test code = HPF 3487180471) HYAL CAST (test code = See_Comment H [Aut omated message] 7917246669) The system [employer] generated this result transmitted ref erence range: <=2 LPF. The reference range was not used to int erpret this result as normal/abnormal . Lab Interpretation (test Abnormal code = 60130-9) [facility] URINALYSIS W SPECIFIC [id number] 13:39:00 Test Item Value Reference Range Interpretation Comments POCT U SP GRAV (test code = 1.020 mg/dl 1.005-1.025 3255) POCT PH U (test code = 3254) 5 mg/dl 5-8 POCT U LEUK EST (test code = trace Negative - Negative 3263) POCT U NIT (test code = 3262) negative Negative - Negative POCT U PROT (test code = trace Negative - Negative 3259) POCT U GLU (test code = 3256) negative Negative - Negative POCT U KETONE (test code = negative Negative - Negative 3258) POCT U UROBILI (test code = normal 0.2-1 3260) POCT U BILI (test code = negative Negative - Negative 3261) POCT U BLD (test code = 3257) Negative - Negative POCT U COLOR (test code = yellow 3266) POCT U APPEAR (test code = clear 3267) [facility] <2 [id number] 20:51:37 Healing 3-part proximal humerus fractureUnBaylor Scott & [facility] FallsXR HUMERUS 2 [facility] [id number] 21:07:59HISTORY: Fracture. FINDINGS: AP and lateral views of left humerus showed subacute minimallyimpacted and comminuted fractures in the proximal shaft of the humerus withsome callus formation noted surrounding the fracture. Fracture is locatedjust below the surgical neck portion of the humerus. Osteoporosissuspected. No significant changes of arthritis or aggressive bone lesionsseen.Incidental note made of a battery pack over the anterolateral left chestwall, multiple electrodes and saline type left breast prosthesis. CONCLUSIONS: Healing fracture in the proximal shaft of left humerus. Wymb, Radiant Results Inft User - 07/21/2020 3:09 PM CSTHISTORY: Fracture.FINDINGS: AP and lateral views of left humerus showed subacute minimallyimpacted and comminuted fractures in the proximal shaft of the humerus withsome callus formation noted surrounding the fracture. Fracture is locatedjust below the surgical neck portion of the humerus. Osteoporosissuspected. No significant changes of arthritis or aggressivebone lesionsseen.Incidental note made of a battery pack over the anterolateral left chestwall, multiple electrodes and saline type left breast prosthesis.CONCLUSIONS: Healing fracture in the proximal shaft of left humerus. [facility] ([facility]OVID-19) RNA [Presence] in Respiratory specimen by TALIA with probe [id number] 23:17:05 Test Item Value Reference Range Interpretation Comments SARS-CoV-2 (COVID-19) RNA Not detected Not-Detected [Presence] in Respiratory specimen by TALIA with probe detection (test code = 45487-5) POCT URINALYSIS W SPECIFIC [id number] 19:51:00 Test Item Value Reference Range Interpretation Comments POCT U SP GRAV (test code = 1.025 mg/dl 1.005-1.025 3255) POCT PH U (test code = 3254) 6 mg/dl 5-8 POCT U LEUK EST (test code = trace Negative - Negative A 3263) POCT U NIT (test code = negative Negative - Negative 3262) POCT U PROT (test code = negative Negative - Negative 3259) POCT U GLU (test code = negative Negative - Negative 3256) POCT U KETONE (test code = negative Negative - Negative 3258) POCT U UROBILI (test code = normal 0.2-1 3260) POCT U BILI (test code = +++ Negative - Negative 326) POCT U BLD (test code = Negative - Negative A 3257) POCT U COLOR (test code = light yellow 6) POCT U APPEAR (test code = clear 3266) Lab Interpretation (test Abnormal code = 05843-5) [facility] URINALYSIS W SPECIFIC [id number] 19:51:00 Test Item Value Reference Range Interpretation Comments POCT U SP GRAV (test code = 1.025 mg/dl 1.005-1.025 5) POCT PH U (test code = 3254) 6 mg/dl 5-8 POCT U LEUK EST (test code = trace Negative - Negative A 3263) POCT U NIT (test code = negative Negative - Negative 3262) POCT U PROT (test code = negative Negative - Negative 3259) POCT U GLU (test code = negative Negative - Negative 3256) POCT U KETONE (test code = negative Negative - Negative 3258) POCT U UROBILI (test code = normal 0.2-1 3260) POCT U BILI (test code = +++ Negative - Negative 3261) POCT U BLD (test code = Negative - Negative A 3257) POCT U COLOR (test code = light yellow 3266) POCT U APPEAR (test code = clear 3267) Lab Interpretation (test Abnormal code = 59502-0) [facility]
== END 2021-06-28 14:52 | disposition home or self-care (01) ==
LOC: ER 11:37
DX: M79.89 Other specified soft tissue disorders (principal); N18.9 Chronic kidney disease, unspecified; Z88.6 Allergy status to analgesic agent; Z88.0 Allergy status to penicillin; Z88.8 Allergy status to other drugs, medicaments and biological substances
CPT/HCPCS: 93005; 85025; 80048; 36415; 96374; 99284; J1940

== ENCOUNTER 2021-07-11 17:48 | Emergency (ER) | payer OTHER ==
--- OUTSIDE RECORDS SUMMARY | 2021-07-11 17:55 | XMS REPORT | Continuity of Care Document ---
:[address] [facility] t Address [address] [place] [address] Care Team Providers Name Role Phone Mirza NAVARRO Primary Care Physician MIRZA Attending Clinician Unavailable Mirza NAVARRO Attending Clinician Doctor Unassigned, Name Attending Clinician Unavailable VICTORIA Attending Clinician Unavailable YASIR Attending Clinician Unavailable MD YASIR Attending Clinician Unavailable French EMNP, R Attending Clinician Provider, Urgent Care Attending Clinician Unavailable Anene CAMP COOK Attending Clinician ANENE Attending Clinician Unavailable Lore [...] Expiration Date S mikki MEDICARE PART A [id number] 2010 \T\ B 00:00:00 Problems Condition Condition [...] Quantity Comments Source Exposure to Not sure [facility] SARS-CoV-2 (event) Medica l Branch Tobacco use and 2017-12-14 2017-12-14 Never used [facility] exposure 00:00:00 00:00:00 [facility] Branch Sex Ass[birth year] [facility] 00:00:00 00:00:00 [facility] Smoking Status Start Date Stop Date Source Former smoker 2020-12-02 00:00:00 2020-12-02 00:00:00 [facility] Medications Ordered Filled Start Stop Current Ordering Indication Dosage Frequency Signature Comments Components Source Medication Medication Date Date Medication? Clinician (SIG) Name Name traMADoL 50 2020-08 Yes [id number] 50mg Take 1 [facility] ers mg tablet 08-28 tablet by ity o f 00:00: mouth [place] 00 every 6 Medical (six) Branch hours as needed for Pain (scale 7-10). Indication s: acute pain traMADoL 50 2020-08 Yes [id number] 50mg Take 1 Univ ers mg tablet 1-09 tablet by ity o f 00:00: mouth [place] 00 every 6 Medical (six) Branch hours as needed for Pain (scale 7-10). Indication s: acute pain ALPRAZolam 2020-0 Yes [id number] TAKE 1 U nivers 2 mg tablet 9-15 TABLET BY ity of 00:00: MOUTH [place] 00 THREE Medical TIMES Branch DAILY NEEDED ALPRAZolam 2020-0 Yes [id number] TAKE 1 U nivers 2 mg tablet 9-15 TABLET BY ity of 00:00: MOUTH [place] 00 THREE Medical TIMES Branch DAILY NEEDED ALPRAZolam 0 Yes [id number] TAKE 1 U nivers 2 mg tablet 9-15 TABLET BY ity of 00:00: MOUTH [place] 00 THREE Medical TIMES Branch DAILY NEEDED ALPRAZolam 2020-0 Yes [id number] TAKE 1 U nivers 2 mg tablet 9-15 TABLET BY ity of 00:00: MOUTH [place] 00 THREE Medical TIMES Branch DAILY NEEDED ALPRAZolam 2020-0 Yes [id number] TAKE 1 U nivers 2 mg tablet 6-16 TABLET BY ity of 00:00: MOUTH [place] 00 THREE Medical TIMES Branch DAILY NEEDED ALPRAZolam 2020-0 Yes [id number] TAKE 1 U nivers 2 mg tablet 6-16 TABLET BY ity of 00:00: MOUTH [place] 00 THREE Medical TIMES Branch DAILY NEEDED ALPRAZolam 2020-0 202- No [id number] TAKE 1 [facility] 2 mg tablet 6-16 09-15 TABLET BY it y of 00:00: 00:00 MOUTH [place] 00 :00 THREE Medical TIMES Branch DAILY NEEDED ALPRAZolam 2020-0 202- No [id number] TAKE 1 [facility] 2 mg tablet 6-16 09-15 TABLET BY it y of 00:00: 00:00 MOUTH [place] 00 :00 THREE Medical TIMES Branch DAILY NEEDED traMADoL 50 0 Yes acute pain 50mg Take 1 Univers mg tablet 4-10 tablet by ity o f 00:00: mouth [place] 00 every 6 Medical (six) Branch hours as needed for Pain (scale 7-10). Indication s: acute pain traMADoL 50 0 Yes [id number] 50mg Take 1 Univ ers [...] TIMES Branch DAILY NEEDED ALPRAZolam 0 Yes [id number] TAKE 1 U nivers 2 mg tablet 1-13 TABLET BY ity of 00:00: MOUTH [place] 00 THREE Medical TIMES Branch DAILY NEEDED ALPRAZolam 2020-0 Yes [id number] TAKE 1 U nivers 2 mg tablet 1-13 TABLET BY ity of 00:00: MOUTH [place] 00 THREE Medical TIMES Branch DAILY NEEDED ALPRAZolam 2020-0 Yes [id number] TAKE 1 U nivers 2 mg tablet 1-13 TABLET BY ity of 00:00: MOUTH [place] 00 THREE Medical TIMES Branch DAILY NEEDED ALPRAZolam 2020-0 Yes [id number] TAKE 1 U nivers 2 mg tablet 1-13 TABLET BY ity of 00:00: MOUTH [place] 00 THREE Medical TIMES Branch DAILY NEEDED ALPRAZolam 2020-0 Yes [id number] TAKE 1 U nivers 2 mg tablet 1-13 TABLET BY ity of 00:00: MOUTH [place] 00 THREE Medical TIMES Branch DAILY NEEDED ALPRAZolam 2020-0 Yes [id number] TAKE 1 U nivers 2 mg tablet 1-13 TABLET BY ity of 00:00: MOUTH [place] 00 THREE Medical TIMES Branch DAILY NEEDED ALPRAZolam 2020-0 Yes [id number] TAKE 1 U nivers 2 mg tablet 1-13 TABLET BY ity of 00:00: [facility] 00 THREE Medical TIMES Branch DAILY NEEDED ALPRAZolam 2020-0 Yes [id number] TAKE 1 U nivers 2 mg tablet 1-13 TABLET BY ity of 00:00: MOUTH [place] THREE Medical TIMES Branch DAILY NEEDED ALPRAZolam 2020-0 Yes [id number] TAKE 1 U nivers 2 mg tablet 1-13 TABLET BY ity of 00:00: MOUTH [place] 00 THREE Medical TIMES Branch DAILY NEEDED ALPRAZolam 2020-0 Yes [id number] TAKE 1 U nivers 2 mg tablet 1-13 TABLET BY ity of 00:00: MOUTH [place] 00 THREE Medical TIMES Branch DAILY NEEDED ALPRAZolam 2020-0 Yes [id number] TAKE 1 U nivers 2 mg tablet 1-13 TABLET BY ity of 00:00: MOUTH [place] 00 THREE Medical TIMES Branch DAILY NEEDED ALPRAZolam 2020-0 Yes [id number] TAKE 1 U nivers 2 mg tablet 1-13 TABLET BY ity of 00:00: MOUTH [place] 00 THREE Medical TIMES Branch DAILY NEEDED ALPRAZolam 2020-0 Yes [id number] TAKE 1 U nivers 2 mg tablet 1-13 TABLET BY ity of 00:00: [facility] 00 THREE Medical TIMES Branch DAILY NEEDED ALPRAZolam 2020-0 2020- No [id number] TAKE 1 Univers 2 mg tablet 1-13 [...] Indication s: chronic pain ALPRAZolam 2019- Yes [id number] TAKE 1 U nivers 2 mg tablet 2-02 TABLET BY ity of 00:00: MOUTH [place] 00 THREE Medical TIMES Branch DAILY NEEDED ALPRAZolam 2019-08 Yes [id number] TAKE 1 U nivers 2 mg tablet 2-02 TABLET BY ity of 00:00: MOUTH [place] 00 THREE Medical TIMES Branch DAILY NEEDED ALPRAZolam 2019-08 Yes [id number] TAKE 1 U nivers 2 mg tablet 2-02 TABLET BY ity of 00:00: MOUTH [place] 00 THREE Medical TIMES Branch DAILY NEEDED ALPRAZolam 2019-08 Yes [id number] TAKE 1 U nivers 2 mg tablet 2-02 TABLET BY ity of 00:00: MOUTH [place] 00 THREE Medical TIMES Branch DAILY NEEDED ALPRAZolam 2019-08 Yes [id number] TAKE 1 U nivers 2 mg tablet 2-02 TABLET BY ity of 00:00: MOUTH [place] 00 THREE Medical TIMES Branch DAILY NEEDED ALPRAZolam 2019-08 Yes [id number] TAKE 1 U nivers 2 mg tablet 2-02 TABLET BY ity of 00:00: MOUTH [place] 00 THREE Medical TIMES Branch DAILY NEEDED ALPRAZolam 2019-08 Yes [id number] TAKE 1 U nivers 2 mg tablet 2-02 TABLET BY ity of 00:00: MOUTH [place] 00 THREE Medical TIMES Branch DAILY NEEDED ALPRAZolam 2019- Yes [id number] TAKE 1 U nivers 2 mg tablet 2-02 TABLET BY ity of 00:00: MOUTH [place] 00 THREE Medical TIMES Branch DAILY NEEDED ALPRAZolam 2019-08 Yes [id number] TAKE 1 U nivers 2 mg tablet 2-02 TABLET BY ity of 00:00: MOUTH [place] 00 THREE Medical TIMES Branch DAILY NEEDED ALPRAZolam 2019- Yes [id number] TAKE 1 U nivers 2 mg tablet 2-02 TABLET BY ity of 00:00: MOUTH [place] 00 THREE Medical TIMES Branch DAILY NEEDED ALPRAZolam 2019- Yes [id number] TAKE 1 U nivers 2 mg tablet 2-02 TABLET BY ity of 00:00: MOUTH [place] 00 THREE Medical TIMES Branch DAILY NEEDED ALPRAZolam 2019-08 No [id number] TAKE 1 [facility] 2 mg tablet 09-21 TABLET BY it y of 00:00: 00:00 MOUTH [place] 00 :00 THREE Medical TIMES Branch DAILY NEEDED ALPRAZolam 2019-08 No [id number] TAKE 1 Univers 2 mg tablet 09-21 [...] by ity of tablet 19:32: mouth. [address] Branch spironolact 2020-1 Yes .5mg Take 0.5 Un jennifer one 25 mg 0-29 mg by ity of tablet 19:32: mouth. [place] [address] Medical Branch spironolact 2020-1 Yes .5mg Take 0.5 Un jennifer one 25 mg 0-29 mg by ity of tablet 19:32: mouth. [address] Branch spironolact 2020- Yes .5mg Take 0.5 Un jennifer one 25 mg 0-29 mg by ity of tablet 19:32: mouth. [address] Branch spironolact 2020- Yes .5mg Take 0.5 Un jennifer one 25 mg 0-29 mg by ity of tablet 19:32: mouth. [address] Branch spironolact 2020- Yes .5mg Take 0.5 Un jennifer one 25 mg 0-29 mg by ity of tablet 19:32: mouth. [address] spironolact 2020- Yes .5mg Take 0.5 Un jennifer one 25 mg 0-29 mg by ity of tablet 19:32: mouth. [address] Branch spironolact 2020- Yes .5mg Take 0.5 Un jennifer one 25 mg 0-29 mg by ity of tablet 19:32: mouth. [address] spironolact 2020-1 Yes .5mg Take 0.5 Un jennifer one 25 mg 0-29 mg by ity of tablet 19:32: mouth. [address] Branch spironolact 2020-1 Yes .5mg Take 0.5 Un jennifer one 25 mg 0-29 mg by ity of tablet 19:32: mouth. [address] Branch spironolact 2020-1 Yes .5mg Take 0.5 Un jennifer one 25 mg 0-29 mg by ity of tablet 19:32: mouth. [address] Branch spironolact 2020-1 Yes .5mg Take 0.5 Un jennifer one 25 mg 0-29 mg by ity of tablet 19:32: mouth. [address] spironolact 2020-1 Yes .5mg Take 0.5 Un jennifer one 25 mg 0-29 mg by ity of tablet 19:32: mouth. [address] Branch spironolact 2020-1 Yes .5mg Take 0.5 Un jennifer one 25 mg 0-29 mg by ity of tablet 19:32: mouth. [address] Branch spironolact 2020-1 Yes .5mg Take 0.5 Un jennifer one 25 mg 0-29 mg by ity of tablet 19:32: mouth. [address] Branch spironolact 2020- Yes .5mg Take 0.5 Un jennifer one 25 mg 0-29 mg by ity of tablet 19:32: mouth. [address] Branch spironolact 2020- Yes .5mg Take 0.5 Un jennifer one 25 mg 0-29 mg by ity of tablet 19:32: mouth. [address] Branch spironolact 2020- Yes .5mg Take 0.5 Un jennifer one 25 mg 0-29 mg by ity of tablet 19:32: mouth. [address] spironolact 2020- Yes .5mg Take 0.5 Un jennifer one 25 mg 0-29 mg by ity of tablet 19:32: mouth. [address] spironolact 2020- Yes .5mg Take 0.5 Un jennifer one 25 mg 0-29 mg by ity of tablet 19:32: mouth. [address] spironolact 2020- Yes .5mg Take 0.5 Un jennifer one 25 mg 0-29 mg by ity of tablet 19:32: mouth. [address] spironolact 2020- Yes .5mg Take 0.5 Un jennifer one 25 mg 0-29 mg by ity of tablet 19:32: mouth. [address] spironolact 2020-1 Yes .5mg Take 0.5 Un jennifer one 25 mg 0-29 mg by ity of tablet 19:32: mouth. [address] Branch spironolact 2020-1 Yes .5mg Take 0.5 Un jennifer one 25 mg 0-29 mg by ity of tablet 19:32: mouth. [address] Branch spironolact 2020-1 Yes .5mg Take 0.5 Un jennifer one 25 mg 0-29 mg by ity of tablet 19:32: mouth. [address] spironolact 2020-1 Yes .5mg Take 0.5 Un jennifer one 25 mg 0-29 mg by ity of tablet 19:32: mouth. [address] Branch spironolact 2020-1 Yes .5mg Take 0.5 Un jennifer one 25 mg 0-29 mg by ity of tablet 19:32: mouth. [place] [address] Medical Branch spironolact 2020-1 Yes .5mg Take 0.5 Un jennifer one 25 mg 0-29 mg by ity of tablet 19:32: mouth. [address] Branch spironolact 2020- Yes .5mg Take 0.5 Un jennifer one 25 mg 0-29 mg by ity of tablet 19:32: mouth. [address] Branch spironolact 2020- Yes .5mg Take 0.5 Un jennifer one 25 mg 0-29 mg by ity of tablet 19:32: mouth. [address] Branch spironolact 2020- Yes .5mg Take 0.5 Un jennifer one 25 mg 0-29 mg by ity of tablet 19:32: mouth. [address] spironolact 2020- Yes .5mg Take 0.5 Un jennifer one 25 mg 0-29 mg by ity of tablet 19:32: mouth. [address] Branch spironolact 2020- Yes .5mg Take 0.5 Un jennifer one 25 mg 0-29 mg by ity of tablet 19:32: mouth. [address] spironolact 2020-1 Yes .5mg Take 0.5 Un jennifer one 25 mg 0-29 mg by ity of tablet 19:32: mouth. [address] Branch spironolact 2020-1 Yes .5mg Take 0.5 Un jennifer one 25 mg 0-29 mg by ity of tablet 19:32: mouth. [address] Branch spironolact 2020-1 Yes .5mg Take 0.5 Un jennifer one 25 mg 0-29 mg by ity of tablet 19:32: mouth. [address] Branch spironolact 2020-1 Yes .5mg Take 0.5 Un jennifer one 25 mg 0-29 mg by ity of tablet 19:32: mouth. [address] spironolact 2020-1 Yes .5mg Take 0.5 Un jennifer one 25 mg 0-29 mg by ity of tablet 19:32: mouth. [address] Branch spironolact 2020-1 Yes .5mg Take 0.5 Un jennifer one 25 mg 0-29 mg by ity of tablet 19:32: mouth. [address] spironolact 2019- Yes .5mg Take 0.5 Un jennifer one 25 mg 0-29 mg by ity of tablet 19:32: mouth. [address] spironolact 2019-08 Yes .5mg Take 0.5 Un jennifer one 25 mg 0-29 mg by ity of tablet 19:32: mouth. [address] SPIRONOLACT 2019-08 2020- No Take by U nivers ONE ORAL 0-29 10-29 mouth. ity of 19:30: 00:00 [place] [address] :00 [facility] ALPRAZolam 2020- 2020- No 2mg Take 2 mg U nivers 2 mg tablet 0-29 10-29 by mouth. it y of 19:30: 00:00 [place] 45 :00 [facility] SPIRONOLACT 2019- 2020- No Take by U nivers ONE ORAL 0-29 10-29 mouth. ity of 19:30: 00:00 [place] [address] :00 [facility] ALPRAZolam 2020- 2020- No 2mg Take 2 mg U nivers 2 mg tablet 0-29 10-29 by mouth. it y of 19:30: 00:00 [place] 45 :00 [facility] SPIRONOLACT 2019- 2020- No Take by U nivers ONE ORAL 0-29 10-29 mouth. ity of 19:30: 00:00 [place] 45 :00 [facility] ALPRAZolam 2020- 2020- No 2mg Take 2 mg U nivers 2 mg tablet 0-29 10-29 by mouth. it y of 19:30: 00:00 [place] 45 :00 [facility] SPIRONOLACT 2020- 2020- No Take by U nivers ONE ORAL 0-29 10-29 mouth. ity of 19:30: 00:00 [place] 45 :00 [facility] ALPRAZolam 2020- 2020- No 2mg Take 2 mg U nivers 2 mg tablet 0-29 10-29 by mouth. it y of 19:30: 00:00 [place] 45 :[address] [place] [address] spironolact 2020- Yes .5mg Take 0.5 Un jennifer one 25 mg 0-29 mg by ity of tablet 14:32: mouth. [place] 48 Medical Branch spironolact 2019-08 Yes .5mg Take 0.5 Un jennifer one 25 mg 0-29 mg by ity of tablet 14:32: mouth. [address] Branch spironolact 2019- Yes .5mg Take 0.5 Un jennifer one 25 mg 0-29 mg by ity of tablet 14:32: mouth. [address] spironolact 2019- Yes .5mg Take 0.5 Un jennifer one 25 mg 0-29 mg by ity of tablet 14:32: mouth. [address] spironolact 2019- Yes .5mg Take 0.5 Un jennifer one 25 mg 0-29 mg by ity of tablet 14:32: mouth. [address] ciprofloxac 2019- Yes [id number] 250mg Take 1 Univers in HCl 0-29 tablet by ity of (CIPRO) 250 00:00: mouth [place] mg tablet 00 every 12 Medica l (twelve) Branch hours. ciprofloxac 2019- Yes [id number] 250mg Take 1 Univers in HCl 0-29 tablet by ity of (CIPRO) 250 00:00: mouth [place] mg tablet 00 every 12 Medica l (twelve) Branch hours. ciprofloxac 2019- Yes [id number] 250mg Take 1 Univers in HCl 0-29 tablet by ity of (CIPRO) 250 00:00: mouth [place] mg tablet 00 every 12 Medica l (twelve) Branch hours. ciprofloxac 2019- Yes [id number] 250mg Take 1 Univers in HCl 0-29 tablet by ity of (CIPRO) 250 00:00: mouth [place] mg tablet 00 every 12 Medica l (twelve) Branch hours. ciprofloxac 2019- Yes [id number] 250mg Take 1 Univers in HCl 0-29 tablet by ity of (CIPRO) 250 00:00: mouth [place] mg tablet 00 every 12 Medica l (twelve) Branch hours. ciprofloxac 2019- Yes [id number] 250mg Take 1 Univers in HCl 0-29 tablet by ity of (CIPRO) 250 00:00: mouth [place] mg tablet 00 every 12 Medica l (twelve) Branch hours. ciprofloxac 2019- Yes [id number] 250mg Take 1 Univers in HCl 0-29 tablet by ity of (CIPRO) 250 00:00: mouth [place] mg tablet 00 every 12 Medica l (twelve) Branch hours. ciprofloxac 2019- Yes [id number] 250mg Take 1 Univers in HCl 0-29 tablet by ity of (CIPRO) 250 00:00: mouth [place] mg tablet 00 every 12 Medica l (twelve) Branch hours. ciprofloxac 2019- Yes [id number] 250mg Take 1 Univers in HCl 0-29 tablet by ity of (CIPRO) 250 00:00: mouth [place] mg tablet 00 every 12 Medica l (twelve) Branch hours. ciprofloxac 2019- Yes [id number] 250mg Take 1 Univers in HCl 0-29 tablet by ity of (CIPRO) 250 00:00: mouth [place] mg tablet 00 every 12 Medica l (twelve) Branch hours. ciprofloxac 2019- Yes [id number] 250mg Take 1 Univers in HCl 0-29 tablet by ity of (CIPRO) 250 00:00: mouth [place] mg tablet 00 every 12 Medica l (twelve) Branch hours. ciprofloxac 2019- Yes [id number] 250mg Take 1 Univers in HCl 0-29 tablet by ity of (CIPRO) 250 00:00: mouth [place] mg tablet 00 every 12 Medica l (twelve) Branch hours. ciprofloxac 2019- Yes [id number] 250mg Take 1 Univers in HCl 0-29 tablet by ity of (CIPRO) 250 00:00: mouth [place] mg tablet 00 every 12 Medica l (twelve) Branch hours. ciprofloxac 2019- Yes [id number] 250mg Take 1 Univers in HCl 0-29 tablet by ity of (CIPRO) 250 00:00: mouth [place] mg tablet 00 every 12 Medica l (twelve) Branch hours. ciprofloxac 2019- Yes [id number] 250mg Take 1 Univers in HCl 0-29 tablet by ity of (CIPRO) 250 00:00: mouth [place] mg tablet 00 every 12 Medica l (twelve) Branch hours. ciprofloxac 2019- Yes [id number] 250mg Take 1 Univers in HCl 0-29 tablet by ity of (CIPRO) 250 00:00: mouth [place] mg tablet 00 every 12 Medica l (twelve) Branch hours. ciprofloxac 2020- Yes [id number] 250mg Take 1 Univers in HCl 0-29 tablet by ity of (CIPRO) 250 00:00: mouth [place] mg tablet 00 every 12 Medica l (twelve) Branch hours. ciprofloxac 2019- Yes [id number] 250mg Take 1 Univers in HCl 0-29 tablet by ity of (CIPRO) 250 00:00: mouth [place] mg tablet 00 every 12 Medica l (twelve) Branch hours. ciprofloxac 2019- Yes [id number] 250mg Take 1 Univers in HCl 0-29 tablet by ity of (CIPRO) 250 00:00: mouth [place] mg tablet 00 every 12 Medica l (twelve) Branch hours. ciprofloxac 2019- Yes [id number] 250mg Take 1 Univers in HCl 0-29 tablet by ity of (CIPRO) 250 00:00: mouth [place] mg tablet 00 every 12 Medica l (twelve) Branch hours. ciprofloxac 2019- Yes [id number] 250mg Take 1 Univers in HCl 0-29 tablet by ity of (CIPRO) 250 00:00: mouth [place] mg tablet 00 every 12 Medica l (twelve) Branch hours. ciprofloxac 2019- Yes [id number] 250mg Take 1 Univers in HCl 0-29 tablet by ity of (CIPRO) 250 00:00: mouth [place] mg tablet 00 every 12 Medica l (twelve) Branch hours. ciprofloxac 2019- Yes [id number] 250mg Take 1 Univers in HCl 0-29 tablet by ity of (CIPRO) 250 00:00: mouth [place] mg tablet 00 every 12 Medica l (twelve) Branch hours. ciprofloxac 2019- Yes [id number] 250mg Take 1 Univers in HCl 0-29 tablet by ity of (CIPRO) 250 00:00: mouth [place] mg tablet 00 every 12 Medica l (twelve) Branch hours. ciprofloxac 2020- Yes [id number] 250mg Take 1 Univers in HCl 0-29 tablet by ity of (CIPRO) 250 00:00: mouth [place] mg tablet 00 every 12 Medica l (twelve) Branch hours. ciprofloxac 2019- Yes [id number] 250mg Take 1 Univers in HCl 0-29 tablet by ity of (CIPRO) 250 00:00: mouth [place] mg tablet 00 every 12 Medica l (twelve) Branch hours. ciprofloxac 2019- Yes [id number] 250mg Take 1 Univers in HCl 0-29 tablet by ity of (CIPRO) 250 00:00: mouth [place] mg tablet 00 every 12 Medica l (twelve) Branch hours. ciprofloxac 2019- Yes [id number] 250mg Take 1 Univers in HCl 0-29 tablet by ity of (CIPRO) 250 00:00: mouth [place] mg tablet 00 every 12 Medica l (twelve) Branch hours. ciprofloxac 2019-08 Yes [id number] 250mg Take 1 Univers in HCl 0-29 tablet by ity of (CIPRO) 250 00:00: mouth [place] mg tablet 00 every 12 Medica l (twelve) Branch hours. ciprofloxac 2019-08 Yes [id number] 250mg Take 1 Univers in HCl 0-29 tablet by ity of (CIPRO) 250 00:00: mouth [place] mg tablet 00 every 12 Medica l (twelve) Branch hours. ciprofloxac 2019-08 Yes [id number] 250mg Take 1 Univers in HCl 0-29 tablet by ity of (CIPRO) 250 00:00: mouth [place] mg tablet 00 every 12 Medica l (twelve) Branch hours. ciprofloxac 2019- Yes [id number] 250mg Take 1 Univers in HCl 0-29 tablet by ity of (CIPRO) 250 00:00: mouth [place] mg tablet 00 every 12 Medica l (twelve) Branch hours. ciprofloxac 2019- Yes [id number] 250mg Take 1 Univers in HCl 0-29 tablet by ity of (CIPRO) 250 00:00: mouth [place] mg tablet 00 every 12 Medica l (twelve) Branch hours. ciprofloxac 2019- Yes [id number] 250mg Take 1 Univers in HCl 0-29 tablet by ity of (CIPRO) 250 00:00: mouth [place] mg tablet 00 every 12 Medica l (twelve) Branch hours. ciprofloxac 2019- Yes [id number] 250mg Take 1 Univers in HCl 0-29 tablet by ity of (CIPRO) 250 00:00: mouth [place] mg tablet 00 every 12 Medica l (twelve) Branch hours. ciprofloxac 2020- Yes [id number] 250mg Take 1 Univers in HCl 0-29 tablet by ity of (CIPRO) 250 00:00: mouth [place] mg tablet 00 every 12 Medica l (twelve) Branch hours. ciprofloxac 2020- Yes [id number] 250mg Take 1 Univers in HCl 0-29 tablet by ity of (CIPRO) 250 00:00: mouth [place] mg tablet 00 every 12 Medica l (twelve) Branch hours. ciprofloxac 2019- Yes [id number] 250mg Take 1 Univers in HCl 0-29 tablet by ity of (CIPRO) 250 00:00: mouth [place] mg tablet 00 every 12 Medica l (twelve) Branch hours. ciprofloxac 2019- Yes [id number] 250mg Take 1 Univers in HCl 0-29 tablet by ity of (CIPRO) 250 00:00: mouth [place] mg tablet 00 every 12 Medica l (twelve) Branch hours. ciprofloxac 2019- Yes [id number] 250mg Take 1 Univers in HCl 0-29 tablet by ity of (CIPRO) 250 00:00: mouth [place] mg tablet 00 every 12 Medica l (twelve) Branch hours. ciprofloxac 2019- Yes [id number] 250mg Take 1 Univers in HCl 0-29 tablet by ity of (CIPRO) 250 00:00: mouth [place] mg tablet 00 every 12 Medica l (twelve) Branch hours. ciprofloxac 2019- Yes [id number] 250mg Take 1 Univers in HCl 0-29 tablet by ity of (CIPRO) 250 00:00: mouth [place] mg tablet 00 every 12 Medica l (twelve) Branch hours. ciprofloxac 2020- Yes [id number] 250mg Take 1 Univers in HCl 0-29 tablet by ity of (CIPRO) 250 00:00: mouth [place] mg tablet 00 every 12 Medica l (twelve) Branch hours. ciprofloxac 2020- Yes [id number] 250mg Take 1 Univers in HCl 0-29 tablet by ity of (CIPRO) 250 00:00: mouth [place] mg tablet 00 every 12 Medica l (twelve) Branch hours. ciprofloxac 2020- Yes [id number] 250mg Take 1 Univers in HCl 0-29 tablet by ity of (CIPRO) 250 00:00: mouth [place] mg tablet 00 every 12 Medica l (twelve) Branch hours. ciprofloxac 2019- Yes [id number] 250mg Take 1 Univers in HCl 0-29 tablet by ity of (CIPRO) 250 00:00: mouth [place] mg tablet 00 every 12 Medica l (twelve) Branch hours. ciprofloxac 2019- Yes [id number] 250mg Take 1 Univers in HCl 0-29 tablet by ity of (CIPRO) 250 00:00: mouth [place] mg tablet 00 every 12 Medica l (twelve) Branch hours. ciprofloxac 2019- Yes [id number] 250mg Take 1 Univers in HCl 0-29 tablet by ity of (CIPRO) 250 00:00: mouth [place] mg tablet 00 every 12 Medica l (twelve) Branch hours. ciprofloxac 2019- Yes [id number] 250mg Take 1 Univers in HCl 0-29 tablet by ity of (CIPRO) 250 00:00: mouth [place] mg tablet 00 every 12 Medica l (twelve) Branch hours. ciprofloxac 2019- Yes [id number] 250mg Take 1 Univers in HCl 0-29 tablet by ity of (CIPRO) 250 00:00: mouth [place] mg tablet 00 every 12 Medica l (twelve) Branch hours. ciprofloxac 2019- Yes [id number] 250mg Take 1 Univers in HCl 0-29 tablet by ity of (CIPRO) 250 00:00: mouth [place] mg tablet 00 every 12 Medica l (twelve) Branch hours. ciprofloxac 2019- Yes [id number] 250mg Take 1 Univers in HCl 0-29 tablet by ity of (CIPRO) 250 00:00: mouth [place] mg tablet 00 every 12 Medica l (twelve) Branch hours. ciprofloxac 2019- Yes [id number] 250mg Take 1 Univers in HCl 0-29 tablet by ity of (CIPRO) 250 00:00: mouth [place] mg tablet 00 every 12 Medica l (twelve) Branch hours. ciprofloxac 2019- Yes [id number] 250mg Take 1 Univers in HCl 0-29 tablet by ity of (CIPRO) 250 00:00: mouth [place] mg tablet 00 every 12 Medica l (twelve) Branch hours. ciprofloxac 2020- Yes [id number] 250mg Take 1 Univers in HCl 0-29 tablet by ity of (CIPRO) 250 00:00: mouth [place] mg tablet 00 every 12 Medica l (twelve) Branch hours. ciprofloxac 2019- Yes [id number] 250mg Take 1 Univers in HCl 0-29 tablet by ity of (CIPRO) 250 00:00: mouth [place] mg tablet 00 every 12 Medica l (twelve) Branch hours. ciprofloxac 2019- Yes [id number] 250mg Take 1 Univers in HCl 0-29 tablet by ity of (CIPRO) 250 00:00: mouth [place] mg tablet 00 every 12 Medica l (twelve) Branch hours. ciprofloxac 2019- Yes [id number] 250mg Take 1 Univers in HCl 0-29 tablet by ity of (CIPRO) 250 00:00: mouth [place] mg tablet 00 every 12 Medica l (twelve) Branch hours. ciprofloxac 2019- Yes [id number] 250mg Take 1 Univers in HCl 0-29 tablet by ity of (CIPRO) 250 00:00: mouth [place] mg tablet 00 every 12 Medica l (twelve) Branch hours. ciprofloxac 2019- Yes [id number] 250mg Take 1 [facility] in HCl 0-29 tablet by ity of (CIPRO) 250 00:00: mouth [place] mg tablet 00 every 12 Medica l (twelve) Branch hours. ciprofloxac 2019- Yes [id number] 250mg Take 1 Univers in HCl 0-29 tablet by ity of (CIPRO) 250 00:00: mouth [place] mg tablet 00 every 12 Medica l (twelve) Branch hours. ciprofloxac 2019- Yes [id number] 250mg Take 1 [facility] in HCl 0-29 tablet by [facility] of (CIPRO) 250 00:00: mouth [place] mg tablet 00 every 12 Medica l (twelve) Branch hours. ciprofloxac 2019- Yes [id number] 250mg Take 1 [facility] in HCl 0-29 tablet by [facility] of (CIPRO) 250 00:00: mouth [place] mg tablet 00 every 12 Medica l (twelve) Branch hours. ciprofloxac 2019-08 Yes [id number] 250mg Take 1 [facility] in HCl 0-29 tablet by ity of (CIPRO) 250 00:00: mouth [place] mg tablet 00 every 12 Medica l (twelve) Branch hours. ciprofloxac 2019-08- No [id number] 250mg Take 1 [facility] in HCl 0-29 04-15 tablet by ity of (CIPRO) 250 00:00: 00:[place] tablet 00 :00 every 12 Medica l (twelve) Branch hours. ciprofloxac 2019-08- No [id number] 250mg Take 1 [facility] in HCl 0-29 04-15 tablet by [facility] of (CIPRO) 250 00:00: 00:00 mouth [place] mg tablet 00 :00 every 12 Medica l (twelve) Branch hours. ALPRAZolam 2019-08 Yes [id number] TAKE 1 [facility] 2 mg tablet 0-14 TABLET BY ity of 00:00: MOUTH [place] 00 THREE Medical TIMES Branch DAILY NEEDED ALPRAZolam 2020- Yes [id number] TAKE 1 [facility] 2 mg tablet 0-14 TABLET BY ity of 00:00: MOUTH [place] 00 THREE Medical TIMES Branch DAILY NEEDED ALPRAZolam 2020- Yes [id number] TAKE 1 [facility] 2 mg tablet 0-14 TABLET BY ity of 00:00: MOUTH [place] 00 THREE Medical TIMES Branch DAILY NEEDED ALPRAZolam 2020- Yes [id number] TAKE 1 [facility] 2 mg tablet 0-14 TABLET BY ity of 00:00: MOUTH [place] THREE Medical TIMES Branch DAILY NEEDED ALPRAZolam 2020- Yes [id number] TAKE 1 [facility] 2 mg tablet 0-14 TABLET BY ity of 00:00: MOUTH [place] THREE Medical TIMES Branch DAILY NEEDED ALPRAZolam 2020- Yes [id number] TAKE 1 [facility] 2 mg tablet 0-14 TABLET BY ity of 00:00: MOUTH [place] 00 THREE Medical TIMES Branch DAILY NEEDED ALPRAZolam 2020- Yes [id number] TAKE 1 [facility] 2 mg tablet 0-14 TABLET BY ity of 00:00: MOUTH [place] 00 THREE Medical TIMES Branch DAILY NEEDED ALPRAZolam 2020- Yes [id number] TAKE 1 [facility] 2 mg tablet 0-14 TABLET BY ity of 00:00: MOUTH [place] 00 THREE Medical TIMES Branch DAILY NEEDED ALPRAZolam 2020-1 Yes [id number] TAKE 1 [facility] 2 mg tablet 0-14 TABLET BY ity of 00:00: MOUTH [place] 00 THREE Medical TIMES Branch DAILY NEEDED ALPRAZolam 2020-1 Yes [id number] TAKE 1 [facility] 2 mg tablet 0-14 TABLET BY ity of 00:00: MOUTH [place] THREE Medical TIMES Branch DAILY NEEDED ALPRAZolam 2020-1 Yes [id number] TAKE 1 [facility] 2 mg tablet 0-14 TABLET BY ity of 00:00: MOUTH [place] THREE Medical TIMES Branch DAILY NEEDED ALPRAZolam 2020-1 Yes [id number] TAKE 1 [facility] 2 mg tablet 0-14 TABLET BY ity of 00:00: MOUTH [place] THREE Medical TIMES Branch DAILY NEEDED ALPRAZolam 2020-1 Yes [id number] TAKE 1 [facility] n[facility] 2 mg tablet 0-14 TABLET BY ity of 00:00: [facility] THREE Medical TIMES Branch DAILY NEEDED ALPRAZolam 2020-1 Yes [id number] TAKE 1 U nivers 2 mg tablet 0-14 TABLET BY ity of 00:00: MOUTH [place] THREE Medical TIMES Branch DAILY NEEDED ALPRAZolam 2020-1 Yes [id number] TAKE 1 [facility] nivers 2 mg tablet 0-14 TABLET BY ity of 00:00: MOUTH [place] THREE Medical TIMES Branch DAILY NEEDED ALPRAZolam 2020-1 Yes [id number] TAKE 1 [facility] nivers 2 mg tablet 0-14 TABLET BY ity of 00:00: [facility] THREE Medical TIMES Branch DAILY NEEDED ALPRAZolam 2020-1 Yes [id number] TAKE 1 U nivers 2 mg tablet 0-14 TABLET BY ity of 00:00: MOUTH [place] THREE Medical TIMES Branch DAILY NEEDED ALPRAZolam 2020-1 Yes [id number] TAKE 1 [facility] 2 mg tablet 0-14 TABLET BY ity of 00:00: MOUTH [place] 00 THREE Medical TIMES Branch DAILY NEEDED ALPRAZolam 2020-1 2020- No [id number] TAKE 1 [facility] 2 mg tablet 0-14 12-02 TABLET BY it y of 00:00: 00:00 MOUTH [place] 00 :00 THREE Medical TIMES Branch DAILY NEEDED ALPRAZolam 2020-1 2020- No [id number] TAKE 1 [facility] 2 mg tablet 0-14 12-02 TABLET BY it y of 00:00: 00:00 MOUTH [place] 00 :00 THREE Medical TIMES Branch DAILY NEEDED ALPRAZolam 2019- 2020- No [id number] TAKE 1 [facility] 2 mg tablet 0-14 [...] 2 ity of tablet 00:00: 00:00 (two) [place] 00 :00 times Medical daily. Branch furosemide 2020-0 2020- No 80mg Take 80 mg [facility] 20 mg -13 06- by mouth 2 ity of tablet 00:00: 00:00 (two) [place] 00 :00 times Medical daily. Branch furosemide 2019-0 2020- No 80mg Take 80 mg [facility] 20 mg -13 06- by mouth 2 ity of tablet 00:00: 00:00 (two) [place] 00 :00 times Medical daily. Branch traMADol [...] Indication s: acute pain ALPRAZolam 2020-0 Yes [id number] TAKE 1 [facility] nivers 2 mg tablet 7-09 TABLET BY ity of 00:00: MOUTH [place] 00 THREE Medical TIMES Branch DAILY NEEDED ALPRAZolam 2020-0 Yes [id number] TAKE 1 [facility] nivers 2 mg tablet 7-09 TABLET BY ity of 00:00: MOUTH [place] 00 THREE Medical TIMES Branch DAILY NEEDED ALPRAZolam 2020-0 Yes [id number] TAKE 1 [facility] nivers 2 mg tablet 7-09 TABLET BY ity of 00:00: MOUTH [place] 00 THREE Medical TIMES Branch DAILY NEEDED ALPRAZolam 2020-0 Yes [id number] TAKE 1 [facility] nivers 2 mg tablet 7-09 TABLET BY ity of 00:00: MOUTH [place] 00 THREE Medical TIMES Branch DAILY NEEDED ALPRAZolam 2020-0 2020- No [id number] TAKE 1 [facility] 2 mg tablet 7- 10-14 TABLET BY it y of 00:00: 00:00 MOUTH [place] 00 :00 THREE Medical TIMES Branch DAILY NEEDED ALPRAZolam 2020-0 Yes [id number] TAKE 1 [facility] nivers 2 mg tablet 1-09 TABLET BY ity of 00:00: MOUTH [place] 00 THREE Medical TIMES Branch DAILY NEEDED FOR SLEEP ALPRAZolam 2020-0 Yes [id number] TAKE 1 [facility] nivers 2 mg tablet 1-09 TABLET BY ity of 00:00: MOUTH [place] 00 THREE Medical TIMES Branch DAILY NEEDED FOR SLEEP ALPRAZolam 2020-0 2020- No [id number] TAKE 1 [facility] 2 mg tablet 1-04 26- TABLET BY it y of 00:00: 00:00 MOUTH [place] 00 :00 THREE Medical TIMES Branch DAILY NEEDED FOR SLEEP ALPRAZolam 2020-0 2020- No [id number] TAKE 1 [facility] 2 mg tablet 1-04 26-09 TABLET BY it y of 00:00: 00:00 MOUTH [place] 00 :00 THREE Medical TIMES Branch DAILY NEEDED FOR SLEEP furosemide 2018-0 Yes 80mg Take 80 mg U nivers (LASIX) 80 7-10 by mouth ity o f mg tablet 19:00: daily. [address] Branch DIGOXIN 2018-0 Yes Take by [facility] s ORAL 7-10 mouth. ity of 19:00: [address] Branch ENALAPRIL 2018- Yes Take by Univ ers MALEATE 7-10 mouth. ity of ORAL 19:00: [address] Branch sacubitril- 2019-0 Yes Take by Un jennifer valsartan 7-10 mouth 2 ity of (ENTRESTO) 19:00: (two) [place] 24-26 mg 17 times Medical Tab daily. Branch furosemide 2019- Yes 80mg Take 80 mg U nivers (LASIX) 80 7-10 by mouth ity o f mg tablet 19:00: daily. [address] DIGOXIN 2019-0 Yes Take by Univer s ORAL 7-10 mouth. ity of 19:00: [address] Branch SPIRONOLACT Yes Take by Un jennifer ONE ORAL 7-10 mouth. ity of 19:00: [address] Branch ENALAPRIL Yes Take by Univ ers MALEATE 7-10 mouth. ity of ORAL 19:00: [address] Branch sacubitril- Yes Take by Un jennifer valsartan 7-10 mouth 2 ity of (ENTRESTO) 19:00: (two) [place] 24-26 mg 17 times Medical Tab daily. Branch furosemide Yes 80mg Take 80 mg U nivers (LASIX) 80 7-10 by mouth ity o f mg tablet 19:00: daily. [address] DIGOXIN Yes Take by Univer s ORAL 7-10 mouth. ity of 19:00: [address] SPIRONOLACT Yes Take by Un jennifer ONE ORAL 7-10 mouth. ity of 19:00: [address] ENALAPRIL Yes Take by [facility] ers MALEATE 7-10 mouth. ity of ORAL 19:00: [address] sacubitril- Yes Take by Un jennifer valsartan 7-10 mouth 2 ity of (ENTRESTO) 19:00: (two) [place] 24-26 mg 17 times Medical Tab daily. Branch furosemide Yes 80mg Take 80 mg U nivers (LASIX) 80 7-10 by mouth ity o f mg tablet 19:00: daily. [address] DIGOXIN 2018- Yes Take by Univer s ORAL 7-10 mouth. ity of 19:00: [address] SPIRONOLACT Yes Take by Un jenn[facility] ONE ORAL 7-10 mouth. ity of 19:00: [address] Branch ENALAPRIL 2018- Yes Take by Univ ers MALEATE 7-10 mouth. ity of ORAL 19:00: [address] sacubitril- Yes Take by Un jennifer valsartan 7-10 mouth 2 ity of (ENTRESTO) 19:00: (two) [place] 24-26 mg 17 times Medical Tab daily. Branch furosemide Yes 80mg Take 80 mg U nivers (LASIX) 80 7-10 by mouth ity o f mg tablet 19:00: daily. [address] Branch DIGOXIN 2018-0 Yes Take by Univer s ORAL 7-10 mouth. ity of 19:00: [address] Branch SPIRONOLACT 2018-0 Yes Take by Un jennifer ONE ORAL 7-10 mouth. ity of 19:00: [address] Branch ENALAPRIL 2018-0 Yes Take by Univ ers MALEATE 7-10 mouth. ity of ORAL 19:00: [address] Branch sacubitril- Yes Take by Un j[facility] valsartan 7-10 mouth 2 ity of (ENTRESTO) 19:00: (two) [place] 24-26 mg 17 times Medical Tab daily. Branch furosemide 0 Yes 80mg Take 80 mg U nivers (LASIX) 80 7-10 by mouth ity o f mg tablet 19:00: daily. [address] DIGOXIN Yes Take by Univer s ORAL 7-10 mouth. ity of 19:00: [address] SPIRONOLACT Yes Take by Un [facility]enn[facility] ONE ORAL 7-10 mouth. ity of 19:00: [address] ENALAPRIL Yes Take by Univ ers MALEATE 7-10 mouth. ity of ORAL 19:00: [address] sacubitril- Yes Take by Un [facility] valsartan 7-10 mouth 2 ity of (ENTRESTO) 19:00: (two) [place] 24-26 mg 17 times Medical Tab daily. Branch furosemide 2018-0 Yes 80mg Take 80 mg U nivers (LASIX) 80 7-10 by mouth ity o f mg tablet 19:00: daily. [address] DIGOXIN 2018-0 Yes Take by Univer s ORAL 7-10 mouth. ity of 19:00: [address] SPIRONOLACT 2018-0 Yes Take by Un jennifer ONE ORAL 7-10 mouth. ity of 19:00: [address] ENALAPRIL 2018-0 Yes Take by Univ ers MALEATE 7-10 mouth. ity of ORAL 19:00: [address] Branch sacubitril- Yes Take by Un jenn[facility] valsartan 7-10 mouth 2 ity of (ENTRESTO) 19:00: (two) [place] 24-26 mg 17 times Medical Tab daily. Branch furosemide 2019-0 Yes 80mg Take 80 mg U nivers (LASIX) 80 7-10 by mouth ity o f mg tablet 19:00: daily. [place] [address] Medical Branch DIGOXIN 2019-0 Yes Take by Univer s ORAL 7-10 mouth. ity of 19:00: [address] Branch SPIRONOLACT 0 Yes Take by Un jennifer ONE ORAL 7-10 mouth. ity of 19:00: [address] Branch ENALAPRIL 2019-0 Yes Take by Univ ers MALEATE 7-10 mouth. ity of ORAL 19:00: [place] [address] Medical Branch sacubitril- 0 Yes Take by Un jennifer valsartan 7-10 mouth 2 ity of (ENTRESTO) 19:00: (two) [place] 24-26 mg 17 times Medical Tab daily. Branch furosemide Yes 80mg Take 80 mg U nivers (LASIX) 80 7-10 by mouth ity o f mg tablet 19:00: daily. [place] [address] Medical [place] DIGOXIN 2018-0 Yes Take by Univer s ORAL 7-10 mouth. ity of 19:00: [address] SPIRONOLACT Yes Take by Un jennifer ONE ORAL 7-10 mouth. ity of 19:00: [address] ENALAPRIL 2018-0 Yes Take by Univ ers MALEATE 7-10 mouth. ity of ORAL 19:00: [address] sacubitril- Yes Take by Un jenn[facility] valsartan 7-10 mouth 2 ity of (ENTRESTO) 19:00: (two) [place] 24-26 mg 17 times Medical Tab daily. Branch furosemide 2019-0 Yes 80mg Take 80 mg U nivers (LASIX) 80 7-10 by mouth ity o f mg tablet 19:00: daily. [address] Branch DIGOXIN 2018-0 Yes Take by Univer s ORAL 7-10 mouth. ity of 19:00: [address] SPIRONOLACT 2018-0 Yes Take by Un j[facility]ifer ONE ORAL 7-10 mouth. ity of 19:00: [address] ENALAPRIL 2019-0 Yes Take by Univ ers MALEATE 7-10 mouth. ity of ORAL 19:00: [address] sacubitril- Yes Take by Un jenn[facility] valsartan 7-10 mouth 2 ity of (ENTRESTO) 19:00: (two) [place] 24-26 mg 17 times Medical Tab daily. Branch furosemide 2018- Yes 80mg Take 80 mg U nivers (LASIX) 80 7-10 by mouth ity o f mg tablet 19:00: daily. [place] [address] Medical Branch DIGOXIN 2018-0 Yes Take by Univer s ORAL 7-10 mouth. ity of 19:00: [place] [address] Medical Branch SPIRONOLACT Yes Take by Un jennifer ONE ORAL 7-10 mouth. ity of 19:00: [place] [address] Medical Branch ENALAPRIL Yes Take by Univ ers MALEATE 7-10 mouth. ity of ORAL 19:00: [place] [address] Medical Branch sacubitril- Yes Take by Un [facility] valsartan 7-10 mouth 2 ity of (ENTRESTO) 19:00: (two) [place] 24-26 mg 17 times Medical Tab daily. Branch furosemide Yes 80mg Take 80 mg U nivers (LASIX) 80 7-10 by mouth ity o f mg tablet 19:00: daily. [place] [address] Medical Branch DIGOXIN Yes Take by Univer s ORAL 7-10 mouth. ity of 19:00: [address] Branch ENALAPRIL Yes Take by Univ ers MALEATE 7-10 mouth. ity of ORAL 19:00: [address] Branch sacubitril- Yes Take by Un [facility] valsartan 7-10 mouth 2 ity of (ENTRESTO) 19:00: (two) [place] 24-26 mg 17 times Medical Tab daily. Branch furosemide Yes 80mg Take 80 mg U nivers (LASIX) 80 7-10 by mouth ity o f mg tablet 19:00: daily. [place] [address] Medical Branch DIGOXIN 2018- Yes Take by Univer s ORAL 7-10 mouth. ity of 19:00: [place] [address] Medical Branch ENALAPRIL Yes Take by Univ ers MALEATE 7-10 mouth. ity of ORAL 19:00: [place] [address] Medical Branch sacubitril- Yes Take by Un [facility] valsartan 7-10 mouth 2 ity of (ENTRESTO) 19:00: (two) [place] 24-26 mg 17 times Medical Tab daily. Branch furosemide Yes 80mg Take 80 mg U nivers (LASIX) 80 7-10 by mouth ity o f mg tablet 19:00: daily. [address] DIGOXIN 0 Yes Take by Univer s ORAL 7-10 mouth. ity of 19:00: [address] ENALAPRIL Yes Take by Univ ers MALEATE 7-10 mouth. ity of ORAL 19:00: [address] Branch sacubitril- Yes Take by Un [facility] valsartan 7-10 mouth 2 ity of (ENTRESTO) 19:00: (two) [place] 24-26 mg 17 times Medical Tab daily. Branch furosemide Yes 80mg Take 80 mg U nivers (LASIX) 80 7-10 by mouth ity o f mg tablet 19:00: daily. [address] DIGOXIN Yes Take by Univer s ORAL 7-10 mouth. ity of 19:00: [address] ENALAPRIL Yes Take by Univ ers MALEATE 7-10 mouth. ity of ORAL 19:00: [address] sacubitril- Yes Take by Un [facility] valsartan 7-10 mouth 2 ity of (ENTRESTO) 19:00: (two) [place] 24-26 mg 17 times Medical Tab daily. Branch furosemide Yes 80mg Take 80 mg U nivers (LASIX) 80 7-10 by mouth ity o f mg tablet 19:00: daily. [address] DIGOXIN Yes Take by Univer s ORAL 7-10 mouth. ity of 19:00: [address] ENALAPRIL 0 Yes Take by Univ ers MALEATE 7-10 mouth. ity of ORAL 19:00: [address] sacubitril- Yes Take by Un [facility] valsartan 7-10 mouth 2 ity of (ENTRESTO) 19:00: (two) [place] 24-26 mg 17 times Medical Tab daily. Branch furosemide Yes 80mg Take 80 mg U nivers (LASIX) 80 7-10 by mouth ity o f mg tablet 19:00: daily. [address] DIGOXIN 2019-0 Yes Take by Univer s ORAL 7-10 mouth. ity of 19:00: [place] [address] Medical Branch ENALAPRIL Yes Take by Univ ers MALEATE 7-10 mouth. ity of ORAL 19:00: [place] [address] Medical Branch sacubitril- Yes Take by Un [facility] valsartan 7-10 mouth 2 ity of (ENTRESTO) 19:00: (two) [place] 24-26 mg 17 times Medical Tab daily. Branch furosemide Yes 80mg Take 80 mg U nivers (LASIX) 80 7-10 by mouth ity o f mg tablet 19:00: daily. [place] [address] Medical Branch DIGOXIN Yes Take by Univer s ORAL 7-10 mouth. ity of 19:00: [place] [address] Medical Branch ENALAPRIL Yes Take by Univ ers MALEATE 7-10 mouth. ity of ORAL 19:00: [place] [address] Medical Branch sacubitril- Yes Take by Un [facility] valsartan 7-10 mouth 2 ity of (ENTRESTO) 19:00: (two) [place] 24-26 mg 17 times Medical Tab daily. Branch furosemide Yes 80mg Take 80 mg U nivers (LASIX) 80 7-10 by mouth ity o f mg tablet 19:00: daily. [place] [address] Medical Branch DIGOXIN Yes [facility] mouth. ity of 19:00: [place] [address] Medical Branch ENALAPRIL Yes Take by Univ ers MALEATE 7-10 mouth. ity of ORAL 19:00: [place] [address] Medical Branch sacubitril- Yes Take by Un [facility] valsartan 7-10 mouth 2 ity of (ENTRESTO) 19:00: (two) [place] 24-26 mg 17 times Medical Tab daily. Branch furosemide Yes 80mg Take 80 mg U nivers (LASIX) 80 7-10 by mouth ity o f mg tablet 19:00: daily. [place] [address] Medical Branch DIGOXIN 2018-0 Yes Take by Univer s ORAL 7-10 mouth. ity of 19:00: [place] [address] Medical Branch ENALAPRIL Yes Take by Univ ers MALEATE 7-10 mouth. ity of ORAL 19:00: [place] [address] Medical Branch sacubitril- Yes Take by Un [facility] valsartan 7-10 mouth 2 ity of (ENTRESTO) 19:00: (two) [place] 24-26 mg 17 times Medical Tab daily. Branch furosemide Yes 80mg Take 80 mg U nivers (LASIX) 80 7-10 by mouth ity o f mg tablet 19:00: daily. [place] [address] Medical Branch DIGOXIN Yes Take by Univer s ORAL 7-10 mouth. ity of 19:00: [place] [address] Medical Branch ENALAPRIL Yes Take by Univ ers MALEATE 7-10 mouth. ity of ORAL 19:00: [place] [address] Medical Branch sacubitril- Yes Take by Un [facility] valsartan 7-10 mouth 2 ity of (ENTRESTO) 19:00: (two) [place] 24-26 mg 17 times Medical Tab daily. Branch furosemide Yes 80mg Take 80 mg U nivers (LASIX) 80 7-10 by mouth ity o f mg tablet 19:00: daily. [place] [address] Medical Branch DIGOXIN Yes Take by Univer s ORAL 7-10 mouth. ity of 19:00: [place] [address] Medical Branch ENALAPRIL Yes Take by Univ ers MALEATE 7-10 mouth. ity of ORAL 19:00: [place] [address] Medical Branch sacubitril- Yes Take by Un [facility] valsartan 7-10 mouth 2 ity of (ENTRESTO) 19:00: (two) [place] 24-26 mg 17 times Medical Tab daily. Branch furosemide Yes 80mg Take 80 mg U nivers (LASIX) 80 7-10 by mouth ity o f mg tablet 19:00: daily. [place] [address] Medical Branch DIGOXIN Yes Take by Univer s ORAL 7-10 mouth. ity of 19:00: [place] [address] Medical Branch ENALAPRIL Yes Take by Univ ers MALEATE 7-10 mouth. ity of ORAL 19:00: [place] [address] Medical Branch sacubitril- Yes Take by Un [facility] valsartan 7-10 mouth 2 ity of (ENTRESTO) 19:00: (two) [place] 24-26 mg 17 times Medical Tab daily. Branch furosemide Yes 80mg Take 80 mg U nivers (LASIX) 80 7-10 by mouth ity o f mg tablet 19:00: daily. [address] Branch DIGOXIN Yes Take by Univer s ORAL 7-10 mouth. ity of 19:00: [address] Branch ENALAPRIL Yes Take by Univ ers MALEATE 7-10 mouth. ity of ORAL 19:00: [address] Branch sacubitril- Yes Take by Un [facility] valsartan 7-10 mouth 2 ity of (ENTRESTO) 19:00: (two) [place] 24-26 mg 17 times Medical Tab daily. Branch furosemide Yes 80mg Take 80 mg U nivers (LASIX) 80 7-10 by mouth ity o f mg tablet 19:00: daily. [address] DIGOXIN Yes Take by Univer s ORAL 7-10 mouth. ity of 19:00: [address] ENALAPRIL Yes Take by [facility] ers MALEATE 7-10 mouth. ity of ORAL 19:00: [address] sacubitril- Yes Take by Un [facility] valsartan 7-10 mouth 2 ity of (ENTRESTO) 19:00: (two) [place] 24-26 mg 17 times Medical Tab daily. Branch furosemide Yes 80mg Take 80 mg U nivers (LASIX) 80 7-10 by mouth ity o f mg tablet 19:00: daily. [address] DIGOXIN Yes Take by Univer s ORAL 7-10 mouth. ity of 19:00: [address] ENALAPRIL Yes Take by Univ ers MALEATE 7-10 mouth. ity of ORAL 19:00: [address] Branch sacubitril- Yes Take by Un [facility] valsartan 7-10 mouth 2 ity of (ENTRESTO) 19:00: (two) [place] 24-26 mg 17 times Medical Tab daily. Branch furosemide Yes 80mg Take 80 mg U nivers (LASIX) 80 7-10 by mouth ity o f mg tablet 19:00: daily. [address] DIGOXIN Yes Take by Univer s ORAL 7-10 mouth. ity of 19:00: [address] ENALAPRIL 2019-0 Yes Take by Univ ers MALEATE 7-10 mouth. ity of ORAL 19:00: [address] Branch sacubitril- Yes Take by Un [facility] valsartan 7-10 mouth 2 ity of (ENTRESTO) 19:00: (two) [place] 24-26 mg 17 times Medical Tab daily. Branch furosemide 2018- Yes 80mg Take 80 mg U nivers (LASIX) 80 7-10 by mouth ity o f mg tablet 19:00: daily. [place] [address] Medical Branch DIGOXIN Yes Take by Univer s ORAL 7-10 mouth. ity of 19:00: [address] Branch ENALAPRIL 2018- Yes Take by Univ ers MALEATE 7-10 mouth. ity of ORAL 19:00: [address] Branch sacubitril- Yes Take by Un [facility] valsartan 7-10 mouth 2 ity of (ENTRESTO) 19:00: (two) [place] 24-26 mg 17 times Medical Tab daily. Branch furosemide Yes 80mg Take 80 mg U nivers (LASIX) 80 7-10 by mouth ity o f mg tablet 19:00: daily. [address] DIGOXIN Yes Take by [facility]-10 mouth. ity of 19:00: [address] ENALAPRIL Yes Take by [facility] ers MALEATE 7-10 mouth. ity of ORAL 19:00: [address] Branch sacubitril- Yes Take by Un [facility] valsartan 7-10 mouth 2 ity of (ENTRESTO) 19:00: (two) [place] 24-26 mg 17 times Medical Tab daily. Branch furosemide Yes 80mg Take 80 mg U nivers (LASIX) 80 7-10 by mouth ity o f mg tablet 19:00: daily. [address] DIGOXIN 2018- Yes Take by Univer s ORAL 7-10 mouth. ity of 19:00: [place] [address] Medical Branch ENALAPRIL 2018-0 Yes Take by Univ ers MALEATE 7-10 mouth. ity of ORAL 19:00: [address] Branch sacubitril- Yes Take by Un [facility] valsartan 7-10 mouth 2 ity of (ENTRESTO) 19:00: (two) [place] 24-26 mg 17 times Medical Tab daily. Branch furosemide Yes 80mg Take 80 mg U nivers (LASIX) 80 7-10 by mouth ity o f mg tablet 19:00: daily. [address] DIGOXIN 2018-0 Yes Take by Univer s ORAL 7-10 mouth. ity of 19:00: [address] ENALAPRIL Yes Take by Univ ers MALEATE 7-10 mouth. ity of ORAL 19:00: [address] Branch sacubitril- Yes Take by Un [facility] valsartan 7-10 mouth 2 ity of (ENTRESTO) 19:00: (two) [place] 24-26 mg 17 times Medical Tab daily. Branch furosemide Yes 80mg Take 80 mg U nivers (LASIX) 80 7-10 by mouth ity o f mg tablet 19:00: daily. [address] DIGOXIN Yes Take by [facility]-10 mouth. ity of 19:00: [address] ENALAPRIL Yes Take by Univ ers MALEATE 7-10 mouth. ity of ORAL 19:00: [address] sacubitril- Yes Take by Un [facility] valsartan 7-10 mouth 2 ity of (ENTRESTO) 19:00: (two) [place] 24-26 mg 17 times Medical Tab daily. Branch furosemide Yes 80mg Take 80 mg U nivers (LASIX) 80 7-10 by mouth ity o f mg tablet 19:00: daily. [address] DIGOXIN Yes Take by Univer s ORAL 7-10 mouth. ity of 19:00: [address] ENALAPRIL 0 Yes Take by Univ ers MALEATE 7-10 mouth. ity of ORAL 19:00: [address] sacubitril- Yes Take by [facility] valsartan 7-10 mouth 2 ity of (ENTRESTO) 19:00: (two) [place] 24-26 mg 17 times Medical Tab daily. Branch furosemide Yes 80mg Take 80 mg U nivers (LASIX) 80 7-10 by mouth ity o f mg tablet 19:00: daily. [address] DIGOXIN 2018-0 Yes Take by Univer s ORAL 7-10 mouth. ity of 19:00: [place] [address] Medical Branch ENALAPRIL Yes Take by Univ ers MALEATE 7-10 mouth. ity of ORAL 19:00: [place] [address] Medical Branch sacubitril- Yes Take by [facility] valsartan 7-10 mouth 2 ity of (ENTRESTO) 19:00: (two) [place] 24-26 mg 17 times Medical Tab daily. Branch furosemide Yes 80mg Take 80 mg U nivers (LASIX) 80 7-10 by mouth ity o f mg tablet 19:00: daily. [place] [address] Medical Branch DIGOXIN Yes Take by Univer s ORAL 7-10 mouth. ity of 19:00: [place] [address] Medical Branch ENALAPRIL Yes Take by Univ ers MALEATE 7-10 mouth. ity of ORAL 19:00: [place] [address] Medical Branch sacubitril- Yes Take by [facility] valsartan 7-10 mouth 2 ity of (ENTRESTO) 19:00: (two) [place] 24-26 mg 17 times Medical Tab daily. Branch furosemide Yes 80mg Take 80 mg U nivers (LASIX) 80 7-10 by mouth ity o f mg tablet 19:00: daily. [place] [address] Medical Branch DIGOXIN Yes Take by [facility]-10 mouth. ity of 19:00: [place] [address] Medical Branch ENALAPRIL Yes Take by Univ ers MALEATE 7-10 mouth. ity of ORAL 19:00: [place] [address] Medical Branch sacubitril- Yes Take by Un [facility] valsartan 7-10 mouth 2 ity of (ENTRESTO) 19:00: (two) [place] 24-26 mg 17 times Medical Tab daily. Branch furosemide Yes 80mg Take 80 mg U nivers (LASIX) 80 7-10 by mouth ity o f mg tablet 19:00: daily. [place] [address] Medical Branch DIGOXIN 2018-0 Yes Take by Univer s ORAL 7-10 mouth. ity of 19:00: [place] [address] [facility] Branch ENALAPRIL Yes Take by Univ ers MALEATE 7-10 mouth. ity of ORAL 19:00: [place] [address] Medical Branch sacubitril- Yes Take by Un [facility] valsartan 7-10 mouth 2 ity of (ENTRESTO) 19:00: (two) [place] 24-26 mg 17 times Medical Tab daily. Branch furosemide Yes 80mg Take 80 mg U nivers (LASIX) 80 7-10 by mouth ity o f mg tablet 19:00: daily. [place] [address] Medical Branch DIGOXIN Yes Take by Univer s ORAL 7-10 mouth. ity of 19:00: [place] [address] Medical Branch ENALAPRIL Yes Take by Univ ers MALEATE 7-10 mouth. ity of ORAL 19:00: [place] [address] Medical Branch sacubitril- Yes Take by Un jennifer valsartan 7-10 mouth 2 ity of (ENTRESTO) 19:00: (two) [place] 24-26 mg 17 times Medical Tab daily. Branch furosemide Yes 80mg Take 80 mg U nivers (LASIX) 80 7-10 by mouth ity o f mg tablet 19:00: daily. [place] [address] Medical Branch DIGOXIN Yes Take by Univer s ORAL 7-10 mouth. ity of 19:00: [place] [address] Medical Branch ENALAPRIL Yes Take by Univ ers MALEATE 7-10 mouth. ity of ORAL 19:00: [place] [address] Medical Branch sacubitril- Yes Take by Un jenn[facility] valsartan 7-10 mouth 2 ity of (ENTRESTO) 19:00: (two) [place] 24-26 mg 17 times Medical Tab daily. Branch furosemide Yes 80mg Take 80 mg U nivers (LASIX) 80 7-10 by mouth ity o f mg tablet 19:00: daily. [place] [address] Medical Branch DIGOXIN Yes Take by Univer s ORAL 7-10 mouth. ity of 19:00: [place] [address] Medical Branch ENALAPRIL Yes Take by Univ ers MALEATE 7-10 mouth. ity of ORAL 19:00: [place] [address] Medical Branch sacubitril- Yes Take by Un jennifer valsartan 7-10 mouth 2 ity of (ENTRESTO) 19:00: (two) [place] 24-26 mg 17 times Medical Tab daily. Branch furosemide Yes 80mg Take 80 mg U nivers (LASIX) 80 7-10 by mouth ity o f mg tablet 19:00: daily. [place] [address] Medical Branch DIGOXIN Yes Take by Univer s ORAL 7-10 mouth. ity of 19:00: [address] Branch ENALAPRIL Yes Take by Univ ers MALEATE 7-10 mouth. ity of ORAL 19:00: [address] Branch sacubitril- Yes Take by Un jennifer valsartan 7-10 mouth 2 ity of (ENTRESTO) 19:00: (two) [place] 24-26 mg 17 times Medical Tab daily. Branch furosemide Yes 80mg Take 80 mg U nivers (LASIX) 80 7-10 by mouth ity o f mg tablet 19:00: daily. [address] DIGOXIN Yes Take by Univer s ORAL 7-10 mouth. ity of 19:00: [address] ENALAPRIL Yes Take by [facility] ers MALEATE 7-10 mouth. ity of ORAL 19:00: [address] sacubitril- Yes Take by Un jennifer valsartan 7-10 mouth 2 ity of (ENTRESTO) 19:00: (two) [place] 24-26 mg 17 times Medical Tab daily. Branch furosemide Yes 80mg Take 80 mg U nivers (LASIX) 80 7-10 by mouth ity o f mg tablet 19:00: daily. [address] DIGOXIN Yes [facility] mouth. ity of 19:00: [address] ENALAPRIL Yes Take by [facility] ers MALEATE 7-10 mouth. ity of ORAL 19:00: [address] Branch sacubitril- Yes Take by Un jennifer valsartan 7-10 mouth 2 ity of (ENTRESTO) 19:00: (two) [place] 24-26 mg 17 times Medical Tab daily. Branch furosemide Yes 80mg Take 80 mg U nivers (LASIX) 80 7-10 by mouth ity o f mg tablet 19:00: daily. [address] DIGOXIN Yes Take by Univer s ORAL 7-10 mouth. ity of 19:00: [address] ENALAPRIL 2019-0 Yes Take by Univ ers MALEATE 7-10 mouth. ity of ORAL 19:00: [place] [address] Medical Branch sacubitril- Yes Take by [facility] jennifer valsartan 7-10 mouth 2 ity of (ENTRESTO) 19:00: (two) [place] 24-26 mg 17 times Medical Tab daily. Branch furosemide 2018- Yes 80mg Take 80 mg U nivers (LASIX) 80 7-10 by mouth ity o f mg tablet 19:00: daily. [place] [address] Medical Branch DIGOXIN 2018-0 Yes Take by Univer s ORAL 7-10 mouth. ity of 19:00: [place] [address] Medical Branch ENALAPRIL 2018- Yes Take by Univ ers MALEATE 7-10 mouth. ity of ORAL 19:00: [place] [address] Medical Branch sacubitril- Yes Take by [facility] j[facility] valsartan 7-10 mouth 2 ity of (ENTRESTO) 19:00: (two) [place] 24-26 mg 17 times Medical Tab daily. Branch furosemide Yes 80mg Take 80 mg U nivers (LASIX) 80 7-10 by mouth ity o f mg tablet 19:00: daily. [address] Branch DIGOXIN Yes [facility] mouth. ity of 19:00: [address] Branch ENALAPRIL 2018- Yes Take by Univ ers MALEATE 7-10 mouth. ity of ORAL 19:00: [place] [address] Medical Branch sacubitril- Yes Take by [facility]enn[facility] valsartan 7-10 mouth 2 ity of (ENTRESTO) 19:00: (two) [place] 24-26 mg 17 times Medical Tab daily. Branch furosemide Yes 80mg Take 80 mg U nivers (LASIX) 80 7-10 by mouth ity o f mg tablet 19:00: daily. [address] Branch DIGOXIN 2018-0 Yes Take by Univer s ORAL 7-10 mouth. ity of 19:00: [place] [address] Medical Branch ENALAPRIL 2018-0 Yes Take by Univ ers MALEATE 7-10 mouth. ity of ORAL 19:00: [address] Branch sacubitril- Yes Take by [facility] jennifer valsartan 7-10 mouth 2 ity of (ENTRESTO) 19:00: (two) [place] 24-26 mg 17 times Medical Tab daily. Branch furosemide 0 Yes 80mg Take 80 mg U nivers (LASIX) 80 7-10 by mouth ity o f mg tablet 19:00: daily. [place] [address] Medical Branch DIGOXIN 2018-0 Yes Take by Univer s ORAL 7-10 mouth. ity of 19:00: [address] Branch ENALAPRIL Yes Take by Univ ers MALEATE 7-10 mouth. ity of ORAL 19:00: [place] [address] Medical Branch sacubitril- Yes Take by [facility] jennifer valsartan 7-10 mouth 2 ity of (ENTRESTO) 19:00: (two) [place] 24-26 mg 17 times Medical Tab daily. Branch furosemide Yes 80mg Take 80 mg U nivers (LASIX) 80 7-10 by mouth ity o f mg tablet 19:00: daily. [place] [address] [facility] [place] DIGOXIN Yes [facility] mouth. ity of 19:00: [address] ENALAPRIL Yes Take by Univ ers MALEATE 7-10 mouth. ity of ORAL 19:00: [address] sacubitril- Yes Take by Un jennifer valsartan 7-10 mouth 2 ity of (ENTRESTO) 19:00: (two) [place] 24-26 mg 17 times Medical Tab daily. Branch furosemide Yes 80mg Take 80 mg U nivers (LASIX) 80 7-10 by mouth ity o f mg tablet 19:00: daily. [address] DIGOXIN Yes [facility]10 mouth. ity of 19:00: [address] ENALAPRIL 0 Yes Take by Univ ers MALEATE 7-10 mouth. ity of ORAL 19:00: [address] Branch sacubitril- Yes Take by Un jennifer valsartan 7-10 mouth 2 ity of (ENTRESTO) 19:00: (two) [place] 24-26 mg 17 times Medical Tab daily. Branch furosemide Yes 80mg Take 80 mg U nivers (LASIX) 80 7-10 by mouth ity o f mg tablet 19:00: daily. [place] 17 Medical Branch DIGOXIN 2019-0 Yes Take by Univer s ORAL 7-10 mouth. ity of 19:00: [place] [address] Medical Branch ENALAPRIL 2018-0 Yes Take by Univ ers MALEATE 7-10 mouth. ity of ORAL 19:00: [address] Branch sacubitril- Yes Take by Un jennifer valsartan 7-10 mouth 2 ity of (ENTRESTO) 19:00: (two) [place] 24-26 mg 17 times Medical Tab daily. Branch furosemide 2019-0 Yes 80mg Take 80 mg U nivers (LASIX) 80 7-10 by mouth ity o f mg tablet 14:00: daily. [place] [address] Medical Branch DIGOXIN Yes Take by Univer s ORAL 7-10 mouth. ity of 14:00: [address] Branch ENALAPRIL Yes Take by Univ ers MALEATE 7-10 mouth. ity of ORAL 14:00: [address] Branch sacubitril- Yes Take by Un jennifer valsartan 7-10 mouth 2 ity of (ENTRESTO) 14:00: (two) [place] 24-26 mg 17 times Medical Tab daily. Branch furosemide 0 Yes 80mg Take 80 mg U nivers (LASIX) 80 7-10 by mouth ity o f mg tablet 14:00: daily. [address] DIGOXIN 2018-0 Yes Take by Univer s ORAL 7-10 mouth. ity of 14:00: [address] Branch ENALAPRIL 2018-0 Yes Take by Univ ers MALEATE 7-10 mouth. ity of ORAL 14:00: [address] Branch sacubitril- Yes Take by Un jennifer valsartan 7-10 mouth 2 ity of (ENTRESTO) 14:00: (two) [place] 24-26 mg 17 times Medical Tab daily. Branch furosemide 2019-0 Yes 80mg Take 80 mg U nivers (LASIX) 80 7-10 by mouth ity o f mg tablet 14:00: daily. [place] [address] Medical Branch DIGOXIN 2018-0 Yes Take by Univer s ORAL 7-10 mouth. ity of 14:00: [place] [address] Medical Branch ENALAPRIL 2018-0 Yes Take by Univ ers MALEATE 7-10 mouth. ity of ORAL 14:00: [address] Branch sacubitril- 2019-0 Yes Take by Un jennifer valsartan 7-10 mouth 2 ity of (ENTRESTO) 14:00: (two) [place] 24-26 mg 17 times Medical Tab daily. Branch furosemide Yes 80mg Take 80 mg U nivers (LASIX) 80 7-10 by mouth ity o f mg tablet 14:00: daily. [address] Branch DIGOXIN Yes Take by Univer s ORAL 7-10 mouth. ity of 14:00: [place] [address] Medical Branch ENALAPRIL Yes Take by Univ ers MALEATE 7-10 mouth. ity of ORAL 14:00: [place] [address] Medical Branch sacubitril- Yes Take by Un jennifer valsartan 7-10 mouth 2 ity of (ENTRESTO) 14:00: (two) [place] 24-26 mg 17 times Medical Tab daily. Branch furosemide Yes 80mg Take 80 mg U nivers (LASIX) 80 7-10 by mouth ity o f mg tablet 14:00: daily. [address] DIGOXIN Yes Take by Univer s ORAL 7-10 mouth. ity of 14:00: [address] Branch ENALAPRIL Yes Take by Univ ers MALEATE 7-10 mouth. ity of ORAL 14:00: [address] Branch sacubitril- Yes Take by Un jennifer valsartan 7-10 mouth 2 ity of (ENTRESTO) 14:00: (two) [place] 24-26 mg 17 times Medical Tab daily. Branch ALPRAZolam Yes [id number] TAKE 1 U nivers 2 mg tablet 7-10 TABLET BY ity of 00:00: MOUTH [place] 00 THREE Medical TIMES Branch DAILY NEEDED FOR SLEEP sulfamethox 2018- Yes [id number] 1{tbl} Take 1 Univers azole-trime 7-10 tablet by ity of thoprim 00:00: mouth 2 [place] (BACTRIM) 00 (two) Medical 400-80 mg times Branch per tablet daily. sulfamethox 2019- Yes [id number] 1{tbl} Take 1 Univers azole-trime 7-10 tablet by ity of thoprim 00:00: mouth 2 [place] (BACTRIM) 00 (two) Medical 400-80 mg times Branch per tablet daily. sulfamethox Yes [id number] 1{tbl} Take 1 Univers azole-trime 7-10 tablet by ity of thoprim 00:00: mouth 2 [place] (BACTRIM) 00 (two) Medical 400-80 mg times Branch per tablet daily. sulfamethox Yes [id number] 1{tbl} Take 1 Univers azole-trime 7-10 tablet by ity of thoprim 00:00: mouth 2 [place] (BACTRIM) 00 (two) Medical 400-80 mg times Branch per tablet daily. sulfamethox Yes [id number] 1{tbl} Take 1 Univers azole-trime 7-10 tablet by ity of thoprim 00:00: mouth 2 [place] (BACTRIM) 00 (two) Medical 400-80 mg times Branch per tablet daily. sulfamethox Yes [id number] 1{tbl} Take 1 Univers azole-trime 7-10 tablet by ity of thoprim 00:00: mouth 2 [place] (BACTRIM) 00 (two) Medical 400-80 mg times Branch per tablet daily. sulfamethox Yes [id number] 1{tbl} Take 1 Univers azole-trime 7-10 tablet by ity of thoprim 00:00: mouth 2 [place] (BACTRIM) 00 (two) Medical 400-80 mg times Branch per tablet daily. sulfamethox Yes [id number] 1{tbl} Take 1 Univers azole-trime 7-10 tablet by ity of thoprim 00:00: mouth 2 [place] (BACTRIM) 00 (two) Medical 400-80 mg times Branch per tablet daily. sulfamethox Yes [id number] 1{tbl} Take 1 Univers azole-trime 7-10 tablet by ity of thoprim 00:00: mouth 2 [place] (BACTRIM) 00 (two) Medical 400-80 mg times Branch per tablet daily. sulfamethox 2019 Yes [id number] 1{tbl} Take 1 Univers azole-trime 7-10 tablet by ity of thoprim 00:00: mouth 2 [place] (BACTRIM) 00 (two) Medical 400-80 mg times Branch per tablet daily. sulfamethox 2020- No [id number] 1{tbl} Take 1 Univers azole-trime 7-10 10-29 tablet by it y of thoprim 00:00: 00:00 mouth 2 [place] (BACTRIM) 00 :00 (two) Medical 400-80 mg times Branch per tablet daily. sulfamethox 2020- No [id number] 1{tbl} Take 1 Univers azole-trime 7-10 10-29 tablet by it y of thoprim 00:00: 00:00 mouth 2 [place] (BACTRIM) 00 :00 (two) Medical 400-80 mg times Branch per tablet daily. sulfamethox 2019- No [id number] 1{tbl} Take 1 Univers azole-trime 7-10 10-29 tablet by it y of thoprim 00:00: 00:00 mouth 2 [place] (BACTRIM) 00 :00 (two) Medical 400-80 mg times Branch per tablet daily. sulfamethox 2019- No [id number] 1{tbl} Take 1 Univers azole-trime 7-10 10-29 tablet by it y of thoprim 00:00: 00:00 mouth 2 [place] (BACTRIM) 00 :00 (two) Medical 400-80 mg times Branch per tablet daily. dicyclomine 2019 Yes Abdominal 20mg Take 1 Univers (BENTYL) 20 5-07 pain, tablet by it y of mg tablet 00:00: unspecified mouth 4 [place] 00 abdominal (four) Medical location times Branch daily. dicyclomine 2019- Yes [id number] 20mg Take 1 Univers (BENTYL) 20 5-07 tablet by ity of mg tablet 00:00: mouth 4 [place] 00 (four) Medical times Branch daily. dicyclomine 2019-0 Yes [id number] 20mg Take 1 Univers (BENTYL) 20 5-07 tablet by ity of mg tablet 00:00: mouth 4 [place] 00 (four) Medical times Branch daily. dicyclomine 2019-0 Yes [id number] 20mg Take 1 Univers (BENTYL) 20 5-07 tablet by ity of mg tablet 00:00: mouth 4 [place] 00 (four) Medical times Branch daily. dicyclomine 2019- Yes [id number] 20mg Take 1 Univers (BENTYL) 20 5-07 tablet by ity of mg tablet 00:00: mouth 4 [place] 00 (four) Medical times Branch daily. dicyclomine 2019-0 Yes [id number] 20mg Take 1 Univers (BENTYL) 20 5-07 tablet by ity of mg tablet 00:00: mouth [place] ([facility]) Medical times Branch daily. dicyclomine 2019-0 Yes [id number] 20mg Take 1 Univers (BENTYL) 20 5-07 tablet by ity of mg tablet 00:00: mouth ([facility]) Medical times Branch daily. dicyclomine 2019-0 Yes [id number] 20mg Take 1 Univers (BENTYL) 20 5-07 tablet by ity of mg tablet 00:00: mouth ([facility]) Medical times Branch daily. dicyclomine 2019-0 Yes [id number] 20mg Take 1 Univers (BENTYL) 20 5-07 tablet by ity of mg tablet 00:00: mouth [place] ([facility]) Medical times Branch daily. dicyclomine 2019-0 Yes [id number] 20mg Take 1 Univers (BENTYL) 20 5-07 tablet by ity of mg tablet 00:00: mouth [place] ([facility]) Medical times Branch daily. dicyclomine 2019-0 Yes [id number] 20mg Take 1 Univers (BENTYL) 20 5-07 tablet by ity of mg tablet 00:00: mouth [place] ([facility]) Medical times Branch daily. dicyclomine 2019-0 Yes [id number] 20mg Take 1 Univers (BENTYL) 20 5-07 tablet by ity of mg tablet 00:00: mouth [place] ([facility]) Medical times Branch daily. dicyclomine 2019-0 Yes [id number] 20mg Take 1 Univers (BENTYL) 20 5-07 tablet by ity of mg tablet 00:00: mouth [place] ([facility]) Medical times Branch daily. dicyclomine 2019-0 Yes [id number] 20mg Take 1 Univers (BENTYL) 20 5-07 tablet by ity of mg tablet 00:00: mouth [place] ([facility]) Medical times Branch daily. dicyclomine 2019-0 Yes [id number] 20mg Take 1 Univers (BENTYL) 20 5-07 tablet by ity of mg tablet 00:00: mouth [place] ([facility]) Medical times Branch daily. dicyclomine 2019-0 Yes [id number] 20mg Take 1 Univers (BENTYL) 20 5-07 tablet by ity of mg tablet 00:00: mouth ([facility]) Medical times Branch daily. dicyclomine 2019-0 Yes [id number] 20mg Take 1 Univers (BENTYL) 20 5-07 tablet by ity of mg tablet 00:00: mouth [place] ([facility]) Medical times Branch daily. dicyclomine 2019-0 Yes [id number] 20mg Take 1 Univers (BENTYL) 20 5-07 tablet by ity of mg tablet 00:00: mouth [place] ([facility]) Medical times Branch daily. dicyclomine 2019-0 Yes [id number] 20mg Take 1 Univers (BENTYL) 20 5-07 tablet by ity of mg tablet 00:00: mouth [place] ([facility]) Medical times Branch daily. dicyclomine 2019-0 Yes [id number] 20mg Take 1 Univers (BENTYL) 20 5-07 tablet by ity of mg tablet 00:00: mouth [place] ([facility]) Medical times Branch daily. dicyclomine 2019-0 Yes [id number] 20mg Take 1 Univers (BENTYL) 20 5-07 tablet by ity of mg tablet 00:00: mouth [place] ([facility]) Medical times Branch daily. dicyclomine 2019-0 Yes [id number] 20mg Take 1 Univers (BENTYL) 20 5-07 tablet by ity of mg tablet 00:00: mouth [place] ([facility]) Medical times Branch daily. dicyclomine 2019-0 Yes [id number] 20mg Take 1 Univers (BENTYL) 20 5-07 tablet by ity of mg tablet 00:00: mouth [place] ([facility]) Medical times Branch daily. dicyclomine 2019-0 Yes [id number] 20mg Take 1 Univers (BENTYL) 20 5-07 tablet by ity of mg tablet 00:00: mouth [place] ([facility]) Medical times Branch daily. dicyclomine 2019-0 Yes [id number] 20mg Take 1 Univers (BENTYL) 20 5-07 tablet by ity of mg tablet 00:00: mouth [place] ([facility]) Medical times Branch daily. dicyclomine 2019-0 Yes [id number] 20mg Take 1 Univers (BENTYL) 20 5-07 tablet by ity of mg tablet 00:00: mouth [place] ([facility]) Medical times Branch daily. dicyclomine 2019-0 Yes [id number] 20mg Take 1 Univers (BENTYL) 20 5-07 tablet by ity of mg tablet 00:00: mouth ([facility]) Medical times Branch daily. dicyclomine 2019-0 Yes [id number] 20mg Take 1 Univers (BENTYL) 20 5-07 tablet by ity of mg tablet 00:00: mouth (four) Medical times Branch daily. dicyclomine 2019-0 Yes [id number] 20mg Take 1 Univers (BENTYL) 20 5-07 tablet by ity of mg tablet 00:00: mouth (four) Medical times Branch daily. dicyclomine 2019-0 Yes [id number] 20mg Take 1 Univers (BENTYL) 20 5-07 tablet by ity of mg tablet 00:00: mouth ([facility]) Medical times Branch daily. dicyclomine 2019-0 Yes [id number] 20mg Take 1 Univers (BENTYL) 20 5-07 tablet by ity of mg tablet 00:00: mouth ([facility]) Medical times Branch daily. dicyclomine 2019-0 Yes [id number] 20mg Take 1 Univers (BENTYL) 20 5-07 tablet by ity of mg tablet 00:00: mouth ([facility]) Medical times Branch daily. dicyclomine 2019-0 Yes [id number] 20mg Take 1 Univers (BENTYL) 20 5-07 tablet by ity of mg tablet 00:00: mouth ([facility]) Medical times Branch daily. dicyclomine 2019-0 Yes [id number] 20mg Take 1 Univers (BENTYL) 20 5-07 tablet by ity of mg tablet 00:00: mouth ([facility]) Medical times Branch daily. dicyclomine 2019-0 Yes [id number] 20mg Take 1 Univers (BENTYL) 20 5-07 tablet by ity of mg tablet 00:00: mouth ([facility]) Medical times Branch daily. dicyclomine 2019-0 Yes [id number] 20mg Take 1 Univers (BENTYL) 20 5-07 tablet by ity of mg tablet 00:00: mouth ([facility]) Medical times Branch daily. dicyclomine 2019-0 Yes [id number] 20mg Take 1 Univers (BENTYL) 20 5-07 tablet by ity of mg tablet 00:00: mouth ([facility]) Medical times Branch daily. dicyclomine 2019-0 Yes [id number] 20mg Take 1 Univers (BENTYL) 20 5-07 tablet by ity of mg tablet 00:00: mouth ([facility]) Medical times Branch daily. dicyclomine 2019-0 Yes [id number] 20mg Take 1 Univers (BENTYL) 20 5-07 tablet by ity of mg tablet 00:00: mouth ([facility]) Medical times Branch daily. dicyclomine 2019-0 Yes [id number] 20mg Take 1 Univers (BENTYL) 20 5-07 tablet by ity of mg tablet 00:00: mouth ([facility]) Medical times Branch daily. dicyclomine 2019-0 Yes [id number] 20mg Take 1 Univers (BENTYL) 20 5-07 tablet by ity of mg tablet 00:00: mouth ([facility]) Medical times Branch daily. dicyclomine 2019-0 Yes [id number] 20mg Take 1 Univers (BENTYL) 20 5-07 tablet by ity of mg tablet 00:00: mouth ([facility]) Medical times Branch daily. dicyclomine 2018-0 Yes [id number] 20mg Take 1 Univers (BENTYL) 20 5-07 tablet by ity of mg tablet 00:00: mouth [place] ([facility]) Medical times Branch daily. dicyclomine 2019-0 Yes [id number] 20mg Take 1 Univers (BENTYL) 20 5-07 tablet by ity of mg tablet 00:00: mouth [place] ([facility]) Medical times Branch daily. dicyclomine 2019-0 Yes [id number] 20mg Take 1 Univers (BENTYL) 20 5-07 tablet by ity of mg tablet 00:00: mouth [place] ([facility]) Medical times Branch daily. dicyclomine 2019-0 Yes [id number] 20mg Take 1 Univers (BENTYL) 20 5-07 tablet by ity of mg tablet 00:00: mouth [place] ([facility]) Medical times Branch daily. dicyclomine 2019-0 Yes [id number] 20mg Take 1 Univers (BENTYL) 20 5-07 tablet by ity of mg tablet 00:00: mouth [place] ([facility]) Medical times Branch daily. dicyclomine 2019-0 Yes [id number] 20mg Take 1 Univers (BENTYL) 20 5-07 tablet by ity of mg tablet 00:00: mouth ([facility]) Medical times Branch daily. dicyclomine 2018- Yes [id number] 20mg Take 1 Univers (BENTYL) 20 5-07 tablet by ity of mg tablet 00:00: mouth 4 ([facility]) Medical times Branch daily. dicyclomine 2018- Yes [id number] 20mg Take 1 Univers (BENTYL) 20 5-07 tablet by ity of mg tablet 00:00: mouth ([facility]) Medical times Branch daily. dicyclomine 2018- Yes [id number] 20mg Take 1 Univers (BENTYL) 20 5-07 tablet by ity of mg tablet 00:00: mouth [place] ([facility]) Medical times Branch daily. dicyclomine 2018- Yes [id number] 20mg Take 1 Univers (BENTYL) 20 5-07 tablet by ity of mg tablet 00:00: mouth [place] ([facility]) Medical times Branch daily. dicyclomine 2018- Yes [id number] 20mg Take 1 Univers (BENTYL) 20 5-07 tablet by ity of mg tablet 00:00: mouth [place] ([facility]) Medical times Branch daily. dicyclomine 2018- Yes [id number] 20mg Take 1 Univers (BENTYL) 20 5-07 tablet by ity of mg tablet 00:00: mouth [place] ([facility]) Medical times Branch daily. dicyclomine 2018- Yes [id number] 20mg Take 1 Univers (BENTYL) 20 5-07 tablet by ity of mg tablet 00:00: mouth [place] ([facility]) Medical times Branch daily. dicyclomine Yes [id number] 20mg Take 1 Univers (BENTYL) 20 5-07 tablet by ity of mg tablet 00:00: mouth [place] ([facility]) Medical times Branch daily. OMEGA 3 Yes None Univers ORAL 9-21 Entered ity of 20:48: [address] Branch OMEGA 3 Yes None Univers ORAL 9-21 Entered ity of 20:48: [address] Branch OMEGA 3 Yes None Univers ORAL 9-21 Entered ity of 20:48: [address] OMEGA 3 Yes None Univers ORAL 9-21 Entered ity of 20:48: [address] Branch OMEGA 3 Yes None Univers ORAL 9-21 Entered ity of 20:48: [address] OMEGA 3 2015- Yes None Univers ORAL 9-21 Entered ity of 20:48: [address] OMEGA 3 2015- Yes None Univers ORAL 9-21 Entered ity of 20:48: [address] OMEGA 3 2015- Yes None Univers ORAL 9-21 Entered ity of 20:48: [address] OMEGA 3 2015- Yes None Univers ORAL 9-21 Entered ity of 20:48: [address] OMEGA 3 2015- Yes None Univers ORAL 9-21 Entered ity of 20:48: [address] 3 2015- Yes None Univers ORAL 9-21 Entered ity of 20:48: [address] 3 2015- Yes None Univers ORAL 9-21 Entered ity of 20:48: [address] 3 2015- Yes None Univers ORAL 9-21 Entered ity of 20:48: [place] [id number] Yes None Univers ORAL 9-21 Entered ity of 20:48: [address] 3 2015- Yes None Univers ORAL 9-21 Entered ity of 20:48: [address] 3 2015- Yes None Univers ORAL 9-21 Entered ity of 20:48: [address] 3 2015- Yes None Univers ORAL 9-21 Entered ity of 20:48: [address] 3 2015- Yes None Univers ORAL 9-21 Entered ity of 20:48: [address] OMEGA 3 2015- Yes None Univers ORAL 9-21 Entered ity of 20:48: [address] OMEGA 3 2015- Yes None Univers ORAL 9-21 Entered ity of 20:48: [address] OMEGA 3 2015- Yes None Univers ORAL 9-21 Entered ity of 20:48: [address] OMEGA 3 2015- Yes None Univers ORAL 9-21 Entered ity of 20:48: [address] OMEGA 3 2015- Yes None Univers ORAL 9-21 Entered ity of 20:48: [address] OMEGA 3 2015- Yes None Univers ORAL 9-21 Entered ity of 20:48: [address] OMEGA 3 2015- Yes None Univers ORAL 9-21 Entered ity of 20:48: [address] OMEGA 3 Yes None Univers ORAL 9-21 Entered ity of 20:48: [address] OMEGA 3 Yes None Univers ORAL 9-21 Entered ity of 20:48: [address] OMEGA 3 Yes None Univers ORAL 9-21 Entered ity of 20:48: [address] OMEGA 3 Yes None Univers ORAL 9-21 Entered ity of 20:48: [address] OMEGA 3 Yes None Univers ORAL 9-21 Entered ity of 20:48: [address] OMEGA 3 Yes None Univers ORAL 9-21 Entered ity of 20:48: [address] OMEGA 3 Yes None Univers ORAL 9-21 Entered ity of 20:48: [address] OMEGA 3 Yes None Univers ORAL 9-21 Entered ity of 20:48: [address] OMEGA 3 Yes None Univers ORAL 9-21 Entered ity of 20:48: [address] 3 Yes None Univers ORAL 9-21 Entered ity of 20:48: [address] OMEGA 3 Yes None Univers ORAL 9-21 Entered ity of 20:48: [address] OMEGA 3 Yes None Univers ORAL 9-21 Entered ity of 20:48: [address] OMEGA 3 Yes None Univers ORAL 9-21 Entered ity of 20:48: [address] OMEGA 3 Yes None Univers ORAL 9-21 Entered ity of 20:48: [address] OMEGA 3 Yes None Univers ORAL 9-21 Entered ity of 20:48: [address] OMEGA 3 Yes None Univers ORAL 9-21 Entered ity of 20:48: [address] OMEGA 3 Yes None Univers ORAL 9-21 Entered ity of 20:48: [address] OMEGA 3 Yes None Univers ORAL 9-21 Entered ity of 20:48: [address] OMEGA 3 Yes None Univers ORAL 9-21 Entered ity of 20:48: [address] OMEGA 3 Yes None Univers ORAL 9-21 Entered ity of 20:48: [address] OMEGA 3 2015- Yes None Univers ORAL 9-21 Entered ity of 20:48: [address] OMEGA 3 Yes None Univers ORAL 9-21 Entered ity of 20:48: [address] OMEGA 3 Yes None Univers ORAL 9-21 Entered ity of 20:48: [address] OMEGA 3 Yes None Univers ORAL 9-21 Entered ity of 20:48: [address] OMEGA 3 Yes None Univers ORAL 9-21 Entered ity of 20:48: [address] OMEGA 3 Yes None Univers ORAL 9-21 Entered ity of 20:48: [address] OMEGA 3 Yes None Univers ORAL 9-21 Entered ity of 15:48: [address] OMEGA 3 Yes None Univers ORAL 9-21 Entered ity of 15:48: [address] OMEGA 3 Yes None Univers ORAL 9-21 Entered ity of 15:48: [address] OMEGA 3 Yes None Univers ORAL 9-21 Entered ity of 15:48: [address] OMEGA 3 Yes None Univers ORAL 9-21 Entered ity of 15:48: [address] PROPOXYPHEN 2006-08 Yes 1 Cap Oral Univers E 65 MG 08-21 Q4HPRN ity of ORAL CAP 00:00: [address] PROPOXYPHEN 2006-08 Yes 1 Cap Oral Univers E 65 MG 08-21 Q4HPRN ity of ORAL CAP 00:00: [address] PROPOXYPHEN 2006-08 Yes 1 Cap Oral Univers E 65 MG 08-21 Q4HPRN ity of ORAL CAP 00:00: [address] PROPOXYPHEN 2006- Yes 1 Cap Oral Univers E 65 MG 08-21 Q4HPRN ity of ORAL CAP 00:00: [address] PROPOXYPHEN 2006-08 Yes 1 Cap Oral Univers E 65 MG 02 Q4HPRN ity of ORAL CAP 00:00: [address] PROPOXYPHEN 2006- Yes 1 Cap Oral Univers E 65 MG 08-21 Q4HPRN ity of ORAL CAP 00:00: [address] PROPOXYPHEN 2006-08 Yes 1 Cap Oral Univers E 65 MG 08-21 Q4HPRN ity of ORAL CAP 00:00: [address] PROPOXYPHEN 2006-08 Yes 1 Cap Oral Univers E 65 MG 08-21 Q4HPRN ity of ORAL CAP 00:00: [place] 00 [facility] PROPOXYPHEN 2006- Yes 1 Cap Oral Univers E 65 MG - Q4HPRN ity of ORAL CAP 00:00: [place] 00 [facility] PROPOXYPHEN 2006- Yes 1 Cap Oral Univers E 65 MG 08-21 Q4HPRN ity of ORAL CAP 00:00: [address] PROPOXYPHEN 2006- Yes 1 Cap Oral Univers E 65 MG 08-21 Q4HPRN ity of ORAL CAP 00:00: [address] PROPOXYPHEN 2006- Yes 1 Cap Oral Univers E 65 MG 08-21 Q4HPRN ity of ORAL CAP 00:00: [address] PROPOXYPHEN 2006- Yes 1 Cap Oral Univers E 65 MG 08-21 Q4HPRN ity of ORAL CAP 00:00: [address] PROPOXYPHEN 2006- Yes 1 Cap Oral Univers E 65 MG 08-21 Q4HPRN ity of ORAL CAP 00:00: [address] PROPOXYPHEN 2006- Yes 1 Cap Oral Univers E 65 MG 08-21 Q4HPRN ity of ORAL CAP 00:00: [place] 00 [facility] PROPOXYPHEN 2006- Yes 1 Cap Oral Univers E 65 MG 08-21 Q4HPRN ity of ORAL CAP 00:00: [place] 00 [facility] PROPOXYPHEN 2006- Yes 1 Cap Oral Univers E 65 MG 08-21 Q4HPRN ity of ORAL CAP 00:00: [address] PROPOXYPHEN 2006- Yes 1 Cap Oral Univers E 65 MG 08-21 Q4HPRN ity of ORAL CAP 00:00: [place] 00 [facility] PROPOXYPHEN 2006- Yes 1 Cap Oral Univers E 65 MG - Q4HPRN ity of ORAL CAP 00:00: [place] 00 [facility] PROPOXYPHEN 2006- Yes 1 Cap Oral Univers E 65 MG - Q4HPRN ity of ORAL CAP 00:00: [place] 00 [facility] PROPOXYPHEN 2006- Yes 1 Cap Oral Univers E 65 MG - Q4HPRN ity of ORAL CAP 00:00: [address] PROPOXYPHEN 2006- Yes 1 Cap Oral Univers E 65 MG - Q4HPRN ity of ORAL CAP 00:00: [place] 00 Medical Branch PROPOXYPHEN 2006-08 Yes 1 Cap Oral Univers E 65 MG -02 Q4HPRN ity of ORAL CAP 00:00: [place] 00 [facility] PROPOXYPHEN 2006- Yes 1 Cap Oral Univers E 65 MG 08-21 Q4HPRN ity of ORAL CAP 00:00: [place] 00 [facility] PROPOXYPHEN 2006- Yes 1 Cap Oral Univers E 65 MG 08-21 Q4HPRN ity of ORAL CAP 00:00: [place] 00 [facility] PROPOXYPHEN 2006- Yes 1 Cap Oral Univers E 65 MG 08-21 Q4HPRN ity of ORAL CAP 00:00: [place] 00 [facility] PROPOXYPHEN 2006- Yes 1 Cap Oral Univers E 65 MG 08-21 Q4HPRN ity of ORAL CAP 00:00: [place] 00 [facility] PROPOXYPHEN 2006- Yes 1 Cap Oral Univers E 65 MG 08-21 Q4HPRN ity of ORAL CAP 00:00: [place] 00 [facility] PROPOXYPHEN 2006- Yes 1 Cap Oral Univers E 65 MG -02 Q4HPRN ity of ORAL CAP 00:00: [place] 00 Medical Branch PROPOXYPHEN 2006- Yes 1 Cap Oral Univers E 65 MG 02 Q4HPRN ity of ORAL CAP 00:00: [place] 00 [facility] PROPOXYPHEN 2006- Yes 1 Cap Oral Univers E 65 MG 08-21 Q4HPRN ity of ORAL CAP 00:00: [place] 00 [facility] PROPOXYPHEN 2006- Yes 1 Cap Oral Univers E 65 MG 02 Q4HPRN ity of ORAL CAP 00:00: [place] 00 [facility] PROPOXYPHEN 2006- 2020- No 1 Cap Oral Univers E 65 MG 08-21 12-10 Q4HPRN ity of ORAL CAP 00:00: 00:00 [place] 00 :00 [facility] Vital Signs Vital Name Observation Time Observation Value Comments Source Systolic blood 2021-05-04 17:10:00 94 mm[Hg] Univer sity of pressure [facility] Diastolic blood 2021-05-04 17:10:00 65 mm[Hg] Unive rsity of pressure [facility] Body weight 2021-05-04 17:10:00 53.978 kg Universi ty of [facility] BMI 2021-05-04 17:10:00 21.77 kg/m2 Universi ty of [place] [facility] Systolic blood 2021-01-11 14:29:00 112 mm[Hg] Univer sity of pressure [place] [facility] Diastolic blood 2021-01-11 14:29:00 60 mm[Hg] Unive rsity of pressure [place] [facility] Body weight 2021-01-11 14:29:00 50.349 kg Universi ty of [place] [facility] BMI 2021-01-11 14:29:00 20.30 kg/m2 Universi ty of [place] [facility] Systolic blood 2020-12-02 16:06:00 97 mm[Hg] Univer sity of pressure [place] [facility] Diastolic blood 2020-12-02 16:06:00 66 mm[Hg] Unive rsity of pressure [place] [facility] Heart rate 2020-12-02 16:06:00 80 /min Universi ty of [place] [facility] Body temperature 2020-12-02 16:06:00 36.17 Freya Univ ersity of [facility] Branch Respiratory rate 2020-12-02 16:06:00 18 /min Univ ersity of [place] [facility] Body weight 2020-12-02 16:06:00 51.256 kg Universi ty of [place] [facility] BMI 2020-12-02 16:06:00 20.67 kg/m2 Universi ty of [facility] Branch Oxygen saturation in 2020-12-02 16:06:00 95 /min University of Arterial blood by [facility] Pulse oximetry Branch Systolic blood 2020-12-02 16:06:00 97 mm[Hg] Univer sity of pressure [facility] Branch Diastolic blood 2020-12-02 16:06:00 66 mm[Hg] Unive rsity of pressure [facility] Branch Heart rate 2020-12-02 16:06:00 80 /min Universi ty of [place] [facility] Body temperature 2020-12-02 16:06:00 36.17 Freya Univ ersity of [facility] Branch Respiratory rate 2020-12-02 16:06:00 18 /min Univ ersity of [place] [facility] Body weight 2020-12-02 16:06:00 51.256 kg Universi ty of [place] [facility] BMI 2020-12-02 16:06:00 20.67 kg/m2 Universi ty of [place] [facility] Oxygen saturation in 2020-12-02 16:06:00 95 /min University of Arterial blood by [place] [facility] Pulse oximetry Branch Systolic blood 2020-12-02 13:23:00 91 mm[Hg] Univer sity of pressure [place] [facility] Diastolic blood 2020-12-02 13:23:00 63 mm[Hg] Unive rsity of pressure [place] [facility] Heart rate 2020-12-02 13:09:00 81 /min Universi ty of [place] [facility] Body temperature 2020-12-02 13:09:00 35.94 Freya Univ ersity of [place] [facility] Respiratory rate 2020-12-02 13:09:00 17 /min Univ ersity of [place] [facility] Body height 2020-12-02 13:09:00 157.5 cm Universi ty [facility] [place] [facility] Body weight 2020-12-02 13:09:00 51.256 kg Universi ty [facility] [place] [facility] BMI 2020-12-02 13:09:00 20.67 kg/m2 Universi ty of [place] [facility] Oxygen saturation in 2020-12-02 13:09:00 99 /min University of Arterial blood by [place] [facility]sie Pulse oximetry Branch Systolic blood 2020-12-02 13:23:00 91 mm[Hg] Univer sity of pressure [place] [facility] Diastolic blood 2020-12-02 13:23:00 63 mm[Hg] Unive rsity of pressure [place] [facility] Heart rate 2020-12-02 13:09:00 81 /min Universi ty of [place] [facility] Body temperature 2020-12-02 13:09:00 35.94 Freya Univ ersity of [place] [facility] Respiratory rate 2020-12-02 13:09:00 17 /min Univ ersity of [place] [facility] Body height 2020-12-02 13:09:00 157.5 cm Universi ty [facility] [place] [facility] Body weight 2020-12-02 13:09:00 51.256 kg Universi ty [facility] [place] [facility] BMI 2020-12-02 13:09:00 20.67 kg/m2 Universi ty [facility] [place] [facility] Oxygen saturation in 2020-12-02 13:09:00 99 /min University of Arterial blood by [place] [facility]sie Pulse oximetry Branch Systolic blood 2020-11-27 02:14:00 98 mm[Hg] Univer sity of pressure [place] [facility] Diastolic blood 2020-11-27 02:14:00 58 mm[Hg] Unive rsity of pressure [place] [facility] Heart rate 2020-11-27 02:14:00 85 /min Universi ty of [place] [facility] Body temperature 2020-11-27 02:14:00 36.67 Freya Univ ersity of [place] [facility] Respiratory rate 2020-11-27 02:14:00 18 /min Univ ersity of [place] [facility] Body weight 2020-11-27 02:14:00 52.164 kg Universi ty [facility] [place] [facility] BMI 2020-11-27 02:14:00 21.03 kg/m2 Universi ty [facility] [place] [facility] Oxygen saturation in 2020-11-27 02:14:00 100 /min University of Arterial blood by [place] [facility]i rosie Pulse oximetry Branch Systolic blood 2020-11-27 02:14:00 98 mm[Hg] Univer sity of pressure [place] [facility] Diastolic blood 2020-11-27 02:14:00 58 mm[Hg] Unive rsity of pressure [place] [facility] Heart rate 2020-11-27 02:14:00 85 /min Universi ty of [place] [facility] Body temperature 2020-11-27 02:14:00 36.67 Freya Univ ersity of [place] [facility] Respiratory rate 2020-11-27 02:14:00 18 /min Univ ersity of [place] [facility] Body weight 2020-11-27 02:14:00 52.164 kg Universi ty [facility] [place] [facility] BMI 2020-11-27 02:14:00 21.03 kg/m2 Universi ty [facility] [place] [facility] Oxygen saturation in 2020-11-27 02:14:00 100 /min University of Arterial blood by [place] [facility]i rosie Pulse oximetry Branch Systolic blood 2020-09-01 18:56:00 100 mm[Hg] Univer sity of pressure [place] [facility] Diastolic blood 2020-09-01 18:56:00 60 mm[Hg] Unive rsity of pressure [place] [facility] Body weight 2020-09-01 18:56:00 52.164 kg Universi ty of [place] [facility] BMI 2020-09-01 18:56:00 21.03 kg/m2 Universi ty [facility] [place] [facility] Systolic blood 2020-09-01 18:56:00 100 mm[Hg] Univer sity of pressure [place] [facility] Diastolic blood 2020-09-01 18:56:00 60 mm[Hg] Unive rsity of pressure [place] [facility] Body weight 2020-09-01 18:56:00 52.164 kg Universi ty of [place] [facility] BMI 2020-09-01 18:56:00 21.03 kg/m2 Universi ty [facility] [place] [facility] Heart rate 2020-07-28 19:28:00 76 /min Universi ty [facility] [place] [facility] Systolic blood 2020-07-28 19:28:00 80 mm[Hg] Univer sity of pressure [place] [facility] Diastolic blood 2020-07-28 19:28:00 54 mm[Hg] Unive rsity of pressure [place] [facility] Respiratory rate 2020-07-28 19:26:00 18 /min Univ ersity of [place] [facility] Body height 2020-07-28 19:26:00 157.5 cm Universi ty [facility] [place] [facility] Body weight 2020-07-28 19:26:00 52.073 kg Universi ty [facility] [place] [facility] BMI 2020-07-28 19:26:00 21.00 kg/m2 [facility]i ty [facility] [place] [facility] Systolic blood 2020-07-21 19:22:00 80 mm[Hg] Univer sity of pressure [place] [facility] Diastolic blood 2020-07-21 19:22:00 60 mm[Hg] Unive rsity of pressure [place] [facility] Body weight 2020-07-21 19:22:00 54.885 kg Universi ty [facility] [place] [facility] BMI 2020-07-21 19:22:00 21.43 kg/m2 [facility]i ty [facility] [place] [facility] Systolic blood 2020-06-17 19:27:00 104 mm[Hg] Univer sity of pressure [place] [facility] Diastolic blood 2020-06-17 19:27:00 70 mm[Hg] Unive rsity of pressure [place] [facility] Heart rate 2020-06-17 19:27:00 79 /min Universi ty [facility] [place] [facility] Body height 2020-06-17 19:27:00 160 cm [facility]i ty [facility] [place] [facility] Body weight 2020-06-17 19:27:00 55.067 kg [facility]i ty [facility] [place] [facility] BMI 2020-06-17 19:27:00 21.51 kg/m2 [facility]i ty [facility] [place] [facility] Systolic blood 2020-02-26 15:31:00 77 mm[Hg] Univer sity of pressure [facility] Diastolic blood 2020-02-26 15:31:00 52 mm[Hg] Unive rsity of pressure [facility] Heart rate 2020-02-26 15:31:00 69 /min Universi ty [facility] Body temperature 2020-02-26 15:31:00 36.11 Freya [facility] ersity [facility] Respiratory rate 2020-02-26 15:31:00 18 /min [facility] Body height 2020-02-26 15:31:00 157.5 cm Universi ty of [facility] Body weight 2020-02-26 15:31:00 53.978 kg Universi ty [facility] BMI 2020-02-26 15:31:00 21.77 kg/m2 [facility] Procedures Procedure Date / Time Performed Performing Clinician Sour e ASSIGNMENT OF BENEFITS 2021-05-04 17:07:58 Doctor Unassigned, No [facility] EXTERNAL PROVIDER 2020-12-23 05:01:00 Doctor Unassigned, No Univ ersity of [place] RECORDS [facility] [place] EXTERNAL PROVIDER 2020-12-23 05:01:00 Doctor Unassigned, No Univ ersity [facility] RECORDS [facility] URINALYSIS 2020-12-02 13:53:00 Kasey Arita [facility] POCT URINALYSIS 2020-12-02 13:28:00 Kasey Arita [facility] XR HUMERUS 2 VW LEFT 2020-11-27 03:15:30 Ernestina Torrez Uni versity [facility] XR RIBS 4+ VW LEFT 2020-11-27 03:15:30 [facility] CONS[facility]/REFUSAL FOR 2020-11-27 02:01:49 Doctor Unassigned, No Un iversity of [place] DIAGNOSIS AND Name Medical Branch TREATMENT NOTICE OF PRIVACY 2020-11-27 02:01:34 Doctor Unassigned, No Univ ersity of [place] PRACTICES Name [facility] [place] HOME HEALTH - OTHER 2020-08-19 06:01:00 Doctor Unassigned, No Un iversity of [facility] Medical Branch XR SHOULDER <2 VW LEFT 2020-07-28 19:51:52 Consuelo Gee Uni versity of [facility] HOME HEALTH - OTHER 2020-07-27 06:01:00 Doctor Unassigned, No Un iversity of [facility] Medical Branch XR HUMERUS 2 VW LEFT 2020-07-21 21:05:13 Castro Blue ity of [facility] EXTERNAL PROVIDER 2020-06-30 06:01:00 Doctor Unassigned, No Univ ersity of [place] RECORDS Name [facility] [place] POCT URINALYSIS 2020-06-17 19:49:00 Castro Blue o f [facility] EXTERNAL PROVIDER 2019-03-19 05:01:00 Doctor Unassigned, No Univ [facility]ity of [place] RECORDS Name [facility] [place] Plan of Care Planned Activity Planned Date Details Comments Source Future Scheduled 2021-06-17 Depression screening Uni versity of Test 00:00:00 (procedure) [code = [facility] dical 365483119] Branch Future Scheduled 2021-02-16 INFLUENZA VACCINE Postponed from Univ ersity of Test 00:00:00 (#1) [code = 04/20/2020 [facility] INFLUENZA VACCINE (Refused) Branch (#1)] Future Scheduled 2014 Screening for University of Test 00:00:00 malignant neoplasm [place] [facility] ical of lung (procedure) Branch [code = 808419325] Future Scheduled 2009 Screening for occult Uni versity of Test 00:00:00 blood in feces [facility] (procedure) [code = Branch 709301638] Future Scheduled 2009 Stool DNA-based Universi ty of Test 00:00:00 colorectal cancer [facility] screening Branch (procedure) [code = 575795591419378] Future Scheduled 2009 Flexible fiberoptic Univ ersity of Test 00:00:00 sigmoidoscopy [facility] (procedure) [code = Branch 65380479] Future Scheduled 2009 Screening for University of Test 00:00:00 malignant neoplasm [place] [facility] ical of colon (procedure) Branch [code = 163261238] Future Scheduled 2009 Screening for University of Test 00:00:00 malignant neoplasm [place] [facility] ical of colon (procedure) Branch [code = 263162245] Future Scheduled 2009 Zoster Recombinant Unive rsity of Test 00:00:00 Vaccine (SHINGRIX) [facility] ical (1 of 2) [code = Branch Zoster Recombinant Vaccine (SHINGRIX) (1 of 2)] Future Scheduled 2009-06-07 Screening for University of Test 00:00:00 malignant neoplasm [place] [facility] ical of cervix Branch (procedure) [code = 023042048] Future Scheduled 2007-07-25 Screening for University of Test 00:00:00 malignant neoplasm [place] [facility] ical of breast Branch (procedure) [code = 438651685] Future Scheduled 1978 DTaP,Tdap,and Td Univers ity of Test 00:00:00 Vaccines (1 - Tdap) [facility] dical [code = Branch DTaP,Tdap,and Td Vaccines (1 - Tdap)] Future Scheduled 1965 PNEUMOCOCCAL 0-64 Univer sity of Test 00:00:00 YEARS COMBINED [place] [facility] SERIES (1 of 3 - Branch PCV13) [code = PNEUMOCOCCAL 0-64 YEARS COMBINED SERIES (1 of 3 - PCV13)] Encounters Start End Encounter Admission Attending Care Care Encounter Source Date/Time Date/Time Type Type Clinicians Facility Department ID 2021-06-19 Emergency [facility] [id number] Univers 13:07:02 ity of [facility] 2021-06-19 Emergency [facility] [id number] Univers 11:59:00 ity [facility] 2021-08-03 2021-08-03 [id number] Univers 12:00:00 12:00:00 CASTRO [id number] ity [facility] 2021-06-28 2021-06-28 [facility]phone [facility] [id number] Univers 00:00:00 00:00:00 Castro [employer] [id number] it y of [place] [id number] Mikey as BRENTON?BLEA [phone] Va dical [address] MEDICAL OFFICE BUILDING 2021-06-24 2021-06-24 [facility] [id number] Univers 00:00:00 00:00:00 Castro HEALTH [id number] it y of [place] [id number] Mikey as BRENTON?BLEA [phone] Va jaskaran [address] [place] MEDICAL OFFICE BUILDING 2021-05-04 2021-05-04 Office [facility] [id number] Univers 12:08:03 12:23:03 Visit Castro [facility] [id number] it y of [place] [id number] Mikey as Brenton?Blea [phone] Va jaskaran harris [address] [place] [address] Office Building 2021-05-04 2021-05-04 Outpatient Reshma BLUE [facility] [id number] Univers 12:00:00 12:00:00 CASTRO [id number] [facility] 2021-05-04 2021-05-04 Outpatient Reshma BLUE [facility] [id number] Univers 12:00:00 12:00:00 [facility] 2021-05-04 2021-05-04 Orders Doctor KV[facility] 1.2.840.114 [id number] Univers 00:00:00 00:00:00 Only Unassigned, ROLANDO [id number] [facility] [id number] Mikey as [phone] [address] 2021-02-02 2021-02-02 Outpatient [facility], [facility] [id number] [place] [address] 00:00:00 00:00:[address] 2021-02-01 2021-02-01 [facility] 1.2.840.114 [id number] Univers 00:00:00 00:00:00 [facility] [id number] it y of [place] [id number] Mikey as Professio [phone] Va jaskaran [address] Office Building One 2021-01-27 2021-01-27 Outpatient [facility] [id number] [place] 00:00:00 00:00:[address] NADIM [address] 2021-01-11 2021-01-11 [facility] 1.2.840.114 [id number] Univers 09:28:35 09:43:35 Visit [facility] [id number] it y of [place] [id number] Mikey as Professio [phone] Va dical nal [facility] One 2021-01-11 2021-01-11 Outpatient Reshma BLUE [facility] [id number] Univers 09:30:00 09:30:00 CASTRO [id number] [facility] 2021-01-11 2021-01-11 Outpatient Reshma BLUE [facility] [id number] Univers 09:30:00 09:30:00 [facility] 2020-12-23 2020-12-23 Orders Doctor KV[facility] 1.2.840.114 [id number] Univers 00:00:00 00:00:00 Only Unassigned, ROLANDO [id number] ity of [place] [facility] [id number] Mikey as [phone] [address] 2020-12-23 2020-12-23 Orders Doctor KVNG 1.2.840.114 [id number] 00:00:00 00:00:00 Only Unassigned, ROLANDO [id number] [place] [facility] [id number] [id number] [id number] 2020-12-06 2020-12-06 Outpatient Reshma [place], [facility] [id number] Univers 10:15:00 10:15:00 CASTRO [id number] [facility] 2020-12-06 2020-12-06 Outpatient Reshma BLUE [facility] [id number] Univers 10:15:00 10:15:00 [facility] 2020-12-04 2020-12-06 Inpatient YASIR, [facility] [id number] [place] 00:00:00 00:00:00 [address]ENN[address]ER [address] 2020-12-05 2020-12-05 [facility] [id number] Univers 00:00:00 00:00:00 [facility] [id number] it y of [place] [id number] Mikey as Professio [phone] [facility] nal 0[facility] One 2020-12-05 2020-12-05 Telephone Mirza [facility] [id number] 00:00:00 00:00:00 [facility] [id number] [place] [id number] Professio [phone] [place] [address] Office Building One 2020-12-02 2020-12-02 [facility] [id number] Univers 10:56:00 12:00:00 Lori R [place] [id number] i ty of [place] [id number] [facility] [phone] [place] [id number] [place] 2020-12-02 2020-12-02 [facility] [id number] 10:56:00 12:00:00 Lori R [place] [id number] [place] [id number] [place] [phone] [facility] 2020-12-02 2020-12-02 Urgent Provider, [facility] 1.2.840.114 [id number] Univers 07:50:30 09:40:15 Care Sarah, [facility] [id number] ity of [place] [id number] Mikey Professio [phone] Va dical [address] Office Building One 2020-12-02 2020-12-02 Urgent Provider, [facility] [id number] 07:50:30 09:40:15 Care [facility] [id number] Care [place] [id number] Professio [phone] [place] [address] Office Building One 2020-12-02 2020-12-02 Outpatient R [facility] [id number] Univers 09:20:00 09:20:00 [id number] ity [facility] 2020-12-02 2020-12-02 Outpatient [facility] [id number] Univers 09:20:00 09:20:00 NICHOLE ity [facility] 2020-12-02 2020-12-02 [facility]phone [facility] [id number] Univers 00:00:00 00:00:00 [facility] [id number] it y of [place] [id number] Mikey as Professio [phone] [address] Office [facility] One 2020-12-02 2020-12-02 Telephone [facility] [id number] 00:00:00 00:00:00 [facility] [id number] [place] [id number] Professio [phone] [place] [address] Office Building One 2020-11-30 2020-11-30 Telephone [facility] [id number] Univers 00:00:00 00:00:00 [facility] [id number] it y of [place] [id number] Mikey as Professio [phone] [address] One 2020-11-30 2020-11-30 Telephone [facility] [id number] 00:00:00 00:00:00 [facility] [id number] [place] [id number] Professio [phone] [address] 2020-11-26 2020-11-27 Emergency [facility] 1.2.840.114 [id number] Univers 21:15:00 00:04:00 Ernestina Romero [id number] ity of [place] [id number] [facility] [phone] [address] 2020-11-26 2020-11-27 Emergency [facility] 1.2.840.114 [id number] 21:15:00 00:04:00 Ernestina Romero 350.1.13.10 [place] 4.2.7.2.686 [place] [phone] [facility] 2020-11-27 2020-11-27 Nurse Hemalatha CALDERON 1.2.840.114 [id number] 00:00:00 00:00:00 Triage ROLANDO Ring 350.1.13.10 [facility] 4.2.7.2.686 [phone] [id number] 2020-11-27 2020-11-27 Nurse Hemalatha CALDERON 1.2.840.114 [id number] Univers 00:00:00 00:00:00 Triage ROLANDO Ring 350.1.13.10 ity of [facility] 4.2.7.2.686 Mikey as [phone] [address] 2020-09-22 2020-09-22 [facility]phone [facility] [id number] 00:00:00 00:00:00 [facility] 350.1.13.10 [place] 4.2.7.2.686 Professio [phone] [place] [address] [address] 2020-09-22 2020-09-22 Telephone [facility] 1.2.681.219 [id number] Univers 00:00:00 00:00:00 [facility] 350.1.13.10 it y of [place] 4.2.7.2.686 Mikey as Professio [phone] [address] Office [address] One 2020-09-01 2020-09-01 [facility] 1.2.840.114 [id number] 12:28:02 12:43:02 Visit [facility] 350.1.13.10 [place] 4.2.7.2.686 Professio [phone] [place] [address] [address] 2020-09-01 2020-09-01 Office [facility] 1.2.840.114 [id number] Univers 12:28:02 12:43:02 Visit [facility] 350.1.13.10 it y of [place] 4.2.7.2.686 Mikey as Professio [phone] [address] Office Building One 2020-09-01 2020-09-01 Outpatient Reshma [facility] [id number] -20 Univers 12:00:00 12:00:00 CASTRO [id number] ity of [facility] 2020-09-01 2020-09-01 Outpatient Reshma [facility] [id number] Univers 12:00:00 12:00:00 CASTRO ity of [facility] 2020-08-23 2020-08-23 Telephone [facility] [id number] [id number] Univers 00:00:00 00:00:00 [facility] 350.1.13.10 it y of [place] 4.2.7.2.686 Mikey as Professio [phone] [place] dical nal [address] [place] Office [facility] 2020-08-19 2020-08-19 Orders Doctor KVNG 1.2.840.114 [id number] Univers 00:00:00 00:00:00 Only Unassigned, ROLANDO 350.1.13.10 ity of [place] [facility] 4.2.7.2.686 Mikey as [phone] [address] 2020-07-29 2020-07-29 [facility]phone [facility] [id number] Univers 00:00:00 00:00:00 [facility] 350.1.13.10 it y of [place] 4.2.7.2.686 Mikey as Professio [phone] [place] dical nal 044 [facility] [place] 2020-07-28 2020-07-[address] [facility] 1.2.840.114 [id number] Univers 13:51:50 23:59:00 Encounter [facility] 350.1.13.10 ity of Surgical 4.2.7.2.686 Mikey as Specialti [phone] Va dical es 809 [facility] 2020-07-28 2020-07-28 [facility] [id number] 5L-20 Univers 14:15:00 14:15:00 CONUSELO [id number] ity [facility] 2020-07-28 2020-07-28 [facility] [id number] Univers 14:15:00 14:15:00 CONSUELO ity [facility] 2020-07-28 2020-07-[address] [facility] [id number] Univers 13:19:49 14:14:10 Visit [facility] 350.1.13.10 it y of Surgical 4.2.7.2.686 Mikey as Specialti [phone] [place] dical es 198 [facility] 2020-07-27 2020-07-27 Orders Doctor KVNG 1.2.840.114 [id number] Univers 00:00:00 00:00:00 Only Unassigned, ROLANDO 350.1.13.10 ity of [place] [facility] 4.2.7.2.686 Mikey as [phone] [facility] [address] [place] 2020-07-21 2020-07-21 Hospital [facility] 1.2.840.114 [id number] Univers 14:30:00 23:59:00 Encounter Castro Romero 350.1.13.10 ity of [place] 4.2.7.2.[place] [phone] [facility] [address] [place] 2020-07-21 2020-07-21 Office [facility] 1.2.840.114 [id number] Univers 13:10:30 13:40:30 Visit [facility] 350.1.13.10 it y of [place] 4.2.7.2.686 Mikey as Professio [phone] [place] dical nal [address] [place] Office [facility] 2020-07-21 2020-07-21 [facility]patient [facility] [id number] -20 Univers 13:30:00 13:30:00 [facility] 2020-07-21 2020-07-21 [facility] [id number] Univers 13:30:00 13:30:00 CASTRO [facility] 2020-07-09 2020-07-09 [facility]phone [facility] [id number] Univers 00:00:00 00:00:00 [facility] 350.1.13.10 it y of [place] 4.2.7.2.686 Mikey as Professio [phone] [place] dical nal [address] [place] Office [facility] 2020-07-05 2020-07-05 [facility] [id number] -20 Univers 14:30:00 14:30:00 CASTRO [id number] [facility] 2020-07-05 2020-07-05 [facility] [id number] Univers 14:30:00 14:30:00 ACSTRO ity [facility] 2020-07-05 2020-07-05 Telephone [facility] [id number] [id number] Univers 00:00:00 00:00:00 [facility] 350.1.13.10 it y of [place] 4.2.7.2.686 Mikey as Professio [phone] [address] Office [address] One 2020-06-29 2020-07-04 Inpatient AKINS, [facility] [id number] [place] 00:00:00 00:00:[address] 2020-06-30 2020-06-30 Orders Doctor KVNG 1..840.114 [id number] [facility] 00:00:00 00:00:00 Only Unassigned, ROLANDO 350.1.13.10 ity of [place] [facility] 4.2.7.2.686 Mikey as [phone] [address] 2020-06-22 2020-06-22 Outpatient Reshma VÁZQUEZ [facility] [id number] -20 Univers 10:00:00 10:00:00 SENDIL [id number] ity [facility] 2020-06-22 2020-06-22 Outpatient R KATHIE [facility] [id number] Univers 10:00:00 10:00:00 SENDIL [facility] 2020-06-22 2020-06-22 Telephone [facility] [id number] Univers 00:00:00 00:00:00 [facility] 350.1.13.10 it y of [place] 4.2.7.2.686 [place]key as Professio [phone] [address] Office [facility] One 2020-06-22 2020-06-22 Telephone [facility] 1.2.376.805 [id number] Univers 00:00:00 00:00:00 [facility] 350.1.13.10 it y of [place] 4.2.7.2.686 [place]key as Professio [phone] [address] Office [address] One 2020-06-21 2020-06-21 Telephone [facility] 1.2.487.420 [id number] Univers 00:00:00 00:00:00 [facility] 350.1.13.10 it y of [place] 4.2.7.2.686 Mikey as Professio [phone] [address] Office [facility] 2020-06-17 2020-06-17 Office Mirza [facility] 1.2.840.114 [id number] Univers 14:05:17 14:53:39 Visit [facility] 350.1.13.10 it y of [place] 4.2.7.2.686 [place]key as Professio [phone] [address] Office [facility] One 2020-06-17 2020-06-17 Outpatient MIRZA [facility] [id number] -[id number] Univers 14:30:00 14:30:00 CASTRO [id number] [facility] 2020-06-17 2020-06-17 Outpatient R MIRZA [facility] [id number] Univers 14:30:00 14:30:00 CASTRO tam [facility] 2020-06-14 2020-06-14 Telephone [facility] 1.2.047.891 [id number] Univers 00:00:00 00:00:00 [facility] 350.1.13.10 it y of [place] 4.2.7.2.686 [place]key as Professio [phone] [address] 2020-06-01 2020-06-01 [facility]ill [facility] 1.2.840.114 [id number] Univers 00:00:00 00:00:00 Castro [facility] 350.1.13.10 it y of [place] 4.2.7.2.686 [place]key as Professio [phone] [address] Office [facility] 2020-03-17 2020-03-17 Telephone [facility] [id number] [id number] Univers 00:00:00 00:00:00 Castro Romero 350.1.13.10 [place] [phone] [address] 2020-03-11 2020-03-11 Outpatient MIRZA [facility] [id number] -20 Univers 12:00:00 12:00:00 CASTRO [id number] ity [facility] 2020-02-26 2020-02-26 Outpatient MIRZA [facility] [id number] -20 Univers 12:00:00 12:00:00 CASTRO ity [facility] 2020-02-26 2020-02-26 Outpatient Reshma [facility] [id number] Univers 12:00:00 12:00:00 CASTRO tam [facility] 2020-02-26 2020-02-26 Office [facility] 1.2.840.114 [id number] Univers 10:19:41 10:34:41 Visit Castro Nick 350.1.13.10 i [place].2.[place] [phone] [address] 2020-02-26 2020-02-26 Outpatient Reshma [facility] [id number] Univers 10:15:00 10:15:00 CASTRO villalta [facility] 2020-02-23 2020-02-23 [facility] 1.2.840.114 [id number] Univers 00:00:00 00:00:00 [facility] 350.1.13.10 it y of [place] 4.2.7.2.686 Mikey as Professio [phone] [address] One 2019-11-21 2019-11-21 Telephone Mirza [facility] [id number] [id number] Univers 00:00:00 00:00:00 Castro [facility] 350.1.13.10 it y of [place] 4.2.7.2.686 Mikey as Professio [phone] [address] Office Building One 2019-03-19 2019-03-19 Orders Doctor KVNG 1.2.840.114 [id number] Univers 00:00:00 00:00:00 Only Unassigned, ROLANDO 350.1.13.10 ity of [place] [facility] 4.2.7.2.686 Mikey as [phone] [address] Results Test Description Test Time Test Comments Results Result Comments Source SARS-CoV-2 (COVID-19) RNA [Presence] in Respiratory sp ecimen by 2020-12-04 09:35:29 TALIA with probe detection Test Item Value Reference Range Interpretation Comme nts SARS-CoV-2 (COVID-19) RNA [Presence] in Respiratory Not detected No t-Detected specimen by TALIA with probe detection (test code = 78439-6) [id number] 17:06:17 Test Item Value Reference Range Interpretation Comments APPEARANCE (test code = Clear Clear 1110877815) COLOR (test code = Yellow Yellow 1845289905) PH (test code = 4.8-8.0 4495130060) SP GRAVITY (test code = 1.003-1.030 5549598405) GLU U QUAL (test code = Normal Normal 0821182816) BLOOD (test code = 1+ Negative A 0848047945) KETONES (test code = Negative Negative 9929013811) PROTEIN (test code = Negative Negative 2887-8) UROBILIN (test code = Normal Normal 3163696315) BILIRUBIN (test code = Negative Negative 4245361909) NITRITE (test code = Negative Negative 3593382507) LEUK JED (test code = Negative Negative 9296130817) RBC/HPF (test code = See_Comment [Autom ated message] 2172747527) The system [employer] generated this result transmitted ref erence range: 0 - 3 HP F. The reference range was not used to int erpret this result as normal/abnormal . WBC/HPF (test code = <1 See_Comment [Autom ated message] 1708585434) The system [employer] generated this result transmitted ref erence range: 0 - 5 HP F. The reference range was not used to int erpret this result as normal/abnormal . BACTERIA (test code = Negative Negative 7783954591) SQ EPITH (test code = HPF 8808542970) HYAL CAST (test code = See_Comment H [Aut omated message] 8714933647) The system [employer] generated this result transmitted ref erence range: <=2 LPF. The reference range was not used to int erpret this result as normal/abnormal . Lab Interpretation (test Abnormal code = 23533-3) [facility] URINALYSIS W SPECIFIC [id number] 13:39:00 Test Item Value Reference Range Interpretation [...] U APPEAR (test code = clear 3267) [facility] <2 [id number] 20:51:37 Healing 3-part proximal humerus fractureUnWilbarger General HospitalXR HUMERUS 2 [facility] [id number] 21:07:59HISTORY: Fracture. FINDINGS: AP and lateral views [...] in the proximal shaft of left humerus. Ncmb, Radiant Results Inft User - 07/21/2020 3:09 [...] in the proximal shaft of left humerus. [facility] System[facility]ARS[facility]CoV-2 (COVID-19) RNA [Presence] in Respiratory specimen by TALIA with probe [id number] 23:17:05 Test Item Value Reference Range Interpretation Comments SARS-CoV-2 (COVID-19) RNA Not detected Not-Detected [Presence] in Respiratory specimen by TALIA with probe detection (test code = 12542-0) POCT URINALYSIS W SPECIFIC [id number] 19:51:00 Test Item Value Reference Range Interpretation [...] 3266) Lab Interpretation (test Abnormal code = 58952-7) [facility] URINALYSIS W SPECIFIC [id number] 19:51:00 Test Item Value Reference Range Interpretation [...] 3267) Lab Interpretation (test Abnormal code = 81248-6) [facility]
[2021-07-11] MEDS ORDERED: ONDANSETRON 4 MG (ODT) TAB ONE (19:25)
[2021-07-11] MEDS ORDERED: MORPHINE 4 MG/ML SYR ONE (19:25)
--- NOTE | 2021-07-11 20:11 | ER ---
Nurse's Notes [facility] Name: Lise Loera Age: 60 yrs Sex: Female : 1960 Arrival Date: 07/11/2021 Time: 17:50 Bed 11 Private MD: Diagnosis: Fracture of upper end of humerus Presentation: 07/11 18:24 Chief complaint: Patient states: I was walking my dog this evening and the dog took off ld1 running and I fell on my right arm. Pt c/o SRINIVAS pain. Coronavirus screen: At this time, the client does not indicate any symptoms associated with coronavirus-19. Ebola Screen: No symptoms or risks identified at this time. Initial Sepsis Screen: Does the patient meet any 2 criteria? No. Patient's initial sepsis screen is negative. Does the patient have a suspected source of infection? No. Patient's initial sepsis screen is negative. Risk Assessment: Do you want to hurt yourself or someone else? Patient reports no desire to harm self or others. Onset of symptoms was July 11, 2021. 18:24 Method Of Arrival: Ambulatory ld1 18:24 Acuity: ESTRELLITA 3 ld1 Triage Assessment: 18:25 General: Appears in no apparent distress. uncomfortable, Behavior is cooperative, ld1 appropriate for age, anxious. Pain: Complains of pain in right bicep Pain does not radiate. Pain currently is 9 out of 10 on a pain scale. Quality of pain is described as pressure, sharp, stabbing, throbbing, Pain began suddenly, Is continuous. EENT: No signs and/or symptoms were reported regarding the EENT system. Neuro: Level of Consciousness is awake, alert, obeys commands, Oriented to person, place, time, situation, Appropriate for age. Cardiovascular: Capillary refill < 3 seconds Patient's skin is warm and dry. Respiratory: Airway is patent Respiratory effort is even, unlabored, Respiratory pattern is regular, symmetrical. GI: Abdomen is flat, non-distended. : No signs and/or symptoms were reported regarding the genitourinary system. Derm: No signs and/or symptoms reported regarding the dermatologic system. Musculoskeletal: Reports pain in right bicep. Injury Description: Fell on right upper arm. Historical: - Allergies: 18:25 Codeine; ld1 18:25 Eliquis; ld1 18:25 PENICILLINS; ld1 18:25 Tylenol; ld1 - Home Meds: 18:25 amiodarone 100 mg Oral tab 1 tab 2 times per day [Active]; Aspirin EC Oral [Active]; ld1 Entresto 49-51 mg Oral tab [Active]; Lasix 20 mg Oral tab 60 mg in am, 40 mg in pm [Active]; potassium chloride 10 mEq Oral cpER 1 cap once daily [Active]; Xanax 2 mg Oral tab 1 tab 3 times per day [Active]; - PMHx: 18:25 ADD/ADHD; Anxiety; Atrial Fib; cancer - skin; Cancer, Breast; CHF; Hypertension; ld1 Myocardial infarction; Pacemaker; CAD; - Immunization history:: Adult Immunizations up to date. - Social history:: Smoking status: Patient denies any tobacco usage or history of. Screenin:48 Abuse screen: Denies threats or abuse. Denies injuries from another. Nutritional ld1 screening: No deficits noted. Tuberculosis screening: No symptoms or risk factors identified. Fall Risk None identified. Vital Signs: 18:24 BP 101 / 69; Pulse 60; Resp 17; Temp 98.3(O); Pulse Ox 99% on R/A; Weight 61.23 kg; ld1 Height 5 ft. 3 in. (160.02 cm); Pain 9/10; 18:24 Body Mass Index 23.91 (61.23 kg, 160.02 cm) ld1 ED Course: 17:50 Patient arrived in ED. as 18:19 Enrrique Johnson PA is PHCP. jr8 18:19 Mo Vanessa MD is Attending Physician. jr8 18:24 Charline Goldberg RN is Primary Nurse. ld1 18:25 Triage completed. ld1 18:25 Arm band placed on right wrist. ld1 20:06 XRAY Humerus RIGHT In Process Unspecified. EDMS 20:10 Husam Serrano MD is Referral Physician. jr8 20:48 No provider procedures requiring assistance completed. Patient did not have IV access ld1 during this emergency room visit. Administered Medications: 19:33 Drug: morphine 4 mg Route: IM; Site: Ventrogluteal RIGHT; jh5 19:33 Drug: Zofran (Ondansetron) 4 mg Route: PO; jh5 Outcome: 20:10 Discharge ordered by . nam 20:48 Discharged to home ambulatory. ld1 20:48 Condition: stable 20:48 Discharge instructions given to patient, family, Instructed on discharge instructions, follow up and referral plans. medication usage, Demonstrated understanding of instructions, follow-up care, medications, Prescriptions given X 1. 20:48 Patient left the ED. ld1 Signatures: Dispatcher [employer] EDMS Leslie Jules Josh, PA PA jr8 Charline Goldberg, RN RN ld1 Juli Torrez RN RN jh5
--- NOTE | 2021-07-11 20:11 | EDPHYS ---
Physician Documentation [facility] Name: Lise Loera Age: 60 yrs Sex: Female : 1960 Arrival Date: 07/11/2021 Time: 17:50 Bed 11 Private MD: ED Physician Mo Vanessa HPI: 07/11 20:01 This 60 yrs old Female presents to ER via Ambulatory with complaints of Arm Injury. jr8 20:01 This is a 60-year-old female patient that presented to the emergency room after jr8 sustaining a fall from her dog pulling her down. Patient stated that she landed on her right shoulder and felt a pop. Has had pain with decreased range of motion since the incident. Denies hitting head or neck or losing consciousness. Denies any other pain at this time.. Historical: - Allergies: 18:25 Codeine; ld1 18:25 Eliquis; ld1 18:25 PENICILLINS; ld1 18:25 Tylenol; ld1 - Home Meds: 18:25 amiodarone 100 mg Oral tab 1 tab 2 times per day [Active]; Aspirin EC Oral [Active]; ld1 Entresto 49-51 mg Oral tab [Active]; Lasix 20 mg Oral tab 60 mg in am, 40 mg in pm [Active]; potassium chloride 10 mEq Oral cpER 1 cap once daily [Active]; Xanax 2 mg Oral tab 1 tab 3 times per day [Active]; - PMHx: 18:25 ADD/ADHD; Anxiety; Atrial Fib; cancer - skin; Cancer, Breast; CHF; Hypertension; ld1 Myocardial infarction; Pacemaker; CAD; - Immunization history:: Adult Immunizations up to date. - Social history:: Smoking status: Patient denies any tobacco usage or history of. ROS: 20:01 Eyes: Negative for injury, pain, redness, and discharge, ENT: Negative for injury, jr8 pain, and discharge, Neck: Negative for injury, pain, and swelling, Cardiovascular: Negative for chest pain, palpitations, and edema, Respiratory: Negative for shortness of breath, cough, wheezing, and pleuritic chest pain, Abdomen/GI: Negative for abdominal pain, nausea, vomiting, diarrhea, and constipation, Back: Negative for injury and pain, Skin: Negative for injury, rash, and discoloration, Neuro: Negative for headache, weakness, numbness, tingling, and seizure. 20:01 MS/extremity: Positive for decreased range of motion, pain, tenderness, of the right arm. Exam: 20:01 Constitutional: This is a well developed, well nourished patient who is awake, alert, jr8 and in no acute distress. Head/Face: Normocephalic, atraumatic. Eyes: Pupils equal round and reactive to light, extra-ocular motions intact. Lids and lashes normal. Conjunctiva and sclera are non-icteric and not injected. Cornea within normal limits. Periorbital areas with no swelling, redness, or edema. ENT: Nares patent. No nasal discharge, no septal abnormalities noted. Tympanic membranes are normal and external auditory canals are clear. Oropharynx with no redness, swelling, or masses, exudates, or evidence of obstruction, uvula midline. Mucous membranes moist. Neck: Trachea midline, no thyromegaly or masses palpated, and no cervical lymphadenopathy. Supple, full range of motion without nuchal rigidity, or vertebral point tenderness. No Meningismus. Chest/axilla: Normal chest wall appearance and motion. Nontender with no deformity. No lesions are appreciated. Cardiovascular: Regular rate and rhythm with a normal S1 and S2. No gallops, murmurs, or rubs. Normal PMI, no JVD. No pulse deficits. Respiratory: Lungs have equal breath sounds bilaterally, clear to auscultation and percussion. No rales, rhonchi or wheezes noted. No increased work of breathing, no retractions or nasal flaring. Abdomen/GI: Soft, non-tender, with normal bowel sounds. No distension or tympany. No guarding or rebound. No evidence of tenderness throughout. Back: No spinal tenderness. No costovertebral tenderness. Full range of motion. Skin: Warm, dry with normal turgor. Normal color with no rashes, no lesions, and no evidence of cellulitis. Neuro: Awake and alert, GCS 15, oriented to person, place, time, and situation. Cranial nerves II-XII grossly intact. Motor strength 5/5 in all extremities. Sensory grossly intact. 20:01 Musculoskeletal/extremity: Extremities: grossly normal except: noted in the right arm: Patient has tenderness to the lateral and anterior right shoulder. No swelling, bruising, abrasion, laceration or other acute traumatic findings noted externally. Patient has decreased range of motion secondary to pain. Sensation is intact with 2+ pulses radially to affected extremity. Remainder of extremities unremarkable.. Vital Signs: 18:24 BP 101 / 69; Pulse 60; Resp 17; Temp 98.3(O); Pulse Ox 99% on R/A; Weight 61.23 kg; ld1 Height 5 ft. 3 in. (160.02 cm); Pain 9/10; 18:24 Body Mass Index 23.91 (61.23 kg, 160.02 cm) ld1 Procedures: 20:09 Splinting: Splint applied to right arm using sling, applied by nurse. Examined by me, nam post splint application: neurovascular intact, 2+ distal pulses palpable, brisk capillary refill noted, Patient tolerated well. MDM: 18:19 Patient medically screened. jr8 20:09 Data reviewed: vital signs, nurses notes, radiologic studies, plain films. Data jr8 interpreted: Pulse oximetry: on room air is 99 %. Interpretation: normal. Counseling: I had a detailed discussion with the patient and/or guardian regarding: the historical points, exam findings, and any diagnostic results supporting the discharge/admit diagnosis, radiology results, the need for outpatient follow up, a orthopedic surgeon, to return to the emergency department if symptoms worsen or persist or if there are any questions or concerns that arise at home. 07/11 18:45 Order name: XRAY Humerus RIGHT; Complete Time: 20:35 jr8 07/11 20:09 Order name: Sling; Complete Time: 20:34 jr8 Administered Medications: 19:33 Drug: morphine 4 mg Route: IM; Site: Ventrogluteal RIGHT; jh5 19:33 Drug: Zofran (Ondansetron) 4 mg Route: PO; jh5 Disposition: 07/12 12:38 Co-signature as Attending Physician, Mo Vanessa MD I agree with the assessment and kdr plan of care. Disposition Summary: 07/11/21 20:10 Discharge Ordered Location: Home jr8 Problem: new jr8 Symptoms: have improved jr8 Condition: Stable jr8 Diagnosis - Fracture of upper end of humerus jr8 Followup: jr8 - With: Husam Serrano MD - When: 2 - 3 days - Reason: Recheck today's complaints, Continuance of care, Re-evaluation by your physician Discharge Instructions: - Discharge Summary Sheet jr8 - Humerus Fracture Treated With Immobilization jr8 Forms: - Medication Reconciliation Form jr8 - Thank You Letter jr8 - Antibiotic Education jr8 - Prescription Opioid Use jr8 Prescriptions: - Tramadol 50 mg Oral Tablet - take 1 tablet by ORAL route every 8 hours as needed; 12 tablet; Refills: 0, jr8 Product Selection Permitted Signatures: Dispatcher [employer] EDMo Donovan MD MD kdr Roszak, Josh, PA PA jr8 Charline Goldberg, RN RN ld1 Juli Torrez RN RN jh5
--- NOTE | 2021-07-11 20:30 | RAD REPORT ---
EXAM DESCRIPTION: RAD - Humerus Right - 07/11/2021 8:05 pm CLINICAL HISTORY: Right arm pain status post fall FINDINGS: Comminuted moderately displaced fracture humeral head and neck
[2021-07-11 20:53] VITALS: BP 101/69; TEMP 98.3; O2SAT 99
== END 2021-07-11 20:48 | disposition home or self-care (01) ==
LOC: ER 17:48
PROC: 2W38X1Z Immobilization of Right Upper Extremity using Splint (ICD-10-PCS; principal; 2021-07-11)
DX: S42.201A Unspecified fracture of upper end of right humerus, initial encounter for closed fracture (principal); W18.30XA Fall on same level, unspecified, initial encounter; I10 Essential (primary) hypertension; Z95.0 Presence of cardiac pacemaker; Z88.0 Allergy status to penicillin; Z88.5 Allergy status to narcotic agent; Z88.6 Allergy status to analgesic agent; Z88.8 Allergy status to other drugs, medicaments and biological substances
CPT/HCPCS: 96372; 99283

== ENCOUNTER 2021-10-28 03:10 | Emergency (ER) | payer OTHER ==
--- OUTSIDE RECORDS SUMMARY | 2021-10-28 03:14 | XMS REPORT | Continuity of Care Document ---
:1960 Author Organization [facility] t Address [address] [place] [address] Care Team Providers Name Role Phone Mirza NAVARRO Primary Care Physician HANDY Attending Clinician Unavailable MIRZA Attending Clinician Unavailable JHON Attending Clinician Unavailable Jhon NAVARRO Attending Clinician Carmen PYLE Attending Clinician Unavailable Carmen Pyle DO Attending Clinician Doctor Unassigned, Name Attending Clinician Unavailable Mirza NAVARRO Attending Clinician VICTORIA Attending Clinician Unavailable YASIR Attending Clinician Unavailable MD YASIR Attending Clinician Unavailable Gillian EMKARIE, R Attending Clinician Provider, Urgent Care Attending Clinician Unavailable Lore BURKS, F Attending Clinician Hemalatha Ring RN Attending Clinician Unavailable MABLE Attending Clinician Unavailable MD MABLE H. Attending Clinician Unavailable Carmen PYLE Admitting Clinician Unavailable VICTORIA Admitting Clinician Unavailable YASIR Admitting Clinician Unavailable MD YASIR Admitting Clinician Unavailable MABLE Admitting Clinician Unavailable MD MABLE HMarco Admitting Clinician Unavailable Payers Payer Name Policy Type Policy Number Effective Date Expiration Date S ource MEDICARE PART A [id number] 2010 \\T\\ B 00:00:00 Problems Condition Condition Condition Status [...] ents Source Name Type Date Date Clinician PENICILL Drug Active High Unknown-Cmnt 2006-08 Un jennifer INS Class 0-08 ity of 00:00: [place] 00 Medical Branch CODEINE DRUG Active Med NAUSEA ONLY 2006-08 Univ ers INGREDI 0-08 ity of 00:00: [place] 00 Medical Branch Codeine Propensi Active Nausea Only 2006-08 Other Un jennifer ty to 0-08 reaction( ity of adverse 00:00: s): GI [place] reaction 00 Intoleran Medic al s ceVomitin Branch g Penicill Propensi Active Anaphylaxis 2006-08 Highly U nivers ins ty to 0-08 allergic ity of adverse 00:00: [place] reaction 00 Medical s Branch Social History Social Habit Start Date Stop Date Quantity Comments Source Exposure to Not sure [facility] SARS-CoV-2 (event) Medica l Branch Tobacco use and 2017-12-14 2017-12-14 Never used [facility] exposure 00:00:00 00:00:00 [facility] Sex Ass[birth year] [facility] 00:00:00 00:00:00 [facility] Smoking Status Start Date Stop Date Source Former smoker 2017-12-14 00:00:00 2017-12-14 00:00:00 [facility] Medications Ordered Filled Start Stop Current Ordering Indication Dosage Frequency Signature Comments Components Source Medication Medication Date Date Medication? Clinician (SIG) Name Name ondansetron 2021- No 4mg 4 mg, Slow Univers (ZOFRAN 3-06 03-06 IV Push, ity of (PF)) 21:00: 20:04 ONCE, 1 [place] injection 4 00 :00 dose, On Medi rosie mg [place] 10/23/21 Branch at 1500, LARISSA morpHINE 2021- No 4mg 4 mg, Slow Un jennifer injection 4 10-23 03-06 IV Push, ity of mg 21:00: 20:04 ONCE, 1 [place] 00 :00 dose, On [facility] 10/23/21 Branch at 1500, STAT polyethylen Yes [id number] 1{packe Take 1 Univers e glycol 3-06 t} Packet by ity of 3350 00:00: mouth [place] (MIRALAX) 00 every 24 Medica l 17 gram (twenty-fo Branch powder ur) hours as needed for Constipati on. ondansetron 2021- No 4mg 4 mg, Slow Univers (ZOFRAN 10-16 IV Push, ity of (PF)) 17:45: 16:46 ONCE, 1 [place] injection 4 00 :00 dose, On Medi rosie mg [facility] 10/16/21 at 1145, LARISSA morpHINE 2021- No 4mg 4 mg, Slow Un jennifer injection 4 10-16 IV Push, ity of mg 17:45: 16:48 ONCE, 1 [place] 00 :00 dose, On [facility] 10/16/21 at 1145, STAT dicyclomine 2021- Yes 20mg 20 mg, Uni vers (BENTYL) 10-16 Oral, ity of tablet 20 17:45: 17:45 ONCE, 1 [place] mg [place] :[place] dose, On [facility] 10/16/21 at 1145, Routine famotidine 2021- No 20mg 20 mg, Univ ers (PEPCID 10-16 Slow IV ity of (PF)) 16:15: 15:28 Push, [place] injection 00 :00 ONCE, 1 Medical 20 mg dose, On [facility] 10/16/21 at 1015, Routine iopamidol 2021- No [id number] 120mL 120 mL, Univers (ISOVUE 10-16 Intravenou ity o f 370-500 mL) 15:43: 15:42 s, ONCE, 1 [place] injection 00 :00 dose, On Medica l 120 mL [place] Branch 10/16/21 at 1000, Routine ciprofloxac 2021-0 Yes [id number] 250mg Take 1 Univers in HCl 250 2-27 tablet by ity of mg tablet 00:00: mouth 2 [place] (two) Medical times Branch daily. metroNIDAZO 2-0 Yes [id number] 500mg Take 1 Univers LE 500 mg 2-27 tablet by ity o f tablet 00:00: mouth 2 [place] (two) Medical times Branch daily. dicyclomine 2021-0 Yes [id number] 20mg Take 1 Univers 20 mg 2-27 tablet by ity of tablet 00:00: mouth [place] 00 every 6 Medical (six) Branch hours as needed for Abdominal pain. ciprofloxac 2021-0 Yes [id number] 250mg Take 1 Univers in HCl 250 2-27 tablet by ity of mg tablet 00:00: mouth 2 [place] (two) Medical times Branch daily. metroNIDAZO 2-0 Yes [id number] 500mg Take 1 Univers LE 500 mg 2-27 tablet by ity o f tablet 00:00: mouth 2 [place] (two) Medical times Branch daily. dicyclomine 2021-0 Yes [id number] 20mg Take 1 Univers 20 mg 2-27 tablet by ity of tablet 00:00: mouth [place] 00 every 6 Medical (six) Branch hours as needed for Abdominal pain. amiodarone 2021-0 Yes 200mg Take 200 Un jennifer 200 mg 2-22 mg by ity of tablet 10:30: mouth. [address] aspirin 325 2021-0 Yes 325mg Take 325 U nivers mg tablet 2-22 mg by ity of 10:30: mouth. [address] amiodarone 2021-0 Yes 200mg Take 200 Un jennifer 200 mg 2-22 mg by ity of tablet 10:30: mouth. [address] aspirin 325 2021-0 Yes 325mg Take 325 U nivers mg tablet 2-22 mg by ity of 10:30: mouth. [address] amiodarone 2021-0 Yes 200mg Take 200 Un jennifer 200 mg 2-22 mg by ity of tablet 10:30: mouth. [address] aspirin 325 2021-0 Yes 325mg Take 325 U nivers mg tablet 2-22 mg by ity of 10:30: mouth. [address] Branch spironolact 2021-0 Yes .5mg Take 0.5 Un jennifer one 25 mg 2-22 mg by ity of tablet 10:30: mouth. [place] 09 [facility] Branch spironolact 2021-0 Yes .5mg Take 0.5 Un jennifer one 25 mg 2-22 mg by ity of tablet 10:30: mouth. [place] 09 [facility] Branch spironolact 2021-0 Yes .5mg Take 0.5 Un jennifer one 25 mg 2-22 mg by ity of tablet 10:30: mouth. [address] Branch ALPRAZolam 2021-0 Yes [id number] TAKE 1 U nivers 2 mg tablet 2-22 TABLET BY ity of 00:00: MOUTH [place] 00 THREE Medical TIMES Branch DAILY NEEDED sulfamethox 2021-0 Yes [id number] 1{tbl} Take 1 Univers azole-trime 2-22 tablet by ity of thoprim 00:00: mouth 2 [place] (BACTRIM 00 (two) Medical DS) 800-160 times Branch mg per daily. tablet ALPRAZolam 2021-0 Yes [id number] TAKE 1 U nivers 2 mg tablet 2-22 TABLET BY ity of 00:00: MOUTH [place] 00 THREE Medical TIMES Branch DAILY NEEDED sulfamethox 2021-0 Yes [id number] 1{tbl} Take 1 Univers azole-trime 2-22 tablet by ity of thoprim 00:00: mouth 2 [place] (BACTRIM 00 (two) Medical DS) 800-160 times Branch mg per daily. tablet ALPRAZolam 2021-0 Yes [id number] TAKE 1 U nivers 2 mg tablet 2-22 TABLET BY ity of 00:00: MOUTH [place] 00 THREE Medical TIMES Branch DAILY NEEDED sulfamethox 2022-0 Yes [id number] 1{tbl} Take 1 Univers azole-trime 2-22 tablet by ity of thoprim 00:00: mouth 2 [place] (BACTRIM 00 (two) Medical DS) 800-160 times Branch mg per daily. tablet ALPRAZolam 2020-1 Yes [id number] TAKE 1 U nivers 2 mg tablet 2-15 TABLET BY ity of 00:00: MOUTH [place] 00 THREE Medical TIMES Branch DAILY NEEDED ALPRAZolam 2020-08 Yes [id number] TAKE 1 U nivers 2 mg tablet 2-15 TABLET BY ity of 00:00: MOUTH [place] 00 THREE Medical TIMES Branch DAILY NEEDED traMADoL 50 2020-08 Yes [id number] 50mg Take 1 Univ ers mg tablet 2-15 tablet by ity o f 00:00: mouth [place] 00 every 6 Medical (six) Branch hours as needed for Pain (scale 7-10). Indication s: acute pain ALPRAZolam 2020-08 Yes [id number] TAKE 1 U nivers 2 mg tablet 2-15 TABLET BY ity of 00:00: MOUTH [place] THREE Medical TIMES Branch DAILY NEEDED traMADoL 50 2020-08 Yes [id number] 50mg Take 1 Univ ers mg tablet 2-15 tablet by ity o f 00:00: mouth [place] 00 every 6 Medical (six) Branch hours as needed for Pain (scale 7-10). Indication s: acute pain ALPRAZolam 2020-08 Yes [id number] TAKE 1 U nivers 2 mg tablet 2-15 TABLET BY ity of 00:00: MOUTH [place] THREE Medical TIMES Branch DAILY NEEDED traMADoL 50 2020-08 Yes [id number] 50mg Take 1 Univ ers mg tablet 2-15 tablet by ity o f 00:00: mouth [place] 00 every 6 Medical (six) Branch hours as needed for Pain (scale 7-10). Indication s: acute pain ALPRAZolam 2020-08 Yes [id number] TAKE 1 U nivers 2 mg tablet 2-15 TABLET BY ity of 00:00: MOUTH [place] THREE Medical TIMES Branch DAILY NEEDED traMADoL 50 2020-08 Yes [id number] 50mg Take 1 Univ ers mg tablet 2-15 tablet by ity o f 00:00: mouth [place] 00 every 6 Medical (six) Branch hours as needed for Pain (scale 7-10). Indication s: acute pain ALPRAZolam 2020-08 Yes [id number] TAKE 1 U nivers 2 mg tablet 2-15 TABLET BY ity of 00:00: MOUTH [place] 00 THREE Medical TIMES Branch DAILY NEEDED traMADoL 50 2020-08 Yes [id number] 50mg Take 1 Univ ers mg tablet 2-15 tablet by ity o f 00:00: mouth [place] 00 every 6 Medical (six) Branch hours as needed for Pain (scale 7-10). Indication s: acute pain traMADoL 50 2020- Yes [id number] 50mg Take 1 Univ ers mg tablet 2-15 tablet by ity o f 00:00: mouth [place] 00 every 6 Medical (six) Branch hours as needed for Pain (scale 7-10). Indication s: acute pain traMADoL 50 2020-1 Yes [id number] 50mg Take 1 Univ ers mg tablet 2-15 tablet by ity o f 00:00: mouth [place] 00 every 6 Medical (six) Branch hours as needed for Pain (scale 7-10). Indication s: acute pain traMADoL 50 2020- Yes [id number] 50mg Take 1 Univ ers mg tablet 2-15 tablet by ity o f 00:00: mouth [...] 7-10). Indication s: acute pain traMADoL 50 2020-08- No [id number] 50mg Take 1 Uni vers mg tablet 1-09 12-15 tablet by ity of 00:00: 00:00 mouth [place] 00 :00 every 6 Medical (six) Branch hours as needed for Pain (scale 7-10). Indication s: acute pain ALPRAZolam 2020-0 2020- No [id number] TAKE 1 Univers 2 mg tablet 9-15 12-15 TABLET BY it y of 00:00: 00:00 MOUTH [place] 00 :00 THREE Medical TIMES Branch DAILY NEEDED traMADoL 50 2020-0 Yes acute pain 50mg Take 1 Univers mg tablet 4-10 tablet by ity o f 00:00: mouth [place] 00 every 6 Medical (six) Branch hours as needed for Pain (scale 7-10). Indication s: acute pain ALPRAZolam 2020-0 Yes Generalized TAKE 1 Univers 2 mg tablet 1-13 anxiety TABLET BY ity of 00:00: disorder MOUTH [place] 00 THREE Medical TIMES Branch DAILY NEEDED spironolact 2019-08 Yes .5mg Take 0.5 Un jennifer one 25 mg 0-29 mg by ity of tablet 19:32: mouth. [place] 48 Medical Branch spironolact 2020-1 Yes .5mg Take 0.5 Un jennifer one 25 mg 0-29 mg by ity of tablet 14:32: mouth. [address] spironolact 2019- Yes .5mg Take 0.5 Un jennifer one 25 mg 0-29 mg by ity of tablet 14:32: mouth. [address] spironolact 2019- Yes .5mg Take 0.5 Un jennifer one 25 mg 0-29 mg by ity of tablet 14:32: mouth. [address] spironolact 2019- Yes .5mg Take 0.5 Un jennifer one 25 mg 0-29 mg by ity of tablet 14:32: mouth. [address] spironolact 2019- Yes .5mg Take 0.5 Un jennifer one 25 mg 0-29 mg by ity of tablet 14:32: mouth. [address] spironolact 2019- Yes .5mg Take 0.5 Un jennifer one 25 mg 0-29 mg by ity of tablet 14:32: mouth. [address] DIGOXIN 2018- Yes Take by Univer s ORAL 7-10 mouth. ity of 19:00: [address] ENALAPRIL Yes Take by [facility] ers MALEATE 7-10 mouth. ity of ORAL 19:00: [address] sacubitril- Yes Take by Un jennifer valsartan 7-10 mouth 2 ity of (ENTRESTO) 19:00: (two) [place] 24-26 mg 17 times Medical Tab daily. Branch furosemide Yes 80mg Take 80 mg U nivers (LASIX) 80 7-10 by mouth ity o f mg tablet 19:00: daily. [address] furosemide 2018-0 Yes 80mg Take 80 mg U nivers (LASIX) 80 7-10 by mouth ity o f mg tablet 14:00: daily. [address] DIGOXIN 2018-0 Yes Take by Univer s ORAL 7-10 mouth. ity of 14:00: [address] ENALAPRIL Yes Take by [facility] ers MALEATE 7-10 mouth. ity of ORAL 14:00: [address] sacubitril- Yes Take by Un jennifer valsartan 7-10 mouth 2 ity of (ENTRESTO) 14:00: (two) [place] 24-26 mg 17 times Medical Tab daily. Branch furosemide 2019-0 Yes 80mg Take 80 mg U nivers (LASIX) 80 7-10 by mouth ity o f mg tablet 14:00: daily. [place] [address] Medical Branch DIGOXIN 2018-0 Yes Take by Univer s ORAL 7-10 mouth. ity of 14:00: [address] Branch ENALAPRIL 2018-0 Yes Take by Univ ers MALEATE 7-10 mouth. ity of ORAL 14:00: [address] Branch sacubitril- 0 Yes Take by Un jennifer valsartan 7-10 mouth 2 ity of (ENTRESTO) 14:00: (two) [place] 24-26 mg 17 times Medical Tab daily. Branch furosemide 0 Yes 80mg Take 80 mg U nivers (LASIX) 80 7-10 by mouth ity o f mg tablet 14:00: daily. [address] DIGOXIN 0 Yes Take by Univer s ORAL 7-10 mouth. ity of 14:00: [address] ENALAPRIL 2018-0 Yes Take by Univ ers MALEATE 7-10 mouth. ity of ORAL 14:00: [address] sacubitril- 0 Yes Take by Un jennifer valsartan 7-10 mouth 2 ity of (ENTRESTO) 14:00: (two) [place] 24-26 mg 17 times Medical Tab daily. Branch furosemide 2018-0 Yes 80mg Take 80 mg U nivers (LASIX) 80 7-10 by mouth ity o f mg tablet 14:00: daily. [address] DIGOXIN 2018-0 Yes Take by Univer s ORAL 7-10 mouth. ity of 14:00: [address] ENALAPRIL 2018-0 Yes Take by Univ ers MALEATE 7-10 mouth. ity of ORAL 14:00: [address] sacubitril- 2018-0 Yes Take by Un jennifer valsartan 7-10 mouth 2 ity of (ENTRESTO) 14:00: (two) [place] 24-26 mg 17 times Medical Tab daily. Branch furosemide 2019-0 Yes 80mg Take 80 mg U nivers (LASIX) 80 7-10 by mouth ity o f mg tablet 14:00: daily. [place] 17 Medical Branch DIGOXIN 2019-0 Yes Take by Univer s ORAL 7-10 mouth. ity of 14:00: [place] [address] Medical Branch ENALAPRIL 2019-0 Yes Take by Univ ers MALEATE 7-10 mouth. ity of ORAL 14:00: [place] [address] Medical Branch sacubitril- 2018-0 Yes Take by Un jennifer valsartan 7-10 mouth 2 ity of (ENTRESTO) 14:00: (two) [place] 24-26 mg 17 times Medical Tab daily. Branch furosemide 2019-0 Yes 80mg Take 80 mg U nivers (LASIX) 80 7-10 by mouth ity o f mg tablet 14:00: daily. [place] [address] Medical Branch DIGOXIN 2018-0 Yes Take by Univer s ORAL 7-10 mouth. ity of 14:00: [address] Branch ENALAPRIL 2018-0 Yes Take by Univ ers MALEATE 7-10 mouth. ity of ORAL 14:00: [address] Branch sacubitril- Yes Take by Un jennifer valsartan 7-10 mouth 2 ity of (ENTRESTO) 14:00: (two) [place] 24-26 mg 17 times Medical Tab daily. Branch furosemide 2019-0 Yes 80mg Take 80 mg U nivers (LASIX) 80 7-10 by mouth ity o f mg tablet 14:00: daily. [address] DIGOXIN 2018-0 Yes Take by Univer s ORAL 7-10 mouth. ity of 14:00: [address] Branch ENALAPRIL 2019-0 Yes Take by Univ ers MALEATE 7-10 mouth. ity of ORAL 14:00: [place] [address] Medical Branch sacubitril- 2018-0 Yes Take by Un jennifer valsartan 7-10 mouth 2 ity of (ENTRESTO) 14:00: (two) [place] 24-26 mg 17 times Medical Tab daily. Branch furosemide 2019-0 Yes 80mg Take 80 mg U nivers (LASIX) 80 7-10 by mouth ity o f mg tablet 14:00: daily. [place] [address] Medical Branch DIGOXIN 2019-0 Yes Take by Univer s ORAL 7-10 mouth. ity of 14:00: [place] [address] Medical Branch ENALAPRIL 2019-0 Yes Take by Univ ers MALEATE 7-10 mouth. ity of ORAL 14:00: [address] sacubitril- Yes Take by Un jennifer valsartan 7-10 mouth 2 ity of (ENTRESTO) 14:00: (two) [place] 24-26 mg 17 times Medical Tab daily. Branch furosemide Yes 80mg Take 80 mg U nivers (LASIX) 80 7-10 by mouth ity o f mg tablet 14:00: daily. [address] Branch [facility]OXIN [facility] mouth. ity of 14:00: [address] Branch ENALAPRIL Yes Take by [facility] ers MALEATE 7-10 mouth. ity of ORAL 14:00: [address] Branch sacubitril- Yes Take by Un jennifer valsartan 7-10 mouth 2 ity of (ENTRESTO) 14:00: (two) [place] 24-26 mg 17 times Medical Tab daily. Branch dicyclomine Yes Abdominal 20mg Take 1 Univers (BENTYL) 20 5-07 pain, tablet by it y of mg tablet 00:00: unspecified mouth 4 [place] 00 abdominal (four) Medical location times Branch daily. dicyclomine Yes [id number] 20mg Take 1 Univers (BENTYL) 20 5-07 tablet by ity of mg tablet 00:00: mouth 4 [place] [facility] Medical times Branch daily. dicyclomine Yes [id number] 20mg Take 1 Univers (BENTYL) 20 5-07 tablet by ity of mg tablet 00:00: mouth 4 [place] [facility] Medical times Branch daily. dicyclomine 2018- Yes [id number] 20mg Take 1 Univers (BENTYL) 20 5-07 tablet by ity of mg tablet 00:00: mouth 4 [place] 00 [facility] Medical times Branch daily. dicyclomine Yes [id number] 20mg Take 1 Univers (BENTYL) 20 5-07 tablet by ity of mg tablet 00:00: mouth 4 [place] 00 [facility] Medical times Branch daily. dicyclomine 2018- Yes [id number] 20mg Take 1 Univers (BENTYL) 20 5-07 tablet by ity of mg tablet 00:00: mouth 4 [place] 00 [facility] Medical times Branch daily. dicyclomine 2018- Yes [id number] 20mg Take 1 Univers (BENTYL) 20 5-07 tablet by ity of mg tablet 00:00: mouth 4 [place] 00 (four) Medical times [place] daily. dicyclomine Yes [id number] 20mg Take 1 Univers (BENTYL) 20 5-07 tablet by ity of mg tablet 00:00: mouth 4 [place] 00 (four) Medical times [place] daily. dicyclomine 2021- No [id number] 20mg Take 1 Univers (BENTYL) 20 5-07 -27 tablet by it y of mg tablet 00:00: 00:00 [place] 4 [place] :[place] (four) Medical times [place] daily. OMEGA 3 Yes None Univers ORAL 9-21 Entered ity of 20:48: [address] OMEGA 3 Yes None Univers ORAL 9-21 Entered ity of 15:48: [address] OMEGA 3 Yes None Univers ORAL 9-21 Entered ity of 15:48: [address] OMEGA 3 Yes None Univers ORAL 9-21 Entered ity of 15:48: [address] OMEGA 3 Yes None Univers ORAL 9-21 Entered ity of 15:48: [address] OMEGA 3 Yes None Univers ORAL 9-21 Entered ity of 15:48: [address] OMEGA 3 Yes None Univers ORAL 9-21 Entered ity of 15:48: [address] OMEGA 3 Yes None Univers ORAL 9-21 Entered ity of 15:48: [address] OMEGA 3 Yes None Univers ORAL 9-21 Entered ity of 15:48: [address] OMEGA 3 Yes None Univers ORAL 9-21 Entered ity of 15:48: [address] Vital Signs Vital Name Observation Time Observation Value Comments Source Systolic blood 2021-10-23 20:00:00 102 mm[Hg] Univer sity of pressure [facility] Diastolic blood 2021-10-23 20:00:00 69 mm[Hg] Unive rsity of pressure [facility] Heart rate 2021-10-23 20:00:00 76 /min Universi ty of [facility] Respiratory rate 2021-10-23 20:00:00 18 /min Univ ersity of [place] [facility] Oxygen saturation in 2021-10-23 20:00:00 94 /min University of Arterial blood by [facility] Pulse oximetry Branch Body temperature 2021-10-23 16:54:00 36.44 Freya Univ ersity of [place] [facility] [place] Body height 2021-10-23 16:54:00 157.5 cm Universi ty of [place] [facility] [place] Body weight 2021-10-23 16:54:00 55.339 kg Universi ty of [place] [facility] [place] BMI 2021-10-23 16:54:00 22.31 kg/m2 Universi ty of [place] [facility] Systolic blood 2021-10-16 16:44:33 108 mm[Hg] Univer sity of [facility] Diastolic blood 2021-10-16 16:44:33 66 mm[Hg] Unive rsity of [facility] Heart rate 2021-10-16 16:44:33 78 /min Universi ty of [facility] Respiratory rate 2021-10-16 16:44:33 16 /min Univ ersity of [facility] Oxygen saturation in 2021-10-16 16:44:33 96 /min University of Arterial blood by [facility] Pulse oximetry Branch Body temperature 2021-10-16 15:05:45 35.61 Freya Univ ersity of [facility] Body height 2021-10-16 14:50:00 157.5 cm Universi ty of [place] [facility] [place] Body weight 2021-10-16 14:50:00 55.339 kg Universi ty of [place] [facility] [place] BMI 2021-10-16 14:50:00 22.31 kg/m2 Universi ty of [place] [facility] [place] Diastolic blood 2021-08-03 18:46:00 52 mm[Hg] Unive rsity of [facility] [place] Body weight 2021-08-03 18:46:00 56.201 kg Universi ty of [place] [facility] BMI 2021-08-03 18:46:00 22.66 kg/m2 Universi ty of [place] [facility] Systolic blood 2021-08-03 18:46:00 98 mm[Hg] Univer sity of [facility] Procedures Procedure Date / Time Performing Clinician Source Performed CT ABDOMEN PELVIS WO 2021-10-23 19:22:14 Nikos Ferreira it of [facility] URINALYSIS 2021-10-23 17:30:00 Ferreira, Nikos [facility] PROTHROMBIN TIME / INR 2021-10-23 17:23:00 Nikos Ferreira [facility] ACTIVATED PARTIAL 2021-10-23 17:23:00 Nikos Ferreira [facility] THRMPLAS LUIS [facility] Branch COVID-19 (ID NOW RAPID 2021-10-23 17:23:00 Nikos Ferreira [facility] TESTING) Medical Branch HB ECG ROUTINE & RHYTHM 2021-10-23 17:21:17 Nikos Ferreira [facility] STRIP Medical Branch LIPASE 2021-10-23 17:17:00 Nikos Ferreira [facility] TROPONIN I 2021-10-23 17:17:00 Nikos Ferreira [facility] COMP. METABOLIC PANEL 2021-10-23 17:17:00 Nikos Ferreira [facility] ([id number]) Medical [place] CBC WITH DIFF 2021-10-23 17:17:00 Nikos Ferreira [facility] N-TERMINAL PRO-BNP 2021-10-23 17:17:00 Nikos Ferreira [facility] acute hospital CONSENT/REFUSAL FOR 2021-10-23 16:45:00 Doctor Unassigned, No [facility] [place] [facility] Name [facility] URINALYSIS 2021-10-16 16:26:00 Yuli Pyle [facility] CT ABDOMEN PELVIS W 2021-10-16 15:51:03 Yuli Pyle [facility] CONTRAST [facility] Branch LIPASE 2021-10-16 15:24:00 Yuli Pyle [facility] acute hospital TROPONIN I 2021-10-16 15:24:00 Yuli Pyle [facility] acute hospital COMP. METABOLIC PANEL 2021-10-16 15:24:00 Yuli Pyle [facility] ([id number]) Medical [place] CBC WITH DIFF 2021-10-16 15:24:00 Yuli Pyle [facility] acute hospital NOTICE OF PRIVACY 2021-10-16 14:46:21 [facility] Branch CONSENT/REFUSAL FOR 2021-10-16 14:45:38 [facility] Name Medical Branch XR WRIST 3+ VW RIGHT 2021-08-03 19:23:00 [facility] EXTERNAL PROVIDER 2020-12-23 05:01:00 Doctor Unassigned, No [facility] Name Medical Branch Plan of Care Planned Activity Planned Date Details Comments Source Future Scheduled 2021-06-17 Depression screening Uni versity of Test 00:00:00 (procedure) [code = [facility] dical [id number]] Branch Future Scheduled 2021-02-16 INFLUENZA VACCINE Postponed from Univ ersity of Test 00:00:00 (#1) [code = 04/20/2020 [facility] INFLUENZA VACCINE (Refused) Branch (#1)] Future Scheduled 2014 Screening for University of Test 00:00:00 malignant neoplasm [place] Med ical of lung (procedure) Branch [code = 354330929] Future Scheduled 2009 Screening for occult Uni versity of Test 00:00:00 blood in feces [facility] (procedure) [code = Branch [id number]] Future Scheduled 2009 Stool DNA-based Universi ty of Test 00:00:00 colorectal cancer [facility] screening Branch (procedure) [code = 311064521259430] Future Scheduled 2009 Flexible fiberoptic Univ ersity of Test 00:00:00 sigmoidoscopy [facility] (procedure) [code = Branch [id number]] Future Scheduled 2009 Screening for University of Test 00:00:00 malignant neoplasm [place] Med ical of colon (procedure) Branch [code = 024283564] Future Scheduled 2009 Screening for University of Test 00:00:00 malignant neoplasm [place] Med ical of colon (procedure) Branch [code = 601164761] Future Scheduled 2009 Zoster Recombinant Unive rsity of Test 00:00:00 Vaccine (SHINGRIX) [place] Med ical (1 of 2) [code = Branch Zoster Recombinant Vaccine (SHINGRIX) (1 of 2)] Future Scheduled 2009-06-07 Screening for University of Test 00:00:00 malignant neoplasm [place] Med ical of cervix Branch (procedure) [code = 352706238] Future Scheduled 2007-07-25 Screening for [facility] Test 00:00:00 malignant neoplasm [place] [facility] of breast Branch (procedure) [code = 619364958] Future Scheduled 1978 DTaP,Tdap,and Td Univers ity of Test 00:00:00 Vaccines (1 - Tdap) [facility] dicreginald [code = Branch DTaP,Tdap,and Td Vaccines (1 - Tdap)] Future Scheduled 1965 PNEUMOCOCCAL 0-64 Univer sity of Test 00:00:00 YEARS COMBINED [place] [facility] SERIES (1 of 3 - Branch PCV13) [code = PNEUMOCOCCAL 0-64 YEARS COMBINED SERIES (1 of 3 - PCV13)] Encounters Start End Encounter Admission Attending Care Care Encounter Source Date/Time Date/Time Type Type Clinicians Facility Department ID 2021-11-09 2021-11-09 Outpatient Reshma MURRELL [facility] [id number] -[id number] Univers 15:20:00 15:20:00 MONTSERRAT [id number] pawan o [facility] 2021-11-09 2021-11-09 Outpatient Reshma MURRELL [facility] [id number] Univers 15:20:00 15:20:00 MONTSERRAT villalta o [facility] 2021-11-02 2021-11-02 Outpatient Reshma BLUE [facility] [id number] -[id number] Univers 12:00:00 12:00:00 CASTRO [id number] pawan [facility] 2021-11-02 2021-11-02 Outpatient Reshma BLUE [facility] [id number] Univers 12:00:00 12:00:00 CASTRO villalta [facility] 2021-10-23 2021-10-23 Emergency Ann-Marie [facility] [id number] Univers 10:57:00 14:51:00 NIKOS villalta [facility] 2021-10-23 2021-10-23 Emergency [facility] [id number] Univers 10:57:00 14:51:[address] [facility] [id number] i [facility] 4.2.7.2.686 [facility] [phone] [facility] 084 Branch 2021-10-16 2021-10-16 Emergency Ann-Marie [facility] ERT [id number] Univers 08:57:00 11:17:00 YULI villalta [facility] 2021-10-16 2021-10-16 Emergency [facility] [id number] Univers 08:57:00 11:17:00 Yuli CASTILLO 350.1.13.10 [place] [phone] [facility] 084 [place] 2021-10-16 2021-10-16 Orders Doctor KNVG 1.2.840.114 [id number] Univers 00:00:00 00:00:00 Only Unassigned, ROLANDO 350.1.13.[address] [facility] 4.2.7.2.686 Mikey as [phone] [facility] 009 [place] 2021-10-11 2021-10-11 Outpatient Reshma BLUE [facility] [id number] Univers 10:15:00 10:43:38 CASTRO [facility] 2021-10-11 2021-10-11 Outpatient Reshma BLUE [facility] [id number] -[id number] Univers 10:15:00 10:15:00 CASTRO [id number] [facility] 2021-09-30 2021-09-30 Telephone [facility] [id number] Univers 00:00:00 00:00:00 [facility] [id number] it y [facility] 4.2.7.2.686 Mikey as MICHAEL?BLEA [phone] [address] OFFICE [facility] 2021-09-20 2021-09-20 Telephone [facility] [id number] Univers 00:00:00 00:00:00 [facility] 350.1.13.10 it y of [place] 4.2.7.2.686 Mikey as MICHAEL?BLEA [phone] [address] OFFICE [facility] 2021-08-04 2021-08-04 Telephone [facility] [id number] Univers 00:00:00 00:00:00 [facility] 350.1.13.10 it y of [place] 4.2.7.2.686 Mikey as MICHAEL?BLEA [phone] [address] OFFICE [facility] 2021-08-03 2021-08-03 Hospital [facility] 1.2.840.114 [id number] Univers 13:09:41 23:59:00 Encounter [facility] [id number] ity of [place] 4.2.7.2.686 Mikey as MICHAEL?BLEA [phone] Dc jaskaran SIMMONS 808 [facility] OFFICE [facility] 2021-08-03 2021-08-03 Outpatient R [facility] [id number] Univers 12:00:00 13:12:07 CASTRO ity [facility] 2021-08-03 2021-08-03 Office [facility] 1.2.840.114 [id number] [facility] 12:00:00 12:15:00 Visit [facility] [id number] it y [facility] 4.2.7.2.686 Mikey as MICHAEL?BLEA [phone] Dc jaskaran SIMMONS 044 [facility] OFFICE [facility] 2021-08-03 2021-08-03 Telephone [facility] [id number] [facility] 00:00:00 00:00:00 [facility] 350.1.13.10 it y of [place] 4.2.7.2.686 Mikey as MICHAEL?BLEA [phone] Dc jaskaran SIMMONS 044 [facility] OFFICE [facility] 2021-02-02 2021-02-02 Outpatient VICTORIA, [facility] [id number] [place] 00:00:00 00:00:00 NADIM 145 Method i 2021-01-27 2021-01-27 Outpatient VICTORIA, [facility] [id number] [place] 00:00:00 00:00:00 NADIM 151 Method i 2020-12-23 2020-12-23 Orders Doctor KVNG 1.2.840.114 [id number] 00:00:00 00:00:00 Only Unassigned, ROLANDO 350.1.13.10 [place] [facility] 4.2.7.2.686 [id number] [id number] 2020-12-04 2020-12-06 Inpatient [facility], [facility] 064 [id number] [place] 00:00:00 00:00:00 JENNIFER [address] 2020-12-05 2020-12-05 Telephone Mirza [facility] [id number] [id number] 00:00:00 00:00:00 [facility] 350.1.13.10 [place] 4.2.7.2.686 Professio [phone] [place] [address] [address] 2020-12-02 2020-12-02 Emergency French, [facility] [id number] 10:56:00 12:00:00 Lori Castillo 350.1.13.10 [place] 4.2.7.2.686 [place] [id number] [id number] 2020-12-02 2020-12-02 Urgent Provider, [facility] [id number] [id number] 07:50:30 09:40:15 Care [facility] 350.1.13.10 Care [place] 4.2.7.2.686 Professio [phone] [place] [address] [address] 2020-12-02 2020-12-02 Telephone Mirza [facility] [id number] 00:00:00 00:00:00 [facility] 350.1.13.10 [place] 4.2.7.2.686 Professio [phone] [place] [address] [address] 2020-11-30 2020-11-30 Telephone [facility] [id number] 00:00:00 00:00:00 [facility] 350.1.13.10 [place] 4.2.7.2.686 Professio [phone] [place] [address] [address] 2020-11-26 2020-11-27 Emergency Ibikunle, [facility] 1.2.840.114 [id number] 21:15:00 00:04:00 Ernestina Castillo 350.1.13.10 [place] 4.2.7.2.686 [place] [id number] [id number] 2020-11-27 2020-11-27 Nurse Hemalatha CALDERON 1.2.840.114 [id number] 00:00:00 00:00:00 Triage ROLANDO Ring 350.1.13.10 [facility] 4.2.7.2.686 [id number] [id number] 2020-09-22 2020-09-22 Telephone MOLLY Blue 1.2.392.786 [id number] 00:00:00 00:00:00 [facility] 350.1.13.10 [place] 4.2.7.2.686 Professio [phone] nal 044 [address] 2020-09-01 2020-09-01 Office Mirza [facility] 1.2.840.114 [id number] 12:28:02 12:43:[address] [facility] 350.1.13.10 [place] 4.2.7.2.686 Professio [phone] nal 044 [address] 2020-06-29 2020-07-04 Inpatient AKINS, [facility] [id number] [place] 00:00:00 00:00:[address] Results Test Description Test Time Test Comments Results Result Comments Source TROPONIN I 2021-10-23 18:14:02 Test Item Value Reference Range Interpretation Comme nts TROPONIN I (test code = 0.008 ng/mL See_Comment [Au tomated message] The 8850594013) system which ge nerated this result tra nsmitted reference range : <=0.034. The reference r sesar was not used to int erpret this result as normal/abnormal . FLY (test code = FLY) Reference (Normal) Range (defined by the 99th percentile reference limit): <= 0.034 ng/mL Note: Cardiac troponin begins to rise 3-4 hours after the onset of ischemia. Repeat in 4-6 hours if the sample was drawn within 3-4 hours of the onset of the symptom and found normal. Diagnosis of myocardial injury is made with acute changes in cTn concentrations with at least one serial sample above the 99th percentile upper reference limit (URL), taken together with the patient's clinical presentation. Biotin has been reported to cause a negative bias, interpret results relative to patient's use of biotin. Lab Interpretation Normal (test code = 99501-6) [facility] WITH [id number] 18:12:42 Test Item Value Reference Range Interpretation Comments WBC (test code = See_Comment [Automated 6690-2) message] The sy stem which generated this result transmitted reference range : 4.30 - 11.10 10*3/?L. The reference range was not used to interpret this result as normal/abnormal . RBC (test code = See_Comment [Automated 789-8) message] The sy stem which generated this result transmitted reference range : 3.93 - 5.25 10*6/?L. The reference range was not used to interpret this result as normal/abnormal . HGB (test code = 12.2 g/dL 11.6-15.0 718-7) HCT (test code = 37.4 % 35.7-45.2 4544-3) MCV (test code = 93.7 fL 80.6-95.5 787-2) MCH (test code = 30.6 pg 25.9-32.8 785-6) MCHC (test code = 32.6 g/dL 31.6-35.1 786-4) RDW-SD (test code = 59.7 fL 39.0-49.9 H 10603-5) RDW-CV (test code = 17.7 % 12.0-15.5 H 788-0) PLT (test code = See_Comment [Automated 777-3) message] The sy stem which generated this result transmitted reference range : 166 - 358 10*3/ ?L. The reference r sesar was not used to interpret this result as normal/abnormal . MPV (test code = 11.4 fL 9.5-12.9 92915-9) NRBC/100 WBC (test See_Comment [Automat ed code = 2499023728) message] The system which generated this result transmitted reference range : 0.0 - 10.0 /100 WBCs. The refer ence range was not u sed to interpret th is result as normal/abnormal . NRBC x10^3 (test code <0.01 See_Comment [Auto mated = 3903398214) message] The s ystem which generated this result transmitted reference range : 10*3/?L. The reference range was not used to interpret this result as normal/abnormal . GRAN MAT (NEUT) % 81.7 % (test code = 770-8) IMM GRAN % (test code 1.10 % = 3616864358) LYMPH % (test code = 7.7 % 736-9) MONO % (test code = 8.6 % 5905-5) EOS % (test code = 0.2 % 713-8) BASO % (test code = 0.7 % 706-2) GRAN MAT x10^3(ANC) 3.62 10*3/uL 1.88-7.09 (test code = 7956134269) IMM GRAN x10^3 (test 0.05 10*3/uL 0.00-0.06 code = 6030964281) LYMPH x10^3 (test code 0.34 10*3/uL 1.32-3.29 L = 731-0) MONO x10^3 (test code 0.38 10*3/uL 0.33-0.92 = 742-7) EOS x10^3 (test code = <0.03 0.03-0.39 L 711-2) BASO x10^3 (test code 0.03 10*3/uL 0.01-0.07 = 704-7) Lab Interpretation Abnormal (test code = 08508-2) [id number] 18:10:41 Test Item Value Reference Range Interpretation Comments NT-proBNP (test code 30815 pg/mL See_Comment H [Autom ated = 3473211807) message] The system which generated this result transmitted reference range : <=125. The reference range was not used to interpret this result as normal/abnormal . FLY (test code = FLY) Biotin has been reported to cause a negative bias, interpret results relative to patient's use of biotin. Lab Interpretation Abnormal (test code = 52385-5) [facility] METABOLIC PANEL ([id number])2021-10-23 18:02:23 Test Item Value Reference Range Interpretation Comments NA (test code = 132 mmol/L 135-145 L 1081676063) K (test code = 4.4 mmol/L 3.5-5.0 5919494436) CL (test code = 101 mmol/L 98-108 0841007416) CO2 TOTAL (test code = 17 mmol/L 23-31 L 2740581291) AGAP (test code = 2-16 6183643389) BUN (test code = 22 mg/dL 7-23 0537322647) GLUCOSE (test code = 112 mg/dL 70-110 H 5529731394) CREATININE (test code = 2.43 mg/dL 0.50-1.04 H 4111388484) TOTAL BILI (test code = 0.9 mg/dL 0.1-1.3 9578087270) CALCIUM (test code = 8.5 mg/dL 8.6-10.6 L 0267522110) T PROTEIN (test code = 7.1 g/dL 6.3-8.2 5283288325) ALBUMIN (test code = 4.1 g/dL 3.5-5.0 6040895757) ALK PHOS (test code = 211 U/L 34-122 H 5819491658) ALTv (test code = 91 U/L 5-35 H 1742-6) AST(SGOT) (test code = 67 U/L 13-40 H 7375678779) eGFR (test code = mL/min/1.73m2 4691961383) FLY (test code = FLY) Association of Glomerular Filtration Rate (GFR) and Staging of Kidney Disease* + --+ --+ ------+| GFR (mL/min/1.73 m2) ?| With Kidney Damage ?| ?Without Kidney Damage+ --------+ --------+ +| ?>90 ?| ?Stage one ?| ? Normal ?+ ---+ ---+ -------+| ?60-89 ?| ?Stage two ?| ? Decreased GFR ? + --+ --+ ------+| ?30-59 ?| ?Stage three ?| ? Stage three ? + --+ --+ ------+| ?15-29 ?| ?Stage four ? | ? Stage four ?+ ---+ ---+ -------+| ?<15 (or dialysis) ? ?| ?Stage five ? | ? Stage five ?+ ---+ ---+ -------+ *Each stage assumes the associated GFR level has been in effect for at least three months. ?Stages 1 to 5, with or without kidney disease, indicate chronic kidney disease. Notes: Determination of stages one and two (with eGFR >59mL/min/1.73 m2) requires estimation of kidney damage for at least three months as defined by structural or functional abnormalities of the kidney, manifested by either:Pathological abnormalities or Markers of kidney damage (including abnormalities in the composition of the blood or urine or abnormalities in imaging tests). Lab Interpretation Abnormal (test code = 43883-6) [facility] 18:02:18 Test Item Value Reference Range Interpretation Comments LIPASE (test code = 7135734551) 101 U/L 0-220 Lab Interpretation (test code = Normal 11587-7) [facility]IV[facility] PART[facility] THRMPLAS [id number] 17:59:21 Test Item Value Reference Range Interpretation Comments APTT Patient (test See_Comment [Automat ed code = 3173-2) message] The system which generated this result transmitted reference range : 23 - 38 Seconds . The reference range was not used to interpr et this result as normal/abnormal . FLY (test code = FLY) [facility] patient population mean normal value for aPTT is 30 seconds. Lab Interpretation Normal (test code = 48853-6) [facility]anoPROTHROMBIN TIME / [id number] 17:57:40 Test Item Value Reference Range Interpretation Comments PROTIME PATIENT (test See_Comment [Auto mated message] code = 5964-2) The system wh ich generated this result transmitted ref erence range: 12.0 - 1 4.7 Seconds. The re ference range was not u sed to interpret this result as normal/abnor mal. INR (test code = 6301-6) Nor mal INR <1.1; Warfarin Therap eutic range 2.0 to 3. 0 or 2.5 to 3.5, dep ending upon the indica tions. Lab Interpretation (test Normal code = 20961-3) [facility] [id number] 16:03:07 Test Item Value Reference Interpretation Comments Range TROPONIN I (test <0.012 See_Comment [Automated code = 2756293293) message] The system which generated this result transmitted reference range : <=0.034 ng/mL. The reference range was not used to interpret this result as normal/abnormal . FLY (test code = Reference (Normal) FLY) Range (defined by the 99th percentile reference limit): <= 0.034 ng/mL Note: Cardiac troponin begins to rise 3-4 hours after the onset of ischemia. Repeat in 4-6 hours if the sample was drawn within 3-4 hours of the onset of the symptom and found normal. Diagnosis of myocardial injury is made with acute changes in cTn concentrations with at least one serial sample above the 99th percentile upper reference limit (URL), taken together with the patient's clinical presentation. Biotin has been reported to cause a negative bias, interpret results relative to patient's use of biotin. Lab Interpretation Normal (test code = 14720-0) [facility]. METABOLIC PANEL ([id number])2021-10-16 15:52:01 Test Item Value Reference Range Interpretation Comments NA (test code = 135 mmol/L 135-145 6371862895) K (test code = 3.9 mmol/L 3.5-5.0 5301163148) CL (test code = 98 mmol/L 98-108 2672762159) CO2 TOTAL (test code = 22 mmol/L 23-31 L 4612981853) AGAP (test code = 2-16 1329695962) BUN (test code = 25 mg/dL 7-23 H 7299856516) GLUCOSE (test code = 117 mg/dL 70-110 H 7356034874) CREATININE (test code = 2.20 mg/dL 0.50-1.04 H 6568731983) TOTAL BILI (test code = 0.8 mg/dL 0.1-1.3 7341444758) CALCIUM (test code = 8.8 mg/dL 8.6-10.6 7577477231) T PROTEIN (test code = 7.4 g/dL 6.3-8.2 5901762979) ALBUMIN (test code = 4.2 g/dL 3.5-5.0 7613871518) ALK PHOS (test code = 174 U/L 34-122 H 0643647348) ALTv (test code = 25 U/L 5-35 1742-6) AST(SGOT) (test code = 45 U/L 13-40 H 0415774479) eGFR (test code = mL/min/1.73m2 2980319449) FLY (test code = FLY) Association of Glomerular Filtration Rate (GFR) and Staging of Kidney Disease* + --+ --+ ------+| GFR (mL/min/1.73 m2) ?| With Kidney Damage ?| ?Without Kidney Damage+ --------+ --------+ +| ?>90 ?| ?Stage one ?| ? Normal ?+ ---+ ---+ -------+| ?60-89 ?| ?Stage two ?| ? Decreased GFR ? + --+ --+ ------+| ?30-59 ?| ?Stage three ?| ? Stage three ? + --+ --+ ------+| ?15-29 ?| ?Stage four ? | ? Stage four ?+ ---+ ---+ -------+| ?<15 (or dialysis) ? ?| ?Stage five ? | ? Stage five ?+ ---+ ---+ -------+ *Each stage assumes the associated GFR level has been in effect for at least three months. ?Stages 1 to 5, with or without kidney disease, indicate chronic kidney disease. Notes: Determination of stages one and two (with eGFR >59mL/min/1.73 m2) requires estimation of kidney damage for at least three months as defined by structural or functional abnormalities of the kidney, manifested by either:Pathological abnormalities or Markers of kidney damage (including abnormalities in the composition of the blood or urine or abnormalities in imaging tests). Lab Interpretation Abnormal (test code = 33572-8) [facility]2022-[facility]-27 15:51:06 Test Item Value Reference Range Interpretation Comments LIPASE (test code = 6727696474) 68 U/L 0-220 Lab Interpretation (test code = Normal 80066-3) [facility] WITH [id number] 15:40:44 Test Item Value Reference Range Interpretation Comments WBC (test code = See_Comment [Automated 3712-2) message] The sy stem which generated this result transmitted reference range : 4.30 - 11.10 10*3/?L. The reference range was not used to interpret this result as normal/abnormal . RBC (test code = See_Comment L [Automated 622-0) message] The sy stem which generated this result transmitted reference range : 3.93 - 5.25 10*6/?L. The reference range was not used to interpret this result as normal/abnormal . HGB (test code = 10.6 g/dL 11.6-15.0 L 718-7) HCT (test code = 33.9 % 35.7-45.2 L 4544-3) MCV (test code = 95.8 fL 80.6-95.5 H 787-2) MCH (test code = 29.9 pg 25.9-32.8 785-6) MCHC (test code = 31.3 g/dL 31.6-35.1 L 786-4) RDW-SD (test code = 58.0 fL 39.0-49.9 H 00323-5) RDW-CV (test code = 16.9 % 12.0-15.5 H 788-0) PLT (test code = See_Comment [Automated 777-3) message] The sy stem which generated this result transmitted reference range : 166 - 358 10*3/ ?L. The reference r sesar was not used to interpret this result as normal/abnormal . MPV (test code = 10.8 fL 9.5-12.9 94129-0) NRBC/100 WBC (test See_Comment [Automat ed code = 5567291152) message] The system which generated this result transmitted reference range : 0.0 - 10.0 /100 WBCs. The refer ence range was not u sed to interpret th is result as normal/abnormal . NRBC x10^3 (test code <0.01 See_Comment [Auto mated = 0343492692) message] The s ystem which generated this result transmitted reference range : 10*3/?L. The reference range was not used to interpret this result as normal/abnormal . GRAN MAT (NEUT) % 70.6 % (test code = 770-8) IMM GRAN % (test code 0.50 % = 3733761497) LYMPH % (test code = 14.3 % 736-9) MONO % (test code = 13.2 % 5905-5) EOS % (test code = 0.5 % 713-8) BASO % (test code = 0.9 % 706-2) GRAN MAT x10^3(ANC) 3.06 10*3/uL 1.88-7.09 (test code = 2356786431) IMM GRAN x10^3 (test <0.03 0.00-0.06 code = 1810904927) LYMPH x10^3 (test code 0.62 10*3/uL 1.32-3.29 L = 731-0) MONO x10^3 (test code 0.57 10*3/uL 0.33-0.92 = 742-7) EOS x10^3 (test code = <0.03 0.03-0.39 L 711-2) BASO x10^3 (test code 0.04 10*3/uL 0.01-0.07 = 704-7) Lab Interpretation Abnormal (test code = 22527-7) [facility] [Presence] in Respiratory specimen by TALIA with probe [id number] 09:35:29 Test Item Value Reference Range Interpretation Comments SARS-CoV-2 (COVID-19) RNA Not detected Not-Detected [Presence] in Respiratory specimen by TALIA with probe detection (test code = 22913-2) SARS-CoV-2 (COVID-19) RNA [Presence] in Respiratory specimen by TALIA with probe [id number] 23:17:05 Test Item Value Reference Range Interpretation Comments SARS-CoV-2 (COVID-19) RNA Not detected Not-Detected [Presence] in Respiratory specimen by TALIA with probe detection (test code = 32122-1)"
[2021-10-28 05:25] LABS: Absolute Lymphocytes (CBC) 0.5 K/uL (0.7-4.9); Hematocrit 42.5 % (36.0-45.0); Lymphocytes % 10.2 % (15.3-44.8); MPV 9.2 fL (7.6-11.3); RBC Red Blood Cell Count 4.47 M/uL (3.86-4.86)
[2021-10-28 05:47] LABS: Albumin 3.6 g/dL (3.4-5.0); Bilirubin Direct 0.3 mg/dL (0-0.2); Bilirubin Total 0.8 mg/dL (0.2-1.0); Potassium 4.2 mmol/L (3.5-5.1)
[2021-10-28 06:12] LABS: Urine Blood 1+ (Negative); Urine Glucose Negative (Negative); Urine Protein Negative (Negative)
[2021-10-28 06:17] LABS: Blood Morphology Comment NOT SEEN (NOT SEEN); Platelet Estimate ADEQ; Platelets, Giant NOTED; White Blood Cell Scan OK (OK)
[2021-10-28] MEDS ORDERED: ONDANSETRON 4 MG (ODT) TAB ONE (07:45)
[2021-10-28] MEDS ORDERED: MEPERIDINE HCL 25 MG/ML SYR ONE (07:45)
--- NOTE | 2021-10-28 08:29 | RAD REPORT ---
EXAM DESCRIPTION: CTAbdomen Pelvis Wo Contrast - 10/28/2021 8:15 am CLINICAL HISTORY: ABD PAIN COMPARISON: Abdomen Pelvis Wo Contrast dated 12/22/2018; CT ABDOMEN PELVIS WO CONTRAST dated 03/30/20 13; CT ABDOMEN PELVIS WO CONTRAST dated 07/21/2011; CT ABD PELVIS W CONTRAST dated 05/08/2008 TECHNIQUE: CT of the abdomen and pelvis was performed without contrast. Oral contrast was given. All CT scans are performed using dose optimization technique as appropriate and may include automated exposure control or mA/KV adjustment according to patient size. FINDINGS: Lower chest: Pacemaker. Moderate severe cardiomegaly. Pulmonary edema in the lung bases. B ilateral breast implants. Small bilateral effusions . Liver: No acute abnormality or suspicious lesions. Biliary: Cholecystectomy Stomach: No significant focal abnormality. Duodenum: No significant focal abnormality. Pancreas: No significant abnormality. Spleen: No significant abnormality. Adrenal: No suspicious lesions. Kidney/ureter: No hydronephrosis. No renal calculi. Retroperitoneum: No retroperitoneal adenopathy. Vascular: No aneurysm. Atherosclerosis. Bowel: Normal appendix. No bowel obstruction.. Peritoneum: Small volume of ascites. Bladder: Grossly unremarkable. Reproductive: No adnexal masses. Bones: No acute fracture. Other: n/a IMPRESSION: Small volume of nonspecific abdominopelvic free fluid may be secondary to congestive hea rt failure. No acute findings within the abdomen or pelvis identified. Normal appendix. Pulmonary edema partially imaged in the lung bases.
--- NOTE | 2021-10-28 08:38 | EDPHYS ---
Physician Documentation [facility] Name: Lise Loera Age: 61 yrs Sex: Female : 1960 Arrival Date: 10/28/2021 Time: 03:10 Bed 14 Private MD: ED Physician Jaret Donahue HPI: 10/28 04:51 This 61 yrs old Female presents to ER via Ambulatory with complaints of Abdominal Pain. mh7 04:51 The patient presents with abdominal pain that is diffuse. Onset: The symptoms/episode mh7 began/occurred 5 day(s) ago. The symptoms do not radiate. 04:52 Associated signs and symptoms: Pertinent positives: constipation, Pertinent negatives: mh7 nausea, vomiting, and diarrhea, anorexia, blood in stools, chest pain, diarrhea, dysuria, fever, headache, hematuria, nausea, palpitations, shortness of breath, vaginal discharge, vomiting, vomiting blood. The symptoms are described as intermittent, vague, waxing/waning. Modifying factors: The symptoms are alleviated by nothing, the symptoms are aggravated by nothing. Severity of pain: At its worst the pain was moderate 5 day(s) ago, in the emergency department the pain has improved moderately. 04:52 The patient has been recently seen by a physician: Outside facility. mh7 Historical: - Allergies: 03:26 Codeine; tw5 03:26 Eliquis; tw5 03:26 PENICILLINS; tw5 03:26 Tylenol; tw5 - Home Meds: 03:26 potassium chloride 10 mEq Oral cpER 1 cap once daily [Active]; amiodarone 100 mg Oral tw5 tab 1 tab 2 times per day [Active]; Aspirin EC Oral [Active]; Entresto 49-51 mg Oral tab [Active]; Lasix 20 mg Oral tab 60 mg in am, 40 mg in pm [Active]; Xanax 2 mg Oral tab 1 tab 3 times per day [Active]; - PMHx: 03:26 Anxiety; ADD/ADHD; Atrial Fib; CAD; cancer - skin; Cancer, Breast; CHF; Hypertension; tw5 Myocardial infarction; Pacemaker; - Immunization history:: Flu vaccine is not up to date. Patient has never been vaccinated. - Social history:: Smoking status: Patient denies any tobacco usage or history of. ROS: 04:52 Constitutional: Negative for fever, chills, and weight loss, Eyes: Negative for injury, mh7 pain, redness, and discharge, ENT: Negative for injury, pain, and discharge, Neck: Negative for injury, pain, and swelling, Cardiovascular: Negative for chest pain, palpitations, and edema, Respiratory: Negative for shortness of breath, cough, wheezing, and pleuritic chest pain, Back: Negative for injury and pain, : Negative for injury, bleeding, discharge, and swelling, MS/Extremity: Negative for injury and deformity, Skin: Negative for injury, rash, and discoloration, Neuro: Negative for headache, weakness, numbness, tingling, and seizure, Psych: Negative for depression, anxiety, suicide ideation, homicidal ideation, and hallucinations, Allergy/Immunology: Negative for hives, rash, and allergies, Endocrine: Negative for neck swelling, polydipsia, polyuria, polyphagia, and marked weight changes, Hematologic/Lymphatic: Negative for swollen nodes, abnormal bleeding, and unusual bruising. Exam: 04:52 Constitutional: This is a well developed, well nourished patient who is awake, alert, mh7 and in no acute distress. Head/Face: Normocephalic, atraumatic. Eyes: Pupils equal round and reactive to light, extra-ocular motions intact. Lids and lashes normal. Conjunctiva and sclera are non-icteric and not injected. Cornea within normal limits. Periorbital areas with no swelling, redness, or edema. Neck: Trachea midline, no thyromegaly or masses palpated, and no cervical lymphadenopathy. Supple, full range of motion without nuchal rigidity, or vertebral point tenderness. No Meningismus. Chest/axilla: Normal chest wall appearance and motion. Nontender with no deformity. No lesions are appreciated. Cardiovascular: Regular rate and rhythm with a normal S1 and S2. No gallops, murmurs, or rubs. Normal PMI, no JVD. No pulse deficits. Respiratory: Lungs have equal breath sounds bilaterally, clear to auscultation and percussion. No rales, rhonchi or wheezes noted. No increased work of breathing, no retractions or nasal flaring. Back: No spinal tenderness. No costovertebral tenderness. Full range of motion. Skin: Warm, dry with normal turgor. Normal color with no rashes, no lesions, and no evidence of cellulitis. MS/ Extremity: Pulses equal, no cyanosis. Neurovascular intact. Full, normal range of motion. Neuro: Awake and alert, GCS 15, oriented to person, place, time, and situation. Cranial nerves II-XII grossly intact. Motor strength 5/5 in all extremities. Sensory grossly intact. Cerebellar exam normal. Normal gait. Psych: Awake, alert, with orientation to person, place and time. Behavior, mood, and affect are within normal limits. 04:52 Abdomen/GI: Inspection: distension, that is mild, Bowel sounds: normal, in all mh7 quadrants, Palpation: mild abdominal tenderness, in the abdomen diffusely, mass, is not appreciated, rebound tenderness, is not appreciated, voluntary guarding, is not appreciated, involuntary guarding, is not appreciated, no appreciated organomegaly, Rectal exam: the exam is deferred, because of patient request, Indicators: McBurney's point is tender, Deal's sign is positive, Rovsing's sign is positive, Obturator sign is positive, Psoas sign is positive, Liver: no appreciated palpable abnormalities, Hernia: not appreciated. Vital Signs: 03:22 BP 114 / 87; Pulse 92; Resp 18; Temp 98.5; Pulse Ox 100% on R/A; Weight 55.34 kg; tw5 Height 5 ft. 2 in. (157.48 cm); Pain 10/10; 04:53 BP 102 / 70; Pulse 77; Resp 17; Pulse Ox 98% on R/A; lg3 05:50 BP 95 / 59; Pulse 69; Resp 16; Pulse Ox 91% on R/A; lg3 07:54 BP 103 / 68; Pulse 81; Resp 20; Temp 97.7; Pulse Ox 95% on R/A; ll1 08:46 BP 108 / 68; Pulse 79; Resp 16; ll1 03:22 Body Mass Index 22.31 (55.34 kg, 157.48 cm) tw5 MDM: 06:52 Patient medically screened. jr8 08:37 Data reviewed: vital signs, nurses notes, lab test result(s), EKG, radiologic studies, jr8 CT scan. Data interpreted: Pulse oximetry: on room air is 95 %. Interpretation: normal. Counseling: I had a detailed discussion with the patient and/or guardian regarding: the historical points, exam findings, and any diagnostic results supporting the discharge/admit diagnosis, lab results, radiology results, the need for outpatient follow up, a family practitioner, to return to the emergency department if symptoms worsen or persist or if there are any questions or concerns that arise at home. Response to treatment: the patient's symptoms have mildly improved after treatment. Special discussion: Based on the patient's Hx, exam, and Dx evaluation, there is no indication for emergent surgery or inpatient Tx. It is understood by the patient/guardian that if the Sx's persist or worsen they need to return immediately for re-evaluation. 10/28 03:54 Order name: Basic Metabolic Panel; Complete Time: 06:07 7 10/28 03:54 Order name: CBC with Diff; Complete Time: 06:38 7 10/28 03:54 Order name: Hepatic Function; Complete Time: 06:07 7 10/28 03:54 Order name: Lipase; Complete Time: 06:07 7 10/28 05:26 Order name: CBC Smear Scan; Complete Time: 06:38 EDMS 10/28 06:11 Order name: Urine Dipstick-Ancillary; Complete Time: 06:38 EDMS 10/28 03:54 Order name: EKG; Complete Time: 03:55 7 10/28 07:48 Order name: Abdomen ; Complete Time: 08:34 EDMS 10/28 03:54 Order name: Labs collected and sent; Complete Time: 05:06 7 10/28 03:54 Order name: Urine Dipstick-Ancillary (obtain specimen); Complete Time: 06:13 7 10/28 03:54 Order name: EKG - Nurse/Tech; Complete Time: 04:50 mh7 Administered Medications: 07:41 Drug: Demerol (meperidine) 25 mg Route: IM; Site: left ventrogluteal; ll1 08:47 Follow up: Response: No adverse reaction ll1 07:50 Drug: Zofran (Ondansetron) 4 mg Route: PO; ll1 08:47 Follow up: Response: No adverse reaction ll1 Disposition Summary: 10/28/21 08:38 Discharge Ordered Location: Home jr8 Problem: new jr8 Symptoms: have improved jr8 Condition: Stable jr8 Diagnosis - Upper abdominal pain, unspecified jr8 Followup: jr8 - With: Private Physician - When: 2 - 3 days - Reason: Recheck today's complaints, Continuance of care, Re-evaluation by your physician Discharge Instructions: - Discharge Summary Sheet jr8 - Abdominal Pain, Adult jr8 Forms: - Medication Reconciliation Form jr8 - Thank You Letter jr8 - Antibiotic Education jr8 - Prescription Opioid Use jr8 Addendum: 10/30/2021 19:10 Co-signature as Attending Physician, Jaret Donahue MD. [facility] Signatures: Dispatcher [employer] EDMS Enrrique Johnson PA PA jr8 Tushar Luis RN RN ll1 Jaret Donahue MD MD 7 Viry Preciado 5 Corrections: (The following items were deleted from the chart) 10/28 06:49 06:09 Abdomen Pelvis W Con+CT.RAD.BRZ ordered. EDMS EDMS 07:47 06:49 Abdomen ordered. EDMS EDMS 07:48 07:40 Abdomen Pelvis W Con+CT.RAD.BRZ ordered. EDMS EDMS
--- NOTE | 2021-10-28 08:38 | ER ---
Nurse's Notes [facility] Name: Lise Loera Age: 61 yrs Sex: Female : 1960 Arrival Date: 10/28/2021 Time: 03:10 Bed 14 Private MD: Diagnosis: Upper abdominal pain, unspecified Presentation: 10/28 03:22 Chief complaint: Patient states: "I was seen in [place] on Sunday, for abdominal pain. tw5 However tonight after I had a little bit of soup and some chips with guacamole my stomach started hurting again. I feel like I have a rope wrapped around my chest! I haven't gone to the bathroom in like 9 weeks. I have taken everything for constipation, but nothing helps. The only thing that has come out is gas.". Coronavirus screen: Vaccine status: Patient reports being unvaccinated. Ebola Screen: Patient negative for fever greater than or equal to 101.5 degrees Fahrenheit, and additional compatible Ebola Virus Disease symptoms Patient denies exposure to infectious person. Patient denies travel to an Ebola-affected area in the 21 days before illness onset. Initial Sepsis Screen: Does the patient meet any 2 criteria? No. Patient's initial sepsis screen is negative. Does the patient have a suspected source of infection? Yes: Acute abdominal pain. Risk Assessment: Do you want to hurt yourself or someone else? Patient reports no desire to harm self or others. Onset of symptoms is unknown. 03:22 Method Of Arrival: Ambulatory tw5 03:22 Acuity: ESTRELLITA 3 tw5 Triage Assessment: 03:26 General: Appears uncomfortable, Behavior is anxious. Pain: Complains of pain in abdomen tw5 Pain currently is 10 out of 10 on a pain scale. GI: Reports constipation. Historical: - Allergies: 03:26 Codeine; tw5 03:26 Eliquis; tw5 03:26 PENICILLINS; tw5 03:26 Tylenol; tw5 - Home Meds: 03:26 potassium chloride 10 mEq Oral cpER 1 cap once daily [Active]; amiodarone 100 mg Oral tw5 tab 1 tab 2 times per day [Active]; Aspirin EC Oral [Active]; Entresto 49-51 mg Oral tab [Active]; Lasix 20 mg Oral tab 60 mg in am, 40 mg in pm [Active]; Xanax 2 mg Oral tab 1 tab 3 times per day [Active]; - PMHx: 03:26 Anxiety; ADD/ADHD; Atrial Fib; CAD; cancer - skin; Cancer, Breast; CHF; Hypertension; tw5 Myocardial infarction; Pacemaker; - Immunization history:: Flu vaccine is not up to date. Patient has never been vaccinated. - Social history:: Smoking status: Patient denies any tobacco usage or history of. Screenin:27 Abuse screen: Denies threats or abuse. Denies injuries from another. tw5 04:50 Nutritional screening: No deficits noted. Tuberculosis screening: No symptoms or risk lg3 factors identified. Fall Risk None identified. Assessment: 04:50 General: Appears in no apparent distress. uncomfortable, Behavior is cooperative, lg3 anxious. Pain: Complains of pain in epigastric area Pain currently is 10 out of 10 on a pain scale. Neuro: No deficits noted. Level of Consciousness is awake, alert, obeys commands, Oriented to person, place, time, situation. Cardiovascular: No deficits noted. Reports pacemaker/defib placement X3. Respiratory: No deficits noted. Airway is patent Trachea midline Respiratory effort is even, unlabored, Respiratory pattern is regular, symmetrical. GI: Abdomen is round distended, Bowel sounds present X 4 quads. Abd is soft X 4 quads Abdomen is tender to palpation in right upper quadrant and left upper quadrant. : No deficits noted. No signs and/or symptoms were reported regarding the genitourinary system. EENT: No deficits noted. No signs and/or symptoms were reported regarding the EENT system. Derm: No deficits noted. No signs and/or symptoms reported regarding the dermatologic system. Skin is intact, is healthy with good turgor, Skin is dry. Musculoskeletal: No deficits noted. No signs and/or symptoms reported regarding the musculoskeletal system. Circulation, motion, and sensation intact. Range of motion: intact in all extremities. 06:02 Reassessment: Patient appears in no apparent distress at this time. No changes from lg3 previously documented assessment. Patient and/or family updated on plan of care and expected duration. Pain level reassessed. Patient is alert, oriented x 3, equal unlabored respirations, skin warm/dry/pink. 07:00 Reassessment: No changes from previously documented assessment. Patient and/or family ll1 updated on plan of care and expected duration. Pain level reassessed. Patient is alert, oriented x 3, equal unlabored respirations, skin warm/dry/pink. 08:00 Reassessment: No changes from previously documented assessment. Patient and/or family ll1 updated on plan of care and expected duration. Pain level reassessed. Patient is alert, oriented x 3, equal unlabored respirations, skin warm/dry/pink. 08:47 Reassessment: No changes from previously documented assessment. Patient and/or family ll1 updated on plan of care and expected duration. Pain level reassessed. Patient is alert, oriented x 3, equal unlabored respirations, skin warm/dry/pink. Vital Signs: 03:22 BP 114 / 87; Pulse 92; Resp 18; Temp 98.5; Pulse Ox 100% on R/A; Weight 55.34 kg; tw5 Height 5 ft. 2 in. (157.48 cm); Pain 10/10; 04:53 BP 102 / 70; Pulse 77; Resp 17; Pulse Ox 98% on R/A; lg3 05:50 BP 95 / 59; Pulse 69; Resp 16; Pulse Ox 91% on R/A; lg3 07:54 BP 103 / 68; Pulse 81; Resp 20; Temp 97.7; Pulse Ox 95% on R/A; ll1 08:46 BP 108 / 68; Pulse 79; Resp 16; ll1 03:22 Body Mass Index 22.31 (55.34 kg, 157.48 cm) tw5 ED Course: 03:10 Patient arrived in ED. ag3 03:25 Triage completed. tw5 03:26 Arm band placed on right wrist. tw5 03:28 Katelin Garay, RN is Primary Nurse. lg3 03:33 Jaret Donahue MD is Attending Physician. mh7 04:50 Patient has correct armband on for positive identification. Bed in low position. Call lg3 light in reach. Side rails up X 1. Pulse ox on. NIBP on. Door closed. Noise minimized. Warm blanket given. 05:11 Basic Metabolic Panel Sent. lg3 05:11 CBC with Diff Sent. lg3 05:11 Hepatic Function Sent. lg3 05:12 Lipase Sent. lg3 06:37 Primary Nurse role handed off by Katelin Garay, RN cs9 06:52 [facility] jr8 06:57 Katelin Garay RN is Primary Nurse. lg3 08:15 Abdomen In Process Unspecified. EDMS 08:48 No provider procedures requiring assistance completed. Patient did not have IV access ll1 during this emergency room visit. Administered Medications: 07:41 Drug: Demerol (meperidine) 25 mg Route: IM; Site: left ventrogluteal; ll1 08:47 Follow up: Response: No adverse reaction ll1 07:50 Drug: Zofran (Ondansetron) 4 mg Route: PO; ll1 08:47 Follow up: Response: No adverse reaction ll1 Outcome: 08:38 Discharge ordered by . jr8 08:48 Discharged to home ambulatory. ll1 08:48 Condition: stable 08:48 Discharge instructions given to patient, Instructed on discharge instructions, follow up and referral plans. Demonstrated understanding of instructions, follow-up care. 08:48 Patient left the ED. ll1 Signatures: Dispatcher [employer] EDNJ Enrrique Johnson PA PA jr8 Maylin Soares ag3 Katelin Garay RN RN lg3 Tushar Luis RN RN ll1 Jaret Donahue MD MD 7 Viry Preciado [facility] Tracie Montoya cs9 Corrections: (The following items were deleted from the chart) 05:40 04:50 Inserted saline lock: 24 gauge in left wrist, using aseptic technique. Blood lg3 collected. lg3 07:56 07:54 BP 103 / 68; Pulse 81bpm; Resp 16bpm; Pulse Ox 95% RA; Temp 97.7F; ll1 ll1
[2021-10-28 09:07] VITALS: TEMP 97.7; O2SAT 95
[2021-10-28 09:09] VITALS: BP 108/68
--- NOTE | 2021-10-28 13:08 | EKG ---
Test Date: 2021-10-28 Test Time: 04:40:16 Manager Analysis: MEASUREMENT RESULTS: Intervals: Rate: 77 PA: 138 QRSD: 194 QT: 480 QTc: 543 [place]: P: 36 PA: 138 QRS: -54 T: 8 INTERPRETIVE STATEMENTS: Atrial-sensed ventricular-paced rhythm Abnormal ECG Compared to ECG 10/28/2021 04:39:47 No significant changes Electronically Signed On 10-28-21 13:07:53 BRIM SHAPER by Juma Dickey
--- NOTE | 2021-10-28 13:08 | EKG ---
Test Date: 2021-10-28 Test Time: 04:39:47 Lecturer In Computer Science: MEASUREMENT RESULTS: Intervals: Rate: 78 MA: 124 QRSD: 182 QT: 498 QTc: 567 [place]: P: 41 MA: 124 QRS: 127 T: 11 INTERPRETIVE STATEMENTS: Atrial-sensed ventricular-paced rhythm Abnormal ECG Compared to ECG 06/28/2021 13:24:09 No significant changes Electronically Signed On 10-28-21 13:07:54 MOLDER SWEEP by Juma Dickey
== END 2021-10-28 08:48 | disposition home or self-care (01) ==
LOC: ER 03:10
DX: R10.10 Upper abdominal pain, unspecified (principal); I10 Essential (primary) hypertension; I50.9 Heart failure, unspecified; I25.2 Old myocardial infarction; F41.9 Anxiety disorder, unspecified; Z95.0 Presence of cardiac pacemaker; Z79.82 Long term (current) use of aspirin; Z88.0 Allergy status to penicillin; Z88.5 Allergy status to narcotic agent; Z88.6 Allergy status to analgesic agent; Z88.8 Allergy status to other drugs, medicaments and biological substances; Z85.3 Personal history of malignant neoplasm of breast; Z85.828 Personal history of other malignant neoplasm of skin
CPT/HCPCS: 93005 ×2; 85025; 80048; 36415; 80076; 81003; 83690; 74176; 96372; 99284; J2175

== ENCOUNTER 2021-11-10 09:25 | Observation (INO) | payer OTHER ==
--- OUTSIDE RECORDS SUMMARY | 2021-11-10 09:30 | XMS REPORT | Continuity of Care Document ---
:1960 Author Organization [facility] t Address [address] [place] [address] Care Team Providers Name Role Phone Mirza NAVARRO Primary Care Physician HANDY Attending Clinician Unavailable Doctor Unassigned, Name Attending Clinician Unavailable MIRZA Attending Clinician Unavailable JHON Attending Clinician Unavailable Jhon NAVARRO Attending Clinician Carmen PYLE Attending Clinician Unavailable Carmen Pyle DO Attending Clinician Mirza NAVARRO Attending Clinician VICTORIA Attending Clinician Unavailable YASIR Attending Clinician Unavailable MD YASIR Attending Clinician Unavailable Gillian EMNP, R Attending Clinician Provider, Urgent Care Attending Clinician Unavailable Lore BURKS, F Attending Clinician Hemalatha Ring RN Attending Clinician Unavailable MABLE Attending Clinician Unavailable MD MABLE H. Attending Clinician Unavailable JHON Admitting Clinician Unavailable Carmen PYLE Admitting Clinician Unavailable VICTORIA Admitting Clinician Unavailable YASIR Admitting Clinician Unavailable MD YASIR Admitting Clinician Unavailable MABLE Admitting Clinician Unavailable MD MABLE HMarco Admitting Clinician Unavailable Payers Payer Name Policy Type Policy Number Effective Date Expiration Date S brianna MEDICARE PART A [id number] 2010 \\T\\ B 00:00:00 Problems Condition Condition Condition Status Onset Resolution Last Treating Co mments Source Name Details Category Date Date Treatment Clinician Date Cardiac Cardiac Disease Active Univers arrhythmia arrhythmia -25 it y of , , 00:00: [place] [...] Quantity Comments Source Exposure to Not sure [facility] SARS-CoV-2 (event) Medica l Branch Tobacco use and 2017-12-14 2017-12-14 Never used [facility] exposure 00:00:00 00:00:00 [facility] Sex Ass[birth year] At [birth year] [facility] 00:00:00 00:00:00 [facility] Smoking Status Start Date Stop Date Source Former smoker 2017-12-14 00:00:00 2017-12-14 00:00:00 [facility] Medications Ordered Filled Start Stop Current Ordering Indication Dosage Frequency Signature Comments Components Source Medication Medication Date Date Medication? Clinician (SIG) Name Name ondansetron 2021- No 4mg 4 mg, Slow Univers (ZOFRAN 3 03-06 IV Push, ity of (PF)) 21:00: 20:04 ONCE, 1 [place] injection 4 00 :00 dose, On Medi rosie mg [place] 10/23/21 Branch at 1500, LARISSA morpHINE 2021-2021- No 4mg 4 mg, Slow Un jennifer injection 4 10-23 03-06 IV Push, ity of mg 21:00: 20:04 ONCE, 1 [place] 00 :00 dose, On [facility] 10/23/21 Branch at 1500, STAT polyethylen Yes [id number] 1{packe Take 1 Univers e glycol 3-06 t} Packet by ity of 3350 00:00: mouth [place] (MIRALAX) 00 every 24 Medica l 17 gram (twenty-fo Branch powder ur) hours as needed for Constipati on. polyethylen Yes [id number] 1{packe Take 1 Univers e glycol 3-06 t} Packet by ity of 3350 00:00: mouth [place] (MIRALAX) 00 every 24 Medica l 17 gram (twenty-fo Branch powder ur) hours as needed for Constipati on. ondansetron 2021- No 4mg 4 mg, Slow Univers (ZOFRAN 10-16 IV Push, ity of (PF)) 17:45: 16:46 ONCE, 1 [place] injection 4 00 :00 dose, On Medi rosie mg [facility] 10/16/21 at 1145, LARISSA morpHINE 2021- No 4mg 4 mg, Slow Un jennifer injection 4 10-16 IV Push, ity of mg 17:45: 16:48 ONCE, 1 [place] 00 :00 dose, On [facility] 10/16/21 at 1145, STAT dicyclomine 2021- Yes 20mg 20 mg, Uni vers (BENTYL) 10-16 Oral, ity of tablet 20 17:45: 17:45 ONCE, 1 [place] mg [place] :00 dose, On [facility] 10/16/21 at 1145, Routine famotidine 2021- No 20mg 20 mg, Univ ers (PEPCID 10-16 Slow IV ity of (PF)) 16:15: 15:28 Push, [place] injection 00 :00 ONCE, 1 Medical 20 mg dose, On Branch [place] 10/16/21 at 1015, Routine iopamidol 2021- No [id number] 120mL 120 mL, Univers (ISOVUE 10-16- Intravenou ity o f 370-500 mL) 15:43: 15:42 s, ONCE, 1 [place] injection 00 :00 dose, On Medica l 120 mL [place] 10/16/21 at 1000, Routine ciprofloxac 2021-0 Yes [id number] 250mg Take 1 Univers in HCl 250 2-27 tablet by ity of mg tablet 00:00: mouth (two) Medical times Branch daily. metroNIDAZO 2021-0 Yes [id number] 500mg Take 1 Univers LE 500 mg 2-27 tablet by ity o f tablet 00:00: mouth (two) Medical times Branch daily. dicyclomine 2021-0 Yes [id number] 20mg Take 1 Univers 20 mg 2-27 tablet by ity of tablet 00:00: mouth 00 every 6 Medical (six) Branch hours as needed for Abdominal pain. ciprofloxac 2021-0 Yes [id number] 250mg Take 1 Univers in HCl 250 2-27 tablet by ity of mg tablet 00:00: mouth (two) Medical times Branch daily. metroNIDAZO 2021-0 Yes [id number] 500mg Take 1 Univers LE 500 mg 2-27 tablet by ity o f tablet 00:00: mouth (two) Medical times Branch daily. dicyclomine 2021-0 Yes [id number] 20mg Take 1 Univers 20 mg 2-27 tablet by ity of tablet 00:00: mouth [place] 00 every 6 Medical (six) Branch hours as needed for Abdominal pain. ciprofloxac 2021-0 Yes [id number] 250mg Take 1 Univers in HCl 250 2-27 tablet by ity of mg tablet 00:00: mouth (two) Medical times Branch daily. metroNIDAZO 2-0 Yes [id number] 500mg Take 1 Univers LE 500 mg 2-27 tablet by ity o f tablet 00:00: mouth 2 00 (two) Medical times Branch daily. dicyclomine 2021-0 Yes [id number] 20mg Take 1 Univers 20 mg 2-27 tablet by ity of tablet 00:00: mouth [place] [id number] every 6 Medical (six) Branch hours as needed for Abdominal pain. amiodarone 2021-0 Yes 200mg Take 200 Un jennifer 200 mg 2-22 mg by ity of tablet 10:30: mouth. [address] Branch aspirin 325 2-0 Yes 325mg Take 325 U nivers mg tablet 2-22 mg by ity of 10:30: mouth. [address] amiodarone 2-0 Yes 200mg Take 200 Un jennifer 200 mg 2-22 mg by ity of tablet 10:30: mouth. [address] aspirin 325 2-0 Yes 325mg Take 325 U nivers mg tablet 2-22 mg by ity of 10:30: mouth. [address] amiodarone 2021-0 Yes 200mg Take 200 Un jennifer 200 mg 2-22 mg by ity of tablet 10:30: mouth. [address] aspirin 325 2-0 Yes 325mg Take 325 U nivers mg tablet 2-22 mg by ity of 10:30: mouth. [address] amiodarone 2021-0 Yes 200mg Take 200 Un jennifer 200 mg 2-22 mg by ity of tablet 10:30: mouth. [address] aspirin 325 2-0 Yes 325mg Take 325 U nivers mg tablet 2-22 mg by ity of 10:30: mouth. [address] spironolact 2021-0 Yes .5mg Take 0.5 Un jennifer one 25 mg 2-22 mg by ity of tablet 10:30: mouth. [address] Branch spironolact 2-0 Yes .5mg Take 0.5 Un jennifer one 25 mg 2-22 mg by ity of tablet 10:30: mouth. [address] Branch spironolact 2-0 Yes .5mg Take 0.5 Un jennifer one 25 mg 2-22 mg by ity of tablet 10:30: mouth. [address] spironolact 2-0 Yes .5mg Take 0.5 Un jennifer one 25 mg 2-22 mg by ity of tablet 10:30: mouth. [address] ALPRAZolam 2-0 Yes [id number] TAKE 1 U nivers 2 mg tablet 2-22 TABLET BY ity of 00:00: MOUTH [place] 00 THREE Medical TIMES Branch DAILY NEEDED sulfamethox 2021-0 Yes [id number] 1{tbl} Take 1 Univers azole-trime 2-22 tablet by ity of thoprim 00:00: mouth 2 [place] (BACTRIM 00 (two) Medical DS) 800-160 times Branch mg per daily. tablet ALPRAZolam 0 Yes [id number] TAKE 1 U nivers 2 mg tablet 2-22 TABLET BY ity of 00:00: MOUTH [place] 00 THREE Medical TIMES Branch DAILY NEEDED sulfamethox 2021-0 Yes [id number] 1{tbl} Take 1 Univers azole-trime 2-22 tablet by ity of thoprim 00:00: mouth 2 [place] (BACTRIM 00 (two) Medical DS) 800-160 times Branch mg per daily. tablet ALPRAZolam Yes [id number] TAKE 1 U nivers 2 mg tablet 2-22 TABLET BY ity of 00:00: MOUTH THREE Medical TIMES Branch DAILY NEEDED sulfamethox 2021-0 Yes [id number] 1{tbl} Take 1 Univers azole-trime 2-22 tablet by ity of thoprim 00:00: mouth 2 [place] (BACTRIM 00 (two) Medical DS) 800-160 times Branch mg per daily. tablet ALPRAZolam Yes [id number] TAKE 1 U nivers 2 mg tablet 2-22 TABLET BY ity of 00:00: MOUTH 00 THREE Medical TIMES Branch DAILY NEEDED sulfamethox 2021-0 Yes [id number] 1{tbl} Take 1 Univers azole-trime 2-22 tablet by ity of thoprim 00:00: mouth 2 [place] (BACTRIM 00 (two) Medical DS) 800-160 times Branch mg per daily. tablet ALPRAZolam 2020-08 Yes [id number] TAKE 1 U nivers 2 mg tablet 2-15 TABLET BY ity of 00:00: MOUTH [place] 00 THREE Medical TIMES Branch DAILY NEEDED ALPRAZolam 2020-08 Yes [id number] TAKE 1 U nivers 2 mg tablet 2-15 TABLET BY ity of 00:00: MOUTH 00 THREE Medical TIMES Branch DAILY NEEDED traMADoL 50 2020-08 Yes [id number] 50mg Take 1 Univ ers mg tablet 2-15 tablet by ity o f 00:00: mouth [place] 00 every 6 Medical (six) Branch hours as needed for Pain (scale 7-10). Indication s: acute pain ALPRAZolam 2020-08 Yes [id number] TAKE 1 U nivers 2 mg tablet 2-15 TABLET BY ity of 00:00: MOUTH [place] 00 THREE Medical TIMES Branch DAILY NEEDED traMADoL 50 2020-08 Yes [id number] 50mg Take 1 Univ ers mg tablet 2-15 tablet by ity o f 00:00: mouth [place] 00 every 6 Medical (six) Branch hours as needed for Pain (scale 7-10). Indication s: acute pain ALPRAZolam 2020-08 Yes [id number] TAKE 1 U nivers 2 mg tablet 2-15 TABLET BY ity of 00:00: MOUTH [place] 00 THREE Medical TIMES Branch DAILY NEEDED traMADoL 50 2020-08 Yes [id number] 50mg Take 1 Univ ers mg tablet 2-15 tablet by ity o f 00:00: mouth [place] 00 every 6 Medical (six) Branch hours as needed for Pain (scale 7-10). Indication s: acute pain ALPRAZolam 2020-08 Yes [id number] TAKE 1 U nivers 2 mg tablet 2-15 TABLET BY ity of 00:00: MOUTH [place] 00 THREE Medical TIMES Branch DAILY NEEDED traMADoL 50 2020-08 Yes [id number] 50mg Take 1 Univ ers mg tablet 2-15 tablet by ity o f 00:00: mouth [place] 00 every 6 Medical (six) Branch hours as needed for Pain (scale 7-10). Indication s: acute pain ALPRAZolam 2020-08 Yes [id number] TAKE 1 U nivers 2 mg tablet [...] s: acute pain ALPRAZolam 2020-0 2020- No [id number] TAKE 1 Univers 2 mg tablet 9-15 12-15 TABLET BY it y of 00:00: 00:00 MOUTH [place] 00 :00 THREE Medical TIMES Branch DAILY NEEDED traMADoL 50 2020- Yes acute pain 50mg Take 1 Univers [...] 19:32: mouth. [place] 48 Medical Branch spironolact 2019-08 Yes .5mg Take 0.5 Un jennifer one 25 mg 0-29 mg by ity of tablet 14:32: mouth. [address] spironolact 2019- Yes .5mg Take 0.5 Un jennifer one 25 mg 0-29 mg by ity of tablet 14:32: mouth. [address] spironolact 2019- Yes .5mg Take 0.5 Un jennifer one 25 mg 0-29 mg by ity of tablet 14:32: mouth. [address] spironolact 2019- Yes .5mg Take 0.5 Un jennifer one 25 mg 0-29 mg by ity of tablet 14:32: mouth. [address] spironolact 2019- Yes .5mg Take 0.5 Un jennifer one 25 mg 0-29 mg by ity of tablet 14:32: mouth. [address] spironolact 2019- Yes .5mg Take 0.5 Un jennifer one 25 mg 0-29 mg by ity of tablet 14:32: mouth. [address] DIGOXIN 2018-0 Yes Take by Univer s ORAL 7-10 mouth. ity of 19:00: [address] ENALAPRIL 0 Yes Take by [facility] ers MALEATE 7-10 mouth. ity of ORAL 19:00: [address] sacubitril- Yes Take by Un jennifer valsartan 7-10 mouth 2 ity of (ENTRESTO) 19:00: (two) [place] 24-26 mg 17 times Medical Tab daily. Branch furosemide 2018-0 Yes 80mg Take 80 mg U nivers (LASIX) 80 7-10 by mouth ity o f mg tablet 19:00: daily. [address] furosemide 2018-0 Yes 80mg Take 80 mg U nivers (LASIX) 80 7-10 by mouth ity o f mg tablet 14:00: daily. [address] DIGOXIN 2018-0 Yes Take by Univer s ORAL 7-10 mouth. ity of 14:00: [address] ENALAPRIL 2018-0 Yes Take by Univ ers MALEATE 7-10 mouth. ity of ORAL 14:00: [address] sacubitril- 2018- Yes Take by Un jennifer valsartan 7-10 mouth 2 ity of (ENTRESTO) 14:00: (two) [place] 24-26 mg 17 times Medical Tab daily. Branch furosemide 2019-0 Yes 80mg Take 80 mg U nivers (LASIX) 80 7-10 by mouth ity o f mg tablet 14:00: daily. [place] [address] Medical Branch DIGOXIN 2018-0 Yes Take by Univer s ORAL 7-10 mouth. ity of 14:00: [address] Branch ENALAPRIL 2018-0 Yes Take by Univ ers MALEATE 7-10 mouth. ity of ORAL 14:00: [address] Branch sacubitril- 0 Yes Take by Un jennifer valsartan 7-10 mouth 2 ity of (ENTRESTO) 14:00: (two) [place] 24-26 mg 17 times Medical Tab daily. Branch furosemide 2018-0 Yes 80mg Take 80 mg U nivers (LASIX) 80 7-10 by mouth ity o f mg tablet 14:00: daily. [address] DIGOXIN 2018-0 Yes Take by Univer s ORAL 7-10 mouth. ity of 14:00: [address] ENALAPRIL 2018-0 Yes Take by Univ ers MALEATE 7-10 mouth. ity of ORAL 14:00: [address] Branch sacubitril- 0 Yes Take by Un jennifer valsartan 7-10 mouth 2 ity of (ENTRESTO) 14:00: (two) [place] 24-26 mg 17 times Medical Tab daily. Branch furosemide 2018-0 Yes 80mg Take 80 mg U nivers (LASIX) 80 7-10 by mouth ity o f mg tablet 14:00: daily. [address] DIGOXIN 2018-0 Yes Take by Univer s ORAL 7-10 mouth. ity of 14:00: [address] ENALAPRIL 2018-0 Yes Take by Univ ers MALEATE 7-10 mouth. ity of ORAL 14:00: [address] Branch sacubitril- 2018-0 Yes Take by Un jennifer valsartan 7-10 mouth 2 ity of (ENTRESTO) 14:00: (two) [place] 24-26 mg 17 times Medical Tab daily. Branch furosemide 2019-0 Yes 80mg Take 80 mg U nivers (LASIX) 80 7-10 by mouth ity o f mg tablet 14:00: daily. [address] DIGOXIN 2019-0 Yes Take by Univer s ORAL 7-10 mouth. ity of 14:00: [address] ENALAPRIL 2019-0 Yes Take by Univ ers MALEATE 7-10 mouth. ity of ORAL 14:00: [address] sacubitril- 2018-0 Yes Take by Un jennifer valsartan 7-10 mouth 2 ity of (ENTRESTO) 14:00: (two) [place] 24-26 mg 17 times Medical Tab daily. Branch furosemide 2019-0 Yes 80mg Take 80 mg U nivers (LASIX) 80 7-10 by mouth ity o f mg tablet 14:00: daily. [address] DIGOXIN 2018-0 Yes Take by Univer s ORAL 7-10 mouth. ity of 14:00: [address] ENALAPRIL 2018-0 Yes Take by Univ ers MALEATE 7-10 mouth. ity of ORAL 14:00: [address] sacubitril- Yes Take by Un jennifer valsartan 7-10 mouth 2 ity of (ENTRESTO) 14:00: (two) [place] 24-26 mg 17 times Medical Tab daily. Branch furosemide 2019-0 Yes 80mg Take 80 mg U nivers (LASIX) 80 7-10 by mouth ity o f mg tablet 14:00: daily. [address] DIGOXIN 2018-0 Yes Take by [facility] ORAL 7-10 mouth. ity of 14:00: [address] ENALAPRIL 2018-0 Yes Take by Univ ers MALEATE 7-10 mouth. ity of ORAL 14:00: [address] sacubitril- 2018-0 Yes Take by Un jennifer valsartan 7-10 mouth 2 ity of (ENTRESTO) 14:00: (two) [place] 24-26 mg 17 times Medical Tab daily. Branch furosemide 2019-0 Yes 80mg Take 80 mg U nivers (LASIX) 80 7-10 by mouth ity o f mg tablet 14:00: daily. [address] DIGOXIN 2019-0 Yes Take by Univer s ORAL 7-10 mouth. ity of 14:00: [address] ENALAPRIL 2019-0 Yes Take by Univ ers MALEATE 7-10 mouth. ity of ORAL 14:00: [address] sacubitril- 2019-0 Yes Take by Un jennifer valsartan 7-10 mouth 2 ity of (ENTRESTO) 14:00: (two) [place] 24-26 mg 17 times Medical Tab daily. Branch furosemide Yes 80mg Take 80 mg U nivers (LASIX) 80 7-10 by mouth ity o f mg tablet 14:00: daily. [place] [address] Medical Branch DIGOXIN Yes Take by [facility] ORAL 7-10 mouth. ity of 14:00: [place] [address] Medical Branch ENALAPRIL Yes Take by Univ ers MALEATE 7-10 mouth. ity of ORAL 14:00: [place] [address] Medical Branch sacubitril- Yes Take by Un jennifer valsartan 7-10 mouth 2 ity of (ENTRESTO) 14:00: (two) [place] 24-26 mg 17 times Medical Tab daily. Branch furosemide Yes 80mg Take 80 mg U nivers (LASIX) 80 7-10 by mouth ity o f mg tablet 14:00: daily. [place] [address] Medical Branch DIGOXIN Yes Take by [facility] [facility] ORAL 7-10 mouth. ity of 14:00: [place] [address] Medical Branch ENALAPRIL Yes Take by Univ ers MALEATE 7-10 mouth. ity of ORAL 14:00: [address] Branch sacubitril- Yes Take by Un jennifer valsartan 7-10 mouth 2 ity of (ENTRESTO) 14:00: (two) [place] 24-26 mg 17 times Medical Tab daily. Branch dicyclomine Yes Abdominal 20mg Take 1 Univers (BENTYL) 20 5-07 pain, tablet by it y of mg tablet 00:00: unspecified mouth 4 00 abdominal (four) Medical location times Branch daily. dicyclomine Yes [id number] 20mg Take 1 Univers (BENTYL) 20 5-07 tablet by ity of mg tablet 00:00: mouth 4 [place] 00 (four) Medical times Branch daily. dicyclomine Yes [id number] 20mg Take 1 Univers (BENTYL) 20 5-07 tablet by ity of mg tablet 00:00: mouth 4 (four) Medical times Branch daily. dicyclomine Yes [id number] 20mg Take 1 Univers (BENTYL) 20 5-07 tablet by ity of mg tablet 00:00: mouth 4 00 (four) Medical times Branch daily. dicyclomine Yes [id number] 20mg Take 1 Univers (BENTYL) 20 5-07 tablet by ity of mg tablet 00:00: mouth 4 [place] 00 (four) Medical times Branch daily. dicyclomine Yes [id number] 20mg Take 1 Univers (BENTYL) 20 5-07 tablet by ity of mg tablet 00:00: mouth 4 [place] 00 (four) Medical times Branch daily. dicyclomine Yes [id number] 20mg Take 1 Univers (BENTYL) 20 5-07 tablet by ity of mg tablet 00:00: mouth 4 00 (four) Medical times Branch daily. dicyclomine Yes [id number] 20mg Take 1 Univers (BENTYL) 20 5-07 tablet by ity of mg tablet 00:00: mouth 4 00 ([facility]) Medical times Branch daily. dicyclomine 2021- No [id number] 20mg Take 1 Univers (BENTYL) 20 5-07 02-27 tablet by it y of mg tablet 00:00: 00:00 [place] 4 [place] :[place] (four) Medical times Branch daily. OMEGA 3 Yes None Univers ORAL 9-21 Entered ity of 20:48: [address] OMEGA 3 Yes None Univers ORAL 9-21 Entered ity of 15:48: [address] OMEGA 3 Yes None Univers ORAL 9-21 Entered ity of 15:48: [address] OMEGA 3 Yes None Univers ORAL 9-21 Entered ity of 15:48: [address] OMEGA 3 Yes None Univers ORAL 9-21 Entered ity of 15:48: [address] OMEGA 3 Yes None Univers ORAL 9-21 Entered ity of 15:48: [address] OMEGA 3 Yes None Univers ORAL 9-21 Entered ity of 15:48: [address] OMEGA 3 Yes None Univers ORAL 9-21 Entered ity of 15:48: [address] OMEGA 3 Yes None Univers ORAL 9-21 Entered ity of 15:48: [address] OMEGA 3 2016-0 Yes None Univers ORAL 9-21 Entered ity of 15:48: [place] [address] Medical Branch OMEGA 3 2016-0 Yes None Univers ORAL 9-21 Entered ity of 15:48: [place] [address] Medical Branch Vital Signs Vital Name Observation Time Observation Value Comments Source Systolic blood 2021-10-23 20:00:00 102 mm[Hg] Univer sity of pressure [place] [facility] Diastolic blood 2021-10-23 20:00:00 69 mm[Hg] Unive rsity of pressure [place] [facility] Heart rate 2021-10-23 20:00:00 76 /min [facility] [place] [facility] Respiratory rate 2021-10-23 20:00:00 18 /min Univ ersity of [place] [facility] Oxygen saturation in 2021-10-23 20:00:00 94 /min University of Arterial blood by [place] 99dresses Pulse oximetry Branch Body temperature 2021-10-23 16:54:00 36.44 Freya Univ [facility] [place] [facility] Body height 2021-10-23 16:54:00 157.5 cm [facility] [place] [facility] Body weight 2021-10-23 16:54:00 55.339 kg [facility] [place] [facility] BMI 2021-10-23 16:54:00 22.31 kg/m2 [facility] [place] [facility] Systolic blood 2021-10-16 16:44:33 108 mm[Hg] Univer sity of pressure [place] [facility] Diastolic blood 2021-10-16 16:44:33 66 mm[Hg] Unive rsity of pressure [place] [facility] Heart rate 2021-10-16 16:44:33 78 /min [facility] [place] [facility] Respiratory rate 2021-10-16 16:44:33 16 /min Univ ersity [facility] [place] [facility] Oxygen saturation in 2021-10-16 16:44:33 96 /min University of Arterial blood by [place] [employer] rosie Pulse oximetry Branch Body temperature 2021-10-16 15:05:45 35.61 Freya [facility] [place] [facility] Body height 2021-10-16 14:50:00 157.5 cm [facility] [place] [facility] Body weight 2021-10-16 14:50:00 55.339 kg [facility] [place] [facility] BMI 2021-10-16 14:50:00 22.31 kg/m2 [facility] [place] [facility] Diastolic blood 2021-08-03 18:46:00 52 mm[Hg] [facility] Body weight 2021-08-03 18:46:00 56.201 kg [facility] BMI 2021-08-03 18:46:00 22.66 kg/m2 [facility] Systolic blood 2021-08-03 18:46:00 98 mm[Hg] [facility] [place] Procedures Procedure Date / Time Performing Clinician Source Performed EXTERNAL PROVIDER 2021-11-09 05:01:00 Doctor Unassigned, No Univ [facility] RECORDS Name Medical Branch CT ABDOMEN PELVIS WO 2021-10-23 19:22:14 Nikos Ferreira [facility] CONTRAST [facility] URINALYSIS 2021-10-23 17:30:00 Nikos Ferreira [facility] PROTHROMBIN TIME / INR 2021-10-23 17:23:00 Nikos Ferreira [facility] ACTIVATED PARTIAL 2021-10-23 17:23:00 Nikos Ferreira [facility] THRMPLAS LUIS [facility] COVID-19 (ID NOW RAPID 2021-10-23 17:23:00 Nikos Ferreira [facility] TESTING) [facility] HB ECG ROUTINE & RHYTHM 2021-10-23 17:21:17 Nikos Ferreira [facility] STRIP [facility] Branch LIPASE 2021-10-23 17:17:00 Jhon Nikos [facility] TROPONIN I 2021-10-23 17:17:00 Nikos Ferreira [facility] COMP. METABOLIC PANEL 2021-10-23 17:17:00 Nikos Ferreira [facility] ([id number]) [facility] CBC WITH DIFF 2021-10-23 17:17:00 Jhon Nikos [facility] N-TERMINAL PRO-BNP 2021-10-23 17:17:00 Nikos Ferreira [facility] CONSENT/REFUSAL FOR 2021-10-23 16:45:00 [facility] Name Medical Branch URINALYSIS 2021-10-16 16:26:00 Yuli Pyle [facility] CT ABDOMEN PELVIS W 2021-10-16 15:51:03 Yuli Pyle [facility] [place] CONTRAST Medical Branch LIPASE 2021-10-16 15:24:00 Yuli Pyle [facility] TROPONIN I 2021-10-16 15:24:00 Yuli Pyle [facility] COMP. METABOLIC PANEL 2021-10-16 15:24:00 Yuli Pyle [facility] [place] [id number] CBC WITH DIFF 2021-10-16 15:24:00 Yuli Pyle [facility] NOTICE OF PRIVACY 2021-10-16 14:46:21 Doctor Unassigned, No Univ ersity [facility] PRACTICES Name Medical Branch CONSENT/REFUSAL FOR 2021-10-16 14:45:38 [facility]igned, [facility]AT[facility] Name [facility] XR WRIST 3+ VW RIGHT 2021-08-03 19:23:00 [facility] EXTERNAL PROVIDER 2020-12-23 05:01:00 Doctor Unassigned, No [facility] [place] REC[facility] Name [facility] Plan of Care Planned Activity Planned Date Details Comments Source Future Scheduled 2021-06-17 Depression screening Uni versity of Test 00:00:00 (procedure) [code = [facility] [place] [facility] dicok 719376582] Branch Future Scheduled 2021-02-16 INFLUENZA VACCINE Postponed from Univ ersity of Test 00:00:00 (#1) [code = 04/20/2020 [facility] INFLUENZA VACCINE (Refused) Branch (#1)] Future Scheduled 2014 Screening for University of Test 00:00:00 malignant neoplasm [place] Med ical of lung (procedure) Branch [code = 165058896] Future Scheduled 2009 Screening for occult Uni versity of Test 00:00:00 blood in feces [facility] (procedure) [code = Branch [id number]] Future Scheduled 2009 Stool DNA-based Universi ty of Test 00:00:00 colorectal cancer [place] Medi rosie screening Branch (procedure) [code = 227926603040343] Future Scheduled 2009 Flexible fiberoptic Univ ersity of Test 00:00:00 sigmoidoscopy [facility] (procedure) [code = Branch [id number]] Future Scheduled 2009 Screening for University of Test 00:00:00 malignant neoplasm [place] Med ical of colon (procedure) Branch [code = 449583659] Future Scheduled 2009 Screening for University of Test 00:00:00 malignant neoplasm [place] Med ical of colon (procedure) Branch [code = 582973032] Future Scheduled 2009 Zoster Recombinant Unive rsity of Test 00:00:00 Vaccine (SHINGRIX) [place] Med ical (1 of 2) [code = Branch Zoster Recombinant Vaccine (SHINGRIX) (1 of 2)] Future Scheduled 2009-06-07 Screening for University of Test 00:00:00 malignant neoplasm [place] Med ical of cervix Branch (procedure) [code = 056008453] Future Scheduled 2007-07-25 Screening for [facility] Test 00:00:00 malignant neoplasm [place] [facility] (procedure) [code = 554539041] Future Scheduled 1978 DTaP,Tdap,and Td Univers ity of Test 00:00:00 Vaccines (1 - Tdap) [facility] dical [code = Branch DTaP,Tdap,and Td Vaccines (1 - Tdap)] Future Scheduled 1965 PNEUMOCOCCAL 0-64 Univer sity of Test 00:00:00 YEARS COMBINED [place] [facility] SERIES (1 of 3 - Branch PCV13) [code = PNEUMOCOCCAL 0-64 YEARS COMBINED SERIES (1 of 3 - PCV13)] Encounters Start End Encounter Admission Attending Care Care Encounter Source Date/Time Date/Time Type Type Clinicians Facility Department ID 2021-11-09 2021-11-09 Outpatient R HANDY, [facility] [id number] -[id number] Univers 15:20:00 15:20:00 [place] [id number] ity o f [facility] 2021-11-09 2021-11-09 Outpatient R HANDY [facility] [id number] Univers 15:20:00 15:20:00 [place] ity o f [facility] 2021-11-09 2021-11-09 Orders Doctor CALDERON [id number] Univers 00:00:00 00:00:00 Only Unassigned, ROLANDO 350.1.13.10 ity of [place] [facility] 4.2.7.2.686 Mikey as [phone] [address] 2021-11-03 2021-11-03 Outpatient Reshma BLUE [facility] [id number] -[id number] Univers 13:15:00 13:15:00 CASTRO [id number] tam [facility] 2021-11-03 2021-11-03 Outpatient Reshma BLUE [facility] [id number] Univers 13:15:00 13:15:00 CASTRO tam [facility] 2021-11-02 2021-11-02 Outpatient Reshma BLUE [facility] [id number] -[id number] Univers 12:00:00 12:00:00 CASTRO [id number] tam [facility] 2021-11-02 2021-11-02 Outpatient Reshma BLUE [facility] [id number] Univers 12:00:00 12:00:00 CASTRO tam [facility] 2021-10-23 2021-10-23 Emergency [facility] [id number] Univers 10:57:00 14:51:00 NIKOS villalta [facility] 2021-10-23 2021-10-23 Emergency [facility] [id number] Univers 10:57:00 14:51:00 Nikos CASTILLO 350.1.13.10 i ty of [place] 4.2.7.2.686 [facility] [phone] [address] 2021-10-16 2021-10-16 Emergency X [facility] E[facility] [id number] Univers 08:57:00 11:17:00 YULI villalta [facility] 2021-10-16 2021-10-16 Emergency [facility] 1.2.840.114 [id number] Univers 08:57:00 11:17:00 Yuli CASTILLO 350.1.13.10 ity of [place] 4.2.7.2.686 [facility] [id number] [address] 2021-10-16 2021-10-16 Orders Doctor CALDERON 1.2.840.114 [id number] Univers 00:00:00 00:00:00 Only Unassigned, ROLANDO 350.1.13.10 ity of [place] [facility] 4.2.7.2.686 Mikey as [phone] [address] 2021-10-11 2021-10-11 Outpatient Reshma BLUE [facility] [id number] Univers 10:15:00 10:43:38 CASTRO villalta [facility] 2021-10-11 2021-10-11 Outpatient Reshma BLUE [facility] [id number] -20 Univers 10:15:00 10:15:00 CASTRO [id number] pawan [facility] 2021-09-30 2021-09-30 Telephone [facility] 1.2.282.602 [id number] Univers 00:00:00 00:00:00 [facility] 350.1.13.10 it y of [place] 4.2.7.2.686 Mikey as MICHAEL?BLEA [phone] [address] [facility] 2021-09-20 2021-09-20 Telephone [facility] 1.2.398.775 [id number] Univers 00:00:00 00:00:00 [facility] 350.1.13.10 it y of [place] 4.2.7.2.686 Mikey as MICHAEL?BLEA [phone] [facility] 044 [facility] 2021-08-04 2021-08-04 [place] [facility] 1.2.840.040 [id number] Univers 00:00:00 00:00:00 [facility] 350.1.13.10 it y of [place] 4.2.7.2.686 Mikey as MICHAEL?BLEA [phone] [facility] [address] [place] [facility] 2021-08-03 2021-08-03 [facility] 1.2.840.114 [id number] Univers 13:09:41 23:59:00 Encounter [facility] 350.1.13.10 ity of [place] 4.2.7.2.686 Mikey as MICHAEL?BLEA [phone] [facility] [address] [place] [facility] 2021-08-03 2021-08-03 Outpatient Reshma BLUE [facility] [id number] Univers 12:00:00 13:12:07 CASTRO ity [facility] 2021-08-032021-08-03 Office [facility] 1.2.840.114 [id number] [facility] 12:00:00 12:15:00 Visit [facility] 350.1.13.10 it y of [place] 4.2.7.2.686 Mikey as MICHAEL?BLEA [phone] Ca jaskaran [address] OFFICE BUILDING 2021-08-03 2021-08-03 Telephone [facility] 1.2.171.595 [id number] Univers 00:00:00 00:00:00 [facility] 350.1.13.10 it y of [place] 4.2.7.2.686 Mikey as MICHAEL?BLEA [phone] [address] OFFICE BUILDING 2021-02-02 2021-02-02 Outpatient VICTORIA, [facility] [id number] 504 [place] 00:00:00 00:00:00 NADIM 145 Method i 2021-01-27 2021-01-27 Outpatient [facility] [id number] 321 [place] 00:00:00 00:00:00 NADIM [address] 2020-12-23 2020-12-23 Orders Doctor KVNG 1.2.840.114 [id number] 00:00:00 00:00:00 Only Unassigned, ROLANDO 350.1.13.10 [place] [facility] 4.2.7.2.686 [id number] 009 2020-12-04 2020-12-06 Inpatient YASIR, [facility] [id number] 73 [place] 00:00:00 00:00:00 JENNIFER [address] 2020-12-05 2020-12-05 [facility] 1.2.026.712 [id number] 00:00:00 00:00:00 [facility] 350.1.13.10 [place] 4.2.7.2.686 Professio [phone] [place] [address] [address] 2020-12-02 2020-12-02 Emergency [facility] 1.2.973.589 [id number] 10:56:00 12:00:00 Lori Castillo 350.1.13.10 [place] 4.2.7.2.686 [place] [id number] 084 2020-12-02 2020-12-02 Urgent Provider, [facility] 1.2.105.736 [id number] 07:50:30 09:40:15 Care [facility] 350.1.13.10 Care [place] 4.2.7.2.686 Professio [phone] nal 044 [address] One 2020-12-02 2020-12-02 [facility]phone [facility] 1.2.350.103 [id number] 00:00:00 00:00:00 [facility] 350.1.13.10 [place] 4.2.7.2.686 Professio [phone] nal [facility] Office [address] 2020-11-30 2020-11-30 [facility]phone [facility] 1.2.638.637 [id number] 00:00:00 00:00:00 [facility] 350.1.13.10 [place] 4.2.7.2.686 Professio [phone] nal [facility] Office [address] One 2020-11-26 2020-11-27 [facility] 1.2.840.114 [id number] 21:15:00 00:04:00 Ernestina Brito [place] 350.1.13.10 [place] 4.2.7.2.686 [place] [phone] 084 2020-11-27 2020-11-27 Nurse Hemalatha CALDERON 1.2.840.114 [id number] 00:00:00 00:00:00 Triage ROLANDO Ring 350.1.13.10 [facility] 4.2.7.2.686 [id number] 019 2020-09-22 2020-09-22 Telephone [facility] 1.2.826.667 [id number] 00:00:00 00:00:00 [facility] 350.1.13.10 [place] 4.2.7.2.686 Professio [phone] nal 044 Office [address] 2020-09-01 2020-09-01 Office [facility] 1.2.840.114 [id number] 12:28:02 12:43:02 Visit [facility] 350.1.13.10 [place] 4.2.7.2.686 dina [phone] nal 044 Office [address] 2020-06-29 2020-07-04 Inpatient LILLIAN AKINS [facility] [id number] [place] 00:00:00 00:00:[address] Results Test Description Test Time Test Comments Results Result Comments Source TROPONIN I 2021-10-23 18:14:02 Test Item Value Reference Range Interpretation Comme nts TROPONIN I (test code = 0.008 ng/mL See_Comment [Au tomated message] The 0880978754) system which ge nerated this result tra [...] biotin. Lab Interpretation Normal (test code = 95600-6) [facility] WITH [id number] 18:12:42 Test Item Value Reference Range Interpretation Comments WBC (test code = See_Comment [Automated 7590-2) message] The sy stem which generated this result transmitted reference range : 4.30 - 11.10 10*3/?L. The reference range was not used to interpret this result as normal/abnormal . RBC (test code = See_Comment [Automated 503-8) message] The sy stem which generated this [...] (test code = 59.7 fL 39.0-49.9 H 00917-5) RDW-CV (test code = 17.7 % 12.0-15.5 H 788-0) PLT (test code = See_Comment [Automated 777-3) message] The sy stem which generated this result transmitted reference range : 166 - 358 10*3/ ?L. The reference r sesar was not used to interpret this result as normal/abnormal . MPV (test code = 11.4 fL 9.5-12.9 00192-2) NRBC/100 WBC (test See_Comment [Automat ed code = 2693954301) message] The system which generated this result transmitted reference range : 0.0 - 10.0 /100 WBCs. The refer ence range was not u sed to interpret th is result as normal/abnormal . NRBC x10^3 (test code <0.01 See_Comment [Auto mated = 6248514678) message] The s ystem which generated this result transmitted reference range : 10*3/?L. The reference range was not used to interpret this result as normal/abnormal . GRAN MAT (NEUT) % 81.7 % (test code = 770-8) IMM GRAN % (test code 1.10 % = 8731020642) LYMPH % (test code = 7.7 % 736-9) MONO % (test code = 8.6 % 5905-5) EOS % (test code = 0.2 % 713-8) BASO % (test code = 0.7 % 706-2) GRAN MAT x10^3(ANC) 3.62 10*3/uL 1.88-7.09 (test code = 9640061951) IMM GRAN x10^3 (test 0.05 10*3/uL 0.00-0.06 code = 8944300009) LYMPH x10^3 (test code 0.34 10*3/uL 1.32-3.29 L = 731-0) MONO x10^3 (test code 0.38 10*3/uL 0.33-0.92 = 742-7) EOS x10^3 (test code = <0.03 0.03-0.39 L 711-2) BASO x10^3 (test code 0.03 10*3/uL 0.01-0.07 = 704-7) Lab Interpretation Abnormal (test code = 75808-2) [id number] 18:10:41 Test Item Value Reference Range Interpretation Comments NT-proBNP (test code 23356 pg/mL See_Comment H [Autom ated = 3393731475) message] The system which generated this result transmitted reference range : <=125. The reference range was not used to interpret this result as normal/abnormal . FLY (test code = FLY) Biotin has been reported to cause a negative bias, interpret results relative to patient's use of biotin. Lab Interpretation Abnormal (test code = 58180-3) [facility]. METABOLIC PANEL ([id number])2021-10-23 18:02:23 Test Item Value Reference Range Interpretation Comments NA (test code = 132 mmol/L 135-145 L 0363008438) K (test code = 4.4 mmol/L 3.5-5.0 7464475501) CL (test code = 101 mmol/L 98-108 8609000052) CO2 TOTAL (test code = 17 mmol/L 23-31 L 6108353842) AGAP (test code = 2-16 4171992773) BUN (test code = 22 mg/dL 7-23 5899946927) GLUCOSE (test code = 112 mg/dL 70-110 H 2174203544) CREATININE (test code = 2.43 mg/dL 0.50-1.04 H 0814918029) TOTAL BILI (test code = 0.9 mg/dL 0.1-1.7 6014569779) CALCIUM (test code = 8.5 mg/dL 8.6-10.6 L 2067478724) T PROTEIN (test code = 7.1 g/dL 6.3-8.2 7580185953) ALBUMIN (test code = 4.1 g/dL 3.5-5.0 9947301692) ALK PHOS (test code = 211 U/L 34-122 H 8470857865) ALTv (test code = 91 U/L 5-35 H 2-6) AST(SGOT) (test code = 67 U/L 13-40 H 3194670353) eGFR (test code = mL/min/1.73m2 7000565599) FLY (test code = FLY) Association of [...] tests). Lab Interpretation Abnormal (test code = 70390-6) [facility] 18[facility]02:18 Test Item Value Reference Range Interpretation Comments LIPASE (test code = 4816961268) 101 U/L 0-220 Lab Interpretation (test code = Normal 29362-0) [facility] [id number] 17:59:21 Test Item Value Reference Range Interpretation Comments APTT Patient (test See_Comment [Automat ed code = 3173-2) message] The system which generated this result transmitted reference range : 23 - 38 Seconds . The reference range was not used to interpr et this result as normal/abnormal . FLY (test code = FLY) The [facility] patient population mean normal value for aPTT is 30 seconds. Lab Interpretation Normal (test code = 52611-2) [facility] / [id number] 17:57:40 Test Item Value Reference Range Interpretation [...] tions. Lab Interpretation (test Normal code = 33866-2) [facility] [id number] 16:03:07 Test Item Value Reference Interpretation Comments Range TROPONIN I (test <0.012 See_Comment [Automated code = 3462956017) message] The system which generated this result [...] biotin. Lab Interpretation Normal (test code = 68496-8) [facility]OLIC PAN[facility] (47185)2021-10-16 15:52:01 Test Item Value Reference Range Interpretation Comments NA (test code = 135 mmol/L 135-145 9259246823) K (test code = 3.9 mmol/L 3.5-5.0 6222061011) CL (test code = 98 mmol/L 98-108 7448419913) CO2 TOTAL (test code = 22 mmol/L 23-31 L 2718714919) AGAP (test code = 2-16 7811685703) BUN (test code = 25 mg/dL 7-23 H 3148307486) GLUCOSE (test code = 117 mg/dL 70-110 H 5839394266) CREATININE (test code = 2.20 mg/dL 0.50-1.04 H 6462409633) TOTAL BILI (test code = 0.8 mg/dL 0.1-1.9 7835604777) CALCIUM (test code = 8.8 mg/dL 8.6-10.6 5635427786) T PROTEIN (test code = 7.4 g/dL 6.3-8.2 8263845983) ALBUMIN (test code = 4.2 g/dL 3.5-5.0 7000878054) ALK PHOS (test code = 174 U/L 34-122 H 7627412146) ALTv (test code = 25 U/L 5-35 1742-6) AST(SGOT) (test code = 45 U/L 13-40 H 3166185559) eGFR (test code = mL/min/1.73m2 6104906183) FLY (test code = FLY) Association of [...] tests). Lab Interpretation Abnormal (test code = 57934-9) [facility] 15:51:06 Test Item Value Reference Range Interpretation Comments LIPASE (test code = 4539786643) 68 U/L 0-220 Lab Interpretation (test code = Normal 87661-5) [facility] [id number] 15:40:44 Test Item Value Reference Range Interpretation Comments WBC (test code = See_Comment [Automated 6690-2) message] The sy stem which generated this result transmitted reference range : 4.30 - 11.10 10*3/?L. The reference range was not used to interpret this result as normal/abnormal . RBC (test code = See_Comment L [Automated 789-8) message] The sy stem which [...] (test code = 58.0 fL 39.0-49.9 H 49993-1) RDW-CV (test code = 16.9 % 12.0-15.5 H 788-0) PLT (test code = See_Comment [Automated 777-3) message] The sy stem which generated this result transmitted reference range : 166 - 358 10*3/ ?L. The reference r sesar was not used to interpret this result as normal/abnormal . MPV (test code = 10.8 fL 9.5-12.9 72508-3) NRBC/100 WBC (test See_Comment [Automat ed code = 2232692332) message] The system which generated this result transmitted reference range : 0.0 - 10.0 /100 WBCs. The refer ence range was not u sed to interpret th is result as normal/abnormal . NRBC x10^3 (test code <0.01 See_Comment [Auto mated = 6101923533) message] The s ystem which generated this result transmitted reference range : 10*3/?L. The reference range was not used to interpret this result as normal/abnormal . GRAN MAT (NEUT) % 70.6 % (test code = 770-8) IMM GRAN % (test code 0.50 % = 5272164163) LYMPH % (test code = 14.3 % 736-9) MONO % (test code = 13.2 % 5905-5) EOS % (test code = 0.5 % 713-8) BASO % (test code = 0.9 % 706-2) GRAN MAT x10^3(ANC) 3.06 10*3/uL 1.88-7.09 (test code = 8412677642) IMM GRAN x10^3 (test <0.03 0.00-0.06 code = 2134854432) LYMPH x10^3 (test code 0.62 10*3/uL 1.32-3.29 L = 731-0) MONO x10^3 (test code 0.57 10*3/uL 0.33-0.92 = 742-7) EOS x10^3 (test code = <0.03 0.03-0.39 L 711-2) BASO x10^3 (test code 0.04 10*3/uL 0.01-0.07 = 704-7) Lab Interpretation Abnormal (test code = 93493-5) [facility]-CoV-2 (COVID-19) RNA [Presence] in Respiratory specimen by TALIA with probe [id number] 09:35:29 Test Item Value Reference Range Interpretation Comments SARS-CoV-2 (COVID-19) RNA Not detected Not-Detected [Presence] in Respiratory specimen by TALIA with probe detection (test code = 98343-2) SARS-CoV-2 (COVID-19) RNA [Presence] in Respiratory specimen by TALIA with probe [id number] 23:17:05 Test Item Value Reference Range Interpretation Comments SARS-CoV-2 (COVID-19) RNA Not detected Not-Detected [Presence] in Respiratory specimen by TALIA with probe detection (test code = 66499-0)"
--- NOTE | 2021-11-10 10:16 | RAD REPORT ---
EXAM DESCRIPTION: RAD - Chest Single View - 11/10/2021 9:58 am CLINICAL HISTORY: SWELLING COMPARISON: Portable 12/25/2020 TECHNIQUE: AP portable chest image was obtained 11/10/2021 9:58 am . FINDINGS: Prominent cardiomegaly is present similar to the prior study. Central vasculature is upper normal. Patient is a baseline prominence of the interstitial pattern. Overlying breast soft tissue i ncreases density in the lung [place]. Defibrillator is in place. No measurable pleural effusion and no pneumothorax. No acute bony abnormality seen. No acute aortic findings suspected. IMPRESSION: Cardiomegaly, mild vascular engorgement and prominent interstitial pattern noted. Findings are similar to the prior study. Findings suggest a mild failure/ volume overload.
[2021-11-10 10:41] LABS: Absolute Lymphocytes (CBC) 0.5 K/uL (0.7-4.9)
--- NOTE | 2021-11-10 11:04 | EDPHYS ---
Physician Documentation [facility] Name: Lise Loera Age: 61 yrs Sex: Female : 1960 Arrival Date: 11/10/2021 Time: 09:28 Bed 25 Private MD: ED Physician Mo Vanessa HPI: 11/10 10:17 This 61 yrs old Female presents to ER via Ambulatory with complaints of Left chest pain.kdr 10:28 Onset: 1 week(s) ago. The pain does not radiate. kdr 10:29 Patient complains of swelling all over her body. She states that she has recently been kdr taking Lasix 80 mg twice a day however she continues to have swelling and shortness of breath on exertion. She is nontoxic-appearing. Onset: The symptoms/episode began/occurred gradually, 1 week(s) ago. Severity of symptoms: At their worst the symptoms were mild moderate just prior to arrival, in the emergency department the symptoms are unchanged. The patient has not experienced similar symptoms in the past. The patient has been recently seen by a physician: the patient's primary care provider. Historical: - Allergies: 09:39 Codeine; ll1 09:39 Eliquis; ll1 09:39 PENICILLINS; ll1 09:39 Tylenol; ll1 09:39 Sulfa (Sulfonamide Antibiotics); ll1 - PMHx: 09:39 ADD/ADHD; Anxiety; Atrial Fib; CAD; cancer - skin; Cancer, Breast; CHF; Myocardial ll1 infarction; Hypertension; Pacemaker; - PSHx: 09:39 pacemaker/defib; ll1 - Immunization history:: Client reports having NOT received the Covid vaccine. - Social history:: Smoking status: Patient/guardian denies using tobacco, the patient reports quitting approximately 40 years ago. ROS: 10:25 Cardiovascular: Positive for edema. kdr 10:29 Constitutional: Negative for fever, chills, and weight loss, Eyes: Negative for injury, kdr pain, redness, and discharge, ENT: Negative for injury, pain, and discharge, Neck: Negative for injury, pain, and swelling, Cardiovascular: Negative for chest pain, palpitations, and edema, Abdomen/GI: Negative for abdominal pain, nausea, vomiting, diarrhea, and constipation, Back: Negative for injury and pain, : Negative for injury, bleeding, discharge, and swelling, MS/Extremity: Negative for injury and deformity, Skin: Negative for injury, rash, and discoloration, Neuro: Negative for headache, weakness, numbness, tingling, and seizure activity. Psych: Negative for depression, anxiety, suicide ideation, homicidal ideation, and hallucinations, Allergy/Immunology: Negative for hives, rash, and allergies, Endocrine: Negative for neck swelling, polydipsia, polyuria, polyphagia, and marked weight changes, Hematologic/Lymphatic: Negative for swollen nodes, abnormal bleeding, and unusual bruising. 10:29 Cardiovascular: Positive for edema. 10:29 Respiratory: Positive for dyspnea on exertion, shortness of breath, Negative for hemoptysis, orthopnea, pleurisy, wheezing. Exam: 10:16 ECG was reviewed by the Attending Physician. kdr 10:25 Constitutional: This is a well developed, well nourished patient who is awake, alert, kdr and in no acute distress. Head/Face: Normocephalic, atraumatic. Eyes: Pupils equal round and reactive to light, extra-ocular motions intact. Lids and lashes normal. Conjunctiva and sclera are non-icteric and not injected. Cornea within normal limits. Periorbital areas with no swelling, redness, or edema. Neck: Trachea midline, no thyromegaly or masses palpated, and no cervical lymphadenopathy. Supple, full range of motion without nuchal rigidity, or vertebral point tenderness. No Meningismus. Chest/axilla: Normal chest wall appearance and motion. Nontender with no deformity. No lesions are appreciated. Cardiovascular: Regular rate and rhythm with a normal S1 and S2. No gallops, murmurs, or rubs. Normal PMI, no JVD. No pulse deficits. Respiratory: Lungs have equal breath sounds bilaterally, clear to auscultation and percussion. No rales, rhonchi or wheezes noted. No increased work of breathing, no retractions or nasal flaring. Abdomen/GI: Soft, non-tender, with normal bowel sounds. No distension or tympany. No guarding or rebound. No evidence of tenderness throughout. Back: No spinal tenderness. No costovertebral tenderness. Full range of motion. Skin: Warm, dry with normal turgor. Normal color with no rashes, no lesions, and no evidence of cellulitis. MS/ Extremity: Pulses equal, no cyanosis. Neurovascular intact. Full, normal range of motion. Neuro: Awake and alert, GCS 15, oriented to person, place, time, and situation. Cranial nerves II-XII grossly intact. Motor strength 5/5 in all extremities. Sensory grossly intact. Cerebellar exam normal. Normal gait. Psych: Awake, alert, with orientation to person, place and time. Behavior, mood, and affect are within normal limits. 10:25 Cardiovascular: Edema: 2+ edema to level of left knee, left midcalf, left ankle, left foot, left toes, right knee, right midcalf, right ankle, right foot and right toes. Vital Signs: 09:35 BP 159 / 81; Pulse 88; Resp 18; Temp 98.3; Pulse Ox 99% ; Weight 53.98 kg; Height 5 ft. ll1 2 in. (157.48 cm); Pain 9/10; 12:01 BP 106 / 76; Pulse 79; Resp 16; Pulse Ox 98% ; Pain 0/10; cb5 13:00 BP 108 / 77; Pulse 87; Resp 16; Pulse Ox 98% ; Pain 0/10; cb5 13:39 BP 124 / 84; Pulse 88; Resp 16; Pulse Ox 98% ; Pain 0/10; cb5 13:39 BP 101 / 78; Pulse 88; Resp 16; Pulse Ox 98% ; Pain 0/10; cb5 14:15 BP 82 / 51; Pulse 77; Resp 16; Pulse Ox 98% ; Pain 2/10; cb5 15:26 BP 106 / 70; Pulse 78; Resp 16; Pulse Ox 98% ; Pain 0/10; cb5 09:35 Body Mass Index 21.77 (53.98 kg, 157.48 cm) ll1 MDM: 10:17 Data reviewed: vital signs, nurses notes, lab test result(s), EKG, radiologic studies. kdr 11:03 Patient medically screened. kdr 11/10 09:47 Order name: Basic Metabolic Panel; Complete Time: 12:24 kdr 11/10 09:47 Order name: CBC with Diff; Complete Time: 12:24 kdr 11/10 09:47 Order name: NT PRO-BNP; Complete Time: 12:24 kdr 11/10 09:47 Order name: Troponin HS; Complete Time: 12:24 kdr 11/10 11:05 Order name: COVID-19 SARS RT PCR (Document "Date of Onset" if Symptomatic); Complete ss Time: 12:45 11/10 09:47 Order name: XRAY Chest (1 view); Complete Time: 12:24 kdr 11/10 15:35 Order name: Echo with Doppler EDMS 11/10 15:35 Order name: Basic Metabolic Panel EDMS 11/10 15:35 Order name: Basic Metabolic Panel EDMS 11/10 15:35 Order name: CBC with Automated Diff EDMS 11/10 15:35 Order name: CBC with Automated Diff EDMS 11/10 09:47 Order name: EKG; Complete Time: 09:48 kdr 11/10 09:47 Order name: Cardiac monitoring; Complete Time: 10:03 kdr 11/10 09:47 Order name: EKG - Nurse/Tech; Complete Time: 10:03 kdr 11/10 09:47 Order name: IV Saline Lock; Complete Time: 13:42 kdr 11/10 09:47 Order name: Labs collected and sent; Complete Time: 10:34 kdr 11/10 12:22 Order name: Diet Heart Healthy; Complete Time: 12:23 em1 11/10 15:35 Order name: CONS Physician Consult EDMS EC:16 Rate is 83 beats/min. Rhythm is regular, Paced with No ectopy. QRS [place]ra[place] is Normal. MT kdr interval is normal. QRS interval is normal. QT interval is normal. Clinical impression: Paced rhythm. Administered Medications: 12:01 Drug: Lasix (furosemide) 80 mg {Note: administered 40mg, other 40mg held due to cb5 systolic BP.} Route: IVP; Site: left antecubital; 13:00 Drug: XANax (alprazolam) Tablet 2 mg {Note: V.O. 1mg now hold second dose.} Route: PO; cb5 14:28 Drug: NS 0.9% 500 ml Route: IV; Rate: bolus; Site: left antecubital; cb5 Disposition Summary: 11/10/21 11:03 Hospitalization Ordered Hospitalization Status: Inpatient Admission kdr Location: Telemetry/MedSurg (Inpatient) kdr Condition: Fair kdr Problem: new kdr Symptoms: have improved kdr Bed/Room Type: Standard kdr Provider: Ethel Jacques(11/10/21 12:45) kdr Room Assignment: 220(11/10/21 16:35) dw Diagnosis - Unspecified combined systolic (congestive) and diastolic (congestive) heart failure kdr Forms: - Medication Reconciliation Form kdr - SBAR form kdr Signatures: Dispatcher [employer] EDPaula Tidwell RN RN dw Rittger, Kevin, MD MD kdr Lewis, Lynsay, RN RN ll1 Karon Hansen RN RN cb5 Corrections: (The following items were deleted from the chart) 10: 10:17 Constitutional: This is a well developed, well nourished patient who is awake, kdr alert, and in no acute distress. Head/Face: Normocephalic, atraumatic. Eyes: Pupils equal round and reactive to light, extra-ocular motions intact. Lids and lashes normal. Conjunctiva and sclera are non-icteric and not injected. Cornea within normal limits. Periorbital areas with no swelling, redness, or edema. Neck: Trachea midline, no thyromegaly or masses palpated, and no cervical lymphadenopathy. Supple, full range of motion without nuchal rigidity, or vertebral point tenderness. No Meningismus. Cardiovascular: Regular rate and rhythm with a normal S1 and S2. No gallops, murmurs, or rubs. Normal PMI, no JVD. No pulse deficits. Abdomen/GI: Soft, non-tender, with normal bowel sounds. No distension or tympany. No guarding or rebound. No evidence of tenderness throughout. Back: No spinal tenderness. No costovertebral tenderness. Full range of motion. Skin: Warm, dry with normal turgor. Normal color with no rashes, no lesions, and no evidence of cellulitis. MS/ Extremity: Pulses equal, no cyanosis. Neurovascular intact. Full, normal range of motion. Neuro: Awake and alert, GCS 15, oriented to person, place, time, and situation. Cranial nerves II-XII grossly intact. Motor strength 5/5 in all extremities. Sensory grossly intact. Cerebellar exam normal. Normal gait. Psych: Awake, alert, with orientation to person, place and time. Behavior, mood, and affect are within normal limits. kdr 10:25 10:17 Chest/axilla: Inspection: normal, Palpation: tenderness, that is mild, of the kdr left breast, kdr 10:25 10:17 Constitutional: Negative for fever, chills, and weight loss, Eyes: Negative for kdr injury, pain, redness, and discharge, ENT: Negative for injury, pain, and discharge, Neck: Negative for injury, pain, and swelling, Respiratory: Negative for shortness of breath, cough, wheezing, and pleuritic chest pain, Abdomen/GI: Negative for abdominal pain, nausea, vomiting, diarrhea, and constipation, Back: Negative for injury and pain, : Negative for injury, bleeding, discharge, and swelling, MS/Extremity: Negative for injury and deformity, Skin: Negative for injury, rash, and discoloration, Neuro: Negative for headache, weakness, numbness, tingling, and seizure activity. Psych: Negative for depression, anxiety, suicide ideation, homicidal ideation, and hallucinations, Allergy/Immunology: Negative for hives, rash, and allergies, Endocrine: Negative for neck swelling, polydipsia, polyuria, polyphagia, and marked weight changes, Hematologic/Lymphatic: Negative for swollen nodes, abnormal bleeding, and unusual bruising, [facility] 10:25 10:17 Cardiovascular: Positive for chest pain, with cough, with movement, of the left [facility] breast, Negative for edema, orthopnea, palpitations, paroxysmal nocturnal dyspnea, kdr 10:25 10:17 Respiratory: Positive for cough, "sounds productive", Negative for pleurisy, kdr shortness of breath, sputum production, wheezing, kdr 10:29 10:17 The patient or guardian reports chest pain that is located primarily in the [facility] anterior chest wall, left, kdr 10:29 10:17 Onset: suddenly, yesterday, kdr kdr 10:29 10:17 The pain does not radiate. kdr kdr 10:29 10:17 Associated signs and symptoms: The patient has no apparent associated signs or [facility] symptoms, [facility] 10:29 10:17 The chest pain is described as sharp, stabbing, kdr kdr 10:29 10:17 Duration: The patient or guardian reports multiple episodes, that are kdr intermittent, She has the pain when she coughs., [facility] 10:29 10:17 Modifying factors: The symptoms are alleviated by Not coughing. kdr kdr 10:29 10:17 Severity of pain: At its worst the pain was moderate just prior to arrival, in kdr the emergency department the pain is unchanged kdr 10:29 10:17 The patient has not experienced similar symptoms in the past, kdr kdr 10:29 10:17 The patient has not recently seen a physician, kdr kdr 10: 10:17 The patient was in the lab getting her blood drawn when she began to have pain. kdr She was then brought to the ED. She states however that she was having pain since yesterday. The pain is specifically related to coughing. Further the pain is reproducible when I press on her inferior rib margin. kdr 10: 10:25 Constitutional: Negative for fever, chills, and weight loss, Eyes: Negative for kdr injury, pain, redness, and discharge, ENT: Negative for injury, pain, and discharge, Neck: Negative for injury, pain, and swelling, Cardiovascular: Negative for chest pain, palpitations, and edema, Abdomen/GI: Negative for abdominal pain, nausea, vomiting, diarrhea, and constipation, Back: Negative for injury and pain, : Negative for injury, bleeding, discharge, and swelling, Skin: Negative for injury, rash, and discoloration, Neuro: Negative for headache, weakness, numbness, tingling, and seizure activity. Psych: Negative for depression, anxiety, suicide ideation, homicidal ideation, and hallucinations, Allergy/Immunology: Negative for hives, rash, and allergies, Endocrine: Negative for neck swelling, polydipsia, polyuria, polyphagia, and marked weight changes, Hematologic/Lymphatic: Negative for swollen nodes, abnormal bleeding, and unusual bruising, kdr 10: 10:25 Respiratory: Positive for dyspnea on exertion, shortness of breath, Negative for kdr cough, hemoptysis, orthopnea, pleurisy, sputum production, wheezing, kdr 11:27 10:47 CBC Smear Scan ordered. EDMS EDMS 12:45 11:03 Rodney Garber kdr kdr 16:35 11:03 kdr dw
--- NOTE | 2021-11-10 11:04 | ER ---
Nurse's Notes [facility] Name: Lise Loera Age: 61 yrs Sex: Female : 1960 Arrival Date: 11/10/2021 Time: 09:28 Bed 25 Private MD: Diagnosis: Unspecified combined systolic (congestive) and diastolic (congestive) heart failure Presentation: 11/10 09:35 Chief complaint: Patient states: Feet and body swelling for a few weeks. Sent in for ll1 eval by her cage maker machine, Dr. Diaz. Taking meds as prescribed. Coronavirus screen: Vaccine status: Patient reports being unvaccinated. Client denies travel out of the [place] in the last 14 days. At this time, the client does not indicate any symptoms associated with coronavirus-19. Ebola Screen: Patient denies travel to an Ebola-affected area in the 21 days before illness onset. Initial Sepsis Screen: Does the patient meet any 2 criteria? No. Patient's initial sepsis screen is negative. Does the patient have a suspected source of infection? No. Patient's initial sepsis screen is negative. Risk Assessment: Do you want to hurt yourself or someone else? Patient reports no desire to harm self or others. Onset of symptoms was October 11, 2021. 09:35 Method Of Arrival: Ambulatory ll1 09:35 Acuity: ESTRELLITA 3 ll1 Triage Assessment: 09:40 General: Appears in no apparent distress. Behavior is calm, cooperative, appropriate ll1 for age. Pain: Complains of pain in legs Quality of pain is described as aching. Musculoskeletal: Reports swelling to body. Historical: - Allergies: 09:39 Codeine; ll1 09:39 Eliquis; ll1 09:39 PENICILLINS; ll1 09:39 Tylenol; ll1 09:39 Sulfa (Sulfonamide Antibiotics); ll1 - PMHx: 09:39 ADD/ADHD; Anxiety; Atrial Fib; CAD; cancer - skin; Cancer, Breast; CHF; Myocardial ll1 infarction; Hypertension; Pacemaker; - PSHx: 09:39 pacemaker/defib; ll1 - Immunization history:: Client reports having NOT received the Covid vaccine. - Social history:: Smoking status: Patient/guardian denies using tobacco, the patient reports quitting approximately 40 years ago. Screenin:43 Abuse screen: Denies threats or abuse. Denies injuries from another. Nutritional cb5 screening: No deficits noted. Tuberculosis screening: No symptoms or risk factors identified. Assessment: 09:43 General: Appears in no apparent distress. uncomfortable, Behavior is calm, cooperative, cb5 appropriate for age. Pain: Denies pain. Neuro: Level of Consciousness is awake, alert, obeys commands, Oriented to person, place, time, situation, Appropriate for age. Cardiovascular: Reports swelling in susan legs. Respiratory: No deficits noted. GI: No deficits noted. : No deficits noted. EENT: No deficits noted. Derm: No deficits noted. Musculoskeletal: No deficits noted. 10:44 General: Three nurses attempted P.I.V placement without. Charging Operator attempting I.V cb5 placement now.. 12:01 General: nurse was able to place P.I.V using Ultrasound machine.. cb5 12:02 Reassessment: Patient and/or family updated on plan of care and expected duration. Pain cb5 level reassessed. 12:11 General: informed M.D didn't give second dose of lasix 40mg pts BP 106/76, M.D said cb5 hold lasix 40mg. 12:14 Reassessment: Patient and/or family updated on plan of care and expected duration. Pain cb5 level reassessed. 12:15 General: pt stated "I want my lasix, I odn;t care you can't givie it to me due to my cb5 low blood pressure" Educated patient as to how lasix works, and why only 40mg was administered per M.D. order. Pt upset with nurse for telling M.D. blood pressure was low.. 12:30 General: pt stated "where is the doctor? I am going to fire him" . cb5 13:49 Reassessment: Patient and/or family updated on plan of care and expected duration. Pain cb5 level reassessed. 13:55 General:. cb5 13:58 General: Administered xanax 1mg per M.D. cb5 14:15 General: reported to M.D.pts BP is 82/51 see new orders. cb5 15:00 General: pt refused NS 500ml bolus. cb5 15:17 General: pt in no distress at this time, on phone laughing, smiling, denies pain. cb5 15:27 Reassessment: Patient and/or family updated on plan of care and expected duration. Pain cb5 level reassessed. 16:08 General: pt removed herself from hall monitor. Informed patient the importance of cb5 remaining on monitor to assess vital signs, includng blood pressure, pt stated "I don't need the monitor.". 16:38 General: Informed patient her room is ready. Pt stated "I don't care, just don't put me cb5 back on that blood pressure thing.". 16:50 General: called report to DAMASO Correia. cb5 Vital Signs: 09:35 BP 159 / 81; Pulse 88; Resp 18; Temp 98.3; Pulse Ox 99% ; Weight 53.98 kg; Height 5 ft. ll1 2 in. (157.48 cm); Pain 9/10; 12:01 BP 106 / 76; Pulse 79; Resp 16; Pulse Ox 98% ; Pain 0/10; cb5 13:00 BP 108 / 77; Pulse 87; Resp 16; Pulse Ox 98% ; Pain 0/10; cb5 13:39 BP 124 / 84; Pulse 88; Resp 16; Pulse Ox 98% ; Pain 0/10; cb5 13:39 BP 101 / 78; Pulse 88; Resp 16; Pulse Ox 98% ; Pain 0/10; cb5 14:15 BP 82 / 51; Pulse 77; Resp 16; Pulse Ox 98% ; Pain 2/10; cb5 15:26 BP 106 / 70; Pulse 78; Resp 16; Pulse Ox 98% ; Pain 0/10; cb5 09:35 Body Mass Index 21.77 (53.98 kg, 157.48 cm) ll1 ED Course: 09:28 Patient arrived in ED. ll1 09:29 Mo Vanessa MD is Attending Physician. kdr 09:39 Triage completed. ll1 09:40 Arm band placed on. ll1 09:40 Patient placed in an exam room, on a stretcher. ll1 09:42 Karon Hansen, DAMASO is Primary Nurse. cb5 09:44 Call light in reach. Side rails up X 1. cb5 09:44 No provider procedures requiring assistance completed. cb5 09:57 X-ray completed. Portable x-ray completed in exam room. Patient tolerated procedure mh1 well. 10:00 XRAY Chest (1 view) In Process Unspecified. EDMS 11:00 Missed attempt(s): 22 gauge in left upper arm. Bleeding controlled, band aid applied, ll1 catheter tip intact. 11:02 Missed attempt(s): 22 gauge in left forearm. Bleeding controlled, band aid applied, ll1 catheter tip intact. 11:03 Rodney Garber is Hospitalizing Provider. kdr 11:20 Lab(s) recollected, by me, sent to lab. Missed attempt(s): 24 gauge in left forearm. dh3 Bleeding controlled, band aid applied, catheter tip intact. 11:58 Primary Nurse role handed off by Karon Hansen, DAMASO 11:58 Karon Hansen, RN is Primary Nurse. cb5 12:45 Ethel Jacques MD is Hospitalizing Provider. kdr Administered Medications: 12:01 Drug: Lasix (furosemide) 80 mg {Note: administered 40mg, other 40mg held due to cb5 systolic BP.} Route: IVP; Site: left antecubital; 13:00 Drug: XANax (alprazolam) Tablet 2 mg {Note: V.O. 1mg now hold second dose.} Route: PO; cb5 14:28 Drug: NS 0.9% 500 ml Route: IV; Rate: bolus; Site: left antecubital; cb5 Outcome: 11:03 Decision to Hospitalize by Provider. kdr 11:57 Patient left the ED. cb5 17:03 Patient left the ED. cb5 Signatures: Dispatcher [employer] EDMS Mo Vanessa MD MD [facility] Sigrid Jones 1 Erika Carvajal, DAMASO RN Alcira Juarez 3 Tushar Luis RN RN ll1 Karon Hansen, RN RN cb5 Corrections: (The following items were deleted from the chart) 12:13 12:01 Lasix (furosemide) 80 mg IVP in left antecubital cb5 cb5 16:48 15:26 BP 106 / 70; Pulse 16bpm; Resp 16bpm; Pulse Ox 98%; Pain 0/10; cb5 cb5
[2021-11-10 11:22] LABS: Hematocrit 38.1 % (36.0-45.0); RBC Red Blood Cell Count 4.17 M/uL (3.86-4.86)
[2021-11-10 11:24] LABS: MPV 8.9 fL (7.6-11.3)
[2021-11-10 11:26] LABS: Lymphocytes % 9.7 % (15.3-44.8)
[2021-11-10 11:37] LABS: Potassium 3.7 mmol/L (3.5-5.1)
[2021-11-10] MEDS ORDERED: ALPRAZOLAM 1 MG TABLET ONE ×2 (12:49→14:06)
[2021-11-10] MEDS ORDERED: FUROSEMIDE 40 MG/4 ML VIAL ONE (12:54)
[2021-11-10] MEDS ORDERED: NA CHLORIDE 0.9% 500 ML ONE (14:28)
[2021-11-10] MEDS ORDERED: MORPHINE 4 MG/ML SYR IV PRN (15:30)
[2021-11-10] MEDS ORDERED: ACETAMINOPHEN 500 MG TAB PO PRN (15:30)
[2021-11-10] MEDS ORDERED: ALBUMIN HUMAN 25% 50 ML IV ONE (16:53)
[2021-11-10] MEDS ORDERED: WATER FOR INJ,STERILE 10 ML IM PRN (16:53)
[2021-11-10] MEDS ORDERED: ZIPRASIDONE MESYLA 20 MG/VIAL IM PRN (16:53)
[2021-11-10] MEDS ORDERED: FUROSEMIDE 40 MG/4 ML VIAL IV SCH (17:00)
[2021-11-10 17:16] VITALS: O2SAT 98
[2021-11-10 17:21] VITALS: BMI 23.3
[2021-11-10] MEDS ORDERED: FENTANYL CITR 100 MCG/2 ML IV PRN (18:11)
[2021-11-10] MEDS: ALBUMIN HUMAN 25% 12.5 GM, FUROSEMIDE 100 MG in NA CHLORIDE 0.9% 40 ML IV SCH (19:00)
[2021-11-10] MEDS ORDERED: METOPROLOL TAR 25 MG TAB PO SCH (21:00)
[2021-11-10] MEDS ORDERED: QUETIAPINE 25 MG TAB PO SCH (21:00)
[2021-11-11] MEDS: ALBUMIN HUMAN 25% 12.5 GM, FUROSEMIDE 100 MG in NA CHLORIDE 0.9% 40 ML IV SCH ×2 (00:47→05:00)
[2021-11-11 05:52] VITALS: BP 97/59
[2021-11-11 06:18] LABS: Absolute Lymphocytes (CBC) 0.8 K/uL (0.7-4.9); Hematocrit 32.3 % (36.0-45.0); MPV 9.3 fL (7.6-11.3); RBC Red Blood Cell Count 3.62 M/uL (3.86-4.86)
[2021-11-11 06:44] LABS: Potassium 4.1 mmol/L (3.5-5.1)
[2021-11-11] MEDS ORDERED: NA CHLORIDE 0.9% 0 ML ONE (08:09)
[2021-11-11] MEDS ORDERED: ALBUMIN HUMAN 25% 0 ML IV ONE ×2 (08:09)
[2021-11-11 08:16] VITALS: TEMP 97.4
[2021-11-11] MEDS ORDERED: LEVOTHYROXINE SOD 0.025 MG TAB PO SCH (09:00)
[2021-11-11] MEDS ORDERED: AMIODARONE HCL 200 MG TAB PO SCH (09:00)
[2021-11-11] MEDS ORDERED: ASPIRIN EC 81 MG TAB PO SCH ×2 (09:00)
[2021-11-11] MEDS ORDERED: ENOXAPARIN 30 MG/0.3 ML SQ SCH (09:00)
--- NOTE | 2021-11-11 10:14 | P.DS ---
Discharge Date: 11/11/21 Disposition: ROUTINE DISCHARGE Discharge Condition: GOOD Consultations: Cardiology Brief History of Present Illness: Patient is a 61-year-old female who came to the hospital with shortness of breath. Patient was also having intractable nausea and vomiting. Patient had significant edema in the lower extremity as well as the face. Patient was having some respiratory distress and decided to come into the emergency room for further evaluation. In the emergency room she was found to be volume overloaded. Decision was made to admit her to the hospital for further treatment. Hospital Course: Patient's weight has decreased significantly since arrival. She has been urinating quite extensively. Patient is clinically wanting to go home and she has stable for discharge with outpatient follow-up. Vital Signs/Physical Exam: Temp Pulse Resp BP Pulse Ox 97.4 F 85 18 97/59 L 90 L 11/11/21 04:00 11/11/21 05:00 11/11/21 04:00 11/11/21 05:00 11/11/21 04:00 General: Alert, In no apparent distress, Oriented x3 Laboratory Data at Discharge: WBC 4.20 K/uL (4.3-10.9) L D 11/11/21 05:19 Hgb 10.5 g/dL (12.0-15.0) L 11/11/21 05:19 Hct 32.3 % (36.0-45.0) L D 11/11/21 05:19 Plt Count 178 K/uL (152-406) 11/11/21 05:19 Sodium 138 mmol/L (136-145) 11/11/21 05:19 Potassium 4.1 mmol/L (3.5-5.1) 11/11/21 05:19 BUN 23 mg/dL (7-18) H 11/11/21 05:19 Creatinine 2.21 mg/dL (0.55-1.3) H 11/11/21 05:19 Glucose 100 mg/dL (74-106) 11/11/21 05:19 Home Medications: ALPRAZolam [Alprazolam] 1 tab PO TID 12/14/18 Amiodarone HCl [Cordarone*] 1 tab PO DAILY 12/14/18 Aspirin [Adult Low Dose Aspirin EC] 2 tab PO DAILY 12/14/18 Furosemide 3 tab PO BID 12/14/18 Potassium Chloride 1 tab PO DAILY 12/14/18 Sacubitril/Valsartan [Entresto 24 mg-26 mg Tablet] 1 each PO BID 03/11/19 Physician Discharge Instructions: -DC IV and DC home -Follow-up with PCP in 1 to 2 weeks -Follow-up with Cardiology in 1 to 2 weeks -Please call Dr. Jacques at [phone] if any questions regarding hospital stay -Please call nursing station at [phone] if any nursing or medication questions -Return to the emergency room if symptoms worsen -Advise repeat lab work in 1 week Diet: AHA Activity: Fall precautions Followup: Andrzej Treviño MD [Primary Care Provider] - 1-2 Weeks (call for apointment.) Time spent managing pt's care (in minutes): 35
--- NOTE | 2021-11-11 10:15 | P.HP ---
Certification for Inpatient Patient admitted to: Observation With expected LOS: <2 Midnights Patient will require the following post-hospital care: None Practitioner: I am a practitioner with admitting privileges, knowledge of patient current condition, hospital course, and medical plan of care. Services: Services provided to patient in accordance with Admission requirements found in Title 42 Section 412.3 of the Code of Federal Regulations Patient History Date of Service: 11/10/21 Reason for admission: Shortness of breath History of Present Illness: Patient is a 61-year-old female who came to the hospital with shortness of breath. Patient was also having intractable nausea and vomiting. Patient had significant edema in the lower extremity as well as the face. Patient was having some respiratory distress and decided to come into the emergency room for further evaluation. In the emergency room she was found to be volume overloaded. Patient has a history of cardiomyopathy with an ejection fraction of 20 to 25%. Decision was made to admit her to the hospital for further treatment. Allergies Penicillins Allergy (Intermediate, Verified 12/14/18 03:10) Hives/Rash codeine Allergy (Verified 12/14/18 03:10) Unknown Home Medications: ALPRAZolam [Alprazolam] 1 tab PO TID 12/14/18 Amiodarone HCl [Cordarone*] 1 tab PO DAILY 12/14/18 Aspirin [Adult Low Dose Aspirin EC] 2 tab PO DAILY 12/14/18 Furosemide 3 tab PO BID 12/14/18 Potassium Chloride 1 tab PO DAILY 12/14/18 Sacubitril/Valsartan [Entresto 24 mg-26 mg Tablet] 1 each PO BID 03/11/19 - Past Medical/Surgical History Diabetic: No -: Chronic anxiety -: Atrial fibrillation, not on chronic anti coagulation therapy -: CAD -: History pacemaker/defibrillator -: History of breast cancer -: CHF, systolic dysfunction -: cholecystectomy -: pacemaker/ defib -: R breast surg Psychosocial/ Personal History: Patient is single. She has 2 children - Family History Father Medical History: Heart disease - Social History Smoking Status: Current some day smoker Alcohol use: No CD- Drugs: No Caffeine use: No Review of Systems 10-point ROS is otherwise unremarkable Physical Examination - Vital Signs Temperature: 97.4 F Blood Pressure: 97/59 Pulse: 85 Respirations: 18 Pulse Ox (%): 90 - Physical Exam General: Alert, In no apparent distress, Oriented x3 HEENT: Atraumatic, PERRLA, Mucous membr. moist/pink, EOMI, Sclerae nonicteric Neck: Supple, 2+ carotid pulse no bruit, No LAD, Without JVD or thyroid abnormality Respiratory: Crackles/rales Cardiovascular: Regular rate/rhythm, Normal S1 S2, Systolic murmur Gastrointestinal: Normal bowel sounds, No tenderness Musculoskeletal: No tenderness Integumentary: No rashes Neurological: Normal gait, Normal speech, Normal strength at 5/5 x4 extr, Normal tone, Normal affect Lymphatics: No axilla or inguinal lymphadenopathy - Studies Laboratory Data (last 24 hrs) 11/10/21 11:10: Sodium 137, Potassium 3.7, BUN 20 H, Creatinine 1.64 H, Glucose 98 11/10/21 10:30: WBC 5.30, Hgb 12.1, Hct 38.1, Plt Count 215 D Assessment & Plan - Problems (Diagnosis) (1) CHF exacerbation Current Visit: No Status: Chronic Qualifiers: Heart failure type: diastolic Qualified Code(s): I50.33 - Acute on chronic diastolic (congestive) heart failure - Plan PLAN: 1. Echocardiogram if it has not been performed in the last 6 months 2. We will start patient on an JUDY inhibitor or an ARB 3. We will start patient on a Beta jessica 4. Cardiology consultation 5. Aggressive diuresis 6. Strict I's and O's 7. Repeat CXR 8. Daily weights 9. Education regarding diet and treatment of congestive heart failure Discharge Plan: Home Plan to discharge in: Greater than 2 days - Advance Directives Does patient have a Living Will: No Does patient have a Durable POA for Healthcare: No - Code Status/Comfort Care Code Status Assessed: Yes Code Status: Full Code Critical Care: No Time Spent Managing PTS Care (In Minutes): 45
--- NOTE | 2021-11-11 12:36 | ECHO ---
HEIGHT: 5 ft 1 in WEIGHT: 108 lb 4.8 oz DATE OF STUDY: 11/11/[address]: Ethel Jacques MD 2-DIMENSIONAL: YES M.MODE: YES DOPPLER: YES COLOR FLOW: YES TDS: NO PORTABLE: NO DEFINITY: NO BUBBLE STUDY: NO DIAGNOSIS: LEFT VENTRICULAR HYPERTROPHY CARDIAC HISTORY: CATHERIZATION: NO SURGERY: NO PROSTHETIC VALVE: NO PACEMAKER: YES MEASUREMENTS (cm) DIASTOLIC (NORMALS) SYSTOLIC (NORMALS) IVSd 0.7 (0.6-1.2) LA Diam 3.7 (1.9-4.0) LVEF 20% LVIDd 6.3 (3.5-5.7) LVIDs 5.7 (2.0-3.5) %FS 9% LVPWd 1.1 (0.6-1.2) Ao Diam 2.5 (2.0-3.7) 2 DIMENSIONAL ASSESSMENT: RIGHT ATRIUM: NORMAL LEFT ATRIUM: ENLARGED RIGHT VENTRICLE: PACEMAKER LEAD, NORMAL FUNCTION LEFT VENTRICLE: SEVERELY DEPRESED TRICUSPID VALVE: SEVERE TRICUSPID REGURGITATION MITRAL VALVE: MILD MITRAL TO MODERATE MITRAL REGURGITATION PULMONIC VALVE: MILD PULMONIC INSUFFICIENCY AORTIC VALVE: NORMAL PERICARDIAL EFFUSION: NONE AORTIC ROOT: NORMAL LEFT VENTRICULAR WALL MOTION: SEVERE GLOBAL HYPOKINESIS. DOPPLER/COLOR FLOW: SEE BELOW. COMMENTS: SEVERELY DEPRESSED LEFT VENTRICULAR EJECTION FRACTION 15-20%. SEVERELY DILATED LEFT VENTRICLE. SEVERE TRICUSPID REGURGITATION, MODERATE MITRAL REGURGITATION. SEVERE PULMONARY HYPERTENSION WITH RIGHT VENTRICULAR SYSOTLIC PRESSURE GREATER THAN 60mmHg. TECHNOLOGIST: DIONICIO ROSARIO
== END 2021-11-11 10:55 | disposition home or self-care (01) ==
LOC: ER 09:25 → ERHOLD 15:30 → 2ND 16:52
PROVIDERS: ADMIT Hospitalist; ATTEND Hospitalist
DX: I50.33 Acute on chronic diastolic (congestive) heart failure (principal); I48.91 Unspecified atrial fibrillation; R11.2 Nausea with vomiting, unspecified; F41.9 Anxiety disorder, unspecified; I25.10 Atherosclerotic heart disease of native coronary artery without angina pectoris; I25.2 Old myocardial infarction; F90.9 Attention-deficit hyperactivity disorder, unspecified type; Z95.810 Presence of automatic (implantable) cardiac defibrillator; Z87.891 Personal history of nicotine dependence; Z79.82 Long term (current) use of aspirin; Z88.0 Allergy status to penicillin; Z88.6 Allergy status to analgesic agent; Z88.2 Allergy status to sulfonamides; Z85.3 Personal history of malignant neoplasm of breast; Z85.828 Personal history of other malignant neoplasm of skin; Z90.49 Acquired absence of other specified parts of digestive tract; Z20.822 Contact with and (suspected) exposure to COVID-19; Z82.49 Family history of ischemic heart disease and other diseases of the circulatory system
CPT/HCPCS: 93005; 93306; 85025 ×2; 80048 ×2; 36415; 84484; 83880; 71045; 96374; 99284; U0003; J1940; J3010; P9047; J7040; G0378 ×3

== ENCOUNTER 2021-12-08 17:00 | Inpatient (IN) | payer OTHER ==
--- OUTSIDE RECORDS SUMMARY | 2021-12-08 17:05 | XMS REPORT | Continuity of Care Document ---
:1960 Author Organization [facility] t Address [address] [place] [address] Care Team Providers Name Role Phone Mirza [...] Expiration Date S brianna MEDICARE PART A [id number] 2010 \\T\\ B 00:00:00 Problems Condition Condition [...] Quantity Comments Source Exposure to Not sure [facility] SARS-CoV-2 (event) Medica l Branch Tobacco use and 2017-12-14 2017-12-14 Never used [facility] exposure 00:00:00 00:00:00 [facility] Sex Ass[birth year] At [birth year] [facility] 00:00:00 00:00:00 [facility] Smoking Status Start Date Stop Date Source Former smoker 2017-12-14 00:00:00 2017-12-14 00:00:00 [facility] Medications Ordered Filled Start Stop Current Ordering Indication Dosage Frequency Signature Comments Components Source Medication Medication Date Date Medication? Clinician (SIG) Name Name ondansetron 2021- No 4mg 4 mg, Slow Univers (ZOFRAN 3 03-06 IV Push, ity of (PF)) 21:00: 20:04 ONCE, 1 [place] injection 4 00 :00 dose, On Medi rosie mg [place] 10/23/21 Branch at 1500, LARISSA morpHINE 2021-2021- No 4mg 4 mg, Slow Un jennifer injection 4 10-23 03-06 IV Push, ity of mg 21:00: 20:04 ONCE, 1 [place] 00 :00 dose, On [facility] 10/23/21 Branch at 1500, STAT polyethylen Yes [id number] 1{packe Take 1 Univers e glycol 3-06 t} Packet by ity of 3350 00:00: mouth [place] (MIRALAX) 00 every 24 Medica l 17 gram (twenty-fo Branch powder ur) hours as needed for Constipati on. polyethylen Yes [id number] 1{packe Take 1 Univers e glycol 3-06 t} Packet by ity of 3350 00:00: mouth [place] (MIRALAX) 00 every 24 Medica l 17 gram (twenty-fo Branch powder ur) hours as needed for Constipati on. ondansetron 2021- No 4mg 4 mg, Slow Univers (ZOFRAN 10-16 IV Push, ity of (PF)) 17:45: 16:46 ONCE, 1 [place] injection 4 00 :00 dose, On Medi rosie mg [facility] 10/16/21 at 1145, LARISSA morpHINE 2021- No 4mg 4 mg, Slow Un jennifer injection 4 10-16 IV Push, ity of mg 17:45: 16:48 ONCE, 1 [place] 00 :00 dose, On [facility] 10/16/21 at 1145, STAT dicyclomine 2021- Yes 20mg 20 mg, Uni vers (BENTYL) 10-16 Oral, ity of tablet 20 17:45: 17:45 ONCE, 1 [place] mg [place] :[place] dose, On [facility] 10/16/21 at 1145, Routine famotidine 2021- No 20mg 20 mg, Univ ers (PEPCID 10-16 Slow IV ity of (PF)) 16:15: 15:28 Push, [place] injection 00 :00 ONCE, 1 Medical 20 mg dose, On Branch [place] 10/16/21 at 1015, Routine iopamidol 2021- No [id number] 120mL 120 mL, Univers (ISOVUE 10-16- Intravenou ity o f 370-500 mL) 15:43: 15:42 s, ONCE, 1 [place] injection 00 :00 dose, On Medica l 120 mL [place] 10/16/21 at 1000, Routine ciprofloxac 2021-0 Yes [id number] 250mg Take 1 Univers in HCl 250 2-27 tablet by ity of mg tablet 00:00: mouth (two) Medical times Branch daily. metroNIDAZO 2021-0 Yes [id number] 500mg Take 1 Univers LE 500 mg 2-27 tablet by ity o f tablet 00:00: mouth (two) Medical times Branch daily. dicyclomine 2021-0 Yes [id number] 20mg Take 1 Univers 20 mg 2-27 tablet by ity of tablet 00:00: mouth 00 every 6 Medical (six) Branch hours as needed for Abdominal pain. ciprofloxac 2021-0 Yes [id number] 250mg Take 1 Univers in HCl 250 2-27 tablet by ity of mg tablet 00:00: mouth (two) Medical times Branch daily. metroNIDAZO 2021-0 Yes [id number] 500mg Take 1 Univers LE 500 mg 2-27 tablet by ity o f tablet 00:00: mouth (two) Medical times Branch daily. dicyclomine 2021-0 Yes [id number] 20mg Take 1 Univers 20 mg 2-27 tablet by ity of tablet 00:00: mouth [place] 00 every 6 Medical (six) Branch hours as needed for Abdominal pain. ciprofloxac 2021-0 Yes [id number] 250mg Take 1 Univers in HCl 250 2-27 tablet by ity of mg tablet 00:00: mouth (two) Medical times Branch daily. metroNIDAZO 2-0 Yes [id number] 500mg Take 1 Univers LE 500 mg 2-27 tablet by ity o f tablet 00:00: mouth 2 00 (two) Medical times Branch daily. dicyclomine 2021-0 Yes [id number] 20mg Take 1 Univers 20 mg 2-27 tablet by ity of tablet 00:00: mouth [place] [address] every 6 Medical (six) Branch hours as needed for Abdominal pain. amiodarone 2021-0 Yes 200mg Take 200 Un jennifer 200 mg 2-22 mg by ity of tablet 10:30: mouth. [address] Branch aspirin 325 2-0 Yes 325mg Take 325 U nivers mg tablet 2-22 mg by ity of 10:30: mouth. [address] amiodarone 2-0 Yes 200mg Take 200 Un jennifer 200 mg 2-22 mg by ity of tablet 10:30: mouth. [address] aspirin 325 2-0 Yes 325mg Take 325 U nivers mg tablet 2-22 mg by ity of 10:30: mouth. [address] amiodarone 2021-0 Yes 200mg Take 200 Un jennifer 200 mg 2-22 mg by ity of tablet 10:30: mouth. [address] aspirin 325 2-0 Yes 325mg Take 325 U nivers mg tablet 2-22 mg by ity of 10:30: mouth. [address] amiodarone 2021-0 Yes 200mg Take 200 Un jennifer 200 mg 2-22 mg by ity of tablet 10:30: mouth. [address] aspirin 325 2-0 Yes 325mg Take 325 U nivers mg tablet 2-22 mg by ity of 10:30: mouth. [address] spironolact 2021-0 Yes .5mg Take 0.5 Un jennifer one 25 mg 2-22 mg by ity of tablet 10:30: mouth. [address] Branch spironolact 2-0 Yes .5mg Take 0.5 Un jennifer one 25 mg 2-22 mg by ity of tablet 10:30: mouth. [address] Branch spironolact 2-0 Yes .5mg Take 0.5 Un jennifer one 25 mg 2-22 mg by ity of tablet 10:30: mouth. [address] spironolact 2-0 Yes .5mg Take 0.5 Un jennifer one 25 mg 2-22 mg by ity of tablet 10:30: mouth. [address] ALPRAZolam 2-0 Yes [id number] TAKE 1 U nivers 2 mg tablet 2-22 TABLET BY ity of 00:00: MOUTH [place] 00 THREE Medical TIMES Branch DAILY NEEDED sulfamethox 2021-0 Yes [id number] 1{tbl} Take 1 Univers azole-trime 2-22 tablet by ity of thoprim 00:00: mouth 2 [place] (BACTRIM 00 (two) Medical DS) 800-160 times Branch mg per daily. tablet ALPRAZolam 0 Yes [id number] TAKE 1 U nivers 2 mg tablet 2-22 TABLET BY ity of 00:00: MOUTH [place] 00 THREE Medical TIMES Branch DAILY NEEDED sulfamethox 2021-0 Yes [id number] 1{tbl} Take 1 Univers azole-trime 2-22 tablet by ity of thoprim 00:00: mouth 2 [place] (BACTRIM 00 (two) Medical DS) 800-160 times Branch mg per daily. tablet ALPRAZolam Yes [id number] TAKE 1 U nivers 2 mg tablet 2-22 TABLET BY ity of 00:00: MOUTH THREE Medical TIMES Branch DAILY NEEDED sulfamethox 2021-0 Yes [id number] 1{tbl} Take 1 Univers azole-trime 2-22 tablet by ity of thoprim 00:00: mouth 2 [place] (BACTRIM 00 (two) Medical DS) 800-160 times Branch mg per daily. tablet ALPRAZolam Yes [id number] TAKE 1 U nivers 2 mg tablet 2-22 TABLET BY ity of 00:00: MOUTH 00 THREE Medical TIMES Branch DAILY NEEDED sulfamethox 2021-0 Yes [id number] 1{tbl} Take 1 Univers azole-trime 2-22 tablet by ity of thoprim 00:00: mouth 2 [place] (BACTRIM 00 (two) Medical DS) 800-160 times Branch mg per daily. tablet ALPRAZolam 2020-08 Yes [id number] TAKE 1 U nivers 2 mg tablet 2-15 TABLET BY ity of 00:00: MOUTH [place] 00 THREE Medical TIMES Branch DAILY NEEDED ALPRAZolam 2020-08 Yes [id number] TAKE 1 U nivers 2 mg tablet 2-15 TABLET BY ity of 00:00: MOUTH 00 THREE Medical TIMES Branch DAILY NEEDED traMADoL 50 2020-08 Yes [id number] 50mg Take 1 Univ ers mg tablet 2-15 tablet by ity o f 00:00: mouth [place] 00 every 6 Medical (six) Branch hours as needed for Pain (scale 7-10). Indication s: acute pain ALPRAZolam 2020-08 Yes [id number] TAKE 1 U nivers 2 mg tablet 2-15 TABLET BY ity of 00:00: MOUTH [place] 00 THREE Medical TIMES Branch DAILY NEEDED traMADoL 50 2020-08 Yes [id number] 50mg Take 1 Univ ers mg tablet 2-15 tablet by ity o f 00:00: mouth [place] 00 every 6 Medical (six) Branch hours as needed for Pain (scale 7-10). Indication s: acute pain ALPRAZolam 2020-08 Yes [id number] TAKE 1 U nivers 2 mg tablet 2-15 TABLET BY ity of 00:00: MOUTH [place] 00 THREE Medical TIMES Branch DAILY NEEDED traMADoL 50 2020-08 Yes [id number] 50mg Take 1 Univ ers mg tablet 2-15 tablet by ity o f 00:00: mouth [place] 00 every 6 Medical (six) Branch hours as needed for Pain (scale 7-10). Indication s: acute pain ALPRAZolam 2020-08 Yes [id number] TAKE 1 U nivers 2 mg tablet 2-15 TABLET BY ity of 00:00: MOUTH [place] 00 THREE Medical TIMES Branch DAILY NEEDED traMADoL 50 2020-08 Yes [id number] 50mg Take 1 Univ ers mg tablet 2-15 tablet by ity o f 00:00: mouth [place] 00 every 6 Medical (six) Branch hours as needed for Pain (scale 7-10). Indication s: acute pain ALPRAZolam 2020-08 Yes [id number] TAKE 1 U nivers 2 mg tablet [...] s: acute pain ALPRAZolam 2020-0 2020- No [id number] TAKE 1 Univers 2 mg tablet 9-15 [...] mg by ity of tablet 14:32: mouth. [address] spironolact 2019- Yes .5mg Take 0.5 Un jennifer one 25 mg 0-29 mg by ity of tablet 14:32: mouth. [address] spironolact 2019- Yes .5mg Take 0.5 Un jennifer one 25 mg 0-29 mg by ity of tablet 14:32: mouth. [address] spironolact 2019- Yes .5mg Take 0.5 Un jennifer one 25 mg 0-29 mg by ity of tablet 14:32: mouth. [address] spironolact 2019- Yes .5mg Take 0.5 Un jennifer one 25 mg 0-29 mg by ity of tablet 14:32: mouth. [address] spironolact 2019- Yes .5mg Take 0.5 Un jennifer one 25 mg 0-29 mg by ity of tablet 14:32: mouth. [address] DIGOXIN 2018-0 Yes Take by Univer s ORAL 7-10 mouth. ity of 19:00: [address] ENALAPRIL 0 Yes Take by [facility] [place] [facility] ers MALEATE 7-10 mouth. ity of ORAL 19:00: [address] sacubitril- Yes Take by Un jennifer valsartan 7-10 mouth 2 ity of (ENTRESTO) 19:00: (two) [place] 24-26 mg 17 times Medical Tab daily. Branch furosemide 2018-0 Yes 80mg Take 80 mg U nivers (LASIX) 80 7-10 by mouth ity o f mg tablet 19:00: daily. [address] furosemide 2018-0 Yes 80mg Take 80 mg U nivers (LASIX) 80 7-10 by mouth ity o f mg tablet 14:00: daily. [address] DIGOXIN 2018-0 Yes Take by Univer s ORAL 7-10 mouth. ity of 14:00: [address] ENALAPRIL 2018-0 Yes Take by Univ ers MALEATE 7-10 mouth. ity of ORAL 14:00: [address] sacubitril- 2018- Yes Take by Un jennifer valsartan 7-10 mouth 2 ity of (ENTRESTO) 14:00: (two) [place] 24-26 mg 17 times Medical Tab daily. Branch furosemide 2019-0 Yes 80mg Take 80 mg U nivers (LASIX) 80 7-10 by mouth ity o f mg tablet 14:00: daily. [place] [address] Medical Branch DIGOXIN 2018-0 Yes Take by Univer s ORAL 7-10 mouth. ity of 14:00: [address] Branch ENALAPRIL 2018-0 Yes Take by Univ ers MALEATE 7-10 mouth. ity of ORAL 14:00: [address] Branch sacubitril- 0 Yes Take by Un jennifer valsartan 7-10 mouth 2 ity of (ENTRESTO) 14:00: (two) [place] 24-26 mg 17 times Medical Tab daily. Branch furosemide 2018-0 Yes 80mg Take 80 mg U nivers (LASIX) 80 7-10 by mouth ity o f mg tablet 14:00: daily. [address] DIGOXIN 2018-0 Yes Take by Univer s ORAL 7-10 mouth. ity of 14:00: [address] ENALAPRIL 2018-0 Yes Take by Univ ers MALEATE 7-10 mouth. ity of ORAL 14:00: [address] Branch sacubitril- 0 Yes Take by Un jennifer valsartan 7-10 mouth 2 ity of (ENTRESTO) 14:00: (two) [place] 24-26 mg 17 times Medical Tab daily. Branch furosemide 2018-0 Yes 80mg Take 80 mg U nivers (LASIX) 80 7-10 by mouth ity o f mg tablet 14:00: daily. [address] DIGOXIN 2018-0 Yes Take by Univer s ORAL 7-10 mouth. ity of 14:00: [address] ENALAPRIL 2018-0 Yes Take by Univ ers MALEATE 7-10 mouth. ity of ORAL 14:00: [address] Branch sacubitril- 2018-0 Yes Take by Un jennifer valsartan 7-10 mouth 2 ity of (ENTRESTO) 14:00: (two) [place] 24-26 mg 17 times Medical Tab daily. Branch furosemide 2019-0 Yes 80mg Take 80 mg U nivers (LASIX) 80 7-10 by mouth ity o f mg tablet 14:00: daily. [address] DIGOXIN 2019-0 Yes Take by Univer s ORAL 7-10 mouth. ity of 14:00: [address] ENALAPRIL 2019-0 Yes Take by Univ ers MALEATE 7-10 mouth. ity of ORAL 14:00: [address] sacubitril- 2018-0 Yes Take by Un jennifer valsartan 7-10 mouth 2 ity of (ENTRESTO) 14:00: (two) [place] 24-26 mg 17 times Medical Tab daily. Branch furosemide 2019-0 Yes 80mg Take 80 mg U nivers (LASIX) 80 7-10 by mouth ity o f mg tablet 14:00: daily. [address] DIGOXIN 2018-0 Yes Take by Univer s ORAL 7-10 mouth. ity of 14:00: [address] ENALAPRIL 2018-0 Yes Take by Univ ers MALEATE 7-10 mouth. ity of ORAL 14:00: [address] sacubitril- Yes Take by Un jennifer valsartan 7-10 mouth 2 ity of (ENTRESTO) 14:00: (two) [place] 24-26 mg 17 times Medical Tab daily. Branch furosemide 2019-0 Yes 80mg Take 80 mg U nivers (LASIX) 80 7-10 by mouth ity o f mg tablet 14:00: daily. [address] DIGOXIN 2018-0 Yes Take by [employer] [facility] ORAL 7-10 mouth. ity of 14:00: [address] ENALAPRIL 2018-0 Yes Take by Univ ers MALEATE 7-10 mouth. ity of ORAL 14:00: [address] sacubitril- 2018-0 Yes Take by Un jennifer valsartan 7-10 mouth 2 ity of (ENTRESTO) 14:00: (two) [place] 24-26 mg 17 times Medical Tab daily. Branch furosemide 2019-0 Yes 80mg Take 80 mg U nivers (LASIX) 80 7-10 by mouth ity o f mg tablet 14:00: daily. [address] DIGOXIN 2019-0 Yes Take by Univer s ORAL 7-10 mouth. ity of 14:00: [address] ENALAPRIL 2019-0 Yes Take by Univ ers MALEATE 7-10 mouth. ity of ORAL 14:00: [address] sacubitril- 2019-0 Yes Take by Un jennifer valsartan 7-10 mouth 2 ity of (ENTRESTO) 14:00: (two) [place] 24-26 mg 17 times Medical Tab daily. Branch furosemide Yes 80mg Take 80 mg U nivers (LASIX) 80 7-10 by mouth ity o f mg tablet 14:00: daily. [place] [address] Medical Branch DIGOXIN Yes Take by [employer] [facility] ORAL 7-10 mouth. ity of 14:00: [place] [address] Medical Branch ENALAPRIL Yes Take by Univ ers MALEATE 7-10 mouth. ity of ORAL 14:00: [place] [address] Medical Branch sacubitril- Yes Take by Un jennifer valsartan 7-10 mouth 2 ity of (ENTRESTO) 14:00: (two) [place] 24-26 mg 17 times Medical Tab daily. Branch furosemide Yes 80mg Take 80 mg U nivers (LASIX) 80 7-10 by mouth ity o f mg tablet 14:00: daily. [place] [address] Medical Branch DIGOXIN Yes Take by [employer] ORAL 7-10 mouth. ity of 14:00: [place] [address] Medical Branch ENALAPRIL Yes Take by Univ ers MALEATE 7-10 mouth. ity of ORAL 14:00: [address] Branch sacubitril- Yes Take by Un jennifer valsartan 7-10 mouth 2 ity of (ENTRESTO) 14:00: (two) [place] 24-26 mg 17 times Medical Tab daily. Branch dicyclomine Yes Abdominal 20mg Take 1 Univers (BENTYL) 20 5-07 pain, tablet by it y of mg tablet 00:00: unspecified mouth 4 00 abdominal (four) Medical location times Branch daily. dicyclomine Yes [id number] 20mg Take 1 Univers (BENTYL) 20 5-07 tablet by ity of mg tablet 00:00: mouth 4 [place] 00 (four) Medical times Branch daily. dicyclomine Yes [id number] 20mg Take 1 Univers (BENTYL) 20 5-07 tablet by ity of mg tablet 00:00: mouth 4 (four) Medical times Branch daily. dicyclomine Yes [id number] 20mg Take 1 Univers (BENTYL) 20 5-07 tablet by ity of mg tablet 00:00: mouth 4 00 (four) Medical times Branch daily. dicyclomine Yes [id number] 20mg Take 1 Univers (BENTYL) 20 5-07 tablet by ity of mg tablet 00:00: mouth 4 [place] 00 (four) Medical times Branch daily. dicyclomine Yes [id number] 20mg Take 1 Univers (BENTYL) 20 5-07 tablet by ity of mg tablet 00:00: mouth 4 [place] 00 (four) Medical times Branch daily. dicyclomine Yes [id number] 20mg Take 1 Univers (BENTYL) 20 5-07 tablet by ity of mg tablet 00:00: mouth 4 00 (four) Medical times Branch daily. dicyclomine Yes [id number] 20mg Take 1 Univers (BENTYL) 20 5-07 tablet by ity of mg tablet 00:00: mouth 4 00 ([facility]) Medical times Branch daily. dicyclomine 2021- No [id number] 20mg Take 1 Univers (BENTYL) 20 5-07 02-27 tablet by it y of mg tablet 00:00: 00:00 mouth 4 [place] :00 (four) Medical times Branch daily. OMEGA 3 Yes None Univers ORAL 9-21 Entered ity of 20:48: [address] OMEGA 3 Yes None Univers ORAL 9-21 Entered ity of 15:48: [address] OMEGA 3 Yes None Univers ORAL 9-21 Entered ity of 15:48: [address] OMEGA 3 Yes None Univers ORAL 9-21 Entered ity of 15:48: [address] OMEGA 3 Yes None Univers ORAL 9-21 Entered ity of 15:48: [address] OMEGA 3 Yes None Univers ORAL 9-21 Entered ity of 15:48: [address] OMEGA 3 Yes None Univers ORAL 9-21 Entered ity of 15:48: [address] OMEGA 3 Yes None Univers ORAL 9-21 Entered ity of 15:48: [address] OMEGA 3 Yes None Univers ORAL 9-21 Entered ity of 15:48: [address] OMEGA 3 2016-0 Yes None Univers ORAL 9-21 Entered ity of 15:48: [place] [address] Medical Branch OMEGA 3 2016-0 Yes None Univers ORAL 9-21 Entered ity of 15:48: [place] [address] Medical Branch Vital Signs Vital Name Observation Time Observation Value Comments Source Systolic blood 2021-10-23 20:00:00 102 mm[Hg] Univer sity of pressure [place] [facility] Diastolic blood 2021-10-23 20:00:00 69 mm[Hg] Unive rsity of pressure [place] [facility] Heart rate 2021-10-23 20:00:00 76 /min Universi ty of [place] [facility] Respiratory rate 2021-10-23 20:00:00 18 /min Univ ersity of [place] [facility] Oxygen saturation in 2021-10-23 20:00:00 94 /min University of Arterial blood by [place] [employer] Pulse oximetry Branch Body temperature 2021-10-23 16:54:00 36.44 Freya Univ ersity of [place] [facility] Body height 2021-10-23 16:54:00 157.5 cm [facility]i [facility] [place] [facility] Body weight 2021-10-23 16:54:00 55.339 kg [facility] [place] [facility] BMI 2021-10-23 16:54:00 22.31 kg/m2 [facility] [place] [facility] Systolic blood 2021-10-16 16:44:33 108 mm[Hg] Univer sity of pressure [place] [facility] Diastolic blood 2021-10-16 16:44:33 66 mm[Hg] Unive rsity of pressure [place] [facility] Heart rate 2021-10-16 16:44:33 78 /min Universi ty [facility] [place] [facility] Respiratory rate 2021-10-16 16:44:33 16 /min Univ ersity of [place] [facility] Oxygen saturation in 2021-10-16 16:44:33 96 /min University of Arterial blood by [place] [employer] rosie Pulse oximetry Branch Body temperature 2021-10-16 15:05:45 35.61 Freya Univ ersity [facility] [place] [facility] Body height 2021-10-16 14:50:00 157.5 cm [facility] [place] [facility] Body weight 2021-10-16 14:50:00 55.339 kg [facility] [place] [facility] BMI 2021-10-16 14:50:00 22.31 kg/m2 [facility] [place] [facility] Diastolic blood 2021-08-03 18:46:00 52 mm[Hg] [facility] Body weight 2021-08-03 18:46:00 56.201 kg [facility] BMI 2021-08-03 18:46:00 22.66 kg/m2 [facility] Systolic blood 2021-08-03 18:46:00 98 mm[Hg] [facility] Procedures Procedure Date / Time Performing Clinician Source Performed EXTERNAL PROVIDER 2021-11-09 05:01:00 Doctor Unassigned, No Univ [facility] RECORDS Name Medical Branch [place] ABDOMEN PELVIS WO 2021-10-23 19:22:14 Nikos Ferreira [facility] CONTRAST [facility] URINALYSIS 2021-10-23 17:30:00 Nikos Ferreira [facility] PROTHROMBIN TIME / INR 2021-10-23 17:23:00 Nikos Ferreira [facility] ACTIVATED PARTIAL 2021-10-23 17:23:00 Nikos Ferreira [facility] THRMPLAS LUIS [facility] COVID-19 (ID NOW RAPID 2021-10-23 17:23:00 Nikos Ferreira [facility] TESTING) [facility] HB ECG ROUTINE & RHYTHM 2021-10-23 17:21:17 Nikos Ferreira [facility] STRIP [facility] Branch LIPASE 2021-10-23 17:17:00 Jhon Nikos [facility] TROPONIN I 2021-10-23 17:17:00 Nikos Ferreira [facility] COMP. METABOLIC PANEL 2021-10-23 17:17:00 Nikos Ferreira [facility] ([id number]) [facility] CBC WITH DIFF 2021-10-23 17:17:00 Jhon Nikos [facility] N-TERMINAL PRO-BNP 2021-10-23 17:17:00 Nikos Ferreira [facility] CONSENT/REFUSAL FOR 2021-10-23 16:45:00 [facility] Name Medical Branch URINALYSIS 2021-10-16 16:26:00 Yuli Pyle [facility] ABDOMEN PELVIS W 2021-10-16 15:51:03 Yuli Pyle [facility] [place] CONTRAST Medical Branch LIPASE 2021-10-16 15:24:00 Yuli Pyle [facility] TROPONIN I 2021-10-16 15:24:00 Yuli Pyle [facility] COMP. METABOLIC PANEL 2021-10-16 15:24:00 Yuli Pyle [facility] [place] ([id number]) [facility] CBC WITH DIFF 2021-10-16 15:24:00 Yuli Pyle [facility] NOTICE OF PRIVACY 2021-10-16 14:46:21 Doctor Unassigned, No Univ ersity [facility] PRACTICES Name Medical Branch CONSENT/REFUSAL FOR 2021-10-16 14:45:38 [facility]igned, [facility]REAT[facility] Name [facility] XR WRIST 3+ VW RIGHT 2021-08-03 19:23:00 [facility] EXTERNAL PROVIDER 2020-12-23 05:01:00 Doctor Unassigned, No [facility] [place] REC[facility]DS Name [facility] Plan of Care Planned Activity Planned Date Details Comments Source Future Scheduled 2021-06-17 Depression screening Uni versity of Test 00:00:00 (procedure) [code = [facility] dicfl 744745412] Branch Future Scheduled 2021-02-16 INFLUENZA VACCINE Postponed from Univ ersity of Test 00:00:00 (#1) [code = 04/20/2020 [facility] INFLUENZA VACCINE (Refused) Branch (#1)] Future Scheduled 2014 Screening for University of Test 00:00:00 malignant neoplasm [place] Med ical of lung (procedure) Branch [code = 677467704] Future Scheduled 2009 Screening for occult Uni versity of Test 00:00:00 blood in feces [facility] (procedure) [code = Branch 371216902] Future Scheduled 2009 Stool DNA-based Universi ty of Test 00:00:00 colorectal cancer [place] Medi rosie screening Branch (procedure) [code = 843076017676418] Future Scheduled 2009 Flexible fiberoptic Univ ersity of Test 00:00:00 sigmoidoscopy [facility] (procedure) [code = Branch 28334192] Future Scheduled 2009 Screening for University of Test 00:00:00 malignant neoplasm [place] Med ical of colon (procedure) Branch [code = 618385563] Future Scheduled 2009 Screening for University of Test 00:00:00 malignant neoplasm [place] Med ical of colon (procedure) Branch [code = 119823312] Future Scheduled 2009 Zoster Recombinant Unive rsity of Test 00:00:00 Vaccine (SHINGRIX) [place] Med ical (1 of 2) [code = Branch Zoster Recombinant Vaccine (SHINGRIX) (1 of 2)] Future Scheduled 2009-06-07 Screening for University of Test 00:00:00 malignant neoplasm [place] Med ical of cervix Branch (procedure) [code = 757888670] Future Scheduled 2007-07-25 Screening for University of Test 00:00:00 malignant neoplasm [place] Med ical of breast Branch (procedure) [code = 951270886] Future Scheduled 1978 DTaP,Tdap,and Td Univers ity of Test 00:00:00 Vaccines (1 - Tdap) [facility] dical [code = Branch DTaP,Tdap,and Td Vaccines (1 - Tdap)] Future Scheduled 1965 PNEUMOCOCCAL 0-64 Univer sity of Test 00:00:00 YEARS COMBINED [place] [facility] SERIES (1 of 3 - Branch PCV13) [code = PNEUMOCOCCAL 0-64 YEARS COMBINED SERIES (1 of 3 - PCV13)] Encounters Start End Encounter Admission Attending Care Care Encounter Source Date/Time Date/Time Type Type Clinicians Facility Department ID 2021-11-09 2021-11-09 Outpatient R HANDY, [facility] [id number] Univers 15:20:00 15:20:00 MONTSERRAT [id number] ity o f [facility] 2021-11-09 2021-11-09 Outpatient R HANDY [facility] [id number] Univers 15:20:00 15:20:00 MON[place]ERR[place] ity o f [facility] 2021-11-09 2021-11-09 Orders Doctor CALDERON [id number] Univers 00:00:00 00:00:00 Only Unassigned, ROLANDO [id number] ity of [place] [facility] [id number] Mikey as [id number] [address] 2021-11-03 2021-11-03 Outpatient Reshma BLUE [facility] [id number] Univers 13:15:00 13:15:00 CASTRO [id number] tam [facility] 2021-11-03 2021-11-03 Outpatient Reshma BLUE [facility] [id number] Univers 13:15:00 13:15:00 CASTRO tam [facility] [place] 2021-11-02 2021-11-02 Outpatient Reshma [facility] [id number] Univers 12:00:00 12:00:00 CASTRO [id number] tam [facility] [place] 2021-11-02 2021-11-02 Outpatient Reshma [facility] [id number] Univers 12:00:00 12:00:00 CASTRO tam [facility] [place] 2021-10-23 2021-10-23 [facility] [id number] Univers 10:57:00 14:51:00 NIKOS villalta [facility] [place] 2021-10-23 2021-10-23 [facility] [id number] Univers 10:57:00 14:51:00 Nikos CASTILLO 350.1.13.10 i ty of [place] 4.2.7.2.686 [facility] [id number] [address] 2021-10-16 2021-10-16 Emergency [facility] [id number] Univers 08:57:00 11:17:00 YULI villalta [facility] [place] 2021-10-16 2021-10-16 Emergency [facility] [id number] Univers 08:57:00 11:17:00 Yuli CASTILLO 350.1.13.10 ity of [place] 4.2.7.2.686 [facility] [id number] [address] 2021-10-16 2021-10-16 Orders Doctor CALDERON [id number] Univers 00:00:00 00:00:00 Only Unassigned, ROLANDO 350.1.13.10 ity of [place] [facility] 4.2.7.2.686 Mikey as [phone] [address] 2021-10-11 2021-10-11 Outpatient Reshma [facility] [id number] Univers 10:15:00 10:43:38 CASTRO villalta [facility] [place] 2021-10-11 2021-10-11 Outpatient Reshma [facility] [id number] -[id number] Univers 10:15:00 10:15:00 CASTRO [id number] pawan [facility] [place] 2021-09-30 2021-09-30 Telephone [facility] [id number] Univers 00:00:00 00:00:00 Castro HEALTH 350.1.13.10 it y of [place] 4.2.7.2.686 Mikey as MICHAEL?BLEA [phone] [address] MEDICAL OFFICE [facility] 2021-09-20 2021-09-20 Telephone [facility] [id number] Univers 00:00:00 00:00:00 Castro [facility]ALTH 350.1.13.10 it y of [place] 4.2.7.2.686 Mikey as MICHAEL?BLEA [id number] [facility] 0[address] [facility] OFFICE [facility] 2021-08-04 2021-08-04 [place]a [facility] [id number] Univers 00:00:00 00:00:00 Castro HEALTH 350.1.13.10 it y of [place] 4.2.7.2.686 Mikey as MICHAEL?BLEA [id number] [facility] [address] [place] MEDICAL OFFICE [facility] 2021-08-03 2021-08-03 [facility] 1.2.840.114 [id number] Univers 13:09:41 23:59:00 Encounter Castro [facility] 350.1.13.10 ity of [place] 4.2.7.2.686 Mikey as MICHAEL?BLEA [phone] [facility] [address] [place] MEDICAL OFFICE [facility] 2021-08-03 2021-08-03 Outpatient Reshma [facility] [id number] Univers 12:00:00 13:12:07 CASTRO ity [facility] [place] 2021-08-032021-08-03 Office [facility] 1.2.840.114 [id number] [facility] 12:00:00 12:15:00 Visit [facility] 350.1.13.10 it y of [place] 4.2.7.2.686 Mikey as MICHAEL?BLEA [phone] Mo jaskaran [address] OFFICE BUILDING 2021-08-03 2021-08-03 Telephone [facility] [id number] Univers 00:00:00 00:00:00 [facility] 350.1.13.10 it y of [place] 4.2.7.2.686 Mikey as MICHAEL?BLEA [phone] [address] OFFICE BUILDING 2021-02-02 2021-02-02 Outpatient VICTORIA, [facility] [id number] 504 [place] 00:00:00 00:00:00 NADIM 145 Method i 2021-01-27 2021-01-27 Outpatient [facility] [id number] [address] [place] 00:00:00 00:00:00 NADIM [address] 2020-12-23 2020-12-23 Orders Doctor KVNG 1.2.840.114 [id number] 00:00:00 00:00:00 Only Unassigned, ROLANDO 350.1.13.10 [place] [facility] 4.2.7.2.686 [id number] [id number] 2020-12-04 2020-12-06 Inpatient YASIR, [facility] 064 [id number] [address] [place] 00:00:00 00:00:00 JENNIFER [address] 2020-12-05 2020-12-05 [facility] [id number] 00:00:00 00:00:00 [facility] 350.1.13.10 [place] 4.2.7.2.686 Professio [phone] [place] [address] [address] 2020-12-02 2020-12-02 Emergency [facility] [id number] 10:56:00 12:00:00 Lori Castillo 350.1.13.10 [place] 4.2.7.2.686 [place] [id number] 084 2020-12-02 2020-12-02 Urgent Provider, [facility] [id number] 07:50:30 09:40:15 Care [facility] 350.1.13.10 Care [place] 4.2.7.2.686 Professio [phone] nal 044 Office [address] 2020-12-02 2020-12-02 [facility] [id number] 00:00:00 00:00:00 [facility] 350.1.13.10 [place] 4.2.7.2.686 Professio [phone] nal [facility] Office [address] 2020-11-30 2020-11-30 [facility]phone [facility] [id number] 00:00:00 00:00:00 [facility] 350.1.13.10 [place] 4.2.7.2.686 Professio [phone] nal [facility] Office [address] 2020-11-26 2020-11-27 Emergency [facility] 1.2.840.114 [id number] 21:15:00 00:04:00 Ernestina Brito [place] 350.1.13.10 [place] 4.2.7.2.686 [place] [id number] 2020-11-27 2020-11-27 Nurse Hemalatha CALDERON 1.2.840.114 [id number] 00:00:00 00:00:00 Triage ROLANDO Ring 350.1.13.10 [facility] 4.2.7.2.686 [id number] [id number] 2020-09-22 2020-09-22 [facility]phone [facility] 1.2.000.168 [id number] 00:00:00 00:00:00 [facility] 350.1.13.10 [place] 4.2.7.2.686 Professio [phone] nal 044 Office [address] 2020-09-01 2020-09-01 Office [facility] 1.2.840.114 [id number] 12:28:02 12:43:02 Visit [facility] 350.1.13.10 [place] 4.2.7.2.686 dina [id number] nal 044 Office [address] 2020-06-29 2020-07-04 Inpatient LILLIAN AKINS [facility] [id number] [place] 00:00:00 00:00:[address] Results Test Description Test Time Test Comments Results Result Comments Source TROPONIN I 2021-10-23 18:14:02 Test Item Value Reference Range Interpretation Comme nts TROPONIN I (test code = 0.008 ng/mL See_Comment [Au tomated message] The 2207955210) system which ge nerated this result tra [...] biotin. Lab Interpretation Normal (test code = 23182-6) [facility] WITH [id number] 18:12:42 Test Item Value Reference Range Interpretation Comments WBC (test code = See_Comment [Automated 8290-2) message] The sy stem which generated this result transmitted reference range : 4.30 - 11.10 10*3/?L. The reference range was not used to interpret this result as normal/abnormal . RBC (test code = See_Comment [Automated 013-8) message] The sy stem which generated this [...] (test code = 59.7 fL 39.0-49.9 H 27833-9) RDW-CV (test code = 17.7 % 12.0-15.5 H 788-0) PLT (test code = See_Comment [Automated 777-3) message] The sy stem which generated this result transmitted reference range : 166 - 358 10*3/ ?L. The reference r sesar was not used to interpret this result as normal/abnormal . MPV (test code = 11.4 fL 9.5-12.9 21763-5) NRBC/100 WBC (test See_Comment [Automat ed code = 1295632475) message] The system which generated this result transmitted reference range : 0.0 - 10.0 /100 WBCs. The refer ence range was not u sed to interpret th is result as normal/abnormal . NRBC x10^3 (test code <0.01 See_Comment [Auto mated = 6465381046) message] The s ystem which generated this result transmitted reference range : 10*3/?L. The reference range was not used to interpret this result as normal/abnormal . GRAN MAT (NEUT) % 81.7 % (test code = 770-8) IMM GRAN % (test code 1.10 % = 8540577686) LYMPH % (test code = 7.7 % 736-9) MONO % (test code = 8.6 % 5905-5) EOS % (test code = 0.2 % 713-8) BASO % (test code = 0.7 % 706-2) GRAN MAT x10^3(ANC) 3.62 10*3/uL 1.88-7.09 (test code = 0938455377) IMM GRAN x10^3 (test 0.05 10*3/uL 0.00-0.06 code = 6794837240) LYMPH x10^3 (test code 0.34 10*3/uL 1.32-3.29 L = 731-0) MONO x10^3 (test code 0.38 10*3/uL 0.33-0.92 = 742-7) EOS x10^3 (test code = <0.03 0.03-0.39 L 711-2) BASO x10^3 (test code 0.03 10*3/uL 0.01-0.07 = 704-7) Lab Interpretation Abnormal (test code = 66443-7) [id number] 18:10:41 Test Item Value Reference Range Interpretation Comments NT-proBNP (test code 64051 pg/mL See_Comment H [Autom ated = 9800468222) message] The system which generated this result transmitted reference range : <=125. The reference range was not used to interpret this result as normal/abnormal . FLY (test code = FLY) Biotin has been reported to cause a negative bias, interpret results relative to patient's use of biotin. Lab Interpretation Abnormal (test code = 42911-5) [facility]. METABOLIC PANEL ([id number])2021-10-23 18:02:23 Test Item Value Reference Range Interpretation Comments NA (test code = 132 mmol/L 135-145 L 7422349192) K (test code = 4.4 mmol/L 3.5-5.0 9878370670) CL (test code = 101 mmol/L 98-108 4981730462) CO2 TOTAL (test code = 17 mmol/L 23-31 L 1165902337) AGAP (test code = 2-16 6315165484) BUN (test code = 22 mg/dL 7-23 3897287757) GLUCOSE (test code = 112 mg/dL 70-110 H 6578805005) CREATININE (test code = 2.43 mg/dL 0.50-1.04 H 7771808601) TOTAL BILI (test code = 0.9 mg/dL 0.1-1.8 4251013677) CALCIUM (test code = 8.5 mg/dL 8.6-10.6 L 0454997769) T PROTEIN (test code = 7.1 g/dL 6.3-8.2 0152395268) ALBUMIN (test code = 4.1 g/dL 3.5-5.0 7370512664) ALK PHOS (test code = 211 U/L 34-122 H 8358551097) ALTv (test code = 91 U/L 5-35 H 2-6) AST(SGOT) (test code = 67 U/L 13-40 H 1296415829) eGFR (test code = mL/min/1.73m2 9987484799) FLY (test code = FLY) Association of [...] tests). Lab Interpretation Abnormal (test code = 01611-1) [facility]2022-03-06 18:02:18 Test Item Value Reference Range Interpretation Comments LIPASE (test code = 6391963287) 101 U/L 0-220 Lab Interpretation (test code = Normal 87127-8) [facility] ClubACTIV[facility] PARTIAL THRMPLAS [id number] 17:59:21 Test Item Value Reference Range Interpretation Comments APTT Patient (test See_Comment [Automat ed code = 3173-2) message] The system which generated this result transmitted reference range : 23 - 38 Seconds . The reference range was not used to interpr et this result as normal/abnormal . FLY (test code = FLY) The [facility] patient population mean normal value for aPTT is 30 seconds. Lab Interpretation Normal (test code = 44445-9) [facility] ClubPROTHROMBIN TIME / [id number] 17:57:40 Test Item Value Reference Range Interpretation [...] tions. Lab Interpretation (test Normal code = 54722-0) [facility] ClubTROP[facility]IN [id number] 16:03:07 Test Item Value Reference Interpretation Comments Range TROPONIN I (test <0.012 See_Comment [Automated code = 2373400535) message] The system which generated this result [...] biotin. Lab Interpretation Normal (test code = 85367-0) [facility] Club[facility]. METABOLIC PANEL ([id number])2021-10-16 15:52:01 Test Item Value Reference Range Interpretation Comments NA (test code = 135 mmol/L 135-145 2478812504) K (test code = 3.9 mmol/L 3.5-5.0 4276779129) CL (test code = 98 mmol/L 98-108 0816451374) CO2 TOTAL (test code = 22 mmol/L 23-31 L 5403097188) AGAP (test code = 2-16 3404461996) BUN (test code = 25 mg/dL 7-23 H 6531698424) GLUCOSE (test code = 117 mg/dL 70-110 H 2476457575) CREATININE (test code = 2.20 mg/dL 0.50-1.04 H 9035348411) TOTAL BILI (test code = 0.8 mg/dL 0.1-1.1 8616296854) CALCIUM (test code = 8.8 mg/dL 8.6-10.6 1086013712) T PROTEIN (test code = 7.4 g/dL 6.3-8.2 4380079533) ALBUMIN (test code = 4.2 g/dL 3.5-5.0 2768884164) ALK PHOS (test code = 174 U/L 34-122 H 8266872715) ALTv (test code = 25 U/L 5-35 1742-6) AST(SGOT) (test code = 45 U/L 13-40 H 2319768536) eGFR (test code = mL/min/1.73m2 2448070852) FLY (test code = FLY) Association of [...] tests). Lab Interpretation Abnormal (test code = 37560-2) [facility] ClubL[facility]ASE2022-02-27 15:51:06 Test Item Value Reference Range Interpretation Comments LIPASE (test code = 3445790674) 68 U/L 0-220 Lab Interpretation (test code = Normal 13961-3) [facility] ClubCB WITH [id number] 15:40:44 Test Item Value Reference Range Interpretation [...] (test code = 58.0 fL 39.0-49.9 H 70872-2) RDW-CV (test code = 16.9 % 12.0-15.5 H 788-0) PLT (test code = See_Comment [Automated 777-3) message] The sy stem which generated this result transmitted reference range : 166 - 358 10*3/ ?L. The reference r sesar was not used to interpret this result as normal/abnormal . MPV (test code = 10.8 fL 9.5-12.9 81749-6) NRBC/100 WBC (test See_Comment [Automat ed code = 2149374427) message] The system which generated this result transmitted reference range : 0.0 - 10.0 /100 WBCs. The refer ence range was not u sed to interpret th is result as normal/abnormal . NRBC x10^3 (test code <0.01 See_Comment [Auto mated = 9328762961) message] The s ystem which generated this result transmitted reference range : 10*3/?L. The reference range was not used to interpret this result as normal/abnormal . GRAN MAT (NEUT) % 70.6 % (test code = 770-8) IMM GRAN % (test code 0.50 % = 2367801223) LYMPH % (test code = 14.3 % 736-9) MONO % (test code = 13.2 % 5905-5) EOS % (test code = 0.5 % 713-8) BASO % (test code = 0.9 % 706-2) GRAN MAT x10^3(ANC) 3.06 10*3/uL 1.88-7.09 (test code = 7276760570) IMM GRAN x10^3 (test <0.03 0.00-0.06 code = 1889754794) LYMPH x10^3 (test code 0.62 10*3/uL 1.32-3.29 L = 731-0) MONO x10^3 (test code 0.57 10*3/uL 0.33-0.92 = 742-7) EOS x10^3 (test code = <0.03 0.03-0.39 L 711-2) BASO x10^3 (test code 0.04 10*3/uL 0.01-0.07 = 704-7) Lab Interpretation Abnormal (test code = 15196-2) [facility] [Presence] in Respiratory specimen by TALIA with probe [id number] 09:35:29 Test Item Value Reference Range Interpretation Comments SARS-CoV-2 (COVID-19) RNA Not detected Not-Detected [Presence] in Respiratory specimen by TALIA with probe detection (test code = 59837-1) SARS-CoV-2 (COVID-19) RNA [Presence] in Respiratory specimen by TALIA with probe [id number] 23:17:05 Test Item Value Reference Range Interpretation Comments SARS-CoV-2 (COVID-19) RNA Not detected Not-Detected [Presence] in Respiratory specimen by TALIA with probe detection (test code = 46500-1)"
[2021-12-08] MEDS ORDERED: MORPHINE 4 MG/ML SYR ONE (17:53)
[2021-12-08] MEDS ORDERED: FAMOTIDINE 20 MG/2 ML VIAL IV ONE (17:53)
[2021-12-08] MEDS ORDERED: ONDANSETRON 4 MG/2 ML VIAL ONE ×2 (17:53→21:53)
[2021-12-08] MEDS ORDERED: NA CHLORIDE 0.9% 1,000 ML ONE (17:53)
[2021-12-08 17:54] LABS: Absolute Lymphocytes (CBC) 0.7 K/uL (0.7-4.9); Hematocrit 34.4 % (36.0-45.0); Lymphocytes % 18.3 % (15.3-44.8); MPV 9.1 fL (7.6-11.3); RBC Red Blood Cell Count 3.96 M/uL (3.86-4.86)
[2021-12-08 18:11] LABS: Albumin 3.4 g/dL (3.4-5.0); Bilirubin Total 1.1 mg/dL (0.2-1.0); Potassium 3.9 mmol/L (3.5-5.1); Protein, Total 7.1 g/dL (6.4-8.2)
--- NOTE | 2021-12-08 18:36 | RAD REPORT ---
EXAM DESCRIPTION: US - Abdomen Exam Limited - 12/08/2021 6:24 pm CLINICAL HISTORY: Abdominal pain. COMPARISON: 2018 FINDINGS: Cholecystectomy. Visualized liver has a normal echotexture The biliary tree is normal caliber. Small amount of ascites surrounds the liver IMPRESSION: Cholecystectomy Small amount of ascites
--- NOTE | 2021-12-08 18:48 | RAD REPORT ---
EXAM DESCRIPTION: CT - Abdomen Pelvis Wo Contrast - 12/08/2021 6:33 pm CLINICAL HISTORY: Abdominal pain /left upper quadrant pain COMPARISON: October 2021 TECHNIQUE: Computed axial tomography of the abdomen and pelvis was obtained. IV and oral contrast we re not requested. All CT scans are performed using dose optimization technique as appropriate and may include automated exposure control or mA/KV adjustment according to patient size. FINDINGS: The evaluation of solid organs, vessels, appendix and bowel is limited secondary to the l ack of contrast administration. Marked cardiomegaly. Small pericardial effusion Prominence of the IVC and hepatic veins. Spleen, pancreas, adrenals and left kidney appear grossly normal. 1 millimeter nonobstructing calculus right kidney There is no evidence of diverticulitis. Small amount of ascites within the abdomen. Small to moderate amount of ascites within the pelvis IMPRESSION: Small amount of ascites within the abdomen. Small to moderate amount of ascites within t he pelvis 1 millimeter nonobstructing calculus right kidney Prominence of the hepatic veins and IVC may indicate right heart failure
[2021-12-08 19:26] LABS: Urine Blood 2+ (Negative); Urine Glucose Negative (Negative); Urine Protein Negative (Negative); Urine Specific Gravity 1.015 (1.005-1.030)
[2021-12-08 20:13] LABS: Urine Bacteria NONE SEEN /HPF (<20); Urine RBC <5 /HPF (NONE SEEN)
--- NOTE | 2021-12-08 21:24 | ER ---
Nurse's Notes [facility] Name: Lise Loera Age: 61 yrs Sex: Female : 1960 Arrival Date: 12/08/2021 Time: 17:08 Bed 24 Private MD: Diagnosis: Unspecified combined systolic (congestive) and diastolic (congestive) heart failure;Dyspnea, unspecified;Hypoxemia Presentation: 12/08 17:00 Chief complaint: Patient states: I have a hernia that is ruptured and my stomach jg9 contents are leaking out, I have pain all on the left side up into the chest. I also am very weak and my legs are giving out on me causing me to fall a lot and I live alone and I don't feel safe at home by myself. Coronavirus screen: Vaccine status: Patient reports being unvaccinated. Ebola Screen: Patient negative for fever greater than or equal to 101.5 degrees Fahrenheit, and additional compatible Ebola Virus Disease symptoms Patient denies exposure to infectious person. Patient denies travel to an Ebola-affected area in the 21 days before illness onset. Initial Sepsis Screen: Does the patient meet any 2 criteria? No. Patient's initial sepsis screen is negative. Does the patient have a suspected source of infection? No. Patient's initial sepsis screen is negative. Risk Assessment: Do you want to hurt yourself or someone else? Patient reports no desire to harm self or others. Onset of symptoms is unknown. 17:00 Method Of Arrival: EMS: [facility] jg9 17:00 Acuity: ESTRELLITA 3 jg9 Triage Assessment: 17:00 General: Appears uncomfortable, Behavior is calm, cooperative. Pain: Complains of pain jg9 in abdomen-left upper and lower Pain radiates to chest-lrft chest area. GI: Reports ruptured hernia. Historical: - Allergies: 17:11 Codeine; jg9 17:11 Eliquis; jg9 17:11 PENICILLINS; jg9 17:11 Sulfa (Sulfonamide Antibiotics); jg9 17:11 Tylenol; jg9 - Home Meds: 17:11 amiodarone 100 mg Oral tab 1 tab 2 times per day [Active]; Aspirin EC Oral [Active]; jg9 Entresto 49-51 mg Oral tab [Active]; Lasix 20 mg Oral tab 60 mg in am, 40 mg in pm [Active]; potassium chloride 10 mEq Oral cpER 1 cap once daily [Active]; Xanax 2 mg Oral tab 1 tab 3 times per day [Active]; - PMHx: 17:11 ADD/ADHD; Anxiety; Atrial Fib; CAD; cancer - skin; Cancer, Breast; CHF; Hypertension; jg9 Pacemaker; Myocardial infarction; - PSHx: 17:11 Pacemaker/Defib; jg9 - Immunization history:: Adult Immunizations not up to date. - Social history:: Smoking status: Patient denies any tobacco usage or history of. Patient/guardian denies using alcohol, street drugs, The patient lives with family. - Family history:: not pertinent. Screenin:13 Abuse screen: Denies threats or abuse. Denies injuries from another. Nutritional jg9 screening: No deficits noted. Tuberculosis screening: No symptoms or risk factors identified. Fall Risk Fall in past 12 months (25 points). Assessment: 17:14 GI: Bowel sounds present X 4 quads. Abd is soft X 4 quads Abdomen is tender to jg9 palpation in left upper quadrant and left lower quadrant. 18:12 Reassessment: No changes from previously documented assessment. Patient and/or family jg9 updated on plan of care and expected duration. Pain level reassessed. 18:36 Reassessment: Pt's Sister, Trisha Wiggins, . jl7 19:24 Reassessment: Patient appears in no apparent distress at this time. No changes from katelyn previously documented assessment. The pt's O2 sat was noted to be 88% on RA, so she was put on 2L NC and MD informed. The pt was assisted to the bsc and was able to provide a urine specimen. 20:34 Reassessment: MD is at bedside discussing the results with the pt and explaining the katelyn importance of f/u. 20:40 Reassessment: The pt has requested and was given a sandwich, jello and juice. MD aware. katelyn 21:02 Reassessment: The pt tolerated her food well. katelyn 21:23 Reassessment: The pt has been off the O2 for some time and has held her O2 sat 96% or katelyn better. 21:36 Reassessment: I took a Covid swab, as the pt is to be admitted. She is to be moved to katelyn Pod #1, after I give report. 21:37 Reassessment: I also put the pt back on the O2, as she is very talkative and desats katelyn when she is speaking so much. 21:50 Reassessment: Report given on the pt to the "ER Holding" nurse. The pt was taken to katelyn room #24. Vital Signs: 17:00 BP 99 / 68; Pulse 77; Resp 20 S; Temp 98.7(A); Pulse Ox 96% on R/A; Weight 58.97 kg jg9 (R); Height 5 ft. 2 in. (157.48 cm) (R); Pain 10/10; 17:00 BP 99 / 68; Pulse 77; Resp 17 S; Pulse Ox 97% on R/A; jg9 17:45 BP 93 / 67; Pulse 73; Resp 17 S; Pulse Ox 97% on R/A; jg9 18:00 BP 106 / 64; Pulse 71; Resp 17 S; Pulse Ox 93% on R/A; Pain 10/10; jg9 18:45 BP 96 / 75; Pulse 74; Resp 17 S; Pulse Ox 95% on R/A; jg9 19:25 BP 78 / 57 LL; Pulse 74; Resp 20; Pulse Ox 100% on 2 lpm NC; Pain 0/10; katelyn 20:24 BP 98 / 61; Pulse 59; Resp 18; Pulse Ox 98% on 2 lpm NC; katelyn 21:22 BP 113 / 72; Pulse 70; Resp 18; Pulse Ox 97% on R/A; katelyn 21:37 BP 106 / 78; Pulse 66; Resp 20; Temp 98.5; Pulse Ox 97% on 2 lpm NC; katelyn 17:00 Body Mass Index 23.78 (58.97 kg, 157.48 cm) jg9 ED Course: 17:08 Patient arrived in ED. jg9 17:09 Nette Vincent, DAMASO is Primary Nurse. jg9 17:11 Ethel Valenzuela MD is Attending Physician. ma2 17:11 Triage completed. jg9 17:13 Arm band placed on right wrist. jg9 17:14 Patient has correct armband on for positive identification. Bed in low position. Call jg9 light in reach. Side rails up X 1. 17:27 Initial lab(s) drawn, by me, sent to lab. Inserted saline lock: 20 gauge in right kj1 antecubital area, using aseptic technique. Blood collected. Missed attempt(s): 20 gauge in right antecubital area. 18:12 Inserted saline lock: 22 gauge in left forearm, using aseptic technique. jg9 18:26 Abdomen Limited US In Process Unspecified. EDMS 18:34 Abdomen In Process Unspecified. EDMS 18:59 Attending Physician role handed off by Ethel Valenzuela MD rn 18:59 Gian Yun MD is Attending Physician. rn 19:23 Primary Nurse role handed off by Nette Vincent RN katelyn 19:23 Katy Pérez RN is Primary Nurse. katelyn 19:26 No provider procedures requiring assistance completed. katelyn 19:38 Urine Microscopic Only Sent. ab2 21:23 XRAY Chest (1 view) In Process Unspecified. EDMS 21:23 Ethel Jacques MD is Hospitalizing Provider. rn 21:51 IV is patent, is intact, kateyln 12/09 01:53 Primary Nurse role handed off by Katy Pérez, DAMASO cs9 02:59 Buster Lewis, DAMASO is Primary Nurse. fv Administered Medications: 12/08 18:05 Drug: Pepcid (famotidine) 20 mg Route: IVP; Site: left forearm; jg9 19:06 Follow up: Response: No adverse reaction jg9 18:05 Drug: morphine 4 mg Route: IVP; Site: left forearm; jg9 19:06 Follow up: Response: No adverse reaction; Pain is decreased jg9 18:06 Drug: Zofran (Ondansetron) 4 mg Route: IVP; Site: left forearm; jg9 19:06 Follow up: Response: No adverse reaction jg9 18:10 Drug: NS 0.9% 1000 ml Route: IV; Rate: 1 bolus; Site: left antecubital; jg9 21:35 Drug: Lasix (furosemide) 20 mg Route: IVP; Site: left forearm; katelyn 21:47 Follow up: Response: No adverse reaction katelyn Outcome: 19:26 Condition: stable katelyn 21:24 Decision to Hospitalize by Provider. rn 21:51 Admitted to katelyn 12/09 03:39 Patient left the ED. tw5 Signatures: Dispatcher [employer] EDMS Gian Yun MD MD rn Vergel De Dio, Flomeliza, RN RN fv Leal, Jahala, RN RN jl7 Ethel Valenzuela MD MD ma2 Jackson, Kandis kj1 Ozzy Viry tw5 Tracie Montoya Nette Echols RN RN jg9 Katy Pérez RN RN bo Bleininger, Abdi sabillon Corrections: (The following items were deleted from the chart) 12/08 18:12 17:27 Inserted saline lock: 20 gauge in right antecubital area, using aseptic jg9 technique. Blood collected. kj1
--- NOTE | 2021-12-08 21:25 | EDPHYS ---
Physician Documentation [facility] Name: Lise Loera Age: 61 yrs Sex: Female : 1960 Arrival Date: 12/08/2021 Time: 17:08 Bed 24 Private MD: ED Physician Gian Yun HPI: 12/08 17:26 This 61 yrs old Female presents to ER via EMS with complaints of Abdominal Problem - ma2 patient reports a hx of a hernia that she reports has ruptured and her stomach contents are dumping into her, she also c/o such weakness that her legs are giving out as well as having concern for being able to care for herself at home alone.. 17:26 59-year-old female, here with epigastric abdominal pain and generalized abdominal ma2 swelling that she has been having for a while, patient has ascites as well, patient reports epigastric abdominal pain and right upper quadrant abdominal pain no nausea vomiting.. Historical: - Allergies: 17:11 Codeine; jg9 17:11 Eliquis; jg9 17:11 PENICILLINS; jg9 17:11 Sulfa (Sulfonamide Antibiotics); jg9 17:11 Tylenol; jg9 - Home Meds: 17:11 amiodarone 100 mg Oral tab 1 tab 2 times per day [Active]; Aspirin EC Oral [Active]; jg9 Entresto 49-51 mg Oral tab [Active]; Lasix 20 mg Oral tab 60 mg in am, 40 mg in pm [Active]; potassium chloride 10 mEq Oral cpER 1 cap once daily [Active]; Xanax 2 mg Oral tab 1 tab 3 times per day [Active]; - PMHx: 17:11 ADD/ADHD; Anxiety; Atrial Fib; CAD; cancer - skin; Cancer, Breast; CHF; Hypertension; jg9 Pacemaker; Myocardial infarction; - PSHx: 17:11 Pacemaker/Defib; jg9 - Immunization history:: Adult Immunizations not up to date. - Social history:: Smoking status: Patient denies any tobacco usage or history of. Patient/guardian denies using alcohol, street drugs, The patient lives with family. - Family history:: not pertinent. ROS: 17:26 Constitutional: Negative for fever, chills, and weight loss. ma2 17:26 All other systems are negative. Exam: 17:26 Constitutional: This is a well developed, well nourished patient who is awake, alert, ma2 and in no acute distress. Head/Face: Normocephalic, atraumatic. Eyes: Pupils equal round and reactive to light, extra-ocular motions intact. Lids and lashes normal. Conjunctiva and sclera are non-icteric and not injected. Cornea within normal limits. Periorbital areas with no swelling, redness, or edema. ENT: Nares patent. No nasal discharge, no septal abnormalities noted. Tympanic membranes are normal and external auditory canals are clear. Oropharynx with no redness, swelling, or masses, exudates, or evidence of obstruction, uvula midline. Mucous membranes moist. Neck: Trachea midline, no thyromegaly or masses palpated, and no cervical lymphadenopathy. Supple, full range of motion without nuchal rigidity, or vertebral point tenderness. No Meningismus. Chest/axilla: Normal chest wall appearance and motion. Nontender with no deformity. No lesions are appreciated. Cardiovascular: Regular rate and rhythm with a normal S1 and S2. No gallops, murmurs, or rubs. Normal PMI, no JVD. No pulse deficits. Respiratory: Lungs have equal breath sounds bilaterally, clear to auscultation and percussion. No rales, rhonchi or wheezes noted. No increased work of breathing, no retractions or nasal flaring. Abdomen/GI: There is tenderness to palpation right upper quadrant abdominal pain and epigastric pain soft, , with normal bowel sounds. No distension or tympany. No guarding or rebound. No evidence of tenderness throughout. Back: No spinal tenderness. No costovertebral tenderness. Full range of motion. Skin: Warm, dry with normal turgor. Normal color with no rashes, no lesions, and no evidence of cellulitis. MS/ Extremity: Pulses equal, no cyanosis. Neurovascular intact. Full, normal range of motion. Neuro: Awake and alert, GCS 15, oriented to person, place, time, and situation. Cranial nerves II-XII grossly intact. Motor strength 5/5 in all extremities. Sensory grossly intact. Cerebellar exam normal. Normal gait. Vital Signs: 17:00 BP 99 / 68; Pulse 77; Resp 20 S; Temp 98.7(A); Pulse Ox 96% on R/A; Weight 58.97 kg jg9 (R); Height 5 ft. 2 in. (157.48 cm) (R); Pain 10/10; 17:00 BP 99 / 68; Pulse 77; Resp 17 S; Pulse Ox 97% on R/A; jg9 17:45 BP 93 / 67; Pulse 73; Resp 17 S; Pulse Ox 97% on R/A; jg9 18:00 BP 106 / 64; Pulse 71; Resp 17 S; Pulse Ox 93% on R/A; Pain 10/10; jg9 18:45 BP 96 / 75; Pulse 74; Resp 17 S; Pulse Ox 95% on R/A; jg9 19:25 BP 78 / 57 LL; Pulse 74; Resp 20; Pulse Ox 100% on 2 lpm NC; Pain 0/10; katelyn 20:24 BP 98 / 61; Pulse 59; Resp 18; Pulse Ox 98% on 2 lpm NC; katelyn 21:22 BP 113 / 72; Pulse 70; Resp 18; Pulse Ox 97% on R/A; katelyn 21:37 BP 106 / 78; Pulse 66; Resp 20; Temp 98.5; Pulse Ox 97% on 2 lpm NC; katelyn 17:00 Body Mass Index 23.78 (58.97 kg, 157.48 cm) j9 MDM: 17:11 Patient medically screened. ma2 17:26 Differential diagnosis: cholecystitis, gastritis, gastroesophageal reflux disease, ma2 Hepatitis, Irritable bowel syndrome. 18:48 Data reviewed: vital signs, nurses notes, lab test result(s). Counseling: I had a ma2 detailed discussion with the patient and/or guardian regarding: the historical points, exam findings, and any diagnostic results supporting the discharge/admit diagnosis, the presence of at least one elevated blood pressure reading (>120/80) during this emergency department visit, the need for outpatient follow up. Response to treatment: the patient's symptoms have markedly improved after treatment. ED course: I received ultrasound report verbally that gallbladder is not present and CBD is not dilated. Patient has ascites on ultrasound. Lab work shows mild elevation in alk phos, creatinine is 2 which is at baseline, will get CT abdomen without contrast. CT is still pending we will sign out to upcoming ED physician Dr. Yun at shift change.. 21:22 ED course: Pt reports in addition to abd pain has been having exertional dyspnea, rn states compliant with lasix, hasn't taken tonight. Elevated BNP and volume overload on CXR. Pt placed on oxygen for oxygen 88%. . 12/08 17:25 Order name: CBC with Diff; Complete Time: 18:47 ma2 12/08 17:25 Order name: CMP; Complete Time: 18:47 ma2 12/08 17:25 Order name: Lipase; Complete Time: 18:47 ma2 12/08 17:25 Order name: Urine Microscopic Only; Complete Time: 20:29 ma2 12/08 19:27 Order name: Urine Dipstick-Ancillary; Complete Time: 19:28 EDMS 12/08 20:40 Order name: BNP; Complete Time: 21:07 ds4 12/08 17:25 Order name: Abdomen Limited US; Complete Time: 19:02 ma2 12/08 18:19 Order name: Abdomen ; Complete Time: 19:28 EDMS 12/08 20:39 Order name: XRAY Chest (1 view); Complete Time: 21:39 rn 12/08 22:11 Order name: COVID-19 SARS RT PCR (Document "Date of Onset" if Symptomatic); Complete ds4 Time: 01:12/08 23:39 Order name: Urine Dipstick-Ancillary; Complete Time: 01:21 EDMS 12/08 17:25 Order name: IV Saline Lock; Complete Time: 18:11 ma2 12/08 17:25 Order name: Labs collected and sent; Complete Time: 17:46 ma2 Administered Medications: 18:05 Drug: Pepcid (famotidine) 20 mg Route: IVP; Site: left forearm; jg9 19:06 Follow up: Response: No adverse reaction jg9 18:05 Drug: morphine 4 mg Route: IVP; Site: left forearm; jg9 19:06 Follow up: Response: No adverse reaction; Pain is decreased jg9 18:06 Drug: Zofran (Ondansetron) 4 mg Route: IVP; Site: left forearm; jg9 19:06 Follow up: Response: No adverse reaction jg9 18:10 Drug: NS 0.9% 1000 ml Route: IV; Rate: 1 bolus; Site: left antecubital; jg9 21:35 Drug: Lasix (furosemide) 20 mg Route: IVP; Site: left forearm; katelyn 21:47 Follow up: Response: No adverse reaction katelyn Disposition Summary: 12/08/21 21:24 Hospitalization Ordered Hospitalization Status: Inpatient Admission rn Provider: Ethel Jacques rn Location: Telemetry/[facility] (Inpatient) rn Condition: Stable rn Problem: an acute exacerbation rn Symptoms: are unchanged rn Bed/Room Type: Standard rn Room Assignment: 211(12/09/21 00:31) mw Diagnosis - Unspecified combined systolic (congestive) and diastolic (congestive) heart failure rn - Dyspnea, unspecified rn - 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 Sigrid Pappas RN Gian Mike MD MD rn Alzahri, Mohammad, MD MD ma2 Nette Vincent RN RN jg9 Katy Pérez RN RN bo Corrections: (The following items were deleted from the chart) 18:19 17:29 Abdomen Pelvis W Con+CT.RAD.BRZ ordered. [facility] 12/09 00:31 12/08 21:24 rn judy
[2021-12-08] MEDS ORDERED: FUROSEMIDE 20 MG/ 2ML VIAL ONE (21:31)
--- NOTE | 2021-12-08 21:36 | RAD REPORT ---
EXAM DESCRIPTION: Manpreet Single View12/08/2021 9:21 pm CLINICAL HISTORY: Shortness of breath COMPARISON: October 2021 FINDINGS: The lungs appear clear of acute infiltrate. The heart is markedly enlarged. Pacemaker rain ds are in place. IMPRESSION: No acute abnormalities displayed
--- NOTE | 2021-12-08 22:49 | P.HP ---
Certification for Inpatient Patient admitted to: Inpatient With expected LOS: >2 Midnights Patient will require the following post-hospital care: None Practitioner: I am a practitioner with admitting privileges, knowledge of patient current condition, hospital course, and medical plan of care. Services: Services provided to patient in accordance with Admission requirements found in Title 42 Section 412.3 of the Code of Federal Regulations <Shae Alonzo - Last Filed: 12/08/21 23:53> Patient History Date of Service: 12/08/21 Reason for admission: CHF, Hypoxemia History of Present Illness: Patient is a 61-year-old female with PMH of systolic CHF, A. fib not on anticoagulation, CAD, cirrhosis, history of breast cancer who presented to the ED with complaints of abdominal pain. Ultrasound and CT negative for acute process. Further work-up revealed a proBNP of 15,000. Patient was saturating in the high 80s on room air and put on nasal cannula. Upon my exam, patient's lips appeared cyanotic although she did not complain of any difficulty breathing. Her last echocardiogram showed an EF of 25%. Patient had 1+ pitting edema. She was given Pepcid, morphine, Zofran, Lasix in the ED. vital signs stable. we will admit patient for further evaluation and treatment with cardiology consulting. Home medications list reviewed: Yes - Past Medical/Surgical History Diabetic: No -: Chronic anxiety -: Atrial fibrillation, not on chronic anti coagulation therapy -: CAD -: History pacemaker/defibrillator -: History of breast cancer -: CHF, systolic dysfunction -: cholecystectomy -: pacemaker/ defib -: R breast surg Psychosocial/ Personal History: Patient is single. She has 2 children - Family History Father -: Heart disease - Social History Smoking Status: Current some day smoker Alcohol use: No CD- Drugs: No Caffeine use: No Place of Residence: Home <Shae Alonzo - Last Filed: 12/08/21 23:53> Date of Service: 12/08/21 <Ethel Jacques - Last Filed: 12/10/21 10:53> Allergies Penicillins Allergy (Intermediate, Verified 12/14/18 03:10) Hives/Rash codeine Allergy (Verified 12/14/18 03:10) Unknown Home Medications: ALPRAZolam [Alprazolam] 1 tab PO TID 12/14/18 Amiodarone HCl [Cordarone*] 1 tab PO DAILY 12/14/18 Furosemide 20 tab PO SEECOM 12/14/18 Potassium Chloride 1 tab PO DAILY 12/14/18 Sacubitril/Valsartan [Entresto 24 mg-26 mg Tablet] 1 each PO BID 03/11/19 Aspirin 1 tab PO DAILY 12/08/21 Review of Systems Cardiovascular: Edema Gastrointestinal: Abdominal Pain <Shae Alonzo - Last Filed: 12/08/21 23:53> Physical Examination - Physical Exam General: Alert, In no apparent distress, Other (lips cyanotic ) HEENT: Atraumatic, PERRLA, EOMI, Sclerae nonicteric Neck: Supple, 2+ carotid pulse no bruit, No LAD, Without JVD or thyroid abnormality Respiratory: Clear to auscultation bilaterally, Normal air movement Cardiovascular: Regular rate/rhythm, Edema Gastrointestinal: Normal bowel sounds, Tenderness Musculoskeletal: No tenderness Integumentary: No rashes Neurological: Normal speech, Normal strength at 5/5 x4 extr, Normal tone, Normal affect - Studies Laboratory Data (last 24 hrs) 12/08/21 17:45: Sodium 138, Potassium 3.9, BUN 40 H, Creatinine 2.07 H, Glucose 109 H, Total Bilirubin 1.1 H, AST 48 H, ALT 50, Alkaline Phosphatase 164 H, Lipase 126 12/08/21 17:45: WBC 4.0 L, Hgb 10.9 L, Hct 34.4 L, Plt Count 178 <ClintonShae - Last Filed: 12/08/21 23:53> Assessment and Plan - Problems (Diagnosis) (1) Acute on chronic systolic heart failure Current Visit: Yes Status: Acute (2) Cirrhosis of liver Current Visit: Yes Status: Chronic Qualifiers: Hepatic cirrhosis type: unspecified hepatic cirrhosis Ascites presence: with ascites Qualified Code(s): K74.60 - Unspecified cirrhosis of liver; R18.8 - Other ascites (3) Hypoxemia requiring supplemental oxygen Current Visit: Yes Status: Acute (4) Chronic a-fib Current Visit: Yes Status: Chronic (5) Anxiety Current Visit: Yes Status: Chronic (6) CKD (chronic kidney disease) stage 4, GFR 15-29 ml/min Current Visit: Yes Status: Chronic - Plan -proBNP elevated at 15,000. Last echo revealed EF of 25%. Chest x-ray did not show signs of volume overload. Patient had 1+ pitting edema. She was given 20 mg IV Lasix in the ED. We will continue 20 mg IV twice daily. Cardiology consulted -Continue patient on supplemental oxygen as needed -Patient's creatinine was 2, but appears around her baseline. She has CKD stage IV. Hold nephrotoxic agents -Initial complaint was abdominal pain. She states that her stomach has a tear and is leaking contents and causing her pain however CT did not show any signs of that. -Heparin for DVT prophylaxis Discharge Plan: Home Plan to discharge in: Greater than 2 days - Advance Directives Does patient have a Living Will: No Does patient have a Durable POA for Healthcare: No - Code Status/Comfort Care Code Status Assessed: Yes (Full) Critical Care: No Time Spent Managing Pts Care (In Minutes): 50 <Shae Alonzo - Last Filed: 12/08/21 23:53> - Problems (Diagnosis) (1) Acute on chronic systolic heart failure Current Visit: Yes Status: Acute (2) Hypoxemia requiring supplemental oxygen Current Visit: Yes Status: Acute (3) Cirrhosis of liver Current Visit: Yes Status: Chronic Qualifiers: Hepatic cirrhosis type: unspecified hepatic cirrhosis Ascites presence: with ascites Qualified Code(s): K74.60 - Unspecified cirrhosis of liver; R18.8 - Other ascites (4) Anxiety attack Current Visit: No Status: Acute (5) Atrial fibrillation Current Visit: No Status: Chronic Qualifiers: (6) CHF exacerbation Current Visit: No Status: Chronic Qualifiers: Heart failure type: diastolic Qualified Code(s): I50.33 - Acute on chronic diastolic (congestive) heart failure <Ethel Jacques - Last Filed: 12/10/21 10:53> Date of Service: 12/08/21 Subjective Date of Service: 12/09/21 Subjective: No new changes, No C/O voiced Review of Systems 10-point ROS is otherwise unremarkable Physical Examination - Vital Signs Temperature: 97.6 F Blood Pressure: 103/68 Pulse: 78 Respirations: 14 Pulse Ox (%): 98 - Physical Exam General: Alert, In no apparent distress, Oriented x3 HEENT: Atraumatic, PERRLA, EOMI Neck: Supple, JVD not distended Respiratory: Clear to auscultation bilaterally, Normal air movement Cardiovascular: Regular rate/rhythm, Normal S1 S2 Gastrointestinal: Normal bowel sounds, No tenderness Musculoskeletal: No tenderness Integumentary: No rashes Neurological: Normal speech, Normal tone, Normal affect Lymphatics: No axilla or inguinal lymphadenopathy - Studies Medications List Reviewed: Yes Assessment & Plan - Problems (Diagnosis) (1) Acute on chronic systolic heart failure Current Visit: Yes Status: Acute (2) Hypoxemia requiring supplemental oxygen Current Visit: Yes Status: Acute (3) Cirrhosis of liver Current Visit: Yes Status: Chronic Qualifiers: Hepatic cirrhosis type: unspecified hepatic cirrhosis Ascites presence: with ascites Qualified Code(s): K74.60 - Unspecified cirrhosis of liver; R18.8 - Other ascites (4) Anxiety attack Current Visit: No Status: Acute (5) Atrial fibrillation Current Visit: No Status: Chronic Qualifiers: (6) CHF exacerbation Current Visit: No Status: Chronic Qualifiers: Heart failure type: diastolic Qualified Code(s): I50.33 - Acute on chronic diastolic (congestive) heart failure - Plan PLAN: 1. Echocardiogram if it has not been performed in the last 6 months 2. We will start patient on an JUDY inhibitor or an ARB 3. We will start patient on a Beta jessica 4. Cardiology consultation 5. Aggressive diuresis 6. Strict I's and O's 7. Repeat CXR 8. Daily weights 9. Education regarding diet and treatment of congestive heart failure Discharge Plan: Home Plan to discharge in: Greater than 2 days - Advance Directives Does patient have a Living Will: No Does patient have a Durable POA for Healthcare: No - Code Status/Comfort Care Code Status Assessed: Yes Code Status: Full Code Critical Care: No Time Spent Managing PTS Care (In Minutes): 35 <Ethel Jacques - Last Filed: 12/10/21 10:53>
[2021-12-08] MEDS ORDERED: ONDANSETRON 4 MG/2 ML VIAL IV PRN (22:51)
[2021-12-08] MEDS ORDERED: MORPHINE 2 MG/ML SYR IV PRN (22:51)
[2021-12-08] MEDS ORDERED: ACETAMINOPHEN 500 MG TAB PO PRN (22:51)
[2021-12-08 23:38] LABS: Urine Blood 1+ (Negative); Urine Glucose Negative (Negative); Urine Protein Negative (Negative); Urine Specific Gravity 1.025 (1.005-1.030)
[2021-12-09] MEDS: HEPARIN 5000 UNIT/ML 1 ML VIAL SQ SCH ×3 (01:00→17:00)
[2021-12-09 01:16] VITALS: BMI 23.7
[2021-12-09] MEDS ORDERED: HEPARIN 5000 UNIT/ML 1 ML VIAL ONE (01:38)
[2021-12-09] MEDS ORDERED: FENTANYL CITR 100 MCG/2 ML IV ONE (02:12)
[2021-12-09] MEDS ORDERED: FENTANYL CITR 100 MCG/2 ML ONE (02:27)
[2021-12-09 05:09] LABS: Absolute Lymphocytes (CBC) 0.7 K/uL (0.7-4.9); Hematocrit 35.2 % (36.0-45.0); Lymphocytes % 13.2 % (15.3-44.8); MPV 9.5 fL (7.6-11.3); RBC Red Blood Cell Count 3.95 M/uL (3.86-4.86)
[2021-12-09 05:25] LABS: Albumin 3.5 g/dL (3.4-5.0); Bilirubin Total 1.3 mg/dL (0.2-1.0); Magnesium 2.7 mg/dL (1.8-2.4); Phosphorus 4.7 mg/dL (2.5-4.9); Potassium 4.6 mmol/L (3.5-5.1); Protein, Total 7.2 g/dL (6.4-8.2); Thyroid Stimulating Hormone 9.98 uIU/mL (0.360-3.740)
[2021-12-09] MEDS ORDERED: FUROSEMIDE 20 MG/ 2ML VIAL IV SCH (09:00)
[2021-12-09] MEDS ORDERED: FUROSEMIDE 40 MG/4 ML VIAL IV SCH (09:00)
[2021-12-09] MEDS: ALBUMIN HUMAN 25% 12.5 GM, FUROSEMIDE 100 MG in NA CHLORIDE 0.9% 40 ML IV SCH ×2 (14:00→19:00)
[2021-12-09] MEDS ORDERED: ALBUMIN HUMAN 25% 100 ML IV ONE (16:00)
[2021-12-09] MEDS: MIDODRINE HCL 5 MG TABLET PO SCH ×2 (16:00→20:22)
[2021-12-09] MEDS ORDERED: FENTANYL CITR 100 MCG/2 ML IV PRN (18:40)
[2021-12-09] MEDS ORDERED: DIAZEPAM 5 MG TABLET PO ONE (21:12)
[2021-12-10] MEDS: HEPARIN 5000 UNIT/ML 1 ML VIAL SQ SCH (00:17)
[2021-12-10] MEDS ORDERED: HYDROCODONE/APAP 10/325 TAB PO ONE (00:21)
--- NOTE | 2021-12-10 00:21 | CON ---
Date of Consultation: 12/09/2021 Reason For Consultation: CHF. History Of Present Illness: This is a 61-year-old female with history of severe systolic heart failu re, chronic kidney failure, AFib on anticoagulation, and breast cancer who presented with abdominal p ain. CT scan was negative for acute process and the patient was fluid overloaded with lower extremit y edema and shortness of breath. Past Medical History: As outlined above in HPI. Medications: Refer reconciliation sheet for detailed list. Allergies: PENICILLIN AND CODEINE. Family History: No premature coronary artery disease or cancer. Social History: Does not smoke or drink. Does not use any drugs. Review of Systems: All systems reviewed and they were negative except as mentioned in HPI. Physical Examination: Vital Signs: Reviewed. Head and Neck: Pupils are equal and reactive to light. Intact eye movements. Positive JVD. No cer vical lymphadenopathy. Neck supple. Thyroid is not enlarged. Lungs: Clear to auscultation bilaterally. No rhonchi, rales, or crackles. No accessory muscle use. Heart: Regular. No extra sounds. Abdomen: Soft, nontender. Bowel sounds positive. No organomegaly. No masses or hernia. No rigidi ty or rebound. Extremities: No clubbing, cyanosis. Intact pulses. Skin: No rash. Neuro: Alert, awake. No acute focal deficits appreciated. Investigations: Hemoglobin is 11, creatinine is 2.21. Assessment And Recommendations: 1.[id number]-zb-[id number] systolic congestive heart failure exacerbation. She is getting albumin and Lasix . Due to the chronic kidney disease, recommend Nephrology evaluation to help managing the diuresis a nd her blood pressure is on the low side. I will hold off on any further diuretics now, especially t hat her kidney function is worsening and re-evaluate tomorrow morning. Low-salt diet and close monit oring. 2.Abdominal pain. Recommend to consult Surgery as the patient was told that she has hernia that nee ds to be fixed. SR/MODL Voice ID: [id number] Report ID: [id number]
[2021-12-10 08:39] VITALS: BP 103/68; TEMP 97.6
[2021-12-10 09:00] VITALS: O2SAT 99
[2021-12-10] MEDS ORDERED: FUROSEMIDE 20 MG TABLET PO SCH (09:00)
--- NOTE | 2021-12-10 10:52 | P.PN ---
Subjective Date of Service: 12/09/21 Subjective: No new changes, No C/O voiced Review of Systems 10-point ROS is otherwise unremarkable Physical Examination - Vital Signs Temperature: 97.6 F Blood Pressure: 103/68 Pulse: 78 Respirations: 14 Pulse Ox (%): 98 - Physical Exam General: Alert, In no apparent distress, Oriented x3 HEENT: Atraumatic, PERRLA, EOMI Neck: Supple, JVD not distended Respiratory: Clear to auscultation bilaterally, Normal air movement Cardiovascular: Regular rate/rhythm, Normal S1 S2 Gastrointestinal: Normal bowel sounds, No tenderness Musculoskeletal: No tenderness Integumentary: No rashes Neurological: Normal speech, Normal tone, Normal affect Lymphatics: No axilla or inguinal lymphadenopathy - Studies Medications List Reviewed: Yes Assessment & Plan - Problems (Diagnosis) (1) Acute on chronic systolic heart failure Current Visit: Yes Status: Acute (2) Hypoxemia requiring supplemental oxygen Current Visit: Yes Status: Acute (3) Cirrhosis of liver Current Visit: Yes Status: Chronic Qualifiers: Hepatic cirrhosis type: unspecified hepatic cirrhosis Ascites presence: with ascites Qualified Code(s): K74.60 - Unspecified cirrhosis of liver; R18.8 - Other ascites (4) Anxiety attack Current Visit: No Status: Acute (5) Atrial fibrillation Current Visit: No Status: Chronic Qualifiers: (6) CHF exacerbation Current Visit: No Status: Chronic Qualifiers: Heart failure type: diastolic Qualified Code(s): I50.33 - Acute on chronic diastolic (congestive) heart failure - Plan PLAN: 1. Echocardiogram if it has not been performed in the last 6 months 2. We will start patient on an JUDY inhibitor or an ARB 3. We will start patient on a Beta jessica 4. Cardiology consultation 5. Aggressive diuresis 6. Strict I's and O's 7. Repeat CXR 8. Daily weights 9. Education regarding diet and treatment of congestive heart failure Discharge Plan: Home Plan to discharge in: Greater than 2 days - Advance Directives Does patient have a Living Will: No Does patient have a Durable POA for Healthcare: No - Code Status/Comfort Care Code Status Assessed: Yes Code Status: Full Code Critical Care: No Time Spent Managing PTS Care (In Minutes): 35
--- NOTE | 2021-12-10 10:54 | P.DS ---
Discharge Date: 12/10/21 Disposition: AMA-LEFT AGAINST MEDICAL ADVIC Discharge Condition: GOOD Reason for Admission: CHF, Hypoxemia - Problems (1) Acute on chronic systolic heart failure Current Visit: Yes Status: Acute (2) Hypoxemia requiring supplemental oxygen Current Visit: Yes Status: Acute (3) Cirrhosis of liver Current Visit: Yes Status: Chronic Qualifiers: Hepatic cirrhosis type: unspecified hepatic cirrhosis Ascites presence: with ascites Qualified Code(s): K74.60 - Unspecified cirrhosis of liver; R18.8 - Other ascites (4) Anxiety attack Current Visit: No Status: Acute (5) Atrial fibrillation Current Visit: No Status: Chronic Qualifiers: (6) CHF exacerbation Current Visit: No Status: Chronic Qualifiers: Heart failure type: diastolic Qualified Code(s): I50.33 - Acute on chronic diastolic (congestive) heart failure Brief History of Present Illness: Patient is a 61-year-old female with PMH of systolic CHF, A. fib not on anticoagulation, CAD, cirrhosis, history of breast cancer who presented to the ED with complaints of abdominal pain. Ultrasound and CT negative for acute process. Further work-up revealed a proBNP of 15,000. Patient was saturating in the high 80s on room air and put on nasal cannula. Upon my exam, patient's lips appeared cyanotic although she did not complain of any difficulty breathing. Her last echocardiogram showed an EF of 25%. Patient had 1+ pitting edema. She was given Pepcid, morphine, Zofran, Lasix in the ED. vital signs stable. we will admit patient for further evaluation and treatment with cardiology consulting. Hospital Course: Patient left AGAINST MEDICAL ADVICE Vital Signs/Physical Exam: Temp Pulse Resp BP Pulse Ox 97.6 F 78 14 103/68 98 12/10/21 10:52 12/10/21 10:52 12/10/21 10:52 12/10/21 10:52 12/10/21 10:52 General: Alert, In no apparent distress, Oriented x3 Laboratory Data at Discharge: WBC 5.3 K/uL (4.3-10.9) D 12/09/21 04:18 Hgb 11.1 g/dL (12.0-15.0) L 12/09/21 04:18 Hct 35.2 % (36.0-45.0) L 12/09/21 04:18 Plt Count 153 K/uL (152-406) 12/09/21 04:18 Sodium 137 mmol/L (136-145) 12/09/21 04:18 Potassium 4.6 mmol/L (3.5-5.1) 12/09/21 04:18 BUN 39 mg/dL (7-18) H 12/09/21 04:18 Creatinine 2.21 mg/dL (0.55-1.3) H 12/09/21 04:18 Glucose 131 mg/dL (74-106) H 12/09/21 04:18 Phosphorus 4.7 mg/dL (2.5-4.9) 12/09/21 04:18 Magnesium 2.7 mg/dL (1.8-2.4) H 12/09/21 04:18 Total Bilirubin 1.3 mg/dL (0.2-1.0) H 12/09/21 04:18 AST 49 U/L (15-37) H 12/09/21 04:18 ALT 51 U/L (12-78) 12/09/21 04:18 Alkaline Phosphatase 162 U/L (45-117) H 12/09/21 04:18 Lipase 126 U/L (73-393) 12/08/21 17:45 Home Medications: ALPRAZolam [Alprazolam] 1 tab PO TID 12/14/18 Amiodarone HCl [Cordarone*] 1 tab PO DAILY 12/14/18 Furosemide 20 tab PO SEECOM 12/14/18 Potassium Chloride 1 tab PO DAILY 12/14/18 Sacubitril/Valsartan [Entresto 24 mg-26 mg Tablet] 1 each PO BID 03/11/19 Aspirin 1 tab PO DAILY 12/08/21 Followup: NONE,NONE [Primary Care Provider] - Time spent managing pt's care (in minutes): 30
== END 2021-12-10 11:33 | disposition left against medical advice (07) | DRG 291 ==
LOC: ER 17:00 → ERHOLD 22:50 → 2ND 12-09 02:58
PROVIDERS: ADMIT Hospitalist; ATTEND Hospitalist
DX: I13.0 Hypertensive heart and chronic kidney disease with heart failure and stage 1 through stage 4 chronic kidney disease, or unspecified chronic kidney disease (principal); I50.23 Acute on chronic systolic (congestive) heart failure; N18.4 Chronic kidney disease, stage 4 (severe); I48.20 Chronic atrial fibrillation, unspecified; R18.8 Other ascites; R09.02 Hypoxemia; F41.9 Anxiety disorder, unspecified; K74.60 Unspecified cirrhosis of liver; Z53.29 Procedure and treatment not carried out because of patient's decision for other reasons; Z88.0 Allergy status to penicillin; Z85.3 Personal history of malignant neoplasm of breast; Z95.0 Presence of cardiac pacemaker; Z20.822 Contact with and (suspected) exposure to COVID-19
CPT/HCPCS: 36415; 71045; 74176; 76705; 80053; 81003; 81015; 83690; 83735; 83880; 84100; 84439; 84443; 85025; 96374; 96375; 99285; J1644; J1940; J2405; J3010; J3490; J7030; P9047; U0003

== ENCOUNTER 2022-05-31 18:43 | Emergency (ER) | payer OTHER ==
--- OUTSIDE RECORDS SUMMARY | 2022-05-31 18:49 | XMS REPORT | Continuity of Care Document ---
:1960 Author Organization [facility] t Address [address] [place] [address] Care Team Providers Name Role Phone Castro Blue MD Primary Care Physician CASTRO BLUE Attending Clinician Unavailable Jacquie PETIT, Loyda Dennis Attending Clinician Unavailable Mirza NAVARRO, Castro Attending Clinician Lisha Hills MD Attending Clinician Jaguar Mendiola MD Attending Clinician Tin NAVARRO, Aaron Spencer Attending Clinician [phone] Benjamin Wilson MD Attending Clinician Shamar Charles RN Attending Clinician Unavailable Varghese Bateman Attending Clinician Unavailable LAYO KESSLRE Attending Clinician Unavailable Doctor Unassigned, [place] Attending Clinician Unavailable JENNIFER COOLEY Attending Clinician Unavailable MD JENNIFER COOLEY Attending Clinician Unavailable Lori Dan Attending Clinician Provider, [facility] Attending Clinician Unavailable Ernestina Lockett Attending Clinician Hemalatha Ring RN, Mandy Attending Clinician Unavailable LILLIAN AKINS Attending Clinician Unavailable MD LILLIAN AKINS H. Attending Clinician Unavailable AARON CASTLE Admitting Clinician Unavailable MD JAGUAR MENDIOLA Admitting Clinician Unavailable LAYO KESSLER Admitting Clinician Unavailable JENNIFER COOLEY Admitting Clinician Unavailable MD JENNIFER COOLEY Admitting Clinician Unavailable LILLIAN AKINS Admitting Clinician Unavailable MD LILLIAN AKINS Admitting Clinician Unavailable Payers Payer Name Policy Type Policy Number Effective Date Expiration Date Shayna kaye MEDICARE PART A [id number] 2010 \T\ B 00:00:00 Problems Condition Condition Condition Status Onset Resolution Last Treating Co mments Source Name Details Category Date Date Treatment Clinician Date Acute Acute Disease Active Methodi decompensa decompensa 4-26 st messi heart messi heart 00:00: Hosp helen failure failure 00 l AICD at AICD at Disease Active Methodi end of end of 6-16 st battery battery 00:00: Hospita life life 00 l Cardiac Cardiac Disease Active Univers arrhythmia arrhythmia 5-25 it y of , , 00:00: [place] unspecifie unspecifie 00 Me dical d cardiac d cardiac Bran ch arrhythmia arrhythmia type type Other Other Disease Active Methodi chronic chronic 4-17 st pain pain 00:00: Hospita 00 l Hypokalemi Hypokalemi Disease Active M ethodi a a 915 st 00:00: Hospita 00 l VT VT Disease Active Methodi (ventricul (ventricul 915 st ar ar 00:00: Hospita tachycardi tachycardi 00 l a) a) Delirium Delirium Disease Active Metho di due to due to 8 st multiple multiple 00:00: Hospit a etiologies etiologies 00 l A-fib A-fib Disease Active Methodi 04-10 st 00:00: Hospita 00 l Cardiogeni Cardiogeni Disease Active M ethodi c shock c shock 04-10 st 00:00: Hospita 00 l Atrial Atrial Disease Active Methodi fibrillati fibrillati 8 st on on 00:00: Hospita 00 l Anxiety Anxiety Disease Active Methodi 8 st 00:00: Hospita 00 l Acute Acute Disease Active Methodi right right 8-19 st otitis otitis 00:00: Hospita media media 00 l Shortness Shortness Disease Active Met hodi of breath of breath 8-18 st 00:00: Hospita 00 l 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 2-22 st and and 00:00: Hospita diastolic diastolic 00 l congestive congestive heart heart failure failure Malignant [...] ents Source Name Type Date Date Clinician Apixaban Propensi Active Shortness Of Methodi ty to Breath 4-28 st adverse 00:00: Hospita reaction 00 l s to drug Sulfur Propensi Active Rash Methodi ty to 4-27 st adverse 00:00: Hospita reaction 00 l s to drug Other Propensi Active Rash Surgical Method i ty to 4-[address] adverse 00:00: Hospita reaction 00 l s Codeine Propensi Active GI Vomiting Metho di ty to Intolerance 2-22 st adverse 00:00: Hospita reaction 00 l s to drug Penicill Propensi Active Unknown - 2006-08 Highly Uni vers ins ty to See 0-08 allergic ity of adverse comments, 00:00: [place] reaction Anaphylaxis 00 Med ical s Branch Penicill Propensi Active Rash 2006-08 Method i ins ty to 0-08 st adverse 00:00: Hospita reaction 00 l s to drug Penicill Propensi Active Anaphylaxis 2006-08 Highly U nivers ins ty to 0-08 allergic ity of adverse 00:00: [place] reaction 00 Medical s Branch PENICILL Drug Active High Unknown-Cmnt 2006-08 [...] Intoleran Medic al s ceVomitin Branch g Family History Family Member Diagnosis Comments Start Date Stop Date Source Natural father Heart disease [facility] Natural mother Liver disease [facility] Social History Social Habit Start Date Stop Date Quantity Comments Source History of tobacco Current smoker [facility] Exposure to 2022-01-22 2022-02-01 Not sure University of SARS-CoV-2 (event) 00:00:00 13:53:00 [facility] Alcohol intake 2021-02-11 2021-02-11 Current Sikhism 00:00:00 00:00:00 non-drinker of Hospital alcohol (finding) Cigarettes smoked 2020-07-13 2020-07-13 [facility] [place] [facility] current (pack per 00:00:00 00:00:00 Hospita l day) - Reported Tobacco use and 2017-12-14 2017-12-14 Never used Universit y of exposure 00:00:00 00:00:00 [facility] Sex Ass[birth year] At [birth year] Sikhism 00:00:00 00:00:00 Hospital Smoking Status Start Date Stop Date Source Former smoker 2017-12-14 00:00:00 2017-12-14 [facility] Ordered F[facility] Start Stop Current Ordering Indication Dosage Frequency Signature Comments Components Source Medication Medication Date Date Medication? Clinician (SIG) Name Name sulfamethox 2021- No 1{tbl} Take 1 U nivers azole-trime 6-20 - tablet by it y of thoprim 00:00: 04:59 mouth 2 [place] 800-160 mg 00 :00 (two) Medical per tablet times Branch daily for 10 days. traMADoL 50 Yes [id number] 50mg Take 1 Univ ers mg tablet 6-15 tablet by ity o f 00:00: mouth [place] 00 every 6 Medical (six) Branch hours as needed for Pain (scale 7-10). Indication s: chronic pain ALPRAZolam Yes [id number] 2mg Take 1 U nivers 2 mg tablet 6-15 tablet by ity of 00:00: mouth 2 [place] 00 (two) Medical times Branch daily as needed for Anxiety. TAKE 1 TABLET BY MOUTH THREE TIMES DAILY NEEDED traMADoL 50 2021-0 Yes [id number] 50mg Take 1 Univ ers mg tablet 6-15 tablet by ity o f 00:00: mouth [place] 00 every 6 Medical (six) Branch hours as needed for Pain (scale 7-10). Indication s: chronic pain ALPRAZolam 2021-0 Yes [id number] 2mg Take 1 U nivers 2 mg tablet 6-15 tablet by ity of 00:00: mouth 2 [place] 00 (two) Medical times Branch daily as needed for Anxiety. TAKE 1 TABLET BY MOUTH THREE TIMES DAILY NEEDED traMADoL 50 2021-0 Yes [id number] 50mg Take 1 Univ ers mg tablet 6-15 tablet by ity o f 00:00: mouth [place] 00 every 6 Medical (six) Branch hours as needed for Pain (scale 7-10). Indication s: chronic pain ALPRAZolam 2021-0 Yes [id number] 2mg Take 1 U nivers 2 mg tablet 6-15 tablet by ity of 00:00: mouth 2 [place] 00 (two) Medical times Branch daily as needed for Anxiety. TAKE 1 TABLET BY MOUTH THREE TIMES DAILY NEEDED traMADoL 50 2021-0 Yes [id number] 50mg Take 1 Univ ers mg tablet 6-15 tablet by ity o f 00:00: mouth [place] 00 every 6 Medical (six) Branch hours as needed for Pain (scale 7-10). Indication s: chronic pain ALPRAZolam 2021-0 Yes [id number] 2mg Take 1 U nivers 2 mg tablet 6-15 tablet by ity of 00:00: mouth 2 [place] 00 (two) Medical times Branch daily as needed for Anxiety. TAKE 1 TABLET BY MOUTH THREE TIMES DAILY NEEDED metOLazone 2021-0 Yes 5mg Take 5 mg Un jennifer 5 mg tablet 5-11 by mouth. ity of 13:10: [place] 20 Medical Branch sacubitriL- 2021-0 Yes Take by Uni vers valsartan 5-11 mouth. ity of (ENTRESTO) 13:10: [place] 49-51 mg 20 Medical tablet Branch metOLazone 2021-0 Yes 5mg Take 5 mg Un jennifer 5 mg tablet 5-11 by mouth. ity of 13:10: [place] 20 Medical Branch sacubitriL- 2021-0 Yes Take by Uni vers valsartan 5-11 mouth. ity of (ENTRESTO) 13:10: [place] 49-51 mg 20 Medical tablet Branch metOLazone 2021-0 Yes 5mg Take 5 mg Un jennifer 5 mg tablet 5-11 by mouth. ity of 13:10: [address] Branch sacubitriL- 2021-0 Yes Take by Uni vers valsartan 5-11 mouth. ity of (ENTRESTO) 13:10: [place] 49-51 mg 20 Medical tablet Branch metOLazone 2021-0 Yes 5mg Take 5 mg Un jennifer 5 mg tablet 5-11 by mouth. ity of 13:10: [address] Branch sacubitriL- 0 Yes Take by Uni vers valsartan 5-11 mouth. ity of (ENTRESTO) 13:10: [place] 49-51 mg 20 Medical tablet Branch KCL 10 mEq 2021-0 Yes 10meq Take 10 Uni vers tablet 5-11 mEq by ity of 13:08: mouth. [address] KCL 10 mEq 2021-0 Yes 10meq Take 10 Uni vers tablet 5-11 mEq by ity of 13:08: mouth. [address] KCL 10 mEq 2021-0 Yes 10meq Take 10 Uni vers tablet 5-11 mEq by ity of 13:08: mouth. [address] KCL 10 mEq 2021-0 Yes 10meq Take 10 Uni vers tablet 5-11 mEq by ity of 13:08: mouth. [address] calcium-mag 0 Yes 1{tbl} QD Take 1 Me thodi nesium-zinc 5-[address] tablet 13:11: mouth Hospita 01 daily. l Lactobacill 0 Yes 1{capsu QD Take 1 M ethodi us 5-05 le} capsule by st acidophilus 13:11: mouth Hospi ta (PROBIOTIC 01 daily. l ORAL) pantoprazol 0 2021- No 40mg QD Take 1 Met hodi e 5-05 05-04 tablet (40 st (PROTONIX) 00:00: 00:00 mg total) H ospita 40 MG EC 00 :00 by mouth l tablet daily for 30 days. sacubitriL- 2021-0 2021- No 1{tbl} Q.5D Take 1 M ethodi valsartan 5-04 05-[address] (ENTRESTO) 13:11: 00:00 mouth 2 Hos deondre 49-51 mg 34 :00 (two) l tablet per times a tablet day. furosemide 2021-2021- No 60mg Q.5D Take 60 mg Methodi (LASIX) 20 - 05-[address] mg tablet 13:11: 00:00 (two) Hospit a 34 :00 times a l day. ALPRAZolam 0 Yes 2mg Q.[id number] Take 2 mg Methodi (XANAX) 2 -04 [id number] by mouth [address] MG tablet 13:11: 3D (three) Hospi ta 31 times a l day as needed for anxiety. potassium Yes 10meq QD Take 10 Meth chris chloride 5-[address] (K-DUR) 10 13:11: mouth Hospit a MEQ CR 31 daily. l tablet aspirin 325 0 Yes 325mg QD Take 325 M ethodi MG tablet 5-[address] 13:11: mouth Hospita 31 daily. l amIODarone 0 Yes 200mg QD Take 200 Me thodi (PACERONE) 5-[address] 200 MG 13:11: mouth Hospita tablet 31 daily. l metOLazone 0 Yes 5mg Take 5 mg Me thodi (ZAROXOLYN) -[address] 5 MG tablet 13:11: as needed H ospita 31 (Fluid l retention) . Take one hour prior to furosemide hydrocortis 2021-0 2021- No Q.5D Insert Met hodi one 12-[address] (ANUSOL-HC) 00:00: 04:59 rectum 2 H ospita 2.5 % 00 :00 (two) l rectal times a cream day for 30 days. furosemide 2021-0 2021- No 80mg Q.[id number] Take 1 Methodi (LASIX) 80 - 06- [id number] tablet (80 st mg tablet 00:00: 04:59 3D mg total) Ho spita 00 :00 by mouth 3 l (three) times a day for 30 days. ascorbic 2-0 202- No QD Take by Metho di acid, 4-27 04-[address] vitamin C, 08:18: 00:00 daily. Hosp helen (VITAMIN C) 55 :00 Patient l 250 MG does not tablet know amount polyethylen 2021-0 Yes [id number] 1{packe Take 1 Univers e glycol 3-06 t} Packet by ity of 3350 00:00: mouth [place] (MIRALAX) 00 every 24 Medica l 17 gram (twenty-fo Branch powder ur) hours as needed for Constipati on. polyethylen 0 Yes [id number] 1{packe Take 1 Univers e glycol 3-06 t} Packet by ity of 3350 00:00: mouth [place] (MIRALAX) 00 every 24 Medica l 17 gram (twenty-fo Branch powder ur) hours as needed for Constipati on. polyethylen 0 Yes [id number] 1{packe Take 1 Univers e glycol 3-06 t} Packet by ity of 3350 00:00: mouth [place] (MIRALAX) 00 every 24 Medica l 17 gram (twenty-fo Branch powder ur) hours as needed for Constipati on. polyethylen 2021-0 Yes [id number] 1{packe Take 1 Univers e glycol 3-06 t} Packet by ity of 3350 00:00: mouth [place] (MIRALAX) 00 every 24 Medica l 17 gram (twenty-fo Branch powder ur) hours as needed for Constipati on. dicyclomine 2021-0 Yes [id number] 20mg Take 1 Univers 20 mg 2-27 tablet by ity of tablet 00:00: mouth [place] 00 every 6 Medical (six) Branch hours as needed for Abdominal pain. dicyclomine 2021-0 Yes [id number] 20mg Take 1 Univers 20 mg 2-27 tablet by ity of tablet 00:00: mouth [place] 00 every 6 Medical (six) Branch hours as needed for Abdominal pain. dicyclomine 202-0 Yes [id number] 20mg Take 1 Univers 20 mg 2-27 tablet by ity of tablet 00:00: mouth [place] 00 every 6 Medical (six) Branch hours as needed for Abdominal pain. dicyclomine 2021-0 Yes [id number] 20mg Take 1 Univers 20 mg 2-27 tablet by ity of tablet 00:00: mouth [place] 00 every 6 Medical (six) Branch hours as needed for Abdominal pain. amiodarone 2021-0 Yes 200mg Take 200 Un jennifer 200 mg 2-22 mg by ity of tablet 10:30: mouth. [address] aspirin 325 2021-0 Yes 325mg Take 325 U nivers mg tablet 2-22 mg by ity of 10:30: mouth. [address] amiodarone 2021-0 Yes 200mg Take 200 Un jennifer 200 mg 2-22 mg by ity of tablet 10:30: mouth. [address] aspirin 325 2021-0 Yes 325mg Take 325 U nivers mg tablet 2-22 mg by ity of 10:30: mouth. [address] amiodarone 2021-0 Yes 200mg Take 200 Un jennifer 200 mg 2-22 mg by ity of tablet 10:30: mouth. [address] aspirin 325 2021-0 Yes 325mg Take 325 U nivers mg tablet 2-22 mg by ity of 10:30: mouth. [address] amiodarone 2021-0 Yes 200mg Take 200 Un jennifer 200 mg 2-22 mg by ity of tablet 10:30: mouth. [address] aspirin 325 2021-0 Yes 325mg Take 325 U nivers mg tablet 2-22 mg by ity of 10:30: mouth. [address] spironolact 2021-0 Yes .5mg Take 0.5 Un jennifer one 25 mg 2-22 mg by ity of tablet 10:30: mouth. [address] spironolact 2021-0 Yes .5mg Take 0.5 Un jennifer one 25 mg 2-22 mg by ity of tablet 10:30: mouth. [address] spironolact 2021-0 Yes .5mg Take 0.5 Un jennifer one 25 mg 2-22 mg by ity of tablet 10:30: mouth. [address] spironolact 2021-0 Yes .5mg Take 0.5 Un jennifer one 25 mg 2-22 mg by ity of tablet 10:30: mouth. [address] ALPRAZolam 2021-0 2022- No [id number] TAKE 1 Univers 2 mg tablet 2-22 06-15 TABLET BY it y of 00:00: 00:00 MOUTH [place] 00 :00 THREE Medical TIMES Branch DAILY NEEDED traMADoL 50 2020-08- No [id number] 50mg Take 1 Uni vers mg tablet 2-15 06-15 tablet by ity of 00:00: 00:00 mouth [place] 00 :00 every 6 Medical (six) Branch hours as needed for Pain (scale 7-10). Indication s: acute pain traMADoL 50 Yes acute pain 50mg Take 1 Univers mg tablet 4-10 tablet by ity o f 00:00: mouth [place] 00 every 6 Medical (six) Branch hours as needed for Pain (scale 7-10). Indication s: acute pain ALPRAZolam Yes Generalized TAKE 1 Univers 2 mg tablet 1-13 anxiety TABLET BY ity of 00:00: disorder MOUTH [place] 00 THREE Medical TIMES Branch DAILY NEEDED spironolact 2019-08 Yes .5mg Take 0.5 Un jennifer one 25 mg 0-29 mg by ity of tablet 19:32: mouth. [address] DIGOXIN Yes Take by Univers ORAL 7-10 mouth. ity of 19:00: [address] ENALAPRIL Yes Take by Unive rs MALEATE 7-10 mouth. ity of ORAL 19:00: [address] sacubitril- Yes Take by Uni vers valsartan 7-10 mouth 2 ity of (ENTRESTO) 19:00: (two) [place] 24-26 mg 17 times Medical Tab daily. Branch furosemide Yes 80mg Take 80 mg U nivers (LASIX) 80 7-10 by mouth ity o f mg tablet 19:00: daily. [address] furosemide Yes 80mg Take 80 mg U nivers (LASIX) 80 7-10 by mouth ity o f mg tablet 14:00: daily. [address] DIGOXIN Yes Take by Univers ORAL 7-10 mouth. ity of 14:00: [address] ENALAPRIL Yes Take by Unive rs MALEATE 7-10 mouth. ity of ORAL 14:00: [address] sacubitril- Yes Take by Uni vers valsartan 7-10 mouth 2 ity of (ENTRESTO) 14:00: (two) [place] 24-26 mg 17 times Medical Tab daily. Branch furosemide Yes 80mg Take 80 mg U nivers (LASIX) 80 7-10 by mouth ity o f mg tablet 14:00: daily. [address] DIGOXIN Yes Take by Univers ORAL 7-10 mouth. ity of 14:00: [address] ENALAPRIL Yes Take by Unive rs MALEATE 7-10 mouth. ity of ORAL 14:00: [address] sacubitril- Yes Take by Uni vers valsartan 7-10 mouth 2 ity of (ENTRESTO) 14:00: (two) [place] 24-26 mg 17 times Medical Tab daily. Branch furosemide Yes 80mg Take 80 mg U nivers (LASIX) 80 7-10 by mouth ity o f mg tablet 14:00: daily. [address] DIGOXIN Yes Take by Univers ORAL 7-10 mouth. ity of 14:00: [address] ENALAPRIL Yes Take by Unive rs MALEATE 7-10 mouth. ity of ORAL 14:00: [address] sacubitril- Yes Take by Uni vers valsartan 7-10 mouth 2 ity of (ENTRESTO) 14:00: (two) [place] 24-26 mg 17 times Medical Tab daily. Branch furosemide Yes 80mg Take 80 mg U nivers (LASIX) 80 7-10 by mouth ity o f mg tablet 14:00: daily. [address] DIGOXIN Yes Take by Univers ORAL 7-10 mouth. ity of 14:00: [address] ENALAPRIL Yes Take by Unive rs MALEATE 7-10 mouth. ity of ORAL 14:00: [address] sacubitril- Yes Take by Uni vers valsartan 7-10 mouth 2 ity of (ENTRESTO) 14:00: (two) [place] 24-26 mg 17 times Medical Tab daily. Branch dicyclomine Yes Abdominal 20mg Take 1 Univers (BENTYL) 20 5-07 pain, tablet by it y of mg tablet 00:00: unspecified mouth 4 [place] 00 abdominal (four) Medical location times Branch daily. OMEGA 3 2016-0 Yes None Univers ORAL 9-21 Entered ity of 20:48: [place] 28 Medical Branch OMEGA 3 Yes None Univers ORAL 9-21 Entered ity of 15:48: [address] OMEGA 3 Yes None Univers ORAL 9-21 Entered ity of 15:48: [address] OMEGA 3 Yes None Univers ORAL 9-21 Entered ity of 15:48: [address] OMEGA 3 Yes None Univers ORAL 9-21 Entered ity of 15:48: [address] Vital Signs Vital Name Observation Time Observation Value Comments Source Systolic blood 2022-02-01 18:52:00 89 mm[Hg] [facility]iver [facility] Diastolic blood 2022-02-01 18:52:00 55 mm[Hg] Unive rsity [facility] Heart rate 2022-02-01 18:52:00 79 /min [facility] Body weight 2022-02-01 18:52:00 51.937 kg [facility] BMI 2022-02-01 18:52:00 20.94 kg/m2 [facility] Systolic blood 2021-12-21 12:12:41 99 mm[Hg] [facility] pressure Diastolic blood 2021-12-21 12:12:41 66 mm[Hg] [facility] pressure Heart rate 2021-12-21 12:12:41 66 /min [facility] Body temperature 2021-12-21 12:12:41 36.17 Freya [facility] [place] [facility] Respiratory rate 2021-12-21 12:12:41 17 /min [facility] [place] [facility] Oxygen saturation in 2021-12-21 12:12:41 94 /min [facility] Arterial blood by Pulse oximetry Body weight 2021-12-21 10:31:46 52.889 kg [facility] BMI 2021-12-21 10:31:46 21.33 kg/m2 [facility] Body height 2021-12-13 17:15:00 157.5 cm [facility] Procedures Procedure Date / Time Performing Clinician Source Performed HC COMPLETE BLD COUNT 2021-12-18 06:17:00 Basia Fink [facility] W/AUTO DIFF ANTI XA, UNFRACTIONATED 2021-12-18 06:14:00 Tin, Kodavayour [facility] COMPREHENSIVE METABOLIC 2021-12-18 06:13:00 [facility] PANEL ESTIMATED GFR 2021-12-18 06:13:00 Ayala Finkanor [facility] spital SODIUM LEVEL 2021-12-17 22:05:00 [facility]A, UNFRACTIONATED 2021-12-17 18:18:00 [facility] ANTI XA, UNFRACTIONATED 2021-12-17 09:19:00 [facility] COMPREHENSIVE METABOLIC 2021-12-17 09:19:00 [facility] PANEL HC COMPLETE BLD COUNT 2021-12-17 09:19:00 [facility] W/AUTO DIFF LACTIC ACID LEVEL 2021-12-17 09:19:00 [facility] ESTIMATED GFR 2021-12-17 09:19:[facility]ABOLIC PANEL 2021-12-16 19:33:00 [facility] LACTIC ACID LEVEL 2021-12-16 19:33:00 [facility] ESTIMATED GFR 2021-12-16 19:33:00 [facility] spital COVID-19 SEROLOGY PATIENT 2021-12-16 08:03:00 [facility] SURVEILLANCE Marciano COVID-19 ANTI-SPIKE IGG 2021-12-16 08:03:00 Basil Crawley [facility] [place] [facility] ANTIBODY TITER [facility] BASIC METABOLIC PANEL 2021-12-16 07:32:00 [facility] PEPTIDE 2021-12-16 07:32:00 Tin [facility] LACTIC ACID LEVEL 2021-12-16 07:32:00 [facility] HYDROX[facility]YRATE 2021-12-16 07:32:00 [facility] 2021-12-16 07:32:00 [facility] HC COMPLETE BLD COUNT 2021-12-16 07:32:00 [facility] W/AUTO DIFF [facility] URINE CULTURE 2021-12-16 03:17:00 Juan Arguello delmis [facility] URINALYSIS SCREEN AND 2021-12-16 02:14:00 [facility], WITH REFLEX Armando TO CULTURE BASIC METABOLIC PANEL 2021-12-15 11:11:00 [facility] B NATRIURETIC PEPTIDE 2021-12-15 11:11:00 [facility] ESTIMATED GFR 2021-12-15 11:11:00 [facility] MAGNESIUM LEVEL 2021-12-15 11:11:00 Basil Crawley delmis Tariq HC COMPLETE BLD COUNT 2021-12-15 10:13:00 Basil Crawley [facility] W/AUTO DIFF Marciano TTE COMPLETE, W CONTRAST, 2021-12-14 17:10:00 [facility] W DOPPLER ([id number]) [facility] HEMOGLOBIN A1C 2021-12-14 09:37:00 [facility] ESTIMATED GFR 2021-12-14 09:37:00 [facility] COVID-19 QUALITATIVE 2021-12-14 09:37:00 [facility] BASIC METABOLIC PANEL 2021-12-14 09:37:00 [facility] B NATRIURETIC PEPTIDE 2021-12-14 09:37:00 [facility] LIPID PANEL 2021-12-14 09:37:00 [facility] CT ABDOMEN PELVIS WO 2021-12-14 03:42:58 Reinier, Lisha [facility] CONTRAST TROPONIN T 2021-12-14 01:28:00 [facility] US DUPLEX VENOUS LOWER 2021-12-14 01:25:00 [facility] EXTREMITY BILATERAL Sethuraman HC COMPLETE BLD COUNT 2021-12-13 20:00:00 [facility] W/AUTO DIFF COMPREHENSIVE METABOLIC 2021-12-13 20:00:00 [facility] PANEL TROPONIN T 2021-12-13 20:00:00 [facility] B NATRIURETIC PEPTIDE 2021-12-13 20:00:00 [facility] PARTIAL THROMBOPLASTIN 2021-12-13 20:00:00 [facility] TIME (PTT) PROTHROMBIN TIME WITH INR 2021-12-13 20:00:00 [facility] ESTIMATED GFR 2021-12-13 20:00:00 [facility] XR CHEST 2 VW 2021-12-13 19:50:53 [facility] ECG ED PRELIMINARY 2021-12-13 19:01:43 Lisha Hills [facility] INTERPRETATION ECG 12-LEAD 2021-12-13 17:56:54 [facility] EXTERNAL PROVIDER RECORDS 2020-12-23 05:01:00 Doctor Unassigned, No [facility] Plan of Care Planned Activity Planned Date Details Comments Source Future Scheduled 2022-05-09 COVID-[address] Test 07:36:46 (#1) [code = Hospital COVID-19 VACCINE (#1)] Future Scheduled 2022-05-09 Pneumococcal [facility] Test 07:36:46 Vaccine: Pediatrics Hospital (0 to 5 Years) and At-Risk Patients (6 to 64 Years) (1 - PCV) [code = Pneumococcal Vaccine: Pediatrics (0 to 5 Years) and At-Risk Patients (6 to 64 Years) (1 - PCV)] Future Scheduled 2022-05-09 Screening for [facility] Test 07:36:46 malignant neoplasm Hospital of cervix (procedure) [code = 276022652] Future Scheduled 2022-05-09 BREAST CANCER [facility] Test 07:36:46 SCREENING [code = Hospital BREAST CANCER SCREENING] Future Scheduled 2022-05-09 COLONOSCOPY [facility] Test 07:36:46 SCREENING [code = Hospital COLONOSCOPY SCREENING] Future Scheduled 2022-05-09 SHINGLES VACCINES (1 Met hodist Test 07:36:46 of 2) [code = Hospital SHINGLES VACCINES (1 of 2)] Future Scheduled 2022-05-09 HEPATITIS B VACCINES Met hodist Test 07:36:46 (1 of 3 - Risk Hospital 3-dose series) [code = HEPATITIS B VACCINES (1 of 3 - Risk 3-dose series)] Future Scheduled 2022-05-09 INFLUENZA VACCINE Method ist Test 07:36:46 [code = INFLUENZA Hospital VACCINE] Future Scheduled 2021-06-17 Depression screening Uni versity of Test 00:00:00 (procedure) [code = [facility] dical 196041138] Branch Future Scheduled 2021-02-16 INFLUENZA VACCINE Postponed from Univ ersity of Test 00:00:00 (#1) [code = 04/20/2020 [facility] INFLUENZA VACCINE (Refused) Branch (#1)] Future Scheduled 2014 Screening for University of Test 00:00:00 malignant neoplasm [place] [facility] of lung (procedure) Branch [code = 540393349] Future Scheduled 2009 Screening for occult Uni versity of Test 00:00:00 blood in feces [facility] (procedure) [code = Branch 752538475] Future Scheduled 2009 Stool DNA-based Universi ty of Test 00:00:00 colorectal cancer [facility] rosie screening Branch (procedure) [code = 808703125283526] Future Scheduled 2009 Flexible fiberoptic Univ ersity of Test 00:00:00 sigmoidoscopy [place] [facility] (procedure) [code = Branch 51253660] Future Scheduled 2009 Screening for University of Test 00:00:00 malignant neoplasm [place] [facility] of colon (procedure) Branch [code = 488362868] Future Scheduled 2009 Screening for University of Test 00:00:00 malignant neoplasm [place] [facility] of colon (procedure) Branch [code = 177355436] Future Scheduled 2009 Zoster Recombinant Unive rsity of Test 00:00:00 Vaccine (SHINGRIX) [place] [facility] ica (1 of 2) [code = Branch Zoster Recombinant Vaccine (SHINGRIX) (1 of 2)] Future Scheduled 2009-06-07 Screening for University of Test 00:00:00 malignant neoplasm [place] [facility] of cervix Branch (procedure) [code = 005019517] Future Scheduled 2007-07-25 Screening for University of Test 00:00:00 malignant neoplasm [place] [facility] of breast Branch (procedure) [code = 255040934] Future Scheduled 1978 DTaP,Tdap,and Td Univers ity of Test 00:00:00 Vaccines (1 - Tdap) [place] [facility] dical [code = Branch DTaP,Tdap,and Td Vaccines (1 - Tdap)] Future Scheduled 1965 PNEUMOCOCCAL 0-64 Univer sity of Test 00:00:00 YEARS COMBINED [place] [facility] SERIES (1 of 3 - Branch PCV13) [code = PNEUMOCOCCAL 0-64 YEARS COMBINED SERIES (1 of 3 - PCV13)] Encounters Start End Encounter Admission Attending Care Care Encounter Source Date/Time Date/Time Type Type Clinicians Facility Department ID 2022-05-10 2022-05-10 Outpatient Reshma [facility] [id number] Univers 14:00:00 14:00:00 [id number] 2022-05-10 Outpatient Reshma [facility] [id number] Univers 14:00:00 14[facility]00[facility]-02 2022-05-02 Outpatient Reshma [facility] [id number] Univers 10:00:00 10:00:00 CASTRO [id number] ity [facility] 2022-02-24 2022-02-24 Patient Jacquie, 1.2.840.1 [id number] Methodi 00:00:00 00:00:00 Outreach Loyda A 60332.1.[address] 3.430.2.7 Hospit a .3.064379 l .8 2022-02-17 2022-02-17 Patient Jacquie, 1.2.840.1 [id number] Methodi 00:00:00 00:00:00 Outreach Loyda A 48316.1.[address] 3.430.2.7 Hospit a .3.120532 l .8 2022-02-07 2022-02-07 Patient Jacquie, 1.2.840.1 [id number] Methodi 00:00:00 00:00:00 Outreach Loyda A 07100.1.[address] 3.430.2.7 Hospit a .3.762841 l .8 2022-02-06 2022-02-06 Patient Jacquie, 1.2.840.1 [id number] Methodi 00:00:00 00:00:00 Outreach Loyda A 81020.1.[address] 3.430.2.7 Hospit a .3.527399 l .8 2022-02-06 2022-02-06 [facility] 1.2.546.124 [id number] Univers 00:00:00 00:00:00 [facility] 350.1.13.10 it y of [place] 4.2.7.2.686 Mikey as MICHAEL?BLEA [phone] [address] MEDICAL OFFICE BUILDING 2022-02-01 2022-02-01 Office [facility] 1.2.840.114 [id number] Univers 15:00:00 15:15:00 Visit [facility] 350.1.13.10 it y of [place] 4.2.7.2.686 Mikey as MICHAEL?BLEA [phone] [address] MEDICAL OFFICE BUILDING 2022-02-01 2022-02-01 Outpatient R [facility] [id number] Univers 15:00:00 14:06:03 CASTRO villalta [facility] 2022-02-01 2022-02-01 [facility] 1.2.544.006 [id number] Univers 00:00:00 00:00:00 [facility] 350.1.13.10 it y of [place] 4.2.7.2.686 Mikey as MICHAEL?BLEA [phone] [address] MEDICAL OFFICE BUILDING 2022-02-01 2022-02-01 Telephone Mirza [facility] 1.2.199.656 [id number] Univers 00:00:00 00:00:00 [facility] 350.1.13.10 it y of [place] 4.2.7.2.686 Mikey as MICHAEL?BLEA [phone] Wa dic[address] OFFICE [facility] 2022-01-20 2022-01-20 Patient Jacquie, 1.2.840.1 [id number] Methodi 00:00:00 00:00:00 Outreach Loyda A 52493.1.[address] 3.430.2.7 Hospit a .3.168813 l .8 2022-01-13 2022-01-13 Patient Jacquie, 1.2.840.1 [id number] Methodi 00:00:00 00:00:00 Outreach Loyda A 06201.1.[address] 3.430.2.7 Hospit a .3.947114 l .8 2022-01-02 2022-01-02 Patient Jacquie, 1.2.840.1 [id number] Methodi 00:00:00 00:00:00 Outreach Loyda A 89975.1.[address] 3.430.2.7 Hospit a .3.023713 l .8 2021-12-27 2021-12-27 Patient Jacquie, 1.2.840.1 [id number] Methodi 00:00:00 00:00:00 Outreach Loyda A 53653.1.[address] 3.430.2.7 Hospit a .3.382329 l .8 2021-12-26 2021-12-26 Patient Jacquie, 1.2.840.1 [id number] Methodi 00:00:00 00:00:00 Outreach Loyda A 74096.1.[address] 3.430.2.7 Hospit a .3.095888 l .8 2021-12-13 2021-12-21 [facility] Lisha Hills 1.2.840.1 10 [id number] Methodi 12:23:00 13:11:00 Encounter Jaguar Mendiola 09660.1.[address] Tin, Aaron Spencer 3.430.2.7 [facility] .3.397451 l .8 2021-12-21 2021-12-21 Nurse Only Melvin, 1.2.840.1 [id number] Methodi 00:00:00 00:00:[address] 3.430.2.7 Hospit a .3.450299 l .8 2021-12-21 2021-12-21 Patient Varghese Bateman 1.2.840.1 [id number] Methodi 00:00:00 00:00:[address] 3.430.2.7 Hospit a .3.210697 l .8 2021-12-21 2021-12-21 Travel 1.2.840.1 1.2.151.602 [id number] Methodi 00:00:00 00:00:[address] 3.430.2.7 0.2.7.3.698 Ho spita .3.623249 084.8 l .8 2021-12-13 2021-12-21 Inpatient [facility], [facility] [id number] 86 [place] 00:00:00 00:00:00 KODAVAYOUR 148 Met hodi 2021-02-02 2021-02-02 Outpatient [facility], [facility] [id number] [address] [place] 00:00:00 00:00:00 NADIM 145 Method i 2021-01-27 2021-01-27 Outpatient [facility] [id number] [place] 00:00:00 00:00:00 NADIM 151 Method i 2020-12-23 2020-12-23 Orders Doctor KVNG 1.2.840.114 [id number] 00:00:00 00:00:00 Only Unassigned, ROLANDO 350.1.13.10 [facility] 4.2.7.2.686 [id number] 009 2020-12-04 2020-12-06 Inpatient [facility], [facility] [id number] 73 [place] 00:00:00 00:00:00 JENNIFER [address] 2020-12-05 2020-12-05 [facility] 1.2.358.900 [id number] 00:00:00 00:00:00 [facility] 350.1.13.10 [place] 4.2.7.2.686 Professio [phone] nal [address] One 2020-12-02 2020-12-02 Emergency [facility] 1.2.734.124 [id number] 10:56:00 12:00:00 Lori Romero 350.1.13.10 [place] 4.2.7.2.686 [place] [id number] [id number] 2020-12-02 2020-12-02 Urgent Provider, [facility] 1.2.884.542 [id number] 07:50:30 09:40:15 Care [facility] 350.1.13.10 Care [place] 4.2.7.2.686 Professio [phone] nal 044 Office [address] One 2020-12-02 2020-12-02 [facility] 1.2.881.128 [id number] 00:00:00 00:00:00 [facility] 350.1.13.10 [place] 4.2.7.2.686 Professio [phone] nal [facility] Office Building One 2020-11-30 2020-11-30 [facility] 1.2.168.807 [id number] 00:00:00 00:00:00 [facility] 350.1.13.10 [place] 4.2.7.2.686 Professio [phone] nal 044 Office [address] One 2020-11-26 2020-11-27 [facility] 1.2.840.114 [id number] 21:15:00 00:04:00 Ernestina Reyeston 350.1.13.10 [place] 4.2.7.2.686 [place] [id number] 084 2020-11-27 2020-11-27 Nurse Hemalatha CALDERON 1.2.840.114 [id number] 00:00:00 00:00:00 Triage ROLANDO Ring 350.1.13.10 [facility] 4.2.7.2.686 [id number] [id number] 2020-09-22 2020-09-22 Telephone MOLLY Blue 1.2.792.055 [id number] 00:00:00 00:00:00 [facility] 350.1.13.10 [place] 4.2.7.2.686 Professio [phone] nal 044 Office [address] One 2020-09-01 2020-09-01 Office Mirza IAJACK 1.2.840.114 [id number] 12:28:02 12:43:02 Visit [facility] 350.1.13.10 [place] 4.2.7.2.686 Professio [phone] nal 044 Office [address] One 2020-06-29 2020-07-04 Inpatient [facility], [facility] [id number] [place] 00:00:00 00:00:[address] Results Test Description Test Time Test Comments Results Result Comments Source Urine culture 2021-12-16 04:06:00 Test Item Value Reference Range Interpretation Comme nts Urine culture (test code = 3105327) SEE COMMENT Bacteriuria screen negative. Sikhism NtgahdpaZUJO-QuG-4 (COVID-19) RNA [Presence] in Respiratory specimen by TALIA with probe [id number] 08:02:04 Test Item Value Reference Range Interpretation Comments SARS-CoV-2 (COVID-19) RNA Not detected [Presence] in Respiratory specimen by TALIA with probe detection (test code = 68567-6) Whether patient is employed in a Unknown healthcare setting (test code = 89164-8) Whether the patient has symptoms Unknown related to condition of interest (test code = 42259-6) Whether the patient was Unknown hospitalized for condition of interest (test code = 32581-1) Whether the patient was admitted Unknown to intensive care unit (ICU) for condition of interest (test code = 57047-9) Whether patient resides in a Unknown congregate care setting (test code = 55531-6) status (test code = Unknown 26460-1) Date and time of symptom onset Unknown (test code = 83665-5) ECG 12 [id number] 03:40:47 Test Item Value Reference Range Interpretation Comments Ventricular rate (test code = 253) Atrial rate (test code = 255) OK interval (test code = 266) QRSD interval (test code = 260) QT interval (test code = 264) QTC interval (test code = 265) P axis 1 (test code = 267) QRS axis 1 (test code = 268) T wave axis (test code = 270) EKG impression (test Ventricular-paced code = 273) rhythm with occasional premature ventricular complexes-Abnormal ECG-In automated comparison with ECG of 02-FEB-2021 08:17,-premature ventricular complexes are now present-Vent. 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: yes Interpretation: Interpretation: abnormal Rate: ECG rate: 69 ECG rate assessment: normal Rhythm: Rhythm: paced Pacing: Type of pacing: AtrialEctopy: Ectopy: none QRS: QRS axis: Normal QRS intervals: NormalConduction: Conduction: normal ST segments: ST segments: NormalT waves: T waves: normal Lab Interpretation Abnormal (test code = 50203-1) [facility] [Presence] in Respiratory specimen by TALIA with probe [id number] 09:35:29 Test Item Value Reference Range Interpretation Comments SARS-CoV-2 (COVID-19) RNA Not detected Not-Detected [Presence] in Respiratory specimen by TALIA with probe detection (test code = 00603-7) SARS-CoV-2 (COVID-19) RNA [Presence] in Respiratory specimen by TALIA with probe [id number] 23:17:05 Test Item Value Reference Range Interpretation Comments SARS-CoV-2 (COVID-19) RNA Not detected Not-Detected [Presence] in Respiratory specimen by TALIA with probe detection (test code = 72127-3)
[2022-05-31 20:00] LABS: Urine Blood 2+ (Negative); Urine Glucose Negative (Negative); Urine Protein 1+ (Negative); Urine pH 5.5 (5.0-7.0)
--- NOTE | 2022-05-31 20:15 | RAD REPORT ---
EXAM DESCRIPTION: Manpreet Single View05/31/2022 7:53 pm CLINICAL HISTORY: Chest pain COMPARISON: November 2021 FINDINGS: The lungs appear clear of acute infiltrate. The heart is markedly enlarged. Pacemaker leads in place IMPRESSION: No acute abnormalities displayed
[2022-05-31 20:32] LABS: Calcium Oxalate Crystals- Ur Few /HPF (None Seen); Urine Crystals Unidentified Few /HPF (None Seen); Urine Mucus Slight /HPF (None Seen)
[2022-05-31] MEDS ORDERED: ONDANSETRON 4 MG/2 ML VIAL ONE ×2 (20:49→23:52)
[2022-05-31] MEDS ORDERED: FENTANYL CITR 100 MCG/2 ML ONE ×2 (20:49→23:52)
[2022-05-31 21:47] LABS: Absolute Lymphocytes (CBC) 1.4 K/uL (0.7-4.9); Hematocrit 41.8 % (36.0-45.0); Lymphocytes % 20.1 % (15.3-44.8); MCV 94.7 fL (80-100); RBC Red Blood Cell Count 4.41 M/uL (3.86-4.86)
[2022-05-31 22:05] LABS: Albumin 3.8 g/dL (3.4-5.0); Bilirubin Direct 0.5 mg/dL (0-0.2); Bilirubin Total 1.6 mg/dL (0.2-1.0); Magnesium 2.7 mg/dL (1.8-2.4); Potassium 4.1 mmol/L (3.5-5.1); Protein, Total 7.9 g/dL (6.4-8.2); Troponin High Sensitivity 27.1 pg/mL (<58.9)
--- NOTE | 2022-05-31 22:13 | RAD REPORT ---
EXAM DESCRIPTION: CT - Head C Spine Cap Wo Con - 05/31/2022 9:59 pm CLINICAL HISTORY: Head and neck injury with chest and abdominal pain status post fall TECHNIQUE: Computed axial tomography of head, neck, chest, abdomen and pelvis obtained. IV and oral contrast not requested. Coronal and sagittal reconstruction performed. All CT scans are performed using dose optimization technique as appropriate and may include automated exposure control or mA/KV adjustment according to patient size. COMPARISON: CT abdomen November 2021 FINDINGS: An intracranial bleed is not seen. The ventricles are normal in caliber. An extra-axial fluid collection is not noted. . Fluid within the sinuses/mastoids is not seen. A cervical fracture is not seen. No dislocation is noted. The evaluation of mediastinum, patricia, vessels, solid organs and bowel are limited secondary to the lac k of contrast administration. A mediastinal hematoma is not noted. A pleural effusion is not seen. A lung contusion is not present. The liver,spleen, pancreas, adrenals,kidneys and bladder do not demonstrate a traumatic injury Marked cardiomegaly with minimal pericardial effusion. Bilateral breast implants. Small amount of asc ites IMPRESSION: No acute intracranial abnormality is seen. A cervical fracture is not visualized. If the patient continues have symptoms to suggest intracrania l/spinal cord pathology MRI be recommended No traumatic abnormality involving the chest/abdomen/pelvis.
--- NOTE | 2022-05-31 22:58 | ER ---
Nurse's Notes [facility] Name: Lise Loera Age: 61 yrs Sex: Female : 1960 Arrival Date: 05/31/2022 Time: 18:47 Bed 26 Private MD: Diagnosis: Fall on same level, unspecified;Strain of muscle and tendon of back wall of thorax;Unspecified symptoms and signs involving the musculoskeletal system-FALL;Cardiomegaly;Unspecified kidney failure-Chronic Presentation: 05/31 18:47 Chief complaint: EMS states: slipped in bath tub four days ago, hurt her back, upper iw right back under shoulder blade, tried tramadol and it didn't help. Coronavirus screen: At this time, the client does not indicate any symptoms associated with coronavirus-19. Ebola Screen: Patient negative for fever greater than or equal to 101.5 degrees Fahrenheit, and additional compatible Ebola Virus Disease symptoms Patient denies exposure to infectious person. Patient denies travel to an Ebola-affected area in the 21 days before illness onset. No symptoms or risks identified at this time. Initial Sepsis Screen: Does the patient meet any 2 criteria? No. Patient's initial sepsis screen is negative. Does the patient have a suspected source of infection? No. Patient's initial sepsis screen is negative. Risk Assessment: Do you want to hurt yourself or someone else? Patient reports no desire to harm self or others. Onset of symptoms was May 27, 2022. 18:47 Method Of Arrival: EMS: [facility] iw 18:47 Acuity: ESTRELLITA 3 iw Historical: - Allergies: 18:49 Codeine; iw 18:49 Eliquis; iw 18:49 PENICILLINS; iw 18:49 Sulfa (Sulfonamide Antibiotics); iw 18:49 Tylenol; iw - PMHx: 18:49 ADD/ADHD; CHF; Pacemaker; Anxiety; Atrial Fib; CAD; cancer - skin; Cancer, Breast; iw Hypertension; Myocardial infarction; - PSHx: 18:49 Pacemaker/Defib; iw - Immunization history:: Adult Immunizations up to date. - Social history:: Smoking status: unknown. Screenin:47 Abuse screen: Denies threats or abuse. Denies injuries from another. Nutritional iw screening: No deficits noted. Tuberculosis screening: No symptoms or risk factors identified. 21:33 Fall Risk Fall in past 12 months (25 points). IV access (20 points). Mental Status- lg3 Oriented to own ability (0 pts). Total Pugh Fall Scale indicates High Risk Score (45 or more points). Fall prevention measures have been instituted. Side Rails Up X 2 Frequent Obs/Assessments Occuring As available patient and family educated on Fall Prevention Program and Strategies. Assessment: 19:47 General: Appears in no apparent distress. comfortable, Behavior is cooperative, iw anxious. Pain: Complains of pain in right scapular area Pain currently is 7 out of 10 on a pain scale. Neuro: No deficits noted. Level of Consciousness is awake, alert, obeys commands, Oriented to person, place, time, situation. Cardiovascular: No deficits noted. Denies chest pain, shortness of breath, Capillary refill < 3 seconds Clubbing of nail beds is absent JVD is absent Patient's skin is warm and dry. Respiratory: No deficits noted. Airway is patent Trachea midline Respiratory effort is even, unlabored, Respiratory pattern is regular, symmetrical. GI: No deficits noted. No signs and/or symptoms were reported involving the gastrointestinal system. Abdomen is flat, non-distended, Abd is soft and non tender X 4 quads. : No deficits noted. No signs and/or symptoms were reported regarding the genitourinary system. EENT: No deficits noted. No signs and/or symptoms were reported regarding the EENT system. Derm: No deficits noted. No signs and/or symptoms reported regarding the dermatologic system. Skin is intact, is healthy with good turgor, Skin is dry, Skin is normal, Skin temperature is warm. Musculoskeletal: No deficits noted. Reports pain in right scapular area. 20:57 Reassessment: Patient appears in no apparent distress at this time. No changes from lg3 previously documented assessment. Patient and/or family updated on plan of care and expected duration. Pain level reassessed. Patient is alert, oriented x 3, equal unlabored respirations, skin warm/dry/pink. 22:36 Reassessment: Patient appears in no apparent distress at this time. No changes from lg3 previously documented assessment. Patient and/or family updated on plan of care and expected duration. Pain level reassessed. Patient is alert, oriented x 3, equal unlabored respirations, skin warm/dry/pink. Patient states symptoms have improved. 23:33 General: pt refusing discharge until she can speak to provider at this time. notified lg3 . 23:34 Reassessment: Patient appears in no apparent distress at this time. No changes from lg3 previously documented assessment. Patient and/or family updated on plan of care and expected duration. Pain level reassessed. Patient is alert, oriented x 3, equal unlabored respirations, skin warm/dry/pink. Vital Signs: 18:47 BP 100 / 67; Pulse 85; Resp 16; Temp 98.0; Pulse Ox 93% on R/A; iw 22:36 BP 102 / 78; Pulse 75; Resp 17 S; Pulse Ox 96% on R/A; lg3 23:34 BP 109 / 76; Pulse 71; Resp 17 S; Pulse Ox 96% on R/A; lg3 ED Course: 18:47 Patient arrived in ED. iw 18:48 Triage completed. iw 18:49 Arm band placed on. iw 19:31 Major Sheridan MD is Attending Physician. adriana 19:47 Azalia Robertson, RN is Primary Nurse. iw 19:47 Patient has correct armband on for positive identification. Placed in gown. Bed in low iw position. Call light in reach. Side rails up X 1. Client placed on continuous cardiac and pulse oximetry monitoring. NIBP monitoring applied. compliance monitor on. Door closed. Noise minimized. Warm blanket given. 20:00 Urine Microscopic Only Sent. iw 21:27 Awaiting lab results. tw5 21:27 Lipase Sent. lg3 21:27 Basic Metabolic Panel Sent. lg3 21:27 CBC with Diff Sent. lg3 21:27 LFT's Sent. lg3 21:27 Magnesium Sent. lg3 21:27 NT PRO-BNP Sent. lg3 21:27 PT-INR Sent. lg3 21:27 Troponin HS Sent. lg3 21:27 Initial lab(s) drawn, by me, sent to lab. Inserted saline lock: 22 gauge in left ,using tw5 aseptic technique. Foot- Per patient demand. Blood collected. Missed attempt(s): 24 gauge in left forearm. Bleeding controlled, band aid applied, catheter tip intact. 22:56 Adam Bernard MD is Referral Physician. adriana 23:35 No provider procedures requiring assistance completed. lg3 06/01 00:06 IV discontinued, intact, bleeding controlled, No redness/swelling at site. Pressure lg3 dressing applied. Administered Medications: 05/31 21:40 Drug: fentaNYL (PF) 50 mcg Route: IVP; Site: Other; lg3 22:36 Follow up: Response: No adverse reaction; Marked relief of symptoms; RASS: Alert and lg3 Calm (0) 21:40 Drug: Zofran (Ondansetron) 4 mg Route: IVP; Site: Other; lg3 22:36 Follow up: Response: No adverse reaction lg3 23:47 Not Given (Patient Refused): traMADol 50 mg PO once lg3 06/01 00:05 Drug: Valium (diazepam) 5 mg Route: PO; lg3 00:05 Follow up: Response: No adverse reaction; Marked relief of symptoms lg3 00:05 Drug: Zofran (Ondansetron) 4 mg Route: IVP; Site: Other; lg3 00:05 Follow up: Response: No adverse reaction lg3 00:05 Drug: fentaNYL (PF) 25 mcg Route: IVP; Site: Other; lg3 00:05 Follow up: Response: No adverse reaction; Marked relief of symptoms lg3 Medication: 05/31 23:35 VIS not applicable for this client. lg3 Outcome: 22:57 Discharge ordered by MD. wright 06/01 00:06 Discharged to home ambulatory. lg3 Condition: stable Discharge instructions given to patient, Instructed on discharge instructions, follow up and referral plans. medication usage, Demonstrated understanding of instructions, follow-up care, medications, Prescriptions given X 2. 00:09 Patient left the ED. lg3 Signatures: Major Sheridan MD MD cha Williams, Irene, RN RN Katelin Garay RN RN 3 Viry Preciado tw5 Corrections: (The following items were deleted from the chart) 05/31 18:56 18:47 BP 100 / 67; Pulse 85bpm; Resp 16bpm; Pulse Ox 91% RA; [facility]
--- NOTE | 2022-05-31 22:58 | EDPHYS ---
Physician Documentation [facility] Name: Lise Loera Age: 61 yrs Sex: Female : 1960 Arrival Date: 05/31/2022 Time: 18:47 Bed 26 Private MD: ED Physician Major Sheridan HPI: 05/31 21:02 This 61 yrs old Female presents to ER via EMS with complaints of Fall Injury. adriana 21:02 Details of fall: The patient fell from an upright position, while standing. Onset: The adriana symptoms/episode began/occurred 1 week(s) ago. Associated injuries: The patient sustained upper back injury, injury to the low back. Severity of symptoms: At their worst the symptoms were mild, in the emergency department the symptoms are unchanged. The patient has not experienced similar symptoms in the past. Historical: - Allergies: 18:49 Codeine; iw 18:49 Eliquis; iw 18:49 PENICILLINS; iw 18:49 Sulfa (Sulfonamide Antibiotics); iw 18:49 Tylenol; iw - PMHx: 18:49 ADD/ADHD; CHF; Pacemaker; Anxiety; Atrial Fib; CAD; cancer - skin; Cancer, Breast; iw Hypertension; Myocardial infarction; - PSHx: 18:49 Pacemaker/Defib; iw - Immunization history:: Adult Immunizations up to date. - Social history:: Smoking status: unknown. ROS: 21:03 Constitutional: Negative for fever, chills, and weight loss, Eyes: Negative for injury, adriana pain, redness, and discharge, ENT: Negative for injury, pain, and discharge, Neck: Negative for injury, pain, and swelling, Cardiovascular: Negative for chest pain, palpitations, and edema, Respiratory: Negative for shortness of breath, cough, wheezing, and pleuritic chest pain, Abdomen/GI: Negative for abdominal pain, nausea, vomiting, diarrhea, and constipation, : Negative for injury, bleeding, discharge, and swelling, MS/Extremity: Negative for injury and deformity, Skin: Negative for injury, rash, and discoloration, Neuro: Negative for headache, weakness, numbness, tingling, and seizure, Psych: Negative for depression, anxiety, suicide ideation, homicidal ideation, and hallucinations, Allergy/Immunology: Negative for hives, rash, and allergies, Endocrine: Negative for neck swelling, polydipsia, polyuria, polyphagia, and marked weight changes, Hematologic/Lymphatic: Negative for swollen nodes, abnormal bleeding, and unusual bruising. 21:03 Back: Positive for decreased range of motion, pain at rest, pain with movement, of the right subscapular area. Exam: 21:03 Constitutional: This is a well developed, well nourished patient who is awake, alert, adriana and in no acute distress. Head/Face: Normocephalic, atraumatic. Eyes: Pupils equal round and reactive to light, extra-ocular motions intact. Lids and lashes normal. Conjunctiva and sclera are non-icteric and not injected. Cornea within normal limits. Periorbital areas with no swelling, redness, or edema. ENT: Nares patent. No nasal discharge, no septal abnormalities noted. Tympanic membranes are normal and external auditory canals are clear. Oropharynx with no redness, swelling, or masses, exudates, or evidence of obstruction, uvula midline. Mucous membranes moist. Neck: Trachea midline, no thyromegaly or masses palpated, and no cervical lymphadenopathy. Supple, full range of motion without nuchal rigidity, or vertebral point tenderness. No Meningismus. Chest/axilla: Normal chest wall appearance and motion. Nontender with no deformity. No lesions are appreciated. Cardiovascular: Regular rate and rhythm with a normal S1 and S2. No gallops, murmurs, or rubs. Normal PMI, no JVD. No pulse deficits. Respiratory: Lungs have equal breath sounds bilaterally, clear to auscultation and percussion. No rales, rhonchi or wheezes noted. No increased work of breathing, no retractions or nasal flaring. Abdomen/GI: Soft, non-tender, with normal bowel sounds. No distension or tympany. No guarding or rebound. No evidence of tenderness throughout. Female : Normal external genitalia. Skin: Warm, dry with normal turgor. Normal color with no rashes, no lesions, and no evidence of cellulitis. MS/ Extremity: Pulses equal, no cyanosis. Neurovascular intact. Full, normal range of motion. Neuro: Awake and alert, GCS 15, oriented to person, place, time, and situation. Cranial nerves II-XII grossly intact. Motor strength 5/5 in all extremities. Sensory grossly intact. Cerebellar exam normal. Normal gait. Psych: Awake, alert, with orientation to person, place and time. Behavior, mood, and affect are within normal limits. 21:03 ECG was reviewed by the Attending Physician. 21:03 Back: pain, that is mild, that is moderate, ROM is painful, with all movement, normal spinal alignment noted, CVA tenderness, is absent, vertebral tenderness, is not appreciated, muscle spasm, is appreciated in the lumbar area, left low back, left mid back, right mid back and right low back. Vital Signs: 18:47 BP 100 / 67; Pulse 85; Resp 16; Temp 98.0; Pulse Ox 93% on R/A; iw 22:36 BP 102 / 78; Pulse 75; Resp 17 S; Pulse Ox 96% on R/A; lg3 23:34 BP 109 / 76; Pulse 71; Resp 17 S; Pulse Ox 96% on R/A; lg3 MDM: 19:31 Patient medically screened. adriana 21:05 Differential diagnosis: chronic back pain, Fatigue Fracture Osteoarthritis Osteoporosis adriana ruptured disc, Scoliosis spinal injury, Ureterolithiasis vertebral fracture, Chest Wall Contusion Chest Wall Injury Rib Fracture. Differential diagnosis: abrasion, closed head injury, fracture, multiple trauma, sprain, strain. Data reviewed: vital signs, nurses notes, lab test result(s), EKG, radiologic studies, CT scan, plain films. Data interpreted: monitor tech: rate is 85 beats/min, rhythm is regular, Pulse oximetry: on room air is 93 %. Test interpretation: by ED physician or midlevel provider: ECG, plain radiologic studies. 05/31 19:30 Order name: Basic Metabolic Panel [facility] 05/31 19:30 Order name: CBC with Diff [facility] 05/31 19:30 Order name: LFT's [facility] 05/31 19:30 Order name: Magnesium [facility] 05/31 19:30 Order name: NT PRO-BNP [facility] 05/31 19:30 Order name: PT-INR [facility] 05/31 19:30 Order name: Troponin HS [facility] 05/31 19:30 Order name: Lipase [facility] 05/31 19:30 Order name: Urine Microscopic Only [facility] 05/31 20:00 Order name: Urine Dipstick-Ancillary; Complete Time: 20:52 EDMS 05/31 20:32 Order name: Urine Microscopic Only; Complete Time: 20:52 EDMS 05/31 21:59 Order name: CBC with Automated Diff; Complete Time: 22:03 EDMS 05/31 22:06 Order name: Basic Metabolic Panel; Complete Time: 22:52 EDMS 05/31 22:06 Order name: Liver (Hepatic) Function; Complete Time: 22:52 EDMS 05/31 19:30 Order name: XRAY Chest (1 view) [facility] 05/31 20:16 Order name: RAD; Complete Time: 20:52 EDMS 05/31 21:33 Order name: CT Traumagram (Head C Spine CAP wo con) 3 05/31 22:06 Order name: Troponin High Sensitivity; Complete Time: 22:52 EDMS 05/31 22:06 Order name: NT PRO-BNP; Complete Time: 22:52 EDMS 05/31 22:06 Order name: Magnesium; Complete Time: 22:52 EDMS 05/31 22:06 Order name: Lipase; Complete Time: 22:52 EDMS 05/31 22:14 Order name: CT; Complete Time: 22:52 EDMS 05/31 23:14 Order name: Protime (+INR); Complete Time: 23:28 [facility] 05/31 19:30 Order name: EKG; Complete Time: 19:32 [facility] 05/31 19:30 Order name: Cardiac monitoring; Complete Time: 20:35 [facility] 05/31 19:30 Order name: EKG - Nurse/Tech; Complete Time: 20:35 [facility] 05/31 19:30 Order name: IV Saline Lock; Complete Time: 20:35 [facility] 05/31 19:30 Order name: Labs collected and sent; Complete Time: 21:40 [facility] 05/31 19:30 Order name: O2 Per Protocol; Complete Time: 20:35 [facility] 05/31 19:30 Order name: O2 Sat Monitoring; Complete Time: 20:35 [facility] 05/31 19:30 Order name: Urine Dipstick-Ancillary (obtain specimen); Complete Time: 20:00 [facility] EC:03 Rate is 77 beats/min. Rhythm is regular. QRS [place] is Normal. IA interval is normal. QT adriana interval is normal. No Q waves. T waves are Normal. No ST changes noted. Clinical impression: Abnormal EKG without significant change and No evidence of ischemia. Interpreted by me. Reviewed by me. Administered Medications: 21:40 Drug: fentaNYL (PF) 50 mcg Route: IVP; Site: Other; lg3 22:36 Follow up: Response: No adverse reaction; Marked relief of symptoms; RASS: Alert and lg3 Calm (0) 21:40 Drug: Zofran (Ondansetron) 4 mg Route: IVP; Site: Other; lg3 22:36 Follow up: Response: No adverse reaction lg3 23:47 Not Given (Patient Refused): traMADol 50 mg PO once lg3 06/01 00:05 Drug: Valium (diazepam) 5 mg Route: PO; lg3 00:05 Follow up: Response: No adverse reaction; Marked relief of symptoms lg3 00:05 Drug: Zofran (Ondansetron) 4 mg Route: IVP; Site: Other; lg3 00:05 Follow up: Response: No adverse reaction lg3 00:05 Drug: fentaNYL (PF) 25 mcg Route: IVP; Site: Other; lg3 00:05 Follow up: Response: No adverse reaction; Marked relief of symptoms lg3 Disposition Summary: 05/31/22 22:57 Discharge Ordered Location: Home adriana Problem: new adriana Symptoms: have improved adriana Condition: Stable adriana Diagnosis - Fall on same level, unspecified adriana - Strain of muscle and tendon of back wall of thorax adriana - Unspecified symptoms and signs involving the musculoskeletal system - FALL adriana - Cardiomegaly adriana - Unspecified kidney failure - Chronic adriana Followup: adriana - With: Private Physician - When: 2 - 3 days - Reason: Recheck today's complaints, Re-evaluation by your physician Followup: adriana - With: - When: 2 - 3 days - Reason: Recheck today's complaints, Continuance of care, Re-evaluation by your physician Discharge Instructions: - Discharge Summary Sheet adriana - Fall Prevention in the Home, Adult adriana - Fall Prevention in the Home, Adult, [id number] adriana - Chronic Kidney Disease, Adult, [id number] adriana Forms: - Medication Reconciliation Form adriana - Thank You Letter adriana - Antibiotic Education adriana - Prescription Opioid Use adriana Prescriptions: - Tramadol 50 mg Oral Tablet - take 1 tablet by ORAL route every 8 hours as needed; 20 tablet; Refills: 0, adriana Product Selection Permitted - Cyclobenzaprine 5 mg Oral Tablet - take 1 tablet by ORAL route 3 times per day As needed; 15 tablet; Refills: 0, adriana Product Selection Permitted Signatures: Dispatcher [employer] Major Ward, MD MD adriana Marcelo, Azalia, RN RN iw Katelin Garay RN RN [email or web address] Viry Preciado 5
[2022-05-31 23:14] LABS: Protime INR 1.28
[2022-05-31] MEDS ORDERED: TRAMADOL HCL 50 MG TAB ONE (23:30)
[2022-05-31] MEDS ORDERED: DIAZEPAM 5 MG TABLET ONE ×2 (23:51→23:59)
[2022-06-01 00:41] VITALS: TEMP 98
[2022-06-01 00:47] VITALS: O2SAT 96
[2022-06-01 00:53] VITALS: BP 109/76
--- NOTE | 2022-06-01 07:36 | EKG ---
Test Date: 2022-05-31 Test Time: 20:25:06 Sample Distributor: MERY MEASUREMENT RESULTS: Intervals: Rate: 77 RI: 120 QRSD: 186 QT: 490 QTc: 554 [place]: P: 81 RI: 120 QRS: 116 T: 54 INTERPRETIVE STATEMENTS: Electronic ventricular pacemaker Compared to ECG 11/10/2021 10:01:47 No significant changes Electronically Signed On 06-01-22 07:35:08 CDT by Juma Dickey
--- NOTE | 2022-06-01 14:54 | EKG ---
Test Date: 2022-05-31 Test Time: 20:25:52 Electric Cutter Operator: MERY MEASUREMENT RESULTS: Intervals: Rate: 77 ND: 120 QRSD: 190 QT: 486 QTc: 549 [place]: P: 60 ND: 120 QRS: -63 T: 48 INTERPRETIVE STATEMENTS: Electronic ventricular pacemaker Compared to ECG 05/31/2022 20:25:06 No significant changes Electronically Signed On 06-01-22 14:53:33 CDT by Adam Bernard
== END 2022-06-01 00:09 | disposition home or self-care (01) ==
LOC: ER 18:43
DX: S29.012A Strain of muscle and tendon of back wall of thorax, initial encounter (principal); W18.30XA Fall on same level, unspecified, initial encounter; W18.2XXA Fall in (into) shower or empty bathtub, initial encounter; R29.91 Unspecified symptoms and signs involving the musculoskeletal system; I13.0 Hypertensive heart and chronic kidney disease with heart failure and stage 1 through stage 4 chronic kidney disease, or unspecified chronic kidney disease; I50.9 Heart failure, unspecified; N18.9 Chronic kidney disease, unspecified; I48.91 Unspecified atrial fibrillation; I25.10 Atherosclerotic heart disease of native coronary artery without angina pectoris; I25.2 Old myocardial infarction; F41.9 Anxiety disorder, unspecified; Z95.0 Presence of cardiac pacemaker; Z85.828 Personal history of other malignant neoplasm of skin; Z85.3 Personal history of malignant neoplasm of breast; Z88.0 Allergy status to penicillin; Z88.2 Allergy status to sulfonamides; Z88.5 Allergy status to narcotic agent; Z88.6 Allergy status to analgesic agent; Z88.8 Allergy status to other drugs, medicaments and biological substances
CPT/HCPCS: 93005 ×2; 85025; 80048; 36415; 83735; 85610; 80076; 84484; 83690; 83880; 70450; 71250; 72125; 71045; 96375; 96374; 99284; J3010 ×2; J2405 ×2; 81003; 81015

== ENCOUNTER 2022-10-22 02:23 | Emergency (ER) | payer OTHER ==
--- OUTSIDE RECORDS SUMMARY | 2022-10-22 02:30 | XMS REPORT | Continuity of Care Document ---
:1960 Author Organization [facility] t Address [address] [place] [address] [address] [place] [address] Care Team Providers Name Role Phone Andrzej Blue MD Primary Care Physician ANDRZEJ BLUE Attending Clinician Unavailable Andrzej Blue MD Attending Clinician ROSA MARIA MONTERO Attending Clinician Unavailable Rosa Maria Montero MD Attending Clinician Unknown, Attending Attending Clinician Unavailable Doctor Unassigned, Dibble Attending Clinician Unavailable Loyda Dhillon RN Attending Clinician Unavailable Lisha Hills MD Attending Clinician Jaguar Mendiola MD Attending Clinician Tin NAVARRO, Aaron Spencer Attending Clinician [phone] Benjamin Wilson MD Attending Clinician Shamar Charles RN Attending Clinician Unavailable Varghese Bateman Attending Clinician Unavailable MONTSERRAT MURRELL Attending Clinician Unavailable NIKOS FERREIRA Attending Clinician Unavailable Nikos Ferreira MD Attending Clinician YULI PYLE Attending Clinician Unavailable Yuli Pyle DO Attending Clinician LAYO KESSLER Attending Clinician Unavailable JENNIFER COOLEY Attending Clinician Unavailable MD JENNIFER COOLEY Attending Clinician Unavailable Lori Dan Attending Clinician Provider, [facility] Attending Clinician Unavailable Silvano Young Attending Clinician SILVANO STEINBERG Attending Clinician Unavailable Ernestina Lockett Attending Clinician Hemalatha Ring RN, Mandy Attending Clinician Unavailable Consuelo Gee MD Attending Clinician CONSUELO GEE Attending Clinician Unavailable LILLIAN AKINS Attending Clinician Unavailable MD LILLIAN AKINS Attending Clinician Unavailable LINA VÁZQUEZ Attending Clinician Unavailable AARON CASTLE Admitting Clinician Unavailable MD JAGURA MENDIOLA Admitting Clinician Unavailable NIKOS FERREIRA Admitting Clinician Unavailable YULI PYLE Admitting Clinician Unavailable LAYO KESSLER Admitting Clinician Unavailable JENNIFER COOLEY Admitting Clinician Unavailable MD JENNIFER COOLEY Admitting Clinician Unavailable LILLIAN AKINS Admitting Clinician Unavailable MD LILLIAN AKINS Admitting Clinician Unavailable Payers Payer Name Policy Type Policy Number Effective Date Expiration Date Shayna kaye MEDICARE PART A [id number] 2010 \T\ B 00:00:00 Problems Condition Condition [...] Hypokalemi Disease Active M ethodi a a 9-15 st 00:00: Hospita 00 l VT VT Disease Active Methodi (ventricul (ventricul 9-15 st ar ar 00:00: Hospita tachycardi tachycardi 00 l a) a) Delirium Delirium Disease Active Metho di due to due to 823 st multiple multiple 00:00: Hospit a etiologies etiologies 00 l A-fib A-fib Disease Active Methodi 8 st 00:00: Hospita 00 l Cardiogeni Cardiogeni Disease Active M ethodi c shock c shock 04-10 st 00:00: Hospita 00 l Atrial Atrial Disease Active Methodi fibrillati fibrillati 8 st on on 00:00: Hospita 00 l Anxiety Anxiety Disease Active Methodi 8 st 00:00: Hospita 00 l Acute Acute Disease Active Methodi right right 04-07 st otitis otitis 00:00: Hospita media media 00 l Shortness Shortness Disease Active Met hodi of breath of breath 818 st 00:00: Hospita 00 l 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 2-22 st and and 00:00: Hospita diastolic diastolic 00 l congestive congestive heart heart failure failure Malignant Malignant Disease Active 2006-08 Uni vers neoplasm neoplasm 1-15 ity of of of 00:00: [place] lower-inne lower-inne 00 Me dical r quadrant r quadrant Br anch of female of female breast breast Generalize Generalize Disease Active 2006-08 U nivers d anxiety d anxiety 0-08 ity of disorder disorder 00:00: Medical Branch Allergies, Adverse Reactions, Alerts Allergy Allergy Status Severity Reaction(s) Onset Inactive Treating Comm ents Source Name Type Date Date Clinician CIPROFLO DRUG Active Swelling 2021-08 Univer s XACIN INGREDI 2-22 ity of 00:00: Medical Branch Ciproflo Propensi Active Swelling 2021-08 Difficult U nivers xacin ty to 2-22 y ity of adverse 00:00: breathing [place] reaction 00 Medical s Branch Apixaban Propensi Active Shortness Of Methodi ty to Breath 4-28 st adverse 00:00: Hospita reaction 00 l s to drug APIXABAN DRUG Active High Anaphylaxis Uni vers INGREDI 4-28 ity of 00:00: [place] 00 Medical Branch Apixaban Propensi Active Shortness of Univers ty to Breath 4-28 ity of adverse 00:00: [place] reaction 00 Medical s Branch Sulfur Propensi Active Rash Methodi (Do Not ty to 12-14 st Use For adverse 00:00: Hospita Sulfa reaction 00 l Drugs) s to drug SULFUR DRUG Active Low Rash Univers INGREDI 4- ity of 00:00: [place] 00 Medical Branch Sulfur Propensi Active Rash Univers ty to 4 ity of adverse 00:00: [place] reaction 00 Medical s Branch Other Propensi Active Rash Surgical Method i ty to 12-[address] adverse 00:00: Hospita reaction 00 l s Codeine Propensi Active GI Vomiting Metho di ty to Intolerance 10-11 st adverse 00:00: Hospita reaction 00 l s to drug Penicill Propensi Active Rash 2006-08 Method i ins ty to 0-08 st adverse 00:00: Hospita reaction 00 l s to drug Penicill Propensi Active Unknown - 2006-08 Highly Uni vers ins ty to See 0-08 allergic ity of adverse comments, 00:00: [place] reaction Anaphylaxis 00 Med ical s Branch Penicill Propensi Active Anaphylaxis 2006-08 Highly U nivers ins ty to 0-08 allergic ity of adverse 00:00: [place] reaction 00 Medical s Branch PENICILL Drug Active High Unknown-Cmnt 2006-08 Un jennifer INS Class 0-08 ity of 00:00: [place] 00 Medical Branch CODEINE DRUG Active Med NAUSEA ONLY 2006-08 Univ ers INGREDI 0-08 ity of 00:00: [place] 00 Medical Branch Penicill Propensi Active Rash 2006-08 Highly Univer s ins ty to 0-08 allergic ity of adverse 00:00: [place] reaction 00 Medical s Branch Codeine Propensi Active Nausea Only 2006-08 Other Un jennifer ty to 0-08 reaction( ity of adverse 00:00: s): GI [place] reaction 00 Intoleran Medic al s ceVomitin Branch g Family History Family Member Diagnosis Comments Start Date Stop Date Source Natural father Heart disease [facility] Natural mother Liver disease [facility] Social History Social Habit Start Date Stop Date Quantity Comments Source History of tobacco Current smoker Un iversity of use [facility] Exposure to 2022-09-01 2022-09-11 Not sure University SARS-CoV-2 (event) 00:00:00 09:09:00 [place] [facility] Tobacco use and 2022-08-09 2022-08-09 Smokeless Universit y of exposure 00:00:00 00:00:00 tobacco non-user [facility] Alcohol intake 2021-02-11 2021-02-11 Current [employer] 00:00:00 00:00:00 non-drinker of Hospital alcohol (finding) Cigarettes smoked 2020-07-13 2020-07-[address] current (pack per 00:00:00 00:00:00 Hospita l day) - Reported Sex [birth year] At [birth year] [employer] 00:00:00 00:00:00 [facility] Smoking Status Start Date Stop Date Source Ex-smoker 2022-08-09 00:00:00 2022-08-09 [facility] [place] [facility] Medications Ordered Filled Start Stop Current Ordering Indication Dosage Frequency Signature Comments Components Source Medication Medication Date Date Medication? Clinician (SIG) Name Name permethrin 2022- Yes [id number] Apply to Univers 5 % cream 10-16 area(s) ity of 00:00: 05:59 once now [place] 00 :00 for 1 Medical dose. Branch hydrocortis Yes Apply to Un jennifer one 2.5 % 1-23 area(s) 2 ity o f cream 00:00: (two) [place] 00 times Medical daily. Branch hydrocortis 2022-0 Yes Apply to Un jennifer one 2.5 % 1-23 area(s) 2 ity o f cream 00:00: (two) [place] 00 times Medical daily. Branch hydrocortis Yes Apply to Un jennifer one 2.5 % 1-23 area(s) 2 ity o f cream 00:00: (two) [place] 00 times Medical daily. Branch permethrin 2022- Yes [id number] Apply to Univers 5 % cream -09-12 area(s) ity of 00:00: 05:59 once now [place] 00 :00 for 1 Medical dose. Branch permethrin 2022- Yes [id number] Apply to Univers 5 % cream 09-11 area(s) ity of 00:00: 05:59 once now [place] 00 :00 for 1 Medical dose. Branch sulfamethox 2021-08 Yes [id number] 1{tbl} Take 1 Univers azole-trime 2-22 tablet by ity of thoprim 00:00: mouth in [place] (BACTRIM 00 the Medical DS) 800-160 morning Branc h mg per and 1 tablet tablet in the evening. sulfamethox 2021-08 Yes [id number] 1{tbl} Take 1 Univers azole-trime 2-22 tablet by ity of thoprim 00:00: mouth in [place] (BACTRIM 00 the Medical DS) 800-160 morning Branc h mg per and 1 tablet tablet in the evening. sulfamethox 2021-08 Yes [id number] 1{tbl} Take 1 Univers azole-trime 2-22 tablet by ity of thoprim 00:00: mouth in [place] (BACTRIM 00 the Medical DS) 800-160 morning Branc h mg per and 1 tablet tablet in the evening. sulfamethox 2021-08 Yes [id number] 1{tbl} Take 1 Univers azole-trime 2-22 tablet by ity of thoprim 00:00: mouth in [place] (BACTRIM 00 the Medical DS) 800-160 morning Branc h mg per and 1 tablet tablet in the evening. sulfamethox 2021-08 Yes [id number] 1{tbl} Take 1 Univers azole-trime 2-22 tablet by ity of thoprim 00:00: mouth in [place] (BACTRIM 00 the Medical DS) 800-160 morning Branc h mg per and 1 tablet tablet in the evening. sulfamethox 2021-08 Yes [id number] 1{tbl} Take 1 Univers azole-trime 2-22 tablet by ity of thoprim 00:00: mouth in [place] (BACTRIM 00 the Medical DS) 800-160 morning Branc h mg per and 1 tablet tablet in the evening. sulfamethox 2021-08 Yes [id number] 1{tbl} Take 1 Univers azole-trime 2-22 tablet by ity of thoprim 00:00: mouth in [place] (BACTRIM 00 the Medical DS) 800-160 morning Branc h mg per and 1 tablet tablet in the evening. ciprofloxac 2021-08 Yes [id number] 250mg Take 1 Univers in HCl 2-21 tablet by ity of (CIPRO) 250 00:00: mouth [place] mg tablet 00 every 12 Medica l (twelve) Branch hours. ciprofloxac 2021-08 Yes [id number] 250mg Take 1 Univers in HCl 2-21 tablet by ity of (CIPRO) 250 00:00: mouth [place] mg tablet 00 every 12 Medica l (twelve) Branch hours. ciprofloxac 2021-08 Yes [id number] 250mg Take 1 Univers in HCl 2-21 tablet by ity of (CIPRO) 250 00:00: mouth [place] mg tablet 00 every 12 Medica l (twelve) Branch hours. ciprofloxac 2021-08 Yes [id number] 250mg Take 1 Univers in HCl 2-21 tablet by ity of (CIPRO) 250 00:00: mouth [place] mg tablet 00 every 12 Medica l (twelve) Branch hours. ciprofloxac 2021-08 Yes [id number] 250mg Take 1 Univers in HCl 2-21 tablet by ity of (CIPRO) 250 00:00: mouth [place] mg tablet 00 every 12 Medica l (twelve) Branch hours. ciprofloxac 2021-08 Yes [id number] 250mg Take 1 Univers in HCl 2-21 tablet by ity of (CIPRO) 250 00:00: mouth [place] mg tablet 00 every 12 Medica l (twelve) Branch hours. ciprofloxac 2021-08 Yes [id number] 250mg Take 1 Univers in HCl 2-21 tablet by ity of (CIPRO) 250 00:00: mouth [place] mg tablet 00 every 12 Medica l (twelve) Branch hours. ciprofloxac 2021-08 Yes [id number] 250mg Take 1 Univers in HCl 2-21 tablet by ity of (CIPRO) 250 00:00: mouth [place] mg tablet 00 every 12 Medica l (twelve) Branch hours. ciprofloxac 2021-08 Yes [id number] 250mg Take 1 Univers in HCl 2-21 tablet by ity of (CIPRO) 250 00:00: mouth [place] mg tablet 00 every 12 Medica l (twelve) Branch hours. ALPRAZolam 2021-08 Yes [id number] 2mg Take 1 U nivers 2 mg tablet 0-24 tablet by ity of 00:00: mouth (two) Medical times Branch daily as needed for Sleep or Anxiety. ALPRAZolam 2021-08 Yes [id number] 2mg Take 1 U nivers 2 mg tablet 0-24 tablet by ity of 00:00: mouth 2 (two) Medical times Branch daily as needed for Sleep or Anxiety. ALPRAZolam 2021-08 Yes [id number] 2mg Take 1 U nivers 2 mg tablet 0-24 tablet by ity of 00:00: mouth (two) Medical times Branch daily as needed for Sleep or Anxiety. ALPRAZolam 2021-08 Yes [id number] 2mg Take 1 U nivers 2 mg tablet 0-24 tablet by ity of 00:00: mouth (two) Medical times Branch daily as needed for Sleep or Anxiety. ALPRAZolam 2021-08 Yes [id number] 2mg Take 1 U nivers 2 mg tablet 0-24 tablet by ity of 00:00: mouth (two) Medical times Branch daily as needed for Sleep or Anxiety. ALPRAZolam 2021-08 Yes [id number] 2mg Take 1 U nivers 2 mg tablet 0-24 tablet by ity of 00:00: mouth (two) Medical times Branch daily as needed for Sleep or Anxiety. ALPRAZolam 2021-08 Yes [id number] 2mg Take 1 U nivers 2 mg tablet 0-24 tablet by ity of 00:00: mouth (two) Medical times Branch daily as needed for Sleep or Anxiety. ALPRAZolam 2021-08 Yes [id number] 2mg Take 1 U nivers 2 mg tablet 0-24 tablet by ity of 00:00: mouth (two) Medical times Branch daily as needed for Sleep or Anxiety. ALPRAZolam 2021-08 Yes [id number] 2mg Take 1 U nivers 2 mg tablet 0-24 tablet by ity of 00:00: mouth 2 (two) Medical times Branch daily as needed for Sleep or Anxiety. ALPRAZolam 2021-08 Yes [id number] 2mg Take 1 U nivers 2 mg tablet 0-24 tablet by ity of 00:00: mouth (two) Medical times Branch daily as needed for Sleep or Anxiety. ALPRAZolam 2021-08 Yes [id number] 2mg Take 1 U nivers 2 mg tablet 0-24 tablet by ity of 00:00: mouth (two) Medical times Branch daily as needed for Sleep or Anxiety. ALPRAZolam 2021-08 Yes [id number] 2mg Take 1 U nivers 2 mg tablet 0-24 tablet by ity of 00:00: mouth (two) Medical times Branch daily as needed for Sleep or Anxiety. ALPRAZolam 2021-08 Yes [id number] 2mg Take 1 U nivers 2 mg tablet 0-24 tablet by ity of 00:00: mouth (two) Medical times Branch daily as needed for Sleep or Anxiety. ALPRAZolam 2021-08 Yes [id number] 2mg Take 1 U nivers 2 mg tablet 0-17 tablet by ity of 00:00: mouth (two) Medical times Branch daily as needed for Anxiety. TAKE 1 TABLET BY MOUTH THREE TIMES DAILY NEEDED ALPRAZolam 2021-08 Yes [id number] 2mg Take 1 U nivers 2 mg tablet 0-17 tablet by ity of 00:00: mouth (two) Medical times Branch daily as needed for Anxiety. TAKE 1 TABLET BY MOUTH THREE TIMES DAILY NEEDED ALPRAZolam 2021-08 Yes [id number] 2mg Take 1 U nivers 2 mg tablet 0-17 tablet by ity of 00:00: mouth (two) Medical times Branch daily as needed for Anxiety. TAKE 1 TABLET BY MOUTH THREE TIMES DAILY NEEDED ALPRAZolam 2021-08 Yes [id number] 2mg Take 1 U nivers 2 mg tablet 0-17 tablet by ity of 00:00: mouth (two) Medical times Branch daily as needed for Anxiety. TAKE 1 TABLET BY MOUTH THREE TIMES DAILY NEEDED ALPRAZolam 2021-08 Yes [id number] 2mg Take 1 U nivers 2 mg tablet 0-17 tablet by ity of 00:00: mouth (two) Medical times Branch daily as needed for Anxiety. TAKE 1 TABLET BY MOUTH THREE TIMES DAILY NEEDED ALPRAZolam 2021-08 [id number] 2mg Take 1 Univers 2 mg tablet 0-17 10-24 tablet by it y of 00:00: 00:00 mouth 2 [place] 00 :00 (two) Medical times Branch daily as needed for Anxiety. TAKE 1 TABLET BY MOUTH THREE TIMES DAILY NEEDED cyclobenzap 2021-08 Yes Univer s rine 5 mg 0-14 ity of tablet 00:00: [place] Medical Branch cyclobenzap 2021-08 Yes Univer s rine 5 mg 0-14 ity of tablet 00:00: [place] [facility] cyclobenzap 2021-08 Yes Univer s rine 5 mg 0-14 ity of tablet 00:00: [place] [facility] cyclobenzap 2021-08 Yes Univer s rine 5 mg 0-14 ity of tablet 00:00: [place] [facility] cyclobenzap 2021-08 Yes Univer s rine 5 mg 0-14 ity of tablet 00:00: [place] [facility] cyclobenzap 2021-08 Yes Univer s rine 5 mg 0-14 ity of tablet 00:00: [place] [facility] cyclobenzap 2021-08 Yes Univer s rine 5 mg 0-14 ity of tablet 00:00: [place] [facility] cyclobenzap 2021-08 Yes Univer s rine 5 mg 0-14 ity of tablet 00:00: [place] [facility] cyclobenzap 2021-08 Yes Univer s rine 5 mg 0-14 ity of tablet 00:00: [place] [address] Medical Branch sulfamethox 2021- No 1{tbl} Take 1 U nivers azole-trime 6-20 - tablet by it y 00:00: 04:59 mouth 2 [place] 800-160 mg 00 :00 (two) Medical per tablet times Branch daily for 10 days. traMADoL 50 Yes [id number] 50mg Take 1 Univ ers mg tablet 6-15 tablet by ity o f 00:00: mouth [place] 00 every 6 Medical (six) Branch hours as needed for Pain (scale 7-10). Indication s: chronic pain ALPRAZolam Yes [id number] 2mg Take 1 U nivers 2 mg tablet 6-15 tablet by ity of 00:00: mouth 2 [place] 00 (two) Medical times Branch daily as needed for Anxiety. TAKE 1 TABLET BY MOUTH THREE TIMES DAILY NEEDED traMADoL 50 Yes [id number] 50mg Take 1 Univ ers mg tablet 6-15 tablet by ity o f 00:00: mouth [place] 00 every 6 Medical (six) Branch hours as needed for Pain (scale 7-10). Indication s: chronic pain ALPRAZolam Yes [id number] 2mg Take 1 U nivers 2 mg tablet 6-15 tablet by ity of 00:00: mouth 2 [place] 00 (two) Medical times Branch daily as needed for Anxiety. TAKE 1 TABLET BY MOUTH THREE TIMES DAILY NEEDED traMADoL 50 Yes [id number] 50mg Take 1 Univ ers mg tablet 6-15 tablet by ity o f 00:00: mouth [place] 00 every 6 Medical (six) Branch hours as needed for Pain (scale 7-10). Indication s: chronic pain ALPRAZolam Yes [id number] 2mg Take 1 U nivers 2 mg tablet 6-15 tablet by ity of 00:00: mouth 2 [place] 00 (two) Medical times Branch daily as needed for Anxiety. TAKE 1 TABLET BY MOUTH THREE TIMES DAILY NEEDED traMADoL 50 Yes [id number] 50mg Take 1 Univ ers mg tablet 6-15 tablet by ity o f 00:00: mouth [place] 00 every 6 Medical (six) Branch hours as needed for Pain (scale 7-10). Indication s: chronic pain ALPRAZolam Yes [id number] 2mg Take 1 U nivers 2 mg tablet 6-15 tablet by ity of 00:00: mouth 2 [place] 00 (two) Medical times Branch daily as needed for Anxiety. TAKE 1 TABLET BY MOUTH THREE TIMES DAILY NEEDED traMADoL 50 Yes [id number] 50mg Take 1 Univ ers mg tablet 6-15 tablet by ity o f 00:00: mouth [place] 00 every 6 Medical (six) Branch hours as needed for Pain (scale 7-10). Indication s: chronic pain traMADoL 50 0 Yes [id number] 50mg Take 1 Univ ers mg tablet 6-15 tablet by ity o f 00:00: mouth [place] 00 every 6 Medical (six) Branch hours as needed for Pain (scale 7-10). Indication s: chronic pain traMADoL 50 Yes [id number] 50mg Take 1 Univ ers mg tablet 6-15 tablet by ity o f 00:00: mouth [place] 00 every 6 Medical (six) Branch hours as needed for Pain (scale 7-10). Indication s: chronic pain traMADoL 50 2-0 Yes [id number] 50mg Take 1 Univ ers mg tablet 6-15 tablet by ity o f 00:00: mouth [place] 00 every 6 Medical (six) Branch hours as needed for Pain (scale 7-10). Indication s: chronic pain traMADoL 50 2021-0 Yes [id number] 50mg Take 1 Univ ers mg tablet 6-15 tablet by ity o f 00:00: mouth [place] 00 every 6 Medical (six) Branch hours as needed for Pain (scale 7-10). Indication s: chronic pain traMADoL 50 2021-0 Yes [id number] 50mg Take 1 Univ ers mg tablet 6-15 tablet by ity o f 00:00: mouth [place] 00 every 6 Medical (six) Branch hours as needed for Pain (scale 7-10). Indication s: chronic pain traMADoL 50 2021-0 Yes [id number] 50mg Take 1 Univ ers mg tablet 6-15 tablet by ity o f 00:00: mouth [place] 00 every 6 Medical (six) Branch hours as needed for Pain (scale 7-10). Indication s: chronic pain traMADoL 50 2021-0 Yes [id number] 50mg Take 1 Univ ers mg tablet 6-15 tablet by ity o f 00:00: mouth [place] 00 every 6 Medical (six) Branch hours as needed for Pain (scale 7-10). Indication s: chronic pain traMADoL 50 2021-0 Yes [id number] 50mg Take 1 Univ ers mg tablet 6-15 tablet by ity o f 00:00: mouth [place] 00 every 6 Medical (six) Branch hours as needed for Pain (scale 7-10). Indication s: chronic pain traMADoL 50 2-0 Yes [id number] 50mg Take 1 Univ ers mg tablet 6-15 tablet by ity o f 00:00: mouth [place] 00 every 6 Medical (six) Branch hours as needed for Pain (scale 7-10). Indication s: chronic pain traMADoL 50 2-0 Yes [id number] 50mg Take 1 Univ ers mg tablet 6-15 tablet by ity o f 00:00: mouth [place] 00 every 6 Medical (six) Branch hours as needed for Pain (scale 7-10). Indication s: chronic pain traMADoL 50 2-0 Yes [id number] 50mg Take 1 Univ ers mg tablet 6-15 tablet by ity o f 00:00: mouth [place] 00 every 6 Medical (six) Branch hours as needed for Pain (scale 7-10). Indication s: chronic pain traMADoL 50 2021-0 Yes [id number] 50mg Take 1 Univ ers mg tablet 6-15 tablet by ity o f 00:00: mouth [place] 00 every 6 Medical (six) Branch hours as needed for Pain (scale 7-10). Indication s: chronic pain traMADoL 50 2021-0 Yes [id number] 50mg Take 1 Univ ers mg tablet 6-15 tablet by ity o f 00:00: mouth [place] 00 every 6 Medical (six) Branch hours as needed for Pain (scale 7-10). Indication s: chronic pain traMADoL 50 2021-0 Yes [id number] 50mg Take 1 Univ ers mg tablet 6-15 tablet by ity o f 00:00: mouth [place] 00 every 6 Medical (six) Branch hours as needed for Pain (scale 7-10). Indication s: chronic pain traMADoL 50 2021-0 Yes [id number] 50mg Take 1 Univ ers mg tablet 6-15 tablet by ity o f 00:00: mouth [place] 00 every 6 Medical (six) Branch hours as needed for Pain (scale 7-10). Indication s: chronic pain traMADoL 50 2021-0 Yes [id number] 50mg Take 1 Univ ers mg tablet 6-15 tablet by ity o f 00:00: mouth [place] 00 every 6 Medical (six) Branch hours as needed for Pain (scale 7-10). Indication s: chronic pain traMADoL 50 2021-0 Yes [id number] 50mg Take 1 Univ ers mg tablet 6-15 tablet by ity o f 00:00: mouth [place] 00 every 6 Medical (six) Branch hours as needed for Pain (scale 7-10). Indication s: chronic pain ALPRAZolam 2021-0 202- No [id number] 2mg Take 1 Univers 2 mg tablet 6-15 10-17 tablet by it y of 00:00: 00:00 mouth 2 [place] 00 :00 (two) Medical times Branch daily as needed [...] tablet 5-11 by mouth. ity of 13:10: [place] 20 Medical Branch sacubitriL- 2021-0 Yes Take by Uni vers valsartan 5-11 mouth. ity of (ENTRESTO) 13:10: [place] 49-51 mg 20 Medical tablet Branch metOLazone 2021-0 Yes 5mg Take 5 mg Un jennifer 5 mg tablet 5-11 by mouth. ity of 13:10: [place] 20 Medical Branch sacubitriL- 2021-0 Yes Take by Uni vers valsartan 5-11 mouth. ity of (ENTRESTO) 13:10: [place] 49-51 mg 20 Medical tablet Branch metOLazone 2021-0 Yes 5mg Take 5 mg Un jennifer 5 mg tablet 5-11 by mouth. ity of 13:10: [place] 20 Medical Branch sacubitriL- 2021-0 Yes Take by Uni vers valsartan 5-11 mouth. ity of (ENTRESTO) 13:10: [place] 49-51 mg 20 Medical tablet Branch metOLazone 2021-0 Yes 5mg Take 5 mg Un jennifer 5 mg tablet 5-11 by mouth. ity of 13:10: [place] 20 Medical Branch sacubitriL- 2021-0 Yes Take by Uni vers valsartan 5-11 mouth. ity of (ENTRESTO) 13:10: [place] 49-51 mg 20 Medical tablet Branch metOLazone 2021-0 Yes 5mg Take 5 mg Un jennifer 5 mg tablet 5-11 by mouth. ity of 13:10: [place] 20 Medical Branch sacubitriL- 2021-0 Yes Take by Uni vers valsartan 5-11 mouth. ity of (ENTRESTO) 13:10: [place] 49-51 mg 20 Medical tablet Branch metOLazone 2021-0 Yes 5mg Take 5 mg Un jennifer 5 mg tablet 5-11 by mouth. ity of 13:10: [place] 20 Medical Branch sacubitriL- 2021-0 Yes Take [...] tablet 5-11 by mouth. ity of 13:10: [place] 20 Medical Branch sacubitriL- 2021-0 Yes Take by Uni vers valsartan 5-11 mouth. ity of (ENTRESTO) 13:10: [place] 49-51 mg 20 Medical tablet Branch metOLazone 2021-0 Yes 5mg Take 5 mg Un jennifer 5 mg tablet 5-11 by mouth. ity of 13:10: [place] 20 Medical Branch sacubitriL- 2021-0 Yes Take by Uni vers valsartan 5-11 mouth. ity of (ENTRESTO) 13:10: [place] 49-51 mg 20 Medical tablet Branch metOLazone 2021-0 Yes 5mg Take 5 mg Un jennifer 5 mg tablet 5-11 by mouth. ity of 13:10: [place] 20 Medical Branch sacubitriL- 2021-0 Yes Take by Uni vers valsartan 5-11 mouth. ity of (ENTRESTO) 13:10: [place] 49-51 mg 20 Medical tablet Branch metOLazone 2021-0 Yes 5mg Take 5 mg Un jennifer 5 mg tablet 5-11 by mouth. ity of 13:10: [place] 20 Medical Branch sacubitriL- 2021-0 Yes Take by Uni vers valsartan 5-11 mouth. ity of (ENTRESTO) 13:10: [place] 49-51 mg 20 Medical tablet Branch metOLazone 2021-0 Yes 5mg Take 5 mg Un jennifer 5 mg tablet 5-11 by mouth. ity of 13:10: [place] 20 Medical Branch sacubitriL- 2021-0 Yes Take by Uni vers valsartan 5-11 mouth. ity of (ENTRESTO) 13:10: [place] 49-51 mg 20 Medical tablet Branch metOLazone 2021-0 Yes 5mg Take 5 mg Un jennifer 5 mg tablet 5-11 by mouth. ity of 13:10: [place] 20 Medical Branch sacubitriL- 2021-0 Yes Take by Uni vers valsartan 5-11 mouth. ity of (ENTRESTO) 13:10: [place] 49-51 mg 20 Medical tablet Branch metOLazone 2021-0 Yes 5mg Take 5 mg Un jennifer 5 mg tablet 5-11 by mouth. ity of 13:10: [place] 20 Medical Branch sacubitriL- 2021-0 Yes Take by Uni vers valsartan 5-11 mouth. ity of (ENTRESTO) 13:10: [place] 49-51 mg 20 Medical tablet Branch metOLazone 2021-0 Yes 5mg Take 5 mg Un jennifer 5 mg tablet 5-11 by mouth. ity of 13:10: [place] 20 Medical Branch sacubitriL- 2021-0 Yes Take by Uni vers valsartan 5-11 mouth. ity of (ENTRESTO) 13:10: [place] 49-51 mg 20 Medical tablet Branch metOLazone 2021-0 Yes 5mg Take 5 mg Un jennifer 5 mg tablet 5-11 by mouth. ity of 13:10: [place] 20 [facility] sacubitriL- 2021-0 Yes Take by Uni vers valsartan 5-11 mouth. ity of (ENTRESTO) 13:10: [place] 49-51 mg 20 Medical tablet Branch metOLazone 2021-0 Yes 5mg Take 5 mg Un jennifer 5 mg tablet 5-11 by mouth. ity of 13:10: [place] 20 [facility] sacubitriL- 2021-0 Yes Take by [facility] vers valsartan 5-11 mouth. ity of (ENTRESTO) 13:10: [place] 49-51 mg 20 Medical tablet Branch metOLazone 2021-0 Yes 5mg Take 5 mg Un jennifer 5 mg tablet 5-11 by mouth. ity of 13:10: [place] 20 [facility] sacubitriL- 2021-0 Yes Take by [facility] vers valsartan 5-11 mouth. ity of (ENTRESTO) 13:10: [place] 49-51 mg 20 Medical tablet Branch metOLazone 2021-0 Yes 5mg Take 5 mg Un jennifer 5 mg tablet 5-11 by mouth. ity of 13:10: [place] 20 [facility] sacubitriL- 2021-0 Yes Take by [facility] vers valsartan 5-11 mouth. ity of (ENTRESTO) 13:10: [place] 49-51 mg 20 Medical tablet Branch metOLazone 2021-0 Yes 5mg Take 5 mg Un jennifer 5 mg tablet 5-11 by mouth. ity of 13:10: [place] 20 [facility] sacubitriL- 2021-0 Yes Take by [facility] vers valsartan 5-11 mouth. ity of (ENTRESTO) 13:10: [place] 49-51 mg 20 Medical tablet Branch metOLazone 2021-0 Yes 5mg Take 5 mg Un jennifer 5 mg tablet 5-11 by mouth. ity of 13:10: [place] 20 [facility] sacubitriL- 2021-0 Yes Take by [facility] vers valsartan 5-11 mouth. ity of (ENTRESTO) 13:10: [place] 49-51 mg 20 Medical tablet Branch KCL 10 mEq 2021-0 Yes 10meq Take 10 Uni vers tablet 5-11 mEq by ity of 13:08: mouth. [place] [address] [facility] KCL 10 mEq 2-0 Yes 10meq Take 10 Uni vers tablet 5-11 mEq by ity of 13:08: mouth. [place] [address] [facility] KCL 10 mEq 2-0 Yes 10meq Take 10 Uni vers tablet 5-11 mEq by ity of 13:08: mouth. [place] [address] [facility] KCL 10 mEq 2-0 Yes 10meq Take 10 Uni vers tablet 5-11 mEq by ity of 13:08: mouth. [place] [address] [facility] KCL 10 mEq 2-0 Yes 10meq Take 10 Uni vers tablet 5-11 mEq by ity of 13:08: mouth. [place] [address] [facility] KCL 10 mEq 2-0 Yes 10meq Take 10 Uni vers tablet 5-11 mEq by ity of 13:08: mouth. [place] [address] [facility] KCL 10 mEq 2-0 Yes 10meq Take 10 Uni vers tablet 5-11 mEq by ity of 13:08: mouth. [place] [address] [facility] KCL 10 mEq 2-0 Yes 10meq Take 10 Uni vers tablet 5-11 mEq by ity of 13:08: mouth. [place] [address] [facility] KCL 10 mEq 2022-0 Yes 10meq Take 10 Uni vers tablet 5-11 mEq by ity of 13:08: mouth. [place] [address] [facility] KCL 10 mEq 2022-0 Yes 10meq Take 10 Uni vers tablet 5-11 mEq by ity of 13:08: mouth. [place] [address] [facility] KCL 10 mEq 2022-0 Yes 10meq Take 10 Uni vers tablet 5-11 mEq by ity of 13:08: mouth. [place] [address] [facility] KCL 10 mEq 2022-0 Yes 10meq Take 10 Uni vers tablet 5-11 mEq by ity of 13:08: mouth. [place] [address] [facility] KCL 10 mEq 2022-0 Yes 10meq Take 10 Uni vers tablet 5-11 mEq by ity of 13:08: mouth. [place] [address] [facility] KCL 10 mEq 2022-0 Yes 10meq Take 10 Uni vers tablet 5-11 mEq by ity of 13:08: mouth. [place] [address] [facility] KCL 10 mEq 2022-0 Yes 10meq Take 10 Uni vers tablet 5-11 mEq by ity of 13:08: mouth. [place] [address] [facility] KCL 10 mEq 2022-0 Yes 10meq Take 10 Uni vers tablet 5-11 mEq by ity of 13:08: mouth. [place] [address] [facility] KCL 10 mEq 2022-0 Yes 10meq Take 10 Uni vers tablet 5-11 mEq by ity of 13:08: mouth. [place] [address] [facility] KCL 10 mEq 2-0 Yes 10meq Take 10 Uni vers tablet 5-11 mEq by ity of 13:08: mouth. [place] [address] [facility] KCL 10 mEq 2022-0 Yes 10meq Take 10 Uni vers tablet 5-11 mEq by ity of 13:08: mouth. [place] [address] [facility] KCL 10 mEq 2022-0 Yes 10meq Take 10 Uni vers tablet 5-11 mEq by ity of 13:08: mouth. [place] [address] [facility] KCL 10 mEq 2022-0 Yes 10meq Take 10 Uni vers tablet 5-11 mEq by ity of 13:08: mouth. [place] [address] [facility] KCL 10 mEq 2-0 Yes 10meq Take 10 Uni vers tablet 5-11 mEq by ity of 13:08: mouth. [place] [address] [facility] calcium-mag 2-0 Yes 1{tbl} QD Take 1 [facility] nesium-zinc 5-[address] tablet 13:11: mouth [facility] 01 daily. l Lactobacill Yes 1{capsu QD Take 1 M ethodi us 5-05 le} capsule by st acidophilus 13:11: mouth Hospi ta (PROBIOTIC 01 daily. l ORAL) calcium-mag Yes 1{tbl} QD Take 1 [facility] nesium-zinc 5-[address] tablet 13:11: mouth [facility] 01 daily. l Lactobacill Yes 1{capsu QD Take 1 M ethodi us 5-05 le} capsule by st acidophilus 13:11: mouth [facility]pi [facility] (PROBIOTIC 01 daily. l ORAL) pantoprazol 2021- No 40mg QD Take 1 [facility] e 5-05 05-04 tablet (40 st (PROTONIX) 00:00: 00:00 mg total) [facility] 40 MG EC 00 :00 by mouth l tablet daily for 30 days. pantoprazol 2021- No 40mg QD Take 1 [facility] e 5-05 05-04 tablet (40 st (PROTONIX) 00:00: 00:00 mg total) [facility] 40 MG EC 00 :00 by mouth l tablet daily for 30 days. sacubitriL- 2021-2021- No 1{tbl} Q.5D Take 1 M [facility]i valsartan 5-04 05-[address] (ENTRESTO) 13:11: 00:00 mouth 2 [facility] 49-51 mg 34 :00 (two) l tablet per times a tablet day. furosemide 2021-0 2021- No 60mg Q.5D Take 60 mg [facility] (LASIX) 20 5-04 05-[address] mg tablet 13:11: 00:00 (two) Hospit a 34 :00 times a l day. sacubitriL- 2021-2021- No 1{tbl} Q.5D Take 1 M [facility]i valsartan 5-04 05-[address] (ENTRESTO) 13:11: 00:00 mouth 2 [facility] 49-51 mg 34 :00 (two) l tablet per times a tablet day. furosemide 2021-0 2022- No 60mg Q.5D Take 60 mg [facility] (LASIX) 20 5-04 05-[address] mg tablet 13:11: 00:00 (two) Hospit a 34 :00 times a l day. ALPRAZolam 2-0 Yes 2mg Q.[id number] Take 2 mg [facility] (XANAX) 2 5-04 [id number] by mouth 3 st MG tablet 13:11: 3D (three) Hospi ta 31 times a l day as needed for anxiety. potassium 2-0 Yes 10meq QD Take 10 Meth chris chloride 5-[address] (K-DUR) 10 13:11: mouth Hospit a MEQ CR 31 daily. l tablet aspirin 325 2-0 Yes 325mg QD Take 325 M [facility]i MG tablet 5-[address] 13:11: mouth [facility]osp[facility] 31 daily. l amIODarone 2022-0 Yes 200mg QD Take 200 [facility] (PACERONE) 5-[address] 200 MG 13:11: mouth [facility]osp[facility] tablet 31 daily. l metOLazone 2021-0 Yes 5mg Take 5 mg [facility] (ZAROXOLYN) 5-[address] 5 MG tablet 13:11: as needed [facility]sp[facility] 31 (Fluid l retention) . Take one hour prior to furosemide ALPRAZolam 2021-0 Yes 2mg Q.[id number] Take 2 mg [facility] (XANAX) 2 5-04 [id number] by mouth 3 [address] MG tablet 13:11: 3D (three) Hospi ta 31 times a l day as needed for anxiety. potassium 2-0 Yes 10meq QD Take 10 Meth chris chloride 5-[address] (K-DUR) 10 13:11: mouth Hospit a MEQ CR 31 daily. l tablet aspirin 325 2-0 Yes 325mg QD Take 325 M ethodi MG tablet 5-[address] 13:11: mouth [facility]osp[facility] 31 daily. l amIODarone 2022-0 Yes 200mg QD Take 200 [facility] (PACERONE) 5-[address] 200 MG 13:11: mouth [facility]osp[facility] tablet 31 daily. l metOLazone 2022-0 Yes 5mg Take 5 mg [facility] (ZAROXOLYN) 5-[address] 5 MG tablet 13:11: as needed [facility]sp[facility] 31 (Fluid l retention) . Take one hour prior to furosemide hydrocortis 2021- No Q.5D Insert Met [facility]odi one 12-[address] (ANUSOL-HC) 00:00: 04:59 rectum 2 H [facility]spita 2.5 % 00 :00 (two) l rectal times a cream day for 30 days. furosemide 2021- No 80mg Q.[id number] Take 1 [facility] (LASIX) 80 5- 06-04 [id number] tablet (80 st mg tablet 00:00: 04:59 3D mg total) Ho spita 00 :00 by mouth 3 l (three) times a day for 30 days. hydrocortis 2021- No Q.5D Insert Met [facility]odi one 12-[address] (ANUSOL-HC) 00:00: 04:59 rectum 2 H [facility]sp[facility] 2.5 % 00 :00 (two) l rectal times a cream day for 30 days. furosemide 2021-2021- No 80mg Q.[id number] Take 1 [facility] (LASIX) 80 5-11 23- [id number] tablet (80 st mg tablet 00:00: 04:59 3D mg total) [facility] 00 :00 by mouth 3 l (three) times a day for 30 days. ascorbic 2021-2021- No QD Take by Metho di acid, 12-14- mouth st vitamin C, 08:18: 00:00 daily. [facility] (VITAMIN C) 55 :00 Patient l 250 MG does not tablet know amount ascorbic 2021-2021- No QD Take by Metho di acid, 12-14-[address] vitamin C, 08:18: 00:00 daily. [facility] (VITAMIN C) 55 :00 Patient l 250 MG does not tablet know amount polyethylen 2021- Yes [id number] 1{packe Take 1 [facility] e glycol 3-06 t} Packet by ity of 3350 00:00: mouth [place] (MIRALAX) 00 every 24 Medica l 17 gram (twenty-fo Branch powder ur) hours as needed for Constipati on. polyethylen Yes [id number] 1{packe Take 1 [facility] e glycol 3-06 t} Packet by ity of 3350 00:00: mouth [place] (MIRALAX) 00 every 24 Medica l 17 gram (twenty-fo Branch powder ur) hours as needed for Constipati on. polyethylen Yes [id number] 1{packe Take 1 [facility] e glycol 3-06 t} Packet by ity of 3350 00:00: mouth [place] (MIRALAX) 00 every 24 Medica l 17 gram (twenty-fo Branch powder ur) hours as needed for Constipati on. polyethylen Yes [id number] 1{packe Take 1 [facility] e glycol 3-06 t} Packet by ity of 3350 00:00: mouth [place] (MIRALAX) 00 every 24 Medica l 17 gram (twenty-fo Branch powder ur) hours as needed for Constipati on. polyethylen Yes [id number] 1{packe Take 1 [facility] e glycol 3-06 t} Packet by ity of 3350 00:00: mouth [place] (MIRALAX) 00 every 24 Medica l 17 gram (twenty-fo Branch powder ur) hours as needed for Constipati on. polyethylen Yes [id number] 1{packe Take 1 [facility] e glycol 3-06 t} Packet by ity of 3350 00:00: mouth [place] (MIRALAX) 00 every 24 Medica l 17 gram (twenty-fo Branch powder ur) hours as needed for Constipati on. polyethylen Yes [id number] 1{packe Take 1 [facility] e glycol 3-06 t} Packet by ity of 3350 00:00: mouth [place] (MIRALAX) 00 every 24 Medica l 17 gram (twenty-fo Branch powder ur) hours as needed for Constipati on. polyethylen Yes [id number] 1{packe Take 1 [facility] e glycol 3-06 t} Packet by ity of 3350 00:00: mouth [place] (MIRALAX) 00 every 24 Medica l 17 gram (twenty-fo Branch powder ur) hours as needed for Constipati on. polyethylen Yes [id number] 1{packe Take 1 [facility] e glycol 3-06 t} Packet by ity of 3350 00:00: mouth [place] (MIRALAX) 00 every 24 Medica l 17 gram (twenty-fo Branch powder ur) hours as needed for Constipati on. polyethylen Yes 1{packe Take 1 [facility] e glycol 3-06 t} Packet by ity of 3350 00:00: mouth [place] (MIRALAX) 00 every 24 Medica l 17 gram (twenty-fo Branch powder ur) hours as needed for Constipati on. polyethylen Yes 1{packe Take 1 [facility] e glycol 3-06 t} Packet by ity of 3350 00:00: mouth [place] (MIRALAX) 00 every 24 Medica l 17 gram (twenty-fo Branch powder ur) hours as needed for Constipati on. polyethylen Yes 1{packe Take 1 [facility] e glycol 3-06 t} Packet by ity of 3350 00:00: mouth [place] (MIRALAX) 00 every 24 Medica l 17 gram (twenty-fo Branch powder ur) hours as needed for Constipati on. polyethylen Yes 1{packe Take 1 [facility] e glycol 3-06 t} Packet by ity of 3350 00:00: mouth [place] (MIRALAX) 00 every 24 Medica l 17 gram (twenty-fo Branch powder ur) hours as needed for Constipati on. polyethylen Yes 1{packe Take 1 [facility] e glycol 3-06 t} Packet by ity of 3350 00:00: mouth [place] (MIRALAX) 00 every 24 Medica l 17 gram (twenty-fo Branch powder ur) hours as needed for Constipati on. polyethylen Yes 1{packe Take 1 [facility] e glycol 3-06 t} Packet by ity of 3350 00:00: mouth [place] (MIRALAX) 00 every 24 Medica l 17 gram (twenty-fo Branch powder ur) hours as needed for Constipati on. polyethylen Yes 1{packe Take 1 [facility] e glycol 3-06 t} Packet by ity of 3350 00:00: mouth [place] (MIRALAX) 00 every 24 Medica l 17 gram (twenty-fo Branch powder ur) hours as needed for Constipati on. polyethylen Yes 1{packe Take 1 [facility] e glycol 3-06 t} Packet by ity of 3350 00:00: mouth [place] (MIRALAX) 00 every 24 Medica l 17 gram (twenty-fo Branch powder ur) hours as needed for Constipati on. polyethylen Yes [id number] 1{packe Take 1 [facility] e glycol 3-06 t} Packet by ity of 3350 00:00: mouth [place] (MIRALAX) 00 every 24 Medica l 17 gram (twenty-fo Branch powder ur) hours as needed for Constipati on. polyethylen Yes [id number] 1{packe Take 1 [facility] e glycol 3-06 t} Packet by ity of 3350 00:00: mouth [place] (MIRALAX) 00 every 24 Medica l 17 gram (twenty-fo Branch powder ur) hours as needed for Constipati on. polyethylen Yes [id number] 1{packe Take 1 [facility] e glycol 3-06 t} Packet by ity of 3350 00:00: mouth [place] (MIRALAX) 00 every 24 Medica l 17 gram (twenty-fo Branch powder ur) hours as needed for Constipati on. polyethylen Yes [id number] 1{packe Take 1 [facility] e glycol 3-06 t} Packet by ity of 3350 00:00: mouth [place] (MIRALAX) 00 every 24 Medica l 17 gram (twenty-fo Branch powder ur) hours as needed for Constipati on. polyethylen Yes [id number] 1{packe Take 1 [facility] e glycol 3-06 t} Packet by ity of 3350 00:00: mouth [place] (MIRALAX) 00 every 24 Medica l 17 gram (twenty-fo Branch powder ur) hours as needed for Constipati on. dicyclomine Yes [id number] 20mg Take 1 [facility] 20 mg 2-27 tablet by ity of tablet 00:00: mouth [place] 00 every 6 Medical (six) Branch hours as needed for Abdominal pain. dicyclomine 0 Yes [id number] 20mg Take 1 [facility] 20 mg 2-27 tablet by ity of tablet 00:00: mouth [place] 00 every 6 Medical (six) Branch hours as needed for Abdominal pain. dicyclomine 2022-0 Yes [id number] 20mg Take 1 [facility] 20 mg 2-27 tablet by ity of tablet 00:00: mouth [place] 00 every 6 Medical (six) Branch hours as needed for Abdominal pain. dicyclomine 2022-0 Yes [id number] 20mg Take 1 [facility] 20 mg 2-27 tablet by ity of tablet 00:00: mouth [place] 00 every 6 Medical (six) Branch hours as needed for Abdominal pain. dicyclomine 2-0 Yes [id number] 20mg Take 1 [facility] 20 mg 2-27 tablet by ity of tablet 00:00: mouth [place] 00 every 6 Medical (six) Branch hours as needed for Abdominal pain. dicyclomine 2-0 Yes [id number] 20mg Take 1 [facility] 20 mg 2-27 tablet by ity of tablet 00:00: mouth [place] 00 every 6 Medical (six) Branch hours as needed for Abdominal pain. dicyclomine 2-0 Yes [id number] 20mg Take 1 [facility] 20 mg 2-27 tablet by ity of tablet 00:00: mouth [place] 00 every 6 Medical (six) Branch hours as needed for Abdominal pain. dicyclomine 2-0 Yes [id number] 20mg Take 1 [facility] 20 mg 2-27 tablet by ity of tablet 00:00: mouth [place] 00 every 6 Medical (six) Branch hours as needed for Abdominal pain. dicyclomine 2-0 Yes [id number] 20mg Take 1 [facility] 20 mg 2-27 tablet by ity of tablet 00:00: mouth [place] 00 every 6 Medical (six) Branch hours as needed for Abdominal pain. dicyclomine 2-0 Yes [id number] 20mg Take 1 [facility] 20 mg 2-27 tablet by ity of tablet 00:00: mouth [place] 00 every 6 Medical (six) Branch hours as needed for Abdominal pain. dicyclomine 2022-0 Yes [id number] 20mg Take 1 [facility] 20 mg 2-27 tablet by ity of tablet 00:00: mouth [place] 00 every 6 Medical (six) Branch hours as needed for Abdominal pain. dicyclomine 2022-0 Yes [id number] 20mg Take 1 [facility] 20 mg 2-27 tablet by ity of tablet 00:00: mouth [place] 00 every 6 Medical (six) Branch hours as needed for Abdominal pain. dicyclomine 2-0 Yes [id number] 20mg Take 1 [facility] 20 mg 2-27 tablet by ity of tablet 00:00: mouth [place] 00 every 6 Medical (six) Branch hours as needed for Abdominal pain. dicyclomine 2022-0 Yes [id number] 20mg Take 1 [facility] 20 mg 2-27 tablet by ity of tablet 00:00: mouth [place] 00 every 6 Medical (six) Branch hours as needed for Abdominal pain. dicyclomine 2-0 Yes [id number] 20mg Take 1 [facility] 20 mg 2-27 tablet by ity of tablet 00:00: mouth [place] 00 every 6 Medical (six) Branch hours as needed for Abdominal pain. dicyclomine 2-0 Yes [id number] 20mg Take 1 [facility] 20 mg 2-27 tablet by ity of tablet 00:00: mouth [place] 00 every 6 Medical (six) Branch hours as needed for Abdominal pain. dicyclomine 2-0 Yes [id number] 20mg Take 1 [facility] 20 mg 2-27 tablet by ity of tablet 00:00: mouth [place] 00 every 6 Medical (six) Branch hours as needed for Abdominal pain. dicyclomine 2-0 Yes [id number] 20mg Take 1 [facility] 20 mg 2-27 tablet by ity of tablet 00:00: mouth [place] 00 every 6 Medical (six) Branch hours as needed for Abdominal pain. dicyclomine 2-0 Yes [id number] 20mg Take 1 [facility] 20 mg 2-27 tablet by ity of tablet 00:00: mouth [place] 00 every 6 Medical (six) Branch hours as needed for Abdominal pain. dicyclomine 2-0 Yes [id number] 20mg Take 1 [facility] 20 mg 2-27 tablet by ity of tablet 00:00: mouth [place] 00 every 6 Medical (six) Branch hours as needed for Abdominal pain. dicyclomine 2022-0 Yes [id number] 20mg Take 1 [facility] 20 mg 2-27 tablet by ity of tablet 00:00: mouth [place] 00 every 6 Medical (six) Branch hours as needed for Abdominal pain. dicyclomine 2022-0 Yes [id number] 20mg Take 1 [facility] 20 mg 2-27 tablet by ity of tablet 00:00: mouth [place] 00 every 6 Medical (six) Branch hours as needed for Abdominal pain. amiodarone 2022-0 Yes 200mg Take 200 [facility] 200 mg 2-22 mg by ity of tablet 10:30: mouth. [place] [address] Medical Branch aspirin 325 2021-0 Yes 325mg Take 325 U nivers mg tablet 2-22 mg by ity of 10:30: mouth. [place] [address] [facility] Branch amiodarone 2021-0 Yes 200mg Take 200 Un j[facility] 200 mg 2-22 mg by ity of tablet 10:30: mouth. [place] [address] [facility] Branch aspirin 325 2021-0 Yes 325mg Take 325 U nivers mg tablet 2-22 mg by ity of 10:30: mouth. [place] [address] [facility] Branch amiodarone 2021-0 Yes 200mg Take 200 Un jennifer 200 mg 2-22 mg by ity of tablet 10:30: mouth. [address] Branch aspirin 325 2021-0 Yes 325mg Take 325 U nivers mg tablet 2-22 mg by ity of 10:30: mouth. [address] Branch amiodarone 2021-0 Yes 200mg Take 200 Un jennifer 200 mg 2-22 mg by ity of tablet 10:30: mouth. [place] [address] [facility] Branch aspirin 325 2021-0 Yes 325mg Take 325 U nivers mg tablet 2-22 mg by ity of 10:30: mouth. [place] [address] [facility] Branch amiodarone 2021-0 Yes 200mg Take 200 Un jennifer 200 mg 2-22 mg by ity of tablet 10:30: mouth. [place] [address] [facility] Branch aspirin 325 2021-0 Yes 325mg Take 325 U nivers mg tablet 2-22 mg by ity of 10:30: mouth. [place] [address] [facility] Branch amiodarone 2021-0 Yes 200mg Take 200 Un jenn[facility] 200 mg 2-22 mg by ity of tablet 10:30: mouth. [place] [address] [facility] Branch aspirin 325 2021-0 Yes 325mg Take 325 U nivers mg tablet 2-22 mg by ity of 10:30: mouth. [place] [address] [facility] Branch amiodarone 2021-0 Yes 200mg Take 200 Un jennifer 200 mg 2-22 mg by ity of tablet 10:30: mouth. [place] [address] [facility] Branch aspirin 325 2-0 Yes 325mg Take 325 U nivers mg tablet 2-22 mg by ity of 10:30: mouth. [address] Branch amiodarone 2021-0 Yes 200mg Take 200 Un jennifer 200 mg 2-22 mg by ity of tablet 10:30: mouth. [place] [address] [facility] Branch aspirin 325 2021-0 Yes 325mg Take 325 U nivers mg tablet 2-22 mg by ity of 10:30: mouth. [place] [address] [facility] Branch amiodarone 2021-0 Yes 200mg Take 200 Un jennifer 200 mg 2-22 mg by ity of tablet 10:30: mouth. [place] [address] [facility] Branch aspirin 325 2021-0 Yes 325mg Take 325 U nivers mg tablet 2-22 mg by ity of 10:30: mouth. [place] [address] [facility] Branch amiodarone 2021-0 Yes 200mg Take 200 Un jennifer 200 mg 2-22 mg by ity of tablet 10:30: mouth. [address] Branch aspirin 325 2021-0 Yes 325mg Take 325 U nivers mg tablet 2-22 mg by ity of 10:30: mouth. [address] Branch amiodarone 2021-0 Yes 200mg Take 200 Un jennifer 200 mg 2-22 mg by ity of tablet 10:30: mouth. [place] [address] [facility] Branch aspirin 325 2021-0 Yes 325mg Take 325 U nivers mg tablet 2-22 mg by ity of 10:30: mouth. [place] [address] [facility] Branch amiodarone 2021-0 Yes 200mg Take 200 Un jenn[facility] 200 mg 2-22 mg by ity of tablet 10:30: mouth. [address] Branch aspirin 325 2021-0 Yes 325mg Take 325 U nivers mg tablet 2-22 mg by ity of 10:30: mouth. [place] [address] [facility] Branch amiodarone 2021-0 Yes 200mg Take 200 Un jennifer 200 mg 2-22 mg by ity of tablet 10:30: mouth. [place] [address] [facility] Branch aspirin 325 2021-0 Yes 325mg Take 325 U nivers mg tablet 2-22 mg by ity of 10:30: mouth. [place] [address] [facility] Branch amiodarone 2021-0 Yes 200mg Take 200 Un jennifer 200 mg 2-22 mg by ity of tablet 10:30: mouth. [address] aspirin 325 2-0 Yes 325mg Take 325 U nivers mg tablet 2-22 mg by ity of 10:30: mouth. [address] Branch amiodarone 2021-0 Yes 200mg Take 200 Un jennifer 200 mg 2-22 mg by ity of tablet 10:30: mouth. [place] [address] [facility] Branch aspirin 325 2-0 Yes 325mg Take 325 U nivers mg tablet 2-22 mg by ity of 10:30: mouth. [place] [address] [facility] Branch amiodarone 2021-0 Yes 200mg Take 200 Un j[facility] 200 mg 2-22 mg by ity of tablet 10:30: mouth. [place] [address] [facility] Branch aspirin 325 2-0 Yes 325mg Take 325 U nivers mg tablet 2-22 mg by ity of 10:30: mouth. [place] [address] [facility] Branch amiodarone 2021-0 Yes 200mg Take 200 Un j[facility] 200 mg 2-22 mg by ity of tablet 10:30: mouth. [address] Branch aspirin 325 2021-0 Yes 325mg Take 325 U nivers mg tablet 2-22 mg by ity of 10:30: mouth. [address] Branch amiodarone 2021-0 Yes 200mg Take 200 Un [facility] 200 mg 2-22 mg by ity of tablet 10:30: mouth. [place] [address] [facility] aspirin 325 2-0 Yes 325mg Take 325 U nivers mg tablet 2-22 mg by ity of 10:30: mouth. [place] [address] [facility] Branch amiodarone 2021-0 Yes 200mg Take 200 Un j[facility] 200 mg 2-22 mg by ity of tablet 10:30: mouth. [address] Branch aspirin 325 2-0 Yes 325mg Take 325 U nivers mg tablet 2-22 mg by ity of 10:30: mouth. [place] [address] [facility] Branch amiodarone 2-0 Yes 200mg Take 200 Un j[facility] 200 mg 2-22 mg by ity of tablet 10:30: mouth. [place] [address] [facility] Branch aspirin 325 2-0 Yes 325mg Take 325 U nivers mg tablet 2-22 mg by ity of 10:30: mouth. [place] [address] [facility] Branch amiodarone 2-0 Yes 200mg Take 200 Un j[facility] 200 mg 2-22 mg by ity of tablet 10:30: mouth. [address] Branch aspirin 325 2-0 Yes 325mg Take 325 U nivers mg tablet 2-22 mg by ity of 10:30: mouth. [address] Branch amiodarone 2-0 Yes 200mg Take 200 Un [facility] 200 mg 2-22 mg by ity of tablet 10:30: mouth. [address] aspirin 325 2-0 Yes 325mg Take 325 U nivers mg tablet 2-22 mg by ity of 10:30: mouth. [address] Branch spironolact 2022-0 Yes .5mg Take 0.5 Un jenn[facility] one 25 mg 2-22 mg by ity of tablet 10:30: mouth. [place] [address] Medical Branch spironolact 2022-0 Yes .5mg Take 0.5 Un jenn[facility] one 25 mg 2-22 mg by ity of tablet 10:30: mouth. [address] Branch spironolact 2022-0 Yes .5mg Take 0.5 Un jenn[facility] one 25 mg 2-22 mg by ity of tablet 10:30: mouth. [address] Branch spironolact 2022-0 Yes .5mg Take 0.5 Un jenn[facility] one 25 mg 2-22 mg by ity of tablet 10:30: mouth. [address] Branch spironolact 2022-0 Yes .5mg Take 0.5 Un jenn[facility] one 25 mg 2-22 mg by ity of tablet 10:30: mouth. [address] Branch spironolact 2022-0 Yes .5mg Take 0.5 Un jenn[facility] one 25 mg 2-22 mg by ity of tablet 10:30: mouth. [address] Branch spironolact 2022-0 Yes .5mg Take 0.5 Un jenn[facility] one 25 mg 2-22 mg by ity of tablet 10:30: mouth. [address] Branch spironolact 2022-0 Yes .5mg Take 0.5 Un jenn[facility] one 25 mg 2-22 mg by ity of tablet 10:30: mouth. [address] Branch spironolact 2022-0 Yes .5mg Take 0.5 Un jenn[facility] one 25 mg 2-22 mg by ity of tablet 10:30: mouth. [address] Branch spironolact 2022-0 Yes .5mg Take 0.5 Un jennifer one 25 mg 2-22 mg by ity of tablet 10:30: mouth. [address] Branch spironolact 2022-0 Yes .5mg Take 0.5 Un jennifer one 25 mg 2-22 mg by ity of tablet 10:30: mouth. [address] spironolact 2022-0 Yes .5mg Take 0.5 Un jennifer one 25 mg 2-22 mg by ity of tablet 10:30: mouth. [address] spironolact 2022-0 Yes .5mg Take 0.5 Un jenn[facility] one 25 mg 2-22 mg by ity of tablet 10:30: mouth. [address] spironolact 2022-0 Yes .5mg Take 0.5 Un jennifer one 25 mg 2-22 mg by ity of tablet 10:30: mouth. [address] spironolact 2022-0 Yes .5mg Take 0.5 Un jennifer one 25 mg 2-22 mg by ity of tablet 10:30: mouth. [address] spironolact 2022-0 Yes .5mg Take 0.5 Un jenn[facility] one 25 mg 2-22 mg by ity of tablet 10:30: mouth. [address] spironolact 2022-0 Yes .5mg Take 0.5 Un jennifer one 25 mg 2-22 mg by ity of tablet 10:30: mouth. [address] spironolact 2-0 Yes .5mg Take 0.5 Un jennifer one 25 mg 2-22 mg by ity of tablet 10:30: mouth. [address] spironolact 2022-0 Yes .5mg Take 0.5 Un jenn[facility] one 25 mg 2-22 mg by ity of tablet 10:30: mouth. [address] spironolact 2022-0 Yes .5mg Take 0.5 Un jenn[facility] one 25 mg 2-22 mg by ity of tablet 10:30: mouth. [address] spironolact 2022-0 Yes .5mg Take 0.5 Un jennifer one 25 mg 2-22 mg by ity of tablet 10:30: mouth. [address] spironolact 2022-0 Yes .5mg Take 0.5 Un jennifer one 25 mg 2-22 mg by ity of tablet 10:30: mouth. [address] ALPRAZolam 2022-0 2022- No [id number] TAKE 1 Univers 2 mg tablet 2-22 06-15 TABLET BY it y of 00:00: 00:00 MOUTH [place] 00 :00 [facility] Medical TIMES Branch DAILY NEEDED traMADoL 50 [...] tablet by ity o f 00:00: mouth [place] 00 every 6 Medical (six) Branch hours as needed for Pain (scale 7-10). Indication s: acute pain ALPRAZolam Yes Generalized TAKE 1 Univers 2 mg tablet 1-13 anxiety TABLET BY ity of 00:00: disorder MOUTH [place] 00 THREE Medical TIMES Branch DAILY NEEDED spironolact 2019-08 Yes .5mg Take 0.5 Un jennifer one 25 mg 0-29 mg by ity of tablet 19:32: mouth. [address] DIGOXIN Yes Take by Univers ORAL 7-10 mouth. ity of 19:00: [address] ENALAPRIL Yes Take by Unive rs MALEATE 7-10 mouth. ity of ORAL 19:00: [address] Branch sacubitril- Yes Take by Uni vers valsartan 7-10 mouth 2 ity of (ENTRESTO) 19:00: (two) [place] 24-26 mg 17 times Medical Tab daily. Branch furosemide Yes 80mg Take 80 mg U nivers (LASIX) 80 7-10 by mouth ity o f mg tablet 19:00: daily. [address] furosemide Yes 80mg Take 80 mg U nivers (LASIX) 80 7-10 by mouth ity o f mg tablet 14:00: daily. [address] DIGOXIN Yes Take by Univers ORAL 7-10 mouth. ity of 14:00: [address] ENALAPRIL Yes Take by Unive rs MALEATE 7-10 mouth. ity of ORAL 14:00: [address] sacubitril- Yes Take by Uni vers valsartan 7-10 mouth 2 ity of (ENTRESTO) 14:00: (two) [place] 24-26 mg 17 times Medical Tab daily. Branch furosemide Yes 80mg Take 80 mg U nivers (LASIX) 80 7-10 by mouth ity o f mg tablet 14:00: daily. [place] [id number] Medical Branch DIGOXIN 2018-0 Yes Take by Univers ORAL 7-10 mouth. ity of 14:00: [address] ENALAPRIL 0 Yes Take by Unive rs MALEATE 7-10 mouth. ity of ORAL 14:00: [address] Branch sacubitril- Yes Take by Uni vers valsartan 7-10 mouth 2 ity of (ENTRESTO) 14:00: (two) [place] 24-26 mg 17 times Medical Tab daily. Branch furosemide Yes 80mg Take 80 mg U nivers (LASIX) 80 7-10 by mouth ity o f mg tablet 14:00: daily. [address] DIGOXIN Yes Take by Univers ORAL 7-10 mouth. ity of 14:00: [address] ENALAPRIL Yes Take by Unive rs MALEATE 7-10 mouth. ity of ORAL 14:00: [address] sacubitril- Yes Take by Uni vers valsartan 7-10 mouth 2 ity of (ENTRESTO) 14:00: (two) [place] 24-26 mg 17 times Medical Tab daily. Branch furosemide Yes 80mg Take 80 mg U nivers (LASIX) 80 7-10 by mouth ity o f mg tablet 14:00: daily. [address] DIGOXIN 2018- Yes Take by Univers ORAL 7-10 mouth. ity of 14:00: [address] ENALAPRIL Yes Take by Unive rs MALEATE 7-10 mouth. ity of ORAL 14:00: [address] sacubitril- 0 Yes Take by Uni vers valsartan 7-10 mouth 2 ity of (ENTRESTO) 14:00: (two) [place] 24-26 mg 17 times Medical Tab daily. Branch furosemide 2018-0 Yes 80mg Take 80 mg U nivers (LASIX) 80 7-10 by mouth ity o f mg tablet 14:00: daily. [address] DIGOXIN 2018-0 Yes Take by Univers ORAL 7-10 mouth. ity of 14:00: [place] 17 Medical Branch ENALAPRIL 0 Yes Take by Unive rs MALEATE 7-10 mouth. ity of ORAL 14:00: [place] [address] Medical Branch sacubitril- Yes Take by Uni vers valsartan 7-10 mouth 2 ity of (ENTRESTO) 14:00: (two) [place] 24-26 mg 17 times Medical Tab daily. Branch furosemide 2019-0 Yes 80mg Take 80 mg U nivers (LASIX) 80 7-10 by mouth ity o f mg tablet 14:00: daily. [address] Branch DIGOXIN 2018-0 Yes Take by Univers ORAL 7-10 mouth. ity of 14:00: [address] Branch ENALAPRIL Yes Take by Unive rs MALEATE 7-10 mouth. ity of ORAL 14:00: [address] Branch sacubitril- Yes Take by Uni vers valsartan 7-10 mouth 2 ity of (ENTRESTO) 14:00: (two) [place] 24-26 mg 17 times Medical Tab daily. Branch furosemide Yes 80mg Take 80 mg U nivers (LASIX) 80 7-10 by mouth ity o f mg tablet 14:00: daily. [address] DIGOXIN 2018- Yes Take by Univers ORAL 7-10 mouth. ity of 14:00: [address] ENALAPRIL Yes Take by Unive rs MALEATE 7-10 mouth. ity of ORAL 14:00: [address] Branch sacubitril- Yes Take by Uni vers valsartan 7-10 mouth 2 ity of (ENTRESTO) 14:00: (two) [place] 24-26 mg 17 times Medical Tab daily. Branch furosemide 2019-0 Yes 80mg Take 80 mg U nivers (LASIX) 80 7-10 by mouth ity o f mg tablet 14:00: daily. [address] DIGOXIN 2018-0 Yes Take by Univers ORAL 7-10 mouth. ity of 14:00: [address] ENALAPRIL 2018-0 Yes Take by Unive rs MALEATE 7-10 mouth. ity of ORAL 14:00: [address] Branch sacubitril- Yes Take by Uni vers valsartan 7-10 mouth 2 ity of (ENTRESTO) 14:00: (two) [place] 24-26 mg 17 times Medical Tab daily. Branch furosemide 2019-0 Yes 80mg Take 80 mg U nivers (LASIX) 80 7-10 by mouth ity o f mg tablet 14:00: daily. [place] [id number] Medical Branch DIGOXIN 2018-0 Yes Take by Univers ORAL 7-10 mouth. ity of 14:00: [address] Branch ENALAPRIL 2018-0 Yes Take by Unive rs MALEATE 7-10 mouth. ity of ORAL 14:00: [address] Branch sacubitril- 0 Yes Take by Uni vers valsartan 7-10 mouth 2 ity of (ENTRESTO) 14:00: (two) [place] 24-26 mg 17 times Medical Tab daily. Branch furosemide 2018-0 Yes 80mg Take 80 mg U nivers (LASIX) 80 7-10 by mouth ity o f mg tablet 14:00: daily. [address] DIGOXIN Yes Take by Univers ORAL 7-10 mouth. ity of 14:00: [address] ENALAPRIL 2018-0 Yes Take by Unive rs MALEATE 7-10 mouth. ity of ORAL 14:00: [address] Branch sacubitril- 0 Yes Take by Uni vers valsartan 7-10 mouth 2 ity of (ENTRESTO) 14:00: (two) [place] 24-26 mg 17 times Medical Tab daily. Branch furosemide 2018-0 Yes 80mg Take 80 mg U nivers (LASIX) 80 7-10 by mouth ity o f mg tablet 14:00: daily. [address] DIGOXIN 2018-0 Yes Take by Univers ORAL 7-10 mouth. ity of 14:00: [address] ENALAPRIL 2018-0 Yes Take by Unive rs MALEATE 7-10 mouth. ity of ORAL 14:00: [place] [address] Medical Branch sacubitril- 2018-0 Yes Take by Uni vers valsartan 7-10 mouth 2 ity of (ENTRESTO) 14:00: (two) [place] 24-26 mg 17 times Medical Tab daily. Branch furosemide 2019-0 Yes 80mg Take 80 mg U nivers (LASIX) 80 7-10 by mouth ity o f mg tablet 14:00: daily. [address] DIGOXIN 2018-0 Yes Take by Univers ORAL 7-10 mouth. ity of 14:00: [address] ENALAPRIL Yes Take by Unive rs MALEATE 7-10 mouth. ity of ORAL 14:00: [address] sacubitril- Yes Take by Uni vers valsartan 7-10 mouth 2 ity of (ENTRESTO) 14:00: (two) [place] 24-26 mg 17 times Medical Tab daily. Branch furosemide Yes 80mg Take 80 mg U nivers (LASIX) 80 7-10 by mouth ity o f mg tablet 14:00: daily. [address] DIGOXIN Yes Take by Univers ORAL 7-10 mouth. ity of 14:00: [address] ENALAPRIL Yes Take by Unive rs MALEATE 7-10 mouth. ity of ORAL 14:00: [address] sacubitril- Yes Take by Uni vers valsartan 7-10 mouth 2 ity of (ENTRESTO) 14:00: (two) [place] 24-26 mg 17 times Medical Tab daily. Branch furosemide Yes 80mg Take 80 mg U nivers (LASIX) 80 7-10 by mouth ity o f mg tablet 14:00: daily. [address] DIGOXIN Yes Take by Univers ORAL 7-10 mouth. ity of 14:00: [address] ENALAPRIL Yes Take by Unive rs MALEATE 7-10 mouth. ity of ORAL 14:00: [address] sacubitril- Yes Take by Uni vers valsartan 7-10 mouth 2 ity of (ENTRESTO) 14:00: (two) [place] 24-26 mg 17 times Medical Tab daily. Branch furosemide Yes 80mg Take 80 mg U nivers (LASIX) 80 7-10 by mouth ity o f mg tablet 14:00: daily. [address] DIGOXIN 2018-0 Yes Take by Univers ORAL 7-10 mouth. ity of 14:00: [address] ENALAPRIL Yes Take by Unive rs MALEATE 7-10 mouth. ity of ORAL 14:00: [address] sacubitril- Yes Take by Uni vers valsartan 7-10 mouth 2 ity of (ENTRESTO) 14:00: (two) [place] 24-26 mg 17 times Medical Tab daily. Branch furosemide 0 Yes 80mg Take 80 mg U nivers (LASIX) 80 7-10 by mouth ity o f mg tablet 14:00: daily. [address] DIGOXIN 0 Yes Take by Univers ORAL 7-10 mouth. ity of 14:00: [address] ENALAPRIL Yes Take by Unive rs MALEATE 7-10 mouth. ity of ORAL 14:00: [address] sacubitril- Yes Take by Uni vers valsartan 7-10 mouth 2 ity of (ENTRESTO) 14:00: (two) [place] 24-26 mg 17 times Medical Tab daily. Branch furosemide Yes 80mg Take 80 mg U nivers (LASIX) 80 7-10 by mouth ity o f mg tablet 14:00: daily. [address] DIGOXIN Yes Take by Univers ORAL 7-10 mouth. ity of 14:00: [address] ENALAPRIL Yes Take by Unive rs MALEATE 7-10 mouth. ity of ORAL 14:00: [address] sacubitril- Yes Take by Uni vers valsartan 7-10 mouth 2 ity of (ENTRESTO) 14:00: (two) [place] 24-26 mg 17 times Medical Tab daily. Branch furosemide Yes 80mg Take 80 mg U nivers (LASIX) 80 7-10 by mouth ity o f mg tablet 14:00: daily. [address] DIGOXIN 2018-0 Yes Take by Univers ORAL 7-10 mouth. ity of 14:00: [address] ENALAPRIL 2018-0 Yes Take by Unive rs MALEATE 7-10 mouth. ity of ORAL 14:00: [address] sacubitril- 0 Yes Take by Uni vers valsartan 7-10 mouth 2 ity of (ENTRESTO) 14:00: (two) [place] 24-26 mg 17 times Medical Tab daily. Branch furosemide Yes 80mg Take 80 mg U nivers (LASIX) 80 7-10 by mouth ity o f mg tablet 14:00: daily. [address] DIGOXIN 2018-0 Yes Take by Univers ORAL 7-10 mouth. ity of 14:00: [address] Branch ENALAPRIL 2018-0 Yes Take by Unive rs MALEATE 7-10 mouth. ity of ORAL 14:00: [address] sacubitril- 0 Yes Take by Uni vers valsartan 7-10 mouth 2 ity of (ENTRESTO) 14:00: (two) [place] 24-26 mg 17 times Medical Tab daily. Branch furosemide 2019-0 Yes 80mg Take 80 mg U nivers (LASIX) 80 7-10 by mouth ity o f mg tablet 14:00: daily. [address] DIGOXIN 2018-0 Yes Take by Univers ORAL 7-10 mouth. ity of 14:00: [address] ENALAPRIL 2018- Yes Take by Unive rs MALEATE 7-10 mouth. ity of ORAL 14:00: [address] sacubitril- Yes Take by Uni vers valsartan 7-10 mouth 2 ity of (ENTRESTO) 14:00: (two) [place] 24-26 mg 17 times Medical Tab daily. Branch furosemide 2018-0 Yes 80mg Take 80 mg U nivers (LASIX) 80 7-10 by mouth ity o f mg tablet 14:00: daily. [address] DIGOXIN 2018-0 Yes Take by Univers ORAL 7-10 mouth. ity of 14:00: [address] ENALAPRIL 0 Yes Take by Unive rs MALEATE 7-10 mouth. ity of ORAL 14:00: [address] sacubitril- Yes Take by Uni vers valsartan 7-10 mouth 2 ity of (ENTRESTO) 14:00: (two) [place] 24-26 mg 17 times Medical Tab daily. Branch furosemide 2019-0 Yes 80mg Take 80 mg U nivers (LASIX) 80 7-10 by mouth ity o f mg tablet 14:00: daily. [address] DIGOXIN 2018-0 Yes Take by Univers ORAL 7-10 mouth. ity of 14:00: [address] ENALAPRIL 2019-0 Yes Take by Unive rs MALEATE 7-10 mouth. ity of ORAL 14:00: [address] sacubitril- Yes Take by Uni vers [...] Univers ORAL 9-21 Entered ity of 20:48: [address] OMEGA 3 Yes None Univers ORAL 9-21 Entered ity of 15:48: [address] OMEGA 3 Yes None Univers ORAL 9-21 Entered ity of 15:48: [address] OMEGA 3 Yes None Univers ORAL 9-21 Entered ity of 15:48: [address] OMEGA 3 Yes None Univers ORAL 9-21 Entered ity of 15:48: [address] OMEGA 3 Yes None Univers ORAL 9-21 Entered ity of 15:48: [address] OMEGA 3 Yes None Univers ORAL 9-21 Entered ity of 15:48: [address] OMEGA 3 Yes None Univers ORAL 9-21 Entered ity of 15:48: [address] OMEGA 3 Yes None Univers ORAL 9-21 Entered ity of 15:48: [address] OMEGA 3 Yes None Univers ORAL 9-21 Entered ity of 15:48: [address] OMEGA 3 Yes None Univers ORAL 9-21 Entered ity of 15:48: [address] OMEGA 3 Yes None Univers ORAL 9-21 Entered ity of 15:48: [address] OMEGA 3 Yes None Univers ORAL 9-21 Entered ity of 15:48: [address] OMEGA 3 Yes None Univers ORAL 9-21 Entered ity of 15:48: [address] OMEGA 3 Yes None Univers ORAL 9-21 Entered ity of 15:48: [address] OMEGA 3 Yes None Univers ORAL 9-21 Entered ity of 15:48: [address] OMEGA 3 Yes None Univers ORAL 9-21 Entered ity of 15:48: [address] OMEGA 3 Yes None Univers ORAL 9-21 Entered ity of 15:48: [place] [address] Medical [place] OMEGA 3 Yes None Univers ORAL 9-21 Entered ity of 15:48: [address] OMEGA 3 Yes None Univers ORAL 9-21 Entered ity of 15:48: [address] OMEGA 3 Yes None Univers ORAL 9-21 Entered ity of 15:48: [address] OMEGA 3 Yes None Univers ORAL 9-21 Entered ity of 15:48: [address] OMEGA 3 0 Yes None Univers ORAL 9-21 Entered ity of 15:48: [address] Vital Signs Vital Name Observation Time Observation Value Comments Source Systolic blood 2022-09-11 15:27:00 101 mm[Hg] Univer sity of pressure [place] [facility] Diastolic blood 2022-09-11 15:27:00 72 mm[Hg] Unive rsity of [facility] Heart rate 2022-09-11 15:27:00 98 /min Universi ty [facility] Body temperature 2022-09-11 15:27:00 36.72 Freya [facility] [place] [facility] Respiratory rate 2022-09-11 15:27:00 22 /min [facility] Body height 2022-09-11 15:27:00 157.5 cm [facility] Body weight 2022-09-11 15:27:00 54.148 kg Universi ty [facility] BMI 2022-09-11 15:27:00 21.83 kg/m2 [facility] Oxygen saturation in 2022-09-11 15:27:00 99 /min [facility] Arterial blood by [facility] Pulse oximetry Branch Systolic blood 2022-08-09 18:17:00 94 mm[Hg] Univer sity of pressure [facility] Diastolic blood 2022-08-09 18:17:00 62 mm[Hg] Unive rsity of pressure [facility] Heart rate 2022-08-09 18:17:00 71 /min Universi ty [facility] Body temperature 2022-08-09 18:17:00 36.61 Freya [facility] [place] [facility] Body height 2022-08-09 18:17:00 160 cm [facility] Body weight 2022-08-09 18:17:00 54.704 kg [facility] BMI 2022-08-09 18:17:00 21.36 kg/m2 [facility] Oxygen saturation in 2022-08-09 18:17:00 98 /min [facility] Arterial blood by [facility] Pulse oximetry Branch Systolic blood 2022-02-01 18:52:00 89 mm[Hg] Univer sity of pressure [facility] Diastolic blood 2022-02-01 18:52:00 55 mm[Hg] Unive rsity of [facility] Heart rate 2022-02-01 18:52:00 79 /min [facility] Body weight 2022-02-01 18:52:00 51.937 kg [facility] BMI 2022-02-01 18:52:00 20.94 kg/m2 [facility] Systolic blood 2021-12-21 12:12:41 99 mm[Hg] [facility] pressure Diastolic blood 2021-12-21 12:12:41 66 mm[Hg] [facility] [place] [facility] pressure Heart rate 2021-12-21 12:12:41 66 /min [facility] Body temperature 2021-12-21 12:12:41 36.17 Freya [facility] [place] Respiratory rate 2021-12-21 12:12:41 17 /min [facility] [place] Oxygen saturation in 2021-12-21 12:12:41 94 /min [facility] Arterial blood by Pulse oximetry Body weight 2021-12-21 10:31:46 52.889 kg [facility] BMI 2021-12-21 10:31:46 21.33 kg/m2 [facility] Body height 2021-12-13 17:15:00 157.5 cm [facility] Procedures Procedure Date / Time Performing Clinician Source Performed POCT URINALYSIS 2022-08-09 18:41:00 Andrzej Blue o f [facility] EXTERNAL PROVIDER RECORDS 2022-07-04 06:01:00 Doctor Unassigned, No [facility] HC COMPLETE BLD COUNT 2021-12-18 06:17:00 [facility]FF ANTI XA, UNFRACTIONATED 2021-12-18 06:14:00 TinAaron [facility] COMPREHENSIVE METABOLIC 2021-12-18 06:13:00 [facility] PANEL ESTIM[facility] GFR 2021-12-18 06:13:00 Aleks [facility] [place] [facility] spital SODIUM LEVEL 2021-12-17 22:05:00 Juan Arguello [facility] spital Bharatkumar ANTI XA, UNFRACTIONATED 2021-12-17 18:18:00 [facility] ANTI XA, UNFRACTIONATED 2021-12-17 09:19:[address] [facility] METABOLIC 2021-12-17 09:19:00 [facility] PANEL HC COMPLETE BLD COUNT 2021-12-17 09:19:00 [facility] W/AUTO DIFF LACTIC ACID LEVEL 2021-12-17 09:19:00 [facility] ESTIMATED GFR 2021-12-17 09:19:00 Anna [facility] [place] [facility] spital BASIC METABOLIC PANEL 2021-12-16 19:33:00 [facility] [place] [facility] LACTIC ACID LEVEL 2021-12-16 19:33:00 [facility] ESTIMATED GFR 2021-12-16 19:33:00 [facility] COVID-19 ANTI-SPIKE IGG 2021-12-16 08:03:00 Misbah [facility] ANTIBODY TITER Marciano COVID-19 SEROLOGY PATIENT 2021-12-16 08:03:00 Basil Crawley [facility] SURVEILLANCE Marciano BASIC METABOLIC PANEL 2021-12-16 07:32[facility] NATRIURETIC PEPTIDE 2021-12-16 07:32:00 Tin [facility] LACTIC ACID LEVEL 2021-12-16 07:32:00 Juan Arguello [facility] Bharatkumar BETA HYDROXYBUTYRATE 2021-12-16 07:32:00 [facility] Bhsuzytkumar ESTIMATED GFR 2021-12-16 07:32:00 [facility] HC COMPLETE BLD COUNT 2021-12-16 07:32:00 [facility] W/AUTO DIFF [facility] URINE CULTURE 2021-12-16 03:17:00 [facility] URINALYSIS SCREEN AND 2021-12-16 02:14:00 [facility] MICROSCOPY, WITH REFLEX Juan Antoniotkdakota TO CULTURE BASIC METABOLIC PANEL 2021-12-15 11:11:00 [facility] B NATRIURETIC PEPTIDE 2021-12-15 11:11:00 [facility] ESTIMATED GFR 2021-12-15 11:11:00 [facility] MAGNESIUM LEVEL 2021-12-15 11:11:00 Basil Crawley delmis Tariq HC COMPLETE BLD COUNT 2021-12-15 10:13:00 Basil Crawley [facility] W/AUTO DIFF Marciano TTE COMPLETE, W CONTRAST, 2021-12-14 17:10:00 [facility] W DOPPLER ([id number]) [facility] COVID-19 QUALITATIVE 2021-12-14 09:37:00 [place] [facility] RT-PCR BASIC METABOLIC PANEL 2021-12-14 09:37:00 [facility] B NATRIURETIC PEPTIDE 2021-12-14 09:37:00 [facility] LIPID PANEL 2021-12-14 09:37:00 [facility] HEMOGLOBIN A1C 2021-12-14 09:37:00 [facility] ESTIMATED GFR 2021-12-14 09:37:[address] [facility] [address] ABDOMEN PELVIS WO 2021-12-14 03:42:58 Reinier, Lisha Sanders [facility] CONTRAST TROPONIN T 2021-12-14 01:28:00 [facility] US DUPLEX VENOUS LOWER 2021-12-14 01:25:00 Aaron Castle [facility] EXTREMITY BILATERAL Sethuraman HC COMPLETE BLD COUNT 2021-12-13 20:00:00 [facility] W/AUTO DIFF COMPREHENSIVE METABOLIC 2021-12-13 20:00:00 [facility] PANEL TROPONIN T 2021-12-13 20:00:00 [facility] B NATRIURETIC PEPTIDE 2021-12-13 20:00:00 [facility] PARTIAL THROMBOPLASTIN 2021-12-13 20:00:00 [facility] TIME (PTT) PROTHROMBIN TIME WITH INR 2021-12-13 20:00:00 [facility] ESTIMATED GFR 2021-12-13 20:00:00 [facility] XR CHEST 2 VW 2021-12-13 19:50:53 [facility] ECG ED PRELIMINARY 2021-12-13 19:01:43 [place] [facility] [place] INTERPRETATION ECG 12-LEAD 2021-12-13 17:56:54 [facility] EXTERNAL PROVIDER RECORDS 2020-12-23 05:01:00 Doctor Unassigned, No [facility] Branch Plan of Care Planned Activity Planned Date Details Comments Source Future Scheduled 2022-10-20 COVID-[address] Test 16:00:28 (#1) [code = Hospital COVID-19 VACCINE (#1)] Future Scheduled 2022-10-20 Pneumococcal [facility] 16:00:28 Vaccine: [facility] Hospital (0 to 5 Years) and At-Risk Patients (6 to 64 Years) (1 - PCV) [code = Pneumococcal Vaccine: Pediatrics (0 to 5 Years) and At-Risk Patients (6 to 64 Years) (1 - PCV)] Future Scheduled 2022-10-20 Screening for [facility] 16:00:28 malignant neoplasm Hospital of cervix (procedure) [code = 225714684] Future Scheduled 2022-10-20 BREAST CANCER [facility] 16:00:28 SCREENING [code = Hospital BREAST CANCER SCREENING] Future Scheduled 2022-10-20 COLONOSCOPY [facility] 16:00:28 SCREENING [code = Hospital COLONOSCOPY SCREENING] Future Scheduled 2022-10-20 SHINGLES VACCINES (1 [facility] Test 16:00:28 of 2) [code = Hospital SHINGLES VACCINES (1 of 2)] Future Scheduled 2022-10-20 HEPATITIS B VACCINES [facility] Test 16:00:28 (1 of 3 - Risk Hospital 3-dose series) [code = HEPATITIS B VACCINES (1 of 3 - Risk 3-dose series)] Future Scheduled 2022-10-20 INFLUENZA VACCINE Method ist Test 16:00:28 [code = INFLUENZA Hospital VACCINE] Future Scheduled 2022-05-09 COVID-[address] Test 07:36:46 (#1) [code = Hospital COVID-19 VACCINE (#1)] Future Scheduled 2022-05-09 Pneumococcal [facility] 07:36:46 Vaccine: [facility] Hospital (0 to 5 Years) and At-Risk Patients (6 to 64 Years) (1 - PCV) [code = Pneumococcal Vaccine: Pediatrics (0 to 5 Years) and At-Risk Patients (6 to 64 Years) (1 - PCV)] Future Scheduled 2022-05-09 Screening for [facility] 07:36:46 malignant neoplasm Hospital of cervix (procedure) [code = 366518851] Future Scheduled 2022-05-09 BREAST CANCER [facility] 07:36:46 SCREENING [code = Hospital BREAST CANCER SCREENING] Future Scheduled 2022-05-09 COLONOSCOPY [facility] 07:36:46 SCREENING [code = Hospital COLONOSCOPY [...] versity of Test 00:00:00 (procedure) [code = [facility] dical [id number]] Branch Future Scheduled 2021-02-16 INFLUENZA VACCINE Postponed from Univ ersity of Test 00:00:00 (#1) [code = 04/20/2020 [facility] INFLUENZA VACCINE (Refused) Branch (#1)] Future Scheduled 2014 Screening for University of Test 00:00:00 malignant neoplasm [place] [facility] ical of lung (procedure) Branch [code = 301910132] Future Scheduled 2009 Screening for occult Uni versity of Test 00:00:00 blood in feces [facility] (procedure) [code = Branch [id number]] Future Scheduled 2009 Stool DNA-based Universi ty of Test 00:00:00 colorectal cancer [facility] screening Branch (procedure) [code = 076688228677290] Future Scheduled 2009 Flexible fiberoptic Univ ersity of Test 00:00:00 sigmoidoscopy [facility] (procedure) [code = Branch [id number]] Future Scheduled 2009 Screening for University of Test 00:00:00 malignant neoplasm [place] [facility] ical of colon (procedure) Branch [code = 084267624] Future Scheduled 2009 Screening for University of Test 00:00:00 malignant neoplasm [place] [facility] ical of colon (procedure) Branch [code = 972352900] Future Scheduled 2009 Zoster Recombinant Unive rsity of Test 00:00:00 Vaccine (SHINGRIX) [place] [facility] ical (1 of 2) [code = Branch Zoster Recombinant Vaccine (SHINGRIX) (1 of 2)] Future Scheduled 2009-06-07 Screening for University of Test 00:00:00 malignant neoplasm [place] [facility] ical of cervix Branch (procedure) [code = 680179622] Future Scheduled 2007-07-25 Screening for University of Test 00:00:00 malignant neoplasm [place] [facility] ical of breast Branch (procedure) [code = 904161492] Future Scheduled 1978 DTaP,Tdap,and Td Univers ity of Test 00:00:00 Vaccines (1 - Tdap) [place] [facility] [code = [place] DTaP,Tdap,and Td Vaccines (1 - Tdap)] Future Scheduled 1966 PNEUMOCOCCAL 0-64 Univer sity of Test 00:00:00 YEARS COMBINED [place] [facility] SERIES (1 of 3 - Branch PCV13) [code = PNEUMOCOCCAL 0-64 YEARS COMBINED SERIES (1 of 3 - PCV13)] Encounters Start End Encounter Admission Attending Care Care Encounter Source Date/Time Date/Time Type Type Clinicians Facility Department ID 2021-06-19 Emergency [facility] [id number] Univers 13:07:02 ity of [facility] 2021-06-19 Emergency [facility] [id number] Univers 11:59:00 ity of [facility] 2022-10-16 2022-10-16 Telephone [facility] 1.2.659.955 [id number] Univers 00:00:00 00:00:00 [facility] 350.1.13.10 it y of [place] 4.2.7.2.686 Mikey as [place]?BLEA [phone] [place] dical TROY [address] MEDICAL OFFICE [facility] 2022 2022 Telephone [facility] 1.2.024.153 [id number] [id number] Univers 00:00:00 00:00:00 [facility] 350.1.13.10 it y of [place] 4.2.7.2.686 Mikey as [place]ENTON?BLEA [phone] [place] dical TROY [address] MEDICAL OFFICE [facility] 2022-09-13 2022-09-13 Outpatient R HUDSON [facility] [id number] Univers 09:15:00 09:15:00 ANDRZEJ villalta [facility] 2022-09-11 2022-09-11 Outpatient Reshma MONTERO [facility] [id number] Univers 09:00:00 09:50:53 ROSA MARIA villalta [facility] 2022-09-11 2022-09-11 Urgent Rosa Maria Montero [facility] 1.2.840.114 1 [id number] Univers 09:00:00 09:50:53 Care Unknown, Attending [facility] 350.1.13.10 ity of [place] 4.2.7.2.686 Mikey as [place]ENTON?BLEA [phone] [place] dical [address] MEDICAL OFFICE [facility] 2022-09-11 2022-09-11 [facility]phone [facility] 1.2.707.365 [id number] [id number] Univers 00:00:00 00:00:00 Andrzej HEALTH 350.1.13.10 it y of [place] 4.2.7.2.686 Mikey as [place]ENTON?BLEA [phone] [address] OFFICE [facility] 2022-09-07 2022-09-07 [facility] 1.2.745.596 [id number] [id number] Univers 00:00:00 00:00:00 Andrzej HEALTH 350.1.13.10 it y of [place] 4.2.7.2.686 Mikey as [place]ENTON?BLEA [phone] [address] OFFICE [facility] 2022-08-10 2022-08-10 [facility]phone [facility] 1.2.884.527 [id number] [id number] Univers 00:00:00 00:00:00 [facility] 350.1.13.10 it y of [place] 4.2.7.2.686 Mikey as [place]ENTON?BLEA [phone] [address] OFFICE [facility] 2022-08-09 2022-08-09 Outpatient R HUDSON [facility] [id number] Univers 12:45:00 13:14:08 ANDRZEJ ity [facility] 2022-08-09 2022-08-09 Office [facility] 1.2.840.114 [id number] Univers 12:45:00 13:00:00 Visit [facility] 350.1.13.10 it y of [place] 4.2.7.2.686 Mikey as BRENTON?BLEA [phone] [address] OFFICE [facility] 2022-08-03 2022-08-03 Outpatient R HUDSON [facility] [id number] Univers 12:00:00 12:00:00 ANDRZEJ villalta [facility] 2022-07-25 2022-07-25 Telephone [facility] 1.2.898.658 [id number] Univers 00:00:00 00:00:00 [facility] 350.1.13.10 it y of [place] 4.2.7.2.686 Mikey as [place]ENTON?BLEA [phone] [address] MEDICAL OFFICE BUILDING 2022-07-04 2022-07-04 Orders Doctor KVNG 1.2.840.114 [id number] Univers 00:00:00 00:00:00 Only Unassigned, ROLANDO 350.1.13.10 ity of [place] [facility] 4.2.7.2.686 Mikey as [phone] [address] 2022-06-12 2022-06-12 Telephone [facility] 1.2.179.738 [id number] 1982 Univers 00:00:00 00:00:00 Andrzej HEALTH 350.1.13.10 it [facility] 4.2.7.2.686 Mikey as [place]ENTON?BLEA [phone] [address] MEDICAL OFFICE [facility] 2022-06-09 2022-06-09 Telephone [facility] 1.2.752.726 [id number] [id number] Univers 00:00:00 00:00:00 Andrzej HEALTH 350.1.13.10 it [facility] 4.2.7.2.686 Mikey as [place]ENTON?BLEA [phone] [address] MEDICAL OFFICE [facility] 2022-06-08 2022-06-08 [facility] 1.2.840.114 [id number] Univers 00:00:00 00:00:00 Andrzej HEALTH 350.1.13.10 it y [facility] 4.2.7.2.686 Mikey as [place]ON?BLEA [phone] [address] MEDICAL OFFICE [facility] 2022-06-08 2022-06-08 [facility] 1.2.840.114 [id number] Univers 00:00:00 00:00:00 Andrzej HEALTH 350.1.13.10 it y of [place] 4.2.7.2.686 Mikey as BRENTON?BLEA [phone] [address] MEDICAL OFFICE [facility] 2022-06-06 2022-06-06 Refbehzad [facility] 1.2.840.114 [id number] Univers 00:00:00 00:00:00 Andrzej HEALTH 350.1.13.10 it y of [place] 4.2.7.2.686 Mikey as [place]ENTON?BLEA [phone] Ks wandy[address] OFFICE [facility] 2022-06-06 2022-06-06 Telephone [facility] 1.2.416.505 [id number] [id number] Univers 00:00:00 00:00:00 [facility] 350.1.13.10 it y of [place] 4.2.7.2.686 Mikey as [place]ENTON?BLEA [phone] [address] OFFICE [facility] 2022-06-02 2022-06-02 Refill [facility] 1.2.840.114 [id number] 12 Univers 00:00:00 00:00:00 [place] [address].1.13.10 it y of [place] 4.2.7.2.686 Mikey as BRENTON?BLEA [phone] [address] 2022-05-10 2022-05-10 Outpatient [facility] [id number] Univers 14:00:00 14:00:00 [facility] 2022-02-24 2022-02-24 Patient Jacquie, 1.2.840.1 [id number] Methodi 00:00:00 00:00:00 Outreach Loyda A 20114.1.[address] 3.430.2.7 Hospit a .3.255725 l .8 2022-02-24 2022-02-24 Patient Jacquie, 1.2.840.1 [id number] 0670 Methodi 00:00:00 00:00:00 Outreach Loyda A 23049.1.[address] 3.430.2.7 Hospit a .3.683479 l .8 2022-02-17 2022-02-17 Patient Jacquie, 1.2.840.1 [id number] 0190 Methodi 00:00:00 00:00:00 Outreach Loyda A 55223.1.[address] 3.430.2.7 Hospit a .3.540044 l .8 2022-02-17 2022-02-17 Patient Jacquie, 1.2.840.1 [id number] 3137 Methodi 00:00:00 00:00:00 Outreach Loyda A 27291.1.[address] 3.430.2.7 Hospit a .3.153458 l .8 2022-02-07 2022-02-07 Patient Jacquie, 1.2.840.1 [id number] 1642 Methodi 00:00:00 00:00:00 Outreach Loyda A 54291.1.[address] 3.430.2.7 Hospit a .3.101446 l .8 2022-02-07 2022-02-07 Patient Jacquie, 1.2.840.1 [id number] 0269 Methodi 00:00:00 00:00:00 Outreach Loyda A 02990.1.[address] 3.430.2.7 Hospit a .3.431427 l .8 2022-02-06 2022-02-06 Patient Jacquie, 1.2.840.1 [id number] 5943 Methodi 00:00:00 00:00:00 Outreach Loyda A 59083.1.[address] 3.430.2.7 Hospit a .3.164276 l .8 2022-02-06 2022-02-06 Telephone Hudson [facility] 1.2.422.815 [id number] 1854 Univers 00:00:00 00:00:00 [place] 7[address].1.13.10 it y of [place] 4.2.7.2.686 Mikey as BRENTON?BLEA [phone] [address] OFFICE BUILDING 2022-02-06 2022-02-06 Patient Jacquie, 1.2.840.1 [id number] Methodi 00:00:00 00:00:00 Outreach Loyda A 99958.1.[address] 3.430.2.7 Hospit a .3.211026 l .8 2022-02-01 2022-02-01 Office [facility] 1.2.840.114 [id number] 21 Univers 15:00:00 15:15:00 Visit [facility] 350.1.13.10 it y of [place] 4.2.7.2.686 Mikey as [place]ENTON?BLEA [phone] Ks jaskaran SIMMONS [address] [place] [address] OFFICE [facility] 2022-02-01 2022-02-01 Outpatient Reshma BLUE [facility] [id number] Univers 15:00:00 15:00:00 ANDRZEJ tam [facility] 2022-02-01 2022-02-01 Outpatient Reshma BLUE [facility] [id number] Univers 15:00:00 14:06:03 [facility]-01 2022-02-01 Telephone [facility] 1.2.122.198 [id number] Univers 00:00:00 00:00:00 [facility] 350.1.13.10 it y of [place] 4.2.7.2.686 Mikey as BRENTON?BLEA [phone] [address] OFFICE [facility] 2022-02-01 2022-02-01 Telephone [facility] 1.2.618.813 [id number] [id number] Univers 00:00:00 00:00:00 [facility] 350.1.13.10 it y of [place] 4.2.7.2.686 Mikey as BRENTON?BLEA [phone] [address] OFFICE [facility] 2022-01-26 2022-01-26 Outpatient Reshma BLUE [facility] [id number] Univers 13:15:00 13:15:00 [facility] 2022-01-20 2022-01-20 Patient Jacquie, 1.2.840.1 [id number] Methodi 00:00:00 00:00:00 Outreach Loyda A 54598.1.[address] 3.430.2.7 Hospit a .3.951076 l .8 2022-01-20 2022-01-20 Patient Jacquie, 1.2.840.1 [id number] Methodi 00:00:00 00:00:00 Outreach Loyda A 79372.1.[address] 3.430.2.7 Hospit a .3.590846 l .8 2022-01-13 2022-01-13 Patient Jacquie, 1.2.840.1 [id number] 8457 Methodi 00:00:00 00:00:00 Outreach Loyda A 30315.1.[address] 3.430.2.7 Hospit a .3.435187 l .8 2022-01-13 2022-01-13 Patient Jacquie, 1.2.840.1 [id number] 4654 Methodi 00:00:00 00:00:00 Outreach Loyda A 96954.1.[address] 3.430.2.7 Hospit a .3.607032 l .8 2022-01-09 2022-01-09 Telephone MOLLY Blue 1.2.387.877 0237 7817 Univers 00:00:00 00:00:00 [facility] 350.1.13.10 it y of [place] 4.2.7.2.686 Mikey as [place]ENTON?BLEA [phone] [address] MEDICAL OFFICE BUILDING 2022-01-04 2022-01-04 Orders Doctor KVNG 1.2.840.114 [id number] Univers 00:00:00 00:00:00 Only Unassigned, ROLANDO 350.1.13.10 ity of [place] [facility] 4.2.7.2.686 Mikey as [phone] [address] 2022-01-02 2022-01-02 Patient Jacquie, 1.2.840.1 [id number] Methodi 00:00:00 00:00:00 Outreach Loyda A 19792.1.[address] 3.430.2.7 Hospit a .3.215036 l .8 2022-01-02 2022-01-02 Patient Jacquie, 1.2.840.1 [id number] 1306 Methodi 00:00:00 00:00:00 Outreach Loyda A [address]184.1.[address] 3.430.2.7 Hospit a .3.965003 l .8 2021-12-28 2021-12-28 Office Hudson [facility] 1.2.840.114 [id number] 01 Univers 13:00:00 13:15:00 Visit [facility] 350.1.13.10 it y of [place] 4.2.7.2.686 Mikey as BRENTON?BLEA [phone] [address] OFFICE [facility] 2021-12-28 2021-12-28 [facility] [id number] Univers 13:00:00 13:00:00 ANDRZEJ villalta [facility] 2021-12-27 2021-12-27 Patient Jacquie, 1.2.840.1 [id number] 0130 Methodi 00:00:00 00:00:00 Outreach Loyda A 95173.1.[address] 3.430.2.7 Hospit a .3.015295 l .8 2021-12-27 2021-12-27 [facility]phone [facility] 1.2.810.964 9560 9226 [facility] 00:00:00 00:00:00 [facility] 350.1.13.10 it y [facility] 4.2.7.2.686 Mikey as BRENTON?BLEA [phone] [address] OFFICE [facility] 2021-12-27 2021-12-27 Patient Jacquie, 1.2.840.1 [id number] Methodi 00:00:00 00:00:00 Outreach Loyda A 45801.1.[address] 3.430.2.7 Hospit a .3.145154 l .8 2021-12-26 2021-12-26 Patient Jacquie, 1.2.840.1 [id number] 1320 Methodi 00:00:00 00:00:00 Outreach Loyda A 78497.1.[address] 3.430.2.7 Hospit a .3.069482 l .8 2021-12-26 2021-12-26 Patient Jacquie, 1.2.840.1 [id number] 5205 Methodi 00:00:00 00:00:00 Outreach Loyda A 60247.1.[address] 3.430.2.7 Hospit a .3.051242 l .8 2021-12-22 2021-12-22 Orders Doctor KVNG 1.2.840.114 [id number] Univers 00:00:00 00:00:00 Only Unassigned, ROLANDO 350.1.13.10 ity of [place] [facility] 4.2.7.2.686 Mikey as [phone] [place] [address] [facility] 2021-12-13 2021-12-21 [facility] 1.2.840.1 10 [id number] Methodi 12:23:00 13:11:00 Encounter Jaguar [place] 30483.1.1 1 48 [facility], Joseyour Setraman 3.430.2.7 [facility] .3.904602 l .8 2021-12-13 2021-12-21 [facility] Lisha Tommy 1.2.840.1 10 [id number] Methodi 12:23:00 13:11:00 Encounter [place]ar [place] 16157.1.1 1 48 [facility], [facility] 3.430.2.7 [facility] .3.952301 l .8 2021-12-21 2021-12-21 Nurse Only Melvin, 1.2.840.1 [id number] Methodi 00:00:00 00:00:[address] 3.430.2.7 Hospit a .3.892398 l .8 2021-12-21 2021-12-21 Patient Varghese Bateman 1.2.840.1 [id number] 21 [id number] Methodi 00:00:00 00:00:[address] 3.430.2.7 Hospit a .3.551269 l .8 2021-12-21 2021-12-21 Travel 1.2.840.1 1.2.207.880 2451 [id number] Methodi 00:00:00 00:00:[address] 3.430.2.7 0.2.7.3.698 Ho spita .3.170481 084.8 l .8 2021-12-21 2021-12-21 [facility]phone [facility] 1.2.839.428 [id number] 5493 Univers 00:00:00 00:00:00 [facility] 350.1.13.10 it y of [place] 4.2.7.2.686 Mikey as BRENTON?BLEA [phone] [address] OFFICE [facility] 2021-12-21 2021-12-21 Telephone [facility] 1.2.351.524 9413 6528 Univers 00:00:00 00:00:00 [facility] 350.1.13.10 it y of [place] 4.2.7.2.686 Mikey as BRENTON?BLEA [id number] [address] OFFICE [facility] 2021-12-21 2021-12-21 [facility]phone [facility] 1.2.564.677 2326 9528 Univers 00:00:00 00:00:00 [facility] 350.1.13.10 it y of [place] 4.2.7.2.686 Mikey as BRENTON?BLEA [phone] [address] OFFICE [facility] 2021-12-21 2021-12-21 Nurse Only Melvin, 1.2.840.1 [id number] Methodi 00:00:00 00:00:[address] 3.430.2.7 Hospit a .3.375380 l .8 2021-12-21 2021-12-21 Patient Varghese Bateman 1.2.840.1 [id number] 21 [id number] Methodi 00:00:00 00:00:[address] 3.430.2.7 Hospit a .3.901468 l .8 2021-12-21 2021-12-21 Travel 1.2.840.1 1.2.413.086 3975 [id number] Methodi 00:00:00 00:00:[address] 3.430.2.7 0.2.7.3.698 Ho spita .3.512663 084.8 l .8 2021-12-20 2021-12-20 [facility]phone [facility] 1.2.718.859 6448 9423 Univers 00:00:00 00:00:00 [facility] 350.1.13.10 it y of [place] 4.2.7.2.686 Mikey as [place]ENTON?BLEA [phone] [address] MEDICAL OFFICE BUILDING 2021-11-09 2021-11-09 Outpatient Reshma MURRELL [facility] [id number] Univers 15:20:00 15:20:00 MONTSERRAT andreay o f [facility] 2021-11-09 2021-11-09 Orders Doctor KVNG 1.2.840.114 [id number] Univers 00:00:00 00:00:00 Only Unassigned, ROLANDO 350.1.13.10 ity of [place] [facility] 4.2.7.2.686 Mikey as [phone] [facility] [address] [place] 2021-11-03 2021-11-03 Outpatient [facility] [id number] Univers 13:15:00 13:15:00 ANDRZEJ tam [facility] 2021-11-02 2021-11-02 Outpatient Reshma [facility] [id number] Univers 12:00:00 12:00:00 ANDRZEJ tam [facility] 2021-10-23 2021-10-23 Emergency [facility] [id number] Univers 10:57:00 14:51:00 NIKOS pawan [facility] 2021-10-23 2021-10-23 Emergency [facility] 1.2.958.773 [id number] 4289 Univers 10:57:00 14:51:[address] [facility] 350.1.13.10 i ty [facility] 4.2.7.2.686 [place] [facility] [phone] [facility] [address] [place] 2021-10-16 2021-10-16 Emergency [facility] [id number] Univers 08:57:00 11:17:00 YULI villalta [facility] 2021-10-16 2021-10-16 Emergency [facility] 1.2.840.114 91 [id number] Univers 08:57:00 11:17:00 Yuli CASTILLO 350.1.13.10 ity of [place] 4.2.7.2.686 [place] [phone] [facility] [address] [place] 2021-10-16 2021-10-16 Orders Doctor KVNG 1.2.840.114 [id number] Univers 00:00:00 00:00:00 Only Unassigned, ROLANDO 350.1.13.10 ity of [place] [facility] 4.2.7.2.686 Mikey as [phone] [facility] [address] [place] 2021-10-11 2021-10-11 [facility]patient [facility] [id number] 747 Univers 10:15:00 10:43:38 ANDRZEJ ittam [facility] 2021-09-30 2021-09-30 Telephone [facility] 1.2.387.237 0976 5915 Univers 00:00:00 00:00:00 [facility] 350.1.13.10 it y of [place] 4.2.7.2.686 Mikey as BRENTON?BLEA [phone] [address] OFFICE [facility] 2021-09-20 2021-09-20 [facility] 1.2.616.944 1535 8500 Univers 00:00:00 00:00:00 Andrzej HEALTH 350.1.13.10 it y of [place] 4.2.7.2.686 Mikey as BRENTON?BLEA [id number] [address] OFFICE [facility] 2021-08-04 2021-08-04 [facility] 1.2.158.984 2960 4545 Univers 00:00:00 00:00:00 Andrzej HEALTH 350.1.13.10 it y of [place] 4.2.7.2.686 Mikey as BRENTON?BLEA [phone] [address] OFFICE [facility] 2021-08-03 2021-08-03 [facility] 1.2.840.114 [id number] 466 Univers 13:09:41 23:59:00 Encounter Andrzej HEALTH 350.1.13.10 [facility]y [facility] 4.2.7.2.686 Mikey as BRENTON?BLEA [phone] [place] jaskaran SIMMONS [address] [place] MEDICAL OFFICE [facility] 2021-08-03 2021-08-03 Outpatient R HUDSON [facility] [id number] Univers 12:00:00 13:12:07 ANDRZEJ villalta [facility] 2021-08-03 2021-08-03 Outpatient R HUDSON [facility] [id number] Univers 13:09:41 13:09:41 ANDRZEJ villalta [facility] 2021-08-03 2021-08-03 Office [facility] 1.2.840.114 [id number] Univers 12:00:00 12:15:00 Visit [facility] 350.1.13.10 it y of [place] 4.2.7.2.686 Mikey as BRENTON?BLEA [phone] [facility] 044 [facility] OFFICE [facility] 2021-08-03 2021-08-03 [facility]phone [facility] 1.2.469.710 0702 8468 Univers 00:00:00 00:00:00 Andrezj HEALTH 350.1.13.10 it y of [place] 4.2.7.2.686 Mikey as BRENTON?BLEA [phone] [address] OFFICE [facility] 2021-08-01 2021-08-01 Orders Doctor KVNG 1.2.840.114 [id number] 94 Univers 00:00:00 00:00:00 Only Unassigned, ROLANDO 350.1.13.10 ity of [place] [facility] 4.2.7.2.686 Mikey as [phone] [address] 2021-07-12 2021-07-12 [facility]phone [facility] 1.2.344.464 4404 1566 Univers 00:00:00 00:00:00 Andrzej HEALTH 350.1.13.10 it y [facility] 4.2.7.2.686 Mikey as BRENTON?BLEA [phone] [address] MEDICAL OFFICE [facility] 2021-06-28 2021-06-28 Telephone [facility] 1.2.314.043 5589 8725 Univers 00:00:00 00:00:00 Andrzej HEALTH 350.1.13.10 it y [facility] 4.2.7.2.686 Mikey as [place]ENTON?BLEA [phone] [address] OFFICE [facility] 2021-06-24 2021-06-24 Refbehzad Blue [facility] 1.2.840.114 [id number] 67 Univers 00:00:00 00:00:00 [facility] 350.1.13.10 it y [facility] 4.2.7.2.686 Mikey as BRENTON?BLEA [phone] [address] OFFICE [facility] 2021-05-04 2021-05-04 Office [facility] 1.2.840.114 [id number] 13 Univers 12:08:03 12:23:03 Visit [facility] 350.1.13.10 it y of [place] 4.2.7.2.686 Mikey as Brenton?Blea [phone] [address] Office [facility] 2021-05-04 2021-05-04 Outpatient Reshma BLUE [facility] [id number] [facility] 12:00:00 12:00:00 ANDRZEJ villalta [facility] 2021-05-04 2021-05-04 Orders Doctor KVNG 1.2.840.114 [id number] 02 Univers 00:00:00 00:00:00 Only Unassigned, ROLANDO 350.1.13.10 ity of [place] [facility] 4.2.7.2.686 Mikey as [phone] [address] 2021-05-04 2021-05-04 Orders Doctor KVNG 1.2.840.114 [id number] 02 Univers 00:00:00 00:00:00 Only Unassigned, ROLANDO 350.1.13.10 ity of [place] [facility] 4.2.7.2.686 Mikey as [id number] [address] 2021-02-02 2021-02-02 [facility]patient [facility] 258 [id number] 504 [place] 00:00:00 00:00:[address] NADIM [address] 2021-02-01 2021-02-01 Jennifer [facility] 1.2.840.114 [id number] 40 Univers 00:00:00 00:00:00 [facility] 350.1.13.10 it y of [place] 4.2.7.2.686 Mikey as Professio [phone] [place] dical nal 044 [facility] 2021-01-27 2021-01-27 Outpatient VICTORIA, [facility] [id number] [place] 00:00:00 00:00:00 NADIM [address] 2021-01-11 2021-01-11 Office [place] [facility] 1.2.840.114 [id number] Univers 09:28:35 09:43:35 Visit [facility] 350.1.13.10 it y of [place] 4.2.7.2.686 Mikey as Professio [phone] [place] dical nal 044 [facility] One 2021-01-11 2021-01-11 Outpatient Reshma [facility] [id number] Univers 09:30:00 09:30:00 ANDRZEJ villalta [facility] 2020-12-23 2020-12-23 Orders Doctor K[facility] 1.2.840.114 [id number] 00:00:00 00:00:00 Only Unassigned, ROLANDO 350.1.13.10 [facility] 4.2.7.2.[phone] [facility] 2020-12-23 2020-12-23 Orders Doctor KVNG 1.2.840.114 [id number] Univers 00:00:00 00:00:00 Only Unassigned, ROLANDO 350.1.13.10 ity of [facility] 4.2.7.2.686 Mikey as [phone] [address] 2020-12-06 2020-12-06 Outpatient Reshma [facility] [id number] Univers 10:15:00 10:15:00 ANDRZEJ villalta [facility] 2020-12-04 2020-12-06 Inpatient YASIR, [facility] [id number] [employer] [place] 00:00:00 00:00:00 JENNIFER [address] 2020-12-05 2020-12-05 [facility] 1.2.705.988 [id number] 00:00:00 00:00:00 [facility] 350.1.13.10 [place] 4.2.7.2.686 Professio [phone] [place] [address] [address] One 2020-12-05 2020-12-05 [facility] 1.2.544.585 [id number] Univers 00:00:00 00:00:00 [facility] 350.1.13.10 it y of [place] 4.2.7.2.686 Mikey as Professio [phone] [address] Office [facility] 2020-12-02 2020-12-02 Emergency [facility] 1.2.665.529 [id number] 10:56:00 12:00:00 Lori R [place] 350.1.13.10 [place] 4.2.7.2.686 [place] [phone] [facility] 2020-12-02 2020-12-02 Emergency [facility] 1.2.656.203 [id number] [facility] 10:56:00 12:00:00 Lori R [place] 350.1.13.10 i ty of [place] 4.2.7.2.686 [place] [facility] [phone] [address] 2020-12-02 2020-12-02 Urgent Provider, [facility] 1.2.203.556 [id number] 07:50:30 09:40:15 [facility] 350.1.13.10 Care [place] 4.2.7.2.686 Professio [phone] [place] [address] [address] 2020-12-02 2020-12-02 Urgent Provider, [facility] 1.2.840.114 [id number] [facility] 07:50:30 09:40:15 Care Anene, [facility] 350.1.13.10 ity of [place] 4.2.7.2.686 Mikey as Professio [phone] [address] Office [facility] 2020-12-02 2020-12-02 Outpatient [facility] [id number] Univers 09:20:00 09:20:00 SILVANO ity [facility] 2020-12-02 2020-12-02 [facility] 1.2.147.762 [id number] 00:00:00 00:00:00 [facility] 350.1.13.10 [place] 4.2.7.2.686 Professio [phone] [place] [address] [address] [facility] 2020-12-02 2020-12-02 [facility] 1.2.308.008 [id number] Univers 00:00:00 00:00:00 [facility] 350.1.13.10 it y of [place] 4.2.7.2.686 Mikey as Professio [phone] [place] dic[address] Office [facility] One 2020-11-30 2020-11-30 [place] [facility] [id number] [id number] 00:00:00 00:00:00 [facility] 350.1.13.10 [place] 4.2.7.2.686 Professio [phone] [place] [address] Office [facility] One 2020-11-30 2020-11-30 [place] [facility] 1.2.667.790 [id number] [facility] 00:00:00 00:00:00 [facility] 350.1.13.10 it y of [place] 4.2.7.2.686 Mikey as Professio [phone] [address] 2020-11-26 2020-11-27 Emergency [facility] 1.2.840.114 [id number] 21:15:00 00:04:00 Ernestina Reyeston 350.1.13.10 [place] 4.2.7.2.686 [place] [phone] [facility] 2020-11-26 2020-11-27 Emergency [facility] 1.2.840.114 [id number] [facility] 21:15:00 00:04:00 Ernestina Brito [place] 350.1.13.10 ity of [place] 4.2.7.2.686 [place] [facility] [phone] [address] 2020-11-27 2020-11-27 Nurse Hemalatha CALDERON 1.2.840.114 [id number] 00:00:00 00:00:00 Triage ROLANDO Ring 350.1.13.10 [facility] 4.2.7.2.686 [phone] [id number] 2020-11-27 2020-11-27 Nurse Hemalatha CALDERON 1.2.840.114 [id number] Univers 00:00:00 00:00:00 Triage ROLANDO Ring 350.1.13.10 ity of [facility] 4.2.7.2.686 Mikey as [phone] [address] 2020-09-22 2020-09-22 Telephone [facility] 1.2.870.731 [id number] 00:00:00 00:00:00 [facility] 350.1.13.10 [place] 4.2.7.2.686 Professio [phone] [place] [address] [address] 2020-09-22 2020-09-22 [facility]phone [facility] 1.2.730.716 [id number] [facility] 00:00:00 00:00:00 [facility] 350.1.13.10 it y of [place] 4.2.7.2.686 Mikey as Professio [phone] [place] dic[address] Office [facility] One 2020-09-01 2020-09-01 [facility] 1.2.840.114 [id number] 12:28:02 12:43:02 Visit [facility] 350.1.13.10 [place] 4.2.7.2.686 Professio [phone] [place] [address] Office [facility] One 2020-09-01 2020-09-01 [facility] 1.2.840.114 [id number] Univers 12:28:02 12:43:02 Visit [facility] 350.1.13.10 it y of [place] 4.2.7.2.686 Mikey as Professio [phone] [address] Office [facility] One 2020-09-01 2020-09-01 Outpatient R HUDSON [facility] [id number] Univers 12:00:00 12:00:00 ANDRZEJ villalta [facility] 2020-08-23 2020-08-23 [facility]phone [facility] 1.2.695.930 [id number] Univers 00:00:00 00:00:00 Andrzej Health 350.1.13.10 it y of [place] 4.2.7.2.686 Mikey as Professio [phone] [place] dical nal 044 [facility] 2020-08-19 2020-08-19 Orders Doctor KVNG 1.2.840.114 [id number] Univers 00:00:00 00:00:00 Only Unassigned, ROLANDO 350.1.13.10 ity of [facility] 4.2.7.2.686 Mikey as [phone] [address] 2020-07-29 2020-07-29 Telephone [facility] 1.2.540.152 [id number] Univers 00:00:00 00:00:00 Andrzej Health 350.1.13.10 it y of [place] 4.2.7.2.686 Mikey as Professio [phone] [place] dical nal 044 [facility] 2020-07-28 2020-07-28 Hospital [facility] 1.2.840.114 [id number] Univers 13:51:50 23:59:00 Encounter Consuelo Rod [facility] 350.1.13.10 ity of Surgical 4.2.7.2.686 Mikey as Specialti [phone] [place] dical es 809 [facility] 2020-07-28 2020-07-28 Outpatient R [facility] [id number] Univers 13:51:50 23:59:00 CONSUELO ity of [facility] 2020-07-28 2020-07-28 Office [facility] 1.2.338.474 [id number] Univers 13:19:49 14:14:10 Visit Consuelo Rod [facility] 350.1.13.10 it y of Surgical 4.2.7.2.686 Mikey as Specialti [phone] [place] dical es 198 [facility] 2020-07-27 2020-07-27 Orders Doctor [facility] 1.2.840.114 [id number] Univers 00:00:00 00:00:00 Only Unassigned, ROLANDO 350.1.13.10 ity of [facility] 4.2.7.2.686 Mikey as [phone] [address] 2020-07-21 2020-07-21 Hospital [facility] 1.2.840.114 [id number] Univers 14:30:00 23:59:00 Encounter Andrzej Castillo 350.1.13.10 ity of [place] 4.2.7.2.686 [place] [facility] [phone] [facility] [address] [place] 2020-07-21 2020-07-21 Office [facility] 1.2.840.114 [id number] Univers 13:10:30 13:40:30 Visit Andrzej [facility] 350.1.13.10 it y of [place] 4.2.7.2.686 Mikey as Professio [phone] [place] dic[address] Office [facility] 2020-07-21 2020-07-21 [facility] [id number] Univers 13:30:00 13:30:00 ANDRZEJ villalta [facility] 2020-07-09 2020-07-09 Telephone [facility] 1..113.127 [id number] Univers 00:00:00 00:00:00 Andrzej [facility] 350.1.13.10 it y of [place] 4.2.7.2.686 Mikey as Professio [phone] [address] Office [facility] 2020-07-05 2020-07-05 Outpatient Reshma [facility] [id number] Univers 14:30:00 14:30:00 ANDRZEJ villalta [facility] 2020-07-05 2020-07-05 Telephone [facility] 1..886.100 [id number] Univers 00:00:00 00:00:00 Andrzej [facility] 350.1.13.10 it y of [place] 4.2.7.2.686 Mikey as Professio [phone] [place] dical nal [address] [place] [address] Office [facility] 2020-06-29 2020-07-04 Inpatient AKINS, [facility] [id number] [place] 00:00:00 00:00:[address] 2020-06-30 2020-06-30 Orders Doctor KVNG 1..840.114 [id number] Univers 00:00:00 00:00:00 Only Unassigned, ROLANDO 350.1.13.10 ity of [facility] 4.2.7.2.686 Mikey as [phone] [address] 2020-06-22 2020-06-22 Outpatient R KATHIE [facility] [id number] Univers 10:00:00 10:00:00 SENDIL ity of [facility] 2020-06-22 2020-06-22 Telephone [facility] 1.2.165.941 [id number] Univers 00:00:00 00:00:00 Andrzej Health 350.1.13.10 it y of [place] 4.2.7.2.686 Mikey as Professio [phone] [address] Office [facility] 2020-06-22 2020-06-22 Telephone [facility] 1.2.926.705 [id number] Univers 00:00:00 00:00:00 Andrzej Health 350.1.13.10 it y of [place] 4.2.7.2.686 Mikey as Professio [phone] [address] Office [facility] 2020-06-21 2020-06-21 Telephone [facility] 1.2.678.886 [id number] Univers 00:00:00 00:00:00 Andrzej Health 350.1.13.10 it y of [place] 4.2.7.2.686 Mikey as Professio [phone] [address] Office [facility] 2020-06-17 2020-06-17 Office Hudson [facility] 1.2.840.114 [id number] Univers 14:05:17 14:53:39 Visit [facility] 350.1.13.10 it y of [place] 4.2.7.2.686 Mikey as Professio [phone] [address] Office [facility] One 2020-06-17 2020-06-17 Outpatient R HUDSON [facility] [id number] Univers 14:30:00 14:30:00 ANDRZEJ ity of [facility] 2020-06-14 2020-06-14 Telephone [facility] 1.2.852.214 [id number] Univers 00:00:00 00:00:00 Andrzej Health 350.1.13.10 it y of [place] 4.2.7.2.686 [place]key as Professio [phone] [address] 2020-06-01 2020-06-01 Refbehzad Blue [facility] 1.2.840.114 [id number] Univers 00:00:00 00:00:00 Andrzej Mena 350.1.13.10 it y of [place] 4.2.7.2.686 Mikey as Professio [phone] [address] 2020-03-17 2020-03-17 [facility]phone [facility] 1.2.168.158 [id number] Univers 00:00:00 00:00:00 Andrzej Castillo 350.1.13.10 [place].2.[place] [phone] [address] 2020-02-26 2020-02-26 Outpatient Reshma [facility] [id number] Univers 12:00:00 12:00:00 ANDRZEJ villalta [facility] 2020-02-26 2020-02-26 Office [facility] 1.2.840.114 [id number] Univers 10:19:41 10:34:41 Visit Andrzej Castillo 350.1.13.10 i ty of [place] 4.2.7.2.686 [place] [phone] [address] 2020-02-26 2020-02-26 Outpatient Reshma BLUE [facility] [id number] Univers 10:15:00 10:15:00 ANDRZEJ villalta [facility] 2020-02-23 2020-02-23 Refbehzad [facility] 1.2.840.114 [id number] Univers 00:00:00 00:00:00 Andrzej Mena 350.1.13.10 it y of [place] 4.2.7.2.686 Mikey as Professio [phone] [address] 2019-11-21 2019-11-21 Telephone [facility] 1.2.699.825 [id number] Univers 00:00:00 00:00:00 Andrzej Mena 350.1.13.10 it y of [place] 4.2.7.2.686 Mikey as Evelina [phone] [place] dical nal [address] [place] Office [address] 2019-03-19 2019-03-19 Orders Doctor KV[facility] 1.2.840.114 [id number] Univers 00:00:00 00:00:00 Only Unassigned, ROLANDO 350.1.13.10 ity of [place] [facility] 4.2.7.2.686 Mikey as [phone] [address] Results Test Description Test Time Test Comments Results Result Comments Source POCT URINALYSIS W SPECIFIC GRAVITY 2022-08-09 18:42:00 Test Item Value Reference Range Interpretation Comme nts POCT U SP GRAV (test code = 3255) 1.015 mg/dl 1.005-1.025 POCT PH U (test code = 3254) 5 mg/dl 5-8 POCT U LEUK EST (test code = 3263) negative Negative - Negative POCT U NIT (test code = 3262) negative Negative - Negative POCT U PROT (test code = 3259) +/30 Negative - Negative A POCT U GLU (test code = 3256) normal Negative - Negative POCT U KETONE (test code = 3258) negative Negative - Negative POCT U UROBILI (test code = 3260) 1 mg/dl 0.2-1 POCT U BILI (test code = 3261) negative Negative - Negative POCT U BLD (test code = 3257) about 250 Negative - Negative A POCT U COLOR (test code = 3266) light yellow POCT U APPEAR (test code = 3267) hazy Lab Interpretation (test code = 14502-9) Abnormal [facility] URINALYSIS W SPECIFIC [id number] 18:42:00 Test Item Value Reference Range Interpretation Comments POCT U SP GRAV (test code = 1.015 mg/dl 1.005-1.025 3255) POCT PH U (test code = 3254) 5 mg/dl 5-8 POCT U LEUK EST (test code = negative Negative - Negative 3263) POCT U NIT (test code = negative Negative - Negative 3262) POCT U PROT (test code = +/30 Negative - Negative A 3259) POCT U GLU (test code = normal Negative - Negative 3256) POCT U KETONE (test code = negative Negative - Negative 3258) POCT U UROBILI (test code = 1 mg/dl 0.2-1 3260) POCT U BILI (test code = negative Negative - Negative 3261) POCT U BLD (test code = about 250 Negative - Negative A 3257) POCT U COLOR (test code = light yellow 3266) POCT U APPEAR (test code = hazy 3267) Lab Interpretation (test Abnormal code = 09094-3) [id number] 04:06:00 Test Item Value Reference Range Interpretation Comments Urine culture (test SEE COMMENT Bacteriu chantel screen code = 9278051) negative. [facility] [place] [id number] 04:06:00 Test Item Value Reference Range Interpretation Comments Urine culture (test SEE COMMENT Bacteriu chantel screen code = 4499022) negative. [facility] ([facility]OVID-19) RNA [Presence] in Respiratory specimen by TALIA with probe [id number] 08:02:04 Test Item Value Reference Range Interpretation Comments SARS-CoV-2 (COVID-19) RNA Not detected [Presence] in Respiratory specimen by TALIA with probe detection (test code = 91856-0) Whether patient is employed in a Unknown healthcare setting (test code = 70253-8) Whether the patient has symptoms Unknown related to condition of interest (test code = 96373-1) Whether the patient was Unknown hospitalized for condition of interest (test code = 20451-4) Whether the patient was admitted Unknown to intensive care unit (ICU) for condition of interest (test code = 67548-9) Whether patient resides in a Unknown congregate care setting (test code = 78723-8) status (test code = Unknown 74887-9) Date and time of symptom onset Unknown (test code = 05763-2) JO ANN SOUZA 12 [id number] 03:40:47 Test Item Value Reference Range Interpretation Comments Ventricular rate (test 69 code = 253) Atrial rate (test code 69 = 255) UT interval (test code 132 = 266) QRSD interval (test 146 code = 260) QT interval (test code 528 = 264) QTC interval (test code 565 = 265) P axis 1 (test code = 45 267) QRS axis 1 (test code = 124 268) T wave axis (test code 27 = 270) EKG impression (test Ventricular-paced code = 273) rhythm with occasional premature ventricular complexes-Abnormal ECG-In automated comparison with ECG of 02-FEB-2021 08:17,-premature ventricular complexes are now present-Vent. rate has decreased BY 3 BPM- [facility] 12 [id number] 03:40:47 Test Item Value Reference Range Interpretation Comments Ventricular rate (test code = 253) Atrial rate (test code = 255) UT interval (test code = 266) QRSD interval [...] present-Vent. rate has decreased BY 3 BPM- [facility] ED Preliminary Interpretation - Not an [id number] 19:01:43 Test Item Value Reference Range Interpretation Comments FLY (test code = FLY) Lisha Hills MD 12/17/2021 1:07 [facility] ED Preliminary Interpretation - Not an OrderPerformed by: Lisha Hills MDAuthorized by: Lisha Hills MD ECG reviewed by ED Physician in the absence of a industrial illuminating engineer: yes Interpretation: Interpretation: abnormal Rate: ECG rate: 69 ECG rate assessment: normal Rhythm: Rhythm: paced Pacing: Type of pacing: AtrialEctopy: Ectopy: none QRS: QRS axis: Normal QRS intervals: NormalConduction: Conduction: normal ST segments: ST segments: NormalT waves: T waves: normal Lab Interpretation Abnormal (test code = 96147-3) [facility] ED Preliminary Interpretation - Not an [id number] 19:01:43 Test Item Value Reference Range Interpretation Comments FLY (test code = FLY) Lisha Hills MD 12/17/2021 1:07 [facility] ED Preliminary Interpretation - Not an OrderPerformed by: Lisha Hills MDAuthorized by: Lisha Hills MD ECG reviewed by ED Physician in the absence of a industrial illuminating engineer: yes Interpretation: Interpretation: abnormal Rate: ECG rate: 69 ECG rate assessment: normal Rhythm: Rhythm: paced Pacing: Type of pacing: AtrialEctopy: Ectopy: none QRS: QRS axis: Normal QRS intervals: NormalConduction: Conduction: normal ST segments: ST segments: NormalT waves: T waves: normal Lab Interpretation Abnormal (test code = 03097-8) [facility]-CoV-2 (COVID-19) RNA [Presence] in Respiratory specimen by TALIA with probe [id number] 09:35:29 Test Item Value Reference Range Interpretation Comments SARS-CoV-2 (COVID-19) RNA Not detected Not-Detected [Presence] in Respiratory specimen by TALIA with probe detection (test code = 13640-9) [facility] (COVID-19) RNA [Presence] in Respiratory specimen by TALIA with probe [id number] 23:17:05 Test Item Value Reference Range Interpretation Comments SARS-CoV-2 (COVID-19) RNA Not detected Not-Detected [Presence] in Respiratory specimen by TALIA with probe detection (test code = 44404-6) [facility]
[2022-10-22] MEDS ORDERED: DIPHENHYDRAMINE 25 MG TAB/CAP ONE (03:02)
[2022-10-22] MEDS ORDERED: ASPIRIN 81 MG CHEWABLE TABLET ONE ×2 (03:02→05:35)
[2022-10-22] MEDS ORDERED: LORAZEPAM 1 MG TABLET ONE (03:02)
[2022-10-22 04:13] LABS: Absolute Lymphocytes (CBC) 0.5 K/uL (0.7-4.9); Hematocrit 38.4 % (36.0-45.0); Lymphocytes % 10.2 % (15.3-44.8); MPV 9.2 fL (7.6-11.3); RBC Red Blood Cell Count 4.57 M/uL (3.86-4.86)
[2022-10-22 04:18] LABS: Protime INR 1.69
[2022-10-22 04:34] LABS: Bilirubin Direct 0.8 mg/dL (0-0.2); Bilirubin Total 1.6 mg/dL (0.2-1.0); Magnesium 2.9 mg/dL (1.6-2.4); Potassium 3.1 mmol/L (3.5-5.1); Protein, Total 8.3 g/dL (6.4-8.2); Troponin High Sensitivity 26.6 pg/mL (<58.9)
[2022-10-22] MEDS ORDERED: hydrOXYzine HCL 25 MG TAB ONE (05:35)
[2022-10-22] MEDS ORDERED: AMIODARONE HCL 200 MG TAB ONE (05:35)
[2022-10-22] MEDS ORDERED: FUROSEMIDE 20 MG TABLET ONE (05:35)
[2022-10-22] MEDS ORDERED: PROMETHAZINE 25 MG TABLET ONE (05:36)
--- NOTE | 2022-10-22 06:20 | EDPHYS ---
Physician Documentation [facility] Name: Lise Loera Age: 62 yrs Sex: Female : 1960 Arrival Date: 10/22/2022 Time: 02:31 Bed 19 Private MD: ED Physician Mickey Naranjo HPI: 10/22 02:36 This 62 yrs old Female presents to ER via EMS with complaints of dyspnea . sp4 05:10 Onset: The symptoms/episode began/occurred gradually, Onset several weeks ago. sp4 62-year-old female with past medical history of systolic congestive heart failure, atrial fibrillation, coronary artery disease, liver cirrhosis, history of breast cancer, history of pacemaker presents with AMS for multiple complaints, patient complained of dyspnea, diffuse generalized rash, itching, for the several weeks duration, patient also states that she has difficulty at home secondary to her physical deconditioning. Patient seems extremely anxious on presentation and reports worsening anxiety over the past few days.. Historical: - Allergies: 02:37 Codeine; ke1 02:37 Eliquis; ke1 02:37 PENICILLINS; ke1 02:37 Sulfa (Sulfonamide Antibiotics); ke1 02:37 Tylenol; ke1 - PMHx: 02:37 ADD/ADHD; Anxiety; Atrial Fib; CAD; cancer - skin; Cancer, Breast; CHF; Hypertension; ke1 Myocardial infarction; Pacemaker; - PSHx: 02:37 Pacemaker/Defib; ke1 - Social history:: Smoking status: Patient denies any tobacco usage or history of. - Family history:: not pertinent. ROS: 05:10 Constitutional: Negative for fever, chills, and weight loss, positive generalized sp4 physical debility Eyes: Negative for injury, pain, redness, and discharge, ENT: Negative for injury, pain, and discharge, Neck: Negative for injury, pain, and swelling, Cardiovascular: Negative for chest pain, palpitations, and edema, positive for dyspnea Respiratory: Negative for cough, wheezing, and pleuritic chest pain, positive for shortness of breath onset several weeks ago Abdomen/GI: Negative for abdominal pain, nausea, vomiting, diarrhea, and constipation, Back: Negative for injury and pain, : Negative for injury, bleeding, discharge, and swelling, MS/Extremity: Negative for injury and deformity, Skin: Negative for injury, nd discoloration, positive for diffuse rash with redness and pruritus Neuro: Negative for headache, weakness, numbness, tingling, and seizure, Psych: Negative for depression, suicide ideation, homicidal ideation, and hallucinations, positive for moderate to severe anxiety associated with chronic use of Xanax Allergy/Immunology: Negative for hives, rash, and allergies, Endocrine: Negative for neck swelling, polydipsia, polyuria, polyphagia, and marked weight changes, Hematologic/Lymphatic: Negative for swollen nodes, abnormal bleeding, and unusual bruising. Exam: 05:10 Constitutional: This is a well developed, well nourished patient who is awake, alert, sp4 patient appears to be chronically ill-appearing female with moderate generalized physical deconditioning, very anxious appearing with rambling speech and tearful on exam. Head/Face: Normocephalic, atraumatic. There is bilateral mild facial plethora Eyes: Pupils equal round and reactive to light, extra-ocular motions intact. Lids and lashes normal. Conjunctiva and sclera are non-icteric and not injected. Cornea within normal limits. Periorbital areas with no swelling, redness, or edema. ENT: Nares patent. No nasal discharge, no septal abnormalities noted. Tympanic membranes are normal and external auditory canals are clear. Oropharynx with no redness, swelling, or masses, exudates, or evidence of obstruction, uvula midline. Mucous membranes moist. Neck: Trachea midline, no thyromegaly or masses palpated, and no cervical lymphadenopathy. Supple, full range of motion without nuchal rigidity, or vertebral point tenderness. No Meningismus. Chest/axilla: Normal chest wall appearance and motion. Nontender with no deformity. No lesions are appreciated. Left chest wall pacemaker device subcutaneous Cardiovascular: Regular rate and rhythm with a normal S1 and S2. No gallops, murmurs, or rubs. Normal PMI, no JVD. No pulse deficits. Respiratory: Lungs have equal breath sounds bilaterally, clear to auscultation and percussion. No rales, rhonchi or wheezes noted. No increased work of breathing, no retractions or nasal flaring. Abdomen/GI: Soft, non-tender, with normal bowel sounds. No distension or tympany. No guarding or rebound. No evidence of tenderness throughout. Back: No spinal tenderness. No costovertebral tenderness. Full range of motion. Female : Normal external genitalia. Skin: Warm, dry with normal turgor. Normal color with no lesions, and no evidence of cellulitis. There are areas of redness to bilateral hands face lower extremities consistent with macular rash of unknown etiology, no ulcers no bullae no petechial rash and no herpetic type rash MS/ Extremity: Pulses equal, no cyanosis. Neurovascular intact. Full, normal range of motion. Neuro: Awake and alert, GCS 15, oriented to person, place, time, and situation. Cranial nerves II-XII grossly intact. Motor strength 5/5 in all extremities. Sensory grossly intact. Cerebellar exam normal. Normal gait. Psych: Awake, alert, with orientation to person, place and time. Moderate to severe anxiety on presentation, emotional upset, tearful, tremulous, affect is mood congruent 05:10 ECG was reviewed by the Attending Physician. Electronic ventricular pacemaker with a rate of 62, otherwise no further conclusion, EKG was done at 4:43 in the morning 06:11 Repeat EKG at 060 5 in the morning, electronic ventricular pacemaker at a rate of 65 no sp4 changes from prior EKG Vital Signs: 02:32 BP 103 / 67; Pulse 61; Resp 17; Temp 98(A); Pulse Ox 99% on R/A; Weight 56.7 kg; Height ke1 5 ft. 2 in. (157.48 cm); Pain 0/10; 06:50 BP 107 / 89; Pulse 66; Resp 17; Temp 98.2; Pulse Ox 97% on R/A; ke1 02:32 Body Mass Index 22.86 (56.70 kg, 157.48 cm) ke1 MDM: 02:41 Patient medically screened. sp4 05:10 Differential Diagnosis altered mental status, flu, Acute anxiety attack, acute panic sp4 attack, benzodiazepine withdrawal. Data reviewed: vital signs, nurses notes, EMS record, old medical records, lab test result(s), cardiac enzymes, CBC, electrolytes, hepatic panel, EKG, radiologic studies, plain films. ED course: Chest x-ray revealed massive cardiomegaly but no definite pneumonia, left biventricular AICD is present, surgical clips in the right axilla, lungs without consolidation atelectasis or edema. ED course: On evaluation patient has stable creatinine, and less than baseline BNP, patient is asymptomatic with respect to her history of heart failure with no signs of volume overload. patient does have multiple other complaints such as anxiety, rash, diffuse itching, and difficult time at home secondary to physical deconditioning, patient appears to have signs of withdrawal from benzodiazepine medication. Based on patient's record from 12/10/2021 she takes alprazolam 1 tablet p.o. 3 times a day, amiodarone once a day furosemide 20 mg daily potassium chloride daily and Entresto 24-26 mg twice a day aspirin once a day. Patient will stay in the ER and will have a repeat EKG at 6 in the morning also repeat troponin at 6 in the morning.. 06:11 ED course: Patient remains medically stable at 6 12 in the morning and at this time is sp4 stable for discharge home patient will be allowed to stay in and out until 7 AM. We advised close follow-up with primary MD and gutter hanger for patient's multiple non emergent medical complaints and also her a rash. 10/22 02:35 Order name: Basic Metabolic Panel [facility] 10/22 02:35 Order name: CBC with Diff 10/22 02:35 Order name: LFT's 10/22 02:35 Order name: Magnesium 10/22 02:35 Order name: NT PRO-BNP 10/22 02:35 Order name: PT-INR 10/22 02:35 Order name: Troponin HS 10/22 02:35 Order name: XRAY Chest (1 view) 10/22 02:35 Order name: EKG; Complete Time: 02:37 10/22 02:35 Order name: Cardiac monitoring; Complete Time: 04:48 10/22 02:35 Order name: EKG - Nurse/Tech; Complete Time: 04:48 10/22 02:35 Order name: IV Saline Lock; Complete Time: 04:15 sp4 10/22 02:35 Order name: Labs collected and sent; Complete Time: 04:16 10/22 02:35 Order name: O2 Per Protocol; Complete Time: 04:16 sp10/22 02:35 Order name: O2 Sat Monitoring; Complete Time: 04:16 sp4 10/22 04:15 Order name: CBC with Automated Diff; Complete Time: 04:46 EDMS 10/22 04:18 Order name: Protime (+INR); Complete Time: 04:46 EDMS 10/22 04:34 Order name: Basic Metabolic Panel; Complete Time: 04:46 EDMS 10/22 04:34 Order name: Liver (Hepatic) Function; Complete Time: 04:46 EDMS 10/22 04:34 Order name: Troponin High Sensitivity; Complete Time: 04:46 EDMS 10/22 04:34 Order name: NT PRO-BNP; Complete Time: 04:46 EDMS 10/22 04:34 Order name: Magnesium; Complete Time: 04:46 EDMS 10/22 04:58 Order name: EKG - Nurse/Tech: repeat at 06:00 AM; Complete Time: 06:14 sp4 10/22 04:58 Order name: Troponin High Sensitivity: Repeat at 06:00 AM sp4 10/22 06:34 Order name: Troponin High Sensitivity EDMS EC:10 Rate is 62 beats/min. Clinical impression: No change from prior ECG. sp4 Administered Medications: 03:10 Drug: Ativan (LORazepam) 2 mg Route: PO; ke1 03:10 Drug: Benadryl (diphenhydrAMINE) 25 mg Route: PO; ke1 03:11 Drug: Aspirin Chewable Tablet 324 mg Route: PO; ke1 05:39 Drug: Atarax (hydrOXYzine) 25 mg Route: PO; ke1 06:14 Follow up: Response: No adverse reaction ke1 05:39 Drug: Phenergan (promethazine) 25 mg Route: PO; ke1 06:14 Follow up: Response: No adverse reaction ke1 05:39 Not Given (Duplicate Order): Aspirin Chewable Tablet 324 mg PO once; 81 mg tablets x 4 ke1 05:39 Drug: amiodarone 200 mg Route: PO; ke1 06:14 Follow up: Response: No adverse reaction ke1 05:39 Drug: LaSIX (furosemide) 20 mg Route: PO; ke1 06:13 Follow up: Response: No adverse reaction ke1 Disposition Summary: 10/22/22 06:19 Discharge Ordered Location: Home sp4 Problem: chronic sp4 Symptoms: are unchanged sp4 Condition: Stable sp4 Diagnosis - Dermatitis, unspecified sp4 - Rash and other nonspecific skin eruption sp4 - Underdosing of benzodiazepines sp4 - Benzodiazepine withdrawal, acute anxiety, emotional upset, physical deconditioning sp4 Followup: sp4 - With: Private Physician - When: 7 - 10 days - Reason: Re-evaluation by your physician Discharge Instructions: - Discharge Summary Sheet sp4 - Benzodiazepine Withdrawal sp4 - Managing Anxiety, Adult sp4 Forms: - Thank You Letter sp4 Prescriptions: - Xanax 1 mg Oral Tablet - take 2 tablet by ORAL route every 12 hours As needed; 28 tablet; Refills: 0, sp4 Product Selection Permitted Signatures: Dispatcher [employer] Keyon Morales RN RN ke1 Mickey Naranjo MD MD sp4
--- NOTE | 2022-10-22 06:20 | ER ---
Nurse's Notes [facility] Name: Lise Loera Age: 62 yrs Sex: Female : 1960 Arrival Date: 10/22/2022 Time: 02:31 Bed 19 Private MD: Diagnosis: Dermatitis, unspecified;Rash and other nonspecific skin eruption;Underdosing of benzodiazepines;Benzodiazepine withdrawal, acute anxiety, emotional upset, physical deconditioning Presentation: 10/22 02:32 Chief complaint: Patient states: Toned out for SOB and c/o lips turning blue, oxygen ke1 99% on RA on EMS arrival. Coronavirus screen: Vaccine status: Patient reports being unvaccinated. Ebola Screen: No symptoms or risks identified at this time. Initial Sepsis Screen: Does the patient meet any 2 criteria? No. Patient's initial sepsis screen is negative. Does the patient have a suspected source of infection? No. Patient's initial sepsis screen is negative. Risk Assessment: Do you want to hurt yourself or someone else? Patient reports no desire to harm self or others. Onset of symptoms was October 22, 2022 at 02:00. 02:32 Method Of Arrival: EMS ke1 02:32 Acuity: ESTRELLITA 3 ke1 Triage Assessment: 02:38 General: Appears in no apparent distress. Behavior is anxious, inappropriate for age. ke1 06:24 Pain: Denies pain. ke1 Historical: - Allergies: 02:37 Codeine; ke1 02:37 Eliquis; ke1 02:37 PENICILLINS; ke1 02:37 Sulfa (Sulfonamide Antibiotics); ke1 02:37 Tylenol; ke1 - PMHx: 02:37 ADD/ADHD; Anxiety; Atrial Fib; CAD; cancer - skin; Cancer, Breast; CHF; Hypertension; ke1 Myocardial infarction; Pacemaker; - PSHx: 02:37 Pacemaker/Defib; ke1 - Social history:: Smoking status: Patient denies any tobacco usage or history of. - Family history:: not pertinent. Screenin:37 [facility] ED Fall Risk Assessment (Adult) History of falling in the last 3 months, ke1 including since admission No falls in past 3 months (0 pts) Confusion or Disorientation No (0 pts) Intoxicated or Sedated No (0 pts) Impaired Gait No (0 pts) Mobility Assist Device Used No (0 pt) Altered Elimination No (0 pt) Score/Fall Risk Level 0 - 2 = Low Risk. Abuse screen: Denies threats or abuse. Nutritional screening: No deficits noted. Tuberculosis screening: No symptoms or risk factors identified. Assessment: 03:11 Reassessment: see triage. ke1 05:31 Reassessment: Patient appears in no apparent distress at this time. Patient and/or ke1 family updated on plan of care and expected duration. Pain level reassessed. Patient is alert, oriented x 3, equal unlabored respirations, skin warm/dry/pink. 06:23 Reassessment: Per MD bone on 2nd troponin result before d/c. ke1 Vital Signs: 02:32 BP 103 / 67; Pulse 61; Resp 17; Temp 98(A); Pulse Ox 99% on R/A; Weight 56.7 kg; Height ke1 5 ft. 2 in. (157.48 cm); Pain 0/10; 06:50 BP 107 / 89; Pulse 66; Resp 17; Temp 98.2; Pulse Ox 97% on R/A; ke1 02:32 Body Mass Index 22.86 (56.70 kg, 157.48 cm) ke1 ED Course: 02:31 Patient arrived in ED. ke1 02:32 Keyon Dasilva, DAMASO is Primary Nurse. ke1 02:34 Triage completed. ke1 02:35 Mickey Naranjo MD is Attending Physician. sp4 02:39 Arm band placed on right wrist. ke1 03:00 Missed attempt(s): 22 gauge in right forearm. ke1 04:15 Inserted saline lock: 20 gauge antecubital area, using aseptic technique. By Ryland ke1 RN. 05:32 Bed in low position. Call light in reach. ke1 06:15 Troponin High Sensitivity: Repeat at 06:00 AM Sent. ke1 06:21 No provider procedures requiring assistance completed. ke1 06:51 IV discontinued. ke1 Administered Medications: 03:10 Drug: Ativan (LORazepam) 2 mg Route: PO; ke1 03:10 Drug: Benadryl (diphenhydrAMINE) 25 mg Route: PO; ke1 03:11 Drug: Aspirin Chewable Tablet 324 mg Route: PO; ke1 05:39 Drug: Atarax (hydrOXYzine) 25 mg Route: PO; ke1 06:14 Follow up: Response: No adverse reaction ke1 05:39 Drug: Phenergan (promethazine) 25 mg Route: PO; ke1 06:14 Follow up: Response: No adverse reaction ke1 05:39 Not Given (Duplicate Order): Aspirin Chewable Tablet 324 mg PO once; 81 mg tablets x 4 ke1 05:39 Drug: amiodarone 200 mg Route: PO; ke1 06:14 Follow up: Response: No adverse reaction ke1 05:39 Drug: LaSIX (furosemide) 20 mg Route: PO; ke1 06:13 Follow up: Response: No adverse reaction ke1 Medication: 06:24 VIS not applicable for this client. ke1 Outcome: 06:19 Discharge ordered by . sp4 06:51 Discharged to home via wheelchair. ke1 06:51 Condition: good 06:51 Discharge instructions given to patient. 06:51 Patient left the ED. ke1 Signatures: Keyon Dasilva RN RN ke1 Mickey Naranjo MD MD sp4
[2022-10-22 07:43] VITALS: BP 107/89; TEMP 98.2; O2SAT 97
--- NOTE | 2022-10-23 11:22 | RAD REPORT ---
EXAM DESCRIPTION: RAD - Chest Single View - 10/22/2022 3:42 am CLINICAL HISTORY: DYSPNEA COMPARISON: None. TECHNIQUE: XR CHEST 1 VIEW 10/22/2022 2:35 AM TRUCKER FINDINGS: The heart is enlarged. Left biventricular AICD is present. There are surgical clips in the right axilla. Lungs are clear without consolidation, atelectasis, mass or edema. There is no pleural effusion. There is no pneumothorax. There are no acute osseous findings. IMPRESSION: Massive cardiomegaly. No definite pneumonia. Electronically signed by: Miguel Gamez MD 10/22/2022 3:57 AM TRUCKER Due to temporary technical issues with the PACS/Fluency reporting system, reports are being signed by the in house radiologists without review as a courtesy to insure prompt reporting. The interpreting radiologist is fully responsible for the content of the report.
--- NOTE | 2022-10-23 16:41 | EKG ---
Test Date: 2022-10-22 Test Time: 06:05:43 Slitting Machine Operator Helper: LUISA MEASUREMENT RESULTS: Intervals: Rate: 65 IL: 152 QRSD: 200 QT: 480 QTc: 499 [place]: P: 77 IL: 152 QRS: -58 T: -25 INTERPRETIVE STATEMENTS: Electronic ventricular pacemaker Compared to ECG 10/22/2022 04:43:31 No significant changes Electronically Signed On 10-23-22 16:37:32 WIRE BASKET MAKER by Adam Bernard
--- NOTE | 2022-10-23 16:42 | EKG ---
Test Date: 2022-10-22 Test Time: 04:43:31 Pipeline Controller: LUISA MEASUREMENT RESULTS: Intervals: Rate: 62 IL: 152 QRSD: 196 QT: 724 QTc: 734 [place]: P: 110 IL: 152 QRS: -70 T: 106 INTERPRETIVE STATEMENTS: Electronic ventricular pacemaker Compared to ECG 05/31/2022 20:25:52 No significant changes Electronically Signed On 10-23-22 16:37:36 CLIENT REPRESENTATIVE by Adam Bernard
== END 2022-10-22 06:51 | disposition home or self-care (01) ==
LOC: ER 02:23
DX: F19.230 Other psychoactive substance dependence with withdrawal, uncomplicated (principal); T42.4X6A Underdosing of benzodiazepines, initial encounter; Z91.138 Patient's unintentional underdosing of medication regimen for other reason; L30.9 Dermatitis, unspecified; R21 Rash and other nonspecific skin eruption
CPT/HCPCS: 93005 ×2; 85025; 80048; 36415; 83735; 85610; 80076; 84484 ×2; 83880; 71045; 99284; Q0169

== ENCOUNTER 2022-10-28 15:26 | Emergency (ER) | payer OTHER ==
--- OUTSIDE RECORDS SUMMARY | 2022-10-28 15:34 | XMS REPORT | Continuity of Care Document ---
:[address] [facility] t Address [address] [place] [address] [address] [place] [address] Care Team Providers Name Role Phone Andrzej Blue MD Primary Care Physician ANDRZEJ BLUE Attending Clinician Unavailable AJ ROSEN Attending Clinician Unavailable Silas NAVARRO, Aj Davis Attending Clinician Andrzej Blue MD Attending Clinician ROSA MARIA MONTERO Attending Clinician Unavailable Winston NAVARRO, Rosa Maria Attending Clinician Unknown, Attending Attending Clinician Unavailable Doctor Unassigned, [place] Attending Clinician Unavailable Loyda Dhillon RN Attending Clinician Unavailable Reinier NAVARRO, Lisha Sanders Attending Clinician Jaguar Mendiola MD Attending Clinician Tin NAVARRO, Aaron Spencer Attending Clinician [phone] Benjamin Wilson MD Attending Clinician Shamar Charles RN Attending Clinician Unavailable Varghese Bateman Attending Clinician Unavailable MONTSERRAT MURRELL Attending Clinician Unavailable NIKOS FERREIRA Attending Clinician Unavailable Nikos Ferreira MD Attending Clinician YULI PYLE Attending Clinician Unavailable Yuli Pyle DO Attending Clinician LAYO KESSLER Attending Clinician Unavailable JENNIFER COOLEY Attending Clinician Unavailable MD JENNIFER COOLEY Attending Clinician Unavailable French MANUEL Lori R Attending Clinician Provider, [facility] Attending Clinician Unavailable Silvano Young Attending Clinician SILVANO STEINBERG Attending Clinician Unavailable Lore WARPER TENDER, Ernestina F Attending Clinician Hemalatha Ring RN, Mandy Attending Clinician Unavailable Consuelo Gee MD Attending Clinician CONSUELO GEE Attending Clinician Unavailable LILLIAN AKINS Attending Clinician Unavailable MD LILLIAN AKINS Attending Clinician Unavailable LINA VÁZQUEZ Attending Clinician Unavailable AARON CASTLE Admitting Clinician Unavailable MD JAGUAR MENDIOLA Admitting Clinician Unavailable NIKOS FERREIRA Admitting Clinician Unavailable YULI PYLE Admitting Clinician Unavailable LAYO KESSLER Admitting Clinician Unavailable JENNIFER COOLEY Admitting Clinician Unavailable MD JENNIFER COOLEY Admitting Clinician Unavailable LILLIAN AKINS Admitting Clinician Unavailable MD LILLIAN AKINS Admitting Clinician Unavailable Payers Payer Name Policy Type Policy Number Effective Date Expiration Date mikki MEDICARE PART A [id number] 2010 \T\ B 00:00:00 Problems Condition Condition [...] 00 l Anxiety Anxiety Disease Active [facility] 00 l Acute Acute Disease Active [facility] right right 04-07 st otitis otitis 00:00: Hospita media media 00 l Shortness Shortness Disease Active Met hodi of breath of breath [facility] [facility] 00:00: Hospita 00 l 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 [address] and and 00:00: Hospita diastolic diastolic 00 l congestive congestive heart heart failure failure Malignant Malignant Disease Active 2006-08 Uni vers neoplasm neoplasm 1-15 ity of of of 00:00: [place] lower-inne lower-inne 00 Me dical r quadrant [...] s XACIN INGREDI 2-22 ity of 00:00: [place] 00 Medical Branch Ciproflo Propensi Active Swelling 2021-08 Difficult U nivers xacin ty to 2-22 y ity of adverse 00:00: breathing [place] reaction 00 Medical s Branch APIXABAN DRUG Active High Anaphylaxis Uni vers INGREDI 4-28 ity of 00:00: [place] 00 Medical Branch Apixaban Propensi Active Shortness of Univers ty to Breath 428 ity of adverse 00:00: [place] reaction 00 Medical s Branch Apixaban Propensi Active Shortness Of Methodi ty to Breath 12-15 st adverse 00:00: Hospita reaction 00 l s to drug SULFUR DRUG Active Low Rash Univers INGREDI 12-14 ity of 00:00: [place] 00 Medical Branch Sulfur Propensi Active Rash Univers ty to 12-14 ity of adverse 00:00: [place] reaction 00 Medical s Branch Sulfur Propensi Active Rash Methodi (Do Not ty to 12-14 st Use For adverse 00:00: Hospita Sulfa reaction 00 l Drugs) s to drug Other Propensi Active Rash [...] Branch g Penicill Propensi Active Rash 2006-08 Method i ins ty to 0-08 st adverse 00:00: Hospita reaction 00 l s to drug Family History Family Member Diagnosis Comments Start Date Stop Date Source Natural father Heart disease [facility] Natural mother Liver disease [facility] Social History Social Habit Start Date Stop Date Quantity Comments Source History of tobacco Current smoker Un iversity of use [facility] Exposure to 2022-10-14 2022-10-24 Not sure University SARS-CoV-2 (event) 00:00:00 20:18:00 [facility] Tobacco use and 2022-08-09 2022-08-09 Smokeless Universit y of exposure 00:00:00 00:00:[address] tobacco non-[address] [facility] Alcohol intake 2021-02-11 2021-02-11 Current [employer] 00:00:00 00:00:00 non-drinker of Hospital alcohol (finding) Cigarettes smoked 2020-07-13 2020-07-13 [facility] current (pack per 00:00:00 00:00:00 Hospita l day) - Reported Sex [birth year] At [birth year] [employer] 00:00:00 00:00:00 [facility] Smoking Status Start Date Stop Date Source Ex-smoker 2022-08-09 00:00:00 2022-08-09 00:00:00 [facility] Medications Ordered Filled Start Stop Current Ordering Indication Dosage Frequency Signature Comments Components Source Medication Medication Date Date Medication? Clinician (SIG) Name Name permethrin 2022- Yes [id number] Apply to Univers 5 % cream 227 -28 area(s) ity of 00:00: 05:59 once now [place] 00 :00 for 1 Medical dose. Branch hydrocortis Yes Apply to Un jennifer one 2.5 % 1-23 area(s) 2 ity o f cream 00:00: (two) [place] 00 times Medical daily. Branch hydrocortis 2022- Yes Apply to Un jennifer one 2.5 % 1-23 area(s) 2 ity o f cream 00:00: (two) [place] 00 times Medical daily. Branch hydrocortis 2022- Yes Apply to Un jennifer one 2.5 % 1-23 area(s) 2 ity o f cream 00:00: (two) [place] 00 times Medical daily. Branch hydrocortis 2022-0 Yes Apply to Un jennifer one 2.5 % 1-23 area(s) 2 ity o f cream 00:00: (two) [place] 00 times Medical daily. Branch permethrin 2022- Yes [id number] Apply to Univers 5 % cream 09-11 area(s) ity of 00:00: 05:59 once now [place] 00 :00 for 1 Medical dose. Branch permethrin 2022- Yes [id number] Apply to Univers 5 % cream 09-11 area(s) ity of 00:00: 05:59 once now [place] 00 :00 for 1 Medical dose. Branch sulfamethox 2021-08 Yes [id number] 1{tbl} Take 1 Univers azole-trime 2-22 tablet by ity of thoprim 00:00: mouth in [place] (BACTRIM 00 the Medical DS) 800-160 morning Branc h mg per and 1 tablet tablet in the evening. sulfamethox 2021-08 Yes [id number] 1{tbl} Take 1 Univers azole-trime 2-22 tablet by ity of thoprim 00:00: mouth in [place] (BACTRI 00 the Medical DS) 800-160 morning Branc h mg per and 1 tablet tablet in the evening. sulfamethox 2021-08 Yes [id number] 1{tbl} Take 1 Univers azole-trime 2-22 tablet by ity of thoprim 00:00: mouth in [place] (BACTRIM 00 the Medical DS) 800-160 morning Branc h mg per and 1 tablet tablet in the evening. sulfamethox 2021-08 Yes [id number] 1{tbl} Take 1 Univers azole-trime 2-22 tablet by ity of thoprim 00:00: mouth in [place] (BACTRIM 00 the Medical DS) 800-160 morning Branc h mg per and 1 tablet tablet in the evening. sulfamethox 2021- Yes [id number] 1{tbl} Take 1 Univers azole-trime 2-22 tablet by ity of thoprim 00:00: mouth in [place] (BACTRIM 00 the Medical DS) 800-160 morning Branc h mg per and 1 tablet tablet in the evening. sulfamethox 2021- Yes [id number] 1{tbl} Take 1 Univers azole-trime 2-22 tablet by ity of thoprim 00:00: mouth in [place] (BACTRIM 00 the Medical DS) 800-160 morning Branc h mg per and 1 tablet tablet in the evening. sulfamethox 2021-08 Yes [id number] 1{tbl} Take 1 Univers azole-trime 2-22 tablet by ity of thoprim 00:00: mouth in [place] (BACTRIM 00 the Medical DS) 800-160 morning Branc h mg per and 1 tablet tablet in the evening. sulfamethox 2021-08 Yes [id number] 1{tbl} Take 1 Univers azole-trime 2-22 tablet by ity of thoprim 00:00: mouth in [place] (BACTRIM 00 the Medical DS) 800-160 morning Branc h mg per and 1 tablet tablet in the evening. ciprofloxac 2021-08 Yes [id number] 250mg Take 1 Univers in HCl 2-21 tablet by ity of (CIPRO) 250 00:00: mouth [place] mg tablet 00 every 12 Medica l (twelve) Branch hours. ciprofloxac 2021-08 Yes [id number] 250mg Take 1 Univers in HCl 2-21 tablet by ity of (CIPRO) 250 00:00: mouth [place] mg tablet 00 every 12 Medica l (twelve) Branch hours. ciprofloxac 2021-08 Yes [id number] 250mg Take 1 Univers in HCl 2-21 tablet by ity of (CIPRO) 250 00:00: mouth [place] mg tablet 00 every 12 Medica l (twelve) Branch hours. ciprofloxac 2021-08 Yes [id number] 250mg Take 1 Univers in HCl 2-21 tablet by ity of (CIPRO) 250 00:00: mouth [place] mg tablet 00 every 12 Medica l (twelve) Branch hours. ciprofloxac 2021-08 Yes [id number] 250mg Take 1 Univers in HCl 2-21 tablet by ity of (CIPRO) 250 00:00: mouth [place] mg tablet 00 every 12 Medica l (twelve) Branch hours. ciprofloxac 2021-08 Yes [id number] 250mg Take 1 Univers in HCl 2-21 tablet by ity of (CIPRO) 250 00:00: mouth [place] mg tablet 00 every 12 Medica l (twelve) Branch hours. ciprofloxac 2021-08 Yes [id number] 250mg Take 1 Univers in HCl 2-21 tablet by ity of (CIPRO) 250 00:00: mouth [place] mg tablet 00 every 12 Medica l (twelve) Branch hours. ciprofloxac 2021-08 Yes [id number] 250mg Take 1 Univers in HCl 2-21 tablet by ity of (CIPRO) 250 00:00: mouth [place] mg tablet 00 every 12 Medica l (twelve) Branch hours. ciprofloxac 2021-08 Yes [id number] 250mg Take 1 Univers in HCl 2-21 tablet by ity of (CIPRO) 250 00:00: mouth [place] mg tablet 00 every 12 Medica l (twelve) Branch hours. ciprofloxac 2021-08 Yes [id number] 250mg Take 1 Univers in HCl 2-21 tablet by ity of (CIPRO) 250 00:00: mouth [place] mg tablet 00 every 12 Medica l (twelve) Branch hours. ALPRAZolam 2021-08 Yes [id number] 2mg Take 1 U nivers 2 mg tablet 0-24 tablet by ity of 00:00: mouth 2 (two) Medical times Branch daily as needed for Sleep or Anxiety. ALPRAZolam 2021-08 Yes [id number] 2mg Take 1 U nivers 2 mg tablet 0-24 tablet by ity of 00:00: mouth (two) Medical times Branch daily as needed for Sleep or Anxiety. ALPRAZolam 2021-08 Yes [id number] 2mg Take 1 U nivers 2 mg tablet 0-24 tablet by ity of 00:00: mouth 2 (two) Medical times Branch daily as needed for Sleep or Anxiety. ALPRAZolam 2021-08 Yes [id number] 2mg Take 1 U nivers 2 mg tablet 0-24 tablet by ity of 00:00: mouth 2 (two) Medical times Branch daily as needed for Sleep or Anxiety. ALPRAZolam 2021-08 Yes [id number] 2mg Take 1 U nivers 2 mg tablet 0-24 tablet by ity of 00:00: mouth 2 (two) Medical times Branch daily as needed for Sleep or Anxiety. ALPRAZolam 2021-08 Yes [id number] 2mg Take 1 U nivers 2 mg tablet 0-24 tablet by ity of 00:00: mouth 2 (two) Medical times Branch daily as needed for Sleep or Anxiety. ALPRAZolam 2021-08 Yes [id number] 2mg Take 1 U nivers 2 mg tablet 0-24 tablet by ity of 00:00: mouth (two) Medical times Branch daily as needed for Sleep or Anxiety. ALPRAZolam 2021-08 Yes [id number] 2mg Take 1 U nivers 2 mg tablet 0-24 tablet by ity of 00:00: mouth 2 (two) Medical times Branch daily as needed for Sleep or Anxiety. ALPRAZolam 2021-08 Yes [id number] 2mg Take 1 U nivers 2 mg tablet 0-24 tablet by ity of 00:00: mouth (two) Medical times Branch daily as needed for Sleep or Anxiety. ALPRAZolam 2021-08 Yes [id number] 2mg Take 1 U nivers 2 mg tablet 0-24 tablet by ity of 00:00: mouth (two) Medical times Branch daily as needed for Sleep or Anxiety. ALPRAZolam 2021-08 Yes [id number] 2mg Take 1 U nivers 2 mg tablet 0-24 tablet by ity of 00:00: mouth (two) Medical times Branch daily as needed for Sleep or Anxiety. ALPRAZolam 2021-08 Yes [id number] 2mg Take 1 U nivers 2 mg tablet 0-24 tablet by ity of 00:00: mouth (two) Medical times Branch daily as needed for Sleep or Anxiety. ALPRAZolam 2021-08 Yes [id number] 2mg Take 1 U nivers 2 mg tablet 0-24 tablet by ity of 00:00: mouth (two) Medical times Branch daily as needed for Sleep or Anxiety. ALPRAZolam 2021-08 Yes [id number] 2mg Take 1 U nivers 2 mg tablet 0-24 tablet by ity of 00:00: mouth (two) Medical times Branch daily as needed for Sleep or Anxiety. ALPRAZolam 2021-08 Yes [id number] 2mg Take 1 U nivers 2 mg tablet 0-17 tablet by ity of 00:00: mouth 2 (two) Medical times Branch daily as needed for Anxiety. TAKE 1 TABLET BY MOUTH THREE TIMES DAILY NEEDED ALPRAZolam 2021-08 Yes [id number] 2mg Take 1 U nivers 2 mg tablet 0-17 tablet by ity of 00:00: mouth 2 (two) Medical times Branch daily as needed for Anxiety. TAKE 1 TABLET BY MOUTH THREE TIMES DAILY NEEDED ALPRAZolam 2021-08 Yes [id number] 2mg Take 1 U nivers 2 mg tablet 0-17 tablet by ity of 00:00: mouth 2 (two) Medical times Branch daily as needed for Anxiety. TAKE 1 TABLET BY MOUTH THREE TIMES DAILY NEEDED ALPRAZolam 2021-08 Yes [id number] 2mg Take 1 U nivers 2 mg tablet 0-17 tablet by ity of 00:00: mouth 2 (two) Medical times Branch daily as needed for Anxiety. TAKE 1 TABLET BY MOUTH THREE TIMES DAILY NEEDED ALPRAZolam 2021-08 Yes [id number] 2mg Take 1 U nivers 2 mg tablet 0-17 tablet by ity of 00:00: mouth 2 (two) Medical times Branch daily as needed for Anxiety. TAKE 1 TABLET BY MOUTH THREE TIMES DAILY NEEDED ALPRAZolam 2021-08- No [id number] 2mg Take 1 Univers 2 mg tablet 0-17 10-24 tablet by it y of 00:00: 00:00 mouth 2 [place] 00 : (two) Medical times Branch daily as needed for Anxiety. TAKE 1 TABLET BY MOUTH THREE TIMES DAILY NEEDED cyclobenzap 2021-08 Yes Univer s rine 5 mg 0-14 ity of tablet 00:00: [facility] Branch cyclobenzap 2021-08 Yes Univer s rine 5 mg 0-14 ity of tablet 00:00: Medical Branch cyclobenzap 2021-08 Yes Univer s rine 5 mg 0-14 ity of tablet 00:00: Medical Branch cyclobenzap 2021-08 Yes Univer s rine 5 mg 0-14 ity of tablet 00:00: Medical Branch cyclobenzap 2021-08 Yes Univer s rine 5 mg 0-14 ity of tablet 00:00: Medical Branch cyclobenzap 2021-08 Yes Univer s rine 5 mg 0-14 ity of tablet 00:00: Medical Branch cyclobenzap 2021-08 Yes Univer s rine 5 mg 0-14 ity of tablet 00:00: Medical Branch cyclobenzap 2021-08 Yes Univer s rine 5 mg 0-14 ity of tablet 00:00: [place] [facility] cyclobenzap 2021-08 Yes Univer s rine 5 mg 0-14 ity of tablet 00:00: [place] [facility] cyclobenzap 2021-08 Yes Univer s rine 5 mg 0-14 ity of tablet 00:00: [place] 00 Medical Branch sulfamethox 2021-0 2021- No 1{tbl} Take 1 U nivers azole-trime 6-20 - tablet by it y of 00:00: 04:59 mouth 2 [place] 800-160 mg 00 :00 (two) Medical per tablet times Branch daily for 10 days. traMADoL 50 Yes [id number] 50mg Take 1 Univ ers mg tablet 6-15 tablet by ity o f 00:00: mouth every 6 Medical (six) Branch hours as needed for Pain (scale 7-10). Indication s: chronic pain ALPRAZolam Yes [id number] 2mg Take 1 U nivers 2 mg tablet 6-15 tablet by ity of 00:00: mouth 2 (two) Medical times Branch daily as needed for Anxiety. TAKE 1 TABLET BY MOUTH THREE TIMES DAILY NEEDED traMADoL 50 Yes [id number] 50mg Take 1 Univ ers mg tablet 6-15 tablet by ity o f 00:00: mouth every 6 Medical (six) Branch hours as needed for Pain (scale 7-10). Indication s: chronic pain ALPRAZolam Yes [id number] 2mg Take 1 U nivers 2 mg tablet 6-15 tablet by ity of 00:00: mouth 2 [place] 00 (two) Medical times Branch daily as needed for Anxiety. TAKE 1 TABLET BY MOUTH THREE TIMES DAILY NEEDED traMADoL 50 Yes [id number] 50mg Take 1 Univ ers mg tablet 6-15 tablet by ity o f 00:00: mouth every 6 Medical (six) Branch hours as needed for Pain (scale 7-10). Indication s: chronic pain ALPRAZolam Yes [id number] 2mg Take 1 U nivers 2 mg tablet 6-15 tablet by ity of 00:00: mouth 2 (two) Medical times Branch daily as needed for Anxiety. TAKE 1 TABLET BY MOUTH THREE TIMES DAILY NEEDED traMADoL 50 0 Yes [id number] 50mg Take 1 Univ ers mg tablet 6-15 tablet by ity o f 00:00: mouth [place] 00 every 6 Medical (six) Branch hours as needed for Pain (scale 7-10). Indication s: chronic pain ALPRAZolam 0 Yes [id number] 2mg Take 1 U nivers 2 mg [...] 7-10). Indication s: chronic pain traMADoL 50 2022-0 Yes [id number] 50mg Take 1 Univ ers [...] (scale 7-10). Indication s: chronic pain ALPRAZolam 2021- No [id number] 2mg Take 1 Univers 2 mg tablet 6-15 10-17 tablet by it y of 00:00: 00:00 mouth 2 [place] 00 :00 (two) Medical times Branch daily as needed for Anxiety. TAKE 1 TABLET BY MOUTH THREE TIMES DAILY NEEDED metOLazone 0 Yes 5mg Take 5 mg Un jennifer 5 mg tablet 5-11 by mouth. ity of 13:10: [place] Medical Branch sacubitriL- 0 Yes Take by Uni vers valsartan 5-11 mouth. ity of (ENTRESTO) 13:10: [place] 49-51 mg 20 Medical tablet Branch metOLazone 0 Yes 5mg Take 5 mg Un jennifer 5 mg tablet 5-11 by mouth. ity of 13:10: [place] 20 Medical Branch sacubitriL- 0 Yes Take by Uni vers valsartan 5-11 mouth. ity of (ENTRESTO) 13:10: [place] 49-51 mg 20 Medical tablet Branch metOLazone 0 Yes 5mg Take 5 mg Un jennifer 5 mg tablet 5-11 by mouth. ity of 13:10: [place] 20 Medical Branch sacubitriL- 2021-0 Yes Take by Uni vers valsartan 5-11 mouth. ity of (ENTRESTO) 13:10: [place] 49-51 mg 20 Medical tablet Branch metOLazone 2021-0 Yes 5mg Take 5 mg Un jennifer 5 mg tablet 5-11 by mouth. ity of 13:10: [place] 20 Medical Branch sacubitriL- 2021-0 Yes Take by Uni vers valsartan 5-11 mouth. ity of (ENTRESTO) 13:10: [place] 49-51 mg 20 Medical tablet Branch metOLazone 2021-0 Yes 5mg Take 5 mg Un jennifer 5 mg tablet 5-11 by mouth. ity of 13:10: [place] 20 Medical Branch sacubitriL- 2021-0 Yes Take by Uni vers valsartan 5-11 mouth. ity of (ENTRESTO) 13:10: [place] 49-51 mg 20 Medical tablet Branch metOLazone 2021-0 Yes 5mg Take 5 mg Un jennifer 5 mg tablet 5-11 by mouth. ity of 13:10: [place] 20 Medical Branch sacubitriL- 2021-0 Yes Take by Uni vers valsartan 5-11 mouth. ity of (ENTRESTO) 13:10: [place] 49-51 mg 20 Medical tablet Branch metOLazone 2021-0 Yes 5mg Take 5 mg Un jennifer 5 mg tablet 5-11 by mouth. ity of 13:10: [place] 20 Medical Branch sacubitriL- 2021-0 Yes Take by Uni vers valsartan 5-11 mouth. ity of (ENTRESTO) 13:10: [place] 49-51 mg 20 Medical tablet Branch metOLazone 2021-0 Yes 5mg Take 5 mg Un jennifer 5 mg tablet 5-11 by mouth. ity of 13:10: [place] 20 Medical Branch sacubitriL- 2021-0 Yes Take by Uni vers valsartan 5-11 mouth. ity of (ENTRESTO) 13:10: [place] 49-51 mg 20 Medical tablet Branch metOLazone 2021-0 Yes 5mg Take 5 mg Un jennifer 5 mg tablet 5-11 by mouth. ity of 13:10: [place] 20 Medical Branch sacubitriL- 2021-0 Yes Take [...] tablet 5-11 by mouth. ity of 13:10: [place] 20 Medical Branch sacubitriL- 2021-0 Yes Take by Uni vers valsartan 5-11 mouth. ity of (ENTRESTO) 13:10: [place] 49-51 mg 20 Medical tablet Branch metOLazone 2021-0 Yes 5mg Take 5 mg Un jennifer 5 mg tablet 5-11 by mouth. ity of 13:10: [place] 20 Medical Branch sacubitriL- 2021-0 Yes Take by Uni vers valsartan 5-11 mouth. ity of (ENTRESTO) 13:10: [place] 49-51 mg 20 Medical tablet Branch metOLazone 2021-0 Yes 5mg Take 5 mg Un jennifer 5 mg tablet 5-11 by mouth. ity of 13:10: [place] 20 Medical Branch sacubitriL- 2021-0 Yes Take by Uni vers valsartan 5-11 mouth. ity of (ENTRESTO) 13:10: [place] 49-51 mg 20 Medical tablet Branch metOLazone 2021-0 Yes 5mg Take 5 mg Un jennifer 5 mg tablet 5-11 by mouth. ity of 13:10: [place] 20 Medical Branch sacubitriL- 2021-0 Yes Take by Uni vers valsartan 5-11 mouth. ity of (ENTRESTO) 13:10: [place] 49-51 mg 20 Medical tablet Branch metOLazone 2021-0 Yes 5mg Take 5 mg Un jennifer 5 mg tablet 5-11 by mouth. ity of 13:10: [place] 20 Medical Branch sacubitriL- 2021-0 Yes Take by Uni vers valsartan 5-11 mouth. ity of (ENTRESTO) 13:10: [place] 49-51 mg 20 Medical tablet Branch metOLazone 2021-0 Yes 5mg Take 5 mg Un jennifer 5 mg tablet 5-11 by mouth. ity of 13:10: [place] 20 Medical Branch sacubitriL- 2021-0 Yes Take by Uni vers valsartan 5-11 mouth. ity of (ENTRESTO) 13:10: [place] 49-51 mg 20 Medical tablet Branch metOLazone 2021-0 Yes 5mg Take 5 mg Un jennifer 5 mg tablet 5-11 by mouth. ity of 13:10: [place] 20 Medical Branch sacubitriL- 2021-0 Yes Take by Uni vers valsartan 5-11 mouth. ity of (ENTRESTO) 13:10: [place] 49-51 mg 20 Medical tablet Branch metOLazone 2021-0 Yes 5mg Take 5 mg Un jennifer 5 mg tablet 5-11 by mouth. ity of 13:10: [place] 20 Medical Branch sacubitriL- 2021-0 Yes Take by Uni vers valsartan 5-11 mouth. ity of (ENTRESTO) 13:10: [place] 49-51 mg 20 Medical tablet Branch metOLazone 2021-0 Yes 5mg Take 5 mg Un jennifer 5 mg tablet 5-11 by mouth. ity of 13:10: [place] 20 Medical Branch sacubitriL- 2021-0 Yes Take by Uni vers valsartan 5-11 mouth. ity of (ENTRESTO) 13:10: [place] 49-51 mg 20 Medical tablet Branch metOLazone 2021-0 Yes 5mg Take 5 mg Un jennifer 5 mg tablet 5-11 by mouth. ity of 13:10: [place] 20 Medical Branch sacubitriL- 2021-0 Yes Take by Uni vers valsartan 5-11 mouth. ity of (ENTRESTO) 13:10: [place] 49-51 mg 20 Medical tablet Branch metOLazone 2022-0 Yes 5mg Take 5 mg Un jennifer 5 mg tablet 5-11 by mouth. ity of 13:10: [place] 20 Medical Branch sacubitriL- 2021-0 Yes Take by Uni vers valsartan 5-11 mouth. ity of (ENTRESTO) 13:10: [place] 49-51 mg 20 Medical tablet Branch metOLazone 2021-0 Yes 5mg Take 5 mg Un jennifer 5 mg tablet 5-11 by mouth. ity of 13:10: [place] 20 Medical Branch sacubitriL- 2021-0 Yes Take by Uni vers valsartan 5-11 mouth. ity of (ENTRESTO) 13:10: [place] 49-51 mg 20 Medical tablet Branch KCL 10 mEq 2021-0 Yes 10meq Take 10 Uni vers tablet 5-11 mEq by ity of 13:08: mouth. [place] [address] Medical Branch KCL 10 mEq 2-0 Yes 10meq Take 10 Uni vers tablet 5-11 mEq by ity of 13:08: mouth. [place] [address] Medical Branch KCL 10 mEq 2-0 Yes 10meq Take 10 Uni vers tablet 5-11 mEq by ity of 13:08: mouth. [place] [address] Medical Branch KCL 10 mEq 2-0 Yes 10meq Take 10 Uni vers tablet 5-11 mEq by ity of 13:08: mouth. [place] [address] Medical Branch KCL 10 mEq 2-0 Yes 10meq Take 10 Uni vers tablet 5-11 mEq by ity of 13:08: mouth. [place] [address] Medical Branch KCL 10 mEq 2-0 Yes 10meq Take 10 Uni vers tablet 5-11 mEq by ity of 13:08: mouth. [place] [address] Medical Branch KCL 10 mEq 2-0 Yes 10meq Take 10 Uni vers tablet 5-11 mEq by ity of 13:08: mouth. [place] [address] Medical Branch KCL 10 mEq 2-0 Yes 10meq Take 10 Uni vers tablet 5-11 mEq by ity of 13:08: mouth. [place] [address] Medical Branch KCL 10 mEq 2-0 Yes 10meq Take 10 Uni vers tablet 5-11 mEq by ity of 13:08: mouth. [place] [address] Medical Branch KCL 10 mEq 2-0 Yes 10meq Take 10 Uni vers tablet 5-11 mEq by ity of 13:08: mouth. [place] 06 Medical Branch KCL 10 mEq 2021-0 Yes 10meq Take 10 Uni vers tablet 5-11 mEq by ity of 13:08: mouth. [address] Branch KCL 10 mEq 2021-0 Yes 10meq Take 10 Uni vers tablet 5-11 mEq by ity of 13:08: mouth. [address] Branch KCL 10 mEq 2021-0 Yes 10meq Take 10 Uni vers tablet 5-11 mEq by ity of 13:08: mouth. [address] Branch KCL 10 mEq 2021-0 Yes 10meq Take 10 Uni vers tablet 5-11 mEq by ity of 13:08: mouth. [address] Branch KCL 10 mEq 2021-0 Yes 10meq Take 10 Uni vers tablet 5-11 mEq by ity of 13:08: mouth. [address] Branch KCL 10 mEq 2021-0 Yes 10meq Take 10 Uni vers tablet 5-11 mEq by ity of 13:08: mouth. [address] Branch KCL 10 mEq 2021-0 Yes 10meq Take 10 Uni vers tablet 5-11 mEq by ity of 13:08: mouth. [address] Branch KCL 10 mEq 2021-0 Yes 10meq Take 10 Uni vers tablet 5-11 mEq by ity of 13:08: mouth. [address] Branch KCL 10 mEq 2021-0 Yes 10meq Take 10 Uni vers tablet 5-11 mEq by ity of 13:08: mouth. [address] Branch KCL 10 mEq 2021-0 Yes 10meq Take 10 Uni vers tablet 5-11 mEq by ity of 13:08: mouth. [address] KCL 10 mEq 2021-0 Yes 10meq Take 10 Uni vers tablet 5-11 mEq by ity of 13:08: mouth. [address] Branch KCL 10 mEq 2021-0 Yes 10meq Take 10 Uni vers tablet 5-11 mEq by ity of 13:08: mouth. [address] Branch KCL 10 mEq 2021-0 Yes 10meq Take 10 Uni vers tablet 5-11 mEq by ity of 13:08: mouth. [address] Branch calcium-mag 2021-0 Yes 1{tbl} QD Take 1 [facility] nesium-zinc 5-[address] tablet 13:11: mouth [facility]osp[facility] 01 daily. l Lactobacill 2021-0 Yes 1{capsu QD Take 1 M ethodi [...] tablet per times a tablet day. furosemide 2021- No 60mg Q.5D Take 60 mg [...] tablet per times a tablet day. furosemide 2021- No 60mg Q.5D Take 60 mg [facility] (LASIX) 20 5-04 05-[address] mg tablet 13:11: 00:00 (two) Hospit a 34 :00 times a l day. ALPRAZolam 2021-0 Yes 2mg Q.[id number] Take 2 mg [facility] (XANAX) 2 5-04 [id number] by mouth 3 st MG tablet 13:11: 3D (three) Hospi ta 31 times a l day as needed for anxiety. potassium 2022-0 Yes 10meq QD Take 10 Meth chris chloride 5-[address] (K-DUR) 10 13:11: mouth Hospit a MEQ CR 31 daily. l tablet aspirin 325 2022-0 Yes 325mg QD Take 325 M [facility] [...] prior to furosemide ALPRAZolam 2021-0 Yes 2mg Q.[id number] Take 2 mg [facility] (XANAX) 2 5-04 [id number] by mouth 3 [address] MG tablet 13:11: 3D (three) Hospi ta 31 times a l day as needed for anxiety. potassium 2021-0 Yes 10meq QD Take 10 Meth chris [...] Take one hour prior to furosemide hydrocortis 2022-0 2022- No Q.5D Insert [facility] one 5- 06-[address] (ANUSOL-HC) 00:00: 04:59 rectum 2 H ospita 2.5 % 00 :00 (two) l rectal times a cream day for 30 days. furosemide 2021- No 80mg Q.[id number] Take 1 [facility] (LASIX) 80 12-21- [id number] tablet (80 st mg tablet 00:00: 04:59 3D mg total) Ho spita 00 :00 by mouth 3 l (three) times a day for 30 days. hydrocortis 2021-2021- No Q.5D Insert [facility] one 12-[address] (ANUSOL-HC) 00:00: 04:59 rectum 2 H ospita 2.5 % 00 :00 (two) l rectal times a cream day for 30 days. furosemide 2021- No 80mg Q.[id number] Take 1 [facility] (LASIX) 80 12-21- [id number] tablet (80 st mg tablet 00:00: 04:59 3D mg total) [facility] 00 :00 by mouth 3 l (three) times a day for 30 days. ascorbic 2021- No QD Take by Meth[facility] di acid, 12-14- mouth st vitamin C, 08:18: 00:00 daily. [facility] (VITAMIN C) 55 :00 Patient l 250 MG does not tablet know amount ascorbic 2021- No QD Take by Metho di acid, 12-14-[address] vitamin C, 08:18: 00:00 daily. [facility] (VITAMIN C) 55 :00 Patient l 250 MG does not tablet know amount polyethylen 0 Yes [id number] 1{packe Take 1 [facility] glycol 3-06 t} Packet by ity of 3350 00:00: mouth [place] (MIRALAX) 00 every 24 Medica l 17 gram (twenty-fo Branch powder ur) hours as needed for Constipati on. polyethylen 2021-0 Yes [id number] 1{packe Take 1 [facility] glycol 3-06 t} Packet by [facility]y of 3350 00:00: mouth [place] (MIRALAX) 00 every 24 Medica l 17 gram (twenty-fo Branch powder ur) hours as needed for Constipati on. polyethylen Yes [id number] 1{packe Take 1 [facility] glycol 3-06 t} Packet by ity of 3350 00:00: mouth [place] (MIRALAX) 00 every 24 Medica l 17 gram (twenty-fo Branch powder ur) hours as needed for Constipati on. polyethylen Yes [id number] 1{packe Take 1 [facility] glycol 3-06 [...] as needed for Constipati on. polyethylen Yes [id number] 1{packe Take 1 [facility] glycol 3-06 t} Packet by [facility]y of 3350 00:00: mouth [place] (MIRALAX) 00 every 24 Medica l 17 gram (twenty-fo Branch powder ur) hours as needed for Constipati on. polyethylen Yes [id number] 1{packe Take 1 [facility] glycol 3-06 t} Packet by [facility]y of 3350 00:00: mouth [place] (MIRALAX) 00 every 24 Medica l 17 gram (twenty-fo Branch powder ur) hours as needed for Constipati on. polyethylen Yes [id number] 1{packe Take 1 [facility] glycol 3-06 t} Packet by ity of 3350 00:00: mouth [place] (MIRALAX) 00 every 24 Medica l 17 gram (twenty-fo Branch powder ur) hours as needed for Constipati on. polyethylen Yes [id number] 1{packe Take 1 [facility] glycol 3-06 t} Packet by [facility]y of 3350 00:00: mouth [place] (MIRALAX) 00 every 24 Medica l 17 gram (twenty-fo Branch powder ur) hours as needed for Constipati on. polyethylen Yes [id number] 1{packe Take 1 [facility] glycol 3-06 t} Packet by ity of 3350 00:00: mouth [place] (MIRALAX) 00 every 24 Medica l 17 gram (twenty-fo Branch powder ur) hours as needed for Constipati on. polyethylen Yes [id number] 1{packe Take 1 [facility] glycol 3-06 [...] as needed for Constipati on. polyethylen Yes [id number] 1{packe Take 1 [facility] glycol 3-06 t} Packet by ity of 3350 00:00: mouth [place] (MIRALAX) 00 every 24 Medica l 17 gram (twenty-fo Branch powder ur) hours as needed for Constipati on. polyethylen Yes [id number] 1{packe Take 1 [facility] glycol 3-06 t} Packet by ity of 3350 00:00: mouth [place] (MIRALAX) 00 every 24 Medica l 17 gram (twenty-fo Branch powder ur) hours as needed for Constipati on. polyethylen Yes [id number] 1{packe Take 1 [facility] glycol 3-06 t} Packet by ity of 3350 00:00: mouth [place] (MIRALAX) 00 every 24 Medica l 17 gram (twenty-fo Branch powder ur) hours as needed for Constipati on. polyethylen Yes [id number] 1{packe Take 1 [facility] glycol 3-06 t} Packet by ity of 3350 00:00: mouth [place] (MIRALAX) 00 every 24 Medica l 17 gram (twenty-fo Branch powder ur) hours as needed for Constipati on. polyethylen Yes [id number] 1{packe Take 1 [facility] glycol 3-06 t} Packet by ity of 3350 00:00: mouth [place] (MIRALAX) 00 every 24 Medica l 17 gram (twenty-fo Branch powder ur) hours as needed for Constipati on. polyethylen Yes [id number] 1{packe Take 1 [facility] glycol 3-06 t} Packet by ity of 3350 00:00: mouth [place] (MIRALAX) 00 every 24 Medica l 17 gram (twenty-fo Branch powder ur) hours as needed for Constipati on. polyethylen 0 Yes [id number] 1{packe Take 1 [facility] glycol 3-06 t} Packet by ity of 3350 00:00: mouth [place] (MIRALAX) 00 every 24 Medica l 17 gram (twenty-fo Branch powder ur) hours as needed for Constipati on. polyethylen Yes [id number] 1{packe Take 1 [facility] glycol 3-06 t} Packet by ity of 3350 00:00: mouth [place] (MIRALAX) 00 every 24 Medica l 17 gram (twenty-fo Branch powder ur) hours as needed for Constipati on. polyethylen Yes [id number] 1{packe Take 1 [facility] glycol 3-06 t} Packet by ity of 3350 00:00: mouth [place] (MIRALAX) 00 every 24 Medica l 17 gram (twenty-fo Branch powder ur) hours as needed for Constipati on. polyethylen Yes [id number] 1{packe Take 1 [facility] glycol 3-06 t} Packet by ity of 3350 00:00: mouth [place] (MIRALAX) 00 every 24 Medica l 17 gram (twenty-fo Branch powder ur) hours as needed for Constipati on. polyethylen Yes [id number] 1{packe Take 1 [facility] glycol 3-06 t} Packet by ity of 3350 00:00: mouth [place] (MIRALAX) 00 every 24 Medica l 17 gram (twenty-fo Branch powder ur) hours as needed for Constipati on. dicyclomine 0 Yes [id number] 20mg Take 1 [facility] 20 mg 2-27 tablet by ity of tablet 00:00: mouth [place] 00 every 6 Medical (six) Branch hours as needed for Abdominal pain. dicyclomine 0 Yes [id number] 20mg Take 1 [facility] 20 mg 2-27 tablet by ity of tablet 00:00: mouth [place] 00 every 6 Medical (six) Branch hours as needed for Abdominal pain. dicyclomine 2022-0 Yes [id number] 20mg Take 1 [facility] 20 mg 2-27 tablet by ity of tablet 00:00: mouth [place] 00 every 6 Medical (six) Branch hours as needed for Abdominal pain. dicyclomine 2022-0 Yes [id number] 20mg Take 1 [facility] 20 mg 2-27 tablet by ity of tablet 00:00: mouth [place] 00 every 6 Medical (six) Branch hours as needed for Abdominal pain. dicyclomine 2022-0 Yes [id number] 20mg Take 1 [facility] 20 mg 2-27 tablet by ity of tablet 00:00: mouth [place] 00 every 6 Medical (six) Branch hours as needed for Abdominal pain. dicyclomine 2022-0 Yes [id number] 20mg Take 1 [facility] 20 mg 2-27 tablet by ity of tablet 00:00: mouth [place] 00 every 6 Medical (six) Branch hours as needed for Abdominal pain. dicyclomine 2022-0 Yes [id number] 20mg Take 1 [facility] 20 mg 2-27 tablet by ity of tablet 00:00: mouth [place] 00 every 6 Medical (six) Branch hours as needed for Abdominal pain. dicyclomine 2022-0 Yes [id number] 20mg Take 1 [facility] 20 mg 2-27 tablet by ity of tablet 00:00: mouth [place] 00 every 6 Medical (six) Branch hours as needed for Abdominal pain. dicyclomine 2022-0 Yes [id number] 20mg Take 1 [facility] 20 mg 2-27 tablet by ity of tablet 00:00: mouth [place] 00 every 6 Medical (six) Branch hours as needed for Abdominal pain. dicyclomine 2022-0 Yes [id number] 20mg Take 1 [facility] 20 mg 2-27 tablet by ity of tablet 00:00: mouth [place] 00 every 6 Medical (six) Branch hours as needed for Abdominal pain. dicyclomine 2022-0 Yes [id number] 20mg Take 1 [facility] 20 mg 2-27 tablet by ity of tablet 00:00: mouth [place] 00 every 6 Medical (six) Branch hours as needed for Abdominal pain. dicyclomine 2022-0 Yes [id number] 20mg Take 1 [facility] 20 mg 2-27 tablet by ity of tablet 00:00: mouth [place] 00 every 6 Medical (six) Branch hours as needed for Abdominal pain. dicyclomine 2022-0 Yes [id number] 20mg Take 1 [facility] 20 mg 2-27 tablet by ity of tablet 00:00: mouth [place] 00 every 6 Medical (six) Branch hours as needed for Abdominal pain. dicyclomine 2022-0 Yes [id number] 20mg Take 1 [facility] 20 mg 2-27 tablet by ity of tablet 00:00: mouth [place] 00 every 6 Medical (six) Branch hours as needed for Abdominal pain. dicyclomine 2022-0 Yes [id number] 20mg Take 1 [facility] 20 mg 2-27 tablet by ity of tablet 00:00: mouth [place] 00 every 6 Medical (six) Branch hours as needed for Abdominal pain. dicyclomine 2022-0 Yes [id number] 20mg Take 1 [facility] 20 mg 2-27 tablet by ity of tablet 00:00: mouth [place] 00 every 6 Medical (six) Branch hours as needed for Abdominal pain. dicyclomine 2022-0 Yes [id number] 20mg Take 1 [facility] 20 mg 2-27 tablet by ity of tablet 00:00: mouth [place] 00 every 6 Medical (six) Branch hours as needed for Abdominal pain. dicyclomine 2022-0 Yes [id number] 20mg Take 1 [facility] 20 mg 2-27 tablet by ity of tablet 00:00: mouth [place] 00 every 6 Medical (six) Branch hours as needed for Abdominal pain. dicyclomine 2022-0 Yes [id number] 20mg Take 1 [facility] 20 mg 2-27 tablet by ity of tablet 00:00: mouth [place] 00 every 6 Medical (six) Branch hours as needed for Abdominal pain. dicyclomine 2022-0 Yes [id number] 20mg Take 1 [facility] 20 mg 2-27 tablet by ity of tablet 00:00: mouth [place] 00 every 6 Medical (six) Branch hours as needed for Abdominal pain. dicyclomine 2022-0 Yes [id number] 20mg Take 1 [facility] 20 mg 2-27 tablet by ity of tablet 00:00: mouth [place] 00 every 6 Medical (six) Branch hours as needed for Abdominal pain. dicyclomine 2022-0 Yes [id number] 20mg Take 1 [facility] 20 mg 2-27 tablet by ity of tablet 00:00: mouth [place] 00 every 6 Medical (six) Branch hours as needed for Abdominal pain. dicyclomine 0 Yes [id number] 20mg Take 1 [facility] 20 mg 2-27 tablet by ity of tablet 00:00: mouth [place] [address] every 6 Medical (six) Branch hours as needed for Abdominal pain. amiodarone 0 Yes 200mg Take 200 Un jennifer 200 mg 2-22 mg by ity of tablet 10:30: mouth. [address] aspirin 325 2021-0 Yes 325mg Take 325 U nivers mg tablet 2-22 mg by ity of 10:30: mouth. [address] Branch amiodarone 2021-0 Yes 200mg Take 200 Un jennifer 200 mg 2-22 mg by ity of tablet 10:30: mouth. [address] Branch aspirin 325 2021-0 Yes 325mg Take 325 U nivers mg tablet 2-22 mg by ity of 10:30: mouth. [address] amiodarone 2021-0 Yes 200mg Take 200 Un jennifer 200 mg 2-22 mg by ity of tablet 10:30: mouth. [address] aspirin 325 2021-0 Yes 325mg Take 325 U nivers mg tablet 2-22 mg by ity of 10:30: mouth. [address] amiodarone 2021-0 Yes 200mg Take 200 Un jennifer 200 mg 2-22 mg by ity of tablet 10:30: mouth. [address] aspirin 325 2021-0 Yes 325mg Take 325 U nivers mg tablet 2-22 mg by ity of 10:30: mouth. [address] amiodarone 2021-0 Yes 200mg Take 200 Un jennifer 200 mg 2-22 mg by ity of tablet 10:30: mouth. [address] aspirin 325 2021-0 Yes 325mg Take 325 U nivers mg tablet 2-22 mg by ity of 10:30: mouth. [address] amiodarone 2021-0 Yes 200mg Take 200 Un jennifer 200 mg 2-22 mg by ity of tablet 10:30: mouth. [address] aspirin 325 2021-0 Yes 325mg Take 325 U nivers mg tablet 2-22 mg by ity of 10:30: mouth. [address] amiodarone 2021-0 Yes 200mg Take 200 Un jennifer 200 mg 2-22 mg by ity of tablet 10:30: mouth. [place] [address] Medical Branch aspirin 325 2-0 Yes 325mg Take 325 U nivers mg tablet 2-22 mg by ity of 10:30: mouth. [place] [address] Medical Branch amiodarone 2021-0 Yes 200mg Take 200 Un jennifer 200 mg 2-22 mg by ity of tablet 10:30: mouth. [place] [address] Medical Branch aspirin 325 2021-0 Yes 325mg Take 325 U nivers mg tablet 2-22 mg by ity of 10:30: mouth. [place] [address] Medical Branch amiodarone 2021-0 Yes 200mg Take 200 Un jennifer 200 mg 2-22 mg by ity of tablet 10:30: mouth. [address] Branch aspirin 325 2021-0 Yes 325mg Take 325 U nivers mg tablet 2-22 mg by ity of 10:30: mouth. [address] Branch amiodarone 2021-0 Yes 200mg Take 200 Un jennifer 200 mg 2-22 mg by ity of tablet 10:30: mouth. [place] [address] Medical Branch aspirin 325 2021-0 Yes 325mg Take 325 U nivers mg tablet 2-22 mg by ity of 10:30: mouth. [place] [address] Medical Branch amiodarone 2021-0 Yes 200mg Take 200 Un jennifer 200 mg 2-22 mg by ity of tablet 10:30: mouth. [place] [address] Medical Branch aspirin 325 2-0 Yes 325mg Take 325 U nivers mg tablet 2-22 mg by ity of 10:30: mouth. [place] [address] Medical Branch amiodarone 2021-0 Yes 200mg Take 200 Un jennifer 200 mg 2-22 mg by ity of tablet 10:30: mouth. [place] [address] Medical Branch aspirin 325 2-0 Yes 325mg Take 325 U nivers mg tablet 2-22 mg by ity of 10:30: mouth. [place] [address] Medical Branch amiodarone 2-0 Yes 200mg Take 200 Un jennifer 200 mg 2-22 mg by ity of tablet 10:30: mouth. [address] Branch aspirin 325 2-0 Yes 325mg Take 325 U nivers mg tablet 2-22 mg by ity of 10:30: mouth. [address] Branch amiodarone 2021-0 Yes 200mg Take 200 Un jennifer 200 mg 2-22 mg by ity of tablet 10:30: mouth. [place] [address] Medical Branch aspirin 325 2-0 Yes 325mg Take 325 U nivers mg tablet 2-22 mg by ity of 10:30: mouth. [place] [address] Medical Branch amiodarone 2021-0 Yes 200mg Take 200 Un jennifer 200 mg 2-22 mg by ity of tablet 10:30: mouth. [place] [address] [facility] Branch aspirin 325 2-0 Yes 325mg Take 325 U nivers mg tablet 2-22 mg by ity of 10:30: mouth. [place] [address] Medical Branch amiodarone 2021-0 Yes 200mg Take 200 Un jennifer 200 mg 2-22 mg by ity of tablet 10:30: mouth. [place] [address] Medical Branch aspirin 325 2021-0 Yes 325mg Take 325 U nivers mg tablet 2-22 mg by ity of 10:30: mouth. [address] Branch amiodarone 2021-0 Yes 200mg Take 200 Un jennifer 200 mg 2-22 mg by ity of tablet 10:30: mouth. [place] [address] Medical Branch aspirin 325 2021-0 Yes 325mg Take 325 U nivers mg tablet 2-22 mg by ity of 10:30: mouth. [place] [address] Medical Branch amiodarone 2021-0 Yes 200mg Take 200 Un jennifer 200 mg 2-22 mg by ity of tablet 10:30: mouth. [place] [address] [facility] Branch aspirin 325 2021-0 Yes 325mg Take 325 U nivers mg tablet 2-22 mg by ity of 10:30: mouth. [place] [address] Medical Branch amiodarone 2021-0 Yes 200mg Take 200 Un jennifer 200 mg 2-22 mg by ity of tablet 10:30: mouth. [place] [address] Medical Branch aspirin 325 2-0 Yes 325mg Take 325 U nivers mg tablet 2-22 mg by ity of 10:30: mouth. [place] [address] Medical Branch amiodarone 2-0 Yes 200mg Take 200 Un jennifer 200 mg 2-22 mg by ity of tablet 10:30: mouth. [place] [address] Medical Branch aspirin 325 2-0 Yes 325mg Take 325 U nivers mg tablet 2-22 mg by ity of 10:30: mouth. [address] Branch amiodarone 2021-0 Yes 200mg Take 200 Un jennifer 200 mg 2-22 mg by ity of tablet 10:30: mouth. [address] aspirin 325 2-0 Yes 325mg Take 325 U nivers mg tablet 2-22 mg by ity of 10:30: mouth. [address] Branch amiodarone 2-0 Yes 200mg Take 200 Un jennifer 200 mg 2-22 mg by ity of tablet 10:30: mouth. [address] aspirin 325 2-0 Yes 325mg Take 325 U nivers mg tablet 2-22 mg by ity of 10:30: mouth. [address] Branch amiodarone 2-0 Yes 200mg Take 200 Un jenn[facility] 200 mg 2-22 mg by ity of tablet 10:30: mouth. [address] aspirin 325 2-0 Yes 325mg Take 325 U nivers mg tablet 2-22 mg by ity of 10:30: mouth. [address] spironolact 2-0 Yes .5mg Take 0.5 Un jennifer one 25 mg 2-22 mg by ity of tablet 10:30: mouth. [address] Branch spironolact 2022-0 Yes .5mg Take 0.5 Un jennifer one 25 mg 2-22 mg by ity of tablet 10:30: mouth. [address] spironolact 2-0 Yes .5mg Take 0.5 Un jennifer one 25 mg 2-22 mg by ity of tablet 10:30: mouth. [address] spironolact 2022-0 Yes .5mg Take 0.5 Un jennifer one 25 mg 2-22 mg by ity of tablet 10:30: mouth. [address] spironolact 2022-0 Yes .5mg Take 0.5 Un jennifer one 25 mg 2-22 mg by ity of tablet 10:30: mouth. [address] spironolact 2022-0 Yes .5mg Take 0.5 Un jennifer one 25 mg 2-22 mg by ity of tablet 10:30: mouth. [address] spironolact 2022-0 Yes .5mg Take 0.5 Un jennifer one 25 mg 2-22 mg by ity of tablet 10:30: mouth. [address] spironolact 2022-0 Yes .5mg Take 0.5 Un jennifer one 25 mg 2-22 mg by ity of tablet 10:30: mouth. [place] [address] Medical Branch spironolact 2022-0 Yes .5mg Take 0.5 Un jennifer one 25 mg 2-22 mg by ity of tablet 10:30: mouth. [place] [address] Medical Branch spironolact 2022-0 Yes .5mg Take 0.5 Un jennifer one 25 mg 2-22 mg by ity of tablet 10:30: mouth. [place] [address] Medical Branch spironolact 2022-0 Yes .5mg Take 0.5 Un jennifer one 25 mg 2-22 mg by ity of tablet 10:30: mouth. [place] [address] [facility] Branch spironolact 2022-0 Yes .5mg Take 0.5 Un jennifer one 25 mg 2-22 mg by ity of tablet 10:30: mouth. [place] [address] Medical Branch spironolact 2022-0 Yes .5mg Take 0.5 Un jennifer one 25 mg 2-22 mg by ity of tablet 10:30: mouth. [place] [address] Medical Branch spironolact 2022-0 Yes .5mg Take 0.5 Un jennifer one 25 mg 2-22 mg by ity of tablet 10:30: mouth. [place] [address] [facility] Branch spironolact 2022-0 Yes .5mg Take 0.5 Un jennifer one 25 mg 2-22 mg by ity of tablet 10:30: mouth. [place] [address] [facility] Branch spironolact 2022-0 Yes .5mg Take 0.5 Un jennifer one 25 mg 2-22 mg by ity of tablet 10:30: mouth. [place] [address] [facility] Branch spironolact 2022-0 Yes .5mg Take 0.5 Un jennifer one 25 mg 2-22 mg by ity of tablet 10:30: mouth. [place] [address] Medical Branch spironolact 2022-0 Yes .5mg Take 0.5 Un jennifer one 25 mg 2-22 mg by ity of tablet 10:30: mouth. [place] [address] Medical Branch spironolact 2022-0 Yes .5mg Take 0.5 Un jennifer one 25 mg 2-22 mg by ity of tablet 10:30: mouth. [address] Branch spironolact 2022-0 Yes .5mg Take 0.5 Un jennifer one 25 mg 2-22 mg by ity of tablet 10:30: mouth. [address] Branch spironolact Yes .5mg Take 0.5 Un jennifer one 25 mg 2-22 mg by ity of tablet 10:30: mouth. [address] Branch spironolact 0 Yes .5mg Take 0.5 Un jennifer one 25 mg 2-22 mg by ity of tablet 10:30: mouth. [address] Branch spironolact Yes .5mg Take 0.5 Un jennifer one 25 mg 2-22 mg by ity of tablet 10:30: mouth. [address] Branch ALPRAZolam 2021- No [id number] TAKE 1 [facility] 2 mg tablet 2-22 [...] mg by ity of tablet 19:32: mouth. [address] Branch DIGOXIN Yes Take by Univers ORAL 7-10 mouth. ity of 19:00: [address] Branch ENALAPRIL Yes Take by Unive rs MALEATE 7-10 mouth. ity of ORAL 19:00: [address] Branch sacubitril- Yes Take by Uni vers valsartan 7-10 mouth 2 ity of (ENTRESTO) 19:00: (two) [place] 24-26 mg 17 times Medical Tab daily. Branch furosemide 2019-0 Yes 80mg Take 80 mg U nivers (LASIX) 80 7-10 by mouth ity o f mg tablet 19:00: daily. [address] ENALAPRIL Yes Take by Unive rs MALEATE 7-10 mouth. ity of ORAL 14:00: [address] sacubitril- Yes Take by Uni vers valsartan 7-10 mouth 2 ity of (ENTRESTO) 14:00: (two) [place] 24-26 mg 17 times Medical Tab daily. Branch furosemide Yes 80mg Take 80 mg U [facility]ivers (LASIX) 80 7-10 by mouth ity o f mg tablet 14:00: daily. [address] DIGOXIN Yes Take by Univers ORAL 7-10 mouth. ity of 14:00: [address] ENALAPRIL Yes Take by Unive rs MALEATE 7-10 mouth. ity of ORAL 14:00: [address] sacubitril- Yes Take by Uni vers valsartan 7-10 mouth 2 ity of (ENTRESTO) 14:00: (two) [place] 24-26 mg 17 times Medical Tab daily. Branch furosemide Yes 80mg Take 80 mg U nivers (LASIX) 80 7-10 by mouth ity o f mg tablet 14:00: daily. [address] DIGOXIN 2018- Yes Take by [facility] ORAL 7-10 mouth. ity of 14:00: [address] ENALAPRIL Yes Take by Unive rs MALEATE 7-10 mouth. ity of ORAL 14:00: [address] sacubitril- Yes Take by Uni vers valsartan 7-10 mouth 2 ity of (ENTRESTO) 14:00: (two) [place] 24-26 mg 17 times Medical Tab daily. Branch furosemide Yes 80mg Take 80 mg U nivers (LASIX) 80 7-10 by mouth ity o f mg tablet 14:00: daily. [address] DIGOXIN 2018-0 Yes Take by [facility] ORAL 7-10 mouth. ity of 14:00: [address] ENALAPRIL Yes Take by Unive rs MALEATE 7-10 mouth. ity of ORAL 14:00: [address] sacubitril- Yes Take by Uni vers valsartan 7-10 mouth 2 ity of (ENTRESTO) 14:00: (two) [place] 24-26 mg 17 times Medical Tab daily. Branch furosemide Yes 80mg Take 80 mg U nivers (LASIX) 80 7-10 by mouth ity o f mg tablet 14:00: daily. [address] DIGOXIN Yes Take by [facility] ORAL 7-10 mouth. ity of 14:00: [address] ENALAPRIL Yes Take by Unive rs MALEATE 7-10 mouth. ity of ORAL 14:00: [address] sacubitril- Yes Take by Uni vers valsartan 7-10 mouth 2 ity of (ENTRESTO) 14:00: (two) [place] 24-26 mg 17 times Medical Tab daily. Branch furosemide Yes 80mg Take 80 mg U nivers (LASIX) 80 7-10 by mouth ity o f mg tablet 14:00: daily. [address] DIGOXIN Yes Take by [facility] ORAL 7-10 mouth. ity of 14:00: [address] ENALAPRIL Yes Take by Unive rs MALEATE 7-10 mouth. ity of ORAL 14:00: [address] sacubitril- Yes Take by Un jennifer valsartan 7-10 mouth 2 ity of (ENTRESTO) 14:00: (two) [place] 24-26 mg 17 times Medical Tab daily. Branch furosemide Yes 80mg Take 80 mg U nivers (LASIX) 80 7-10 by mouth ity o f mg tablet 14:00: daily. [address] DIGOXIN Yes Take by [facility] ORAL 7-10 mouth. ity of 14:00: [address] ENALAPRIL Yes Take by Unive rs MALEATE 7-10 mouth. ity of ORAL 14:00: [address] sacubitril- Yes Take by Uni vers valsartan 7-10 mouth 2 ity of (ENTRESTO) 14:00: (two) [place] 24-26 mg 17 times Medical Tab daily. Branch furosemide Yes 80mg Take 80 mg U nivers (LASIX) 80 7-10 by mouth ity o f mg tablet 14:00: daily. [address] Branch DIGOXIN 2018-0 Yes Take by [facility] ORAL 7-10 mouth. ity of 14:00: [address] ENALAPRIL 2018-0 Yes Take by Unive rs MALEATE 7-10 mouth. ity of ORAL 14:00: [address] Branch sacubitril- Yes Take by Uni vers valsartan 7-10 mouth 2 ity of (ENTRESTO) 14:00: (two) [place] 24-26 mg 17 times Medical Tab daily. Branch furosemide 0 Yes 80mg Take 80 mg U nivers (LASIX) 80 7-10 by mouth ity o f mg tablet 14:00: daily. [address] DIGOXIN Yes Take by [facility] ORAL 7-10 mouth. ity of 14:00: [address] ENALAPRIL Yes Take by Unive rs MALEATE 7-10 mouth. ity of ORAL 14:00: [address] sacubitril- Yes Take by Uni vers valsartan 7-10 mouth 2 ity of (ENTRESTO) 14:00: (two) [place] 24-26 mg 17 times Medical Tab daily. Branch furosemide 0 Yes 80mg Take 80 mg U nivers (LASIX) 80 7-10 by mouth ity o f mg tablet 14:00: daily. [address] DIGOXIN 2018-0 Yes Take by [facility] ORAL 7-10 mouth. ity of 14:00: [address] ENALAPRIL 2018- Yes Take by Unive rs MALEATE 7-10 mouth. ity of ORAL 14:00: [address] sacubitril- Yes Take by Uni vers valsartan 7-10 mouth 2 ity of (ENTRESTO) 14:00: (two) [place] 24-26 mg 17 times Medical Tab daily. Branch furosemide 2019-0 Yes 80mg Take 80 mg U nivers (LASIX) 80 7-10 by mouth ity o f mg tablet 14:00: daily. [address] DIGOXIN 2018-0 Yes Take by [facility] ORAL 7-10 mouth. ity of 14:00: [address] ENALAPRIL 2018-0 Yes Take by Unive rs MALEATE 7-10 mouth. ity of ORAL 14:00: [address] Branch sacubitril- 0 Yes Take by Uni vers valsartan 7-10 mouth 2 ity of (ENTRESTO) 14:00: (two) [place] 24-26 mg 17 times Medical Tab daily. Branch furosemide 2019-0 Yes 80mg Take 80 mg U nivers (LASIX) 80 7-10 by mouth ity o f mg tablet 14:00: daily. [address] Branch DIGOXIN 2018-0 Yes Take by [facility] ORAL 7-10 mouth. ity of 14:00: [address] ENALAPRIL 0 Yes Take by Unive rs MALEATE 7-10 mouth. ity of ORAL 14:00: [address] sacubitril- Yes Take by Uni vers valsartan 7-10 mouth 2 ity of (ENTRESTO) 14:00: (two) [place] 24-26 mg 17 times Medical Tab daily. Branch furosemide Yes 80mg Take 80 mg U nivers (LASIX) 80 7-10 by mouth ity o f mg tablet 14:00: daily. [address] DIGOXIN Yes Take by [facility] ORAL 7-10 mouth. ity of 14:00: [address] ENALAPRIL Yes Take by Unive rs MALEATE 7-10 mouth. ity of ORAL 14:00: [address] sacubitril- Yes Take by Uni vers valsartan 7-10 mouth 2 ity of (ENTRESTO) 14:00: (two) [place] 24-26 mg 17 times Medical Tab daily. Branch furosemide 0 Yes 80mg Take 80 mg U nivers (LASIX) 80 7-10 by mouth ity o f mg tablet 14:00: daily. [address] DIGOXIN 2018-0 Yes Take by Univers ORAL 7-10 mouth. ity of 14:00: [address] ENALAPRIL 2018-0 Yes Take by Unive rs MALEATE 7-10 mouth. ity of ORAL 14:00: [address] sacubitril- 0 Yes Take by Uni vers valsartan 7-10 mouth 2 ity of (ENTRESTO) 14:00: (two) [place] 24-26 mg 17 times Medical Tab daily. Branch furosemide 0 Yes 80mg Take 80 mg U nivers (LASIX) 80 7-10 by mouth ity o f mg tablet 14:00: daily. [address] Branch DIGOXIN 2018-0 Yes Take by Univers ORAL 7-10 mouth. ity of 14:00: [address] ENALAPRIL 0 Yes Take by Unive rs MALEATE 7-10 mouth. ity of ORAL 14:00: [address] Branch sacubitril- Yes Take by Uni vers valsartan 7-10 mouth 2 ity of (ENTRESTO) 14:00: (two) [place] 24-26 mg 17 times Medical Tab daily. Branch furosemide Yes 80mg Take 80 mg U nivers (LASIX) 80 7-10 by mouth ity o f mg tablet 14:00: daily. [address] DIGOXIN Yes Take by Univers ORAL 7-10 mouth. ity of 14:00: [address] ENALAPRIL Yes Take by Unive rs MALEATE 7-10 mouth. ity of ORAL 14:00: [address] sacubitril- Yes Take by Uni vers valsartan 7-10 mouth 2 ity of (ENTRESTO) 14:00: (two) [place] 24-26 mg 17 times Medical Tab daily. Branch furosemide 0 Yes 80mg Take 80 mg U nivers (LASIX) 80 7-10 by mouth ity o f mg tablet 14:00: daily. [address] DIGOXIN 2018-0 Yes Take by Univers ORAL 7-10 mouth. ity of 14:00: [address] ENALAPRIL 2018-0 Yes Take by Unive rs MALEATE 7-10 mouth. ity of ORAL 14:00: [address] Branch sacubitril- 0 Yes Take by Uni vers valsartan 7-10 mouth 2 ity of (ENTRESTO) 14:00: (two) [place] 24-26 mg 17 times Medical Tab daily. Branch furosemide 2019-0 Yes 80mg Take 80 mg U nivers (LASIX) 80 7-10 by mouth ity o f mg tablet 14:00: daily. [address] DIGOXIN 2018-0 Yes Take by Univers ORAL 7-10 mouth. ity of 14:00: [address] ENALAPRIL 2018-0 Yes Take by Unive rs MALEATE 7-10 mouth. ity of ORAL 14:00: [address] Branch sacubitril- Yes Take by Uni vers valsartan 7-10 mouth 2 ity of (ENTRESTO) 14:00: (two) [place] 24-26 mg 17 times Medical Tab daily. Branch furosemide 2018- Yes 80mg Take 80 mg U nivers (LASIX) 80 7-10 by mouth ity o f mg tablet 14:00: daily. [address] DIGOXIN Yes Take by Univers ORAL 7-10 mouth. ity of 14:00: [address] ENALAPRIL Yes Take by Unive rs MALEATE 7-10 mouth. ity of ORAL 14:00: [address] sacubitril- Yes Take by Uni vers valsartan 7-10 mouth 2 ity of (ENTRESTO) 14:00: (two) [place] 24-26 mg 17 times Medical Tab daily. Branch furosemide Yes 80mg Take 80 mg U nivers (LASIX) 80 7-10 by mouth ity o f mg tablet 14:00: daily. [address] DIGOXIN Yes Take by Univers ORAL 7-10 mouth. ity of 14:00: [address] ENALAPRIL Yes Take by Unive rs MALEATE 7-10 mouth. ity of ORAL 14:00: [address] sacubitril- Yes Take by Uni vers valsartan 7-10 mouth 2 ity of (ENTRESTO) 14:00: (two) [place] 24-26 mg 17 times Medical Tab daily. Branch furosemide Yes 80mg Take 80 mg U nivers (LASIX) 80 7-10 by mouth ity o f mg tablet 14:00: daily. [address] DIGOXIN 2018-0 Yes Take by Univers ORAL 7-10 mouth. ity of 14:00: [address] ENALAPRIL Yes Take by Unive rs MALEATE 7-10 mouth. ity of ORAL 14:00: [address] sacubitril- Yes Take by Uni vers valsartan 7-10 mouth 2 ity of (ENTRESTO) 14:00: (two) [place] 24-26 mg 17 times Medical Tab daily. Branch furosemide Yes 80mg Take 80 mg U nivers (LASIX) 80 7-10 by mouth ity o f mg tablet 14:00: daily. [address] DIGOXIN Yes Take by Univers ORAL 7-10 mouth. ity of 14:00: [address] ENALAPRIL Yes Take by Unive rs MALEATE 7-10 mouth. ity of ORAL 14:00: [address] sacubitril- Yes Take by Uni vers valsartan 7-10 mouth 2 ity of (ENTRESTO) 14:00: (two) [place] 24-26 mg 17 times Medical Tab daily. Branch furosemide Yes 80mg Take 80 mg U nivers (LASIX) 80 7-10 by mouth ity o f mg tablet 14:00: daily. [address] DIGOXIN Yes Take by Univers ORAL 7-10 mouth. ity of 14:00: [address] ENALAPRIL Yes Take by Unive rs MALEATE 7-10 mouth. ity of ORAL 14:00: [address] sacubitril- Yes Take by Uni vers valsartan 7-10 mouth 2 ity of (ENTRESTO) 14:00: (two) [place] 24-26 mg 17 times Medical Tab daily. Branch furosemide Yes 80mg Take 80 mg U nivers (LASIX) 80 7-10 by mouth ity o f mg tablet 14:00: daily. [address] DIGOXIN Yes Take by Univers ORAL 7-10 mouth. ity of 14:00: [address] dicyclomine Yes Abdominal 20mg Take 1 Univers (BENTYL) 20 5-07 pain, tablet by it y of mg tablet 00:00: unspecified mouth 4 [place] 00 abdominal (four) Medical location times [place] daily. OMEGA 3 Yes None Univers ORAL 9-21 Entered ity of 20:48: [address] OMEGA 3 Yes None Univers ORAL 9-21 Entered ity of 15:48: [address] OMEGA 3 2015- Yes None Univers ORAL 9-21 Entered ity of 15:48: [address] OMEGA 3 Yes None Univers ORAL 9-21 Entered ity of 15:48: [address] OMEGA 3 2015- Yes None Univers ORAL 9-21 Entered ity of 15:48: [address] OMEGA 3 2015- Yes None Univers ORAL 9-21 Entered ity of 15:48: [address] OMEGA 3 Yes None Univers ORAL 9-21 Entered ity of 15:48: [address] OMEGA 2015- Yes None Univers ORAL 9-21 Entered ity of 15:48: [address] OMEGA 2015- Yes None Univers ORAL 9-21 Entered ity of 15:48: [address] OMEGA 3 2015- Yes None Univers ORAL 9-21 Entered ity of 15:48: [place] [id number] Yes None Univers ORAL 9-21 Entered ity of 15:48: [place] [id number] Yes None Univers ORAL 9-21 Entered ity of 15:48: [place] [id number] Yes None Univers ORAL 9-21 Entered ity of 15:48: [place] [id number] 2015- Yes None Univers ORAL 9-21 Entered ity of 15:48: [address] 3 Yes None Univers ORAL 9-21 Entered ity of 15:48: [address] 3 2015- Yes None Univers ORAL 9-21 Entered ity of 15:48: [address] OMEGA 3 2015- Yes None Univers ORAL 9-21 Entered ity of 15:48: [address] OMEGA 3 2015- Yes None Univers ORAL 9-21 Entered ity of 15:48: [address] 3 2015- Yes None Univers ORAL 9-21 Entered ity of 15:48: [address] 3 2015- Yes None Univers ORAL 9-21 Entered ity of 15:48: [address] OMEGA 3 2015- Yes None Univers ORAL 9-21 Entered ity of 15:48: [address] OMEGA 3 2015- Yes None Univers ORAL 9-21 Entered ity of 15:48: [address] OMEGA 3 2015- Yes None Univers ORAL 9-21 Entered ity of 15:48: [address] OMEGA 3 2015- Yes None Univers ORAL 9-21 Entered ity of 15:48: [place] 28 Medical Branch Vital Signs Vital Name Observation Time Observation Value Comments Source Systolic blood 2022-10-25 04:50:00 100 mm[Hg] Univer sity of pressure [place] [facility] Diastolic blood 2022-10-25 04:50:00 57 mm[Hg] Unive rsity of pressure [facility] [place] [facility] Branch Heart rate 2022-10-25 04:50:00 61 /min Universi ty of [facility] [place] [facility] Branch Respiratory rate 2022-10-25 04:50:00 20 /min Univ ersity of [place] [facility] Oxygen saturation in 2022-10-25 04:50:00 100 /min University of Arterial blood by [place] rosie Pulse oximetry Branch Body temperature 2022-10-25 02:21:00 36.5 Freya Univ ersity of [place] [facility] Body height 2022-10-25 02:21:00 157.5 cm Universi ty of [place] [facility] [place] Body weight 2022-10-25 02:21:00 55.339 kg Universi ty of [place] [facility] BMI 2022-10-25 02:21:00 22.31 kg/m2 Universi ty of [place] [facility] Systolic blood 2022-09-11 15:27:00 101 mm[Hg] Univer sity of pressure [place] [facility] Diastolic blood 2022-09-11 15:27:00 72 mm[Hg] Unive rsity of pressure [facility] [place] [facility] Branch Heart rate 2022-09-11 15:27:00 98 /min Universi ty of [place] [facility] Body temperature 2022-09-11 15:27:00 36.72 Ferya Univ ersity of [facility] [place] [facility] Branch Respiratory rate 2022-09-11 15:27:00 22 /min Univ ersity of [place] [facility] Body height 2022-09-11 15:27:00 157.5 cm Universi ty of [place] [facility] Body weight 2022-09-11 15:27:00 54.148 kg Universi ty of [place] [facility] BMI 2022-09-11 15:27:00 21.83 kg/m2 Universi ty of [place] [facility] Oxygen saturation in 2022-09-11 15:27:00 99 /min University of Arterial blood by [place] rosie Pulse oximetry Branch Systolic blood 2022-08-09 18:17:00 94 mm[Hg] Univer sity of pressure [place] [facility] Diastolic blood 2022-08-09 18:17:00 62 mm[Hg] Unive rsity of pressure [facility] Heart rate 2022-08-09 18:17:00 71 /min Universi ty [facility] Body temperature 2022-08-09 18:17:00 36.61 Freya Univ ersity of [facility] Body height 2022-08-09 18:17:00 160 cm Universi ty [facility] Body weight 2022-08-09 18:17:00 54.704 kg Universi ty [facility] BMI 2022-08-09 18:17:00 21.36 kg/m2 Universi [facility] Oxygen saturation in 2022-08-09 18:17:00 98 /min University of Arterial blood by [facility] Pulse oximetry Branch Systolic blood 2022-02-01 18:52:00 89 mm[Hg] Univer sity of pressure [facility] Diastolic blood 2022-02-01 18:52:00 55 mm[Hg] Unive rsity of [facility] Heart rate 2022-02-01 18:52:00 79 /min Universi ty [facility] Body weight 2022-02-01 18:52:00 51.937 kg Universi ty [facility] BMI 2022-02-01 18:52:00 20.94 kg/m2 [facility] Systolic blood 2021-12-21 12:12:41 99 mm[Hg] [facility] pressure Diastolic blood 2021-12-21 12:12:41 66 mm[Hg] [facility] [place] [facility] pressure Heart rate 2021-12-21 12:12:41 66 /min [facility] Body temperature 2021-12-21 12:12:41 36.17 Freya [facility] Respiratory rate 2021-12-21 12:12:41 17 /min [facility] Oxygen saturation in 2021-12-21 12:12:41 94 /min [facility] Arterial blood by Pulse oximetry Body weight 2021-12-21 10:31:46 52.889 kg [facility] BMI 2021-12-21 10:31:46 21.33 kg/m2 [facility] Body height 2021-12-13 17:15:00 157.5 cm [facility] Procedures Procedure Date / Time Performing Clinician Source Performed TROPONIN I 2022-10-25 03:44:00 Aj Rosen [facility] COMP. METABOLIC PANEL 2022-10-25 03:44:00 Aj Rosen [facility] ([id number]) [facility] CBC WITH DIFF 2022-10-25 03:44:00 Aj Rosen [facility] N-TERMINAL PRO-BNP 2022-10-25 03:44:00 Aj Rosen [facility] XR CHEST 1 VW 2022-10-25 03:07:00 Aj Rosen [facility] COVID-19 (ID NOW RAPID 2022-10-25 02:56:00 Aj Rosen [facility] TESTING) [facility] Branch CONSENT/REFUSAL FOR 2022-10-25 02:12:18 Doctor Unassigned, No [facility] DIAGNOSIS AND TREATMENT [facility] POCT URINALYSIS 2022-08-09 18:41:00 Andrzej Blue [facility] EXTERNAL PROVIDER RECORDS 2022-07-04 06:01:00 Doctor Unassigned, No [facility] CBC WITH PLATELET AND 2021-12-18 06:17:00 Basia Fink [facility] DIFFERENTIAL ANTI XA, UNFRACTIONATED 2021-12-18 06:14:00 [facility] 2021-12-18 06:13:00 Aleks [facility] PANEL ESTIMATED GFR 2021-12-18 06:13:00 Basia [facility]inkist [facility] SODIUM LEVEL 2021-12-17 22:05:00 Juan Arguello [facility] Bharatkumar ANTI XA, UNFRACTIONATED 2021-12-17 18:18[facility]A, UN[facility] 2021-12-17 09:19:00 [facility] 2021-12-17 09:19:00 Aleks [facility] PANEL CBC WITH PLATELET AND 2021-12-17 09:19:00 [facility] DIFFERENTIAL LACTIC ACID LEVEL 2021-12-17 09:19:00 [facility] ESTIMATED GFR 2021-12-17 09:19:00 [facility] BASIC METABOLIC PANEL 2021-12-16 19:33:00 [facility] LACTIC ACID LEVEL 2021-12-16 19:33:00 [facility] ESTIMATED GFR 2021-12-16 19:33:00 [facility] ZZCOVID-19 ANTI-SPIKE IGG 2021-12-16 08:03:00 Basil Crawley [facility] ANTIBODY TITER Marciano ZZCOVID-19 SEROLOGY 2021-12-16 08:03:00 Basil Crawley [facility] PATIENT SURVEILLANCE [facility] BASIC METABOLIC PANEL 2021-12-16 07:32:00 [facility] [place] [facility] B NATRIURETIC PEPTIDE 2021-12-16 07:32:00 [facility] 2021-12-16 07:32:00 [facility] BETA HYDROXYBUTYRATE 2021-12-16 07:32:00 [facility] Bharatkallie ESTIMATED GFR 2021-12-16 07:32:00 [facility] CBC WITH PLATELET AND 2021-12-16 07:32:[address] [facility] URINE CULTURE 2021-12-16 03:17:[facility]IN[facility] AND 2021-12-16 02:14:00 [facility] MICROSCOPY, WITH REFLEX [place]har[place] TO CULTURE BASIC METABOLIC PANEL 2021-12-15 11:11:00 [facility] [place] [facility] B NATRIURETIC PEPTIDE 2021-12-15 11:11:00 [facility] [place] [facility] ESTIMATED GFR 2021-12-15 11:11:00 [facility] MAGNESIUM LEVEL 2021-12-15 11:11:00 Basil Crawleyist [facility] Marciano CBC WITH PLATELET AND 2021-12-15 10:13:00 Basil Crawley [facility] DIFFERENTIAL Marciano TTE COMPLETE, W CONTRAST, 2021-12-14 17:10:00 [facility] W DOPPLER ([id number]) [facility] COVID-19 QUALITATIVE 2021-12-14 09:37:00 , [facility] RT-PCR BASIC METABOLIC PANEL 2021-12-14 09:37:00 [facility] B NATRIURETIC PEPTIDE 2021-12-14 09:37:00 [facility] [place] [facility] LIPID PANEL 2021-12-14 09:37:00 [facility] HEMOGLOBIN A1C 2021-12-14 09:37:00 [facility] ESTIMATED GFR 2021-12-14 09:37:[address] [facility] [address] ABDOMEN PELVIS WO 2021-12-14 03:42:58 , [facility] CONTRAST TROPONIN T 2021-12-14 01:28:00 [facility] US DUPLEX VENOUS LOWER 2021-12-14 01:25:00 [facility] EXTREMITY BILATERAL [facility] CBC WITH PLATELET AND 2021-12-13 20:00:00 [facility] DIFFERENTIAL COMPREHENSIVE METABOLIC 2021-12-13 20:00:00 [facility] PANEL TROPONIN T 2021-12-13 20:00:00 [facility] B NATRIURETIC PEPTIDE 2021-12-13 20:00:00 [facility] PARTIAL THROMBOPLASTIN 2021-12-13 20:00:00 [facility] TIME (PTT) PROTHROMBIN TIME WITH INR 2021-12-13 20:00:00 [facility] ESTIMATED GFR 2021-12-13 20:00:00 [facility] XR CHEST 2 VW 2021-12-13 19:50:53 [facility] ECG ED PRELIMINARY 2021-12-13 19:01:43 Lisha Hills [facility] INTERPRETATION ECG 12-LEAD 2021-12-13 17:56:54 [facility] EXTERNAL PROVIDER RECORDS 2020-12-23 05:01:00 Doctor Unassigned, No [facility] Plan of Care Planned Activity Planned Date Details Comments Source Future Scheduled 2022-10-20 COVID-[address] Test 16:00:28 (#1) [code = Hospital COVID-19 VACCINE (#1)] Future Scheduled 2022-10-20 Pneumococcal [employer] Test 16:00:28 Vaccine: [facility] (0 to 5 Years) and At-Risk Patients (6 to 64 Years) (1 - PCV) [code = Pneumococcal Vaccine: Pediatrics (0 to 5 Years) and At-Risk Patients (6 to 64 Years) (1 - PCV)] Future Scheduled 2022-10-20 Screening for [employer] Test 16:00:28 malignant neoplasm [facility] of cervix (procedure) [code = 601472363] Future Scheduled 2022-10-20 BREAST CANCER [employer] Test 16:00:28 SCREENING [code = Hospital BREAST CANCER SCREENING] Future Scheduled 2022-10-20 COLONOSCOPY [employer] [facility] Test 16:00:28 SCREENING [code = Hospital COLONOSCOPY [...] COVID-19 VACCINE (#1)] Future Scheduled 2022-05-09 Pneumococcal [employer] Test 07:36:46 Vaccine: [facility] (0 to 5 Years) and At-Risk Patients (6 to 64 Years) (1 - PCV) [code = Pneumococcal Vaccine: Pediatrics (0 to 5 Years) and At-Risk Patients (6 to 64 Years) (1 - PCV)] Future Scheduled 2022-05-09 Screening for [employer] Test 07:36:46 malignant neoplasm [facility] of cervix (procedure) [code = 249046893] Future Scheduled 2022-05-09 BREAST CANCER [employer] [facility] Test 07:36:46 SCREENING [code = Hospital BREAST CANCER SCREENING] Future Scheduled 2022-05-09 COLONOSCOPY [employer] Test 07:36:46 SCREENING [code = Hospital COLONOSCOPY [...] versity of Test 00:00:00 (procedure) [code = [facility] dical 504567564] Branch Future Scheduled 2021-02-16 INFLUENZA VACCINE Postponed from Univ ersity of Test 00:00:00 (#1) [code = 04/20/2020 [place] [facility] INFLUENZA VACCINE (Refused) Branch (#1)] Future Scheduled 2014 Screening for University of Test 00:00:00 malignant neoplasm [place] [facility] of lung (procedure) Branch [code = 200606068] Future Scheduled 2009 Screening for occult Uni versity of Test 00:00:00 blood in feces [facility] (procedure) [code = Branch 537715710] Future Scheduled 2009 Stool DNA-based Universi ty of Test 00:00:00 colorectal cancer [facility] rosie screening Branch (procedure) [code = 889750399810446] Future Scheduled 2009 Flexible fiberoptic Univ ersity of Test 00:00:00 sigmoidoscopy [facility] (procedure) [code = Branch 53990476] Future Scheduled 2009 Screening for University of Test 00:00:00 malignant neoplasm [place] [facility] ical of colon (procedure) Branch [code = 347319495] Future Scheduled 2009 Screening for University of Test 00:00:00 malignant neoplasm [place] [facility] ical of colon (procedure) Branch [code = 489856514] Future Scheduled 2009 Zoster Recombinant Unive rsity of Test 00:00:00 Vaccine (SHINGRIX) [place] [facility] ical (1 of 2) [code = Branch Zoster Recombinant Vaccine (SHINGRIX) (1 of 2)] Future Scheduled 2009-06-07 Screening for University of Test 00:00:00 malignant neoplasm [place] [facility] ical of cervix Branch (procedure) [code = 377966806] Future Scheduled 2007-07-25 Screening for University of Test 00:00:00 malignant neoplasm [place] [facility] ical of breast Branch (procedure) [code = 535192436] Future Scheduled 1978 DTaP,Tdap,and Td Univers ity of Test 00:00:00 Vaccines (1 - Tdap) [facility] dical [code = Branch DTaP,Tdap,and Td [...] Type Clinicians Facility Department ID 2021-06-19 Emergency [facility] [id number] Univers 13:07:02 ity of [facility] 2021-06-19 Emergency [facility] [id number] Univers 11:59:00 ity of [facility] 2022-11-01 2022-11-01 Outpatient Reshma BLUE [facility] [id number] Univers 12:15:00 12:15:00 ANDRZEJ ity of [facility] 2022-10-24 2022-10-24 Emergency Ann-Marie ROSEN, [facility] ERT [id number] Univers 20:26:00 23:29:00 AJ villalta [facility] 2022-10-24 2022-10-24 [facility] [id number] Univers 20:26:00 23:29:00 Aj CASTILLO [id number] i ty of [facility] [id number] [place] [id number] [place] [id number] [place] 2022-10-16 2022-10-16 [facility]phone [facility] [id number] Univers 00:00:00 00:00:00 Andrzej HEALTH [id number] it y of [place] [id number] Mikey as [place]?BLEA [phone] [facility] [address] MEDICAL OFFICE [facility] 2022 2022 Telephone [facility] [id number] Univers 00:00:00 00:00:00 Andrzej HEALTH [id number] it y of [place] [id number] Mikey as [place]?BLEA [phone] [facility] [address] MEDICAL OFFICE [facility] 2022-09-13 2022-09-13 Outpatient R HUDSON [facility] [id number] Univers 09:15:00 09:15:00 ANDRZEJ villalta [facility] 2022-09-11 2022-09-11 Outpatient Reshma MONTERO [facility] [id number] Univers 09:00:00 09:50:53 RSOA MARIA villalta [facility] 2022-09-11 2022-09-11 Urgent Rosa Maria Montero [facility] [id number] Univers 09:00:00 09:50:53 Care Unknown, Attending HEALTH [id number] ity of [place] [id number] Mikey as [place]?BLEA [phone] [facility] [address] MEDICAL OFFICE [facility] 2022-09-11 2022-09-11 Telephone [facility] [id number] Univers 00:00:00 00:00:00 Andrzej HEALTH [id number] it y of [place] 4.2.7.2.686 Mikey as [place]?BLEA [id number] [address] OFFICE [facility] 2022-09-07 2022-09-07 [facility]phone [facility] [id number] Univers 00:00:00 00:00:00 [facility] [id number] it y of [place] 4.2.7.2.686 Mikey as [place]?BLEA [phone] [address] OFFICE [facility] 2022-08-10 2022-08-10 [facility]phone [facility] [id number] Univers 00:00:00 00:00:00 [facility] [id number] it y [facility] [id number] Mikey as [place]?BLEA [phone] [address] OFFICE [facility] 2022-08-09 2022-08-09 [facility]patient [facility] [id number] Univers 12:45:00 13:14:08 ANDRZEJ villalta [facility] 2022-08-09 2022-08-09 Office [facility] [id number] Univers 12:45:00 13:00:00 Visit [facility] [id number] it y of [place] 4.2.7.2.686 Mikey as [place]?BLEA [id number] [address] OFFICE [facility] 2022-08-03 2022-08-03 Outpatient [facility] [id number] Univers 12:00:00 12:00:00 ANDRZEJ villalta [facility] 2022-07-25 2022-07-25 [facility] [id number] Univers 00:00:00 00:00:00 [facility] [id number] it y of [place] 4.2.7.2.686 Mikey as [place]?BLEA [id number] [address] OFFICE [facility] 2022-07-04 2022-07-04 Orders Doctor CALDERON [id number] Univers 00:00:00 00:00:00 Only Unassigned, ROLANDO 350.1.13.10 ity of [facility] 4.2.7.2.686 Mikey as [id number] [address] 2022-06-12 2022-06-12 [facility]phone [facility] [id number] Univers 00:00:00 00:00:00 Andrzej HEALTH 350.1.13.10 it y of [place] 4.2.7.2.686 Mikey as [place]?BLEA [phone] [address] MEDICAL OFFICE BUILDING 2022-06-09 2022-06-09 [facility]phone [facility] [id number] Univers 00:00:00 00:00:00 Andrzej HEALTH 350.1.13.10 it y [facility] 4.2.7.2.686 Mikey as [place]?BLEA [phone] [address] MEDICAL OFFICE [facility] 2022-06-08 2022-06-08 [facility] [id number] Univers 00:00:00 00:00:00 Andrzej HEALTH 350.1.13.10 it y of [place] 4.2.7.2.686 Mikey as BRENTON?BLEA [phone] [address] MEDICAL OFFICE [facility] 2022-06-08 2022-06-08 [facility] 1.2.840.114 [id number] Univers 00:00:00 00:00:00 Andrzej HEALTH 350.1.13.10 it y of [place] 4.2.7.2.686 Mikey as BRENTON?BLEA [phone] [address] MEDICAL OFFICE [facility] 2022-06-06 2022-06-06 [facility] 1.2.840.114 [id number] 70 Univers 00:00:00 00:00:00 Andrzej HEALTH 350.1.13.10 it y of [place] 4.2.7.2.686 Mikey as BRENTON?BLEA [phone] [address] MEDICAL OFFICE [facility] 2022-06-06 2022-06-06 [facility]phone [facility] 1.2.703.823 [id number] [id number] Univers 00:00:00 00:00:00 [facility] 350.1.13.10 it y of [place] 4.2.7.2.686 Mikey as BRENTON?BLEA [phone] [address] OFFICE [facility] 2022-06-02 2022-06-02 [facility] 1.2.840.114 [id number] Univers 00:00:00 00:00:00 [facility] 350.1.13.10 it y [facility] 4.2.7.2.686 Mikey as BRENTON?BLEA [phone] [address] 2022-05-10 2022-05-10 [facility] [id number] Univers 14:00:00 14:00:[address] [facility] [place] [place] 2022-02-24 2022-02-24 Patient Jacquie, 1.2.840.1 [id number] Methodi 00:00:00 00:00:00 Outreach Loyda A 91885.1.[address] 3.430.2.7 Hospit a .3.073886 l .8 2022-02-17 2022-02-17 Patient Jacquie, 1.2.840.1 [id number] Methodi 00:00:00 00:00:00 Outreach Loyda A 58256.1.[address] 3.430.2.7 Hospit a .3.191841 l .8 2022-02-07 2022-02-07 Patient Jacquie, 1.2.840.1 [id number] Methodi 00:00:00 00:00:00 Outreach Loyda A 58235.1.[address] 3.430.2.7 Hospit a .3.850236 l .8 2022-02-06 2022-02-06 [facility]phone [facility] 1.2.588.399 2061 1854 Univers 00:00:00 00:00:00 [facility] 350.1.13.10 it y of [place] 4.2.7.2.686 Mikey as BRENTON?BLEA [id number] [address] MEDICAL OFFICE [facility] 2022-02-06 2022-02-06 Patient Jacquie, 1.2.840.1 [id number] Methodi 00:00:00 00:00:00 Outreach Loyda A 99354.1.[address] 3.430.2.7 Hospit a .3.981723 l .8 2022-02-01 2022-02-01 Office [facility] 1.2.840.114 [id number] 21 Univers 15:00:00 15:15:00 Visit [facility] 350.1.13.10 it y [facility] 4.2.7.2.686 Mikey as BRENTON?BLEA [phone] [address] OFFICE [facility] 2022-02-01 2022-02-01 Outpatient Res[facility] [id number] Univers 15:00:00 15:00:[address] [facility] [place] [place] 2022-02-01 2022-02-01 Outpatient [facility] [id number] Univers 15:00:00 14:06:[address] [facility] [place] [place] 2022-02-01 2022-02-01 [facility] 1.2.142.647 [id number] Univers 00:00:00 00:00:00 [facility] 350.1.13.10 it y of [facility] 4.2.7.2.686 Mikey as BRENTON?BLEA [phone] [address] OFFICE [facility] 2022-02-01 2022-02-01 Telephone [facility] 1.2.986.830 [id number] [id number] Univers 00:00:00 00:00:00 [facility] 350.1.13.10 it y of [place] 4.2.7.2.686 Mikey as BRENTON?BLEA [phone] [address] OFFICE [facility] 2022-01-26 2022-01-26 Outpatient [facility] [id number] Univers 13:15:00 13:15:[address] [facility] 2022-01-20 2022-01-20 Patient Jacquie, 1.2.840.1 [id number] Methodi 00:00:00 00:00:00 Outreach Loyda A 26631.1.[address] 3.430.2.7 Hospit a .3.869131 l .8 2022-01-13 2022-01-13 Patient Jacquie, 1.2.840.1 [id number] Methodi 00:00:00 00:00:00 Outreach Loyda A 09148.1.[address] 3.430.2.7 Hospit a .3.362071 l .8 2022-01-09 2022-01-09 Telephone Hudson [facility] 1.2.809.359 [id number] [id number] Univers 00:00:00 00:00:00 [facility] 350.1.13.10 it y of [place] 4.2.7.2.686 Mikey as BRENTON?BLEA [phone] [address] MEDICAL OFFICE BUILDING 2022-01-04 2022-01-04 Orders Doctor KVNG 1.2.840.114 [id number] Univers 00:00:00 00:00:00 Only Unassigned, ROLANDO 350.1.13.10 ity of [facility] 4.2.7.2.686 Mikey as [phone] [address] 2022-01-02 2022-01-02 Patient Jacquie, 1.2.840.1 [id number] Methodi 00:00:00 00:00:00 Outreach Loyda A 45936.1.[address] 3.430.2.7 Hospit a .3.761233 l .8 2021-12-28 2021-12-28 Office Hudson [facility] 1.2.840.114 [id number] 01 Univers 13:00:00 13:15:00 Visit [facility] 350.1.13.10 it y of [facility] 4.2.7.2.686 Mikey as BRENTON?BLEA [phone] [address] MEDICAL OFFICE BUILDING 2021-12-28 2021-12-28 Outpatient R HUDSON [facility] [id number] Univers 13:00:00 13:00:00 ANDRZEJ ittam of [facility] 2021-12-27 2021-12-27 Telephone Hudson [facility] 1.2.852.515 [id number] 9226 Univers 00:00:00 00:00:00 Adnrzej [facility] 350.1.13.10 it y of [place] 4.2.7.2.686 Mikey as BRENTON?BLEA [phone] [address] MEDICAL OFFICE BUILDING 2021-12-27 2021-12-27 Patient Jacquie, 1.2.840.1 [id number] Methodi 00:00:00 00:00:00 Outreach Loyda A 57548.1.[address] 3.430.2.7 Hospit a .3.142184 l .8 2021-12-26 2021-12-26 Patient Jacquie, 1.2.840.1 [id number] Methodi 00:00:00 00:00:00 Outreach Lodya A 88839.1.[address] 3.430.2.7 Hospit a .3.586353 l .8 2021-12-22 2021-12-22 Orders Doctor KVNG 1.2.840.114 [id number] 48 Univers 00:00:00 00:00:00 Only Unassigned, ROLANDO 350.1.13.10 ity of [facility] 4.2.7.2.686 Mikey as [phone] [address] 2021-12-13 2021-12-21 [facility] [place] 1.2.840.1 10 [id number] Methodi 12:23:00 13:11:00 Encounter Jaguar Mendiola 84194.1.[address] [facility]olin[facility] 3.430.2.7 [facility] .3.684375 l .8 2021-12-21 2021-12-21 Telephone [facility] 1.2.430.370 [id number] [id number] Univers 00:00:00 00:00:00 Andrzej [facility] 350.1.13.10 it y of [facility] 4.2.7.2.686 Mikey as BRENTON?BLEA [phone] La jaskaran [address] OFFICE [facility] 2021-12-21 2021-12-21 Telephone [facility] 1.2.696.597 [id number] 6528 Univers 00:00:00 00:00:00 [facility] 350.1.13.10 it y of [place] 4.2.7.2.686 Mikey as BRENTON?BLEA [phone] [address] OFFICE [facility] 2021-12-21 2021-12-21 Telephone [facility] 1.2.553.043 [id number] 9528 Univers 00:00:00 00:00:00 [facility] 350.1.13.10 it y [facility] 4.2.7.2.686 Mikey as BRENTON?BLEA [phone] [address] 2021-12-21 2021-12-21 Nurse Only Melvin, 1.2.840.1 [id number] Methodi 00:00:00 00:00:[address] 3.430.2.7 Hospit a .3.430222 l .8 2021-12-21 2021-12-21 Patient Varghese Bateman 1.2.840.1 [id number] Methodi 00:00:00 00:00:[address] 3.430.2.7 Hospit a .3.191561 l .8 2021-12-21 2021-12-21 Travel 1.2.840.1 1.2.604.770 7117 [id number] Methodi 00:00:00 00:00:[address] 3.430.2.7 0.2.7.3.698 Ho spita .3.498043 084.8 l .8 2021-12-20 2021-12-20 Telephone [facility] 1.2.932.240 [id number] 9423 Univers 00:00:00 00:00:00 Andrzej [facility] 350.1.13.10 it y of [place] 4.2.7.2.686 Mikey as BRENTON?BLEA [phone] La jaskaran SIMMONS [address] [place] [address] MEDICAL OFFICE BUILDING 2021-11-09 2021-11-09 Outpatient Reshma MURRELL [facility] [id number] Univers 15:20:00 15:20:00 MONTSERRAT villalta o f [facility] 2021-11-09 2021-11-09 Orders Doctor CALDERON 1.2.840.114 [id number] Univers 00:00:00 00:00:00 Only Unassigned, ROLANDO 350.1.13.10 [facility] 4.2.7.2.686 Mikey as [phone] [address] 2021-11-03 2021-11-03 Outpatient Reshma BLUE [facility] [id number] Univers 13:15:00 13:15:00 ANDRZEJ tam [facility] 2021-11-02 2021-11-02 Outpatient Reshma BLUE [facility] [id number] Univers 12:00:00 12:00:[address] [facility] 2021-10-23 2021-10-23 Emergency [facility] [id number] Univers 10:57:00 14:51:00 NIKOS villalta [facility] 2021-10-23 2021-10-23 Emergency [facility] 1.2.915.369 [id number] Univers 10:57:00 14:51:00 Nikos CASTILLO 350.1.13.10 i ty [facility] 4.2.7.2.686 [facility] [phone] [address] 2021-10-16 2021-10-16 Emergency X [facility] [id number] Univers 08:57:00 11:17:00 YULI villalta [facility] 2021-10-16 2021-10-16 Emergency [facility] 1.2.840.114 91 [id number] Univers 08:57:00 11:17:00 Yuli CASTILLO 350.1.13.10 ity [facility] 4.2.7.2.686 [place] [phone] [address] 2021-10-16 2021-10-16 Orders Doctor KVNG 1.2.840.114 [id number] Univers 00:00:00 00:00:00 Only Unassigned, ROLANDO 350.1.13.10 ity of [facility] 4.2.7.2.686 Mikey as [phone] [address] 2021-10-11 2021-10-11 Outpatient R HUDSON [facility] [id number] Univers 10:15:00 10:43:38 ANDRZEJ mendeztam [facility] 2021-09-30 2021-09-30 Telephone [facility] 1.2.756.485 [id number] Univers 00:00:00 00:00:00 Rives HEALTH 350.1.13.10 it y of [place] 4.2.7.2.686 Mikey as BRENTON?BLEA [phone] [address] OFFICE [facility] 2021-09-20 2021-09-20 Telephone [facility] 1.2.540.081 [id number] 8500 Univers 00:00:00 00:00:00 Andrzej HEALTH 350.1.13.10 it y of [place] 4.2.7.2.686 Mikey as BRENTON?BLEA [id number] [address] OFFICE [facility] 2021-08-04 2021-08-04 Penrose [facility] 1.2.559.876 [id number] 4545 Univers 00:00:00 00:00:00 Andrzej HEALTH 350.1.13.10 it y of [place] 4.2.7.2.686 Mikey as BRENTON?BLEA [phone] [address] OFFICE [facility] 2021-08-03 2021-08-03 [facility] 1.2.840.114 [id number] Univers 13:09:41 23:59:00 Encounter Andrzej HEALTH 350.1.13.10 ity of [place] 4.2.7.2.686 Mikey as BRENTON?BLEA [phone] [facility] [address] MEDICAL OFFICE [facility] 2021-08-03 2021-08-03 [facility] [id number] Univers 12:00:00 13:12:07 ANDRZEJ villalta [facility] 2021-08-03 2021-08-03 Outpatient R HUDSON [facility] [id number] Univers 13:09:41 13:09:41 ANDRZEJ ity [facility] 2021-08-03 2021-08-03 Office [facility] 1.2.840.114 [id number] Univers 12:00:00 12:15:00 Visit [facility] 350.1.13.10 it y of [place] 4.2.7.2.686 Mikey as BRENTON?BLEA [phone] [address] MEDICAL OFFICE [facility] 2021-08-03 2021-08-03 Telephone [facility] 1.2.193.494 [id number] [id number] Univers 00:00:00 00:00:00 [facility] 350.1.13.10 it y of [facility] 4.2.7.2.686 Mikey as BRENTON?BLEA [phone] [address] OFFICE [facility] 2021-08-01 2021-08-01 Orders Doctor KVNG 1.2.840.114 [id number] Univers 00:00:00 00:00:00 Only Unassigned, ROLANDO 350.1.13.10 ity of [facility] 4.2.7.2.686 Mikey as [phone] [address] 2021-07-12 2021-07-12 [facility]phone [facility] 1.2.010.583 [id number] 1566 Univers 00:00:00 00:00:00 [facility] 350.1.13.10 it y of [place] 4.2.7.2.686 Mikey as BRENTON?BLEA [phone] [address] OFFICE [facility] 2021-06-28 2021-06-28 Telephone [facility] 1.2.517.003 [id number] [id number] Univers 00:00:00 00:00:00 [facility] 350.1.13.10 it y of [facility] 4.2.7.2.686 Mikey as BRENTON?BLEA [phone] [address] MEDICAL OFFICE [facility] 2021-06-24 2021-06-24 Refill [facility] 1.2.840.114 [id number] Univers 00:00:00 00:00:00 Andrzej HEALTH 350.1.13.10 it y of [place] 4.2.7.2.686 Mikey as BRENTON?BLEA [phone] La jaskaran SIMMONS [address] [place] [address] MEDICAL OFFICE BUILDING 2021-05-04 2021-05-04 Office Hudson [facility] 1.2.840.114 [id number] Univers 12:08:03 12:23:03 Visit Andrzej Health 350.1.13.10 it y of [place] 4.2.7.2.686 Mikey as Brenton?Blea [phone] [address] Office Building 2021-05-04 2021-05-04 Outpatient R HUDSON [facility] [id number] [facility] 12:00:00 12:00:00 ANDRZEJ ity [facility] 2021-05-04 2021-05-04 Orders Doctor KVNG 1.2.840.114 [id number] Univers 00:00:00 00:00:00 Only Unassigned, ROLANDO 350.1.13.10 ity of [place] [facility] 4.2.7.2.686 Mikey as [phone] [address] 2021-05-04 2021-05-04 Orders Doctor KVNG 1.2.840.114 [id number] 02 Univers 00:00:00 00:00:00 Only Unassigned, ROLANDO 350.1.13.10 ity of [place] [facility] 4.2.7.2.686 Mikey as [phone] [address] 2021-02-02 2021-02-02 Outpatient [facility] 288 [id number] 504 [place] 00:00:00 00:00:[address] NADIM [address] 2021-02-01 2021-02-01 [facility]ill [facility] 1.2.840.114 [id number] Univers 00:00:00 00:00:00 Andrzej Health 350.1.13.10 it y of [place] 4.2.7.2.686 Mikey as Professio [phone] [address] Office Building One 2021-01-27 2021-01-27 Outpatient [facility] [id number] [address] [place] [address] 00:00:00 00:00:[address] NADIM [address] 2021-01-11 2021-01-11 Office [facility] 1.2.840.114 [id number] Univers 09:28:35 09:43:35 Visit Andrzej [facility] 350.1.13.10 it y of [place] 4.2.7.2.686 Mikey as Professio [phone] La dical [facility] 044 [facility] 2021-01-11 2021-01-11 Outpatient Reshma BLUE [facility] [id number] Univers 09:30:00 09:30:00 ANDRZEJ villalta [facility] 2020-12-23 2020-12-23 Orders Doctor KVNG 1.2.840.114 [id number] 00:00:00 00:00:00 Only Unassigned, ROLANDO 350.1.13.10 [place] [facility] 4.2.7.2.686 [id number] [facility] 2020-12-23 2020-12-23 Orders Doctor KVNG 1.2.840.114 [id number] [facility] 00:00:00 00:00:00 Only Unassigned, ROLANDO 350.1.13.10 ity of [place] 4.2.7.2.686 Mikey as [phone] [address] 2020-12-06 2020-12-06 Outpatient Reshma BLUE [facility] [id number] Univers 10:15:00 10:15:[address] [facility] [place] [place] 2020-12-04 2020-12-06 Inpatient YASIR, [facility] [id number] 73 [place] 00:00:00 00:00:00 JENNIFER [address] 2020-12-05 2020-12-05 Telephone [facility] 1.2.081.559 [id number] 3160 00:00:00 00:00:00 [facility] 350.1.13.10 [place] 4.2.7.2.686 Professio [phone] nal 044 [facility] 2020-12-05 2020-12-05 Telephone [facility] 1.2.610.041 [id number] 3160 Univers 00:00:00 00:00:00 Andrzej Health 350.1.13.10 it y of [place] 4.2.7.2.686 Mikey as Professio [phone] [address] Office Building One 2020-12-02 2020-12-02 Emergency [facility] 1.2.335.125 [id number] 6104 10:56:00 12:00:00 Lori R [place] 350.1.13.10 [place] 4.2.7.2.686 [place] [phone] [facility] 2020-12-02 2020-12-02 Emergency [facility] 1.2.609.299 [id number] 6104 [facility] 10:56:00 12:00:00 Lori R [place] 350.1.13.10 i ty of [place] 4.2.7.2.686 [place] [phone] [address] 2020-12-02 2020-12-02 Urgent Provider, [facility] 1.2.971.296 [id number] 5403 07:50:30 09:40:15 Care [facility] 350.1.13.10 Care [place] 4.2.7.2.686 Professio [phone] [place] [address] Office Building One 2020-12-02 2020-12-02 Urgent Provider, [facility] 1.2.840.114 [id number] [facility] 07:50:30 09:40:15 Care Sarah, [facility] 350.1.13.10 ity of [place] 4.2.7.2.686 Mikey as Professio [phone] [address] Office Building One 2020-12-02 2020-12-02 Outpatient R SARAH [facility] [id number] Univers 09:20:00 09:20:00 SILVANO ity [facility] 2020-12-02 2020-12-02 Telephone Hudson [facility] 1.2.082.377 [id number] 1522 00:00:00 00:00:00 Andrzej Health 350.1.13.10 [place] 4.2.7.2.686 Professio [phone] [place] [address] Office Building One 2020-12-02 2020-12-02 Telephone Hudson [facility] 1.2.517.189 6250 1522 Univers 00:00:00 00:00:00 [facility] 350.1.13.10 it y of [place] 4.2.7.2.686 Mikey as Professio [phone] [address] One 2020-11-30 2020-11-30 [facility]phone [facility] 1.2.547.992 [id number] 1871 00:00:00 00:00:00 [facility] 350.1.13.10 [place] 4.2.7.2.686 Professio [phone] [address] One 2020-11-30 2020-11-30 Telephone [facility] 1.2.441.719 [id number] 1871 Univers 00:00:00 00:00:00 [facility] 350.1.13.10 it y of [place] 4.2.7.2.686 Mikey as Professio [phone] [address] 2020-11-26 2020-11-27 Emergency [facility] 1.2.840.114 83 [id number] 21:15:00 00:04:00 Ernestina Reyeston 350.1.13.10 [place] 4.2.7.2.686 [place] [phone] [facility] 2020-11-26 2020-11-27 Emergency [facility] 1.2.840.114 [id number] [facility] 21:15:00 00:04:00 Honorioeva Reyeston 350.1.13.10 ity of [place] 4.2.7.2.686 [facility] [phone] [address] 2020-11-27 2020-11-27 Nurse Hemalatha CALDERON 1.2.840.114 [id number] 00:00:00 00:00:00 Triage ROLANDO Ring 350.1.13.10 [facility] 4.2.7.2.686 [id number] 019 2020-11-27 2020-11-27 Nurse Hemalatha CALDERON 1.2.840.114 [id number] 33 [facility] 00:00:00 00:00:00 Triage ROLANDO Ring 350.1.13.10 ity of [facility] 4.2.7.2.686 Mikey as [phone] [address] 2020-09-22 2020-09-22 Telephone [facility] 1.2.814.847 2612 8553 00:00:00 00:00:00 [facility] 350.1.13.10 [place] 4.2.7.2.686 Professio [phone] [place] [address] Office Building One 2020-09-22 2020-09-22 Telephone [facility] 1.2.079.155 [id number] 8553 Univers 00:00:00 00:00:00 Andrzej Health 350.1.13.10 it y of [place] 4.2.7.2.686 Mikey as Professio [phone] [address] Office [facility] One 2020-09-01 2020-09-01 Office [facility] 1.2.840.114 [id number] 12:28:02 12:43:02 Visit [facility] 350.1.13.10 [place] 4.2.7.2.686 Professio [phone] [place] [address] Office Building One 2020-09-01 2020-09-01 Office [facility] 1.2.840.114 [id number] 84 Univers 12:28:02 12:43:02 Visit [facility] 350.1.13.10 it y of [place] 4.2.7.2.686 Mikey as Professio [phone] [address] Office Building One 2020-09-01 2020-09-01 Outpatient R HUDSON [facility] [id number] Univers 12:00:00 12:00:00 ANDRZEJ villalta [facility] 2020-08-23 2020-08-23 Telephone [facility] 1.2.545.482 [id number] 5775 Univers 00:00:00 00:00:00 [facility] 350.1.13.10 it y of [place] 4.2.7.2.686 Mikey as Professio [phone] [address] Office Building One 2020-08-19 2020-08-19 Orders Doctor KVNG 1.2.840.114 [id number] Univers 00:00:00 00:00:00 Only Unassigned, ROLANDO 350.1.13.10 ity of [place] [facility] 4.2.7.2.686 Mikey as [phone] [address] 2020-07-29 2020-07-29 [facility] 1.2.247.906 8725 5827 Univers 00:00:00 00:00:00 Andrzej Health 350.1.13.10 it y of [place] 4.2.7.2.686 Mikey as Professio [phone] Me dical nal [address] Office [facility] One 2020-07-28 2020-07-[address] [facility] 1.2.840.114 [id number] 69549 Univers 13:51:50 23:59:00 Encounter Consuelo Rod Gruvie 350.1.13.10 ity of Surgical 4.2.7.2.686 Mikye as Specialti [phone] Me dical es 809 [facility] 2020-07-28 2020-07-28 Outpatient R [facility] [id number] Univers 13:51:50 23:59:00 CONSUELO ity [facility] 2020-07-28 2020-07-[address] [facility] 1.2.465.888 [id number] 7408 Univers 13:19:49 14:14:10 Visit Consuelo Rod Gruvie 350.1.13.10 it y of Surgical 4.2.7.2.686 Mikey as Specialti [phone] Me dical es 198 [facility] 2020-07-27 2020-07-27 Orders Doctor KVNG 1.2.840.114 [id number] Univers 00:00:00 00:00:00 Only Unassigned, ROLANDO 350.1.13.10 ity of [place] [facility] 4.2.7.2.686 Mikey as [phone] [address] 2020-07-21 2020-07-21 [facility] 1.2.840.114 [id number] Univers 14:30:00 23:59:00 Encounter Andrzej Castillo 350.1.13.10 ity of [place] 4.2.7.2.686 [facility] [phone] [facility] [address] 2020-07-21 2020-07-21 [facility] 1.2.840.114 [id number] Univers 13:10:30 13:40:30 Visit [facility] [id number] it y of [place] 4.2.7.2.686 Mikey as Professio [phone] [facility] [address] Office [facility] 2020-07-21 2020-07-21 [facility] [id number] Univers 13:30:00 13:30:00 ANDRZEJ ittam [facility] 2020-07-09 2020-07-09 [facility]phone [facility] [id number] Univers 00:00:00 00:00:00 [facility] [id number] it y of [place] 4.2.7.2.686 Mikey as Professio [phone] [address] 2020-07-05 2020-07-05 Outpatient R HUDSON [facility] [id number] Univers 14:30:00 14:30:00 ANDRZEJ ittam [facility] 2020-07-05 2020-07-05 [facility]phone [facility] [id number] Univers 00:00:00 00:00:00 [facility] 350.1.13.10 it y of [place] 4.2.7.2.686 Mikey as Professio [phone] [address] Office [facility] 2020-06-29 2020-07-04 Inpatient AKINS, [place] [facility] [id number] [place] 00:00:00 00:00:[address] 2020-06-30 2020-06-30 Orders Doctor [facility] 1.2.840.114 [id number] Univers 00:00:00 00:00:00 Only Unassigned, ROLANDO 350.1.13.10 ity of [place] [facility] 4.2.7.2.686 Mikey as [phone] [facility] [address] 2020-06-22 2020-06-22 Outpatient Reshma VÁZQUEZ [facility] [id number] Univers 10:00:00 10:00:00 SENDIL ittam of [facility] 2020-06-22 2020-06-22 [facility]phone [facility] 1.2.385.115 [id number] Univers 00:00:00 00:00:00 [facility] 350.1.13.10 it y of [place] 4.2.7.2.686 Mikey as Professio [phone] [address] Office [facility] 2020-06-22 2020-06-22 [facility]phone [facility] 1.2.774.251 [id number] Univers 00:00:00 00:00:00 [facility] 350.1.13.10 it y of [place] 4.2.7.2.686 Mikey as Professio [phone] [address] Office [facility] 2020-06-21 2020-06-21 [facility]phone [facility] [id number] Univers 00:00:00 00:00:00 [facility] 350.1.13.10 it y of [place] 4.2.7.2.686 Mikey as Professio [phone] [facility] n[facility] [address] [place] [address] Office [facility] 2020-06-17 2020-06-17 [facility] 1.2.840.114 [id number] Univers 14:05:17 14:53:39 Visit [facility] [id number] it y of [place] [id number] Mikey as Professio [phone] [address] Office Building One 2020-06-17 2020-06-17 Outpatient R HUDSON [facility] [id number] Univers 14:30:00 14:30:00 ANDRZEJ villalta [facility] 2020-06-14 2020-06-14 [facility] [id number] Univers 00:00:00 00:00:00 [facility] [id number] [place] of [place] [id number] Mikey as Professio [phone] [address] Office Building One 2020-06-01 2020-06-01 [facility] [id number] Univers 00:00:00 00:00:00 Andrzej [facility] [id number] it [place] of [place] [id number] Mikey as Professio [phone] [address] One 2020-03-17 2020-03-17 [facility] [id number] Univers 00:00:00 00:00:00 Andrzej Castillo [id number] [place] [phone] [address] 2020-02-26 2020-02-26 [facility] [id number] Univers 12:00:00 12:00:00 ANDRZEJ villalta [facility] 2020-02-26 2020-02-26 Office [facility] [id number] Univers 10:19:41 10:34:41 Visit Andrzej Castillo [id number] [place] [phone] [address] 2020-02-26 2020-02-26 [facility] [id number] Univers 10:15:00 10:15:00 ANDRZEJ villalta [facility] 2020-02-23 2020-02-23 [facility] [id number] Univers 00:00:00 00:00:00 [facility] [id number] it y of [place] [id number] Mikey as Professio [phone] [address] One 2019-11-21 2019-11-21 [facility] [id number] Univers 00:00:00 00:00:00 Andrzej [facility] [id number] it y of [place] [id number] Mikey as Professio [phone] [address] One 2019-03-19 2019-03-19 Orders Doctor [facility] [id number] Univers 00:00:00 00:00:00 Only Unassigned, ROLANDO [id number] ity of [facility] 4.2.7.2.686 Mikey as [phone] [address] Results Test Description Test Time Test [...] 3267) hazy Lab Interpretation (test code = 65853-5) [facility]normal [facility]IFIC [id number] 18:42:00 Test Item Value Reference Range Interpretation Comments POCT U SP GRAV (test code = 1.015 mg/dl 1.005-1.025 5) POCT PH U (test code = 3254) 5 mg/dl 5-8 POCT U LEUK EST (test code = negative Negative - Negative 3) POCT U NIT (test code = negative [...] 3267) Lab Interpretation (test Abnormal code = 81927-3) [facility] [id number] 04:06:00 Test Item Value Reference Range Interpretation Comments Urine culture (test SEE COMMENT Bacteriu chantel screen code = 4264802) negative. [facility] [id number] 04:06:00 Test Item Value Reference Range Interpretation Comments Urine culture (test SEE COMMENT Bacteriu chantel screen code = 2323210) negative. [facility] [Presence] in Respiratory specimen by TALIA with probe [id number] 08:02:04 Test Item Value Reference Range Interpretation Comments SARS-CoV-2 (COVID-19) RNA Not detected [Presence] in Respiratory specimen by TALIA with probe detection (test code = 67601-0) Whether patient is employed in a Unknown healthcare setting (test code = 44275-9) Whether the patient has symptoms Unknown related to condition of interest (test code = 89159-0) Whether the patient was Unknown hospitalized for condition of interest (test code = 09404-0) Whether the patient was admitted Unknown to intensive care unit (ICU) for condition of interest (test code = 00484-5) Whether patient resides in a Unknown congregate care setting (test code = 33144-3) status (test code = Unknown 80269-4) Date and time of symptom onset Unknown (test code = 55759-2) [facility] 12 [id number] 03:40:47 Test Item Value Reference Range Interpretation Comments Ventricular rate (test code = 253) Atrial rate (test code = 255) KS interval (test code = 266) QRSD interval [...] present-Vent. rate has decreased BY 3 BPM- [facility] 12 [id number] 03:40:47 Test Item Value Reference Range Interpretation Comments Ventricular rate (test 69 code = 253) Atrial rate (test code 69 = 255) KS interval (test code 132 = 266) QRSD [...] present-Vent. rate has decreased BY 3 BPM- [facility] ED Preliminary Interpretation - Not an [id number] 19:01:43 Test Item Value Reference Range Interpretation Comments FLY (test code = FLY) Lisha Hills MD 12/17/2021 1:07 [facility] [place] [place] ED Preliminary Interpretation - Not an OrderPerformed by: Lisha Hills MDAuthorized by: Lisha Hills MD ECG reviewed by ED Physician in the absence of a bedspread cutter: yes Interpretation: Interpretation: abnormal Rate: ECG rate: 69 ECG rate assessment: normal Rhythm: Rhythm: paced Pacing: Type of pacing: AtrialEctopy: Ectopy: none QRS: QRS axis: Normal QRS intervals: NormalConduction: Conduction: normal ST segments: ST segments: NormalT waves: T waves: normal Lab Interpretation Abnormal (test code = 61622-7) [facility] ED Preliminary Interpretation - Not an [id number] 19:01:43 Test Item Value Reference Range Interpretation Comments FLY (test code = FLY) Lisha Hills MD 12/17/2021 1:07 [facility] [place] [place] ED Preliminary Interpretation - Not an OrderPerformed by: Lisha Hills MDAuthorized by: Lisha Hills MD ECG reviewed by ED Physician in the absence of a bedspread cutter: yes Interpretation: Interpretation: abnormal Rate: ECG rate: 69 ECG rate assessment: normal Rhythm: Rhythm: paced Pacing: Type of pacing: AtrialEctopy: Ectopy: none QRS: QRS axis: Normal QRS intervals: NormalConduction: Conduction: normal ST segments: ST segments: NormalT waves: T waves: normal Lab Interpretation Abnormal (test code = 00469-8) [facility] (C[facility]-19) RNA [Presence] in Respiratory specimen by TALIA with probe [id number] 09:35:29 Test Item Value Reference Range Interpretation Comments SARS-CoV-2 (COVID-19) RNA Not detected Not-Detected [Presence] in Respiratory specimen by TALIA with probe detection (test code = 63339-5) [facility] (COVID-19) RNA [Presence] in Respiratory specimen by TALIA with probe [id number] 23:17:05 Test Item Value Reference Range Interpretation Comments SARS-CoV-2 (COVID-19) RNA Not detected Not-Detected [Presence] in Respiratory specimen by TALIA with probe detection (test code = 80281-6) [facility]
--- NOTE | 2022-10-28 18:10 | RAD REPORT ---
EXAM DESCRIPTION: RAD - Chest Single View - 10/28/2022 5:52 pm CLINICAL HISTORY: DYSPNEA COMPARISON: Chest Single View dated 10/22/2022; Chest Single View dated 05/31/2022; Chest Single View dated 12/08/2021; Chest Single View dated 11/10/2021; Abdomen Pelvis Wo Contrast dated 12/08/2021 FINDINGS: Lines: None. Lungs: Mild interstitial prominence bilaterally which is similar. Underpenetration at the left lung b ase. Pleural: No significant pleural effusions or pneumothorax. Cardiac: Marked cardiomegaly. Pacemaker. Mediastinum: Within normal limits. Bones: No acute fractures. Other: Surgical clips in the right axilla. IMPRESSION: Interstitial prominence that could reflect edema, either acute or chronic. No definite c onsolidative airspace disease to suggest pneumonia. Underpenetration limits evaluation of the left bhupendra ng base.
[2022-10-28] MEDS ORDERED: NITROGLYCERIN 1 GM PKT TD ONE (18:21)
[2022-10-28] MEDS ORDERED: FUROSEMIDE 40 MG/4 ML VIAL ONE (18:21)
[2022-10-28 20:41] LABS: Absolute Lymphocytes (CBC) 0.6 K/uL (0.7-4.9); Hematocrit 37.2 % (36.0-45.0); Lymphocytes % 12.7 % (15.3-44.8); MCV 83.3 fL (80-100); MPV 8.9 fL (7.6-11.3); RBC Red Blood Cell Count 4.46 M/uL (3.86-4.86)
[2022-10-28 21:04] LABS: Albumin 3.6 g/dL (3.4-5.0); Bilirubin Total 1.2 mg/dL (0.2-1.0); Magnesium 2.9 mg/dL (1.6-2.4); Potassium 3.7 mmol/L (3.5-5.1); Protein, Total 7.6 g/dL (6.4-8.2)
--- NOTE | 2022-10-28 21:13 | RAD REPORT ---
EXAM DESCRIPTION: CTChest Abd Pelvis Wo Con - 10/28/2022 8:57 pm CLINICAL HISTORY: Abdominal distention;Congestion;Cough;Dyspnea COMPARISON: THORAX W CONTRAST dated 12/25/2013; CTANGIO CHEST FOR PE dated 11/02/2007; RAD THERAPY FLD PLACECHEST dated 08/30/2007 TECHNIQUE: CT of the chest, abdomen, and pelvis was performed. All CT scans are performed using dose optimization technique as appropriate and may include automated exposure control or mA/KV adjustment according to patient size. FINDINGS: Thorax: Chest Wall: No abnormal mass left upper chest wall pacemaker. Bilateral breast prostheses. Surgical c lips in the right axilla. Lungs: No acute abnormality. Mild pulmonary fibrotic changes in the right lung noted which may be rel ated to prior radiation. Pleura: Small right pleural effusion. Vickie/Mediastinum: No lymphadenopathy. Aorta/Pulmonary Arteries: Unremarkable Heart: Cardiomegaly including multi-vessel coronary artery disease. Abdomen/Pelvis: Liver: Generalized hyperdensity of the liver with counseled unit of the liver parenchyma approximatel y 80. Biliary: Cholecystectomy Stomach: No significant focal abnormality. Duodenum: No significant focal abnormality. Pancreas: No significant abnormality. Spleen: No significant abnormality. Adrenal: No suspicious lesions. Kidney/ureter: No hydronephrosis. 2 mm stone in lower pole right kidney. Retroperitoneum: No retroperitoneal adenopathy. Vascular: No aneurysm. Atherosclerosis . Bowel: No significant focal abnormality. Peritoneum: Small volume of abdominopelvic ascites. Bladder: Grossly unremarkable. Reproductive: No adnexal masses. Bones: No acute fracture. Other: n/a IMPRESSION: 1. Small right pleural effusion but otherwise no acute process identified within the aydin st. Severe cardiomegaly. 2. Anasarca including small volume of ascites, body wall edema, and small right pleural effusion. 3. Diffuse high attenuation of the liver could reflect long-term amiodarone usage, iron deposition, o r other less common causes.
[2022-10-28] MEDS ORDERED: CEFTRIAXONE 1000 MG/VIAL ONE (21:33)
[2022-10-28] MEDS ORDERED: FAMOTIDINE 20 MG/2 ML VIAL IV ONE (21:33)
[2022-10-28] MEDS ORDERED: METHYLPREDNISOLONE 125 MG INJ ONE (21:33)
[2022-10-28] MEDS ORDERED: LEVALBUTEROL 1.25 MG/3 ML NEB ONE (21:33)
[2022-10-28] MEDS ORDERED: IPRATROPIUM BROM 0.5MG/2.5ML ONE (21:33)
[2022-10-28] MEDS ORDERED: HEPARIN 5000 UNIT/ML 1 ML VIAL ONE (22:06)
[2022-10-28] MEDS ORDERED: HEPARIN/D5W 25,000 UNIT/500 ML BAG IV ONE (22:06)
[2022-10-28] MEDS ORDERED: LORazepam 2 MG/ML VIAL ONE (23:18)
[2022-10-29 03:59] VITALS: TEMP 97.6
[2022-10-29 04:07] VITALS: BP 111/65; O2SAT 97
--- NOTE | 2022-10-30 13:06 | EKG ---
Test Date: 2022-10-28 Test Time: 17:36:29 Digital Music Instructor: JUDE MEASUREMENT RESULTS: Intervals: Rate: 60 NH: 144 QRSD: 186 QT: 476 QTc: 476 Seminary: P: NH: 144 QRS: -60 T: -58 INTERPRETIVE STATEMENTS: AV sequential or dual chamber electronic pacemaker Compared to ECG 10/22/2022 06:05:43 Ventricular-paced complex(es) or rhythm no longer present Electronically Signed On 10-30-22 13:03:19 CDT by Adam Bernard
--- NOTE | 2022-11-10 16:23 | ER ---
Nurse's Notes [facility] Name: Lise Loera Age: 62 yrs Sex: Female : 1960 Arrival Date: 10/28/2022 Time: 15:28 Bed 4 Private MD: Diagnosis: Chest pain, unspecified;Dyspnea;Presence of cardiac pacemaker;Unspecified kidney failure;Pleural effusion, not elsewhere classified Presentation: 10/28 15:28 Chief complaint: EMS states: "pt has chest pain and SOB. She went on [employer] last night mb9 and based on her symptoms she says she is going to CHF. Pt is refusing IV and any treatment. Pt requests to be admitted and transferred to [facility] [place] [facility].". Coronavirus screen:. Coronavirus screen: Vaccine status: Patient reports being unvaccinated. Ebola Screen: No symptoms or risks identified at this time. Initial Sepsis Screen: Does the patient meet any 2 criteria? No. Patient's initial sepsis screen is negative. Does the patient have a suspected source of infection? No. Patient's initial sepsis screen is negative. Risk Assessment: Do you want to hurt yourself or someone else? Patient reports no desire to harm self or others. Onset of symptoms was October 28, 2022. 15:28 Method Of Arrival: EMS: [facility] mb9 15:28 Acuity: ESTRELLITA 3 mb9 Historical: - Allergies: 15:30 Codeine; mb9 15:30 Eliquis; mb9 15:30 PENICILLINS; mb9 15:30 Tylenol; mb9 15:30 Sulfa (Sulfonamide Antibiotics); mb9 - Home Meds: 15:30 Entresto 49-51 mg Oral tab [Active]; amiodarone 100 mg Oral tab 1 tab 2 times per day mb9 [Active]; Aspirin EC Oral [Active]; Lasix 20 mg Oral tab 60 mg in am, 40 mg in pm [Active]; potassium chloride 10 mEq Oral cpER 1 cap once daily [Active]; Xanax 2 mg Oral tab 1 tab 3 times per day [Active]; - PMHx: 15:30 ADD/ADHD; Anxiety; Atrial Fib; Pacemaker; CAD; cancer - skin; Cancer, Breast; CHF; mb9 Hypertension; Myocardial infarction; - PSHx: 15:30 Pacemaker/Defib; mb9 - Immunization history:: Adult Immunizations not up to date. - Family history:: not pertinent. - Social history:: Smoking status: Patient/guardian denies using tobacco. Screenin:30 [facility] ED Fall Risk Assessment (Adult) History of falling in the last 3 months, ld1 including since admission No falls in past 3 months (0 pts). Abuse screen: Denies threats or abuse. Denies injuries from another. Nutritional screening: No deficits noted. Tuberculosis screening: No symptoms or risk factors identified. 18:52 [facility] ED Fall Risk Assessment (Adult) History of falling in the last 3 months, ko1 including since admission No falls in past 3 months (0 pts) Confusion or Disorientation No (0 pts) Intoxicated or Sedated No (0 pts) Impaired Gait No (0 pts) Mobility Assist Device Used No (0 pt) Altered Elimination No (0 pt) Score/Fall Risk Level 0 - 2 = Low Risk Oriented to surroundings, Maintained a safe environment, Educated pt \\T\\ family on fall prevention, incl call for assistance when getting out of bed, Assessed \\T\\ reinforced patient's understanding of fall precautions, Provided non-skid footwear, Hourly rounding (assess needs \\T\\ fall precautionary measures) done, Used ambulatory aids as needed (educated on \\T\\ assisted with), Used gait belt as appropriate. Abuse screen: Denies threats or abuse. Denies injuries from another. Nutritional screening: No deficits noted. Tuberculosis screening: No symptoms or risk factors identified. Assessment: 16:00 Reassessment: See triage assessment. ld1 16:30 General: Appears in no apparent distress. uncomfortable, Behavior is cooperative, ld1 anxious. Pain: Denies pain. 16:30 Neuro: Level of Consciousness is awake, alert, obeys commands, Oriented to person, ld1 place, time, situation, Appropriate for age. Cardiovascular: Capillary refill < 3 seconds Patient's skin is warm and dry. Rhythm is Respiratory: Airway is patent Respiratory effort is even, unlabored, Parent/caregiver reports the patient having shortness of breath on exertion. GI: Abdomen is round distended. : No signs and/or symptoms were reported regarding the genitourinary system. EENT: No signs and/or symptoms were reported regarding the EENT system. Derm: No signs and/or symptoms reported regarding the dermatologic system. Musculoskeletal: No signs and/or symptoms reported regarding the musculoskeletal system. 20:00 Pain: Denies pain. Neuro: Level of Consciousness is awake, alert, obeys commands, mb9 Oriented to person, place, time, situation, Appropriate for age. Cardiovascular: Rhythm is regular. Respiratory: Reports shortness of breath cough that is Airway is patent Respiratory effort is even, unlabored. GI: Abdomen is round distended. Derm: Skin is pale. 22:25 Reassessment: No changes from previously documented assessment. Patient and/or family mb9 updated on plan of care and expected duration. Pain level reassessed. Patient is alert, oriented x 3, equal unlabored respirations, skin warm/dry/pink. 23:22 Reassessment: No changes from previously documented assessment. Patient and/or family mb9 updated on plan of care and expected duration. Pain level reassessed. Patient is alert, oriented x 3, equal unlabored respirations, skin warm/dry/pink. 23:22 Reassessment: Gave report to [facility]. mb9 23:22 Reassessment: Gave report to transferring nurse DAMASO Moore. mb9 Vital Signs: 15:28 BP 101 / 73; Pulse 67; Resp 18; Temp 97.6(O); Pulse Ox 98% on R/A; Weight 58.06 kg; mb9 Height 5 ft. 2 in. ; 17:30 BP 104 / 67; Pulse 64; Resp 18; Pulse Ox 97% on R/A; ld1 18:18 BP 104 / 67; Pulse 63; Resp 24; Pulse Ox 95% on R/A; ld1 18:50 BP 111 / 65; Pulse 60; Resp 21; Pulse Ox 97% on R/A; ld1 15:28 Body Mass Index 23.41 (58.06 kg, 157.48 cm) mb9 ED Course: 15:28 Patient arrived in ED. mb9 15:30 Triage completed. mb9 15:30 Arm band placed on. mb9 16:40 Ignacio Kohli MD is Attending Physician. rt 17:30 Patient has correct armband on for positive identification. Placed in gown. Bed in low ld1 position. Call light in reach. Side rails up X2. Pulse ox on. NIBP on. monitor technician on. Door closed. Noise minimized. Warm blanket given. Patient is placed in psych hold. 17:54 Chest Single View XRAY In Process Unspecified. EDMS 17:58 Initial lab(s) drawn, by ED staff, sent to lab. Inserted US guided IV inserted by AMANDA Foley, 20G to L upper arm. 18:00 No provider procedures requiring assistance completed. Inserted saline lock: 24 gauge ld1 in left upper arm, using aseptic technique. 18:11 Troponin High Sensitivity Sent. ld1 18:11 BNP Sent. ld1 18:11 CMP Sent. ld1 18:11 CBC with Diff Sent. ld1 18:25 SARS-COV-2 RT PCR Sent. ld1 18:52 Viky Gutierrez, DAMASO is Primary Nurse. ko1 19:10 Attending Physician role handed off by Ignacio Kohli MD adriana 19:10 Major Sheridan MD is Attending Physician. adriana 19:30 Dr. Sheridan initiated transfer to [facility]. wm 19:44 Pt accepted for transfer by Marcelo Hutton. wm 20:35 Blood Culture Adult (2) Sent. mb9 20:36 D-Dimer Sent. mb9 20:36 Ptt, Activated Sent. mb9 20:37 Magnesium Sent. mb9 20:37 BNP Sent. mb9 20:37 Troponin High Sensitivity Sent. mb9 20:37 CMP Sent. mb9 20:37 CBC with Diff Sent. mb9 20:37 Inserted saline lock: 18 gauge in left EJ, using aseptic technique. Blood collected. mb9 done by MD Arvin. 23:23 Patient transferred, IV remains in place. mb9 Administered Medications: 18:18 Drug: Furosemide IVP 40 mg Route: IVP; Site: left upper arm; ld1 19:11 Follow up: Response: No adverse reaction ld1 19:11 Not Given (LOW BP): Nitroglycerin Transdermal Ointment 2 % 1 inches Transdermal once ld1 21:20 Drug: Famotidine IVP 20 mg Route: IVP; Site: Other; mb9 22:17 Follow up: Response: No adverse reaction mb9 21:39 Drug: MethylPrednisoLONE IVP 125 mg Route: IVP; Site: Other; mb9 22:17 Follow up: Response: No adverse reaction mb9 21:39 Drug: Levalbuterol Inhalation 2.5 mg Route: Inhalation; mb9 21:39 Drug: Ipratropium Inhalation Aerosol 0.5 mg Route: Inhalation; mb9 21:39 Not Given (Physician Discretion): Rocephin IV 1 grams IV at per protocol once; Given mb9 slow IV push per pharmacy instructions 22:18 Drug: Heparin (MS-Bolus No thrombolytic) - HEParin IVP 60 units/kg {Co-Signature: vc1 mb9 (Paloma Salazar RN).} Route: IVP; Site: left jugular; 22:18 Drug: Heparin (MS Drip) - (D5W IV 500 ml, [place] [address] units) 12 units/kg/hr mb9 {Co-Signature: vc1 (Paloma Salazar RN).} Route: IV; Rate: calculated rate; Site: left jugular; 23:22 Drug: Ativan IVP 1 mg Route: IVP; Site: left jugular; mb9 23:22 Follow up: Response: No adverse reaction mb9 Medication: 15:34 VIS not applicable for this client. mb9 Outcome: 19:50 ER care complete, transfer ordered by MD. wright 23:22 Transferred by ground EMS to [facility], Transfer form completed. mb9 23:22 Condition: stable 23:22 Instructed on the need for transfer. 23:31 Patient left the ED. mb9 Signatures: Dispatcher [employer] EDMS Major Sheridan MD MD cha Calderon, Audri, RN RN aa5 Charline Goldberg, RN RN ld1 Nury Chu Kathy, RN RN ko1 Liliya Velazquez RN RN mb9 Ignacio Kohli MD MD rt Paloma Salazar RN vc1 Corrections: (The following items were deleted from the chart) 15:34 15:28 Chief complaint: EMS states: "pt has chest pain and SOB. She went on [employer] last mb9 night and based on her symptoms she says she is going to CHF" mb9
--- NOTE | 2022-11-10 16:23 | EDPHYS ---
Physician Documentation [facility] Name: Lise Loera Age: 62 yrs Sex: Female : 1960 Arrival Date: 10/28/2022 Time: 15:28 Bed 4 Private MD: ED Physician Major Sheridan HPI: 10/28 17:59 This 62 yrs old Female presents to ER via EMS with complaints of Shortness Of Breath. rt 17:59 Patient with history of congestive heart failure presents to the ED with chest pain rt described as a tightness as well as a dyspnea, worse with lying down since last night. Patient said similar symptoms previously, states that she believes that she needs Lasix. She denies other acute complaints at this time. Symptoms are moderate in severity, no other aggravating alleviating factors.. Historical: - Allergies: 15:30 Codeine; mb9 15:30 Eliquis; mb9 15:30 PENICILLINS; mb9 15:30 Tylenol; mb9 15:30 Sulfa (Sulfonamide Antibiotics); mb9 - Home Meds: 15:30 Entresto 49-51 mg Oral tab [Active]; amiodarone 100 mg Oral tab 1 tab 2 times per day mb9 [Active]; Aspirin EC Oral [Active]; Lasix 20 mg Oral tab 60 mg in am, 40 mg in pm [Active]; potassium chloride 10 mEq Oral cpER 1 cap once daily [Active]; Xanax 2 mg Oral tab 1 tab 3 times per day [Active]; - PMHx: 15:30 ADD/ADHD; Anxiety; Atrial Fib; Pacemaker; CAD; cancer - skin; Cancer, Breast; CHF; mb9 Hypertension; Myocardial infarction; - PSHx: 15:30 Pacemaker/Defib; mb9 - Immunization history:: Adult Immunizations not up to date. - Family history:: not pertinent. - Social history:: Smoking status: Patient/guardian denies using tobacco. ROS: 17:59 Constitutional: Negative for fever, chills, and weight loss, ENT: Negative for injury, rt pain, and discharge, Abdomen/GI: Negative for abdominal pain, nausea, vomiting, diarrhea, and constipation, MS/Extremity: Negative for injury and deformity, Skin: Negative for injury, rash, and discoloration, Neuro: Negative for headache, weakness, numbness, tingling, and seizure, Psych: Negative for depression, anxiety, suicide ideation, homicidal ideation, and hallucinations. 17:59 Cardiovascular: Positive for chest pain, edema. 17:59 Respiratory: Positive for cough, shortness of breath. Exam: 17:59 Constitutional: This is a well developed, well nourished patient who is awake, alert, rt and in no acute distress. Head/Face: Normocephalic, atraumatic. Chest/axilla: Normal chest wall appearance and motion. Nontender with no deformity. No lesions are appreciated. Cardiovascular: Regular rate and rhythm with a normal S1 and S2. No gallops, murmurs, or rubs. Normal PMI, no JVD. No pulse deficits. Abdomen/GI: Soft, non-tender, with normal bowel sounds. No distension or tympany. No guarding or rebound. No evidence of tenderness throughout. Skin: Warm, dry with normal turgor. Normal color with no rashes, no lesions, and no evidence of cellulitis. MS/ Extremity: Pulses equal, no cyanosis. Neurovascular intact. Full, normal range of motion. Neuro: Awake and alert, GCS 15, oriented to person, place, time, and situation. Cranial nerves II-XII grossly intact. Motor strength 5/5 in all extremities. Sensory grossly intact. Cerebellar exam normal. Normal gait. Psych: Awake, alert, with orientation to person, place and time. Behavior, mood, and affect are within normal limits. 17:59 ECG was reviewed by the Attending Physician. 17:59 Respiratory: bibasilar crackles. Vital Signs: 15:28 BP 101 / 73; Pulse 67; Resp 18; Temp 97.6(O); Pulse Ox 98% on R/A; Weight 58.06 kg; mb9 Height 5 ft. 2 in. ; 17:30 BP 104 / 67; Pulse 64; Resp 18; Pulse Ox 97% on R/A; ld1 18:18 BP 104 / 67; Pulse 63; Resp 24; Pulse Ox 95% on R/A; ld1 18:50 BP 111 / 65; Pulse 60; Resp 21; Pulse Ox 97% on R/A; ld1 15:28 Body Mass Index 23.41 (58.06 kg, 157.48 cm) 9 Procedures: 20:32 Peripheral line: by aseptic technique a peripheral line was placed in the left external adriana jugular vein. MDM: 16:45 Patient medically screened. rt 20:29 Differential diagnosis: CHF exacerbation, Chronic Obstructive Pulmonary Disease adriana pneumonia, pulmonary edema, Pulmonary Embolism reactive airway disease, Sepsis Unstable Angina. Antibiotic administration: Rocephin and Zithromax given. Immunization status: Influenza vaccine: Data reviewed: vital signs, nurses notes, lab test result(s), EKG, radiologic studies, CT scan, plain films. Consideration of Admission/Observation Patient was admitted/placed on observation. Escalation of care including admission/observation considered. I considered the following discharge prescriptions or medication management in the emergency department Medications were administered in the Emergency Department. See MAR. Test considered but Not performed: Ultrasound no echo. Care significantly affected by the following chronic conditions: Congestive Heart Failure, anxiety, a fib,cad. Counseling: I had a detailed discussion with the patient and/or guardian regarding: the historical points, exam findings, and any diagnostic results supporting the discharge/admit diagnosis, lab results, radiology results, the need to transfer to another facility. 10/28 17:05 Order name: CBC with Diff; Complete Time: 21:25 rt 10/28 17:05 Order name: CMP; Complete Time: 21:25 rt 10/28 17:05 Order name: Troponin High Sensitivity; Complete Time: 21:25 rt 10/28 17:05 Order name: BNP; Complete Time: 21:25 rt 10/28 17:52 Order name: SARS-COV-2 RT PCR; Complete Time: 19:08 kj1 10/28 19:34 Order name: Magnesium [facility] 10/28 19:48 Order name: Blood Culture Adult (2) [facility] 10/28 20:31 Order name: Ptt, Activated 10/28 20:34 Order name: D-Dimer 10/28 20:54 Order name: PTT, Activated Partial Thromb; Complete Time: 21:25 EDMS 10/28 21:02 Order name: D-Dimer; Complete Time: 21:25 EDMS 10/28 21:04 Order name: Magnesium; Complete Time: 21:25 EDMS 10/28 17:05 Order name: Chest Single View XRAY; Complete Time: 18:12 rt 10/28 20:32 Order name: CT Chest Abdomen Pelvis W/O Contrast [facility] 10/28 21:14 Order name: CT; Complete Time: 21:25 EDMS 10/28 17:05 Order name: EKG; Complete Time: 17:05 rt 10/28 17:05 Order name: EKG - Nurse/Tech; Complete Time: 18:00 rt EC:59 Rate is 60 beats/min. Rhythm is regular, Paced with No ectopy. QRS [place] is Normal. QRS rt interval is normal. QT interval is normal. T waves are Normal. Interpreted by me. Administered Medications: 18:18 Drug: Furosemide IVP 40 mg Route: IVP; Site: left upper arm; ld1 19:11 Follow up: Response: No adverse reaction ld1 19:11 Not Given (LOW BP): Nitroglycerin Transdermal Ointment 2 % 1 inches Transdermal once ld1 21:20 Drug: Famotidine IVP 20 mg Route: IVP; Site: Other; mb9 22:17 Follow up: Response: No adverse reaction mb9 21:39 Drug: MethylPrednisoLONE IVP 125 mg Route: IVP; Site: Other; mb9 22:17 Follow up: Response: No adverse reaction mb9 21:39 Drug: Levalbuterol Inhalation 2.5 mg Route: Inhalation; mb9 21:39 Drug: Ipratropium Inhalation Aerosol 0.5 mg Route: Inhalation; mb9 21:39 Not Given (Physician Discretion): Rocephin IV 1 grams IV at per protocol once; Given mb9 slow IV push per pharmacy instructions 22:18 Drug: Heparin (MA-Bolus No thrombolytic) - HEParin IVP 60 units/kg {Co-Signature: vc1 mb9 (Paloma Salazar RN).} Route: IVP; Site: left jugular; 22:18 Drug: Heparin (MA Drip) - (D5W IV 500 ml, [place] [address] units) 12 units/kg/hr mb9 {Co-Signature: vc1 (Paloma Salazar RN).} Route: IV; Rate: calculated rate; Site: left jugular; 23:22 Drug: Ativan IVP 1 mg Route: IVP; Site: left jugular; mb9 23:22 Follow up: Response: No adverse reaction mb9 Disposition Summary: 10/28/22 19:50 Transfer Ordered Transfer Location: [facility] adriana Reason: Higher level of care adriana Condition: Fair adriana Problem: an acute exacerbation adriana Symptoms: have worsened adriana Accepting Physician: to dr heidi layton(10/28/22 23:31) mb9 Diagnosis - Chest pain, unspecified adriana - Dyspnea adriana - Presence of cardiac pacemaker adriana - Unspecified kidney failure adriana - Pleural effusion, not elsewhere classified adriana Forms: - Medication Reconciliation Form adriana - SBAR form adriana Signatures: Dispatcher [employer] EDMajor Long MD MD cha Mickail, Joel, PA PA jmm Dibbern, Lauren RN RN ld1 Viky Gutierrez RN RN ko1 Liliya Velazquez RN RN mb9 Ignacio Kohli MD MD rt Paloma Salazar RN vc1 Corrections: (The following items were deleted from the chart) 21:27 19:[address] heidi layton cha adriana 23:31 21:[address] heidi layton cha mb9
== END 2022-10-28 23:31 | disposition short-term general hospital (02) ==
LOC: ER 15:26
PROC: 05HQ33Z Insertion of Infusion Device into Left External Jugular Vein, Percutaneous Approach (ICD-10-PCS; principal; 2022-10-28)
DX: R07.89 Other chest pain (principal); J90 Pleural effusion, not elsewhere classified; R06.00 Dyspnea, unspecified; N19 Unspecified kidney failure; I50.9 Heart failure, unspecified; Z95.810 Presence of automatic (implantable) cardiac defibrillator; I10 Essential (primary) hypertension; I48.91 Unspecified atrial fibrillation; Z20.822 Contact with and (suspected) exposure to COVID-19; Z88.0 Allergy status to penicillin; Z88.2 Allergy status to sulfonamides; Z88.5 Allergy status to narcotic agent; Z88.6 Allergy status to analgesic agent; Z88.8 Allergy status to other drugs, medicaments and biological substances
CPT/HCPCS: 93005; 87040 ×2; 85025; 36415; 83735; 85379; 85730; 84484; 80053; 83880; 71250; 74176; 71045; 99285; 36569; U0003; J1644; J7614; J1940; J7644; J2930; J0696